=== PATIENT | female | born 1970 | race Caucasian/White ===

== ENCOUNTER 2023-02-21 20:42 | Outpatient (REF) | payer BC, SELFPAY ==
[2023-02-25 13:09] LABS: Age Gdln ACOG Testing Note (.); HPV Aptima Negative (Negative); IGP, Aptima HPV, rfx 16/18,45 Note (.)
== END 2023-02-21 20:43 | disposition home or self-care (01) ==
LOC: LAB 20:42
PROVIDERS: PCP Obstetrics & Gynecology; Visit Provider Obstetrics & Gynecology
DX: Z12.4 Encounter for screening for malignant neoplasm of cervix (principal)
CPT/HCPCS: 87624; G0145

== ENCOUNTER 2024-01-11 13:36 | Outpatient (RCR) | payer OTHER, SELFPAY | END 2024-02-20 10:29 | disposition home or self-care (01) | LOC: OT 13:36 | PROVIDERS: PCP Family Medicine | DX: M77.12 Lateral epicondylitis, left elbow (principal) | CPT/HCPCS: 97014; 97035; 97140; 97165; 97530 ==

== ENCOUNTER 2024-03-07 20:33 | Outpatient (REF) | payer BC, SELFPAY ==
--- OUTSIDE RECORDS SUMMARY | 2024-03-07 20:38 | XMS_ITS | CCD ---
Author Organization [facility] Care Team Providers Care Camp Tender Name Role Phone LILIANE ZAVALA Primary Care Unavailable JESSICA FREITAS Admitting Unavailable JESSICA FREITAS Attending Unavailable NO BELTRAN Referring Unavailable LILIANE ZAVALA Primary Care Unavailable JESSICA FREITAS Admitting Unavailable JESSICA FREITAS Attending Unavailable SELF, REFERRED Referring Unavailable Liliane Zavala Unavailable ALVIN ., DR SCHUMACHER Consulting Unavailable ALVIN ., DR SCHUMACHER Admitting Unavailable ZAVALA, DR LILIANE Poon Primary Care Unavailable ALVIN ., DR SCHUMACHER Attending Unavailable ALVIN ., DR SCHUMACHER Attending Unavailable [place], DR SEDA Donaldson Consulting Unavailable SALLY, DR LILIANE Poon Primary Care Unavailable ALVIN ., DR SCHUMACHER Admitting Unavailable ALVIN ., DR SCHUMACHER Consulting Unavailable JANIYA HAYES Consulting Unavailable ALESHA TREVIÑO Attending Unavailable SALLY, DR LILIANE Poon Primary Care Unavailable ALESHA TREVIÑO Admitting Unavailable SALLY, DR LILIANE Poon Primary Care Unavailable SALLY, DR LILIANE Poon Admitting Unavailable SALLY, DR LILIANE Poon Attending Unavailable SALLY, DR LILIANE Poon Consulting Unavailable MD Liliane Zavala Primary Care Provider MC Rausch Attending Provider Liliane Zavala MD Primary Care Provider MD Liliane Zavala Primary Care Provider MC Rausch Attending Provider MD Liliane Zavala Primary Care Provider MC Rausch Attending Provider MD Liliane Zavala Primary Care Provider MC Rausch Attending Provider WINSOME ESQUIVEL Attending Unavailable MD Liliane Zavala Primary Care Provider MC Rausch Attending Provider DO Pasha Kinney Attending Provider [phone] Rausch, Adriane D Admitting Unavailable Zavala, Liliane E Primary Care Unavailable Rausch, Adriane D Attending Unavailable Zavala, Liliane E Primary Care Unavailable Rausch, Adriane D Admitting Unavailable Rausch, Adriane D Attending Unavailable Zavala, Liliane E Primary Care Unavailable Pasha Kinney Admitting Unavailable Pasha Kinney Attending Unavailable Rausch, Adriane D Admitting Unavailable Zavala, Liliane E Primary Care Unavailable Rausch, Adriane D Attending Unavailable Rausch, Adriane D Admitting Unavailable Zavala, Liliane E Primary Care Unavailable Rausch, Adriane D Attending Unavailable Rausch, Adriane D Admitting Unavailable Zavala, Liliane E Primary Care Unavailable Rausch, Adriane D Attending Unavailable Rausch, Adriane D Admitting Unavailable Zavala, Liliane E Primary Care Unavailable Rausch, Adriane D Attending Unavailable Zavala, Liliane E Primary Care Unavailable Rausch, Adriane D Admitting Unavailable Rausch, Adriane D Attending Unavailable Rausch, Adriane D Admitting Unavailable Zavala, Liliane E Primary Care Unavailable Ruasch, Adriane D Attending Unavailable Rausch, Adriane D Admitting Unavailable Zavala, Liliane E Primary Care Unavailable Rausch, Adriaen D Attending Unavailable Allergies Allergy Classification Reported Allergen(s) Allergy Type Date of Onset Reaction(s) Facility (14 sources) Codeine Drug Allergy 6 Hives [facility] Repository (13 sources) Midazolam Drug Allergy 9 Hives, VERSED [facility] Repository (6 sources) Codeine Drug Allergy 9 hives [facility] Work Phone: (6 sources) Midazolam; Translations: [Versed] Drug Allergy 6 hives [facility] Repository (1 source) Codeine Drug Allergy Unknown [facility] Other (1 source) Allergies Reconciled Propensity to adverse reactions Unknown [employer] Other (1 source) Versed *HYPNOTICS/CARLOTTA TIVES/SLEEP DISORDER AGENTS* Propensity to adverse reactions Unknown [employer] Other (1 source) patient allergy list reviewed by nurse or physicia Propensity to adverse reactions 6 Comment:Done [employer] Other (1 source) Midazolam Drug Allergy 2 [facility] (7 sources) Versed *HYPNOTICS/CARLOTTA TIVES/SL Allergy to substance 3 [facility] (1 source) Codeine Drug Allergy 1 [facility] Repository (1 source) Midazolam Drug Allergy 1 [facility] Repository Medications Current Medications Medication Drug Class(es) Dates Sig (Normalized) Sig (Original) ascorbic acid 500 mg oral capsule (1 source) Vitamin C Ascorbic Acid (Vitamin C) 500 MG capsule Orally 0 Active Calcium (1 source) Phosphate Binder, Calcium calcium 200 MG tablet Calcium 0 Active cetirizine hydrochloride 10 mg oral tablet (4 sources) Histamine-1 Receptor Antagonist take 1 tablet by mouth once daily ZyrTEC 10 MG 1 tablet Orally Once a day Active cholecalciferol 0.025 mg oral capsule (1 source) Vitamin D cholecalciferol (Vitamin D-3) 25 MCG (1000 UT) capsule Vitamin D-3 0 Active 24 hr dilTIAZem hydrochloride 120 mg extended release oral capsule (11 sources) Calcium Channel Jessica Start: 2018 take 1 capsule by mouth once daily, then take 1 capsule by mouth every twenty-four hours Diltiazem Hcl (Cardizem Cd) 120 mg capsule,extended release 24hr Active 120 MG PO Daily 60 August 31, 2018 1:00am 1 ml medroxyPROGESTERone acetate 150 mg/ml injection (8 sources) Progestin Start: 2023 End: 2023 medroxyPROGESTERone (Depo-Provera) injection 150 mg Start: 08-02-2023 End: 08-02-2023 medroxyPROGESTERone (Depo-Pr overa) injection 150 mg Start: 05-09-2023 End: 08-02-2023 medroxyPROGESTERone (Depo-Pr overa) 150 MG/ML injection Indications: control counseling Inject 1 mL (150 mg) into the shoulder, thigh, or buttocks every 3 (three) months 1 mL 0 07/25/2023 Active Depo-Provera 150 MG/ML 1 mL Intramuscular Active Multivitamin preparation (11 sources) Start: 08-31-2018 take 1 tablet by mouth once daily Multivitamin Active 1 TAB PO Daily August 31, 2018 1:00am Start: 08-31-2018 take 1 tablet by paulo th once daily Multivitamin Active 1 TAB PO Daily August 31, 2018 12:00am sertraline 50 mg oral tablet (3 sources) Serotonin Reuptake Inhibitor Start: 12-11-2022 take 1 tablet by mouth once daily Sertraline HCl 50 MG 1 tablet Orally Once a day for 30 days Nov, Active Start: 12-11-2022 tazarotene 0.45 mg/ml topica l lotion (4 sources) Retinoid Arazlo 0.045 % 1 application Externally Once a day Active Arazlo 0.045 % 1 application Externally Once a day Active zolpidem tartrate 6.25 mg extended release oral tablet (13 sources) gamma-Aminobutyric Acid-ergic Agonist Start: 08-10-2023 End: 09-26-2023 take 6.25 mg by mouth once daily at bedtime Zolpidem Active 6.25 MG PO Daily at bedtime September 26, 2023 12:45pm Start: 06-22-2023 End: 08-02-2023 take 1 tablet by mouth once daily at bedtime as needed zolpidem CR (Ambien CR) 6.25 MG ER tablet TAKE 1 TABLET BY MOUTH EVERYDAY AT BEDTIME NEEDED 0 06/22/2023 08/02/2023 Discontinued Problems Active Problems Problem Classification Problem Date Documented Da te Episodic/Chronic Adjustment disorders (6 sources) Adjustment disorder with mixed emotional features; Translations: [Adjustment disorder with mixed anxiety and depressed mood] Onset: 7 Chronic Anxiety disorders (1 source) Anxiety disorder; Translations: [Other specified anxiety disorders] Onset: 8 Chronic Asthma (4 sources) Asthma; Translations: [Unspecified asthma, uncomplicated] Chronic Cardiac dysrhythmias (1 source) Supraventricular tachycardia; Translations: [Supraventricular tachycardia] Chronic Contraceptive and procreative management (3 sources) Surveillance of depot contraception done; Translations: [Encounter for surveillance of injectable contraceptive] Onset: 2 Resolved: 1 07-28-2023 Episodic Immunizations and screening for infectious disease (2 sources) Encounter for screening for human papillomavirus (HPV); Translations: [Human papilloma virus screening] Onset: 2 Episodic Malaise and fatigue (2 sources) Other fatigue; Translations: [OTHER FATIGUE] Onset: 3 Episodic Mycoses (1 source) Candidiasis; Translations: [Candidiasis, unspecified] Episodic Other aftercare (1 source) Long-term current use of drug therapy; Translations: [Other senior care (current) drug therapy] Episodic Other connective tissue disease (5 sources) Pain in right lower leg; Translations: [PAIN IN RIGHT LOWER LEG] Onset: 3 Episodic Other connective tissue disease (1 source) Trochanteric bursitis, right hip Episodic Other connective tissue disease (2 sources) Lateral epicondylitis of left humerus; Translations: [Lateral epicondylitis, left elbow] 02-29-2024 Episodic Other connective tissue disease (3 sources) Lateral epicondylitis, left elbow; Translations: [Lateral epicondylitis] Onset: 4 03-01-2024 Episodic Other screening for suspected conditions (not mental disorders or infectious disease) (10 sources) Encounter for screening mammogram for malignant neoplasm of breast; Translations: [Encounter for screening for malignant neoplasm of cervix] Onset: 2 Episodic Other upper respiratory infections (1 source) Chronic sinusitis; Translations: [Chronic sinusitis, unspecified] Chronic Phlebitis; thrombophlebitis and thromboembolism (5 sources) Deep venous thrombosis of peroneal vein; Translations: [Acute embolism and thrombosis of unspecified deep veins of left distal lower extremity] Onset: 9 Episodic Residual codes; unclassified (4 sources) Postmenopausal state; Translations: [Asymptomatic menopausal state] Onset: 2 Episodic Residual codes; unclassified (1 source) Postprocedural state finding; Translations: [Other specified postprocedural states] Episodic Residual codes; unclassified (1 source) Tobacco user; Translations: [Tobacco use] Episodic Residual codes; unclassified (7 sources) Insomnia; Translations: [Insomnia, unspecified] 08-10-2023 Episodic Unclassified (1 source) Acute candidiasis of vulva and vagina; Translations: [Acute candidiasis of vulva and vagina] Unclassified (1 source) Lateral epicondylitis, left elbow; Translations: [Lateral epicondylitis, left elbow] Onset: 3 Viral infection (11 sources) Disease caused by nCoV; Translations: [COVID-19] 05-24-2021 Episodic Viral infection (1 source) Disease caused by nCoV; Translations: [COVID-19] Past or Other Problems Problem Classification Problem Date Documented Date Episodic/Chronic Blindness and vision defects (1 source) Visual disturbance; Translations: [Unspecified visual disturbance] Onset: 03-07-2018 Episodic Headache; including migraine (1 source) Headache; Translations: [Headache] Onset: 03-07-2018 Episodic Other connective tissue disease (1 source) Pain in limb; Translations: [Pain in soft tissues of limb] Onset: 11-02-2018 Episodic Other female genital disorders (1 source) Dysplasia of cervix; Translations: [Dysplasia of cervix uteri, unspecified] Onset: 02-04-2016 Episodic Other upper respiratory infections (1 source) Acute maxillary sinusitis; Translations: [Acute recurrent maxillary sinusitis] Onset: 08-13-2016 Episodic Residual codes; unclassified (1 source) Asymptomatic menopausal state; Translations: [ASYMPTOMATIC MENOPAUSAL STATE] Onset: 05-10-2022 Episodic Residual codes; unclassified (1 source) Other specified health status; Translations: [Health status] Resolved: 02-18-2021 Episodic Spondylosis; intervertebral disc disorders; other back problems (1 source) Disorder of sacrococcygeal spine; Translations: [Sacrococcygeal disorders, not elsewhere classified] Onset: 07-01-2016 Episodic Unclassified (1 source) Contraception care management; Translations: [Unspecified contraceptive management] Results Test Name Value Interpretation Reference Range Facility XR elbow LT min 3V*on 2023 XR elbow LT min 3V* [facility] [address] [place] [address] XRay Report Signed Patient: Julia Quispe MR#: [id number] 74 : 1970 Acct:[id number] Age/Sex: 53 / F ADM Date: 03/01/24 Loc: SOXD Room: Type: [facility] Attending Dr: Pasha Kinney DO Copies to: Pasha Kinney DO Ordering Provider: Pasha Kinney DO Date of Service: 03/01/24 XR/XR elbow LT min 3V*: M77.12 - Lateral epicondylitis, left elbow LEFT ELBOW - 4 VIEWS CLINICAL HISTORY: Left lateral epicondylitis COMPARISON: None AP, lateral and both oblique views were obtained. There is no evidence of fracture or dislocation. There are no significant soft tissue abnormalities. There is no elbow effusion. XR/XR elbow LT min 3V* IMPRESSION: NO ACUTE BONY FINDINGS. Impression dictated by: Nikole Macdonald M.D.03/01/2024 3:31 PM Dictation Location: [place] [address] Transcribed By: [facility] 03/01/24 1531 Dictated By: Nikole Macdonald MD 03/01/24 1530 Signed By: 03/01/24 1531 Normal [facility] HCG ( test) Ql (U)o n 08-02-2023 Interpretation and review of laboratory results Normal [facility] Healt[facility] re Preg Test, Ur Negative [facility] CBC AUTO DIFFon 10-27-2022 BASO # 0.0 103/ul Normal 0.0-0.1 [facility] Comment on above: Performed By: #### C BC #### [facility] [address] [place] [address] Dr. Neeta Nunez Basophils/100 WBC (Bld) 0.3 % Normal 0.2-2.0 [facility] Comment on above: Performed By: #### C BC #### [facility] [address] [place] [address] Dr. Neeta Nunez EO # 0.0 103/ul Normal 0.0-0.7 [facility] Comment on above: Performed By: #### C BC #### [facility] [address] [place] [address] Dr. Neeta Nunez Eosinophils/100 WBC (Bld) 0.3 % Critically low 0.9-7.0 [facility] Comment on above: Performed By: #### C BC #### [facility] [address] [place] [address] Dr. Neeta Nunez Erythrocyte distribution width (RBC) [Ratio] 12.9 % Normal 11.0-15.0 [facility] Comment on above: Performed By: #### C BC #### [facility] [address] [place] [address] Dr. Neeta Nunez Hematocrit (Bld) [Volume fraction] 44.3 % Normal 36.0-48.0 [facility] Comment on above: Performed By: #### C BC #### [facility] [address] [place] [address] Dr. Neeta Nunez Hemoglobin (Bld) [Mass/Vol] 14.6 g/dL Normal 12.0-16.0 [facility] Comment on above: Performed By: #### C BC #### [facility] [address] [place] [address] Dr. Neeta Nunez IG # 0.01 10e3/ul Normal 0.00-0.03 [facility] Comment on above: Performed By: #### C BC #### [facility] [address] [place] [address] Dr. Neeta Nunez IG % 0.1 % Normal 0.0-0.5 [facility] Comment on above: Performed By: #### C BC #### [facility] [address] [place] [address] Dr. Neeta Nunez LYMPH # 2.4 103/ul Normal 1.2-3.8 [facility] Comment on above: Performed By: #### C BC #### [facility] [address] [place] [address] Dr. Neeta Nunez Lymphocytes/100 WBC (Bld) 32.5 % Normal 20.5-60.0 [facility] Comment on above: Performed By: #### C BC #### [facility] [address] [place] [address] Dr. Neeta Nunez MANUAL DIFF REQ NO Normal [facility] Comment on above: Performed By: #### C BC #### [facility] [address] [place] [address] Dr. Neeta Nunez MCH (RBC) [Entitic mass] 31.7 pg Normal 26.7-34.0 [facility] Comment on above: Performed By: #### C BC #### [facility] [address] [place] [address] Dr. Neeta Nunez MCHC (RBC) [Mass/Vol] 33.0 g/dL Normal 29.9-35.2 [facility] Comment on above: Performed By: #### C BC #### [facility] [address] [place] [address] Dr. Neeta Nunez MCV (RBC) [Entitic vol] 96.1 fL Normal 81.0-99.0 [facility] Comment on above: Performed By: #### C BC #### [facility] [address] [place] [address] Dr. Neeta Nunez MONO # 0.4 103/ul Normal 0.3-0.8 [facility] Comment on above: Performed By: #### C BC #### [facility] [address] [place] [address] Dr. Neeta Nunez Monocytes/100 WBC (Bld) 5.3 % Normal 1.7-12.0 [facility] Comment on above: Performed By: #### C BC #### [facility] [address] [place] [address] Dr. Neeta Nunez NEUT # 4.6 103/ul Normal 1.4-6.5 [facility] Comment on above: Performed By: #### C BC #### [facility] [address] [place] [address] Dr. Neeta Nunez Neutrophils/100 WBC (Bld) 61.5 % Normal 43.0-75.0 [facility] Comment on above: Performed By: #### C BC #### [facility] [address] [place] [address] Dr. Neeta Nunez Platelet mean volume (Bld) [Entitic vol] 8.6 fL Critically low 9.5-13.5 [facility] Comment on above: Performed By: #### C BC #### [facility] [address] [place] [address] Dr. Neeta Nunez PLT 278 103/ul Normal 150-450 [facility] Comment on above: Performed By: #### C BC #### [facility] [address] [place] [address] Dr. Neeta Nunez RBC 4.61 106/ul Normal 4.20-5.40 [facility] Comment on above: Performed By: #### C BC #### [facility] [address] [place] [address] Dr. Neeta Nunez WBC 7.4 103/ul Normal 4.0-11.0 [facility] Comment on above: Performed By: #### C BC #### [facility] [address] [place] [address] Dr. Neeta Nunez D-DIMERon 10-27-2022 D-DIMER 0.22 mg/L FEU Normal <=0.59 [facility] Comment on above: Performed By: #### D DIM #### [facility] [address] [place] [address] Dr. Neeta Nunez D-DIMER COMMENTS SEE BELOW Normal [facility] Comment on above: Result Comment: Incr eases in D-Dimer concentration observed with thromboembolic events can be variable due to localization, size, and age of the thrombus. Therefore, a thromboembolic event cannot be diagnosed with certainty on the basis of the reference range. D-Dimers may also be elevated for a variety of disorders including: advanced age, , coronary disease, cancer, liver disease, infection, inflammation, hematoma, DIC, trauma, post-surgery, diabetes, thrombolytic or anticoagulant therapy, stress, and generalized hospitalization. Performed By: #### D DIM #### [facility] [address] [place] [address] Dr. Neeta Nunez FREE T4on 10-27-2022 Free T4 [Mass/Vol] 0.94 ng/dL Normal 0.76-1.46 [facility] Comment on above: Performed By: #### F T4 #### [facility] [address] [place] [address] Dr. Neeta Nunez PROF CHEM 8 (BAS METB)on Anion gap [Moles/Vol] 13.2 mmol/L Normal [facility] Comment on above: Performed By: #### T SH, BMP #### [facility] [address] [place] [address] Dr. Neeta Nunez Calcium [Mass/Vol] 9.8 mg/dL Normal 8.5-10.1 [facility] Comment on above: Performed By: #### T SH, BMP #### [facility] [address] [place] [address] Dr. Neeta Nunez Chloride [Moles/Vol] 102 mmol/L Normal 98-107 [facility] Comment on above: Performed By: #### T SH, BMP #### [facility] [address] [place] [address] Dr. Neeta Nunez CO2 [Moles/Vol] 28.2 mmol/L Normal 21.0-32.0 [facility] Comment on above: Performed By: #### T SH, BMP #### [facility] [address] [place] [address] Dr. Neeta Nunez Creatinine [Mass/Vol] 0.88 mg/dL Normal 0.55-1.02 [facility] Comment on above: Performed By: #### T SH, BMP #### [facility] [address] [place] [address] Dr. Neeta Nunez EGFR-AF [place]OU[place] >60 Normal >=60 [facility] Comment on above: Performed By: #### T SH, BMP #### [facility] [address] [place] [address] Dr. Neeta Nunez EGFR-NON AF [place] >60 Normal >=60 [facility] Comment on above: Performed By: #### T SH, BMP #### [facility] [address] [place] [address] Dr. Neeta Nunez Glucose [Mass/Vol] 103 mg/dL Normal 74-106 [facility] Comment on above: Performed By: #### T SH, BMP #### [facility] [address] [place] [address] [address] Neeta Nunez Potassium [Moles/Vol] 3.4 mmol/L Critically low 3.5-5.1 [facility] Comment on above: Performed By: #### T SH, BMP #### [facility] [address] [place] [address] [address] Neeta Nunez Sodium [Moles/Vol] 140 mmol/L Normal 136-145 [facility] Comment on above: Performed By: #### T SH, BMP #### [facility] [address] [place] [address] [address] Neeta Nunez Urea nitrogen [Mass/Vol] 21.0 mg/dL Critically high 7.0-18.0 [facility] Comment on above: Performed By: #### T SH, BMP #### [facility] [address] [place] [address] Dr. Neeta Nunez Urea nitrogen/Creatinine [Mass ratio] 23.9 mg/mg Normal [facility] Comment on above: Performed By: #### T SH, BMP #### [facility] [address] [place] [address] [address] Neeta Nunez TSHon 10-27-2022 TSH 0.980 uIU/mL Normal 0.358-3.740 [facility] Comment on above: Performed By: #### T SH, BMP #### [facility] [address] [place] [address] Dr. Neeta Nunez MG MAMM SCREEN 3D KATARINA CADon 05-07-2022 MG MAMM SCREEN 3D KATARINA CAD Patient: JULIA QUISPE Exam Date: 05/07/2022 : 1970 Gender:F Ordering : DR WINSOME ESQUIVEL . Admission #: [id number] Family : Order #: [id number] CLICK HERE TO VIEW EXAM RADIOLOGY REPORT PROCEDURE: MAMMOGRAM SCREENING 3D BILATERAL CAD COMPARISON: MG MAMM SCREEN 3D KATARINA CAD, 01/08/2021. MG MAMM SCREEN KATARINA W CAD, 12/20/2019. INDICATIONS: Screening mammography Calculator Name NCI Breast Cancer Risk Assessment Tool 5 Year Breast Cancer Risk 1.80% Lifetime Breast Cancer Risk 16.20% Personal Breast Cancer No Personal Ovarian Cancer No Treatments None Family Cancers None LOCATION: [facility] BREAST COMPOSITION: Heterogeneously dense,which may obscure small masses. FINDINGS: DIAGNOSTIC CATEGORY 1--NEGATIVE. NO CHANGE FROM COMPARISON ASSESSMENT. Scattered benign-appearing calcifications are present. Scattered benign-appearing lymph nodes are present. RIGHT BREAST: No significant suspicious finding. Stable micro clip marker lower inner quadrant LEFT BREAST: No significant suspicious finding. RECOMMENDATIONS: ROUTINE MAMMOGRAM AND CLINICAL EVALUATION IN 12 MONTHS. PLEASE NOTE: A NORMAL MAMMOGRAM DOES NOT EXCLUDE THE POSSIBILITY OF BREAST CANCER. A CLINICALLY SUSPICIOUS PALPABLE LUMP SHOULD BE BIOPSIED. Dictated by: Seda Urias MD on 05/07/2022 at 09:14 Approved by: Seda Urias MD on 05/07/2022 at 09:15 Normal [facility] XR DEXA BONE DENSITYon 05-07 XR DEXA BONE DENSITY EXAMINATION: XR DEXA BONE DENSITY, 05/07/2022 6:50 AM EST HISTORY: Menopause present COMPARISON: DEXA bone densitometry 01/28/2016 TECHNIQUE: Dual-energy X-ray absorptiometry (DEXA) bone density study performed for the axial skeleton. FINDINGS: SPINE ANALYSIS: Average bone mineral density is 1.165 g/cm2. T-score (standard deviation relative to young adult mean): -0.1 . -10.6% change since prior study. HIP ANALYSIS: Lowest bone mineral density is within the right femoral neck, 0.917 g/cm2. T-score (standard deviation relative to young adult mean): -0.9 . -11.7% change since prior study. IMPRESSION: [employer] Classification: Normal - Low Fracture Risk Electronically authenticated by: JANIYA HAYES Date: 2022-05-07 07:27 Normal [facility] Abstracton 02-25-2022 Abstract [id number] Alia Qusipe 1970 F Date Provider Department Center 02/25/2022 [id number] ALVARES [facility] Comprehensiv Family History Problem Relation Age of Onset Atrial fibrillation Mother Atrial fibrillation Father Family Status - Relation Status Age at Mother Father Normal [facility] PAP ACOG PANEL 2: 30 to 65on 02-05-2022 . . Normal [facility] Comment on above: Result Comment: Perf ormed at: WB Performed By: #### 4 [id number] #### [facility] [address] [place] [address] Dr. Neeta Nunez Age Gdln ACOG Testing 30-65 Normal [facility] Comment on above: Performed By: #### 4 [id number] #### [facility] [address] [place] [address] Dr. Neeta Nunez DIAGNOSIS: Comment Normal [facility] Comment on above: Result Comment: NEGA TIVE FOR INTRAEPITHELIAL LESION OR MALIGNANCY. CELLULAR CHANGES ASSOCIATED WITH ATROPHY ARE PRESENT. Performed at: WB Performed By: #### 4 [id number] #### [facility] [address] [place] [address] Dr. Neeta Nunez HPV Aptima Negative Normal Negative [facility] Comment on above: Result Comment: This nucleic acid amplification test detects fourteen high-risk HPV types (16,18,31,33,35,39,45,51,52,56,58,59,66,68) without differentiation. Performed at: =G Performed By: #### 4 [id number] #### [facility] [address] [place] [address] Dr. Neeta Nunez Methodology: Comment Normal [facility] Comment on above: Result Comment: This liquid based ThinPrep(R) pap test was screened with the use of an image guided system. Performed at: WB Performed By: #### 4 [id number] #### [facility] [address] [place] [address] Dr. Neeta Nunez Note: Comment Normal [facility] Comment on above: Result Comment: The Pap smear is a screening test designed to aid in the detection of premalignant and malignant conditions of the uterine cervix. It is not a diagnostic procedure and should not be used as the sole means of detecting cervical cancer. Both false-positive and false-negative reports do occur. . Performed at: WB Performed By: #### 4 [id number] #### [facility] [address] [place] [address] Dr. Neeta Nunez Performed by: Comment Normal [facility] Comment on above: Result Comment: Herb White, [employer]n [employer] (ASCP) Performed at: WB Performed By: #### 4 [id number] #### [facility] [address] [address] [address] Neeta Nunez Specimen adequacy: Comment Normal [facility] Comment on above: Result Comment: Sati sfactory for evaluation. Endocervical component may not be distinguished in cases of atrophy. Performed at: WB Performed By: #### 4 [id number] #### [facility] [address] [address] [address] Neeta Nunez BASIC METABOLIC PANELon 05- Calcium [Mass/Vol] 9.1 mg/dL Normal 8.6-10.3 [facility] Comment on above: Order Comment: No: D o not add to previous draw Performed By: #### 1 0070, 95804, 66420 #### [facility] [address] [place] [address], [place] Chloride [Moles/Vol] 105 mmol/L Normal 98-107 [facility] Comment on above: Order Comment: No: D o not add to previous draw Performed By: #### 1 0070, 86263, 39156 #### [facility] [address] [place] [address], [place] CO2 [Moles/Vol] 26 mmol/L Normal 21-31 [facility] Comment on above: Order Comment: No: D o not add to previous draw Performed By: #### 1 0070, 55106, 94325 #### [facility] [address] [place] [address], [place] Creatinine [Mass/Vol] 0.68 mg/dL Normal 0.60-1.20 [facility] Comment on above: Order Comment: No: D o not add to previous draw Performed By: #### 1 0070, 85765, 14468 #### [facility] [address] [place] [address], [place] GFR/1.73 sq M.predicted among blacks MDRD (S/P/Bld) [Vol rate/Area] mL/min/{1.73_m2} Normal >60 [facility] Comment on above: Order Comment: No: D o not add to previous draw Performed By: #### 1 0, 73271, 52926 #### [facility] [address] [place] [address], [place] GFR/1.73 sq M.predicted among non-blacks MDRD (S/P/Bld) [Vol rate/Area] mL/min/{1.73_m2} Normal >60 [facility] Comment on above: Order Comment: No: D o not add to previous draw Performed By: #### 1 0070, 56337, 44810 #### [facility] [address] [place] [address], [place] Glucose [Mass/Vol] 90 mg/dL Normal 70-100 [facility] Comment on above: Order Comment: No: D o not add to previous draw Performed By: #### 1 0, 40637, 38341 #### [facility] [address] [place] [address], [place] Potassium [Moles/Vol] 4.0 mmol/L Normal 3.5-5.1 [facility] Comment on above: Order Comment: No: D o not add to previous draw Performed By: #### 1 0, 57362, 54095 #### [facility] [address] [place] [address], [place] Sodium [Moles/Vol] 137 mmol/L Normal 136-145 [facility] Comment on above: Order Comment: No: D o not add to previous draw Performed By: #### 1 0070, 51980, 37545 #### [facility] [address] [place] [address], [place] Urea nitrogen [Mass/Vol] 7 mg/dL Normal 7-25 [facility] Comment on above: Order Comment: No: D o not add to previous draw Performed By: #### 1 0, 58367, 93210 #### [facility] [address] [place] [address], [facility] CBC COMPLETE BLOOD COUNTon 11-07-2021 Erythrocyte distribution width (RBC) [Ratio] 13.6 % Normal 11.5-15.0 [facility] Comment on above: Order Comment: RLQ P ERIHEPATIC FLUID DRAINAGE Performed By: #### 3 0310 #### [facility] [address] [place] [address], [facility] Hematocrit (Bld) [Volume fraction] 29.5 % Low 36.0-45.0 [facility] Comment on above: Order Comment: RLQ P ERIHEPATIC FLUID DRAINAGE Performed By: #### 3 0310 #### [facility] [address] [place] [address], [facility] Hemoglobin (Bld) [Mass/Vol] 8.7 g/dL Low 12.0-15.0 [facility] Comment on above: Order Comment: RLQ P ERIHEPATIC FLUID DRAINAGE Performed By: #### 3 0310 #### [facility] [address] [place] [address], [facility] MCH (RBC) [Entitic mass] 28.5 pg Normal 27.0-33.0 [facility] Comment on above: Order Comment: RLQ P ERIHEPATIC FLUID DRAINAGE Performed By: #### 3 0310 #### [facility] [address] [place] [address], [facility] MCHC (RBC) [Mass/Vol] 29.5 g/dL Low 32.0-35.0 [facility] Comment on above: Order Comment: RLQ P ERIHEPATIC FLUID DRAINAGE Performed By: #### 3 0310 #### [facility] [address] [place] [address], [facility] MCV (RBC) [Entitic vol] 96.7 fL Normal 82.0-98.0 [facility] Comment on above: Order Comment: RLQ P ERIHEPATIC FLUID DRAINAGE Performed By: #### 3 0310 #### [facility] [address] [place] [address], [facility] Nucleated RBC/100 WBC (Bld) [Ratio] 0 % Normal 0-0 [facility] Comment on above: Order Comment: RLQ P ERIHEPATIC FLUID DRAINAGE Performed By: #### 3 0310 #### [facility] [address] [place] [address], [facility] PLAT CNT 422 10*3/uL High 150-400 [facility] Comment on above: Order Comment: RLQ P ERIHEPATIC FLUID DRAINAGE Performed By: #### 3 0310 #### [facility] [address] [facility] [place] [address], [facility] RBC (Bld) [#/Vol] 3.05 10*6/uL Low 3.80-5.00 The [facility] Comment on above: Order Comment: RLQ P ERIHEPATIC FLUID DRAINAGE Performed By: #### 3 0310 #### [facility] [address] [facility] [place] [address], [facility] WBC (Bld) [#/Vol] 4.76 10*3/uL Normal 4.00-10.60 [facility] Comment on above: Order Comment: RLQ P ERIHEPATIC FLUID DRAINAGE Performed By: #### 3 0310 #### [facility] [address] [facility]. [address] APTTon 11-06-2021 aPTT Coag (Bld) [Time] 32.4 s Normal 25.0-35.0 [facility] Comment on above: Order Comment: No: D o not add to previous draw Result Comment: ALL RESULTS MUST BE INTERPRETED WITH RESPECT TO BLOOD DRAWING ARTIFACT OR DILUTION ERROR OF ANTICOAGULANT AT THE TIME OF SAMPLING. THE APTT SHOULD NOT BE USED TO MONITOR UNFRACTIONATED HEPARIN THERAPY, THIS LABORATORY NO LONGER HAS AN ESTABLISHED THERAPEUTIC RANGE BASED ON THE APTT. IT IS RECOMMENDED THAT THE UFH - HEPARIN ASSAY (ANTI-XA ACTIVITY) BE USED FOR THIS PURPOSE. Performed By: #### 1 0070, 09219, 83481 #### [facility] [address] [place] [address], [place] BASIC METABOLIC PANELon 05- Calcium [Mass/Vol] 8.9 mg/dL Normal 8.6-10.3 [facility] Comment on above: Order Comment: No: D o not add to previous draw Performed By: #### 1 0070, 10949, 97612 #### [facility] [address] [place] [address], [place] Chloride [Moles/Vol] 105 mmol/L Normal 98-107 [facility] Comment on above: Order Comment: No: D o not add to previous draw Performed By: #### 1 0070, 73741, 57880 #### [facility] [address] [place] [address], [place] CO2 [Moles/Vol] 25 mmol/L Normal 21-31 [facility] Comment on above: Order Comment: No: D o not add to previous draw Performed By: #### 1 0070, 82136, 28405 #### [facility] [address] [place] [address], [place] Creatinine [Mass/Vol] 0.72 mg/dL Normal 0.60-1.20 [facility] Comment on above: Order Comment: No: D o not add to previous draw Performed By: #### 1 0070, 47134, 07761 #### [facility] [address] [place] [address], [place] GFR/1.73 sq M.predicted among blacks MDRD (S/P/Bld) [Vol rate/Area] mL/min/{1.73_m2} Normal >60 [facility] Comment on above: Order Comment: No: D o not add to previous draw Performed By: #### 1 0070, 14385, 61576 #### [facility] [address] [place] [address], [place] GFR/1.73 sq M.predicted among non-blacks MDRD (S/P/Bld) [Vol rate/Area] mL/min/{1.73_m2} Normal >60 [facility] Comment on above: Order Comment: No: D o not add to previous draw Performed By: #### 1 0070, 36894, 96377 #### [facility] [address] [place] [address], [facility] Glucose [Mass/Vol] 95 mg/dL Normal 70-100 The [facility] Comment on above: Order Comment: No: D o not add to previous draw Performed By: #### 1 0070, 37274, 80308 #### [facility] [address] [place] [address], [facility] Potassium [Moles/Vol] 3.9 mmol/L Normal 3.5-5.1 [facility] Comment on above: Order Comment: No: D o not add to previous draw Performed By: #### 1 0070, 78609, 80672 #### [facility] [address] [place] [address], [facility] Sodium [Moles/Vol] 137 mmol/L Normal 136-145 [facility] Comment on above: Order Comment: No: D o not add to previous draw Performed By: #### 1 0070, 95282, 96377 #### [facility] [address] [place] [address], [place] Urea nitrogen [Mass/Vol] 8 mg/dL Normal 7-25 [facility] Comment on above: Order Comment: No: D o not add to previous draw Performed By: #### 1 0070, 34588, 97238 #### [facility] [address] [place] [address], [facility] CBC COMPLETE BLOOD COUNTon 0 - Erythrocyte distribution width (RBC) [Ratio] 13.6 % Normal 11.5-15.0 [facility] Comment on above: Order Comment: RLQ P ERIHEPATIC FLUID DRAINAGE Performed By: #### 3 0310 #### [facility] [address] [place] [address], [facility] Hematocrit (Bld) [Volume fraction] 29.6 % Low 36.0-45.0 [facility] Comment on above: Order Comment: RLQ P ERIHEPATIC FLUID DRAINAGE Performed By: #### 3 0310 #### [facility] [address] [place] [address], [facility] Hemoglobin (Bld) [Mass/Vol] 9.2 g/dL Low 12.0-15.0 [facility] Comment on above: Order Comment: RLQ P ERIHEPATIC FLUID DRAINAGE Performed By: #### 3 0310 #### [facility] [address] [place] [address], [facility] MCH (RBC) [Entitic mass] 29.6 pg Normal 27.0-33.0 [facility] Comment on above: Order Comment: RLQ P ERIHEPATIC FLUID DRAINAGE Performed By: #### 3 0310 #### [facility] [address] [place] [address], [facility] MCHC (RBC) [Mass/Vol] 31.1 g/dL Low 32.0-35.0 [facility] Comment on above: Order Comment: RLQ P ERIHEPATIC FLUID DRAINAGE Performed By: #### 3 0310 #### [facility] [address] [place] [id number], [facility] MCV (RBC) [Entitic vol] 95.2 fL Normal 82.0-98.0 [facility] Comment on above: Order Comment: RLQ P ERIHEPATIC FLUID DRAINAGE Performed By: #### 3 0310 #### [facility] [address] [place] [id number], [facility] Nucleated RBC/100 WBC (Bld) [Ratio] 0 % Normal 0-0 [facility] Comment on above: Order Comment: RLQ P ERIHEPATIC FLUID DRAINAGE Performed By: #### 3 0310 #### [facility] [address] [place] [address], [facility] PLAT CNT 476 10*3/uL High 150-400 [facility] Comment on above: Order Comment: RLQ P ERIHEPATIC FLUID DRAINAGE Performed By: #### 3 0310 #### [facility] [address] [place] [address], [facility] RBC (Bld) [#/Vol] 3.11 10*6/uL Low 3.80-5.00 The [facility] Comment on above: Order Comment: RLQ P ERIHEPATIC FLUID DRAINAGE Performed By: #### 3 0310 #### [facility] [address] [place] [address], [facility] WBC (Bld) [#/Vol] 6.78 10*3/uL Normal 4.00-10.60 [facility] Comment on above: Order Comment: RLQ P ERIHEPATIC FLUID DRAINAGE Performed By: #### 3 0310 #### [facility] [address] [place] [id number], [facility] LIVER BATTERYon 11-06-2021 Albumin [Mass/Vol] 3.3 g/dL Low 3.5-5.7 [facility] Comment on above: Order Comment: No: D o not add to previous draw Performed By: #### 1 0070, 22681, 17997 #### [facility] [address] [place] [address], [facility] ALKALINE PHOSPH 108 IU/L High 34-104 [facility] Comment on above: Order Comment: No: D o not add to previous draw Performed By: #### 1 0070, 76261, 88863 #### [facility] [address] [place] [address], [facility] ALT [Catalytic activity/Vol] 50 U/L Normal 7-52 [facility] Comment on above: Order Comment: No: D o not add to previous draw Performed By: #### 1 0070, 38533, 98684 #### [facility] [address] [place] [address], [place] AST [Catalytic activity/Vol] 11 U/L Low 13-39 [facility] Comment on above: Order Comment: No: D o not add to previous draw Performed By: #### 1 0070, 23840, 95522 #### [facility] [address] [place] [address], [place] Bilirubin [Mass/Vol] 0.8 mg/dL Normal 0.3-1.0 [facility] Comment on above: Order Comment: No: D o not add to previous draw Performed By: #### 1 0, 58263, 13945 #### [facility] [address] [place] [address], [place] Bilirubin.direct [Mass/Vol] 0.2 mg/dL Normal 0.0-0.2 [facility] Comment on above: Order Comment: No: D o not add to previous draw Performed By: #### 1 0, 85876, 11555 #### [facility] [address] [place] [address], [place] Protein [Mass/Vol] 6.3 g/dL Normal 6.0-8.3 [facility] Comment on above: Order Comment: No: D o not add to previous draw Performed By: #### 1 0, 66864, 48768 #### [facility] [address] [place] [address], [place] MAGNESIUM BLOODon 11-06-2021 Magnesium [Mass/Vol] 2.0 mg/dL Normal 1.9-2.7 [facility] Comment on above: Order Comment: No: D o not add to previous draw Performed By: #### 1 0070, 34989, 13614 #### [facility] [address] [place] [address], [place] PHOSPHORUS BLOODon Phosphate [Mass/Vol] 4.2 mg/dL Normal 2.5-5.0 [facility] Comment on above: Order Comment: No: D o not add to previous draw Performed By: #### 1 69, 14014, 66650 #### [facility] [address] [place] [address], [facility] PROTHROMBIN TIMEon 2 INR Coag (PPP) [Relative time] 1.12 {INR} Normal 0.91-1.16 [facility] Comment on above: Order Comment: No: D o not add to previous draw Result Comment: ACCC P RECOMMENDED INR FOR WARFARIN THERAPY ------ ------- CONDITION INR PROPHYLAXIS OF VENOUS THROMBOSIS 2-3 (HIGH-RISK SURGERY) TREATMENT OF VENOUS THROMBOSIS 2-3 TREATMENT OF PULMONARY EMBOLISM 2-3 PREVENTION OF SYSTEMIC EMBOLISM: 2-3 ACUTE MYOCARDIAL INFARCTION TISSUE HEART VALVES VALVULAR HEART DISEASE ATRIAL FIBRILLATION RECURRENT SYSTEMIC EMBOLISM MECHANICAL HEART VALVE 2.5-3.5 FROM: ORAL ANTICOAGULANTS. MECHANISM OF ACTION, CLINICAL EFFECTIVENESS, AND OPTIMAL THERAPEUTIC RANGE. CHEST 1995;108:231S-246S. Performed By: #### 1 69, 40443, 29539 #### [facility] [address] [place] [address], [facility] PT Coag (PPP) [Time] 14.4 s Normal 12.3-14.8 [facility] Comment on above: Order Comment: No: D o not add to previous draw Result Comment: ALL RESULTS MUST BE INTERPRETED WITH RESPECT TO BLOOD DRAWING ARTIFACT OR DILUTION ERROR OF ANTICOAGULANT AT THE TIME OF SAMPLING. Performed By: #### 1 69, 23335, 91333 #### [facility] [address] *ABSCESS CULTUREon *ABSCESS CULTURE Clinical Report: (D) Specimen: ABSCESS Collected: 11/05/2021 13:06 Status: Final Last Updated: 11/08/2021 07:07 (1) RLQ PERIHEPATIC FLUID DRAINAGE GRAM (Final) Many Polys No Bacteria Seen ISO (Final) Escherichia coli Heavy Growth ISOLATE: Escherichia coli --- MILLICENT (mcg/ml) AMP./SULBAC (AMS) 8/4 Susceptible AMPICILLIN (AM) <=4 Susceptible AZTREONAM (AZM) <=2 Susceptible CEFAZOLIN (CZ) 4 Susceptible CEFTRIAXONE (YARN HANDLER) <=1 Susceptible CIPROFLOXACIN (CIP) <=0.25 Susceptible ESBL (-/+) (ESBL) Negative GENTAMICIN (GM) <=2 Susceptible PIP/TAZO (TZP) <=2/4 Susceptible TOBRAMYCIN (TOB) <=2 Susceptible TRIMETH/SULFA (SXT) <=0.5/9.5 Susceptible Normal [facility] Comment on above: Order Comment: RLQ P ERIHEPATIC FLUID DRAINAGE Performed By: #### 3 0310 #### [address] *ANAEROBIC CULTUREon 022 *ANAEROBIC CULTURE Clinical Report: (D) Specimen: DRAINAGE Collected: 11/05/2021 13:06 Status: Final Last Updated: 11/10/2021 09:47 (1) RLQ PERIHEPATIC FLUID DRAINAGE ISO (Final) Bacteroides fragilis Beta-Lactamase Positive ISO (Final) Eubacterium species Result changed by [email or web address] on 11/10/2021 09:47. The previous result was: ISO (Prelim) Normal [facility] Comment on above: Order Comment: RLQ P ERIHEPATIC FLUID DRAINAGE Performed By: #### 3 0310 #### [facility] [address] APTTon 11-05-2021 aPTT Coag (Bld) [Time] 28.6 s Normal 25.0-35.0 [facility] Comment on above: Order Comment: No: D o not add to previous draw Result Comment: ALL RESULTS MUST BE INTERPRETED WITH RESPECT TO BLOOD DRAWING ARTIFACT OR DILUTION ERROR OF ANTICOAGULANT AT THE TIME OF SAMPLING. THE APTT SHOULD NOT BE USED TO MONITOR UNFRACTIONATED HEPARIN THERAPY, THIS LABORATORY NO LONGER HAS AN ESTABLISHED THERAPEUTIC RANGE BASED ON THE APTT. IT IS RECOMMENDED THAT THE UFH - HEPARIN ASSAY (ANTI-XA ACTIVITY) BE USED FOR THIS PURPOSE. Performed By: #### 1 0070, 27042, 94191 #### [facility] [address] [place] [address], [facility] BASIC METABOLIC PANELon 05- Calcium [Mass/Vol] 8.3 mg/dL Low 8.6-10.3 [facility] Comment on above: Order Comment: No: D o not add to previous draw Performed By: #### 1 0, 03328, 52142 #### [facility] [address] [place] [id number], [facility] Chloride [Moles/Vol] 108 mmol/L High 98-107 [facility] Comment on above: Order Comment: No: D o not add to previous draw Performed By: #### 1 0, 54548, 63013 #### [facility] [address] [place] [address], [place] CO2 [Moles/Vol] 23 mmol/L Normal 21-31 [facility] Comment on above: Order Comment: No: D o not add to previous draw Performed By: #### 1 0, 74624, 38773 #### [facility] [address] [place] [address], [place] Creatinine [Mass/Vol] 0.48 mg/dL Low 0.60-1.20 [facility] Comment on above: Order Comment: No: D o not add to previous draw Performed By: #### 1 0, 77457, 72575 #### [facility] [address] [place] [address], [place] GFR/1.73 sq M.predicted among blacks MDRD (S/P/Bld) [Vol rate/Area] mL/min/{1.73_m2} Normal >60 [facility] Comment on above: Order Comment: No: D o not add to previous draw Performed By: #### 1 0070, 12147, 45698 #### [facility] [address] [place] [address], [place] GFR/1.73 sq M.predicted among non-blacks MDRD (S/P/Bld) [Vol rate/Area] mL/min/{1.73_m2} Normal >60 [facility] Comment on above: Order Comment: No: D o not add to previous draw Performed By: #### 1 0070, 16545, 71970 #### [facility] [address] [place] [address], [place] Glucose [Mass/Vol] 94 mg/dL Normal 70-100 [facility] Comment on above: Order Comment: No: D o not add to previous draw Performed By: #### 1 0, 16430, 85761 #### [facility] [address] [place] [address], [place] Potassium [Moles/Vol] 3.9 mmol/L Normal 3.5-5.1 [facility] Comment on above: Order Comment: No: D o not add to previous draw Performed By: #### 1 0, 64796, 46587 #### [facility] [address] [place] [address], [place] Sodium [Moles/Vol] 138 mmol/L Normal 136-145 [facility] Comment on above: Order Comment: No: D o not add to previous draw Performed By: #### 1 0070, 56428, 69264 #### [facility] [address] [place] [address], [place] Urea nitrogen [Mass/Vol] 9 mg/dL Normal 7-25 The [facility] Comment on above: Order Comment: No: D o not add to previous draw Performed By: #### 1 0070, 59649, 13539 #### [facility] [address] [facility] [place] [address], [facility] CBC W/DIFFon 11-05-2021 ABS IMM GRANS 0.0 10*3/uL Normal 0.0-0.2 The [facility] Comment on above: Order Comment: RLQ P ERIHEPATIC FLUID DRAINAGE Performed By: #### 3 0310 #### [facility] [address] [place] [address], [facility] ABS NEUTROPHILS 4.5 10*3/uL Normal 1.6-7.6 The [facility] Comment on above: Order Comment: RLQ P ERIHEPATIC FLUID DRAINAGE Performed By: #### 3 0310 #### [facility] [address] [facility] [place] [address], [facility] Basophils (Bld) [#/Vol] 0.0 10*3/uL Normal 0.0-0.2 The [facility] Comment on above: Order Comment: RLQ P ERIHEPATIC FLUID DRAINAGE Performed By: #### 3 0310 #### [facility] [address] [place] [address], [facility] Basophils/100 WBC (Bld) 0.3 % Normal 0.0-1.0 The [facility] Comment on above: Order Comment: RLQ P ERIHEPATIC FLUID DRAINAGE Performed By: #### 3 0310 #### [facility] [address] [facility] [place] [address], [facility] Eosinophils (Bld) [#/Vol] 0.1 10*3/uL Normal 0.0-0.5 The [facility] Comment on above: Order Comment: RLQ P ERIHEPATIC FLUID DRAINAGE Performed By: #### 3 0310 #### [facility] [address] [place] [address], [facility] Eosinophils/100 WBC (Bld) 1.4 % Normal 0.0-6.0 The [facility] Comment on above: Order Comment: RLQ P ERIHEPATIC FLUID DRAINAGE Performed By: #### 3 0310 #### [facility] [address] [place] [address], [facility] Erythrocyte distribution width (RBC) [Ratio] 14.0 % Normal 11.5-15.0 The [facility] Comment on above: Order Comment: RLQ P ERIHEPATIC FLUID DRAINAGE Performed By: #### 3 0310 #### [facility] [address] [place] [address], [facility] Hematocrit (Bld) [Volume fraction] 27.2 % Low 36.0-45.0 The [facility] Comment on above: Order Comment: RLQ P ERIHEPATIC FLUID DRAINAGE Performed By: #### 3 0310 #### [facility] [address] [place] [address], [facility] Hemoglobin (Bld) [Mass/Vol] 8.5 g/dL Low 12.0-15.0 The [facility] Comment on above: Order Comment: RLQ P ERIHEPATIC FLUID DRAINAGE Performed By: #### 3 0310 #### [facility] [address] [facility] [place] [address], [facility] IMMATURE GRANS 0.5 % Normal 0.0-1.0 The [facility] Comment on above: Order Comment: RLQ P ERIHEPATIC FLUID DRAINAGE Performed By: #### 3 0310 #### [facility] [address] [place] [address], [facility] Lymphocytes (Bld) [#/Vol] 1.3 10*3/uL Normal 1.2-4.0 The [facility] Comment on above: Order Comment: RLQ P ERIHEPATIC FLUID DRAINAGE Performed By: #### 3 0310 #### [facility] [address] [place] [address], [facility] Lymphocytes/100 WBC (Bld) 20.5 % Normal 20.0-45.0 The [facility] Comment on above: Order Comment: RLQ P ERIHEPATIC FLUID DRAINAGE Performed By: #### 3 0310 #### [facility] [address] [place] [address], [facility] MCH (RBC) [Entitic mass] 29.7 pg Normal 27.0-33.0 The [facility] Comment on above: Order Comment: RLQ P ERIHEPATIC FLUID DRAINAGE Performed By: #### 3 0310 #### [facility] [address] [place] [id number], [facility] MCHC (RBC) [Mass/Vol] 31.3 g/dL Low 32.0-35.0 The [facility] Comment on above: Order Comment: RLQ P ERIHEPATIC FLUID DRAINAGE Performed By: #### 3 0310 #### [facility] [address] [place] [address], [facility] MCV (RBC) [Entitic vol] 95.1 fL Normal 82.0-98.0 The [facility] Comment on above: Order Comment: RLQ P ERIHEPATIC FLUID DRAINAGE Performed By: #### 3 0310 #### [facility] [address] [place] [address], [facility] Monocytes (Bld) [#/Vol] 0.5 10*3/uL Normal 0.1-1.0 The [facility] Comment on above: Order Comment: RLQ P ERIHEPATIC FLUID DRAINAGE Performed By: #### 3 0310 #### [facility] [address] [place] [address], [facility] MONOS 7.3 % Normal 5.0-12.0 The [facility] Comment on above: Order Comment: RLQ P ERIHEPATIC FLUID DRAINAGE Performed By: #### 3 0310 #### [facility] [address] [place] [id number], [facility] Neutrophils/100 WBC (Bld) 70.0 % Normal 40.0-72.0 The [facility] Comment on above: Order Comment: RLQ P ERIHEPATIC FLUID DRAINAGE Performed By: #### 3 0310 #### [facility] [address] [facility] [place] [address], [facility] Nucleated RBC/100 WBC (Bld) [Ratio] 0 % Normal 0-0 The [facility] Comment on above: Order Comment: RLQ P ERIHEPATIC FLUID DRAINAGE Performed By: #### 3 0310 #### [facility] [address] [facility] [place] [address], [facility] PLAT CNT 497 10*3/uL High 150-400 The [facility] Comment on above: Order Comment: RLQ P ERIHEPATIC FLUID DRAINAGE Performed By: #### 3 0310 #### [facility] [address] [facility] [place] [address], [facility] RBC (Bld) [#/Vol] 2.86 10*6/uL Low 3.80-5.00 The [facility] Comment on above: Order Comment: RLQ P ERIHEPATIC FLUID DRAINAGE Performed By: #### 3 0310 #### [facility] [address] [facility] [place] [place] [address], [facility] WBC (Bld) [#/Vol] 6.44 10*3/uL Normal 4.00-10.60 The [facility] Comment on above: Order Comment: RLQ P ERIHEPATIC FLUID DRAINAGE Performed By: #### 3 0310 #### [address] DRAINAGE PERITONEALon CT DRAINAGE PERITONEAL [facility] Department of Radiology [address] [place] [id number] Patient Name: JULIA QUISPE: 1970 Sex: F Age: Race: White Pt. Location: [address] [place] [address] Patient Status: I Ordered Date: 11/05/2021 6:55:00 AM Completed Date: 11/05/2021 12:41 PM Requesting Provider: NAKUL TEE Attending Provider: JESSICA FREITAS Report Copy To: Signs & Symptoms: Abdominal Pain(specify) History: See Comments Comments: Other, liver abscess posterior segment right lobe Exam: CT DRAINAGE PERITONEAL CT DRAINAGE PERITONEAL 11/05/2021 12:41 PM CLINICAL INDICATIONS: Abdominal Pain(specify) TECHNOLOGIST COMMENTS: Kate-hepatic fluid collection. 10 F drain placement. QUESTION FOR RADIOLOGISTS: Other, liver abscess posterior segment right lobe PROTOCOL: All CT scans at this facility use dose modulation, iterative reconstruction, and/or weight based dosing when appropriate to reduce radiation dose to as low as reasonably achievable. INFORMED CONSENT: Reason for procedure was discussed with the patient. The procedure expectations risks benefits options and alternatives were discussed. All the questions were answered. The patient understood that results cannot be guaranteed. The procedure is indicated and risks are acceptable. Consent was obtained. Timeout: [place] protocol timeout verification performed. MEDICATIONS: 2 mg of Valium and 200 micrograms of Fentanyl were administered for conscious sedation. Vital signs were continuously monitored by nursing staff throughout the procedure. Performing physician:Dr. Escamilla and Dr. Puentes, attending physician was present for all critical portions of the procedure. Start time: 1200 End time: 1220 Total physician intra-service time of sedation: 20 minutes Samples obtained:4 mL of dark red/brown fluid aspirated. PROCEDURE: Estimated blood loss: 5 mL. IMPRESSION: CT guidance was utilized for procedure. The patient was brought to the CT preprocedure area and verbal and written consent was obtained. The patient was brought into the CT suite and positioned supine on the CT table. A CT scan is obtained site localization. The area was then marked, cleaned, and sterilely draped. 1% lidocaine was used as local anesthetic. Under CT guidance, a needle catheter was placed within the inferior liver lesion. Aspiration was attempted at this time and was unsuccessful. A 10 Luxembourger pigtail catheter was then placed and placement was confirmed by CT. 4 mL of dark red/brown fluid was aspirated at this time. The catheter was then sutured to the skin and a MICHEAL drain was placed for continuous drainage. A sterile dressing was then placed over the procedure site and around the previously placed drain in the lower abdomen. The patient tolerated the procedure well. The patient will remain in radiology post procedure area 30 minutes for observation and then will be released back to the prior service. Successful CT-guided abdominal drain placement for presumed inferior right hepatic lobe abscess. Approved by:Jose Andersen11/05/2021 1:21 PM. I, Caroline Escamilla,have reviewed the image(s) and agree with the findings in this report. Electronically signed: Caroline Escamilla. Transcribed by: [email or web address], User Resident: JOSE PUENTES Electronically Signed by: CAROLINE ESCAMILLA @ 11/05/2021 01:45 PM I personally read this/these film(s) with this resident Normal The [facility] Comment on above: Order Comment: Other , liver abscess posterior segment right lobe MAGNESIUM BLOODon 11-05-2021 Magnesium [Mass/Vol] 2.0 mg/dL Normal 1.9-2.7 The [facility] Comment on above: Order Comment: No: D o not add to previous draw Performed By: #### 1 0070, 95152, 64766 #### [facility] [address] [facility] [place] [address], [facility] PHOSPHORUS BLOODon Phosphate [Mass/Vol] 3.7 mg/dL Normal 2.5-5.0 The [facility] Comment on above: Order Comment: No: D o not add to previous draw Performed By: #### 1 0070, 31915, 83263 #### [facility] [address] [facility] [place] [address], [facility] POC SARS COV2 ANTIGEN NEGATI VEon 11-05-2021 POC SARS COV2 ANTIGEN NEG Negative Normal NEGATIVE The [facility] Comment on above: Result Comment: Nega tive results should be treated as presumptive and confirmation with a molecular assay, if necessary, for patient management, may be performed. Negative results do not rule out SARS-CoV-2 infection and not should be used as the sole basis for treatment or patient management decisions, including infection control decisions. Negative results should be considered in the context of a patient's recent exposures, history, and the presence of clinical signs and symptoms consistent with COVID-19. The Clarity COVID-19 Antigen Rapid Test Cassette is a rapid chromatographic immunoassay intended for the qualitative detection of the nucleocapsid protein antigen from SARS-CoV-2 in direct nasopharyngeal swab (FILE CONVERSION OPERATOR) specimens from individuals who are suspected of COVID-19 by their healthcare provider within the first six days of symptom onset. Testing is limited to laboratories certified under the Clinical Laboratory Improvement Amendments of 1988 (CLIA), 42 U.S.C. ???263a, that meet the requirements to perform moderate complexity, high complexity, or waived tests. This test is authorized for use at the Point of Care (POC), i.e., in patient care settings operating under a CLIA Certificate of Waiver, Certificate of Compliance, or Certificate of Accreditation. Performed By: #### 3 2044 #### [facility] [address] [facility]. [address] PROTHROMBIN TIMEon INR Coag (PPP) [Relative time] 1.14 {INR} Normal 0.91-1.16 The [facility] Comment on above: Order Comment: No: D o not add to previous draw Result Comment: ACCC P RECOMMENDED INR FOR WARFARIN THERAPY ------ ------- CONDITION INR PROPHYLAXIS OF VENOUS THROMBOSIS 2-3 (HIGH-RISK SURGERY) TREATMENT OF VENOUS THROMBOSIS 2-3 TREATMENT OF PULMONARY EMBOLISM 2-3 PREVENTION OF SYSTEMIC EMBOLISM: 2-3 ACUTE MYOCARDIAL INFARCTION TISSUE HEART VALVES VALVULAR HEART DISEASE ATRIAL FIBRILLATION RECURRENT SYSTEMIC EMBOLISM MECHANICAL HEART VALVE 2.5-3.5 FROM: ORAL ANTICOAGULANTS. MECHANISM OF ACTION, CLINICAL EFFECTIVENESS, AND OPTIMAL THERAPEUTIC RANGE. CHEST 1995;108:231S-246S. Performed By: #### 1 0070, 20134, 31509 #### [address] PT Coag (PPP) [Time] 14.6 s Normal 12.3-14.8 The [facility] Comment on above: Order Comment: No: D o not add to previous draw Result Comment: ALL RESULTS MUST BE INTERPRETED WITH RESPECT TO BLOOD DRAWING ARTIFACT OR DILUTION ERROR OF ANTICOAGULANT AT THE TIME OF SAMPLING. Performed By: #### 1 0070, 43635, 10754 #### [address] US GALLBLADDERon 11-05-2021 US GALLBLADDER [facility] Department of Radiology [address] [place] [id number] Patient Name: JULIA QUISPE : 1970 Sex: F Age: Race: White Pt. Location: [id number] Patient Status: I Ordered Date: 11/05/2021 11:20:00 AM Completed Date: 11/05/2021 01:47 PM Requesting Provider: BRIAN HENDERSON Attending Provider: JESSICA FREITAS Report Copy To: Signs & Symptoms: Nausea/Vomiting History: See Comments Comments: Enlargement Exam: US GALLBLADDER US GALLBLADDER 11/05/2021 1:47 PM SIGNS AND SYMPTOMS: Nausea/Vomiting TECHNOLOGIST COMMENTS: QUESTION FOR THE RADIOLOGIST: Enlargement TECHNIQUE: Limited abdominal ultrasound. COMPARISON: CT abdomen November 04, 2021. FINDINGS: The gallbladder appears normal in its size and shape and has a normal appearing wall. Echogenic material is noted dependently within the gallbladder. The bile duct measured 7 mm. Hercules's sign was said to be negative. The pancreatic duct is subtly prominent but unchanged from the prior day's CT. IMPRESSION: Gallbladder sludge. Electronically signed: Vincent Raphael. Transcribed by: [email or web address], User Resident: Electronically Signed by: VINCENT RAPHAEL @ 11/05/2021 02:10 PM Normal The [facility] Comment on above: Order Comment: Enlar gement CBC W/DIFFon 11-04-2021 ABS IMM GRANS 0.0 10*3/uL Normal 0.0-0.2 [facility] Comment on above: Performed By: #### 8 5499 #### [facility] [address] [facility] [place] [address], [facility] ABS NEUTROPHILS 6.0 10*3/uL Normal 1.6-7.6 The [facility] Comment on above: Performed By: #### 8 5499 #### [facility] [address] [place] [address], [facility] Basophils (Bld) [#/Vol] 0.0 10*3/uL Normal 0.0-0.2 The [facility] Comment on above: Performed By: #### 8 5499 #### [facility] [address] [place] [address], [facility] Basophils/100 WBC (Bld) 0.4 % Normal 0.0-1.0 The [facility] Comment on above: Performed By: #### 8 5499 #### [facility] [address] [place] [address], [facility] Eosinophils (Bld) [#/Vol] 0.1 10*3/uL Normal 0.0-0.5 The [facility] Comment on above: Performed By: #### 8 5499 #### [facility] [address] [place] [address], [facility] Eosinophils/100 WBC (Bld) 1.2 % Normal 0.0-6.0 [facility] Comment on above: Performed By: #### 8 5499 #### [facility] [address] [facility] Erythrocyte distribution width (RBC) [Ratio] 13.9 % Normal 11.5-15.0 [facility] Comment on above: Performed By: #### 8 5499 #### [facility] [address] [facility] Hematocrit (Bld) [Volume fraction] 30.8 % Low 36.0-45.0 [facility] Comment on above: Performed By: #### 8 5499 #### [facility] [address] [facility] [place] [address], [facility] Hemoglobin (Bld) [Mass/Vol] 9.8 g/dL Low 12.0-15.0 [facility] Comment on above: Performed By: #### 8 5499 #### [facility] [address] [facility] [place] [address], [facility] IMMATURE GRANS 0.4 % Normal 0.0-1.0 [facility] Comment on above: Performed By: #### 8 5499 #### [facility] [address] [place] [address], [facility] Lymphocytes (Bld) [#/Vol] 1.7 10*3/uL Normal 1.2-4.0 [facility] Comment on above: Performed By: #### 8 5499 #### [facility] [address] [place] [address], [facility] Lymphocytes/100 WBC (Bld) 20.3 % Normal 20.0-45.0 [facility] Comment on above: Performed By: #### 8 5499 #### [facility] [address] [place] [address], [facility] MCH (RBC) [Entitic mass] 30.1 pg Normal 27.0-33.0 [facility] Comment on above: Performed By: #### 8 5499 #### [facility] [address] [place] [address], [facility] MCHC (RBC) [Mass/Vol] 31.8 g/dL Low 32.0-35.0 [facility] Comment on above: Performed By: #### 8 5499 #### [facility] [address] [place] [address], [facility] MCV (RBC) [Entitic vol] 94.5 fL Normal 82.0-98.0 [facility] Comment on above: Performed By: #### 8 5499 #### [facility] [address] [facility] [place] [address], [facility] Monocytes (Bld) [#/Vol] 0.6 10*3/uL Normal 0.1-1.0 [facility] Comment on above: Performed By: #### 8 5499 #### [facility] [address] [facility] [place] [address], [facility] MONOS 6.6 % Normal 5.0-12.0 [facility] Comment on above: Performed By: #### 8 5499 #### [facility] [address] [place] [address], [facility] Neutrophils/100 WBC (Bld) 71.1 % Normal 40.0-72.0 [facility] Comment on above: Performed By: #### 8 5499 #### [facility] [address] [facility] [place] [address], [facility] Nucleated RBC/100 WBC (Bld) [Ratio] 0 % Normal 0-0 [facility] Comment on above: Performed By: #### 8 5499 #### [facility] [address] [place] [address], [facility] PLAT CNT 611 10*3/uL High 150-400 [facility] Comment on above: Performed By: #### 8 5499 #### [facility] [address] [place] [address], [facility] RBC (Bld) [#/Vol] 3.26 10*6/uL Low 3.80-5.00 [facility] Comment on above: Performed By: #### 8 5499 #### [facility] [address] WBC (Bld) [#/Vol] 8.43 10*3/uL Normal 4.00-10.60 The [facility] Comment on above: Performed By: #### 8 5499 #### [facility] [address] COMP METABOLIC PANELon 11-04 Albumin [Mass/Vol] 3.7 g/dL Normal 3.5-5.7 [facility] Comment on above: Performed By: #### 1 0070, 91891, 78297 #### [facility] [address] [facility] [place] [address], [facility] ALKALINE PHOSPH 131 IU/L High 34-104 [facility] Comment on above: Performed By: #### 1 0, 24003, 18763 #### [facility] [address] [facility] [address] ALT [Catalytic activity/Vol] 99 U/L High 7-52 [facility] Comment on above: Performed By: #### 1 0, 79854, 51444 #### [facility] [address] [place] [address], [place] AST [Catalytic activity/Vol] 38 U/L Normal 13-39 [facility] Comment on above: Performed By: #### 1 0, 46066, 55837 #### [facility] [address] [place] [address], [place] Bilirubin [Mass/Vol] 0.7 mg/dL Normal 0.3-1.0 [facility] Comment on above: Performed By: #### 1 0, 18288, 35549 #### [facility] [address] [place] [address], [place] Calcium [Mass/Vol] 9.2 mg/dL Normal 8.6-10.3 [facility] Comment on above: Performed By: #### 1 69, 94510, 80239 #### [facility] [address] [place] [address], [place] Chloride [Moles/Vol] 103 mmol/L Normal 98-107 [facility] Comment on above: Performed By: #### 1 69, 13970, 73194 #### [facility] [address] [place] [address], [place] CO2 [Moles/Vol] 27 mmol/L Normal 21-31 [facility] Comment on above: Performed By: #### 1 69, 10050, 37099 #### [facility] [address] [place] [address], [place] Creatinine [Mass/Vol] 0.60 mg/dL Normal 0.60-1.20 [facility] Comment on above: Performed By: #### 1 69, 34063, 07963 #### [facility] [address] [place] [address], [place] GFR/1.73 sq M.predicted among blacks MDRD (S/P/Bld) [Vol rate/Area] mL/min/{1.73_m2} Normal >60 [facility] Comment on above: Performed By: #### 1 0, 65431, 28341 #### [facility] [address] [place] [address], [place] GFR/1.73 sq M.predicted among non-blacks MDRD (S/P/Bld) [Vol rate/Area] mL/min/{1.73_m2} Normal >60 [facility] Comment on above: Performed By: #### 1 0, , 55181 #### [facility] [address] [place] [address], [place] Glucose [Mass/Vol] 93 mg/dL Normal 70-100 The [facility] Comment on above: Performed By: #### 1 69, , 99707 #### [facility] [address] [place] [address], [place] Potassium [Moles/Vol] 4.2 mmol/L Normal 3.5-5.1 [facility] Comment on above: Performed By: #### 1 69, 66853, 60901 #### [facility] [address] [place] [address], [place] Protein [Mass/Vol] 6.6 g/dL Normal 6.0-8.3 [facility] Comment on above: Performed By: #### 1 69, 68111, 23110 #### [facility] [address] [place] [address], [place] Sodium [Moles/Vol] 139 mmol/L Normal 136-145 [facility] Comment on above: Performed By: #### 1 69, 17530, 23433 #### [facility] [address] [place] [address], [place] Urea nitrogen [Mass/Vol] 12 mg/dL Normal 7-25 [facility] Comment on above: Performed By: #### 1 0070, 46617, 11217 #### [address] ABDOM[facility] ABDOMEN AND PELVIS W IV CONTRAST [facility] Department of Radiology [address] [place] [id number] Patient Name: JULIA QUISPE : 1970 Sex: F Age: Race: White Pt. Location: [facility] Patient Status: E Ordered Date: 11/04/2021 3:50:00 PM Completed Date: 11/04/2021 04:47 PM Requesting Provider: MOIZ DURHAM Attending Provider: BINDU CANTU Report Copy To: Signs & Symptoms: Abdominal Pain(specify) History: See Comments Comments: Retroperitoneal Mass/Abscess, post-appendectomy with MICHEAL drain Exam: CT ABDOMEN AND PELVIS W IV CONTRAST STUDY: ABDOMEN AND PELVIS CT WITH CONTRAST CLINICAL HISTORY: Abdominal Pain(specify) CT ABDOMEN AND PELVIS W IV CONTRAST COMPARISON: October 24 CT abdomen and pelvis TECHNIQUE: CT abdomen and pelvis was performed utilizing 5 mm axial reconstructions following the uneventful administration non ionic intravenous contrast. Coronal and sagittal reformatted images as well as delayed excretory phase images were obtained and reviewed. Automated exposure control was utilized. FINDINGS: Her cardial effusion similar prior study Lung bases show no acute findings No free air at this time There is been placement of a pigtail drainage catheter within the right lower quadrant and the fluid collection within that region on the prior study has resolved Bladder unremarkable No evidence for small bowel obstruction There continues to be some fluid surrounding the gallbladder Within the right lobe the liver there is a fluid collection with gas likely an abscess which appears smaller than the prior study measuring approximately 43 mm Spleen pancreas adrenal glands and kidneys show no acute findings There are a few small cystic foci within the liver within the left lobe which may represent cysts and are unchanged No evidence for small bowel obstruction IMPRESSION: Right lower quadrant abscess has resolved following placement of drainage catheter. There is a liver abscess posterior segment right lobe which is smaller than prior study. There is some pericholecystic fluid which is nonspecific. If you have clinical concern for acute cholecystitis a gallbladder ultrasound could be performed to your discretion. All CT scans at this facility use dose modulation, iterative reconstruction, and/or weight based dosing when appropriate to reduce radiation dose to as low as reasonably achievable. Electronically signed: Johann Saenz. Transcribed by: [email or web address], User Resident: Electronically Signed by: JOHANN SAENZ @ 11/04/2021 06:21 PM Normal [facility] Comment on above: Order Comment: Retro peritoneal Mass/Abscess, post-appendectomy with MICHEAL drain LACTATE WITH REFLEXon 2021 Lactate [Moles/Vol] 1.3 mmol/L Normal .5-2.2 [facility] Comment on above: Performed By: #### 1 0070, 52228, 69932 #### [facility] [address] [place] [address], [facility] LIPASE BLOODon 11-04-2021 LIPASE 265 Units/L High 11-82 [facility] Comment on above: Performed By: #### 1 0070, 76597, 40989 #### [facility] [address] [place] [address], [facility] BASIC METABOLIC PANELon 05-0 Calcium [Mass/Vol] 8.6 mg/dL Normal 8.6-10.3 The [facility] Comment on above: Order Comment: No: D o not add to previous draw Performed By: #### 1 0070, 53150, 38654 #### [facility] [address] [place] [address], [place] Chloride [Moles/Vol] 103 mmol/L Normal 98-107 [facility] Comment on above: Order Comment: No: D o not add to previous draw Performed By: #### 1 0070, 65539, 70292 #### [facility] [address] [place] [address], [place] CO2 [Moles/Vol] 28 mmol/L Normal 21-31 The [facility] Comment on above: Order Comment: No: D o not add to previous draw Performed By: #### 1 0070, 66285, 52287 #### [facility] [address] [place] [address], [place] Creatinine [Mass/Vol] 0.61 mg/dL Normal 0.60-1.20 [facility] Comment on above: Order Comment: No: D o not add to previous draw Performed By: #### 1 0, 98524, 62828 #### [facility] [address] [place] [address], [place] GFR/1.73 sq M.predicted among blacks MDRD (S/P/Bld) [Vol rate/Area] mL/min/{1.73_m2} Normal >60 [facility] Comment on above: Order Comment: No: D o not add to previous draw Performed By: #### 1 0, 12655, 77294 #### [facility] [address] [place] [address], [place] GFR/1.73 sq M.predicted among non-blacks MDRD (S/P/Bld) [Vol rate/Area] mL/min/{1.73_m2} Normal >60 [facility] Comment on above: Order Comment: No: D o not add to previous draw Performed By: #### 1 0070, 93895, 86814 #### [facility] [address] [place] [address], [place] Glucose [Mass/Vol] 101 mg/dL High 70-100 [facility] Comment on above: Order Comment: No: D o not add to previous draw Performed By: #### 1 0, 39768, 20997 #### [facility] [address] [place] [address], [facility] Potassium [Moles/Vol] 4.0 mmol/L Normal 3.5-5.1 [facility] Comment on above: Order Comment: No: D o not add to previous draw Performed By: #### 1 0, 02647, 18321 #### [facility] [address] [place] [address], [place] Sodium [Moles/Vol] 136 mmol/L Normal 136-145 [facility] Comment on above: Order Comment: No: D o not add to previous draw Performed By: #### 1 0, 50663, 97335 #### [facility] [address] [place] [id number], [facility] Urea nitrogen [Mass/Vol] 11 mg/dL Normal 7-25 [facility] Comment on above: Order Comment: No: D o not add to previous draw Performed By: #### 1 0, 02960, 77544 #### [facility] [address] [place] [id number], [facility] CBC COMPLETE BLOOD COUNTon 0 - Erythrocyte distribution width (RBC) [Ratio] 14.7 % Normal 11.5-15.0 [facility] Comment on above: Order Comment: RLQ P ERIHEPATIC FLUID DRAINAGE Performed By: #### 3 0310 #### [facility] [address] [place] [id number], [facility] Hematocrit (Bld) [Volume fraction] 25.3 % Low 36.0-45.0 [facility] Comment on above: Order Comment: RLQ P ERIHEPATIC FLUID DRAINAGE Performed By: #### 3 0310 #### [facility] [address] [place] [address], [facility] Hemoglobin (Bld) [Mass/Vol] 8.0 g/dL Low 12.0-15.0 [facility] Comment on above: Order Comment: RLQ P ERIHEPATIC FLUID DRAINAGE Performed By: #### 3 0310 #### [facility] [address] [place] [id number], [facility] MCH (RBC) [Entitic mass] 30.2 pg Normal 27.0-33.0 [facility] Comment on above: Order Comment: RLQ P ERIHEPATIC FLUID DRAINAGE Performed By: #### 3 0310 #### [facility] [address] [place] [address], [facility] MCHC (RBC) [Mass/Vol] 31.6 g/dL Low 32.0-35.0 [facility] Comment on above: Order Comment: RLQ P ERIHEPATIC FLUID DRAINAGE Performed By: #### 3 0310 #### [facility] [address] [place] [address], [facility] MCV (RBC) [Entitic vol] 95.5 fL Normal 82.0-98.0 [facility] Comment on above: Order Comment: RLQ P ERIHEPATIC FLUID DRAINAGE Performed By: #### 3 0310 #### [facility] [address] [place] [address], [facility] Nucleated RBC/100 WBC (Bld) [Ratio] 0 % Normal 0-0 [facility] Comment on above: Order Comment: RLQ P ERIHEPATIC FLUID DRAINAGE Performed By: #### 3 0310 #### [facility] [address] [place] [address], [facility] PLAT CNT 603 10*3/uL High 150-400 [facility] Comment on above: Order Comment: RLQ P ERIHEPATIC FLUID DRAINAGE Performed By: #### 3 0310 #### [facility] [address] [place] [address], [facility] RBC (Bld) [#/Vol] 2.65 10*6/uL Low 3.80-5.00 [facility] Comment on above: Order Comment: RLQ P ERIHEPATIC FLUID DRAINAGE Performed By: #### 3 0310 #### [facility] [address] [place] [address], [facility] WBC (Bld) [#/Vol] 8.36 10*3/uL Normal 4.00-10.60 [facility] Comment on above: Order Comment: RLQ P ERIHEPATIC FLUID DRAINAGE Performed By: #### 3 0310 #### [facility] [address] [place] [address], [facility] MAGNESIUM BLOODon 10-28-2021 Magnesium [Mass/Vol] 2.0 mg/dL Normal 1.9-2.7 [facility] Comment on above: Order Comment: No: D o not add to previous draw Performed By: #### 1 0070, 45599, 22806 #### [facility] [address] [place] [address], [facility] PHOSPHORUS BLOODon Phosphate [Mass/Vol] 3.5 mg/dL Normal 2.5-5.0 [facility] Comment on above: Order Comment: No: D o not add to previous draw Performed By: #### 1 0070, 20257, 27432 #### [facility] [address] [place] [address], [facility] BASIC METABOLIC PANELon 05-0 Calcium [Mass/Vol] 8.6 mg/dL Normal 8.6-10.3 [facility] Comment on above: Order Comment: No: D o not add to previous draw Performed By: #### 1 0070, 70319, 91187 ####[facility] [place] [address], [facility] Chloride [Moles/Vol] 102 mmol/L Normal 98-107 [facility] Comment on above: Order Comment: No: D o not add to previous draw Performed By: #### 1 0, 17863, 37867 ####[facility] [place] [address], [facility] CO2 [Moles/Vol] 28 mmol/L Normal 21-31 [facility] Comment on above: Order Comment: No: D o not add to previous draw Performed By: #### 1 0, 45877, 12278 ####[facility] [place] [address], [facility] Creatinine [Mass/Vol] 0.52 mg/dL Low 0.60-1.20 [facility] Comment on above: Order Comment: No: D o not add to previous draw Performed By: #### 1 0, 82452, 64257 ####[facility] [place] [address], [facility] GFR/1.73 sq M.predicted among blacks MDRD (S/P/Bld) [Vol rate/Area] mL/min/{1.73_m2} Normal >60 [facility] Comment on above: Order Comment: No: D o not add to previous draw Performed By: #### 1 0, 93088, 11855 ####[facility] [place] [address], [facility] GFR/1.73 sq M.predicted among non-blacks MDRD (S/P/Bld) [Vol rate/Area] mL/min/{1.73_m2} Normal >60 [facility] Comment on above: Order Comment: No: D o not add to previous draw Performed By: #### 1 0, 66728, 67625 ####[facility] [place] [address], [facility] Glucose [Mass/Vol] 95 mg/dL Normal 70-100 [facility] Comment on above: Order Comment: No: D o not add to previous draw Performed By: #### 1 0, 65833, 81284 ####[facility] [place] [address], [facility] Potassium [Moles/Vol] 4.1 mmol/L Normal 3.5-5.1 [facility] Comment on above: Order Comment: No: D o not add to previous draw Performed By: #### 1 0070, 56479, 25272 ####[facility] [address], [facility] Sodium [Moles/Vol] 135 mmol/L Low 136-145 [facility] Comment on above: Order Comment: No: D o not add to previous draw Performed By: #### 1 0070, 72771, 06143 ####[facility] [place] [address], [facility] Urea nitrogen [Mass/Vol] 11 mg/dL Normal 7-25 [facility] Comment on above: Order Comment: No: D o not add to previous draw Performed By: #### 1 0070, 63028, 15896 ####[facility] [place] [address], [facility] CBC COMPLETE BLOOD COUNTon 0 - Erythrocyte distribution width (RBC) [Ratio] 14.6 % Normal 11.5-15.0 [facility] Comment on above: Order Comment: RLQ P ERIHEPATIC FLUID DRAINAGE Performed By: #### 3 0310 #### [facility] [address] [place] [address], [facility] Hematocrit (Bld) [Volume fraction] 25.2 % Low 36.0-45.0 [facility] Comment on above: Order Comment: RLQ P ERIHEPATIC FLUID DRAINAGE Performed By: #### 3 0310 #### [facility] [address] [place] [id number], [facility] Hemoglobin (Bld) [Mass/Vol] 7.9 g/dL Low 12.0-15.0 [facility] Comment on above: Order Comment: RLQ P ERIHEPATIC FLUID DRAINAGE Performed By: #### 3 0310 #### [facility] [address] [place] [address], [facility] MCH (RBC) [Entitic mass] 30.2 pg Normal 27.0-33.0 [facility] Comment on above: Order Comment: RLQ P ERIHEPATIC FLUID DRAINAGE Performed By: #### 3 0310 #### [facility] [address] [place] [id number], [facility] MCHC (RBC) [Mass/Vol] 31.3 g/dL Low 32.0-35.0 [facility] Comment on above: Order Comment: RLQ P ERIHEPATIC FLUID DRAINAGE Performed By: #### 3 0310 #### [facility] [address] [place] [id number], [facility] MCV (RBC) [Entitic vol] 96.2 fL Normal 82.0-98.0 [facility] Comment on above: Order Comment: RLQ P ERIHEPATIC FLUID DRAINAGE Performed By: #### 3 0310 #### [facility] [address] [place] [address], [facility] Nucleated RBC/100 WBC (Bld) [Ratio] 0 % Normal 0-0 [facility] Comment on above: Order Comment: RLQ P ERIHEPATIC FLUID DRAINAGE Performed By: #### 3 0310 #### [facility] [address] [place] [id number], [facility] PLAT CNT 660 10*3/uL High 150-400 [facility] Comment on above: Order Comment: RLQ P ERIHEPATIC FLUID DRAINAGE Performed By: #### 3 0310 #### [facility] [address] [place] [address], [facility] RBC (Bld) [#/Vol] 2.62 10*6/uL Low 3.80-5.00 [facility] Comment on above: Order Comment: RLQ P ERIHEPATIC FLUID DRAINAGE Performed By: #### 3 0310 #### [facility] [address] [place] [address], [facility] WBC (Bld) [#/Vol] 8.42 10*3/uL Normal 4.00-10.60 [facility] Comment on above: Order Comment: RLQ P ERIHEPATIC FLUID DRAINAGE Performed By: #### 3 0310 #### [facility] [address] [place] [address], [facility] MAGNESIUM BLOODon 10-27-2021 Magnesium [Mass/Vol] 2.2 mg/dL Normal 1.9-2.7 [facility] Comment on above: Order Comment: No: D o not add to previous draw Performed By: #### 1 0070, 85348, 65134 ####[facility] [place] [address], [facility] PHOSPHORUS BLOODon Phosphate [Mass/Vol] 3.4 mg/dL Normal 2.5-5.0 [facility] Comment on above: Order Comment: No: D o not add to previous draw Performed By: #### 1 0070, 64869, 15894 #### [facility] [address] [place] [address], [facility] BASIC METABOLIC PANELon 05-0 Calcium [Mass/Vol] 8.4 mg/dL Low 8.6-10.3 [facility] Comment on above: Order Comment: No: D o not add to previous draw Performed By: #### 8 2039 #### [facility] [address] [place] [address], [place] Chloride [Moles/Vol] 103 mmol/L Normal 98-107 [facility] Comment on above: Order Comment: No: D o not add to previous draw Performed By: #### 8 5499 #### [facility] [address] [place] [address], [place] CO2 [Moles/Vol] 26 mmol/L Normal 21-31 [facility] Comment on above: Order Comment: No: D o not add to previous draw Performed By: #### 8 5499 #### [facility] [address] [place] [address], [place] Creatinine [Mass/Vol] 0.58 mg/dL Low 0.60-1.20 [facility] Comment on above: Order Comment: No: D o not add to previous draw Performed By: #### 8 5499 #### [facility] [address] [place] [address], [place] GFR/1.73 sq M.predicted among blacks MDRD (S/P/Bld) [Vol rate/Area] mL/min/{1.73_m2} Normal >60 [facility] Comment on above: Order Comment: No: D o not add to previous draw Performed By: #### 8 5499 #### [facility] [address] [place] [address], [place] GFR/1.73 sq M.predicted among non-blacks MDRD (S/P/Bld) [Vol rate/Area] mL/min/{1.73_m2} Normal >60 [facility] Comment on above: Order Comment: No: D o not add to previous draw Performed By: #### 8 5499 #### [facility] [address] [place] [address], [place] Glucose [Mass/Vol] 101 mg/dL High 70-100 [facility] Comment on above: Order Comment: No: D o not add to previous draw Performed By: #### 8 5499 #### [facility] [address] [place] [address], [place] Potassium [Moles/Vol] 4.2 mmol/L Normal 3.5-5.1 [facility] Comment on above: Order Comment: No: D o not add to previous draw Performed By: #### 8 5499 #### [facility] [address] [place] [address], [place] Sodium [Moles/Vol] 133 mmol/L Low 136-145 [facility] Comment on above: Order Comment: No: D o not add to previous draw Performed By: #### 8 5499 #### [facility] [address] [place] [address], [facility] Urea nitrogen [Mass/Vol] 9 mg/dL Normal 7-25 [facility] Comment on above: Order Comment: No: D o not add to previous draw Performed By: #### 8 5499 #### [facility] [address] [place] [address], [facility] CBC COMPLETE BLOOD COUNTon - Erythrocyte distribution width (RBC) [Ratio] 14.7 % Normal 11.5-15.0 [facility] Comment on above: Order Comment: No: D o not add to previous draw Performed By: #### 1 0, 84697, 49000 #### [facility] [address] [place] [address], [facility] Hematocrit (Bld) [Volume fraction] 24.1 % Low 36.0-45.0 [facility] Comment on above: Order Comment: No: D o not add to previous draw Performed By: #### 1 69, 39980, 13963 #### [facility] [address] [place] [address], [facility] Hemoglobin (Bld) [Mass/Vol] 7.7 g/dL Low 12.0-15.0 [facility] Comment on above: Order Comment: No: D o not add to previous draw Performed By: #### 1 0, 16824, 92395 #### [facility] [address] [place] [address], [facility] MCH (RBC) [Entitic mass] 29.8 pg Normal 27.0-33.0 [facility] Comment on above: Order Comment: No: D o not add to previous draw Performed By: #### 1 69, 73452, 85253 #### [facility] [address] [place] [id number], [facility] MCHC (RBC) [Mass/Vol] 32.0 g/dL Normal 32.0-35.0 [facility] Comment on above: Order Comment: No: D o not add to previous draw Performed By: #### 1 0, 46038, 84419 #### [facility] [address] [place] [id number], [facility] MCV (RBC) [Entitic vol] 93.4 fL Normal 82.0-98.0 [facility] Comment on above: Order Comment: No: D o not add to previous draw Performed By: #### 1 0, 11879, 40564 #### [facility] [address] [place] [address], [facility] Nucleated RBC/100 WBC (Bld) [Ratio] 0 % Normal 0-0 [facility] Comment on above: Order Comment: No: D o not add to previous draw Performed By: #### 1 0, 20434, 61588 #### [facility] [address] [place] [address], [facility] PLAT CNT 604 10*3/uL High 150-400 [facility] Comment on above: Order Comment: No: D o not add to previous draw Performed By: #### 1 0, 26513, 97226 #### [facility] [address] [place] [id number], [facility] RBC (Bld) [#/Vol] 2.58 10*6/uL Low 3.80-5.00 [facility] Comment on above: Order Comment: No: D o not add to previous draw Performed By: #### 1 0070, 61308, 98524 #### [facility] [address] [place] [address], [place] WBC (Bld) [#/Vol] 9.58 10*3/uL Normal 4.00-10.60 [facility] Comment on above: Order Comment: No: D o not add to previous draw Performed By: #### 1 0070, 34327, 13776 #### [facility] [address] [place] [address], [facility] MAGNESIUM BLOODon 10-26-2021 Magnesium [Mass/Vol] 2.3 mg/dL Normal 1.9-2.7 [facility] Comment on above: Order Comment: No: D o not add to previous draw Performed By: #### 8 5499 #### [facility] [address] [place] [address], [facility] PHOSPHORUS BLOODon Phosphate [Mass/Vol] 3.5 mg/dL Normal 2.5-5.0 [facility] Comment on above: Order Comment: No: D o not add to previous draw Performed By: #### 8 5499 #### [facility] [address] [place] [address], [facility] BASIC METABOLIC PANELon 05-0 Calcium [Mass/Vol] 8.1 mg/dL Low 8.6-10.3 [facility] Comment on above: Order Comment: No: D o not add to previous draw Performed By: #### 1 0070, 39151, 94536 #### [facility] [address] [place] [address], [place] Chloride [Moles/Vol] 103 mmol/L Normal 98-107 [facility] Comment on above: Order Comment: No: D o not add to previous draw Performed By: #### 1 0070, 09527, 49738 #### [facility] [address] [place] [address], [place] CO2 [Moles/Vol] 25 mmol/L Normal 21-31 [facility] Comment on above: Order Comment: No: D o not add to previous draw Performed By: #### 1 0070, 25537, 21038 #### [facility] [address] [place] [address], [place] Creatinine [Mass/Vol] 0.60 mg/dL Normal 0.60-1.20 [facility] Comment on above: Order Comment: No: D o not add to previous draw Performed By: #### 1 0, 92516, 17451 #### [facility] [address] [place] [address], [place] GFR/1.73 sq M.predicted among blacks MDRD (S/P/Bld) [Vol rate/Area] mL/min/{1.73_m2} Normal >60 [facility] Comment on above: Order Comment: No: D o not add to previous draw Performed By: #### 1 0, 95326, 07799 #### [facility] [address] [place] [address], [place] GFR/1.73 sq M.predicted among non-blacks MDRD (S/P/Bld) [Vol rate/Area] mL/min/{1.73_m2} Normal >60 The [facility] Comment on above: Order Comment: No: D o not add to previous draw Performed By: #### 1 0, 07570, 74967 #### [facility] [address] [place] [address], [place] Glucose [Mass/Vol] 124 mg/dL High 70-100 The [facility] Comment on above: Order Comment: No: D o not add to previous draw Performed By: #### 1 0, 75469, 46955 #### [facility] [address] [place] [address], [place] Potassium [Moles/Vol] 4.0 mmol/L Normal 3.5-5.1 The [facility] Comment on above: Order Comment: No: D o not add to previous draw Performed By: #### 1 0, 44353, 25172 #### [facility] [address] [place] [address], [place] Sodium [Moles/Vol] 134 mmol/L Low 136-145 The [facility] Comment on above: Order Comment: No: D o not add to previous draw Performed By: #### 1 0070, 03238, 96348 #### [facility] [address] Urea nitrogen [Mass/Vol] 8 mg/dL Normal 7-25 The [facility] Comment on above: Order Comment: No: D o not add to previous draw Performed By: #### 1 0070, 86869, 52638 #### [facility] [address] [place] [address], [facility] CBC W/DIFFon 10-25-2021 ABS IMM GRANS 0.2 10*3/uL Normal 0.0-0.2 The [facility] Comment on above: Performed By: #### 3 0310 #### [facility] [address] ABS NEUTROPHILS 7.0 10*3/uL Normal 1.6-7.6 The [facility] Comment on above: Performed By: #### 3 0310 #### [facility] [address] [place] [address], [facility] Basophils (Bld) [#/Vol] 0.0 10*3/uL Normal 0.0-0.2 The [facility] Comment on above: Performed By: #### 3 0310 #### [facility] [address] [place] [address], [facility] Basophils/100 WBC (Bld) 0.2 % Normal 0.0-1.0 The [facility] Comment on above: Performed By: #### 3 0310 #### [facility] [address] [place] [address], [facility] Eosinophils (Bld) [#/Vol] 0.1 10*3/uL Normal 0.0-0.5 The [facility] Comment on above: Performed By: #### 3 0310 #### [facility] [address] [place] [address], [facility] Eosinophils/100 WBC (Bld) 0.9 % Normal 0.0-6.0 The [facility] Comment on above: Performed By: #### 3 0310 #### [facility] [address] [place] [address], [facility] Erythrocyte distribution width (RBC) [Ratio] 14.5 % Normal 11.5-15.0 The [facility] Comment on above: Performed By: #### 3 0310 #### [facility] [address] [place] [address], [facility] Hematocrit (Bld) [Volume fraction] 23.5 % Low 36.0-45.0 The [facility] Comment on above: Performed By: #### 3 0310 #### [facility] [address] [place] [address], [facility] Hemoglobin (Bld) [Mass/Vol] 7.9 g/dL Low 12.0-15.0 The [facility] Comment on above: Performed By: #### 3 0310 #### [facility] [address] [place] [address], [facility] IMMATURE GRANS 2.6 % High 0.0-1.0 The [facility] Comment on above: Performed By: #### 3 0310 #### [facility] [address] [place] [address], [facility] Lymphocytes (Bld) [#/Vol] 1.2 10*3/uL Normal 1.2-4.0 The [facility] Comment on above: Performed By: #### 3 0310 #### [facility] [address] [place] [address], [facility] Lymphocytes/100 WBC (Bld) 13.2 % Low 20.0-45.0 The [facility] Comment on above: Performed By: #### 3 0310 #### [facility] [address] [facility] [address] MCH (RBC) [Entitic mass] 31.0 pg Normal 27.0-33.0 The [facility] Comment on above: Performed By: #### 3 0310 #### [facility] [address] [facility] MCHC (RBC) [Mass/Vol] 33.6 g/dL Normal 32.0-35.0 The [facility] Comment on above: Performed By: #### 3 0310 #### [facility] [address] [place] [address], [facility] MCV (RBC) [Entitic vol] 92.2 fL Normal 82.0-98.0 The [facility] Comment on above: Performed By: #### 3 0310 #### [facility] [address] [place] [address], [facility] Monocytes (Bld) [#/Vol] 0.6 10*3/uL Normal 0.1-1.0 The [facility] Comment on above: Performed By: #### 3 0310 #### [facility] [address] MONOS 6.5 % Normal 5.0-12.0 The [facility] Comment on above: Performed By: #### 3 0310 #### [facility] [address] [facility]. [address] Neutrophils/100 WBC (Bld) 76.6 % High 40.0-72.0 The [facility] Comment on above: Performed By: #### 3 0310 #### [facility] [address] [place] [address], [facility] Nucleated RBC/100 WBC (Bld) [Ratio] 0 % Normal 0-0 The [facility] Comment on above: Performed By: #### 3 0310 #### [facility] [address] [facility] [address] PLAT CNT 586 10*3/uL High 150-400 The [facility] Comment on above: Performed By: #### 3 0310 #### [facility] [address] [place] [address], [facility] RBC (Bld) [#/Vol] 2.55 10*6/uL Low 3.80-5.00 The [facility] Comment on above: Performed By: #### 3 0310 #### [facility] [address] [place] [address], [facility] WBC (Bld) [#/Vol] 9.12 10*3/uL Normal 4.00-10.60 The [facility] Comment on above: Performed By: #### 3 0310 #### [facility] [address] [facility] MAGNESIUM BLOODon 10-25-2021 Magnesium [Mass/Vol] 2.3 mg/dL Normal 1.9-2.7 The [facility] Comment on above: Order Comment: No: D o not add to previous draw Performed By: #### 1 0070, 31137, 64891 #### [facility] [address] PHOSPHORUS BLOODon Phosphate [Mass/Vol] 3.8 mg/dL Normal 2.5-5.0 The [facility] Comment on above: Order Comment: No: D o not add to previous draw Performed By: #### 1 0070, 98710, 43379 #### [facility] [address] *ANAEROBIC CULTUREon 022 *ANAEROBIC CULTURE Clinical Report: (C) Specimen: FLUID Collected: 10/24/2021 12:45 Status: Final Last Updated: 10/29/2021 07:44 (1) Post Surgical Abscess ISO (Final) ^No Anaerobes Isolated 5 Days Result changed by AVILA on 10/29/2021 07:44. The previous result was: ISO (Prelim) ^No strict anaerobes isolated to Date Normal The [facility] Comment on above: Order Comment: Post Surgical Abscess Performed By: #### 8 5499 #### [facility] [address] *BODY FLUID CULTUREon 2021 *BODY FLUID CULTURE Clinical Report: (D) Specimen: FLUID Collected: 10/24/2021 12:45 Status: Final Last Updated: 10/26/2021 09:49 (1) Post Surgical Abscess GRAM (Final) Many Polys No Bacteria Seen ISO (Final) Escherichia coli Light Growth ISOLATE: Escherichia coli --- MILLICENT (mcg/ml) AMP./SULBAC (AMS) 4/2 Susceptible AMPICILLIN (AM) <=4 Susceptible AZTREONAM (AZM) <=2 Susceptible CEFAZOLIN (CZ) 4 Susceptible CEFTRIAXONE (YARN HANDLER) <=1 Susceptible CIPROFLOXACIN (CIP) <=0.25 Susceptible ESBL (-/+) (ESBL) Negative GENTAMICIN (GM) <=2 Susceptible PIP/TAZO (TZP) <=2/4 Susceptible TOBRAMYCIN (TOB) <=2 Susceptible TRIMETH/SULFA (SXT) <=0.5/9.5 Susceptible Normal The [facility] Comment on above: Order Comment: Post Surgical Abscess Performed By: #### 8 5499 #### [facility] [address] BASIC METABOLIC PANELon 09-27 Calcium [Mass/Vol] 8.2 mg/dL Low 8.6-10.3 The [facility] Comment on above: Order Comment: No: D o not add to previous draw Performed By: #### 1 0070, 28337, 33224 #### [facility] [address] Chloride [Moles/Vol] 103 mmol/L Normal 98-107 The [facility] Comment on above: Order Comment: No: D o not add to previous draw Performed By: #### 1 0070, 61553, 32910 #### [facility] [address] [place] [address], [place] CO2 [Moles/Vol] 25 mmol/L Normal 21-31 [facility] Comment on above: Order Comment: No: D o not add to previous draw Performed By: #### 1 0070, 26473, 84995 #### [facility] [address] [place] [address], [place] Creatinine [Mass/Vol] 0.49 mg/dL Low 0.60-1.20 [facility] Comment on above: Order Comment: No: D o not add to previous draw Performed By: #### 1 0, 54061, 42304 #### [facility] [address] [place] [address], [facility] GFR/1.73 sq M.predicted among blacks MDRD (S/P/Bld) [Vol rate/Area] mL/min/{1.73_m2} Normal >60 [facility] Comment on above: Order Comment: No: D o not add to previous draw Performed By: #### 1 0, 21252, 17093 #### [facility] [address] [place] [address], [place] GFR/1.73 sq M.predicted among non-blacks MDRD (S/P/Bld) [Vol rate/Area] mL/min/{1.73_m2} Normal >60 [facility] Comment on above: Order Comment: No: D o not add to previous draw Performed By: #### 1 0, 33024, 68194 #### [facility] [address] [place] [address], [place] Glucose [Mass/Vol] 94 mg/dL Normal 70-100 [facility] Comment on above: Order Comment: No: D o not add to previous draw Performed By: #### 1 0, 15443, 77654 #### [facility] [address] [place] [address], [facility] Potassium [Moles/Vol] 4.3 mmol/L Normal 3.5-5.1 The [facility] Comment on above: Order Comment: No: D o not add to previous draw Performed By: #### 1 0070, 28735, 24853 #### [facility] [address] [place] [address], [facility] Sodium [Moles/Vol] 134 mmol/L Low 136-145 The [facility] Comment on above: Order Comment: No: D o not add to previous draw Performed By: #### 1 0070, 02316, 95757 #### [facility] [address] [place] [address], [facility] Urea nitrogen [Mass/Vol] 8 mg/dL Normal 7-25 The [facility] Comment on above: Order Comment: No: D o not add to previous draw Performed By: #### 1 0, 39976, 39151 #### [facility] [address] [place] [address], [facility] C REACTIVE PROTEINon 022 CRP [Mass/Vol] 136.0 mg/L High 0.0-7.0 [facility] Comment on above: Order Comment: No: D o not add to previous draw Performed By: #### 8 5499 #### [facility] [address] [place] [id number], [facility] CALCIUM IONIZED CBGLon 10-24 IONIZED CALCIUM 1.22 mmol/L Normal 1.12-1.30 The [facility] Comment on above: Performed By: #### 8 5499 #### [facility] [address] [place] [id number], [facility] CBC COMPLETE BLOOD COUNTon 0 10-24-2021 Erythrocyte distribution width (RBC) [Ratio] 14.5 % Normal 11.5-15.0 The [facility] Comment on above: Order Comment: RLQ P ERIHEPATIC FLUID DRAINAGE Performed By: #### 3 1216 #### [facility] [address] [place] [address], [facility] Hematocrit (Bld) [Volume fraction] 22.8 % Low 36.0-45.0 The [facility] Comment on above: Order Comment: RLQ P ERIHEPATIC FLUID DRAINAGE Performed By: #### 3 0310 #### [facility] [address] [place] [address], [facility] Hemoglobin (Bld) [Mass/Vol] 7.5 g/dL Low 12.0-15.0 The [facility] Comment on above: Order Comment: RLQ P ERIHEPATIC FLUID DRAINAGE Performed By: #### 3 0310 #### [facility] [address] [place] [id number], [facility] MCH (RBC) [Entitic mass] 30.5 pg Normal 27.0-33.0 The [facility] Comment on above: Order Comment: RLQ P ERIHEPATIC FLUID DRAINAGE Performed By: #### 3 0310 #### [facility] [address] [place] [address], [facility] MCHC (RBC) [Mass/Vol] 32.9 g/dL Normal 32.0-35.0 The [facility] Comment on above: Order Comment: RLQ P ERIHEPATIC FLUID DRAINAGE Performed By: #### 3 0310 #### [facility] [address] [place] [address], [facility] MCV (RBC) [Entitic vol] 92.7 fL Normal 82.0-98.0 The [facility] Comment on above: Order Comment: RLQ P ERIHEPATIC FLUID DRAINAGE Performed By: #### 3 0310 #### [facility] [address] [facility] [place] [address], [facility] Nucleated RBC/100 WBC (Bld) [Ratio] 0 % Normal 0-0 The [facility] Comment on above: Order Comment: RLQ P ERIHEPATIC FLUID DRAINAGE Performed By: #### 3 0310 #### [facility] [address] [place] [address], [facility] PLAT CNT 522 10*3/uL High 150-400 The [facility] Comment on above: Order Comment: RLQ P ERIHEPATIC FLUID DRAINAGE Performed By: #### 3 0310 #### [facility] [address] [place] [address], [facility] RBC (Bld) [#/Vol] 2.46 10*6/uL Low 3.80-5.00 [facility] Comment on above: Order Comment: RLQ P ERIHEPATIC FLUID DRAINAGE Performed By: #### 3 0310 #### [facility] [address] [place] [address], [facility] WBC (Bld) [#/Vol] 12.81 10*3/uL High 4.00-10.60 [facility] Comment on above: Order Comment: RLQ P ERIHEPATIC FLUID DRAINAGE Performed By: #### 3 0310 #### [facility] [address] [place] [id number], [facility] LIVER BATTERYon 10-24-2021 Albumin [Mass/Vol] 2.8 g/dL Low 3.5-5.7 [facility] Comment on above: Order Comment: No: D o not add to previous draw Performed By: #### 1 0070, 31056, 20238 #### [facility] [address] [place] [address], [facility] ALKALINE PHOSPH 149 IU/L High 34-104 [facility] Comment on above: Order Comment: No: D o not add to previous draw Performed By: #### 1 0070, 55351, 06134 #### [facility] [address] [place] [address], [facility] ALT [Catalytic activity/Vol] 55 U/L High 7-52 [facility] Comment on above: Order Comment: No: D o not add to previous draw Performed By: #### 1 0070, 17120, 43759 #### [facility] [address] [place] [address], [place] AST [Catalytic activity/Vol] 38 U/L Normal 13-39 [facility] Comment on above: Order Comment: No: D o not add to previous draw Performed By: #### 1 0, 51922, 16245 #### [facility] [address] [place] [address], [place] Bilirubin [Mass/Vol] 2.9 mg/dL High 0.3-1.0 [facility] Comment on above: Order Comment: No: D o not add to previous draw Performed By: #### 1 0, 40011, 38287 #### [facility] [address] [place] [address], [place] Bilirubin.direct [Mass/Vol] 1.7 mg/dL High 0.0-0.2 [facility] Comment on above: Order Comment: No: D o not add to previous draw Performed By: #### 1 0, 19292, 21186 #### [facility] [address] [place] [address], [place] Protein [Mass/Vol] 5.6 g/dL Low 6.0-8.3 The [facility] Comment on above: Order Comment: No: D o not add to previous draw Performed By: #### 1 0, 73951, 44486 #### [facility] [address] [place] [address], [place] MAGNESIUM BLOODon 10-24-2021 Magnesium [Mass/Vol] 2.1 mg/dL Normal 1.9-2.7 [facility] Comment on above: Order Comment: No: D o not add to previous draw Performed By: #### 1 0, 17788, 02570 #### [facility] [address] [place] [address], [place] PHOSPHORUS BLOODon Phosphate [Mass/Vol] 3.6 mg/dL Normal 2.5-5.0 [facility] Comment on above: Order Comment: No: D o not add to previous draw Performed By: #### 1 0070, 66292, 07149 #### [facility] [address] [place] [address], [place] POC GLUCOSE LABon 10-24-2021 Glucose [Mass/Vol] 101 mg/dL High 70-100 The [facility] Comment on above: Performed By: #### 8 5499 #### [facility] [address] [place] [address], [place] Glucose [Mass/Vol] 107 mg/dL High 70-100 [facility] Comment on above: Performed By: #### 8 5499 #### [facility] [address] [place] [address], [place] Glucose [Mass/Vol] 114 mg/dL High 70-100 The [facility] Comment on above: Performed By: #### 8 5499 #### [facility] [address] [place] [address], [place] PREALBUMINon 10-24-2021 Prealbumin [Mass/Vol] 12.6 mg/dL Low 17.0-34.0 The [facility] Comment on above: Order Comment: No: D o not add to previous draw Performed By: #### 1 0, 03877, 03995 #### [facility] [address] [place] [address], [place] TRIGLYCERIDES BLOODon 2021 Triglyceride [Mass/Vol] 122 mg/dL Normal 40-149 [facility] Comment on above: Order Comment: No: D o not add to previous draw Result Comment: TRIG LYCERIDE REFERENCE RANGE: 20 YEARS AND OLDER CARDIOVASCULAR RISK LESS THAN 150 mg/dl LOW RISK 150 TO 199 mg/dl BORDERLINE RISK 200 mg/dl AND GREATER HIGH RISK Performed By: #### 1 0, 27711, 22991 #### [facility] [address] APTTon 10-23-2021 aPTT Coag (Bld) [Time] 26.1 s Normal 25.0-35.0 [facility] Comment on above: Result Comment: ALL RESULTS MUST BE INTERPRETED WITH RESPECT TO BLOOD DRAWING ARTIFACT OR DILUTION ERROR OF ANTICOAGULANT AT THE TIME OF SAMPLING. THE APTT SHOULD NOT BE USED TO MONITOR UNFRACTIONATED HEPARIN THERAPY, THIS LABORATORY NO LONGER HAS AN ESTABLISHED THERAPEUTIC RANGE BASED ON THE APTT. IT IS RECOMMENDED THAT THE [facility] - HEPARIN ASSAY (ANTI-XA ACTIVITY) BE USED FOR THIS PURPOSE. Performed By: #### 8 5499 #### [facility] [address] BASIC METABOLIC PANELon 09-26 Calcium [Mass/Vol] 8.3 mg/dL Low 8.6-10.3 [facility] Comment on above: Order Comment: No: D o not add to previous draw Performed By: #### 1 0070, 09311, 81770 #### [facility] [address] [place] [address], [facility] Chloride [Moles/Vol] 102 mmol/L Normal 98-107 [facility] Comment on above: Order Comment: No: D o not add to previous draw Performed By: #### 1 0, 27407, 71324 #### [facility] [address] [facility] [address], [facility] CO2 [Moles/Vol] 26 mmol/L Normal 21-31 The [facility] Comment on above: Order Comment: No: D o not add to previous draw Performed By: #### 1 0070, 29575, 20401 #### [facility] [address] [facility] [place] [id number], [facility] Creatinine [Mass/Vol] 0.43 mg/dL Low 0.60-1.20 [facility] Comment on above: Order Comment: No: D o not add to previous draw Performed By: #### 1 0070, 12634, 13581 #### [facility] [address] [place] [address], [place] GFR/1.73 sq M.predicted among blacks MDRD (S/P/Bld) [Vol rate/Area] mL/min/{1.73_m2} Normal >60 [facility] Comment on above: Order Comment: No: D o not add to previous draw Performed By: #### 1 0, 90680, 03937 #### [facility] [address] [place] [address], [place] GFR/1.73 sq M.predicted among non-blacks MDRD (S/P/Bld) [Vol rate/Area] mL/min/{1.73_m2} Normal >60 [facility] Comment on above: Order Comment: No: D o not add to previous draw Performed By: #### 1 69, 72859, 17116 #### [facility] [address] [place] [address], [place] Glucose [Mass/Vol] 100 mg/dL Normal 70-100 [facility] Comment on above: Order Comment: No: D o not add to previous draw Performed By: #### 1 69, 72865, 75621 #### [facility] [address] [place] [address], [place] Potassium [Moles/Vol] 3.3 mmol/L Low 3.5-5.1 [facility] Comment on above: Order Comment: No: D o not add to previous draw Performed By: #### 1 69, 80392, 69726 #### [facility] [address] [place] [address], [place] Sodium [Moles/Vol] 135 mmol/L Low 136-145 [facility] Comment on above: Order Comment: No: D o not add to previous draw Performed By: #### 1 69, 53754, 12654 #### [facility] [address] [place] [address], [place] Urea nitrogen [Mass/Vol] 8 mg/dL Normal 7-25 [facility] Comment on above: Order Comment: No: D o not add to previous draw Performed By: #### 1 0070, 15126, 91831 #### [facility] [address] [place] [address], [facility] CBC W/DIFFon 10-23-2021 ABS IMM GRANS 0.4 10*3/uL High 0.0-0.2 [facility] Comment on above: Order Comment: RLQ P ERIHEPATIC FLUID DRAINAGE Performed By: #### 3 0310 #### [facility] [address] [place] [address], [facility] ABS NEUTROPHILS 12.4 10*3/uL High 1.6-7.6 The [facility] Comment on above: Order Comment: RLQ P ERIHEPATIC FLUID DRAINAGE Performed By: #### 3 0310 #### [facility] [address] [place] [address], [facility] Basophils (Bld) [#/Vol] 0.0 10*3/uL Normal 0.0-0.2 [facility] Comment on above: Order Comment: RLQ P ERIHEPATIC FLUID DRAINAGE Performed By: #### 3 0310 #### [facility] [address] [facility] [place] [address], [facility] Basophils/100 WBC (Bld) 0.2 % Normal 0.0-1.0 [facility] Comment on above: Order Comment: RLQ P ERIHEPATIC FLUID DRAINAGE Performed By: #### 3 0310 #### [facility] [address] [place] [address], [facility] Eosinophils (Bld) [#/Vol] 0.1 10*3/uL Normal 0.0-0.5 [facility] Comment on above: Order Comment: RLQ P ERIHEPATIC FLUID DRAINAGE Performed By: #### 3 0310 #### [facility] [address] [place] [address], [facility] Eosinophils/100 WBC (Bld) 0.5 % Normal 0.0-6.0 [facility] Comment on above: Order Comment: RLQ P ERIHEPATIC FLUID DRAINAGE Performed By: #### 3 0310 #### [facility] [address] [place] [address], [facility] Erythrocyte distribution width (RBC) [Ratio] 14.0 % Normal 11.5-15.0 [facility] Comment on above: Order Comment: RLQ P ERIHEPATIC FLUID DRAINAGE Performed By: #### 3 0310 #### [facility] [address] [place] [address], [facility] Hematocrit (Bld) [Volume fraction] 23.5 % Low 36.0-45.0 The [facility] Comment on above: Order Comment: RLQ P ERIHEPATIC FLUID DRAINAGE Performed By: #### 3 0310 #### [facility] [address] [place] [address], [facility] Hemoglobin (Bld) [Mass/Vol] 7.5 g/dL Low 12.0-15.0 The [facility] Comment on above: Order Comment: RLQ P ERIHEPATIC FLUID DRAINAGE Performed By: #### 3 0310 #### [facility] [address] [place] [address], [facility] IMMATURE GRANS 2.6 % High 0.0-1.0 The [facility] Comment on above: Order Comment: RLQ P ERIHEPATIC FLUID DRAINAGE Performed By: #### 3 0310 #### [facility] [address] [place] [address], [place] Lymphocytes (Bld) [#/Vol] 1.7 10*3/uL Normal 1.2-4.0 The [facility] Comment on above: Order Comment: RLQ P ERIHEPATIC FLUID DRAINAGE Performed By: #### 3 0310 #### [facility] [address] [place] [address], [place] Lymphocytes/100 WBC (Bld) 10.9 % Low 20.0-45.0 The [facility] Comment on above: Order Comment: RLQ P ERIHEPATIC FLUID DRAINAGE Performed By: #### 3 0310 #### [facility] [address] [place] [address], [facility] MCH (RBC) [Entitic mass] 30.2 pg Normal 27.0-33.0 The [facility] Comment on above: Order Comment: RLQ P ERIHEPATIC FLUID DRAINAGE Performed By: #### 3 0310 #### [facility] [address] [place] [id number], [facility] MCHC (RBC) [Mass/Vol] 31.9 g/dL Low 32.0-35.0 The [facility] Comment on above: Order Comment: RLQ P ERIHEPATIC FLUID DRAINAGE Performed By: #### 3 0310 #### [facility] [address] [facility] [place] [address], [facility] MCV (RBC) [Entitic vol] 94.8 fL Normal 82.0-98.0 The [facility] Comment on above: Order Comment: RLQ P ERIHEPATIC FLUID DRAINAGE Performed By: #### 3 0310 #### [facility] [address] [place] [address], [facility] Monocytes (Bld) [#/Vol] 0.9 10*3/uL Normal 0.1-1.0 The [facility] Comment on above: Order Comment: RLQ P ERIHEPATIC FLUID DRAINAGE Performed By: #### 3 0310 #### [facility] [address] [facility] [place] [id number], [facility] MONOS 5.7 % Normal 5.0-12.0 The [facility] Comment on above: Order Comment: RLQ P ERIHEPATIC FLUID DRAINAGE Performed By: #### 3 0310 #### [facility] [address] [place] [id number], [facility] Neutrophils/100 WBC (Bld) 80.1 % High 40.0-72.0 The [facility] Comment on above: Order Comment: RLQ P ERIHEPATIC FLUID DRAINAGE Performed By: #### 3 0310 #### [facility] [address] [facility] [place] [place] [address], [facility] Nucleated RBC/100 WBC (Bld) [Ratio] 0 % Normal 0-0 The [facility] Comment on above: Order Comment: RLQ P ERIHEPATIC FLUID DRAINAGE Performed By: #### 3 0310 #### [facility] [address] [facility] [place] [address], [facility] PLAT CNT 521 10*3/uL High 150-400 The [facility] Comment on above: Order Comment: RLQ P ERIHEPATIC FLUID DRAINAGE Performed By: #### 3 0310 #### [facility] [address] [facility] [place] [address], [facility] RBC (Bld) [#/Vol] 2.48 10*6/uL Low 3.80-5.00 The [facility] Comment on above: Order Comment: RLQ P ERIHEPATIC FLUID DRAINAGE Performed By: #### 3 0310 #### [facility] [address] [facility] [place] [place] [address], [facility] WBC (Bld) [#/Vol] 15.45 10*3/uL High 4.00-10.60 The [facility] Comment on above: Order Comment: RLQ P ERIHEPATIC FLUID DRAINAGE Performed By: #### 3 0310 #### [facility] [address] ABDOMEN AND PELVIS W ORAL CONTRASTon 10-23-2021 CT ABDOMEN AND PELVIS W ORAL CONTRAST [facility] Department of Radiology [address] [place] [id number] Patient Name: JULIA QUISPE : 1970 Sex: F Age: Race: White Pt. Location: [id number] Patient Status: I Ordered Date: 10/23/2021 4:05:00 PM Completed Date: 10/23/2021 09:55 PM Requesting Provider: CARRIE JOHNSON Attending Provider: JESSICA FREITAS Report Copy To: Signs & Symptoms: Abscess History: See Comments Comments: Fluid Collection, distinguish colon from abscess for IR drain Exam: CT ABDOMEN AND PELVIS W ORAL CONTRAST CT ABDOMEN AND PELVIS W ORAL CONTRAST 10/23/2021 9:55 PM CLINICAL INDICATIONS: Abscess TECHNOLOGIST COMMENTS: Abscess per order QUESTION FOR THE RADIOLOGIST: Fluid Collection, distinguish colon from abscess for IR drain PROTOCOL: Axial CT images of the abdomen and pelvis were obtained without IV contrast. TECHNIQUE: Multidetector CT axial slices of the abdomen and pelvis without IV contrast. Multiplanar reformats were performed and viewed on a separate workstation and reviewed to further define anatomy and possible pathology. All CT scans at this facility use dose modulation, iterative reconstruction, and/or weight based dosing when appropriate to reduce radiation dose to as low as reasonably achievable COMPARISON: Previous contrast study from earlier the same day FINDINGS: The solid organ detail is suboptimal without contrast GI contrast prepped was given in attempt to exclude any leak of contrast and better delineate the bowel in relation to the large collection in the right abdomen Upper abdominal findings No splenomegaly or significant perisplenic fluid No peripancreatic fluid Small low-density liver lesions are again seen statistically likely cysts There is dense material within the gallbladder There is some gallbladder wall thickening and/or fluid around the gallbladder which could be reactive There is no adrenal mass or hemorrhage seen There is GI contrast in the stomach and small bowel and large bowel without a visible leak of GI contrast Pelvis No hydronephrosis Nondilated gallbladder No fecal impaction Left hemicolon looks decompressed GI contrast is not yet reach the left hemicolon The mid and distal transverse colon also looks decompressed There is contrast in mildly distended cecum and ascending colon Contrast seen in the terminal ileum extending to the fatty ileocecal valve in the right lower quadrant There is gas within the large complex fluid collection which looks heterogeneous, extending from the gallbladder fossa and subhepatic region along the right paracolic gutter to the right pelvis. Given the density, there may be some blood products within this. Given the presence of gas, infected hematoma or abscess must be a primary concern It does not appear to communicate with the bowel or fill with the GI contrast currently The collection measures up to around 8 cm diameter in the right midabdomen The collection in the pelvis measures around 7 cm near the cul-de-sac region There is no abdominal aortic aneurysm No periaortic or iliopsoas retroperitoneal hematoma seen Density in the left abdominal wall is likely related to the recent surgery On the lung windows, there is gas seen throughout the bowel and there is gas visible in the fluid collection along the subhepatic region There is also small amount of gas in the left lower quadrant near the inferior be gastric vessels presumably postoperative in nature On the lung windows through the abdomen the gas-filled distended small bowel segment in the left abdomen looks somewhat unusual. It is difficult to determine if this relates to numerous gas bubbles and the lumen accentuated by the ileus and recent contrast administration similar to the appearance in the stomach. This is favored over mild pneumatosis There is no visible portal venous gas . This looks different than on the earlier exam as the bowel is better distended and better opacified Lung bases There is a small right pleural effusion There is trace left pleural effusion There is some patchy opacity in both bases likely atelectasis, favored over mild pneumonia There is yfkh-on-ymwkvaxb pericardial effusion Close follow-up is suggested to document clearing and normalization Bone reconstructions No compression fracture No aggressive disc disease seen IMPRESSION: Large complex fluid collection or hematoma in the right lateral abdomen extending from the gallbladder fossa and subhepatic space to the right pelvis and cul-de-sac measuring up to around 8 cm diameter There is gas within this structu (more content not included)... Normal The [facility] Comment on above: Order Comment: Fluid Collection, distinguish colon from abscess for IR drain MAGNESIUM BLOODon 10-23-2021 Magnesium [Mass/Vol] 2.1 mg/dL Normal 1.9-2.7 [facility] Comment on above: Order Comment: No: D o not add to previous draw Performed By: #### 1 0070, [id number], [id number] #### [facility] [address] [place] [address], [facility] PHOSPHORUS BLOODon 2 Phosphate [Mass/Vol] 2.6 mg/dL Normal 2.5-5.0 The [facility] Comment on above: Order Comment: No: D o not add to previous draw Performed By: #### 1 0070, [id number], [id number] #### [facility] [address] [place] [address], [facility] PROTHROMBIN TIMEon 2 INR Coag (PPP) [Relative time] 1.07 {INR} Normal 0.91-1.16 [facility] Comment on above: Order Comment: No: D o not add to previous draw Result Comment: ACCC P RECOMMENDED INR FOR WARFARIN THERAPY ------ ------- CONDITION INR PROPHYLAXIS OF VENOUS THROMBOSIS 2-3 (HIGH-RISK SURGERY) TREATMENT OF VENOUS THROMBOSIS 2-3 TREATMENT OF PULMONARY EMBOLISM 2-3 PREVENTION OF SYSTEMIC EMBOLISM: 2-3 ACUTE MYOCARDIAL INFARCTION TISSUE HEART VALVES VALVULAR HEART DISEASE ATRIAL FIBRILLATION RECURRENT SYSTEMIC EMBOLISM MECHANICAL HEART VALVE 2.5-3.5 FROM: ORAL ANTICOAGULANTS. MECHANISM OF ACTION, CLINICAL EFFECTIVENESS, AND OPTIMAL THERAPEUTIC RANGE. CHEST 1995;108:231S-246S. Performed By: #### 8 5499 #### [facility] [address] [place] [address], [facility] PT Coag (PPP) [Time] 13.9 s Normal 12.3-14.8 [facility] Comment on above: Order Comment: No: D o not add to previous draw Result Comment: ALL RESULTS MUST BE INTERPRETED WITH RESPECT TO BLOOD DRAWING ARTIFACT OR DILUTION ERROR OF ANTICOAGULANT AT THE TIME OF SAMPLING. Performed By: #### 8 5499 #### [facility] [address] [facility]. [address] Cardiovascular Lab Reporton 07-23-2021 Cardiovascular Lab Report [facility] Patient Name: Julia Quispe MR #: [id number] [facility] Physician: Josias Ruiz MD Service Date: 07/21/2021 Department of Birthdate: 1970 Medicine Room #: CC Division of Cardiology Adult Cardiovascular Services [facility] [address] [facility]. [place], [place] [address] Cardiovascular Laboratory Report EP STUDY AND AVNRT ABLATION PROCEDURE NOTE DATE OF PROCEDURE: 07/21/2021 PERFORMING PHYSICIAN: Dr. Josias Ruiz INDICATIONS FOR PROCEDURE: 1. SVT CONSENT: Patient LOCATION: EP Lab PROCEDURAL SEDATION: Versed and Fentanyl. Moderate sedation was administered by the sedation nurse under my supervision and noted in the anesthesia log. Intraprocedural face to face sedation time: 110min. Monitoring: Cardiac telemetry, Blood pressure, continuous pulse oxymetry. FLUROSCOPY: None PREPARATION: Preoperative antibiotics IV Ancef was administered. PROCEDURES PERFORMED: 1. Ultrasound guided vascular access for venous sheaths as documented below in procedure note. 2. Comprehensive EP study and catheter ablation for AVNRT. This includes right atrial recording and pacing, His bundle recording and right and left ventricular recording and pacing. 3. EP 3D mapping. 4. Coronary sinus recording and pacing to induce arrhythmia. 5. Induction of arrythmia and verification of ablation results. PROCEDURE NOTE: 50-year-old lady with a history of palpitations, was previously seen by Dr. 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 However, she had deferred ablation at that point of time and was seen by me subsequently due to persistence of these symptoms. She was brought to the EP Lab for about definitive treatment for underlying arrhythmias. The risks, benefits and alternatives of the procedure were discussed with the patient and family who agreed to proceed. Please refer to my consult note for details of the discussion and of indications. Patient was brought to the EP lab in the post absorptive state. A procedural pause was performed verifying the patient, the procedure. The right groin was prepped and draped in the usual sterile fashion. Preoperative antibiotics IV Ancef was administered. Ultrasound was used to image the right and left femoral veins and it was noted to be patent and this was used for vessel entry as noted below. After infiltration with 1% lidocaine, 4 venous sheaths were placed in the right. 5000U Heparin bolus was given and bolus given subsequently to target ACT above 250. Details of catheters placed as follows. RFV: 8Fx2 Quad to HRA, EZ steer to CS Upsized to 8F Vizigio sheath for Thermocool irrigated catheter. 6Fx 2 RV EP Cath: Quad to RV, CRD2 His Once catheters were in position in RV, RA, CS, we decided to proceed with EP study. AH was 82, HV was 54. While catheter is well being placed, the patient was noted to go into atrial tachyarrhythmias, which degenerated into atrial fibrillation. Given this, the patient had to be cardioverted to 300 joules and she did not convert on her own. Subsequent to that, repeatedly we measured the AH was 77 and HV was 41. At ventricular ERP was then performed from the RV, which revealed an evidence of retrograde bundle-branch block with no evidence of retrograde accessory pathway. VERP was noted at 600/260. Atrial pacing was done from proximal CS. AV Wenckebach cycle length was noted at 410ms. AEST was performed. She was noted to have echo beats at 600/280 milliseconds with a jump at 600/360ms. AERP was noted at 600/190. At this point, then given that she had no sustained tachycardia, I decided to initiate Isuprel, which was started at 2 mcg/minute and on this, the patient was noted to go into a narrow complex tachycardia at the rate of 180 to 190 beats per minute. The VA timing on this one was noted to be approximately 10 milliseconds and ventricular overdrive pacing did reveal VAHV response suggestive of AVNRT. Subsequently, pacing at 260 milliseconds from the proximal CS did terminate the tachycardia. This could be easily reproducible on multiple occasions and at this point of time given the diagnosis of AVNRT, I decided to proceed with slow pathway ablation. Thermocool irrigated catheter was advanced to target the inferior extension of the slow pathway over Vizigo sheath. Power was titrated to 30W with irrigation and ablation performed. A linear ablation was performed from the tricuspid valve all the way up to IVC. Junctions were noted during ablation. I performed insurance lesions also. Subsequent to this, a repeat EP study was performed, I could not demonstrate any AH jump or echo beats at this time. Repeat study did show atrial ERP at 600/250ms. Isuprel was starting at 2 mcg per minute and on this repeat study on multiple occasions not induce any tachycardia either. At this time, I felt t (more content not included)... Normal [facility] BASIC METABOLIC PANELon 06-28 Calcium [Mass/Vol] 9.3 mg/dL Normal 8.6-10.3 [facility] Comment on above: Performed By: #### 1 0070, [id number], [id number] #### [facility] [address] [facility] [address], [facility] Chloride [Moles/Vol] 109 mmol/L High 98-107 [facility] Comment on above: Performed By: #### 1 0070, 96513, 03295 #### [facility] [address] [facility] [address], [place] CO2 [Moles/Vol] 23 mmol/L Normal 21-31 The [facility] Comment on above: Performed By: #### 1 0070, 77911, 96947 #### [facility] [address] [address], [place] Creatinine [Mass/Vol] 0.87 mg/dL Normal 0.60-1.20 [facility] Comment on above: Performed By: #### 1 0070, 41220, 72463 #### [facility] [address] [address], [place] GFR/1.73 sq M.predicted among blacks MDRD (S/P/Bld) [Vol rate/Area] mL/min/{1.73_m2} Normal >60 [facility] Comment on above: Performed By: #### 1 0, 89108, 15394 #### [facility] [address] [place] [address], [facility] GFR/1.73 sq M.predicted among non-blacks MDRD (S/P/Bld) [Vol rate/Area] mL/min/{1.73_m2} Normal >60 [facility] Comment on above: Performed By: #### 1 0, 33307, 31596 #### [facility] [address] [facility] [address], [facility] Glucose [Mass/Vol] 97 mg/dL Normal 70-100 The [facility] Comment on above: Performed By: #### 1 0, 50238, 53002 #### [facility] [address] [facility] [address], [facility] Potassium [Moles/Vol] 5.0 mmol/L Normal 3.5-5.1 [facility] Comment on above: Performed By: #### 1 0, 87925, 78215 #### [facility] [address] [facility] [address], [facility] Sodium [Moles/Vol] 140 mmol/L Normal 136-145 The [facility] Comment on above: Performed By: #### 1 0, 59058, 04087 #### [facility] [address] [facility] [address], [facility] Urea nitrogen [Mass/Vol] 20 mg/dL Normal 7-25 [facility] Comment on above: Performed By: #### 1 0, 09430, 77305 #### [facility] [address] [address], [facility] CBC W/DIFFon 07-21-2021 ABS IMM GRANS 0.0 10*3/uL Normal 0.0-0.2 [facility] Comment on above: Performed By: #### 3 0310 #### [facility] [address] [place] [address], [facility] ABS NEUTROPHILS 7.4 10*3/uL Normal 1.6-7.6 [facility] Comment on above: Performed By: #### 3 0310 #### [facility] [address] [place] [address], [facility] Basophils (Bld) [#/Vol] 0.1 10*3/uL Normal 0.0-0.2 [facility] Comment on above: Performed By: #### 3 0310 #### [facility] [address] [place] [address], [facility] Basophils/100 WBC (Bld) 0.5 % Normal 0.0-1.0 [facility] Comment on above: Performed By: #### 3 0310 #### [facility] [address] [place] [address], [facility] Eosinophils (Bld) [#/Vol] 0.2 10*3/uL Normal 0.0-0.5 [facility] Comment on above: Performed By: #### 3 0310 #### [facility] [address] [place] [address], [place] Eosinophils/100 WBC (Bld) 1.6 % Normal 0.0-6.0 [facility] Comment on above: Performed By: #### 3 0310 #### [facility] [address] [place] [id number], [facility] Erythrocyte distribution width (RBC) [Ratio] 13.7 % Normal 11.5-15.0 [facility] Comment on above: Performed By: #### 3 0310 #### [facility] [address] [place] [id number], [facility] Hematocrit (Bld) [Volume fraction] 44.8 % Normal 36.0-45.0 [facility] Comment on above: Performed By: #### 3 0310 #### [facility] [address] [facility] [place] [address], [facility] Hemoglobin (Bld) [Mass/Vol] 14.7 g/dL Normal 12.0-15.0 [facility] Comment on above: Performed By: #### 3 0310 #### [facility] [address] [facility] [place] [address], [facility] IMMATURE GRANS 0.2 % Normal 0.0-1.0 [facility] Comment on above: Performed By: #### 3 0310 #### [facility] [address] [facility] [place] [address], [facility] Lymphocytes (Bld) [#/Vol] 1.7 10*3/uL Normal 1.2-4.0 [facility] Comment on above: Performed By: #### 3 0310 #### [facility] [address] [facility] [place] [place] [address], [facility] Lymphocytes/100 WBC (Bld) 17.2 % Low 20.0-45.0 [facility] Comment on above: Performed By: #### 3 0310 #### [facility] [address] [facility] [place] [address], [facility] MCH (RBC) [Entitic mass] 32.3 pg Normal 27.0-33.0 [facility] Comment on above: Performed By: #### 3 0310 #### [facility] [address] [facility] [place] [address], [facility] MCHC (RBC) [Mass/Vol] 32.8 g/dL Normal 32.0-35.0 [facility] Comment on above: Performed By: #### 3 0310 #### [facility] [address] [place] [address], [facility] MCV (RBC) [Entitic vol] 98.5 fL High 82.0-98.0 [facility] Comment on above: Performed By: #### 3 0310 #### [facility] [address] [place] [address], [facility] Monocytes (Bld) [#/Vol] 0.6 10*3/uL Normal 0.1-1.0 [facility] Comment on above: Performed By: #### 3 0310 #### [facility] [address] [facility] [place] [address], [facility] MONOS 6.1 % Normal 5.0-12.0 [facility] Comment on above: Performed By: #### 3 0310 #### [facility] [address] [facility] [place] [address], [facility] Neutrophils/100 WBC (Bld) 74.4 % High 40.0-72.0 [facility] Comment on above: Performed By: #### 3 0310 #### [facility] [address] [place] [address], [facility] Nucleated RBC/100 WBC (Bld) [Ratio] 0 % Normal 0-0 [facility] Comment on above: Performed By: #### 3 0310 #### [facility] [address] [facility] [place] [address], [facility] PLAT CNT 291 10*3/uL Normal 150-400 [facility] Comment on above: Performed By: #### 3 0310 #### [facility] [address] [facility] [place] [address], [facility] RBC (Bld) [#/Vol] 4.55 10*6/uL Normal 3.80-5.00 The [facility] Comment on above: Performed By: #### 3 0310 #### [facility] [facility] [address] [facility] [place] [address], [facility] WBC (Bld) [#/Vol] 9.92 10*3/uL Normal 4.00-10.60 The [facility] Comment on above: Performed By: #### 3 0310 #### [facility] [address] [place] [address], [facility] Vital Signs Date Time Vital Sign Value Performing Clinician Facility 08-02-2023 15:42-0500 Body mass index (BMI) [Ratio] 26.57 kg/m2 Winsome Alvin DO Work Phone: [facility] 08-02-2023 15:42-0500 Body weight 68.04 kg Winsome Alvin DO Work Phone: [facility] 08-02-2023 15:42-0500 Diastolic blood pressure 80 mm[Hg] Winsome Alvin DO Work Phone: [facility] 08-02-2023 15:42-0500 Systolic blood pressure 138 mm[Hg] Winsome Alvin DO Work Phone: [facility] 12-06-2022 15:30-0400 Body height 162.56 cm Liliane Zavala Other [employer] Other 12-06-2022 15:30-0400 Body mass index (BMI) [Ratio] 21.28 kg/m2 Liliane Zavala Other [employer] Other 12-06-2022 15:30-0400 Body weight 56.25 kg Liliane Zavala Other [employer] Other 12-06-2022 15:30-0400 Diastolic blood pressure 83 mm[Hg] Liliane Zavala Other [employer] Other 12-06-2022 15:30-0400 Systolic blood pressure 141 mm[Hg] Liliane Zavala Other [employer] Other 10-27-2022 11:30-0400 Body height 162.56 cm Liliane Zavala Other [employer] Other 10-27-2022 11:30-0400 Body mass index (BMI) [Ratio] 21.28 kg/m2 Liliane Zavala Other [employer] Other 10-27-2022 11:30-0400 Body weight 56.25 kg Liliane Zavala Other [employer] Other 10-27-2022 11:30-0400 Diastolic blood pressure 84 mm[Hg] Liliane Zavala Other [employer] Other 10-27-2022 11:30-0400 SaO2% (BldA) [Mass fraction] 97 % Liliane Zavala Other [employer] Other 10-27-2022 11:30-0400 Systolic blood pressure 120 mm[Hg] Liliane Zavala Other [employer] Other Encounters Encounter Date Encounter Type Care Provider Facility Start: 03-01-2024 End: 03-01-2024 ambulatory MD Liliane Zavala Work Phone: [facility] Work Phone: Start: 03-01-2024 End: 03-01-2024 Patient encounter procedure MD Liliane Zavala Work Phone: [facility] Work Phone: Start: 02-14-2024 End: 02-14-2024 ambulatory MD Liliane Zavala Work Phone: [facility] Work Phone: Start: 02-14-2024 End: 02-14-2024 Patient encounter procedure MD Liliane Zavala Work Phone: [facility] [address] Work Phone: Start: 01-10-2024 End: 01-10-2024 ambulatory WINSOME ESQUIVEL Not Available Start: 12-06-2023 End: 12-06-2023 ambulatory MD Liliane Zavala Work Phone: [facility] Work Phone: Start: 12-06-2023 End: 12-06-2023 Patient encounter procedure MD Liliane Zavala Work Phone: [facility] [address] Work Phone: Start: 10-25-2023 End: 10-25-2023 ambulatory WINSOME ALVIN Not Available Start: 09-29-2023 End: 09-29-2023 ambulatory MD Liliane Zavala Work Phone: [facility] Work Phone: Start: 09-29-2023 End: 09-29-2023 Patient encounter procedure MD Liliane Zavala Work Phone: [facility] [address] Work Phone: Start: 09-16-2023 End: 09-16-2023 ambulatory MD Liliane Zavala Work Phone: [facility] Work Phone: Start: 09-16-2023 End: 09-16-2023 Patient encounter procedure MD Liliane Zavala Work Phone: [facility] [address] Work Phone: Start: 08-02-2023 End: 08-02-2023 Office outpatient visit 5 minutes Winsome Alvin DO Work Phone: [facility] Comment on above: Encounter for manage ment and injection of depo-Provera Start: 08-02-2023 End: 08-02-2023 ambulatory WINSOME ALVIN Not Available Start: 07-29-2023 End: 07-29-2023 ambulatory MD Liliane Zavala Work Phone: [facility] Work Phone: Start: 07-29-2023 End: 07-29-2023 Patient encounter procedure MD Liliane Zavala Work Phone: [facility] [address] Work Phone: Start: 07-25-2023 End: 07-25-2023 ambulatory WINSOME ESQUIVEL Not Available Start: 06-24-2023 End: 06-24-2023 ambulatory MD Liliane Zavala Work Phone: [facility] Work Phone: Start: 06-24-2023 End: 06-24-2023 Patient encounter procedure MD Liliane Zavala Work Phone: [facility] [address] Work Phone: Start: 06-22-2023 End: 06-22-2023 ambulatory Liliane Zavala Other [facility] [employer] Other Start: 06-22-2023 Telephone encounter Liliane Zavala [facility] Start: 06-07-2023 End: 06-07-2023 ambulatory MD Liliane Zavala Work Phone: [facility] Work Phone: Start: 06-07-2023 End: 06-07-2023 Patient encounter procedure MD Liliane Zavala Work Phone: [facility] [address] Work Phone: Start: 05-24-2023 End: 05-24-2023 ambulatory MD Liliane Zavala Work Phone: [facility] Work Phone: Start: 05-24-2023 End: 05-24-2023 Patient encounter procedure MD Liliane Zavala Work Phone: [facility] [address] Work Phone: Start: 05-13-2023 End: 05-13-2023 ambulatory MD Liliane Zavala Work Phone: [facility] Work Phone: Start: 05-13-2023 End: 05-13-2023 Patient encounter procedure MD Liliane Zavala Work Phone: [facility] [address] Work Phone: Start: 05-10-2023 End: 05-10-2023 ambulatory WINSOME ESQUIVEL Not Available Start: 12-08-2022 End: 12-08-2022 ambulatory Liliane Zavala Other [employer] Other Start: 12-08-2022 Telephone encounter Liliane Zavala [facility] Start: 12-06-2022 End: 12-06-2022 ambulatory Liliane Zavala Other [employer] Other Start: 12-06-2022 Office outpatient vi sit 15 minutes Liliane Zavala [facility] Start: 10-27-2022 Office outpatient vi sit 15 minutes Liliane Zavala [facility] Start: 10-27-2022 End: 10-28-[address] LILIANE ZAVALA [facility] [employer] Other Start: 09-28-2022 ambulatory ALESHA TREVIÑO Facilit y:H1 Start: 05-07-2022 End: 05-08-[address] WINSOME ESQUIVEL . Facility: Start: 04-07-2022 Gynecological examin ation normal Liliane Zavala Other [employer] Other Start: 02-01-2022 End: 02-01-[address] WINSOME ESQUIVEL . Facility: Start: 11-05-2021 End: 11-07-2021 Evaluation and management of inpatient LILIANE ZAVALA Facility:[facility] Start: 10-23-2021 End: 10-28-2021 Evaluation and management of inpatient LILIANE ZAVALA Facility:[facility] Procedures Date Procedure Procedure Detail Performing Clinician Start: 03-01-2024 Plain X-ray of left elbow MD Liliane Zavala Work Phone: Start: 08-02-2023 Urine test visual color cmprsn meths Winsome Esquivel DO Work Phone: Start: 01-29-2022 Screening for malign ant neoplasm of breast Liliane Zavala Other End: 04-11-2018 Contraception care education Liliane Zavala Other End: 05-07-2021 Depression screening Liliane Zavala Other Plan of Treatment Date Care Activity Detail Author Start: 03-07-2024 End: 03-07-2024 Patient encounter procedure 03/07/2024 4:00 PM EDT Office Visit [facility] [address] [place] [address] Winsome Esquivel, DO [address], [place] [address] [facility] Start: 03-01-2024 Plain X-ray of left elbow XR elbow LT min 3V* [facility] Start: 03-01-2024 XR Elbow - left GE 3 Views [facility] Start: 10-25-2023 End: 10-25-2023 Clinical Support 10/25/2023 3:00 PM EDT Clinical Support [facility] [address] [place] [address] [facility] Payers Date Payer Category Payer Self-pay [id number] 2023 Worker's Compensation [id number] 2017 Unknown [id number] 1971 Unknown [id number] 2.16.8 40.1.406635.3.579.2.647 1971 Unknown [id number] 2.16.8 40.1.785314.3.579.2.647 1971 Unknown [id number] 2.16.84 0.1.397127.3.579.2.593 1971 Unknown [id number] 2.16.84 0.1.165915.3.579.2.593 1971 Unknown [id number] 2.16.84 0.1.463895.3.579.2.593 1971 Unknown [id number] 2.16.84 0.1.511336.3.579.2.593 1971 Unknown [id number] 2.16.84 0.1.227606.3.579.2.1259 1971 Unknown [id number] 2.16.84 0.1.809935.3.579.2.1259 1971 Unknown [id number] 2.16.84 0.1.409110.3.579.2.1259 1971 Unknown [id number] 2.16.84 0.1.324623.3.579.2.1259 1971 Unknown [id number] 2.16.840. 1.324827.3.579.2.1259 1959 Blue Cross Blue Shield [id number] [id number] 1959 Unknown [id number] 1959 Unknown [id number] Unknown [id number] 2.16.8 40.1.350135.3.579.2.531 Unknown [id number] 2.16.8 40.1.363552.3.579.2.531 Unknown [id number] 2.16.8 40.1.938847.3.579.2.531 Unknown [id number] 2.16.8 40.1.192939.3.579.2.531 Social History Date Type Detail Facility Unknown if ever smoked [facility] [employer] Other Start: 07-25-[address] [facility] [employer] Other Start: 05-24-2021 Tobacco smoking status AKIS Current some day smoker [facility] Start: 1970 Sex Assigned At Female F [facility] Start: 12-06-2022 End: 01-06-2023 Tobacco smoking status AKIS Ex-smoker [facility] End: 10-11-2009 History of tobacco use Current smoker [facility] End: 10-11-2009 History of tobacco use Cigarette Smoker [facility] Start: 01-06-2023 Tobacco use and exposure Smokeless tobacco non-user [facility] Start: 08-02-2023 Alcohol intake Current drinke r of alcohol (finding) [facility] Start: 07-25-2023 History of Social function [facility] Start: 12-06-2022 Tobacco Comment 5-10 years sin ce last smoked [facility] Start: 12-06-2022 Alcohol Comment 3-4 drinks les s than monthly in the past year, Caffeine intake: 1-2 cups per day coffee [facility] Start: 11-30-2022 Gender identity Identifies as female gender (finding) [facility] Clinical Notes 09-25-2021 to 08-02-2023 Karolyn Santos LPN - 08/02/2023 3:50 PM EST Note Date & Type Note Facility 08-02-2023 History of Presen t illness Narrative Reason for Appointment: Patient ID: Julia Quispe is a 52 y.o. female who presents for Contraception (Depo injection) Patient presents today for a nurse visit to obtain Depo injection. Current Medications: has a current medication list which includes the following prescription(s): vitamin c, calcium, cholecalciferol, and medroxyprogesterone, and the following Facility-Administered Medications: medroxyprogesterone. Allergies Allergen Reactions Codeine Hives Midazolam Hives Vitals: Estimated body mass index is 26.57 kg/m as calculated from the following: Height as of 05/10/23: 5' 3 . Weight as of this encounter: 150 lb. BP: 138/80 No LMP recorded (lmp unknown). Patient has had an injection. Assessment/Plan Encounter Diagnosis Name Primary? Encounter for management and injection of depo-Provera Patient presents today for injection of Depo-Provera. Patients urine test today was negative. Depo injection was given intramuscularly via left buttocks Prior to administering the injection, the site was properly cleansed and time was allotted for the area to dry. Follow up: Patient is to return in 12 weeks for another Depo injection Documented by Dr. Winsome Esquivel & Yary Bliss PA-C Nursing Staff: Karolyn Santos LPN documented in this encounter [facility] 10-27-2022 Evaluation note Encounter Date Diagnosis Assessment Notes October, Right calf pain (ICD-10 - M79.661) eval w d-dimer as she presently doesn't have symptoms October, Other fatigue (ICD-10 - R53.83) discussed differential - will get labs right now. Discussed sleep quality and regular routine. October, Trochanteric bursitis, right hip (ICD-10 - M70.61) Gave HO of specific stretches. [employer] Other 05-15-2022 NoteMR#: [id number] I [facility] Pt. Name: Julia Quispe Admitted: 11/04/2021 Discharged: 11/07/2021 Date of : 1970 Physician: Josesito Bingham MD DISCHARGE SUMMARY PRINCIPAL DIAGNOSIS: Intraabdominal abscess. HOSPITAL COURSE: The patient is a 51-year-old female who presented to the hospital for increased abdominal pain. She recently underwent an appendectomy on 10/14/2021 at an outside hospital. She was just recently discharged on 10/28 for an intraabdominal abscess, status post appendectomy from outside hospital. CT abdomen and pelvis this admission showed another fluid collection in which IR was consulted for IR drainage in which another drain was placed. Prior to discharge, she was tolerating a diet. Her pain was controlled. Her discharge instructions included to follow up with Dr. Freitas in 1 week. She was discharged with Augmentin for another 7 days. She also was discharged with Flexeril 10 mg every 6 hours as needed for muscle spasms. She was also prescribed oxycodone 5 mg every 6 hours as needed for pain. She is to continue Tylenol 650 mg every 6 hours as needed for pain. She is to continue on all her home medications. She is to have a regular diet as tolerated. She is instructed to empty her MICHEAL drains and keep a log of output and bring to the followup appointment. She also was instructed to call on Tuesday to make a followup appoint with Dr. Freitas. The patient understood all discharge instructions and was discharged in stable condition. Electronically Signed by: Josesito Bingham MD 12/10/2021 01:42 P Josesito Bingham MD I personally saw this patient on the day of the encounter, performed the matamoros portion(s) of the service and participated in the management and confirm the resident's documentation. Please note there may be an additional personal documentation from me. Date Dict: 11/07/2021/06:02 P/Katie Tolentino CNP Date Trans: 11/07/2021 11:18 P/adrianna [id number] [facility]05-05-2022 NoteMR#: [id number] I [facility] Pt. Name: Julia Quispe Admitted: 10/23/2021 Discharged: 10/28/2021 Date of : 1970 Physician: Alejandrina Garza MD DISCHARGE SUMMARY PRINCIPAL DIAGNOSES: Abdominal abscess status post appendectomy on 10/14, and on 10/18, evacuation of hematoma done at outside hospital at [facility]. PROCEDURE PERFORMED: During this hospital stay was IR drain placed on 10/24 into the abdominal abscess. HOSPITAL COURSE: The patient is a 51-year-old female presented to the hospital for complaints of right lower quadrant pain. She recently underwent appendectomy on 10/14/2021 at [facility] and she was readmitted on 10/18 for right lower quadrant pain and she had a diagnostic laparoscopy for evacuation of hematoma on 10/19/2021 at [place]. She came back in for continued pain. She had a CT scan of abdomen and pelvis done, which showed concerns for abscess. Interventional Radiology was consulted to place a drain with an abscess. The patient was discharged with instructions to continue and monitor drain output. Dry dressing as needed. She is okay to shower. No heavy lifting greater than 15 pounds for 4-6 weeks until cleared by Surgery. Regular diet as tolerated. The patient was able to shower. The patient was discharged with OxyContin 5 mg every 6 hours as needed for pain. She also was given gabapentin as well. She was to follow up with her primary care physician in 1 week. She also is told to refer back to her surgeon for continued followup. She stressed that she did not want to follow up with her primary surgeon, and she will request to follow up with Dr. Freitas. She had a followup scheduled here on November 04 at 2:30 p.m. The patient understood all discharge instructions and was discharged in stable condition. Electronically Signed by: Alejandrina Garza MD 10/29/2021 02:58 P Alejandrina Garza MD I have reviewed this discharge summary and confirmed the resident's documentation. Please note that there may be additional documentation from me. Date Dict: 10/28/2021/03:51 P/Katie Tolentino [facility] NURSE Date Trans: 10/29/2021 05:27 A/adrianna [id number] cc: No Beltran M.D. [address] [place] [id number] general Narrative - Reported* Type Description Date Medical History SVT Medical History Factor 5 Surgical History Appendectomy 09/2021 [facility] [employer] [facility] [employer] Other Evaluation noteNo InformationN[facility]Select [facility] [employer] Other Evaluation noteNo assessment information available [facility] Work Phone: Evaluation note* Diagnosis Encounter for management and injection of depo-Provera documented in this encounter [facility]* Diagnosis Onset Date Resolution Status Lateral epicondylitis, left elbow acute [facility] Work Phone: History general [facility]ative - [facility] [employer] Other History general Narrative - Reported* Type Description Date Medical History SVT Medical History Factor 5 Medical History Asthma Medical History Postmenopausal Medical History 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 Medical History Acute deep vein thro mbosis (DVT) of distal end of left lower extremity Surgical History Appendectomy 09/2021 Surgical History 2001,2003 Surgical History WRIST Hospitalization History SEE SURGICAL HX [employer] Other Summary Purpose Family History No Family History Records Found Relationship Condition Age at Onset Recorded Date/T dianne Not Specified Heart disease Unknown Relationship Condition Age at Onset Recorded Date/T dianne mother Heart disease Unknown Advance Directives No Advanced Directives Records Found Advance Directive Response Recorded Date/ Time Advance Directives No April 28, 2017 2:54pm Advance Directive Response Recorded Date/ Time Advance Directives No April 28, 2017 3:54pm Chief Complaint and Reason for Visit Chief Complaint M77.12 Chief Complaint M77.12 M77.12 Chief Complaint M77.12 M77.12 M77.12 Chief Complaint M77.12 M77.12 M77.12 M77.12 Chief Complaint M77.12 M77.12 M77.12 M77.12 M77.12 Chief Complaint M77.12 M77.12 M77.12 Chief Complaint M77.12 M77.12 M77.12 Chief Complaint M77.12 M77.12 M77.12 Chief Complaint M77.12 M77.12 [facility] DOI 05/12/23 LT ELBOW M77.12 - Lateral epicondylitis, left elbow Reason for Visit Lateral epicondyliti s, left elbow Additional Source Comments INFORMATION SOURCE (unrecogn ized section and content) DATE CREATED AUTHOR 01/15/[address] [facility] DATE CREATED AUTHOR AUTHOR'S ORGANIZ ATION 03/06/2022 [facility] DATE CREATED AUTHOR AUTHOR'S ORGANIZ ATION 11/04/2022 [facility] pital DATE CREATED AUTHOR AUTHOR'S ORGANIZ ATION 01/14/2024 [facility] EPIC DATE CREATED AUTHOR AUTHOR'S ORGANIZ ATION 03/03/2024 [facility] y[facility] REASON FOR VISIT (unrecogniz ed section and content) Reason Comments Contraception Depo injection Care Teams (unrecognized sec tion and content) Team Status: Active Member Role Status Dates Liliane Zavala MD Primary Care Provider Active Team Status: Inactive Member Role Status Dates Liliane Zavala MD Primary Care Provider Active Adriane Rausch APRN Attending Provider Active [employer] Relationship Specialty Start Date End Date Liliane Zavala MD [address] [facility] [place] [id number] PCP - General Family Medicine 01/06/23 Team Status: Inactive Member Role Status Dates Liliane Zavala MD Primary Care Provider Active Start: May 13, 2023 End: May 13, 2023 Adriane Rausch APRN Attending Provider Active Start: May 13, 2023 End: May 13, 2023 Team Status: Inactive Member Role Status Dates Liliane Zavala MD Primary Care Provider Active Start: May 24, 2023 End: May 24, 2023 Adriane Rausch APRN Attending Provider Active Start: May 24, 2023 End: May 24, 2023 Team Status: Inactive Member Role Status Dates Liliane Zavala MD Primary Care Provider Active Start: June 07, 2023 End: June 07, 2023 Adriane Rausch APRN Attending Provider Active Start: June 07, 2023 End: June 07, 2023 Team Status: Inactive Member Role Status Dates Liliane Zavala MD Primary Care Provider Active Start: June 24, 2023 End: June 24, 2023 Adriane Rausch APRN Attending Provider Active Start: June 24, 2023 End: June 24, 2023 Team Status: Inactive Member Role Status Dates Liliane Zavala MD Primary Care Provider Active Start: July 29, 2023 End: July 29, 2023 Adriane Rausch APRN Attending Provider Active Start: July 29, 2023 End: July 29, 2023 Team Status: Inactive Member Role Status Dates Liliane Zavala MD Primary Care Provider Active Start: September 16, 2023 End: September 16, 2023 Adriane Rausch APRN Attending Provider Active Start: September 16, 2023 End: September 16, 2023 Team Status: Inactive Member Role Status Dates Liliane Zavala MD Primary Care Provider Active Start: September 29, 2023 End: September 29, 2023 Adriane Rausch APRN Attending Provider Active Start: September 29, 2023 End: September 29, 2023 Team Status: Inactive Member Role Status Dates Liliane Zavala MD Primary Care Provider Active Start: December 06, 2023 End: December 06, 2023 Adriane Rausch APRN Attending Provider Active Start: December 06, 2023 End: December 06, 2023 Team Status: Inactive Member Role Status Dates Liliane Zavala MD Primary Care Provider Active Start: February 14, 2024 End: February 14, 2024 Adriane Rausch APRN Attending Provider Active Start: February 14, 2024 End: February 14, 2024 Team Status: Inactive Member Role Status Dates Liliane Zavala MD Primary Care Provider Active Start: March 01, 2024 End: March 01, 2024 Pasha Kinney DO Attending Provider Active St art: March 01, 2024 End: March 01, 2024 Team Status: Active Member Role Status Dates Liliane Zavala MD Primary Care Provider Active Start: March 01, 2024 Pasha Kinney DO Attending Provider Active St art: March 01, 2024 Goals (unrecognized section and content) Goals may be documented in a n alternate section FOR RECORDS PERTAINING TO PATIENTS WHO ARE OR HAVE BEEN ENROLLED IN A CHEMICAL DEPENDENCY/SUBSTANCEABUSE PROGRAM, SOME INFORMATION MAY BE OMITTED. This clinical summary was aggregated from multiple sources. Caution should be exercised in using it in the provision of clinical care. This summary normalizes information from multiple sources, and as a consequence, information in this document may materially change the coding, format and clinical context of patient data. In addition, data may be omitted in some cases. CLINICAL DECISIONS SHOULD BE BASED ON THE PRIMARY CLINICAL RECORDS. [facility] [employer] provides no warranty or guarantee of the accuracy or completeness of information in this document.
== END 2024-03-07 20:34 | disposition home or self-care (01) ==
LOC: LAB 20:33
PROVIDERS: PCP Family Medicine; Visit Provider Obstetrics & Gynecology
DX: Z01.419 Encounter for gynecological examination (general) (routine) without abnormal findings (principal); Z30.42 Encounter for surveillance of injectable contraceptive
CPT/HCPCS: 87624; 88175

== ENCOUNTER 2024-03-14 15:31 | Outpatient (RCR) | payer OTHER, SELFPAY | END 2024-04-27 10:06 | disposition home or self-care (01) | LOC: PT 15:31 | PROVIDERS: PCP Family Medicine; Visit Provider Physician Assistant | DX: M77.12 Lateral epicondylitis, left elbow (principal) | CPT/HCPCS: 97026; 97035; 97110; 97140; 97161 ==

== ENCOUNTER 2024-04-12 14:57 | Outpatient (OUT) | payer BC, SELFPAY ==
--- OUTSIDE RECORDS SUMMARY | 2024-04-12 15:06 | XMS_ITS | CCD ---
Author Organization [facility] Care Team Providers Care Nnp Name Role Phone LILIANE ZAVALA Primary Care Unavailable JESSICA FREITAS Admitting Unavailable JESSICA FREITAS Attending Unavailable NO BELTRAN Referring Unavailable LILIANE ZAVALA Primary Care Unavailable FAMILIA, JESSICA Admitting Unavailable JESSICA FREITAS Attending Unavailable SELF, REFERRED Referring Unavailable Liliane Zavala Unavailable ALVIN ., DR SCHUMACHER Consulting Unavailable ALVIN ., DR SCHUMACHER Admitting Unavailable ZAVALA, DR LILIANE Poon Primary Care Unavailable ALVIN ., DR SCHUMACHER Attending Unavailable ALVIN ., DR SCHUMACHER Attending Unavailable [place], DR SEDA Donaldson Consulting Unavailable SALLY, DR [...] Primary Care Provider MC Rausch Attending Provider [phone] Liliane Zavala MD Primary Care Provider MD Liliane Zavala Primary Care Provider MC Rausch Attending Provider MD Liliane Zavala Primary Care Provider MC Rausch Attending Provider MD Liliane Zavala Primary Care Provider MC Rausch Attending Provider MD Liliane Zavala Primary Care Provider MC Rausch Attending Provider [phone] DO Pasah Kinney Attending Provider [phone] Rausch, Adriane D Admitting Unavailable Zavala, Liliane E Primary Care Unavailable Rausch, Adriane D Attending Unavailable Zavala, Liliane E Primary Care Unavailable Rausch, Adriane D Admitting Unavailable Rausch, Adriane D Attending Unavailable Zavala, Liliane E Primary Care Unavailable Pasha Kinney Admitting Unavailable Pasha Kinney Attending Unavailable Rausch, Adriane D Admitting Unavailable Zavala, Liliane E Primary Care Unavailable Rausch, Adirane D Attending Unavailable Rausch, Adrinae D Admitting Unavailable Zavala, Liliane E Primary [...] Care Unavailable Rausch, Adriane D Attending Unavailable WINSOME ESQUIVEL Attending Unavailable WINSOME ESQUIVEL Attending Unavailable Allergies Allergy Classification Reported Allergen(s) Allergy Type Date of Onset Reaction(s) Facility (14 sources) Codeine Drug Allergy 6 Hives [facility] Repository (13 sources) Midazolam Drug Allergy 9 Hives, VERSED [facility] Repository (6 sources) Codeine Drug Allergy 9 hives [facility] Work Phone: (6 sources) Midazolam; Translations: [Versed] Drug Allergy 6 hives [facility] Repository (1 source) Codeine Drug Allergy Unknown mobicanvas Other (1 source) Allergies Reconciled Propensity to adverse reactions Unknown mobicanvas Other (1 source) Versed *HYPNOTICS/CARLOTTA TIVES/SLEEP DISORDER AGENTS* Propensity to adverse reactions Unknown mobicanvas Other (1 source) patient allergy list reviewed by nurse or physicia Propensity to adverse reactions 6 Comment:Done mobicanvas Other (1 source) Midazolam Drug Allergy 2 [facility] (7 sources) Versed *HYPNOTICS/CARLOTTA TIVES/SL Allergy to substance 3 [facility] (1 source) Codeine Drug Allergy 1 [facility] Repository (1 source) Midazolam Drug Allergy 1 [facility] Repository Medications Current Medications Medication Drug [...] current use of drug therapy; Translations: [Other chcf (current) drug therapy] Episodic Other connective tissue [...] elbow; Translations: [Lateral epicondylitis, left elbow] Onset: Viral infection (11 sources) Disease caused by [...] 3V*on 2023 XR elbow LT min 3V* [facility] [address] [place] [address] XRay Report Signed Patient: Julia Quispe MR#: [id number] 73 : 1970 Acct:[id number] Age/Sex: 53 / F ADM Date: 03/01/24 Loc: [facility] Room: Type: [facility] Attending Dr: Pasha Kinney DO [...] Nikole Macdonald M.D.03/01/2024 3:31 PM Dictation Location: [place] [address] Transcribed By: [facility] 03/01/24 1531 Dictated By: Nikole Macdonald MD 03/01/24 1530 Signed By: 03/01/24 1531 Normal [facility] HCG ( test) Ql (U)o n 08-02-2023 Interpretation and review of laboratory results Normal [facility] re Preg Test, Ur Negative [facility] Health care [facility] Health[facility] e CBC AUTO DIFFon 10-27-2022 BASO # 0.0 103/ul Normal 0.0-0.1 [facility] Comment on above: Performed By: #### C BC #### [facility] [address] [place] [address] Dr. Neeta Nunez Basophils/100 WBC (Bld) 0.3 % Normal 0.2-2.0 [facility] Comment on above: Performed By: #### C BC #### [facility] [address] [place] [address] Dr. Neeta Nunez EO # 0.0 103/ul Normal 0.0-0.7 [facility] Comment on above: Performed By: #### C BC #### [facility] [address] [place] [address] Dr. Neeta Nunez Eosinophils/100 WBC (Bld) 0.3 % Critically low 0.9-7.0 [facility] Comment on above: Performed By: #### C BC #### [facility] [address] [place] [address] Dr. Neeta Nunez Erythrocyte distribution width (RBC) [Ratio] 12.9 % Normal 11.0-15.0 [facility] Comment on above: Performed By: #### C BC #### [facility] [address] [place] [address] Dr. Neeta Nunez Hematocrit (Bld) [Volume fraction] 44.3 % Normal 36.0-48.0 [facility] Comment on above: Performed By: #### C BC #### [facility] [address] [place] [address] Dr. Neeta Nunez Hemoglobin (Bld) [Mass/Vol] 14.6 g/dL Normal 12.0-16.0 [facility] Comment on above: Performed By: #### C BC #### [facility] [address] [place] [address] Dr. Neeta Nunez IG # 0.01 10e3/ul Normal 0.00-0.03 [facility] Comment on above: Performed By: #### C BC #### [facility] [address] [place] [address] Dr. Neeta Nunez IG % 0.1 % Normal 0.0-0.5 [facility] Comment on above: Performed By: #### C BC #### [facility] [address] [place] [address] Dr. Neeta Nunez LYMPH # 2.4 103/ul Normal 1.2-3.8 [facility] Comment on above: Performed By: #### C BC #### [facility] [address] [place] [address] Dr. Neeta Nunez Lymphocytes/100 WBC (Bld) 32.5 % Normal 20.5-60.0 [facility] Comment on above: Performed By: #### C BC #### [facility] [address] [place] [address] Dr. Neeta Nunez MANUAL DIFF REQ NO Normal [facility] Comment on above: Performed By: #### C BC #### [facility] [address] [place] [address] Dr. Neeta Nunez MCH (RBC) [Entitic mass] 31.7 pg Normal 26.7-34.0 [facility] Comment on above: Performed By: #### C BC #### [facility] [address] [place] [address] Dr. Neeta Nunez MCHC (RBC) [Mass/Vol] 33.0 g/dL Normal 29.9-35.2 [facility] Comment on above: Performed By: #### C BC #### [facility] [address] [place] [address] Dr. Neeta Nunez MCV (RBC) [Entitic vol] 96.1 fL Normal 81.0-99.0 [facility] Comment on above: Performed By: #### C BC #### [facility] [address] [place] [address] Dr. Neeta Nunez MONO # 0.4 103/ul Normal 0.3-0.8 [facility] Comment on above: Performed By: #### C BC #### [facility] [address] [place] [address] Dr. Neeta Nunez Monocytes/100 WBC (Bld) 5.3 % Normal 1.7-12.0 [facility] Comment on above: Performed By: #### C BC #### [facility] [address] [place] [address] Dr. Neeta Nunez NEUT # 4.6 103/ul Normal 1.4-6.5 [facility] Comment on above: Performed By: #### C BC #### [facility] [address] [place] [address] Dr. Neeta Nunez Neutrophils/100 WBC (Bld) 61.5 % Normal 43.0-75.0 [facility] Comment on above: Performed By: #### C BC #### [facility] [address] [place] [address] Dr. Neeta Nunez Platelet mean volume (Bld) [Entitic vol] 8.6 fL Critically low 9.5-13.5 [facility] Comment on above: Performed By: #### C BC #### [facility] [address] [place] [address] Dr. Neeta Nunez PLT 278 103/ul Normal 150-450 [facility] Comment on above: Performed By: #### C BC #### [facility] [address] [place] [address] Dr. Neeta Nunez RBC 4.61 106/ul Normal 4.20-5.40 [facility] Comment on above: Performed By: #### C BC #### [facility] [address] [place] [address] Dr. Neeta Nunez WBC 7.4 103/ul Normal 4.0-11.0 [facility] Comment on above: Performed By: #### C BC #### [facility] [address] [place] [address] Dr. Neeta Nunez D-DIMERon 10-27-2022 D-DIMER 0.22 mg/L FEU Normal <=0.59 [facility] Comment on above: Performed By: #### D DIM #### [facility] [address] [place] [address] Dr. Neeta Nunez D-DIMER COMMENTS SEE BELOW Normal [facility] Comment on above: Result Comment: Incr eases [...] hospitalization. Performed By: #### D DIM #### [facility] [address] [place] [address] Dr. Neeta Nunez FREE T4on 10-27-2022 Free T4 [Mass/Vol] 0.94 ng/dL Normal 0.76-1.46 [facility] Comment on above: Performed By: #### F T4 #### [facility] [address] [place] [address] Dr. Neeta Nunez PROF CHEM 8 (BAS METB)on Anion gap [Moles/Vol] 13.2 mmol/L Normal [facility] Comment on above: Performed By: #### T SH, BMP #### [facility] [address] [place] [address] Dr. Neeta Nunez Calcium [Mass/Vol] 9.8 mg/dL Normal 8.5-10.1 [facility] Comment on above: Performed By: #### T SH, BMP #### [facility] [address] [place] [address] Dr. Neeta Nunez Chloride [Moles/Vol] 102 mmol/L Normal 98-107 [facility] Comment on above: Performed By: #### T SH, BMP #### [facility] [address] [place] [address] Dr. Neeta Nunez CO2 [Moles/Vol] 28.2 mmol/L Normal 21.0-32.0 [facility] Comment on above: Performed By: #### T SH, BMP #### [facility] [address] [place] [address] Dr. Neeta Nunez Creatinine [Mass/Vol] 0.88 mg/dL Normal 0.55-1.02 [facility] Comment on above: Performed By: #### T SH, BMP #### [facility] [address] [place] [address] Dr. Neeta Nunez EGFR-AF SLOVAK >60 Normal >=60 [facility] Comment on above: Performed By: #### T SH, BMP #### [facility] [address] [place] [address] Dr. Neeta Nunez EGFR-NON AF SLOVAK >60 Normal >=60 [facility] Comment on above: Performed By: #### T SH, BMP #### [facility] [address] [place] [address] Dr. Neeta Nunez Glucose [Mass/Vol] 103 mg/dL Normal 74-106 [facility] Comment on above: Performed By: #### T SH, BMP #### [facility] [address] [place] [address] [address] Neeta Nunez Potassium [Moles/Vol] 3.4 mmol/L Critically low 3.5-5.1 [facility] Comment on above: Performed By: #### T SH, BMP #### [facility] [address] [place] [address] [address] Neeta Nunez Sodium [Moles/Vol] 140 mmol/L Normal 136-145 [facility] Comment on above: Performed By: #### T SH, BMP #### [facility] [address] [place] [address] [address] Neeta Nunez Urea nitrogen [Mass/Vol] 21.0 mg/dL Critically high 7.0-18.0 [facility] Comment on above: Performed By: #### T SH, BMP #### [facility] [address] [place] [address] [address] Neeta Nunez Urea nitrogen/Creatinine [Mass ratio] 23.9 mg/mg Normal [facility] Comment on above: Performed By: #### T SH, BMP #### [facility] [address] [place] [address] [address] Neeta Nunez TSHon 10-27-2022 TSH 0.980 uIU/mL Normal 0.358-3.740 [facility] Comment on above: Performed By: #### T SH, BMP #### [facility] [address] [place] [address] [address] Neeta Nunez MG MAMM SCREEN 3D KATARINA CADon 05-07-2022 MG MAMM SCREEN 3D KATARINA CAD Patient: JULAI QUISPE Exam Date: 05/07/2022 : 1970 Gender:F Ordering : DR WINSOME ESQUIVEL . Admission #: [id number] Family : Order #: [id number] CLICK HERE TO VIEW EXAM RADIOLOGY REPORT [...] No Treatments None Family Cancers None LOCATION: [facility] BREAST COMPOSITION: Heterogeneously dense,which may [...] Seda Urias MD on 05/07/2022 at 09:15 [facility] XR DEXA BONE DENSITYon 05-07 XR DEXA [...] by: JANIYA HAYES Date: 2022-05-07 07:27 Normal [facility] Abstracton 02-25-2022 Abstract [id number] Alia Quispe 1970 F Date Provider Department Center 02/25/2022 [id number] Comprehensiv Family History Problem Relation Age of Onset Atrial fibrillation Mother Atrial fibrillation Father Family Status - Relation Status Age at Mother Father Normal [facility] PAP ACOG PANEL 2: 30 to 65on 02-05-2022 . . Normal [facility] Comment on above: Result Comment: Perf ormed at: WB Performed By: #### 4 [id number] #### [facility] [address] [place] [address] Dr. Neeta Nunez Age Gdln ACOG Testing 30-65 Normal [facility] Comment on above: Performed By: #### 4 [id number] #### [facility] [address] [place] [address] Dr. Neeta Nunez DIAGNOSIS: Comment Normal [facility] Comment on above: Result Comment: NEGA TIVE FOR INTRAEPITHELIAL LESION OR MALIGNANCY. CELLULAR CHANGES ASSOCIATED WITH ATROPHY ARE PRESENT. Performed at: WB Performed By: #### [id number] #### [facility] [address] [place] [address] Dr. Neeta Nunez HPV Aptima Negative Normal [facility] Comment on above: Result Comment: This nucleic acid amplification test detects fourteen high-risk HPV types (16,18,31,33,35,39,45,51,52,56,58,59,66,68) without differentiation. Performed at: =G Performed By: #### 4 [id number] #### [facility] [address] [place] [address] Dr. Neeta Nunez Methodology: Comment Normal [facility] Comment on above: Result Comment: This liquid based ThinPrep(R) pap test was screened with the use of an image guided system. Performed at: WB Performed By: #### 4 [id number] #### [facility] [address] [place] [address] Dr. Neeta Nunez Note: Comment Normal [facility] Comment on above: Result Comment: The Pap smear is a screening test designed to aid in the detection of premalignant and malignant conditions of the uterine cervix. It is not a diagnostic procedure and should not be used as the sole means of detecting cervical cancer. Both false-positive and false-negative reports do occur. . Performed at: WB Performed By: #### 4 [id number] #### [facility] [address] [place] [address] Dr. Neeta Nunez Performed by: Comment Normal [facility] Comment on above: Result Comment: Herb White, Inserter Operator (ASCP) Performed at: WB Performed By: #### 4 [id number] #### [facility] [address] [place] [address] [address] Neeta Nunez Specimen adequacy: Comment Normal [facility] Comment on above: Result Comment: Sati sfactory for evaluation. Endocervical component may not be distinguished in cases of atrophy. Performed at: WB Performed By: #### 4 [id number] #### [facility] [address] [place] [address] [address] Neeta Nunez BASIC METABOLIC PANELon 05- Calcium [Mass/Vol] 9.1 mg/dL Normal 8.6-10.3 [facility] Comment on above: Order Comment: No: D o not add to previous draw Performed By: #### 1 0070, 53553, 16335 #### [facility] [address] [place] [address], [place] Chloride [Moles/Vol] 105 mmol/L Normal 98-107 [facility] Comment on above: Order Comment: No: D o not add to previous draw Performed By: #### 1 0070, 01790, 64058 #### [facility] [address] [place] [address], [place] CO2 [Moles/Vol] 26 mmol/L Normal 21-31 [facility] Comment on above: Order Comment: No: D o not add to previous draw Performed By: #### 1 0070, 15753, 32861 #### [facility] [address] [place] [address], [place] Creatinine [Mass/Vol] 0.68 mg/dL Normal 0.60-1.20 [facility] Comment on above: Order Comment: No: D o not add to previous draw Performed By: #### 1 0070, 31031, 20080 #### [facility] [address] [place] [address], [place] GFR/1.73 sq M.predicted among blacks MDRD (S/P/Bld) [Vol rate/Area] mL/min/{1.73_m2} Normal >60 [facility] Comment on above: Order Comment: No: D o not add to previous draw Performed By: #### 1 0, 59707, 33804 #### [facility] [address] [place] [address], [place] GFR/1.73 sq M.predicted among non-blacks MDRD (S/P/Bld) [Vol rate/Area] mL/min/{1.73_m2} Normal >60 [facility] Comment on above: Order Comment: No: D o not add to previous draw Performed By: #### 1 0, 88158, 44984 #### [facility] [address] [place] [address], [place] Glucose [Mass/Vol] 90 mg/dL Normal 70-100 [facility] Comment on above: Order Comment: No: D o not add to previous draw Performed By: #### 1 0, 60572, 77407 #### [facility] [address] [place] [address], [place] Potassium [Moles/Vol] 4.0 mmol/L Normal 3.5-5.1 [facility] Comment on above: Order Comment: No: D o not add to previous draw Performed By: #### 1 0, 32611, 43573 #### [facility] [address] [place] [address], [place] Sodium [Moles/Vol] 137 mmol/L Normal 136-145 [facility] Comment on above: Order Comment: No: D o not add to previous draw Performed By: #### 1 0, 61883, 85926 #### [facility] [address] [place] [address], [place] Urea nitrogen [Mass/Vol] 7 mg/dL Normal 7-25 [facility] Comment on above: Order Comment: No: D o not add to previous draw Performed By: #### 1 69, 03054, 52372 #### [facility] [address] CBC COMPLETE BLOOD COUNTon 11-07-2021 Erythrocyte distribution width (RBC) [Ratio] 13.6 % Normal 11.5-15.0 [facility] Comment on above: Order Comment: RLQ P ERIHEPATIC FLUID DRAINAGE Performed By: #### 3 0310 #### [facility] [address] [place] [address], [facility] Hematocrit (Bld) [Volume fraction] 29.5 % Low 36.0-45.0 [facility] Comment on above: Order Comment: RLQ P ERIHEPATIC FLUID DRAINAGE Performed By: #### 3 0310 #### [facility] [address] Hemoglobin (Bld) [Mass/Vol] 8.7 g/dL Low 12.0-15.0 [facility] Comment on above: Order Comment: RLQ P ERIHEPATIC FLUID DRAINAGE Performed By: #### 3 0310 #### [facility] [address] [place] [address], [facility] MCH (RBC) [Entitic mass] 28.5 pg Normal 27.0-33.0 [facility] Comment on above: Order Comment: RLQ P ERIHEPATIC FLUID DRAINAGE Performed By: #### 3 0310 #### [facility] [address] [place] [address], [facility] MCHC (RBC) [Mass/Vol] 29.5 g/dL Low 32.0-35.0 [facility] Comment on above: Order Comment: RLQ P ERIHEPATIC FLUID DRAINAGE Performed By: #### 3 0310 #### [facility] [address] [place] [address], [facility] MCV (RBC) [Entitic vol] 96.7 fL Normal 82.0-98.0 [facility] Comment on above: Order Comment: RLQ P ERIHEPATIC FLUID DRAINAGE Performed By: #### 3 0310 #### [facility] [address] [facility] [address] Nucleated RBC/100 WBC (Bld) [Ratio] 0 % Normal 0-0 [facility] Comment on above: Order Comment: RLQ P ERIHEPATIC FLUID DRAINAGE Performed By: #### 3 0310 #### [facility] [address] [facility] [place] [address], [facility] PLAT CNT 422 10*3/uL High 150-400 [facility] Comment on above: Order Comment: RLQ P ERIHEPATIC FLUID DRAINAGE Performed By: #### 3 0310 #### [facility] [address] [place] [address], [facility] RBC (Bld) [#/Vol] 3.05 10*6/uL Low 3.80-5.00 [facility] Comment on above: Order Comment: RLQ P ERIHEPATIC FLUID DRAINAGE Performed By: #### 3 0310 #### [facility] [address] [place] [address], [facility] WBC (Bld) [#/Vol] 4.76 10*3/uL Normal 4.00-10.60 [facility] Comment on above: Order Comment: RLQ P ERIHEPATIC FLUID DRAINAGE Performed By: #### 3 0310 #### [facility] [address] APTTon 11-06-2021 aPTT Coag (Bld) [Time] 32.4 s Normal 25.0-35.0 [facility] Comment on above: Order Comment: No: [...] THIS PURPOSE. Performed By: #### 1 0070, 66733, 58774 #### [facility] [address] [place] [address], [facility] BASIC METABOLIC PANELon 05- Calcium [Mass/Vol] 8.9 mg/dL Normal 8.6-10.3 [facility] Comment on above: Order Comment: No: D o not add to previous draw Performed By: #### 1 0, 73233, 29453 #### [facility] [address] [place] [address], [facility] Chloride [Moles/Vol] 105 mmol/L Normal 98-107 [facility] Comment on above: Order Comment: No: D o not add to previous draw Performed By: #### 1 0, 14475, 67062 #### [facility] [address] [place] [address], [place] CO2 [Moles/Vol] 25 mmol/L Normal 21-31 [facility] Comment on above: Order Comment: No: D o not add to previous draw Performed By: #### 1 0, 83590, 61432 #### [facility] [address] [place] [address], [facility] Creatinine [Mass/Vol] 0.72 mg/dL Normal 0.60-1.20 [facility] Comment on above: Order Comment: No: D o not add to previous draw Performed By: #### 1 0, 23119, 83863 #### [facility] [address] [place] [address], [place] GFR/1.73 sq M.predicted among blacks MDRD (S/P/Bld) [Vol rate/Area] mL/min/{1.73_m2} Normal >60 [facility] Comment on above: Order Comment: No: D o not add to previous draw Performed By: #### 1 0, 16353, 97192 #### [facility] [address] [place] [address], [facility] GFR/1.73 sq M.predicted among non-blacks MDRD (S/P/Bld) [Vol rate/Area] mL/min/{1.73_m2} Normal >60 [facility] Comment on above: Order Comment: No: D o not add to previous draw Performed By: #### 1 0070, 15155, 80605 #### [facility] [address] [place] [address], [facility] Glucose [Mass/Vol] 95 mg/dL Normal 70-100 [facility] Comment on above: Order Comment: No: D o not add to previous draw Performed By: #### 1 0070, 68210, 37817 #### [facility] [address] [place] [address], [facility] Potassium [Moles/Vol] 3.9 mmol/L Normal 3.5-5.1 [facility] Comment on above: Order Comment: No: D o not add to previous draw Performed By: #### 1 0070, 80714, 91890 #### [facility] [address] [place] [address], [facility] Sodium [Moles/Vol] 137 mmol/L Normal 136-145 [facility] Comment on above: Order Comment: No: D o not add to previous draw Performed By: #### 1 0070, 75838, 58797 #### [facility] [address] [place] [address], [facility] Urea nitrogen [Mass/Vol] 8 mg/dL Normal 7-25 [facility] Comment on above: Order Comment: No: D o not add to previous draw Performed By: #### 1 0070, 38898, 03932 #### [facility] [address] [place] [address], [facility] CBC COMPLETE BLOOD COUNTon 0 - Erythrocyte distribution width (RBC) [Ratio] 13.6 % Normal 11.5-15.0 [facility] Comment on above: Order Comment: RLQ P ERIHEPATIC FLUID DRAINAGE Performed By: #### 3 0310 #### [facility] [address] [place] [address], [facility] Hematocrit (Bld) [Volume fraction] 29.6 % Low 36.0-45.0 [facility] Comment on above: Order Comment: RLQ P ERIHEPATIC FLUID DRAINAGE Performed By: #### 3 0310 #### [facility] [address] [place] [address], [facility] Hemoglobin (Bld) [Mass/Vol] 9.2 g/dL Low 12.0-15.0 [facility] Comment on above: Order Comment: RLQ P ERIHEPATIC FLUID DRAINAGE Performed By: #### 3 0310 #### [facility] [address] [place] [address], [facility] MCH (RBC) [Entitic mass] 29.6 pg Normal 27.0-33.0 [facility] Comment on above: Order Comment: RLQ P ERIHEPATIC FLUID DRAINAGE Performed By: #### 3 0310 #### [facility] [address] [facility] [place] [address], [facility] MCHC (RBC) [Mass/Vol] 31.1 g/dL Low 32.0-35.0 [facility] Comment on above: Order Comment: RLQ P ERIHEPATIC FLUID DRAINAGE Performed By: #### 3 0310 #### [facility] [address] [facility] [place] [address], [facility] MCV (RBC) [Entitic vol] 95.2 fL Normal 82.0-98.0 [facility] Comment on above: Order Comment: RLQ P ERIHEPATIC FLUID DRAINAGE Performed By: #### 3 0310 #### [facility] [address] [place] [address], [facility] Nucleated RBC/100 WBC (Bld) [Ratio] 0 % Normal 0-0 [facility] Comment on above: Order Comment: RLQ P ERIHEPATIC FLUID DRAINAGE Performed By: #### 3 0310 #### [facility] [address] [place] [address], [facility] PLAT CNT 476 10*3/uL High 150-400 [facility] Comment on above: Order Comment: RLQ P ERIHEPATIC FLUID DRAINAGE Performed By: #### 3 0310 #### [facility] [address] [place] [id number], [facility] RBC (Bld) [#/Vol] 3.11 10*6/uL Low 3.80-5.00 [facility] Comment on above: Order Comment: RLQ P ERIHEPATIC FLUID DRAINAGE Performed By: #### 3 0310 #### [facility] [address] [place] [id number], [facility] WBC (Bld) [#/Vol] 6.78 10*3/uL Normal 4.00-10.60 [facility] Comment on above: Order Comment: RLQ P ERIHEPATIC FLUID DRAINAGE Performed By: #### 3 0310 #### [facility] [address] [place] [address], [facility] LIVER BATTERYon 11-06-2021 Albumin [Mass/Vol] 3.3 g/dL Low 3.5-5.7 [facility] Comment on above: Order Comment: No: D o not add to previous draw Performed By: #### 1 0070, 08663, 61213 #### [facility] [address] [place] [address], [facility] ALKALINE PHOSPH 108 IU/L High 34-104 [facility] Comment on above: Order Comment: No: D o not add to previous draw Performed By: #### 1 0070, 52664, 14203 #### [facility] [address] [place] [address], [facility] ALT [Catalytic activity/Vol] 50 U/L Normal 7-52 [facility] Comment on above: Order Comment: No: D o not add to previous draw Performed By: #### 1 0070, 34095, 64042 #### [facility] [address] [place] [address], [place] AST [Catalytic activity/Vol] 11 U/L Low 13-39 [facility] Comment on above: Order Comment: No: D o not add to previous draw Performed By: #### 1 0070, 86050, 39916 #### [facility] [address] [place] [address], [place] Bilirubin [Mass/Vol] 0.8 mg/dL Normal 0.3-1.0 [facility] Comment on above: Order Comment: No: D o not add to previous draw Performed By: #### 1 0070, 44362, 99965 #### [facility] [address] [place] [address], [place] Bilirubin.direct [Mass/Vol] 0.2 mg/dL Normal 0.0-0.2 [facility] Comment on above: Order Comment: No: D o not add to previous draw Performed By: #### 1 0070, 07091, 96859 #### [facility] [address] [place] [address], [place] Protein [Mass/Vol] 6.3 g/dL Normal 6.0-8.3 [facility] Comment on above: Order Comment: No: D o not add to previous draw Performed By: #### 1 0070, 47275, 69790 #### [facility] [address] [place] [address], [place] MAGNESIUM BLOODon 11-06-2021 Magnesium [Mass/Vol] 2.0 mg/dL Normal 1.9-2.7 [facility] Comment on above: Order Comment: No: D o not add to previous draw Performed By: #### 1 0070, 04294, 95913 #### [facility] [address] [place] [address], [place] PHOSPHORUS BLOODon 2 Phosphate [Mass/Vol] 4.2 mg/dL Normal 2.5-5.0 [facility] Comment on above: Order Comment: No: D o not add to previous draw Performed By: #### 1 0, 62533, 01349 #### [facility] [address] [place] [address], [facility] PROTHROMBIN TIMEon 2 INR Coag (PPP) [Relative time] 1.12 {INR} Normal 0.91-1.16 [facility] Comment on above: Order Comment: No: [...] RANGE. CHEST 1995;108:[id number]. Performed By: #### 1 0, 95071, 76810 #### [facility] [address] [facility] [place] [address], [facility] PT Coag (PPP) [Time] 14.4 s Normal 12.3-14.8 [facility] Comment on above: Order Comment: No: D o not add to previous draw Result Comment: ALL RESULTS MUST BE INTERPRETED WITH RESPECT TO BLOOD DRAWING ARTIFACT OR DILUTION ERROR OF ANTICOAGULANT AT THE TIME OF SAMPLING. Performed By: #### 1 0, 81694, 86946 #### [facility] [address] *ABSCESS CULTUREon *ABSCESS CULTURE Clinical Report: (D) Specimen: ABSCESS Collected: 11/05/2021 13:06 Status: Final Last Updated: 11/08/2021 07:07 (1) RLQ PERIHEPATIC FLUID DRAINAGE GRAM (Final) Many Polys No Bacteria Seen ISO (Final) Escherichia coli Heavy Growth ISOLATE: Escherichia coli --- MILLICENT (mcg/ml) AMP./SULBAC (AMS) 8/4 Susceptible AMPICILLIN (AM) <=4 Susceptible AZTREONAM (AZM) <=2 Susceptible CEFAZOLIN (CZ) 4 Susceptible CEFTRIAXONE (COMPUTER EDUCATION TEACHER) <=1 Susceptible CIPROFLOXACIN (CIP) <=0.25 Susceptible ESBL (-/+) (ESBL) Negative GENTAMICIN (GM) <=2 Susceptible PIP/TAZO (TZP) <=2/4 Susceptible TOBRAMYCIN (TOB) <=2 Susceptible TRIMETH/SULFA (SXT) <=0.5/9.5 Susceptible Normal [facility] Comment on above: Order Comment: RLQ P ERIHEPATIC FLUID DRAINAGE Performed By: #### 3 0310 #### [address] *ANAEROBIC CULTUREon 022 *ANAEROBIC CULTURE Clinical Report: (D) Specimen: DRAINAGE Collected: 11/05/2021 13:06 Status: Final Last Updated: 11/10/2021 09:47 (1) RLQ PERIHEPATIC FLUID DRAINAGE ISO (Final) Bacteroides fragilis Beta-Lactamase Positive ISO (Final) Eubacterium species Result changed by [email or web address] on 11/10/2021 09:47. The previous result was: ISO (Prelim) Normal [facility] Comment on above: Order Comment: RLQ P ERIHEPATIC FLUID DRAINAGE Performed By: #### 3 0310 #### [facility] [address] APTTon 11-05-2021 aPTT Coag (Bld) [Time] 28.6 s Normal 25.0-35.0 [facility] Comment on above: Order Comment: No: [...] FOR THIS PURPOSE. Performed By: #### 1 0, 20156, 27286 #### [facility] [address] [place] [address], [facility] BASIC METABOLIC PANELon 05- Calcium [Mass/Vol] 8.3 mg/dL Low 8.6-10.3 [facility] Comment on above: Order Comment: No: D o not add to previous draw Performed By: #### 1 0, 50035, 86533 #### [facility] [address] [place] [address], [facility] Chloride [Moles/Vol] 108 mmol/L High 98-107 [facility] Comment on above: Order Comment: No: D o not add to previous draw Performed By: #### 1 0, 45938, 09798 #### [facility] [address] [place] [address], [place] CO2 [Moles/Vol] 23 mmol/L Normal 21-31 [facility] Comment on above: Order Comment: No: D o not add to previous draw Performed By: #### 1 0, 67388, 49657 #### [facility] [address] [place] [address], [place] Creatinine [Mass/Vol] 0.48 mg/dL Low 0.60-1.20 [facility] Comment on above: Order Comment: No: D o not add to previous draw Performed By: #### 1 0, 22825, 55446 #### [facility] [address] [place] [address], [place] GFR/1.73 sq M.predicted among blacks MDRD (S/P/Bld) [Vol rate/Area] mL/min/{1.73_m2} Normal >60 [facility] Comment on above: Order Comment: No: D o not add to previous draw Performed By: #### 1 0070, 34116, 90378 #### [facility] [address] [place] [address], [place] GFR/1.73 sq M.predicted among non-blacks MDRD (S/P/Bld) [Vol rate/Area] mL/min/{1.73_m2} Normal >60 [facility] Comment on above: Order Comment: No: D o not add to previous draw Performed By: #### 1 0, 04962, 00472 #### [facility] [address] [place] [address], [place] Glucose [Mass/Vol] 94 mg/dL Normal 70-100 [facility] Comment on above: Order Comment: No: D o not add to previous draw Performed By: #### 1 0, 76457, 42807 #### [facility] [address] [place] [address], [place] Potassium [Moles/Vol] 3.9 mmol/L Normal 3.5-5.1 [facility] Comment on above: Order Comment: No: D o not add to previous draw Performed By: #### 1 0, 15720, 47355 #### [facility] [address] [place] [address], [place] Sodium [Moles/Vol] 138 mmol/L Normal 136-145 [facility] Comment on above: Order Comment: No: D o not add to previous draw Performed By: #### 1 0, 59027, 09801 #### [facility] [address] [place] [address], [place] Urea nitrogen [Mass/Vol] 9 mg/dL Normal 7-25 [facility] Comment on above: Order Comment: No: D o not add to previous draw Performed By: #### 1 0070, 38679, 26442 #### [facility] [address] [place] [address], [facility] CBC W/DIFFon 11-05-2021 ABS IMM GRANS 0.0 10*3/uL Normal 0.0-0.2 The [facility] Comment on above: Order Comment: RLQ P ERIHEPATIC FLUID DRAINAGE Performed By: #### 3 0310 #### [facility] [address] [facility] [place] [address], [facility] ABS NEUTROPHILS 4.5 10*3/uL Normal 1.6-7.6 The [facility] Comment on above: Order Comment: RLQ P ERIHEPATIC FLUID DRAINAGE Performed By: #### 3 0310 #### [facility] [address] [place] [address], [facility] Basophils (Bld) [#/Vol] 0.0 10*3/uL Normal 0.0-0.2 [facility] Comment on above: Order Comment: RLQ P ERIHEPATIC FLUID DRAINAGE Performed By: #### 3 0310 #### [facility] [address] [place] [address], [facility] Basophils/100 WBC (Bld) 0.3 % Normal 0.0-1.0 [facility] Comment on above: Order Comment: RLQ P ERIHEPATIC FLUID DRAINAGE Performed By: #### 3 0310 #### [facility] [address] [place] [address], [facility] Eosinophils (Bld) [#/Vol] 0.1 10*3/uL Normal 0.0-0.5 [facility] Comment on above: Order Comment: RLQ P ERIHEPATIC FLUID DRAINAGE Performed By: #### 3 0310 #### [facility] [address] [place] [address], [facility] Eosinophils/100 WBC (Bld) 1.4 % Normal 0.0-6.0 [facility] Comment on above: Order Comment: RLQ P ERIHEPATIC FLUID DRAINAGE Performed By: #### 3 0310 #### [facility] [address] [place] [address], [facility] Erythrocyte distribution width (RBC) [Ratio] 14.0 % Normal 11.5-15.0 [facility] Comment on above: Order Comment: RLQ P ERIHEPATIC FLUID DRAINAGE Performed By: #### 3 0310 #### [facility] [address] [place] [address], [facility] Hematocrit (Bld) [Volume fraction] 27.2 % Low 36.0-45.0 [facility] Comment on above: Order Comment: RLQ P ERIHEPATIC FLUID DRAINAGE Performed By: #### 3 0310 #### [facility] [address] [place] [address], [facility] Hemoglobin (Bld) [Mass/Vol] 8.5 g/dL Low 12.0-15.0 [facility] Comment on above: Order Comment: RLQ P ERIHEPATIC FLUID DRAINAGE Performed By: #### 3 0310 #### [facility] [address] [place] [address], [facility] IMMATURE GRANS 0.5 % Normal 0.0-1.0 The [facility] Comment on above: Order Comment: RLQ P ERIHEPATIC FLUID DRAINAGE Performed By: #### 3 0310 #### [facility] [address] [place] [address], [place] Lymphocytes (Bld) [#/Vol] 1.3 10*3/uL Normal 1.2-4.0 [facility] Comment on above: Order Comment: RLQ P ERIHEPATIC FLUID DRAINAGE Performed By: #### 3 0310 #### [facility] [address] [place] [address], [facility] Lymphocytes/100 WBC (Bld) 20.5 % Normal 20.0-45.0 [facility] Comment on above: Order Comment: RLQ P ERIHEPATIC FLUID DRAINAGE Performed By: #### 3 0310 #### [facility] [address] [place] [address], [facility] MCH (RBC) [Entitic mass] 29.7 pg Normal 27.0-33.0 [facility] Comment on above: Order Comment: RLQ P ERIHEPATIC FLUID DRAINAGE Performed By: #### 3 0310 #### [facility] [address] [place] [address], [facility] MCHC (RBC) [Mass/Vol] 31.3 g/dL Low 32.0-35.0 [facility] Comment on above: Order Comment: RLQ P ERIHEPATIC FLUID DRAINAGE Performed By: #### 3 0310 #### [facility] [address] [place] [address], [facility] MCV (RBC) [Entitic vol] 95.1 fL Normal 82.0-98.0 [facility] Comment on above: Order Comment: RLQ P ERIHEPATIC FLUID DRAINAGE Performed By: #### 3 0310 #### [facility] [address] [facility] [place] [address], [facility] Monocytes (Bld) [#/Vol] 0.5 10*3/uL Normal 0.1-1.0 [facility] Comment on above: Order Comment: RLQ P ERIHEPATIC FLUID DRAINAGE Performed By: #### 3 0310 #### [facility] [address] [facility] [place] [id number], [facility] MONOS 7.3 % Normal 5.0-12.0 [facility] Comment on above: Order Comment: RLQ P ERIHEPATIC FLUID DRAINAGE Performed By: #### 3 0310 #### [facility] [address] [place] [address], [facility] Neutrophils/100 WBC (Bld) 70.0 % Normal 40.0-72.0 [facility] Comment on above: Order Comment: RLQ P ERIHEPATIC FLUID DRAINAGE Performed By: #### 3 0310 #### [facility] [address] [facility] [place] [address], [facility] Nucleated RBC/100 WBC (Bld) [Ratio] 0 % Normal 0-0 [facility] Comment on above: Order Comment: RLQ P ERIHEPATIC FLUID DRAINAGE Performed By: #### 3 0310 #### [facility] [address] [facility] [place] [address], [facility] PLAT CNT 497 10*3/uL High 150-400 The [facility] Comment on above: Order Comment: RLQ P ERIHEPATIC FLUID DRAINAGE Performed By: #### 3 0310 #### [facility] [address] [facility] [place] [address], [facility] RBC (Bld) [#/Vol] 2.86 10*6/uL Low 3.80-5.00 The [facility] Comment on above: Order Comment: RLQ P ERIHEPATIC FLUID DRAINAGE Performed By: #### 3 0310 #### [facility] [address] [facility] [place] [address], [facility] WBC (Bld) [#/Vol] 6.44 10*3/uL Normal 4.00-10.60 [facility] Comment on above: Order Comment: RLQ P ERIHEPATIC FLUID DRAINAGE Performed By: #### 3 0310 #### [facility] [address] [place], [place] [id number] [place] [address] DRAINAGE PERITONEAL [facility] Department of Radiology [address] [place] [address] Patient Name: JULIA QUISPE : 1970 Sex: F Age: Race: White Pt. Location: [address] [place] [address] Patient Status: I Ordered Date: 11/05/2021 6:55:00 [...] risks are acceptable. Consent was obtained. Timeout: [place] protocol timeout verification performed. MEDICATIONS: 2 mg [...] this time and was unsuccessful. A 10 [place] pigtail catheter was then placed and placement [...] inferior right hepatic lobe abscess. Approved by:Jose Anedrsen11/05/2021 1:21 PM. I, Caroline Escamilla,have reviewed the image(s) and agree with the findings in this report. Electronically signed: Caroline Escamilla. Transcribed by: [email or web address], User Resident: JOSE PUENTES Electronically Signed by: CAROLINE ESCAMILLA @ 11/05/2021 01:45 PM I personally read this/these film(s) with this resident Normal The [facility] Comment on above: Order Comment: Other , liver abscess posterior segment right lobe MAGNESIUM BLOODon 11-05-2021 Magnesium [Mass/Vol] 2.0 mg/dL Normal 1.9-2.7 [facility] Comment on above: Order Comment: No: D o not add to previous draw Performed By: #### 1 0070, 14780, 95101 #### [facility] [address] [place] [address], [facility] PHOSPHORUS BLOODon Phosphate [Mass/Vol] 3.7 mg/dL Normal 2.5-5.0 [facility] Comment on above: Order Comment: No: D o not add to previous draw Performed By: #### 1 0070, 67476, 40144 #### [facility] [address] [place] [address], [facility] POC SARS COV2 ANTIGEN NEGATI VEon 11-05-2021 POC SARS COV2 ANTIGEN NEG Negative Normal NEGATIVE [facility] Comment on above: Result Comment: Nega tive [...] antigen from SARS-CoV-2 in direct nasopharyngeal swab (IN CLASS SPECIAL EDUCATION TEACHER) specimens from individuals who are suspected of [...] Accreditation. Performed By: #### 3 2044 #### [address] [facility] [place], [place] [address] PROTHROMBIN TIMEon INR Coag (PPP) [Relative time] 1.14 {INR} Normal 0.91-1.16 [facility] Comment on above: Order Comment: No: [...] CHEST 1995;108:[id number]. Performed By: #### 1 0070, 38433, [address]4559 #### [address] PT Coag (PPP) [Time] 14.6 s Normal 12.3-14.8 [facility] Comment on above: Order Comment: No: D o not add to previous draw Result Comment: ALL RESULTS MUST BE INTERPRETED WITH RESPECT TO BLOOD DRAWING ARTIFACT OR DILUTION ERROR OF ANTICOAGULANT AT THE TIME OF SAMPLING. Performed By: #### 1 [id number], [id number], [id number] #### [address] US GALLBLADDERon 11-05-2021 US GALLBLADDER [facility] Department of Radiology [address] [place] [id number] Patient Name: JULIA QUISPE : 1970 Sex: F Age: Race: White Pt. Location: [id number] Patient Status: I Ordered Date: 11/05/2021 11:20:00 [...] sludge. Electronically signed: Vincent Raphael. Transcribed by: [email or web address], User Resident: Electronically Signed by: VINCENT RAPHAEL @ 11/05/2021 02:10 PM Normal [facility] Comment on above: Order Comment: Enlar gement CBC W/DIFFon 11-04-2021 ABS IMM GRANS 0.0 10*3/uL Normal 0.0-0.2 The [facility] Comment on above: Performed By: #### 8 5499 #### [facility] [address] [place] [address], [facility] ABS NEUTROPHILS 6.0 10*3/uL Normal 1.6-7.6 The [facility] Comment on above: Performed By: #### 8 5499 #### [facility] [address] [place] [address], [place] Basophils (Bld) [#/Vol] 0.0 10*3/uL Normal 0.0-0.2 The [facility] Comment on above: Performed By: #### 8 5499 #### [facility] [address] [place] [address], [place] Basophils/100 WBC (Bld) 0.4 % Normal 0.0-1.0 The [facility] Comment on above: Performed By: #### 8 5499 #### [facility] [address] [facility] [place] [address], [facility] Eosinophils (Bld) [#/Vol] 0.1 10*3/uL Normal 0.0-0.5 The [facility] Comment on above: Performed By: #### 8 5499 #### [facility] [address] [facility] [place] [address], [facility] Eosinophils/100 WBC (Bld) 1.2 % Normal 0.0-6.0 The [facility] Comment on above: Performed By: #### 8 5499 #### [facility] [address] [facility]. [address] Erythrocyte distribution width (RBC) [Ratio] 13.9 % Normal 11.5-15.0 The [facility] Comment on above: Performed By: #### 8 5499 #### [facility] [address] [facility] Hematocrit (Bld) [Volume fraction] 30.8 % Low 36.0-45.0 The [facility] Comment on above: Performed By: #### 8 5499 #### [facility] [address] [facility] Hemoglobin (Bld) [Mass/Vol] 9.8 g/dL Low 12.0-15.0 The [facility] Comment on above: Performed By: #### 8 5499 #### [facility] [address] [facility] [place] [address], [facility] IMMATURE GRANS 0.4 % Normal 0.0-1.0 The [facility] Comment on above: Performed By: #### 8 5499 #### [facility] [address] [place] [address], [facility] Lymphocytes (Bld) [#/Vol] 1.7 10*3/uL Normal 1.2-4.0 The [facility] Comment on above: Performed By: #### 8 5499 #### [facility] [address] [facility] [place] [address], [facility] Lymphocytes/100 WBC (Bld) 20.3 % Normal 20.0-45.0 The [facility] Comment on above: Performed By: #### 8 5499 #### [facility] [address] [facility] [place] [address], [facility] MCH (RBC) [Entitic mass] 30.1 pg Normal 27.0-33.0 The [facility] Comment on above: Performed By: #### 8 5499 #### [facility] [address] [facility]. [address] MCHC (RBC) [Mass/Vol] 31.8 g/dL Low 32.0-35.0 The [facility] Comment on above: Performed By: #### 8 5499 #### [facility] [address] [facility] [place] [address], [facility] MCV (RBC) [Entitic vol] 94.5 fL Normal 82.0-98.0 The [facility] Comment on above: Performed By: #### 8 5499 #### [facility] [address] [facility] [place] [address], [facility] Monocytes (Bld) [#/Vol] 0.6 10*3/uL Normal 0.1-1.0 The [facility] Comment on above: Performed By: #### 8 5499 #### [facility] [address] [place] [address], [facility] MONOS 6.6 % Normal 5.0-12.0 The [facility] Comment on above: Performed By: #### 8 5499 #### [facility] [address] [place] [address], [facility] Neutrophils/100 WBC (Bld) 71.1 % Normal 40.0-72.0 The [facility] Comment on above: Performed By: #### 8 5499 #### [facility] [address] [place] [address], [facility] Nucleated RBC/100 WBC (Bld) [Ratio] 0 % Normal 0-0 The [facility] Comment on above: Performed By: #### 8 5499 #### [facility] [address] [place] [address], [facility] PLAT CNT 611 10*3/uL High 150-400 The [facility] Comment on above: Performed By: #### 8 5499 #### [facility] [address] [facility] [place] [address], [facility] RBC (Bld) [#/Vol] 3.26 10*6/uL Low 3.80-5.00 [facility] Comment on above: Performed By: #### 8 5499 #### [facility] [address] [facility] [place] [address], [facility] WBC (Bld) [#/Vol] 8.43 10*3/uL Normal 4.00-10.60 The [facility] Comment on above: Performed By: #### 8 5499 #### [facility] [address] [facility] [place] [address], [facility] COMP METABOLIC PANELon 11-04 Albumin [Mass/Vol] 3.7 g/dL Normal 3.5-5.7 [facility] Comment on above: Performed By: #### 1 0070, 27550, 51028 #### [facility] [address] [facility] [place] [address], [facility] ALKALINE PHOSPH 131 IU/L High 34-104 The [facility] Comment on above: Performed By: #### 1 0070, 73009, 41718 #### [facility] [address] [place] [address], [facility] ALT [Catalytic activity/Vol] 99 U/L High 7-52 The [facility] Comment on above: Performed By: #### 1 0, 63627, 67163 #### [facility] [address] [place] [address], [place] AST [Catalytic activity/Vol] 38 U/L Normal 13-39 The [facility] Comment on above: Performed By: #### 1 0, 84082, 39153 #### [facility] [address] [place] [address], [place] Bilirubin [Mass/Vol] 0.7 mg/dL Normal 0.3-1.0 The [facility] Comment on above: Performed By: #### 1 0, 29466, 42189 #### [facility] [address] [place] [address], [place] Calcium [Mass/Vol] 9.2 mg/dL Normal 8.6-10.3 [facility] Comment on above: Performed By: #### 1 0, 07344, 83918 #### [facility] [address] [place] [address], [place] Chloride [Moles/Vol] 103 mmol/L Normal 98-107 The [facility] Comment on above: Performed By: #### 1 0, 34903, 12596 #### [facility] [address] [place] [address], [place] CO2 [Moles/Vol] 27 mmol/L Normal 21-31 [facility] Comment on above: Performed By: #### 1 0, 67736, 37804 #### [facility] [address] [place] [address], [place] Creatinine [Mass/Vol] 0.60 mg/dL Normal 0.60-1.20 The [facility] Comment on above: Performed By: #### 1 0, 50987, 58854 #### [facility] [address] [place] [address], [place] GFR/1.73 sq M.predicted among blacks MDRD (S/P/Bld) [Vol rate/Area] mL/min/{1.73_m2} Normal >60 The [facility] Comment on above: Performed By: #### 1 0, 96864, 80930 #### [facility] [address] [place] [address], [place] GFR/1.73 sq M.predicted among non-blacks MDRD (S/P/Bld) [Vol rate/Area] mL/min/{1.73_m2} Normal >60 The [facility] Comment on above: Performed By: #### 1 0, 89130, 80417 #### [facility] [address] [place] [address], [place] Glucose [Mass/Vol] 93 mg/dL Normal 70-100 The [facility] Comment on above: Performed By: #### 1 69, , 74930 #### [facility] [address] [place] [address], [place] Potassium [Moles/Vol] 4.2 mmol/L Normal 3.5-5.1 The [facility] Comment on above: Performed By: #### 1 69, 66535, 04370 #### [facility] [address] [place] [address], [place] Protein [Mass/Vol] 6.6 g/dL Normal 6.0-8.3 The [facility] Comment on above: Performed By: #### 1 69, 24614, 84581 #### [facility] [address] [place] [address], [place] Sodium [Moles/Vol] 139 mmol/L Normal 136-145 The [facility] Comment on above: Performed By: #### 1 69, 83250, 26398 #### [facility] [address] [place] [address], [place] Urea nitrogen [Mass/Vol] 12 mg/dL Normal 7-25 The [facility] Comment on above: Performed By: #### 1 0070, 48722, 61527 #### [address] [facility]BDOMEN AND PELVIS W IV CONTRAST [facility] Department of Radiology [address] [place] [id number] Patient Name: JULIA QUISPE : 1970 Sex: F Age: Race: White Pt. Location: [facility] Patient Status: E Ordered Date: [...] achievable. Electronically signed: Johann Saenz. Transcribed by: [email or web address], User Resident: Electronically Signed by: JOHANN SAENZ @ 11/04/2021 06:21 PM Normal The [facility] Comment on above: Order Comment: Retro peritoneal Mass/Abscess, post-appendectomy with MICHEAL drain LACTATE WITH REFLEXon 2021 Lactate [Moles/Vol] 1.3 mmol/L Normal .5-2.2 The [facility] Comment on above: Performed By: #### 1 0070, 73544, 54762 #### [facility] [address] [facility]. [address] LIPASE BLOODon 11-04-2021 LIPASE 265 Units/L High 11-82 The [facility] Comment on above: Performed By: #### 1 0070, 82767, 92371 #### [facility] [address] [facility] [place] [address], [facility] BASIC METABOLIC PANELon 05-0 Calcium [Mass/Vol] 8.6 mg/dL Normal 8.6-10.3 The [facility] Comment on above: Order Comment: No: D o not add to previous draw Performed By: #### 1 0070, 33847, 70244 #### [facility] [address] [place] [address], [place] Chloride [Moles/Vol] 103 mmol/L Normal 98-107 The [facility] Comment on above: Order Comment: No: D o not add to previous draw Performed By: #### 1 0070, 16301, 17142 #### [facility] [address] [place] [address], [place] CO2 [Moles/Vol] 28 mmol/L Normal 21-31 The [facility] Comment on above: Order Comment: No: D o not add to previous draw Performed By: #### 1 0, 19719, 58013 #### [facility] [address] [place] [address], [place] Creatinine [Mass/Vol] 0.61 mg/dL Normal 0.60-1.20 The [facility] Comment on above: Order Comment: No: D o not add to previous draw Performed By: #### 1 0, 26392, 57579 #### [facility] [address] [place] [address], [place] GFR/1.73 sq M.predicted among blacks MDRD (S/P/Bld) [Vol rate/Area] mL/min/{1.73_m2} Normal >60 The [facility] Comment on above: Order Comment: No: D o not add to previous draw Performed By: #### 1 0, 62792, 02584 #### [facility] [address] [place] [address], [place] GFR/1.73 sq M.predicted among non-blacks MDRD (S/P/Bld) [Vol rate/Area] mL/min/{1.73_m2} Normal >60 The [facility] Comment on above: Order Comment: No: D o not add to previous draw Performed By: #### 1 0070, 33183, 30826 #### [facility] [address] [place] [address], [place] Glucose [Mass/Vol] 101 mg/dL High 70-100 The [facility] Comment on above: Order Comment: No: D o not add to previous draw Performed By: #### 1 0, 74762, 81710 #### [facility] [address] [place] [address], [facility] Potassium [Moles/Vol] 4.0 mmol/L Normal 3.5-5.1 The [facility] Comment on above: Order Comment: No: D o not add to previous draw Performed By: #### 1 0, 94142, 53156 #### [facility] [address] [place] [address], [facility] Sodium [Moles/Vol] 136 mmol/L Normal 136-145 The [facility] Comment on above: Order Comment: No: D o not add to previous draw Performed By: #### 1 0, 10534, 90047 #### [facility] [address] [place] [address], [facility] Urea nitrogen [Mass/Vol] 11 mg/dL Normal 7-25 The [facility] Comment on above: Order Comment: No: D o not add to previous draw Performed By: #### 1 0, 27875, 33514 #### [facility] [address] [place] [address], [facility] CBC COMPLETE BLOOD COUNTon 0 - Erythrocyte distribution width (RBC) [Ratio] 14.7 % Normal 11.5-15.0 The [facility] Comment on above: Order Comment: RLQ P ERIHEPATIC FLUID DRAINAGE Performed By: #### 3 0310 #### [facility] [address] [place] [address], [facility] Hematocrit (Bld) [Volume fraction] 25.3 % Low 36.0-45.0 The [facility] Comment on above: Order Comment: RLQ P ERIHEPATIC FLUID DRAINAGE Performed By: #### 3 0310 #### [facility] [address] [place] [id number], [facility] Hemoglobin (Bld) [Mass/Vol] 8.0 g/dL Low 12.0-15.0 The [facility] Comment on above: Order Comment: RLQ P ERIHEPATIC FLUID DRAINAGE Performed By: #### 3 0310 #### [facility] [address] [place] [address], [facility] MCH (RBC) [Entitic mass] 30.2 pg Normal 27.0-33.0 The [facility] Comment on above: Order Comment: RLQ P ERIHEPATIC FLUID DRAINAGE Performed By: #### 3 0310 #### [facility] [address] [facility] [place] [address], [facility] MCHC (RBC) [Mass/Vol] 31.6 g/dL Low 32.0-35.0 The [facility] Comment on above: Order Comment: RLQ P ERIHEPATIC FLUID DRAINAGE Performed By: #### 3 0310 #### [facility] [address] [place] [address], [facility] MCV (RBC) [Entitic vol] 95.5 fL Normal 82.0-98.0 The [facility] Comment on above: Order Comment: RLQ P ERIHEPATIC FLUID DRAINAGE Performed By: #### 3 0310 #### [facility] [address] [place] [address], [facility] Nucleated RBC/100 WBC (Bld) [Ratio] 0 % Normal 0-0 The [facility] Comment on above: Order Comment: RLQ P ERIHEPATIC FLUID DRAINAGE Performed By: #### 3 0310 #### [facility] [address] [facility] [place] [id number], [facility] PLAT CNT 603 10*3/uL High 150-400 The [facility] Comment on above: Order Comment: RLQ P ERIHEPATIC FLUID DRAINAGE Performed By: #### 3 0310 #### [facility] [address] [place] [address], [place] RBC (Bld) [#/Vol] 2.65 10*6/uL Low 3.80-5.00 The [facility] Comment on above: Order Comment: RLQ P ERIHEPATIC FLUID DRAINAGE Performed By: #### 3 0310 #### [facility] [address] [place] [address], [facility] WBC (Bld) [#/Vol] 8.36 10*3/uL Normal 4.00-10.60 [facility] Comment on above: Order Comment: RLQ P ERIHEPATIC FLUID DRAINAGE Performed By: #### 3 0310 #### [facility] [address] [place] [address], [facility] MAGNESIUM BLOODon 10-28-2021 Magnesium [Mass/Vol] 2.0 mg/dL Normal 1.9-2.7 The [facility] Comment on above: Order Comment: No: D o not add to previous draw Performed By: #### 1 0070, 49583, 27992 #### [facility] [address] [place] [address], [facility] PHOSPHORUS BLOODon Phosphate [Mass/Vol] 3.5 mg/dL Normal 2.5-5.0 The [facility] Comment on above: Order Comment: No: D o not add to previous draw Performed By: #### 1 0070, 94212, 38740 #### [facility] [address] [place] [address], [facility] BASIC METABOLIC PANELon 05-0 Calcium [Mass/Vol] 8.6 mg/dL Normal 8.6-10.3 The [facility] Comment on above: Order Comment: No: D o not add to previous draw Performed By: #### 1 0070, 04278, 92204 ####[facility] [place] [address], [facility] Chloride [Moles/Vol] 102 mmol/L Normal 98-107 The [facility] Comment on above: Order Comment: No: D o not add to previous draw Performed By: #### 1 0, 83152, 29588 ####[facility] [place] [address], [facility] CO2 [Moles/Vol] 28 mmol/L Normal 21-31 [facility] Comment on above: Order Comment: No: D o not add to previous draw Performed By: #### 1 0, 74375, 32773 ####[facility] [place] [address], [facility] Creatinine [Mass/Vol] 0.52 mg/dL Low 0.60-1.20 [facility] Comment on above: Order Comment: No: D o not add to previous draw Performed By: #### 1 0, 07901, 95452 ####[facility] [place] [address], [facility] GFR/1.73 sq M.predicted among blacks MDRD (S/P/Bld) [Vol rate/Area] mL/min/{1.73_m2} Normal >60 [facility] Comment on above: Order Comment: No: D o not add to previous draw Performed By: #### 1 0, 88361, 43669 ####[facility] [place] [address], [facility] GFR/1.73 sq M.predicted among non-blacks MDRD (S/P/Bld) [Vol rate/Area] mL/min/{1.73_m2} Normal >60 The [facility] Comment on above: Order Comment: No: D o not add to previous draw Performed By: #### 1 0, 96252, 86659 ####[facility] [place] [address], [facility] Glucose [Mass/Vol] 95 mg/dL Normal 70-100 [facility] Comment on above: Order Comment: No: D o not add to previous draw Performed By: #### 1 0070, 84712, 22801 ####[facility] [place] [address], [facility] Potassium [Moles/Vol] 4.1 mmol/L Normal 3.5-5.1 The [facility] Comment on above: Order Comment: No: D o not add to previous draw Performed By: #### 1 0070, 35750, 48209 ####[facility] [place] [address], [facility] Sodium [Moles/Vol] 135 mmol/L Low 136-145 [facility] Comment on above: Order Comment: No: D o not add to previous draw Performed By: #### 1 0070, 06456, 35415 ####[facility] [place] [address], [facility] Urea nitrogen [Mass/Vol] 11 mg/dL Normal 7-25 [facility] Comment on above: Order Comment: No: D o not add to previous draw Performed By: #### 1 0, 13479, 67839 ####[facility] [place] [address], [facility] CBC COMPLETE BLOOD COUNTon 0 - Erythrocyte distribution width (RBC) [Ratio] 14.6 % Normal 11.5-15.0 The [facility] Comment on above: Order Comment: RLQ P ERIHEPATIC FLUID DRAINAGE Performed By: #### 3 0310 #### [facility] [address] [place] [id number], [facility] Hematocrit (Bld) [Volume fraction] 25.2 % Low 36.0-45.0 [facility] Comment on above: Order Comment: RLQ P ERIHEPATIC FLUID DRAINAGE Performed By: #### 3 0310 #### [facility] [address] [place] [address], [facility] Hemoglobin (Bld) [Mass/Vol] 7.9 g/dL Low 12.0-15.0 [facility] Comment on above: Order Comment: RLQ P ERIHEPATIC FLUID DRAINAGE Performed By: #### 3 0310 #### [facility] [address] [place] [address], [facility] MCH (RBC) [Entitic mass] 30.2 pg Normal 27.0-33.0 [facility] Comment on above: Order Comment: RLQ P ERIHEPATIC FLUID DRAINAGE Performed By: #### 3 0310 #### [facility] [address] MCHC (RBC) [Mass/Vol] 31.3 g/dL Low 32.0-35.0 [facility] Comment on above: Order Comment: RLQ P ERIHEPATIC FLUID DRAINAGE Performed By: #### 3 0310 #### [facility] [address] [place] [address], [facility] MCV (RBC) [Entitic vol] 96.2 fL Normal 82.0-98.0 [facility] Comment on above: Order Comment: RLQ P ERIHEPATIC FLUID DRAINAGE Performed By: #### 3 0310 #### [facility] [address] [facility] [address] Nucleated RBC/100 WBC (Bld) [Ratio] 0 % Normal 0-0 [facility] Comment on above: Order Comment: RLQ P ERIHEPATIC FLUID DRAINAGE Performed By: #### 3 0310 #### [facility] [address] [facility] [place] [address], [facility] PLAT CNT 660 10*3/uL High 150-400 The [facility] Comment on above: Order Comment: RLQ P ERIHEPATIC FLUID DRAINAGE Performed By: #### 3 0310 #### [facility] [address] [facility] [place] [address], [facility] RBC (Bld) [#/Vol] 2.62 10*6/uL Low 3.80-5.00 [facility] Comment on above: Order Comment: RLQ P ERIHEPATIC FLUID DRAINAGE Performed By: #### 3 0310 #### [facility] [address] [place] [address], [facility] WBC (Bld) [#/Vol] 8.42 10*3/uL Normal 4.00-10.60 [facility] Comment on above: Order Comment: RLQ P ERIHEPATIC FLUID DRAINAGE Performed By: #### 3 0310 #### [facility] [address] [place] [address], [facility] MAGNESIUM BLOODon 10-27-2021 Magnesium [Mass/Vol] 2.2 mg/dL Normal 1.9-2.7 The [facility] Comment on above: Order Comment: No: D o not add to previous draw Performed By: #### 1 0070, 96828, 50445 ####[facility] [place] [address], [facility] PHOSPHORUS BLOODon Phosphate [Mass/Vol] 3.4 mg/dL Normal 2.5-5.0 The [facility] Comment on above: Order Comment: No: D o not add to previous draw Performed By: #### 1 0070, 03879, 83055 #### [facility] [address] [place] [address], [facility] BASIC METABOLIC PANELon 05-0 Calcium [Mass/Vol] 8.4 mg/dL Low 8.6-10.3 The [facility] Comment on above: Order Comment: No: D o not add to previous draw Performed By: #### 8 3679 #### [facility] [address] [place] [address], [place] Chloride [Moles/Vol] 103 mmol/L Normal 98-107 [facility] Comment on above: Order Comment: No: D o not add to previous draw Performed By: #### 8 5499 #### [facility] [address] [place] [address], [place] CO2 [Moles/Vol] 26 mmol/L Normal 21-31 The [facility] Comment on above: Order Comment: No: D o not add to previous draw Performed By: #### 8 5499 #### [facility] [address] [place] [address], [facility] Creatinine [Mass/Vol] 0.58 mg/dL Low 0.60-1.20 [facility] Comment on above: Order Comment: No: D o not add to previous draw Performed By: #### 8 5499 #### [facility] [address] [place] [address], [place] GFR/1.73 sq M.predicted among blacks MDRD (S/P/Bld) [Vol rate/Area] mL/min/{1.73_m2} Normal >60 [facility] Comment on above: Order Comment: No: D o not add to previous draw Performed By: #### 8 5499 #### [facility] [address] [place] [address], [facility] GFR/1.73 sq M.predicted among non-blacks MDRD (S/P/Bld) [Vol rate/Area] mL/min/{1.73_m2} Normal >60 [facility] Comment on above: Order Comment: No: D o not add to previous draw Performed By: #### 8 5499 #### [facility] [address] [place] [address], [place] Glucose [Mass/Vol] 101 mg/dL High 70-100 [facility] Comment on above: Order Comment: No: D o not add to previous draw Performed By: #### 8 5499 #### [facility] [address] [place] [address], [place] Potassium [Moles/Vol] 4.2 mmol/L Normal 3.5-5.1 [facility] Comment on above: Order Comment: No: D o not add to previous draw Performed By: #### 8 5499 #### [facility] [address] [place] [address], [facility] Sodium [Moles/Vol] 133 mmol/L Low 136-145 The [facility] Comment on above: Order Comment: No: D o not add to previous draw Performed By: #### 8 5499 #### [facility] [address] [place] [id number], [facility] Urea nitrogen [Mass/Vol] 9 mg/dL Normal 7-25 [facility] Comment on above: Order Comment: No: D o not add to previous draw Performed By: #### 8 5499 #### [facility] [address] [facility] [address] CBC COMPLETE BLOOD COUNTon - Erythrocyte distribution width (RBC) [Ratio] 14.7 % Normal 11.5-15.0 [facility] Comment on above: Order Comment: No: D o not add to previous draw Performed By: #### 1 69, 40023, 87270 #### [facility] [address] [facility] [place] [address], [facility] Hematocrit (Bld) [Volume fraction] 24.1 % Low 36.0-45.0 [facility] Comment on above: Order Comment: No: D o not add to previous draw Performed By: #### 1 69, 41948, 64726 #### [facility] [address] [facility] [place] [address], [facility] Hemoglobin (Bld) [Mass/Vol] 7.7 g/dL Low 12.0-15.0 [facility] Comment on above: Order Comment: No: D o not add to previous draw Performed By: #### 1 69, 51963, 07261 #### [facility] [address] [place] [address], [facility] MCH (RBC) [Entitic mass] 29.8 pg Normal 27.0-33.0 [facility] Comment on above: Order Comment: No: D o not add to previous draw Performed By: #### 1 0070, 84190, 18723 #### [facility] [address] [place] [address], [facility] MCHC (RBC) [Mass/Vol] 32.0 g/dL Normal 32.0-35.0 [facility] Comment on above: Order Comment: No: D o not add to previous draw Performed By: #### 1 0, 33590, 05875 #### [facility] [address] [place] [address], [facility] MCV (RBC) [Entitic vol] 93.4 fL Normal 82.0-98.0 [facility] Comment on above: Order Comment: No: D o not add to previous draw Performed By: #### 1 0, 75283, 17974 #### [facility] [address] [facility] [place] [address], [facility] Nucleated RBC/100 WBC (Bld) [Ratio] 0 % Normal 0-0 [facility] Comment on above: Order Comment: No: D o not add to previous draw Performed By: #### 1 0, 01895, 69655 #### [facility] [address] [facility] [place] [address], [facility] PLAT CNT 604 10*3/uL High 150-400 The [facility] Comment on above: Order Comment: No: D o not add to previous draw Performed By: #### 1 0, 44075, 08966 #### [facility] [address] [facility] [place] [address], [facility] RBC (Bld) [#/Vol] 2.58 10*6/uL Low 3.80-5.00 The [facility] Comment on above: Order Comment: No: D o not add to previous draw Performed By: #### 1 0, 91044, 76106 #### [facility] [address] [place] [address], [place] WBC (Bld) [#/Vol] 9.58 10*3/uL Normal 4.00-10.60 [facility] Comment on above: Order Comment: No: D o not add to previous draw Performed By: #### 1 0, 83042, 15023 #### [facility] [address] [place] [address], [facility] MAGNESIUM BLOODon 10-26-2021 Magnesium [Mass/Vol] 2.3 mg/dL Normal 1.9-2.7 [facility] Comment on above: Order Comment: No: D o not add to previous draw Performed By: #### 8 5499 #### [facility] [address] [place] [address], [facility] PHOSPHORUS BLOODon Phosphate [Mass/Vol] 3.5 mg/dL Normal 2.5-5.0 [facility] Comment on above: Order Comment: No: D o not add to previous draw Performed By: #### 8 5499 #### [facility] [address] [place] [address], [facility] BASIC METABOLIC PANELon 05-0 Calcium [Mass/Vol] 8.1 mg/dL Low 8.6-10.3 [facility] Comment on above: Order Comment: No: D o not add to previous draw Performed By: #### 1 0, 75483, 96485 #### [facility] [address] [place] [address], [place] Chloride [Moles/Vol] 103 mmol/L Normal 98-107 [facility] Comment on above: Order Comment: No: D o not add to previous draw Performed By: #### 1 0, 81020, 94183 #### [facility] [address] [place] [address], [place] CO2 [Moles/Vol] 25 mmol/L Normal 21-31 The [facility] Comment on above: Order Comment: No: D o not add to previous draw Performed By: #### 1 0, 56820, 89965 #### [facility] [address] [place] [address], [place] Creatinine [Mass/Vol] 0.60 mg/dL Normal 0.60-1.20 [facility] Comment on above: Order Comment: No: D o not add to previous draw Performed By: #### 1 0, 74526, 16308 #### [facility] [address] [place] [address], [place] GFR/1.73 sq M.predicted among blacks MDRD (S/P/Bld) [Vol rate/Area] mL/min/{1.73_m2} Normal >60 [facility] Comment on above: Order Comment: No: D o not add to previous draw Performed By: #### 1 0, 31930, 71178 #### [facility] [address] [place] [address], [place] GFR/1.73 sq M.predicted among non-blacks MDRD (S/P/Bld) [Vol rate/Area] mL/min/{1.73_m2} Normal >60 [facility] Comment on above: Order Comment: No: D o not add to previous draw Performed By: #### 1 69, 06598, 71347 #### [facility] [address] [place] [address], [place] Glucose [Mass/Vol] 124 mg/dL High 70-100 [facility] Comment on above: Order Comment: No: D o not add to previous draw Performed By: #### 1 69, 20481, 17300 #### [facility] [address] [place] [address], [place] Potassium [Moles/Vol] 4.0 mmol/L Normal 3.5-5.1 [facility] Comment on above: Order Comment: No: D o not add to previous draw Performed By: #### 1 0, 46878, 97942 #### [facility] [address] [place] [address], [place] Sodium [Moles/Vol] 134 mmol/L Low 136-145 [facility] Comment on above: Order Comment: No: D o not add to previous draw Performed By: #### 1 0070, 63000, 12487 #### [facility] [address] Urea nitrogen [Mass/Vol] 8 mg/dL Normal 7-25 [facility] Comment on above: Order Comment: No: D o not add to previous draw Performed By: #### 1 0070, 53738, 65423 #### [facility] [address] CBC W/DIFFon 10-25-2021 ABS IMM GRANS 0.2 10*3/uL Normal 0.0-0.2 The [facility] Comment on above: Performed By: #### 3 0310 #### [facility] [address] ABS NEUTROPHILS 7.0 10*3/uL Normal 1.6-7.6 The [facility] Comment on above: Performed By: #### 3 0310 #### [facility] [address] [place] [address], [facility] Basophils (Bld) [#/Vol] 0.0 10*3/uL Normal 0.0-0.2 [facility] Comment on above: Performed By: #### 3 0310 #### [facility] [address] [place] [address], [facility] Basophils/100 WBC (Bld) 0.2 % Normal 0.0-1.0 [facility] Comment on above: Performed By: #### 3 0310 #### [facility] [address] [place] [address], [facility] Eosinophils (Bld) [#/Vol] 0.1 10*3/uL Normal 0.0-0.5 [facility] Comment on above: Performed By: #### 3 0310 #### [facility] [address] [place] [address], [facility] Eosinophils/100 WBC (Bld) 0.9 % Normal 0.0-6.0 [facility] Comment on above: Performed By: #### 3 0310 #### [facility] [address] [place] [address], [facility] Erythrocyte distribution width (RBC) [Ratio] 14.5 % Normal 11.5-15.0 [facility] Comment on above: Performed By: #### 3 0310 #### [facility] [address] [facility] [place] [address], [facility] Hematocrit (Bld) [Volume fraction] 23.5 % Low 36.0-45.0 [facility] Comment on above: Performed By: #### 3 0310 #### [facility] [address] [facility] [place] [address], [facility] Hemoglobin (Bld) [Mass/Vol] 7.9 g/dL Low 12.0-15.0 [facility] Comment on above: Performed By: #### 3 0310 #### [facility] [address] [facility] [place] [address], [facility] IMMATURE GRANS 2.6 % High 0.0-1.0 The [facility] Comment on above: Performed By: #### 3 0310 #### [facility] [address] [facility] [place] [address], [facility] Lymphocytes (Bld) [#/Vol] 1.2 10*3/uL Normal 1.2-4.0 [facility] Comment on above: Performed By: #### 3 0310 #### [facility] [address] [place] [address], [facility] Lymphocytes/100 WBC (Bld) 13.2 % Low 20.0-45.0 [facility] Comment on above: Performed By: #### 3 0310 #### [facility] [address] [facility] [place] [address], [facility] MCH (RBC) [Entitic mass] 31.0 pg Normal 27.0-33.0 [facility] Comment on above: Performed By: #### 3 0310 #### [facility] [address] [facility] [place] [address], [facility] MCHC (RBC) [Mass/Vol] 33.6 g/dL Normal 32.0-35.0 [facility] Comment on above: Performed By: #### 3 0310 #### [facility] [address] MCV (RBC) [Entitic vol] 92.2 fL Normal 82.0-98.0 [facility] Comment on above: Performed By: #### 3 0310 #### [facility] [address] [facility] [place] [address], [facility] Monocytes (Bld) [#/Vol] 0.6 10*3/uL Normal 0.1-1.0 [facility] Comment on above: Performed By: #### 3 0310 #### [facility] [address] MONOS 6.5 % Normal 5.0-12.0 [facility] Comment on above: Performed By: #### 3 0310 #### [facility] [address] [facility]. [address] Neutrophils/100 WBC (Bld) 76.6 % High 40.0-72.0 [facility] Comment on above: Performed By: #### 3 0310 #### [facility] [address] Nucleated RBC/100 WBC (Bld) [Ratio] 0 % Normal 0-0 [facility] Comment on above: Performed By: #### 3 0310 #### [facility] [address] PLAT CNT 586 10*3/uL High 150-400 The [facility] Comment on above: Performed By: #### 3 0310 #### [facility] [address] [facility] [place] [address], [facility] RBC (Bld) [#/Vol] 2.55 10*6/uL Low 3.80-5.00 The [facility] Comment on above: Performed By: #### 3 0310 #### [facility] [address] [facility] [place] [address], [facility] WBC (Bld) [#/Vol] 9.12 10*3/uL Normal 4.00-10.60 [facility] Comment on above: Performed By: #### 3 0310 #### [facility] [address] MAGNESIUM BLOODon 10-25-2021 Magnesium [Mass/Vol] 2.3 mg/dL Normal 1.9-2.7 [facility] Comment on above: Order Comment: No: D o not add to previous draw Performed By: #### 1 0070, 59398, 98260 #### [facility] [address] PHOSPHORUS BLOODon Phosphate [Mass/Vol] 3.8 mg/dL Normal 2.5-5.0 [facility] Comment on above: Order Comment: No: D o not add to previous draw Performed By: #### 1 0070, 95240, 93296 #### [facility] [address] *ANAEROBIC CULTUREon 022 *ANAEROBIC CULTURE Clinical Report: (C) Specimen: FLUID Collected: 10/24/2021 12:45 Status: Final Last Updated: 10/29/2021 07:44 (1) Post Surgical Abscess ISO (Final) ^No Anaerobes Isolated 5 Days Result changed by AVILA on 10/29/2021 07:44. The previous result was: ISO (Prelim) ^No strict anaerobes isolated to Date Normal [facility] Comment on above: Order Comment: Post Surgical Abscess Performed By: #### 8 5499 #### [facility] [address] *BODY FLUID CULTUREon 2021 *BODY FLUID CULTURE Clinical Report: (D) Specimen: FLUID Collected: 10/24/2021 12:45 Status: Final Last Updated: 10/26/2021 09:49 (1) Post Surgical Abscess GRAM (Final) Many Polys No Bacteria Seen ISO (Final) Escherichia coli Light Growth ISOLATE: Escherichia coli --- MILLICENT (mcg/ml) AMP./SULBAC (AMS) 4/2 Susceptible AMPICILLIN (AM) <=4 Susceptible AZTREONAM (AZM) <=2 Susceptible CEFAZOLIN (CZ) 4 Susceptible CEFTRIAXONE (COMPUTER EDUCATION TEACHER) <=1 Susceptible CIPROFLOXACIN (CIP) <=0.25 Susceptible ESBL (-/+) (ESBL) Negative GENTAMICIN (GM) <=2 Susceptible PIP/TAZO (TZP) <=2/4 Susceptible TOBRAMYCIN (TOB) <=2 Susceptible TRIMETH/SULFA (SXT) <=0.5/9.5 Susceptible Normal [facility] Comment on above: Order Comment: Post Surgical Abscess Performed By: #### 8 5499 #### [facility] [address] BASIC METABOLIC PANELon -3 Calcium [Mass/Vol] 8.2 mg/dL Low 8.6-10.3 [facility] Comment on above: Order Comment: No: D o not add to previous draw Performed By: #### 1 0070, 91830, 86625 #### [facility] [address] Chloride [Moles/Vol] 103 mmol/L Normal 98-107 [facility] Comment on above: Order Comment: No: D o not add to previous draw Performed By: #### 1 0, 50826, 61954 #### [facility] [address] [place] [address], [place] CO2 [Moles/Vol] 25 mmol/L Normal 21-31 [facility] Comment on above: Order Comment: No: D o not add to previous draw Performed By: #### 1 0, 33504, 65979 #### [facility] [address] [place] [address], [place] Creatinine [Mass/Vol] 0.49 mg/dL Low 0.60-1.20 [facility] Comment on above: Order Comment: No: D o not add to previous draw Performed By: #### 1 0, 91192, 75923 #### [facility] [address] [place] [address], [place] GFR/1.73 sq M.predicted among blacks MDRD (S/P/Bld) [Vol rate/Area] mL/min/{1.73_m2} Normal >60 [facility] Comment on above: Order Comment: No: D o not add to previous draw Performed By: #### 1 0, 69174, 43979 #### [facility] [address] [place] [address], [place] GFR/1.73 sq M.predicted among non-blacks MDRD (S/P/Bld) [Vol rate/Area] mL/min/{1.73_m2} Normal >60 [facility] Comment on above: Order Comment: No: D o not add to previous draw Performed By: #### 1 0, 05481, 46880 #### [facility] [address] [place] [address], [place] Glucose [Mass/Vol] 94 mg/dL Normal 70-100 [facility] Comment on above: Order Comment: No: D o not add to previous draw Performed By: #### 1 0, 11416, 49163 #### [facility] [address] [place] [address], [facility] Potassium [Moles/Vol] 4.3 mmol/L Normal 3.5-5.1 [facility] Comment on above: Order Comment: No: D o not add to previous draw Performed By: #### 1 0070, 41316, 18800 #### [facility] [address] [place] [address], [facility] Sodium [Moles/Vol] 134 mmol/L Low 136-145 [facility] Comment on above: Order Comment: No: D o not add to previous draw Performed By: #### 1 0070, 62748, 84532 #### [facility] [address] [place] [id number], [facility] Urea nitrogen [Mass/Vol] 8 mg/dL Normal 7-25 [facility] Comment on above: Order Comment: No: D o not add to previous draw Performed By: #### 1 0070, 97261, 22299 #### [facility] [address] [place] [address], [facility] C REACTIVE PROTEINon 022 CRP [Mass/Vol] 136.0 mg/L High 0.0-7.0 The [facility] Comment on above: Order Comment: No: D o not add to previous draw Performed By: #### 8 5499 #### [facility] [address] [place] [address], [facility] CALCIUM IONIZED CBGLon 10-24 IONIZED CALCIUM 1.22 mmol/L Normal 1.12-1.30 The [facility] Comment on above: Performed By: #### 8 5499 #### [facility] [address] [place] [address], [facility] CBC COMPLETE BLOOD COUNTon 0 10-24-2021 Erythrocyte distribution width (RBC) [Ratio] 14.5 % Normal 11.5-15.0 [facility] Comment on above: Order Comment: RLQ P ERIHEPATIC FLUID DRAINAGE Performed By: #### 3 0310 #### [facility] [address] [place] [address], [facility] Hematocrit (Bld) [Volume fraction] 22.8 % Low 36.0-45.0 [facility] Comment on above: Order Comment: RLQ P ERIHEPATIC FLUID DRAINAGE Performed By: #### 3 0310 #### [facility] [address] [place] [address], [facility] Hemoglobin (Bld) [Mass/Vol] 7.5 g/dL Low 12.0-15.0 [facility] Comment on above: Order Comment: RLQ P ERIHEPATIC FLUID DRAINAGE Performed By: #### 3 0310 #### [facility] [address] [place] [address], [facility] MCH (RBC) [Entitic mass] 30.5 pg Normal 27.0-33.0 [facility] Comment on above: Order Comment: RLQ P ERIHEPATIC FLUID DRAINAGE Performed By: #### 3 0310 #### [facility] [address] [place] [address], [facility] MCHC (RBC) [Mass/Vol] 32.9 g/dL Normal 32.0-35.0 [facility] Comment on above: Order Comment: RLQ P ERIHEPATIC FLUID DRAINAGE Performed By: #### 3 0310 #### [facility] [address] [place] [id number], [facility] MCV (RBC) [Entitic vol] 92.7 fL Normal 82.0-98.0 [facility] Comment on above: Order Comment: RLQ P ERIHEPATIC FLUID DRAINAGE Performed By: #### 3 0310 #### [facility] [address] [place] [id number], [facility] Nucleated RBC/100 WBC (Bld) [Ratio] 0 % Normal 0-0 [facility] Comment on above: Order Comment: RLQ P ERIHEPATIC FLUID DRAINAGE Performed By: #### 3 0310 #### [facility] [address] [place] [address], [place] PLAT CNT 522 10*3/uL High 150-400 [facility] Comment on above: Order Comment: RLQ P ERIHEPATIC FLUID DRAINAGE Performed By: #### 3 0310 #### [facility] [address] [place] [address], [place] RBC (Bld) [#/Vol] 2.46 10*6/uL Low 3.80-5.00 [facility] Comment on above: Order Comment: RLQ P ERIHEPATIC FLUID DRAINAGE Performed By: #### 3 0310 #### [facility] [address] [place] [address], [place] WBC (Bld) [#/Vol] 12.81 10*3/uL High 4.00-10.60 [facility] Comment on above: Order Comment: RLQ P ERIHEPATIC FLUID DRAINAGE Performed By: #### 3 0310 #### [facility] [address] [place] [address], [facility] LIVER BATTERYon 10-24-2021 Albumin [Mass/Vol] 2.8 g/dL Low 3.5-5.7 [facility] Comment on above: Order Comment: No: D o not add to previous draw Performed By: #### 1 0070, 31616, 10438 #### [facility] [address] [place] [id number], [facility] ALKALINE PHOSPH 149 IU/L High 34-104 [facility] Comment on above: Order Comment: No: D o not add to previous draw Performed By: #### 1 0070, 32894, 29215 #### [facility] [address] [place] [address], [facility] ALT [Catalytic activity/Vol] 55 U/L High 7-52 [facility] Comment on above: Order Comment: No: D o not add to previous draw Performed By: #### 1 0, 64289, 14658 #### [facility] [address] [place] [address], [place] AST [Catalytic activity/Vol] 38 U/L Normal 13-39 [facility] Comment on above: Order Comment: No: D o not add to previous draw Performed By: #### 1 0, 05920, 34672 #### [facility] [address] [place] [address], [place] Bilirubin [Mass/Vol] 2.9 mg/dL High 0.3-1.0 [facility] Comment on above: Order Comment: No: D o not add to previous draw Performed By: #### 1 0, 17787, 89160 #### [facility] [address] [place] [address], [place] Bilirubin.direct [Mass/Vol] 1.7 mg/dL High 0.0-0.2 [facility] Comment on above: Order Comment: No: D o not add to previous draw Performed By: #### 1 0, 63275, 02634 #### [facility] [address] [place] [address], [place] Protein [Mass/Vol] 5.6 g/dL Low 6.0-8.3 [facility] Comment on above: Order Comment: No: D o not add to previous draw Performed By: #### 1 0, 23671, 58572 #### [facility] [address] [place] [address], [place] MAGNESIUM BLOODon 10-24-2021 Magnesium [Mass/Vol] 2.1 mg/dL Normal 1.9-2.7 [facility] Comment on above: Order Comment: No: D o not add to previous draw Performed By: #### 1 0, 42639, 62297 #### [facility] [address] [place] [address], [place] PHOSPHORUS BLOODon Phosphate [Mass/Vol] 3.6 mg/dL Normal 2.5-5.0 [facility] Comment on above: Order Comment: No: D o not add to previous draw Performed By: #### 1 0, 76595, 13663 #### [facility] [address] [place] [address], [facility] POC GLUCOSE LABon 10-24-2021 Glucose [Mass/Vol] 101 mg/dL High 70-100 [facility] Comment on above: Performed By: #### 8 5499 #### [facility] [address] [place] [address], [place] Glucose [Mass/Vol] 107 mg/dL High 70-100 [facility] Comment on above: Performed By: #### 8 5499 #### [facility] [address] [place] [address], [place] Glucose [Mass/Vol] 114 mg/dL High 70-100 [facility] Comment on above: Performed By: #### 8 5499 #### [facility] [address] [place] [address], [facility] PREALBUMINon 10-24-2021 Prealbumin [Mass/Vol] 12.6 mg/dL Low 17.0-34.0 [facility] Comment on above: Order Comment: No: D o not add to previous draw Performed By: #### 1 69, 77442, 89942 #### [facility] [address] [place] [address], [place] TRIGLYCERIDES BLOODon 2021 Triglyceride [Mass/Vol] 122 mg/dL Normal 40-149 [facility] Comment on above: Order Comment: No: D o not add to previous draw Result Comment: TRIG LYCERIDE REFERENCE RANGE: 20 YEARS AND OLDER CARDIOVASCULAR RISK LESS THAN 150 mg/dl LOW RISK 150 TO 199 mg/dl BORDERLINE RISK 200 mg/dl AND GREATER HIGH RISK Performed By: #### 1 0, 54311, 49084 #### [facility] [address] APTTon 10-23-2021 aPTT Coag (Bld) [Time] 26.1 s Normal 25.0-35.0 [facility] Comment on above: Result Comment: ALL [...] PURPOSE. Performed By: #### 8 5499 #### [facility] [address] [facility] [address] BASIC METABOLIC PANELon 09-26 Calcium [Mass/Vol] 8.3 mg/dL Low 8.6-10.3 [facility] Comment on above: Order Comment: No: D o not add to previous draw Performed By: #### 1 0070, 93953, 55114 #### [facility] [address] [facility] [place] [address], [facility] Chloride [Moles/Vol] 102 mmol/L Normal 98-107 [facility] Comment on above: Order Comment: No: D o not add to previous draw Performed By: #### 1 0, 35406, 95721 #### [facility] [address] [facility] [place] [address], [facility] CO2 [Moles/Vol] 26 mmol/L Normal 21-31 [facility] Comment on above: Order Comment: No: D o not add to previous draw Performed By: #### 1 0070, 57427, 00258 #### [facility] [address] [facility] [place] [address], [facility] Creatinine [Mass/Vol] 0.43 mg/dL Low 0.60-1.20 [facility] Comment on above: Order Comment: No: D o not add to previous draw Performed By: #### 1 0070, 98850, 93322 #### [facility] [address] [place] [address], [place] GFR/1.73 sq M.predicted among blacks MDRD (S/P/Bld) [Vol rate/Area] mL/min/{1.73_m2} Normal >60 [facility] Comment on above: Order Comment: No: D o not add to previous draw Performed By: #### 1 0, 18689, 55837 #### [facility] [address] [place] [address], [place] GFR/1.73 sq M.predicted among non-blacks MDRD (S/P/Bld) [Vol rate/Area] mL/min/{1.73_m2} Normal >60 [facility] Comment on above: Order Comment: No: D o not add to previous draw Performed By: #### 1 69, 44992, 23414 #### [facility] [address] [place] [address], [place] Glucose [Mass/Vol] 100 mg/dL Normal 70-100 [facility] Comment on above: Order Comment: No: D o not add to previous draw Performed By: #### 1 69, 15068, 61389 #### [facility] [address] [place] [address], [place] Potassium [Moles/Vol] 3.3 mmol/L Low 3.5-5.1 [facility] Comment on above: Order Comment: No: D o not add to previous draw Performed By: #### 1 0, 89952, 80856 #### [facility] [address] [place] [address], [place] Sodium [Moles/Vol] 135 mmol/L Low 136-145 [facility] Comment on above: Order Comment: No: D o not add to previous draw Performed By: #### 1 0, 58038, 97964 #### [facility] [address] Urea nitrogen [Mass/Vol] 8 mg/dL Normal 7-25 [facility] Comment on above: Order Comment: No: D o not add to previous draw Performed By: #### 1 0070, 53608, 13475 #### [facility] [address] [place] [address], [facility] CBC W/DIFFon 10-23-2021 ABS IMM GRANS 0.4 10*3/uL High 0.0-0.2 [facility] Comment on above: Order Comment: RLQ P ERIHEPATIC FLUID DRAINAGE Performed By: #### 3 0310 #### [facility] [address] [facility] [place] [address], [facility] ABS NEUTROPHILS 12.4 10*3/uL High 1.6-7.6 [facility] Comment on above: Order Comment: RLQ P ERIHEPATIC FLUID DRAINAGE Performed By: #### 3 0310 #### [facility] [address] [place] [address], [facility] Basophils (Bld) [#/Vol] 0.0 10*3/uL Normal 0.0-0.2 [facility] Comment on above: Order Comment: RLQ P ERIHEPATIC FLUID DRAINAGE Performed By: #### 3 0310 #### [facility] [address] [facility] [place] [address], [facility] Basophils/100 WBC (Bld) 0.2 % Normal 0.0-1.0 [facility] Comment on above: Order Comment: RLQ P ERIHEPATIC FLUID DRAINAGE Performed By: #### 3 0310 #### [facility] [address] [facility] [place] [address], [facility] Eosinophils (Bld) [#/Vol] 0.1 10*3/uL Normal 0.0-0.5 [facility] Comment on above: Order Comment: RLQ P ERIHEPATIC FLUID DRAINAGE Performed By: #### 3 0310 #### [facility] [address] [place] [address], [facility] Eosinophils/100 WBC (Bld) 0.5 % Normal 0.0-6.0 [facility] Comment on above: Order Comment: RLQ P ERIHEPATIC FLUID DRAINAGE Performed By: #### 3 0310 #### [facility] [address] [place] [address], [facility] Erythrocyte distribution width (RBC) [Ratio] 14.0 % Normal 11.5-15.0 [facility] Comment on above: Order Comment: RLQ P ERIHEPATIC FLUID DRAINAGE Performed By: #### 3 0310 #### [facility] [address] [facility] [place] [address], [facility] Hematocrit (Bld) [Volume fraction] 23.5 % Low 36.0-45.0 [facility] Comment on above: Order Comment: RLQ P ERIHEPATIC FLUID DRAINAGE Performed By: #### 3 0310 #### [facility] [address] [place] [address], [facility] Hemoglobin (Bld) [Mass/Vol] 7.5 g/dL Low 12.0-15.0 [facility] Comment on above: Order Comment: RLQ P ERIHEPATIC FLUID DRAINAGE Performed By: #### 3 0310 #### [facility] [address] [place] [address], [facility] IMMATURE GRANS 2.6 % High 0.0-1.0 [facility] Comment on above: Order Comment: RLQ P ERIHEPATIC FLUID DRAINAGE Performed By: #### 3 0310 #### [facility] [address] [place] [address], [facility] Lymphocytes (Bld) [#/Vol] 1.7 10*3/uL Normal 1.2-4.0 [facility] Comment on above: Order Comment: RLQ P ERIHEPATIC FLUID DRAINAGE Performed By: #### 3 0310 #### [facility] [address] [place] [address], [facility] Lymphocytes/100 WBC (Bld) 10.9 % Low 20.0-45.0 [facility] Comment on above: Order Comment: RLQ P ERIHEPATIC FLUID DRAINAGE Performed By: #### 3 0310 #### [facility] [address] [place] [id number], [facility] MCH (RBC) [Entitic mass] 30.2 pg Normal 27.0-33.0 [facility] Comment on above: Order Comment: RLQ P ERIHEPATIC FLUID DRAINAGE Performed By: #### 3 0310 #### [facility] [address] [place] [address], [facility] MCHC (RBC) [Mass/Vol] 31.9 g/dL Low 32.0-35.0 [facility] Comment on above: Order Comment: RLQ P ERIHEPATIC FLUID DRAINAGE Performed By: #### 3 0310 #### [facility] [address] [place] [address], [facility] MCV (RBC) [Entitic vol] 94.8 fL Normal 82.0-98.0 [facility] Comment on above: Order Comment: RLQ P ERIHEPATIC FLUID DRAINAGE Performed By: #### 3 0310 #### [facility] [address] [place] [address], [facility] Monocytes (Bld) [#/Vol] 0.9 10*3/uL Normal 0.1-1.0 [facility] Comment on above: Order Comment: RLQ P ERIHEPATIC FLUID DRAINAGE Performed By: #### 3 0310 #### [facility] [address] [place] [id number], [facility] MONOS 5.7 % Normal 5.0-12.0 [facility] Comment on above: Order Comment: RLQ P ERIHEPATIC FLUID DRAINAGE Performed By: #### 3 0310 #### [facility] [address] [place] [address], [facility] Neutrophils/100 WBC (Bld) 80.1 % High 40.0-72.0 [facility] Comment on above: Order Comment: RLQ P ERIHEPATIC FLUID DRAINAGE Performed By: #### 3 0310 #### [facility] [address] [facility] [place] [address], [facility] Nucleated RBC/100 WBC (Bld) [Ratio] 0 % Normal 0-0 [facility] Comment on above: Order Comment: RLQ P ERIHEPATIC FLUID DRAINAGE Performed By: #### 3 0310 #### [facility] [address] [facility] [place] [address], [facility] PLAT CNT 521 10*3/uL High 150-400 The [facility] Comment on above: Order Comment: RLQ P ERIHEPATIC FLUID DRAINAGE Performed By: #### 3 0310 #### [facility] [address] [facility] [place] [address], [facility] RBC (Bld) [#/Vol] 2.48 10*6/uL Low 3.80-5.00 The [facility] Comment on above: Order Comment: RLQ P ERIHEPATIC FLUID DRAINAGE Performed By: #### 3 0310 #### [facility] [address] [facility] [place] [address], [facility] WBC (Bld) [#/Vol] 15.45 10*3/uL High 4.00-10.60 [facility] Comment on above: Order Comment: RLQ P ERIHEPATIC FLUID DRAINAGE Performed By: #### 3 0310 #### [facility] [address] [place], [place] [id number] [place] [address] CT ABDOMEN AND PELVIS W ORAL CONTRASTon 10-23-2021 CT ABDOMEN AND PELVIS W ORAL CONTRAST [facility] Department of Radiology [address] [place] [id number] Patient Name: JULIA QUISPE : 1970 Sex: F Age: Race: White Pt. Location: [id number] Patient Status: I Ordered Date: 10/23/2021 4:05:00 [...] atelectasis, favored over mild pneumonia There is [id number] pericardial effusion Close follow-up is suggested to [...] structu (more content not included)... Normal [facility] Comment on above: Order Comment: Fluid Collection, distinguish colon from abscess for IR drain MAGNESIUM BLOODon 10-23-2021 Magnesium [Mass/Vol] 2.1 mg/dL Normal 1.9-2.7 [facility] Comment on above: Order Comment: No: D o not add to previous draw Performed By: #### 1 0070, 64615, 20382 #### [facility] [address] [facility] [address] PHOSPHORUS BLOODon 2 Phosphate [Mass/Vol] 2.6 mg/dL Normal 2.5-5.0 [facility] Comment on above: Order Comment: No: D o not add to previous draw Performed By: #### 1 0070, 73646, 62363 #### [facility] [address] [facility] [address] PROTHROMBIN TIMEon 2 INR Coag (PPP) [Relative time] 1.07 {INR} Normal 0.91-1.16 [facility] Comment on above: Order Comment: No: [...] 1995;[id number]. Performed By: #### 8 5499 #### [facility] [address] [facility] PT Coag (PPP) [Time] 13.9 s Normal 12.3-14.8 [facility] Comment on above: Order Comment: No: D o not add to previous draw Result Comment: ALL RESULTS MUST BE INTERPRETED WITH RESPECT TO BLOOD DRAWING ARTIFACT OR DILUTION ERROR OF ANTICOAGULANT AT THE TIME OF SAMPLING. Performed By: #### 8 5499 #### [facility] [address] Cardiovascular Lab Reporton 07-23-2021 Cardiovascular Lab Report [facility] Patient Name: Julia Quispe MR #: [id number] Physician: Josias Ruiz MD Service Date: 07/21/2021 Department of Birthdate: 1970 Medicine Room #: CC Division of Cardiology Adult Cardiovascular Services [facility] [place] [place] [address] [place] [address] Cardiovascular Laboratory Report EP STUDY AND AVNRT [...] t (more content not included)... Normal [facility] BASIC METABOLIC PANELon 06-28 Calcium [Mass/Vol] 9.3 mg/dL Normal 8.6-10.3 [facility] Comment on above: Performed By: #### 1 0070, 31878, 11804 #### [facility] [address] [place] [address], [facility] Chloride [Moles/Vol] 109 mmol/L High 98-107 [facility] Comment on above: Performed By: #### 1 0070, 23248, 16343 #### [facility] [address] [place] [address], [place] CO2 [Moles/Vol] 23 mmol/L Normal 21-31 The [facility] Comment on above: Performed By: #### 1 0070, 29089, 51518 #### [facility] [address] [place] [address], [place] Creatinine [Mass/Vol] 0.87 mg/dL Normal 0.60-1.20 [facility] Comment on above: Performed By: #### 1 0070, 08665, 16953 #### [facility] [address] [place] [address], [place] GFR/1.73 sq M.predicted among blacks MDRD (S/P/Bld) [Vol rate/Area] mL/min/{1.73_m2} Normal >60 [facility] Comment on above: Performed By: #### 1 0, 85041, 94449 #### [facility] [address] [place] [address], [facility] GFR/1.73 sq M.predicted among non-blacks MDRD (S/P/Bld) [Vol rate/Area] mL/min/{1.73_m2} Normal >60 [facility] Comment on above: Performed By: #### 1 0, 93637, 14250 #### [facility] [address] [place] [address], [facility] Glucose [Mass/Vol] 97 mg/dL Normal 70-100 [facility] Comment on above: Performed By: #### 1 0, 11902, 97219 #### [facility] [address] [facility] [place] [place] [address], [facility] Potassium [Moles/Vol] 5.0 mmol/L Normal 3.5-5.1 [facility] Comment on above: Performed By: #### 1 69, 67805, 82632 #### [facility] [address] [place] [address], [place] Sodium [Moles/Vol] 140 mmol/L Normal 136-145 [facility] Comment on above: Performed By: #### 1 0, 43274, 71563 #### [facility] [address] [place] [address], [place] Urea nitrogen [Mass/Vol] 20 mg/dL Normal 7-25 [facility] Comment on above: Performed By: #### 1 0, 38121, 84169 #### [facility] [address] [place] [address], [place] CBC W/DIFFon 07-21-2021 ABS IMM GRANS 0.0 10*3/uL Normal 0.0-0.2 The [facility] Comment on above: Performed By: #### 3 0310 #### [facility] [address] [place] [address], [facility] ABS NEUTROPHILS 7.4 10*3/uL Normal 1.6-7.6 The [facility] Comment on above: Performed By: #### 3 0310 #### [facility] [address] [place] [address], [facility] Basophils (Bld) [#/Vol] 0.1 10*3/uL Normal 0.0-0.2 The [facility] Comment on above: Performed By: #### 3 0310 #### [facility] [address] [place] [address], [facility] Basophils/100 WBC (Bld) 0.5 % Normal 0.0-1.0 The [facility] Comment on above: Performed By: #### 3 0310 #### [facility] [address] [place] [address], [facility] Eosinophils (Bld) [#/Vol] 0.2 10*3/uL Normal 0.0-0.5 [facility] Comment on above: Performed By: #### 3 0310 #### [facility] [address] [place] [address], [place] Eosinophils/100 WBC (Bld) 1.6 % Normal 0.0-6.0 [facility] Comment on above: Performed By: #### 3 0310 #### [facility] [address] [place] [address], [facility] Erythrocyte distribution width (RBC) [Ratio] 13.7 % Normal 11.5-15.0 [facility] Comment on above: Performed By: #### 3 0310 #### [facility] [address] [place] [address], [facility] Hematocrit (Bld) [Volume fraction] 44.8 % Normal 36.0-45.0 [facility] Comment on above: Performed By: #### 3 0310 #### [facility] [address] [facility] [place] [address], [facility] Hemoglobin (Bld) [Mass/Vol] 14.7 g/dL Normal 12.0-15.0 [facility] Comment on above: Performed By: #### 3 0310 #### [facility] [address] [facility] [place] [address], [facility] IMMATURE GRANS 0.2 % Normal 0.0-1.0 The [facility] Comment on above: Performed By: #### 3 0310 #### [facility] [address] [facility] [place] [address], [facility] Lymphocytes (Bld) [#/Vol] 1.7 10*3/uL Normal 1.2-4.0 The [facility] Comment on above: Performed By: #### 3 0310 #### [facility] [address] [facility] [place] [address], [facility] Lymphocytes/100 WBC (Bld) 17.2 % Low 20.0-45.0 The [facility] Comment on above: Performed By: #### 3 0310 #### [facility] [address] [facility] [place] [address], [facility] MCH (RBC) [Entitic mass] 32.3 pg Normal 27.0-33.0 The [facility] Comment on above: Performed By: #### 3 0310 #### [facility] [address] [facility] [place] [address], [facility] MCHC (RBC) [Mass/Vol] 32.8 g/dL Normal 32.0-35.0 The [facility] Comment on above: Performed By: #### 3 0310 #### [facility] [address] [facility] [place] [address], [facility] MCV (RBC) [Entitic vol] 98.5 fL High 82.0-98.0 [facility] Comment on above: Performed By: #### 3 0310 #### [facility] [address] [facility] [place] [address], [facility] Monocytes (Bld) [#/Vol] 0.6 10*3/uL Normal 0.1-1.0 [facility] Comment on above: Performed By: #### 3 0310 #### [facility] [address] [place] [address], [facility] MONOS 6.1 % Normal 5.0-12.0 [facility] [facility] Comment on above: Performed By: #### 3 0310 #### [facility] [address] [place] [address], [facility] Neutrophils/100 WBC (Bld) 74.4 % High 40.0-72.0 [facility] Comment on above: Performed By: #### 3 0310 #### [facility] [address] [place] [address], [facility] Nucleated RBC/100 WBC (Bld) [Ratio] 0 % Normal 0-0 [facility] Comment on above: Performed By: #### 3 0310 #### [facility] [address] [place] [address], [facility] PLAT [address] 291 10*3/uL Normal 150-400 The [facility] Comment on above: Performed By: #### 3 0310 #### [facility] [address] [place] [address], [facility] RBC (Bld) [#/Vol] 4.55 10*6/uL Normal 3.80-5.00 The [facility] Comment on above: Performed By: #### 3 0310 #### [facility] [address] [place] [address], [facility] WBC (Bld) [#/Vol] 9.92 10*3/uL Normal 4.00-10.60 [facility] Comment on above: Performed By: #### 3 0310 #### [facility] [address] EW[address]INA. [address] Vital Signs Date Time Vital Sign Value Performing Clinician Facility 08-02-2023 15:42-0500 Body mass index (BMI) [Ratio] 26.57 kg/m2 Winsome Alvin DO Work Phone: [facility] 08-02-2023 15:42-0500 Body weight 68.04 kg Winsome Alvin DO Work Phone: [facility] 08-02-2023 15:42-0500 Diastolic blood pressure 80 mm[Hg] Winsome Alvin DO Work Phone: [facility] 08-02-2023 15:42-0500 Systolic blood pressure 138 mm[Hg] Winsome Alvin DO Work Phone: [facility] 12-06-2022 15:30-0400 Body height 162.56 cm Liliane Zavala Other [facility] Other 12-06-2022 15:30-0400 Body mass index (BMI) [Ratio] 21.28 kg/m2 Liliane Zavala Other [facility] Other 12-06-2022 15:30-0400 Body weight 56.25 kg Liliane Zaavla Other [facility] Other 12-06-2022 15:30-0400 Diastolic blood pressure 83 mm[Hg] Liliane Zavala Other [facility] Other 12-06-2022 15:30-0400 Systolic blood pressure 141 mm[Hg] Liliane Zavala Other [facility] Other 10-27-2022 11:30-0400 Body height 162.56 cm Liliane Zavala Other [facility] Other 10-27-2022 11:30-0400 Body mass index (BMI) [Ratio] 21.28 kg/m2 Liliane Zavala Other [facility] Other 10-27-2022 11:30-0400 Body weight 56.25 kg Liliane Zavala Other [facility] Other 10-27-2022 11:30-0400 Diastolic blood pressure 84 mm[Hg] Liliane Zavala Other [facility] Other 10-27-2022 11:30-0400 SaO2% (BldA) [Mass fraction] 97 % Liliane Zavala Other [facility] Other 10-27-2022 11:30-0400 Systolic blood pressure 120 mm[Hg] Liliane Zavala Other [facility] Other Encounters Encounter Date Encounter Type Care Provider Facility Start: 03-27-2024 End: 03-27-2024 ambulatory WINSOME ALVIN Not Available Start: 03-07-2024 End: 03-07-2024 ambulatory WINSOME ALVIN Not Available Start: 03-01-2024 End: 03-01-2024 ambulatory MD Liliane Zavala Work Phone: [facility] Work Phone: Start: 03-01-2024 End: 03-01-2024 Patient encounter procedure MD Liliane Zavala Work Phone: [facility] Work Phone: Start: 02-14-2024 End: 02-14-2024 ambulatory MD Liliane Zavala Work Phone: [facility] Work Phone: Start: 02-14-2024 End: 02-14-2024 Patient encounter procedure MD Liliane Zavala Work Phone: [facility] [address] Work Phone: Start: 01-10-2024 End: 01-10-2024 ambulatory WINSOME ALVIN Not Available Start: 12-06-2023 End: 12-06-2023 ambulatory MD Liliane Zavala Work Phone: [facility] Work Phone: Start: 12-06-2023 End: 12-06-2023 Patient encounter procedure MD Liliane Zavala Work Phone: [facility] [address] Work Phone: Start: 10-25-2023 End: 10-25-2023 ambulatory WINSOME ALVIN Not Available Start: 09-29-2023 End: 09-29-2023 ambulatory MD Liliane Zavala Work Phone: [facility] Work Phone: Start: 09-29-2023 End: 09-29-2023 Patient encounter procedure MD Liliane Zavala Work Phone: [facility] [address] Work Phone: Start: 09-16-2023 End: 09-16-2023 ambulatory MD Liliane Zavala Work Phone: [facility] Work Phone: Start: 09-16-2023 End: 09-16-2023 Patient encounter procedure MD Liliane Zavala Work Phone: [facility] [address] Work Phone: Start: 08-02-2023 End: 08-02-2023 Office outpatient visit 5 minutes Winsome Alvin DO Work Phone: [facility] Comment on above: Encounter for manage ment and injection of depo-Provera Start: 08-02-2023 End: 08-02-2023 ambulatory WINSOME ALVIN Not Available Start: 07-29-2023 End: 07-29-2023 ambulatory MD Liliane Zavala Work Phone: [facility] Work Phone: Start: 07-29-2023 End: 07-29-2023 Patient encounter procedure MD Liliane Zavala Work Phone: [facility] [address] Work Phone: Start: 07-25-2023 End: 07-25-2023 ambulatory WINSOME ESQUIVEL Not Available Start: 06-24-2023 End: 06-24-2023 ambulatory MD Liliane Zavala Work Phone: [facility] Work Phone: Start: 06-24-2023 End: 06-24-2023 Patient encounter procedure MD Liliane Zavala Work Phone: [facility] [address] Work Phone: Start: 06-22-2023 End: 06-22-2023 ambulatory Liliane Zavala Other [facility] Other Start: 06-22-2023 Telephone encounter Liliane Zaavla [facility] Start: 06-07-2023 End: 06-07-2023 ambulatory MD Liliane Zavala Work Phone: [facility] Work Phone: Start: 06-07-2023 End: 06-07-2023 Patient encounter procedure MD Liliane Zavala Work Phone: [facility] [address] Work Phone: Start: 05-24-2023 End: 05-24-2023 ambulatory MD iLliane Zavala Work Phone: [facility] Work Phone: Start: 05-24-2023 End: 05-24-2023 Patient encounter procedure MD Liliane Zavala Work Phone: [facility] [address] Work Phone: Start: 05-13-2023 End: 05-13-2023 ambulatory MD Liliane Zavala Work Phone: [facility] Work Phone: Start: 05-13-2023 End: 05-13-2023 Patient encounter procedure MD Liliane Zavala Work Phone: [facility] [address] Work Phone: Start: 05-10-2023 End: 05-10-2023 ambulatory WINSOME ESQUIVEL Not Available Start: 12-08-2022 End: 12-08-2022 ambulatory Liliane Zavala Other [facility] Other Start: 12-08-2022 Telephone encounter Liliane Zavala [facility] Start: 12-06-2022 End: 12-06-2022 ambulatory Liliane Zavala Other [facility] Other Start: 12-06-2022 Office outpatient vi sit 15 minutes Liliane Zavala [facility] Start: 10-27-2022 Office outpatient vi sit 15 minutes Liliane Zavala [facility] Start: 10-27-2022 End: 10-28-[address] LILIANE ZAVALA [facility] Other Start: 09-28-2022 ambulatory ALESHA TREVIÑO Facilit y:H1 Start: 05-07-2022 End: 05-08-[address] WINSOME ESQUIVEL . Facility: Start: 04-07-2022 Gynecological examin ation normal Liliane Zavala Other [facility] Other Start: 02-01-2022 End: 02-01-[address] WINSOME ESQUIVEL . Facility: Start: 11-05-2021 End: 11-07-2021 Evaluation and management of inpatient LILIANE ZAVALA Facility:[facility] Start: 10-23-2021 End: 10-28-2021 Evaluation and management of inpatient LILIANE ZAVALA Facility:[facility] Procedures Date Procedure Procedure Detail Performing Clinician Start: 03-01-2024 Plain X-ray of left elbow MD Liliane Zavala Work Phone: Start: 08-02-2023 Urine test visual color cmprsn meths Winsome Brushzio DO Work Phone: Start: 01-29-2022 Screening for malign ant neoplasm of breast Liliane Zavala Other End: 04-11-2018 Contraception care education Liliane Zavala Other End: 05-07-2021 Depression screening Liliane Zavala Other Plan of Treatment Date Care Activity Detail Author Start: 03-07-2024 End: 03-07-2024 Patient encounter procedure 03/07/2024 4:00 PM EDT Office Visit [facility] [address] [place] [address] Winsome Esquivel, DO [address] [place], [place] [id number] [facility] Start: 03-01-2024 Plain X-ray of left elbow XR elbow LT min 3V* [facility] Start: 03-01-2024 XR Elbow - left GE 3 Views [facility] Start: 10-25-2023 End: 10-25-2023 Clinical Support 10/25/2023 3:00 PM EDT Clinical Support [facility] [address] [place] [address] [facility] Payers Date Payer Category Payer Self-pay [id number] 2023 Worker's Compensation [id number] 2017 Unknown [id number] 1971 Unknown [id number] 2.16.8 40.1.238626.3.579.2.647 1971 Unknown [id number] 2.16.8 40.1.928582.3.579.2.647 1971 Unknown [id number] 2.16.84 0.1.478635.3.579.2.593 1971 Unknown [id number] 2.16.84 0.1.530522.3.579.2.593 1971 Unknown [id number] 2.16.84 0.1.032532.3.579.2.593 1971 Unknown [id number] 2.16.84 0.1.232055.3.579.2.593 1971 Unknown [id number] 2.16.84 0.1.423384.3.579.2.1259 1971 Unknown [id number] 2.16.84 0.1.427797.3.579.2.1259 1971 Unknown [id number] 2.16.84 0.1.984766.3.579.2.1259 1971 Unknown [id number] 2.16.84 0.1.863190.3.579.2.1259 1971 Unknown [id number] .16.84 0.1.317655.3.579.2.1259 1971 Unknown [id number] .16.84 0.1.180987.3.579.2.1259 1971 Unknown [id number] ..[id number]. 1.317181.3.579.2.1259 1959 Blue Cross Blue Shield [id number] 1959 Unknown [id number] 1959 Unknown [id number] Unknown [id number] 2.16.8 40.1.699438.3.579.2.531 Unknown [id number] .16.8 40.1.769775.3.579.2.531 Unknown [id number] .16.8 40.1.575427.3.579.2.531 Unknown [id number] 16.8 40.1.662978.3.579.2.531 Social History Date Type Detail Facility Unknown if ever smoked [facility] Other Start: 07-25-2023 Sex Assigned At N [facility] Other Start: 05-24-2021 Tobacco smoking status [facility] Current some day smoker [facility] Start: 1970 Sex Assigned At Female F [facility] Start: 12-06-2022 End: 01-06-2023 Tobacco smoking status NEIS Ex-smoker [facility] End: 10-11-2009 History of tobacco use Current smoker [facility] End: 10-11-2009 History of tobacco use Cigarette Smoker [facility] Start: 01-06-2023 Tobacco use and exposure Smokeless tobacco non-user [facility] Start: 08-02-2023 Alcohol intake Current drinke r of alcohol (finding) [facility] Start: 07-25-2023 History of Social function [facility] Start: 12-06-2022 Tobacco Comment 5-10 years sin ce last smoked [facility] Start: 12-06-2022 Alcohol Comment 3-4 drinks les s than monthly in the past year, Caffeine intake: 1-2 cups per day coffee [facility] Start: 11-30-2022 Gender identity Identifies as female gender (finding) [facility] Clinical Notes 09-25-2021 to 08-02-2023 Karolyn Santos [...] Karolyn Santos LPN documented in this encounter [facility] 10-27-2022 Evaluation note Encounter Date Diagnosis Assessment Notes October, Right calf pain (ICD-10 - M79.661) eval w d-dimer as she presently doesn't have symptoms October, Other fatigue (ICD-10 - R53.83) discussed differential - will get labs right now. Discussed sleep quality and regular routine. October, Trochanteric bursitis, right hip (ICD-10 - M70.61) Gave HO of specific stretches. [facility] Other 05-15-2022 NoteMR#: [id number] I [facility] Pt. Name: Julia Quispe Admitted: 11/04/2021 Discharged: [...] Tolentino CNP Date Trans: 11/07/2021 11:18 P/adrianna [id number] [facility]05-05-2022 NoteMR#: [id number] I [facility] Pt. Name: Julia Quispe Admitted: 10/23/2021 Discharged: 10/28/2021 Date of : 1970 Physician: Alejandrina Garza MD DISCHARGE SUMMARY PRINCIPAL DIAGNOSES: Abdominal abscess status post appendectomy on 10/14, and on 10/18, evacuation of hematoma done at outside hospital at [facility]. PROCEDURE PERFORMED: During this hospital stay was IR drain placed on 10/24 into the abdominal abscess. HOSPITAL COURSE: The patient is a 51-year-old female presented to the hospital for complaints of right lower quadrant pain. She recently underwent appendectomy on 10/14/2021 at [facility] and she was readmitted on Tuesday, 10/18 for right lower quadrant pain and she had a diagnostic laparoscopy for evacuation of hematoma on 10/19/2021 at [place]. She came back in for continued pain. [...] from me. Date Dict: 10/28/2021/03:51 P/Katie Tolentino CNP Date Trans: 10/29/2021 05:27 A/adrianna [id number] cc: No Beltran M.D. [address] [place] [address] A [facility] [id number] History general Narrative - Reported* Type Description Date Medical History SVT Medical History Factor 5 Surgical History Appendectomy 09/2021 [facility] Other Evaluation noteNort [facility] Other Evaluation noteNo InformationNort [facility] Other Evaluation noteNo assessment information available [facility] Work Phone: Evaluation note* Diagnosis Encounter for management and injection of depo-Provera [facility] Diagnosis Onset Date Resolution Status Lateral epicondylitis, left elbow acute [facility] Work Phone: History general [facility] Other History general Narrative - Reported* Type Description Date Medical History SVT Medical History Factor 5 Medical History Asthma Medical History Postmenopausal Medical History 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 Medical History Acute deep vein thro mbosis (DVT) of distal end of left lower extremity Surgical History Appendectomy 09/2021 Surgical History 2001,2003 Surgical History WRIST Hospitalization History SEE SURGICAL HX [facility] Other Summary Purpose Family History No Family History Records Found Relationship Condition Age at Onset Recorded Date/T dianne Not Specified Heart disease Unknown Relationship Condition Age at Onset Recorded Date/T dianen mother Heart disease Unknown Advance Directives No [...] M77.12 M77.12 M77.12 Chief Complaint M77.12 M77.12 [facility] DOI 05/12/23 LT ELBOW M77.12 - Lateral epicondylitis, left elbow Reason for Visit Lateral epicondyliti s, left elbow Additional Source Comments INFORMATION SOURCE (unrecogn ized section and content) DATE CREATED AUTHOR 01/15/2022 [facility] DATE CREATED AUTHOR AUTHOR'S ORGANIZ ATION 03/06/2022 [facility] DATE CREATED AUTHOR AUTHOR'S ORGANIZ ATION 11/04/2022 [facility] DATE CREATED AUTHOR AUTHOR'S ORGANIZ ATION 03/03/2024 [facility] DATE CREATED AUTHOR AUTHOR'S ORGANIZ ATION 03/29/2024 [facility] EPIC REASON FOR VISIT (unrecogniz ed section and content) Reason Comments Contraception Depo injection Care Teams (unrecognized sec tion and content) Team Status: Active Member Role Status Dates Liliane Zavala MD Primary Care Provider Active Team Status: Inactive Member Role Status Dates Liliane Zavala MD Primary Care Provider Active Adriane Rausch APRN Attending Provider Active Nnp Relationship Specialty Start Date End Date Liliane Zavala MD [facility] [place] [address] PCP - General Family Medicine 01/06/23 Team [...] 2023 Team Status: Inactive Member Role Status Ida Zavala MD Primary Care Provider Active Start: September 29, 2023 End: September 29, 2023 Adriane Rausch APRN Attending Provider Active Start: September 29, 2023 End: September 29, 2023 Team Status: Inactive Member Role Status Ida Zavala MD Primary Care Provider Active Start: December 06, 2023 End: December 06, 2023 Adriane Rausch APRN Attending Provider Active Start: December 06, 2023 End: December 06, 2023 Team Status: Inactive Member Role Status Ida Zavala MD Primary Care Provider Active Start: February 14, 2024 End: February 14, 2024 Adriane Rausch APRN Attending Provider Active Start: February 14, 2024 End: February 14, 2024 Team Status: Inactive Member Role Status Ida Zavala MD Primary Care Provider Active Start: March 01, 2024 End: March 01, 2024 Pasha Kinney DO Attending Provider Active St art: March 01, 2024 End: March 01, 2024 Team Status: Active Member Role Status Ida Zavala MD Primary Care Provider Active Start: [...] BE BASED ON THE PRIMARY CLINICAL RECORDS. [facility] [employer] [facility]. provides no warranty or guarantee of the accuracy or completeness of information in this document.
--- NOTE | 2024-04-12 15:25 | MM_ITS ---
Patient Name: LISA QUISPE MR#: [id number] : 1970 Exam Date: 04/12/2024 Ordering Doctor: DR Luis Angel Esquivel . RADIOLOGY REPORT PROCEDURE: MM TOMOSYNTHESIS SCREENING BI COMPARISON: MG MAMM SCREEN 3D KATARINA CAD, 05/07/2022. INDICATIONS: Screening Calculator Name NCI Breast Cancer Risk Assessment Tool 5 Year Breast Cancer Risk 2.00% Lifetime Breast Cancer Risk 15.70% Personal Breast Cancer No Personal Ovarian Cancer No Treatments None Family Cancers None LOCATION: [facility] BREAST COMPOSITION: The breasts are heterogeneously dense,which may obscure small masses. FINDINGS: DIAGNOSTIC CATEGORY 2--BENIGN FINDING. NO CHANGE FROM COMPARISON. Scattered benign-appearing calcifications are present. Scattered benign-appearing lymph nodes are present. RIGHT BREAST: No significant suspicious finding. Stable micro clip marker lower inner quadrant, anterior breast LEFT BREAST: No significant suspicious finding. RECOMMENDATIONS: ROUTINE MAMMOGRAM AND CLINICAL EVALUATION IN 12 MONTHS. PLEASE NOTE: A NORMAL MAMMOGRAM DOES NOT EXCLUDE THE POSSIBILITY OF BREAST CANCER. A CLINICALLY SUSPICIOUS PALPABLE LUMP SHOULD BE BIOPSIED. Dictated by: Lacho Urias MD on 04/12/2024 at 16:27 Approved by: Lacho Urias MD on 04/12/2024 at 16:28
--- NOTE | 2024-04-12 15:25 | XR_ITS ---
The [address] [address] Patient Name: LISA QUISPE MRN: [id number] date: 1970 Sex: F Assigned Patient Location: [facility] Current Patient Location: Accession/Order Number: [id number] Exam Date: 04/12/2024 15:05 Report Date: 04/16/2024 07:31 At the request of: WINSOME PACE Procedure: XR DEXA axial skeleton EXAMINATION: XR DEXA axial skeleton, 04/12/2024 3:05 PM EDT HISTORY: Post Menopausal COMPARISON: TECHNIQUE: Dual-energy X-ray absorptiometry (DEXA) bone density study performed for the axial skeleton. FINDINGS: Bone mineral density lumbar spine L1-L4 measures 1.20 g/sq cm for T score 0.2. Normal. Lowest bone mineral density right femoral neck measures 0.853 g/cm per. T score -1.3. Osteopenia XR/XR DEXA axial skeleton IMPRESSION: Osteopenia. Moderate fracture risk Pharmacologic treatment recommendations * No uniform recommendation applies to all patients. Management plans must be individualized. * Consider initiating pharmacologic treatment in postmenopausal women and men >= 50 years of age who have the following: Primary fracture prevention: * T-score <= - 2.5 at the femoral neck, total hip, lumbar spine, 33% radius (some uncertainty with existing data) by DXA. * Low bone mass (osteopenia: T-score between - 1.0 and - 2.5) at the femoral neck or total hip by DXA with a 10-year hip fracture risk >= 3% or a 10-year major osteoporosis-related fracture risk >= 20% (i.e., clinical vertebral, hip, forearm, or proximal humerus) based on the US-adapted FRAXregistered model. Secondary fracture prevention: * Fracture of the hip or vertebra regardless of BMD [4, 5]. * Fracture of proximal humerus, pelvis, or distal forearm in persons with low bone mass (osteopenia: T-score between - 1.0 and - 2.5). The decision to treat should be individualized in persons with a fracture of the proximal humerus, pelvis, or distal forearm who do not have osteopenia or low BMD [12, 13]. Sophy MS, Josie SL, Hermes KL, Isaias EM, Ji KG, AJ, Madina ES. The clinician's guide to prevention and treatment of osteoporosis. Osteoporos Int. 2021;33(10):7285-9579. doi: 10.1007/y76275-596-53643-t. Epub 2021Oct 22. Erratum in: Osteoporos Int. 2021Jan 21;: PMID: [id number]; PMCID: [id number]. Electronically authenticated by: SEDA OSHEA Date: 04/16/2024 07:31
== END 2024-04-12 14:58 | disposition home or self-care (01) ==
LOC: RAD 14:57
PROVIDERS: PCP Family Medicine; Visit Provider Obstetrics & Gynecology
DX: Z12.31 Encounter for screening mammogram for malignant neoplasm of breast (principal); Z78.0 Asymptomatic menopausal state; M85.80 Other specified disorders of bone density and structure, unspecified site
CPT/HCPCS: 77063; 77067; 77080

== ENCOUNTER 2025-03-13 20:14 | Outpatient (REF) | payer BC, SELFPAY ==
--- OUTSIDE RECORDS SUMMARY | 2025-02-28 15:15 | XMS_ITS | Encounter Summary ---
Author Organization [facility] Address [address] [place] [address] Care Team Providers Care Sweat Box Attendant Name Role Phone Liliane Penn MD Primary Care Provider [phone] Encounter Details Date Type Department Care Team ([facility] st Contact Info) Description 02/28/2025 3:15 PM EDT Office Visit [facility] [address] [place] [phone] Aria Farooq DPM [address] [facility] [address] [place] [address] Ingrown toenail (Primary Dx); Pain of toe of right foot Social History Tobacco Use Types Packs/Day Years Used Date Smoking Tobacco: Former Cigarettes 1 15 Q uit: 10/11/2009 Smokeless Tobacco: Never Comments:5-10 years since [facility] smoked Alcohol Use Standard Drinks/Week Comments Yes 3 (1 standard drink = 0.6 oz pure alcohol) 3-4 drinks less than monthly in the past year, Caffeine intake: 1-2 cups per day coffee Comments No Sex and Gender Information Value Date Recorded Sex Assigned at Female 11/30/2022 4:35 PM EDT Legal Sex Female 6:48 PM EDT Gender Identity Female 11/30/2022 4:35 PM EDT Sexual Orientation Not on file documented as of this encounter Progress Notes * Aria Farooq DPM - 02/28/2025 3:15 PM EDT Images from the original note were not included. HPI: Ingrown Toenail under Podiatric consultations: Patient presents to the clinic c/o painful ingrown toenail on the right great toe. This has been present for the past 3 weeks. There is redness and/or drainage to the area. Patient has pain along theaffected nail border with shoe gear and pressure. Previous treatment consists of soaking, antibiotic cream. Patient has not had a prior nail procedure performed. She lost the nail due to fungus and trauma last year and it grew in and started to put pressure along the nail fold. No other complaints. Exam: General Examination: GENERAL APPEARANCE: awake, aware of surroundings, in no acute distress Vascular: DORSALIS PEDIS PULSE: 2/4, bilaterally POSTERIOR TIBIAL PULSE: 2/4, bilaterally TEMPERATURE GRADIENT: warm to cool EDEMA: to the medial right hallux CAPILLARY FILLING TIME(sec): capillary fill intact bilateral digits less than 3 secs Neurologic: NEUROLOGIC: light touch is intact to the plantar foot Dermatologic: SKIN FINDINGS: granuloma medial right hallux HYPERKERATOSIS: none NAIL PATHOLOGY: Nails 1-5 bilateral are intact. Incurvation noted to the medial border of the righthallux nail. There is pain noted with pressure at the medialnail fold. Erythema and edema is noted to the affected nail fold. Hypertrophy of the nail fold is present. No malodor noted SKIN PATHOLOGY: texture, turgor, hair growth, within normal limits Orthopedic: FOOT MORPHOLOGY: normal JOINT RANGE OF MOTION: normal ankle and subtalar joint and 1st MPJ ROM bilateral DEFORMITIES: none PAIN ELICITED WITH PALPATION OF: Overlying the site of ingrown toenail right hallux MUSCLE STRENGTH: 5/5 for all pedal groups tested Assessments: ICD L60.0 - Ingrowing Nail: ICD M79.671 - Pain in right foot: Treatment Note: Ingrown Toenail: Discussed with the patient the treatment options including temporary vs. Permenant nail procedure or local slantback. Slantback performed of the medial border, right hallux nail. Large nail spicule was removed and patient noted relief of pain. Antibiotic cream dressing was applied. Patient was instructed on home care with antibiotic cream and band-aid for the next few days. Instructed on the course of the nail regrowing possibility of permenant nail procedure if they continue to have pain/problems with it in the future. RTC: prn. documented in this encounter Plan of Treatment Upcoming Encounters Date Type Department Care Team (Late st Contact Info) Description 04/16/2025 3:30 PM EDT Office Visit [facility] [address] [place] [address] Aria Farooq DPM [address] [place] [address] 05/16/2025 3:00 PM EST Clinical Support REGINO COOL [address] [place] [phone] 03/17/2026 8:30 AM EDT Procedure Visit [facility] [address] [facility] [address] Luis Angel Esquivel, [address] [facility] [address] [place], [place] [phone] documented as of this encounter Visit Diagnoses Diagnosis Ingrown toenail- Primary Ingrowing nail Pain of toe of right foot documented in this encounter Care Teams Sweat Box Attendant Relationship Specialty Start Date End Date Liliane Penn MD [address] [place] [phone] PCP - General Family Medicine 01/06/23 documented as of this encounter
--- OUTSIDE RECORDS SUMMARY | 2025-03-13 15:00 | XMS_ITS | Encounter Summary ---
Author Organization [facility] Address [address] [place] [address] Care Team Providers Care Utility Arborist Name Role Phone Liliane Penn MD Primary Care Provider [phone] Reason for Visit * Reason Comments Gynecologic Exam Encounter Details Date Type Department Care Team (Late st Contact Info) Description 03/13/2025 3:00 PM EDT Office Visit [facility] [place] [facility] [address] [place] [address] Luis Angel Esquivel DO [address] [place], [facility] Well woman exam with routine gynecological exam; Encounter for screening mammogram for malignant neoplasm of breast; Postmenopausal state Social History Tobacco Use Types Packs/Day Years Used Date Smoking Tobacco: Former Cigarettes 1 15 Q uit: 10/11/2009 Smokeless Tobacco: Never Tobacco Cessation:Counseling Given: Not Answered Comments:5-10 years since last smoked Alcohol Use Standard Drinks/Week Comments Yes 3 (1 standard drink = 0.6 oz pure alcohol) 3-4 drinks less than monthly in the past year, Caffeine intake: 1-2 cups per day coffee Comments Unknown Sex and Gender Information Value Date Recorded Sex Assigned at Female 11/30/2022 4:35 PM EDT Legal Sex Female 6:48 PM EDT Gender Identity Female 11/30/2022 4:35 PM EDT Sexual Orientation Not on file documented as of this encounter Last Filed Vital Signs Vital Sign Reading Time Taken Comments Blood Pressure 142/92 03/13/2025 3:42 PM EDT Pulse - - Temperature - - Respiratory Rate - - Oxygen Saturation - - Inhaled Oxygen Concentration - - Weight 77.1 kg (170 lb) 03/13/2025 3:42 PM EDT Height - - Body Mass Index 30.11 01/10/2024 3:16 PM EDT documented in this encounter Progress Notes * Nikole Belcher, KAITLIN - 03/13/2025 3:00 PM EDT Reason for Appointment: Patient ID: Julia Stallworth is a 54 y.o. female who presents for Gynecologic Exam Patient presents today for Annual Exam. MEDICATIONS Current Outpatient Medications Medication Instructions calcium 200 MG tablet Calcium cetirizine (ZYRTEC) 10 mg, Oral, Daily cholecalciferol (Vitamin D-3) 25 MCG (1000 UT) capsule Vitamin D-3 medroxyPROGESTERone (DEPO-PROVERA) 150 mg, Intramuscular, Every 3 months ALLERGIES Allergies Allergen Reactions Codeine Hives Midazolam Hives Other Reaction(s): Not available midazolam PROBLEMS Active Ambulatory Problems Diagnosis Date Noted Well woman exam with routine gynecological exam 03/13/2025 Resolved Ambulatory Problems Diagnosis Date Noted No Resolved Ambulatory Problems Past Medical History: Diagnosis Date Abnormal Pap smear of cervix 1994? Asthma (HCC) BMI 23.0-23.9, adult Breast cancer screening by mammogram [facility] contraception Encounter for gynecological examination (general) (routine) without abnormal findings Factor 5 Leiden mutation, heterozygous (HHS-HCC) H/O blood clots Lower leg DVT (deep venous thromboembolism), acute, left (HCC) Menopause ovarian failure October 2022 Paroxysmal supraventricular tachycardia (HCC) Post menopausal syndrome Situational mixed anxiety and depressive disorder SVT (supraventricular tachycardia) (HCC) HISTORY PAST MEDICAL HISTORY SOCIAL HISTORY Past Medical History: Diagnosis Date Abnormal Pap smear of cervix 1994? Asthma (HCC) BMI 23.0-23.9, adult Breast cancer screening by mammogram [facility] contraception Encounter for gynecological examination (general) (routine) without abnormal findings Factor 5 Leiden mutation, heterozygous (HHS-HCC) H/O blood clots Lower leg DVT (deep venous thromboembolism), acute, left (HCC) Menopause ovarian failure October 2022 Paroxysmal supraventricular tachycardia (HCC) Post menopausal syndrome Situational mixed anxiety and depressive disorder SVT (supraventricular tachycardia) ([facility]) Social History Tobacco Use Smoking status: Former Current packs/day: 0.00 Average packs/day: 1 pack/day for 15.0 years (15.0 ttl pk-yrs) Types: Cigarettes Quit date: 10/11/2009 Years since quittin.4 Smokeless tobacco: Never Tobacco comments: 5-10 years since last smoked Substance Use Topics Alcohol use: Yes Alcohol/week: 3.0 standard drinks of alcohol Types: 3 Cans of beer per week Comment: 3-4 drinks less than monthly in the past year, Caffeine intake: 1-2 cups per day coffee Drug use: Never FAMILY HISTORY Family History Problem Relation Name Age of Onset COPD Mother Mardelle Atrial fibrillation Mother Mardelle Hypertension Mother Mardelle Heart disease Mother Mardelle Diabetes Maternal Grandmother Speideh aguilera SURGICAL HISTORY Past Surgical History: Procedure Laterality Date ABDOMINAL SURGERY 01/29/04 APPENDECTOMY 09/2021 SECTION, LOW TRANSVERSE x2 [address] GUIDED IMAGING FOR ABSCESS DRAIN 11/05/2021 CT GUIDED IMAGING FOR ABSCESS DRAIN LASIK 2010 OTHER SURGICAL HISTORY 1994 tendon laceration repair REVIEW OF SYSTEMS Review of Systems: Review of Systems Constitutional: Negative. HENT: Negative. Eyes: Negative. Respiratory: Negative. Cardiovascular: Negative. Gastrointestinal: Negative. Genitourinary: Negative. Musculoskeletal: Negative. Skin: Negative. Neurological: Negative. All other systems reviewed and are negative. Hematological: Negative. Endocrine: Negative. Allergic/Immunologic: Negative. OBJECTIVE Objective: Physical Exam Constitutional: Appearance: Normal appearance. She is well-developed. Genitourinary: Vulva normal. Breasts: Breasts are soft. Right: Normal. Left: Normal. Cardiovascular: Rate and Rhythm: Normal rate and regular rhythm. Pulmonary: Effort: Pulmonary effort is normal. Breath sounds: Normal breath sounds. Abdominal: General: Bowel sounds are normal. There is no distension. Palpations: Abdomen is soft. Tenderness: There is no abdominal tenderness. There is no guarding or rebound. Musculoskeletal: General: No swelling. Normal range of motion. Right lower leg: No edema. Left lower leg: No edema. Neurological: Mental Status: She is alert and oriented to person, place, and time. Skin: General: Skin is warm and dry. Psychiatric: Mood and Affect: Mood normal. Behavior: Behavior normal. Vitals and nursing note reviewed. Exam conducted with a bottom sander present. Vitals: Estimated body mass index is 30.11 kg/m?? as calculated from the following: Height as of 01/10/24: 5' 3 . Weight as of this encounter: 170 lb. BP: (!) 142/92 No LMP recorded. ASSESSMENT & PLAN ICD-10-CM 1. Well woman exam with routine gynecological exam Z01.419 Bilateral screening mammogram DEXA bone density THIN PREP TIS PAP AND HR HPV DNA Bilateral screening mammogram DEXA bone density 2. Encounter for screening mammogram for malignant neoplasm of breast Z12.31 Bilateral screening mammogram Bilateral screening mammogram 3. Postmenopausal state Z78.0 DEXA bone density DEXA bone density Orders Placed This Encounter Procedures Bilateral screening mammogram DEXA bone density Annual Wellness Exam: Patient presents today for routine annual exam. Patient states she has no current complaints. Patients vitals were reviewed and within normal limits. Growth and development is noted to be appropriate for age. No mental health concerns was expressed. Pap Smear: Speculum was inserted into the vagina and pap was obtained without difficulty. HPV testing was performed per age guideline. Patient was advised that pap results could take anywhere from 7 to 10 days to receive and our office will reach out to the patient with those once we have them. Patient can also view results via hopscout. I reinforced importance of condom use for STI prevention. Patient declined cultures to be performed with today's visit. Breast Exam: Upon examination, clinical breast exam was noted to be normal and screening mammogram was ordered and given to patient to have obtained. Patient was counseled on breast self-awareness, including the importance of knowing what is normal for her own breasts and promptly reporting any changes such as new lumps, skin dimpling, nipple discharge, or pain. Screening mammogram was recommended annually. Discussed signs and symptoms of breast cancer and when to seek medical attention. Answered all patient questions. DEXA Counseling: DEXA scan ordered and given to the patient to have performed for osteoporosis screening per guidelines. Patient counseled on bone health, including the importance of calcium and vitamin D intake, weight-bearing exercise, fall prevention, and avoiding tobacco and excessive alcohol. Discussed purposeof DEXA in assessing fracture risk and monitoring bone density. Patient advised results will be reviewed upon completion and next steps discussed as needed. Follow Up: Patient is to return to our office in one year for annual exam unless needed otherwise. Documented by Nikole Belcher LPN on behalf of: Luis Angel Esquivel DO documented in this encounter Plan of Treatment Upcoming Encounters Date Type Department Care Team (Late st Contact Info) Description 04/16/2025 3:30 PM EDT Office Visit [facility] [address] [place] [address] Aria Farooq DPAcosta [address] [place] [address] 05/16/2025 3:00 PM EST Clinical Support [facility] [address] [facility] [place] [phone] 03/17/2026 8:30 AM EDT Procedure Visit REGINO COOL [address] [place] [phone] Luis Angel Esquivel DO [address] [place], [place] [id number] Scheduled Orders Name Type Priority Associated Diagnoses Orde r Schedule Bilateral screening mammogram Imaging Routine Well woman exam with routine gynecological exam Encounter for screening mammogram for malignant neoplasm of breast Expected: 03/13/2025, Expires: 05/13/2026 DEXA bone density Imaging Routine Well woman exam with routine gynecological exam Postmenopausal state Expected: 03/13/2025 (Approximate), Expires: 03/13/2026 THIN PREP TIS PAP AND HR HPV DNA Pathology and Cytology Routine Well woman exam with routine gynecological exam Ordered: 03/13/2025 documented as of this encounter Visit Diagnoses Diagnosis Well woman exam with routine gynecological exam Routine gynecological examination Encounter for screening mammogram for malignant neoplasm of breast Postmenopausal state Asymptomatic postmenopausal status (age-related) (natural) documented in this encounter Care Teams Utility Arborist Relationship Specialty Start Date End Date Liliane Penn MD [address] [place] [phone] PCP - General Family Medicine 01/06/23 documented as of this encounter
--- OUTSIDE RECORDS SUMMARY | 2025-03-13 20:17 | XMS_ITS | Encounter Summary ---
Author Organization [facility] Address [address] [place] [address] Care Team Providers Care Mold Yard Crane Operator Name Role Phone Liliane Penn MD Primary Care Provider [phone] Encounter Details Date Type Department Care Team (Late Contact Info) Description 04/16/2024 Clinisync Result Encounter [facility] External Department Unsolicited Winsome Esquivel, DO [address] [facility] [place] [address] [place] [address] Social History Tobacco Use Types Packs/Day Years Used Date Smoking Tobacco: Former Cigarettes 1 15 Q uit: 10/11/2009 Smokeless Tobacco: Never Comments:5-10 years since [facility] smoked Alcohol Use Standard Drinks/Week Comments Yes [...] on file documented as of this encounter Plan of Treatment Upcoming Encounters Date Type Department Care Team (Late Contact Info) Description 04/16/2025 3:30 PM EDT Office Visit [facility] [place] [facility] [address] [place] [phone] Aria Farooq, DPAcosta [address] [place] [address] 05/16/2025 3:00 PM EST Clinical Support REGINO Yantic OBEdilberto [address] [place] [address] [place] [phone] 03/17/2026 8:30 AM EDT Procedure Visit REGINO COOL [address] [place] [address] [place] [address] Winsome Esquivel DO [address] [place] [address] Dr [address] [place], [facility] documented as of this encounter Procedures Procedure Name Priority Date/Time Associated Diagnosis Comments XR DEXA AXIAL SKELETON 04/16/2024 7:31 AM EDT documented in this encounter Results * XR DEXA AXIAL SKELETON (04/16/2024 7:31 AM EDT) Anatomical Region Laterality Modality Other 04/16/2024 7:31 AM EDT Narrative 04/16/2024 7:34 AM EDT The [address] [address] XRay Report Signed Patient: JULIA QUISPE MR#: [id number] : 1970 Acct:[id number] Age/Sex: 53 / F ADM Date: 04/12/24 Loc: RAD Attending Dr: Winsome Esquivel D.O. Ordering Physician: Winsome Esquivel D.O. Date of Service: 04/12/24 Procedure(s): XR DEXA axial skeleton Accession Number(s): [id number] cc: Liliane Penn M.D.; Winsome Esquivel D.O. The [address] [address] Patient Name: JULIA QUISPE MRN: [id number] date: 1970 Sex: F Assigned Patient Location: RAD Current Patient Location: Accession/Order Number: [id number] Exam Date: 04/12/2024 15:05 Report Date: 04/16/2024 07:31 At the request of: WINSOME ESQUIVEL Procedure: XR DEXA axial skeleton EXAMINATION: XR DEXA axial skeleton, 04/12/2024 3:05 PM EDT HISTORY: Post Menopausal COMPARISON: 2021, 16 TECHNIQUE: Dual-energy X-ray absorptiometry (DEXA) bone density study performed for the axial skeleton. FINDINGS: Bone mineral density lumbar spine L1-L4 measures 1.20 g/sq cm for T score 0.2. Normal. Lowest bone mineral density right femoral neck measures 0.853 g/cm per. T score -1.3. Osteopenia XR/XR DEXA axial skeleton IMPRESSION: Osteopenia. Moderate fracture risk Pharmacologic treatment recommendations * No uniform recommendation applies to all patients. Management plans must be individualized. * Consider initiating pharmacologic treatment in postmenopausal women and men >= 50 years of age who have the following: Primary fracture prevention: * T-score <= - 2.5 at the femoral neck, total hip, lumbar spine, 33% radius (some uncertainty with existing data) by DXA. * Low bone mass (osteopenia: T-score between - 1.0 and - 2.5) at the femoral neck or total hip by DXA with a 10-year hip fracture risk >= 3% or a 10-year major osteoporosis-related fracture risk >= 20% (i.e., clinical vertebral, hip, forearm, or proximal humerus) based on the [place]-adapted FRAXregistered model. Secondary fracture prevention: * Fracture of the hip or vertebra regardless of BMD [4, 5]. * Fracture of proximal humerus, pelvis, or distal forearm in persons with low bone mass (osteopenia: T-score between - 1.0 and - 2.5). The decision to treat should be individualized in persons with a fracture of the proximal humerus, pelvis, or distal forearm who do not have osteopenia or low BMD [12, 13]. Sophy MS, Josie SL, Hermes KL, Isaias EM, Ji KG, AJ, Madina ES. The clinician's guide to prevention and treatment of osteoporosis. Osteoporos Int. 2021;33(10):3191-3970. doi: 10.1007/h24733-727-46777-z. Epub 2021Oct 22. Erratum in: Osteoporos Int. 2021Jan 21;: PMID: 89254311; PMCID: [id number]. Electronically authenticated by: SEDA OSHEA Date: 04/16/2024 07:31 Dictated By: Seda Oshea M.D. Signed By: 04/16/2434 DD/ 0 TD/TT: Supervisor Testing: Procedure Note Radiology, Radiologist, MD - 04/16/2024 [place] [address] XRay Report Signed Patient: JULIA QUISPE RMR#: [id number] : 1970Acct:[id number] Age/Sex: 53 / FADM Date: 04/12/24 Loc: RAD Attending Dr: Winsome Esquivel D.O. Ordering Physician: Winsome Esquivel D.O. Date of Service: 04/12/24 Procedure(s): XR DEXA axial skeleton Accession Number(s): [id number] cc: Liliane Penn M.D.; Winsome Esquivel D.O. The [place] [id number] Patient Name: JULIA QUISPE MRN: [id number] date: 1970 Sex: F Assigned Patient Location: [facility] Current Patient Location: Accession/Order Number: [id number] Exam Date: 04/12/2024 15:05 Report Date: 04/16/2024 07:31 At the request of: WINSOME ESQUIVEL Procedure: XR DEXA axial skeleton EXAMINATION: XR DEXA axial skeleton, 04/12/2024 3:05 PM EDT HISTORY: Post Menopausal COMPARISON: 2021, 16 TECHNIQUE: Dual-energy X-ray absorptiometry (DEXA) bone density study performed for the axial skeleton. FINDINGS: Bone mineral density lumbar spine L1-L4 measures 1.20 g/sq cm for T score0.2. Normal. Lowest bone mineral density right femoral neck measures 0.853 g/cm per. T score -1.3. Osteopenia XR/XR DEXA axial skeleton IMPRESSION: Osteopenia. Moderate fracture risk Pharmacologic treatment recommendations * No uniform recommendation applies to all patients. Management plans mustbe individualized. * Consider initiating pharmacologic treatment in postmenopausal women andmen >= 50 years of age who have the following: Primary fracture prevention: * T-score <= - 2.5 at the femoral neck, total hip, lumbar spine, 33%radius (some uncertainty with existing data) by DXA. * Low bone mass (osteopenia: T-score between - 1.0 and - 2.5) at thefemoral neck or total hip by DXA with a 10-year hip fracture risk >= 3% or [id number] major osteoporosis-related fracture risk >= 20% (i.e., clinical vertebral, hip, forearm, or proximal humerus) based on the US-adapted FRAXregisteredmodel. Secondary fracture prevention: * Fracture of the hip or vertebra regardless of BMD [4, 5]. * Fracture of proximal humerus, pelvis, or distal forearm in persons withlow bone mass (osteopenia: T-score between - 1.0 and - 2.5). The decision totreat should be individualized in persons with a fracture of the proximalhumerus, pelvis, or distal forearm who do not have osteopenia or low BMD [12, 13]. Sophy MS, Josie SL, Hermes KL, Isaias EM, Ji KG, AJ,Madina ES. The clinician's guide to prevention and treatment of osteoporosis.Osteoporos Int. 2021;33(10):7931-8036. doi: 10.1007/[id number]-n. Ep. Erratum in: Osteoporos Int. 2021Jan 21;: PMID: 75146430; PMCID: [id number]. Electronically authenticated by: SEDA OSHEA Date: 04/16/2024 07:31 Dictated By: Seda Oshea M.D. Signed By:04/16/2434 DD/ 0 TD/TT: Supervisor Testing: [facility] DO [facility] Final Result documented in this encounter Visit Diagnoses Not on filedocumented in this encounter Care Teams Mold Yard Crane Operator Relationship Specialty Start Date End Date Liliane Penn MD [address] [place] [address] PCP - General Family Medicine 01/06/23 documented as of this encounter
--- OUTSIDE RECORDS SUMMARY | 2025-03-13 20:17 | XMS_ITS | Encounter Summary ---
Author Organization [facility] Address [address] [place] [address] Care Team Providers Care Burlap Man Name Role Phone Liliane Penn MD Primary Care Provider [phone] Encounter Details Date Type Department Care Team ([facility] st Contact Info) Description 02/14/2023 Abstract [facility] [address] [place] [address] Aramis Armendariz, CHELSEY [address] [place] [address] Social History Tobacco Use Types Packs/Day Years Used Date Smoking Tobacco: Former Cigarettes Q uit: 10/11/2009 Smokeless Tobacco: Never Comments:5-10 years since [facility] smoked Alcohol Use Standard Drinks/Week Comments Yes 0 (1 standard drink = 0.6 oz pure alcohol) 3-4 drinks less than monthly in the past year, Caffeine intake: 1-2 cups per day coffee Comments Unknown Sex and Gender Information Value Date Recorded Sex Assigned at Female 11/30/2022 4:35 PM EDT Legal Sex Female 6:48 PM EDT Gender Identity Female 11/30/2022 4:35 PM EDT Sexual Orientation Not on file COVID-19 Exposure Response Date Recorded In the last 10 days, have yo u been in contact with someone who was confirmed or suspected to have Coronavirus/COVID-19? No / Unsure 02/14/2023 5:47 AM EDT documented as of this encounter Plan of Treatment Upcoming Encounters Date Type Department Care Team (Late st Contact Info) Description 04/16/2025 3:30 PM EDT Office Visit [facility] [address] [place] [address] Aria Farooq DPM [address] [place] [address] 05/16/2025 3:00 PM EST Clinical Support [facility] [address] [facility] [place] [address] 03/17/2026 8:30 AM EDT Procedure Visit [facility] [address] [place] [address] Luis Angel Esquivel DO [address] [place], [place] [id number] documented as of this encounter Visit Diagnoses Not on filedocumented in this encounter Care Teams Burlap Man Relationship Specialty Start Date End Date Liliane Penn MD [address] [place] [address] PCP - General Family Medicine 01/06/23 documented as of this encounter
--- OUTSIDE RECORDS SUMMARY | 2025-03-13 20:17 | XMS_ITS | Encounter Summary ---
Author Organization [facility] Address [address] [place] [address] Care Team Providers Care Operations Specialist Name Role Phone Liliane Penn MD Primary Care Provider [phone] Encounter Details Date Type Department Care Team (Latest Contact Info) Description 02/28/2025 Travel Social History Tobacco Use Types Packs/Day Years Used Date Smoking Tobacco: Former Cigarettes 1 15 Q uit: 10/11/2009 Smokeless Tobacco: Never Comments:5-10 years since [facility] smoked Alcohol Use Standard Drinks/Week Comments Yes [...] Podiatry [address] [place] [address] Aria Farooq DPM [address] [place] [address] 05/16/2025 3:00 PM EST Clinical Support [facility] [address] [facility] [place] [address] 03/17/2026 8:30 AM EDT Procedure Visit [facility] [address] [facility] [place] [address] Luis Angel Esquivel DO [address] [facility] [address] [place], [place] [id number] documented as of this encounter Visit Diagnoses Not on filedocumented in this encounter Care Teams Operations Specialist Relationship Specialty Start Date End Date Liliane Penn MD [address] [facility] [place] [address] PCP - General Family Medicine 01/06/23 documented as of this encounter
--- OUTSIDE RECORDS SUMMARY | 2025-03-13 20:17 | XMS_ITS | Clinical Summary ---
Author Organization [facility] Address [address] [place] [address] Care Team Providers Care Showroom Consultant Name Role Phone Liliane Penn MD Primary Care Provider [phone] Kiran Freitas MD Unavailable Unavailabl e Josias Ruiz MD Unavailable Allergies Active Allergy Reactions Criticality Noted Date Comments Codeine 02/25/2022 Midazolam 02/25/2022 Medications medroxyPROGESTE Job (Depo-Provera) 150 mg/mL injection Inject into the shoulder, thigh, or buttocks every 3 (three) months. Active Active Problems Problem Noted Date Diagnosed Date Deep venous thrombosis of lower extremity 2019 Supraventricular tachycardia 09/12/2018 Family History Medical History Relation Name Comments Atrial fibrillation Father Atrial fibrillation Mother Relation Name Status Comments Father Mother Social History Tobacco Use Types Packs/Day Years Used Date Smoking Tobacco: Former Cigarettes 0 10/11/1994 - 10/11/2009 Smokeless Tobacco: Never Tobacco Cessation:Counseling Given: Not Answered Alcohol Use Standard Drinks/Week Comments Yes 0 (1 standard drink = 0.6 oz pur e alcohol) occasional [place] Safety & Environment Answer Date Rec orded Fear of Current or Ex-Partner Not on file Emotionally Abused Not on file 2023 Physically Abused Not on file 2023 Sexually Abused Not on file 2023 Physically or Sexually Abused Not on file Comments Unknown Sex and Gender Information Value Date Recorded Sex Assigned at Not on file Legal Sex Female 12:13 AM EDT Gender Identity Not on file Sexual Orientation Not on file Last Filed Vital Signs Vital Sign Reading Time Taken Comments Blood Pressure 117/76 02/25/2022 2:57 PM EDT Pulse 86 02/25/2022 2:57 PM EDT Temperature 37.2 C (98.9 F) 02/25/2022 2:56 PM EDT Respiratory Rate - - Oxygen Saturation 97% 07/07/2021 3:44 PM EST Inhaled Oxygen Concentration - - Weight 59.4 kg (131 lb) 02/25/2022 2:54 PM EDT Height 160 cm (5' 3 ) 02/25/2022 2:53 PM EDT Body Mass Index 23.21 02/25/2022 2:53 PM EDT Plan of Treatment Health Maintenance Due Date Last Done Comments CT Colonography 1971 Colonoscopy 1971 Colorectal Cancer Screening 1971 FIT-DNA 1971 FIT 1971 FOBT 1971 Sigmoidoscopy 1971 Depression Screening 1983 Hepatitis B Vaccines (1 of 3 - 19+ 3-dose series) 1990 Pap Smear 1992 Adult Tetanus 1993 Cervical Cancer Screening 2001 HPV/Cotest 2001 Mammogram 2011 Zoster Vaccines (1 of 2) 2021 Influenza Vaccine (#1) 2025 HIB Vaccines Aged Out No longer eligi ble based on patient's age to complete this topic HPV Vaccines Aged Out No longer eligi ble based on patient's age to complete this topic IPV Vaccines Aged Out No longer eligi ble based on patient's age to complete this topic Meningococcal B Vaccine Aged Out No l onger eligible based on patient's age to complete this topic Meningococcal Vaccine Aged Out No lilibeth cristiano eligible based on patient's age to complete this topic Pneumococcal Vaccine: Pediat rics (0 to 5 Years) and At-Risk Patients (6 to 64 Years) Aged Out No longer eligible b ased on patient's age to complete this topic Rotavirus Vaccines Aged Out No longer eligible based on patient's age to complete this topic Insurance [facility] Care Teams Showroom Consultant Relationship Specialty Start Date End Date Liliane Penn MD [address] [facility] [address] PCP - General 02/25/22 Kiran Freitas MD [address] [facility] [address] Surgeon General Surgery 02/25/22 Josias Ruiz MD [address] [facility] [address] [place] [address] Consulting Physician Cardiology 02/25/22
--- OUTSIDE RECORDS SUMMARY | 2025-03-13 20:17 | XMS_ITS | Clinical Summary ---
Author Organization [employer] [facility] tem Address [id number] [address] [place] [address] Care Team Providers Care Electronic Prepress Technician Name Role Phone Liliane Penn MD Primary Care Provider [phone] Social History Tobacco Use Types Packs/Day Years Used Date Smoking Tobacco: Never Assessed Comments Unknown Sex and Gender Information Value Date Recorded Sex Assigned at Not on file Legal Sex Female 1:32 PM EDT Gender Identity Not on file Sexual Orientation Not on file Plan of Treatment Health Maintenance Due Date Last Done Comments Depression Screening 1983 Tobacco Screening 1983 Adult BMI Screening 1989 DTaP,Tdap and Td Vaccines (1 - Tdap) 1990 Pap Smear 1992 Zoster (Shingles) Vaccine (1 of 2) 2021 Influenza Vaccine 02/25/2025 Medical Devices Not on file Care Teams Electronic Prepress Technician Relationship Specialty Start Date End Date Liliane Penn MD [address] [place] [address] PCP - General Family Medicine 10/15/21
--- OUTSIDE RECORDS SUMMARY | 2025-03-13 20:17 | XMS_ITS | Clinical Summary ---
Author Organization [facility] Address [address] [place] [address] Care Team Providers Care Tank Car Cleaner Name Role Phone Liliane Penn MD Primary Care Provider [phone] Allergies Active Allergy Reactions Criticality Noted Date Comments Codeine Hives 02/25/2022 Midazolam Hives 02/25/2022 Other Reaction(s): Not available midazolam Medications cholecalciferol (Vitamin D-3) 25 MCG (1000 UT) capsule Vitamin D-3 Active calcium 200 MG tablet Calcium Active cetirizine (ZyrTEC) 5 MG tablet Take 10 mg by mouth Daily Active medroxyPROGESTE Job (Depo-Provera) 150 MG/ML suspension prefilled syringe injection syringeIndicati ons: control counseling Inject 1 mL (150 mg) into the shoulder, thigh, or buttocks every 3 (three) months 1 mL 3 06/12/2024 06/12/20 Active Hospital, Clinic, or Other Facility Administered Medication Ordered Dose Route Frequency Start Date End Date Status medroxyPROGESTERone (Depo-Provera) injection 150 mgIndications:Encounter for surveillance of injectable contraceptive 150 mg IM Once 02/21/2025 Active medroxyPROGESTERone (Depo-Provera) injection 150 mgIndications:Encounter for surveillance of injectable contraceptive 150 mg IM Once 11/22/2024 02/14/2025 Ended Active Problems Problem Noted Date Diagnosed Date Well woman exam with routine gynecological exam 03/13/2025 Encounters Date Type Department Care Team Description 03/13/2025 3:00 PM [place] [address] Luis Angel Esquivel DO Well woman exam with routine gynecological exam; Encounter for screening mammogram for malignant neoplasm of breast; Postmenopausal state 03/13/2025 Bamboo flowsheet [facility] [address] [place] [address] Luis Angel Esquivel DO 03/06/2025 Travel 02/28/2025 3:15 PM EDT Office Visit [facility] [address] [place] [address] Aria Farooq, DPM Ingrown toenail (Primary Dx); Pain of toe of right foot 02/28/2025 Bamboo flowsheet [facility] [address] [place] [address] Aria Farooq, DPAcosta 02/28/2025 Travel 02/21/2025 3:00 PM EDT [place] [address] Encounter for surveillance of injectable contraceptive 02/21/2025 Travel 02/14/2025 Travel from Last 3 Months Family History Medical History Relation Name Comments Diabetes Maternal Grandmother Sepideh aguilera Atrial fibrillation Mother Mardelle COPD Mother Mardelle Heart disease Mother Mardelle Hypertension Mother Mardelle Relation Name Status Comments Brother Alive Father Alive Maternal Grandmother Sepideh aguilera Mother Mardelle Alive Sister Alive Son Alive Social History Tobacco Use Types Packs/Day Years [...] PM EDT Sexual Orientation Not on file Last Filed Vital Signs Vital Sign Reading Time Taken Comments Blood Pressure 142/92 03/13/2025 3:42 PM EDT Pulse - - Temperature - - Respiratory Rate - - Oxygen Saturation - - Inhaled Oxygen Concentration - - Weight 77.1 kg (170 lb) 03/13/2025 3:42 PM EDT Height 160 cm (5' 3 ) 01/10/2024 3:16 PM EDT Body Mass Index 30.11 01/10/2024 3:16 PM EDT Plan of Treatment Upcoming Encounters Date Type Department Care Team (Late st Contact Info) Description 04/16/2025 3:30 PM EDT Office Visit [facility] [address] [place] [address] Aria Farooq DPM [address] [facility] [address] [place] [address] 05/16/2025 3:00 PM EST Clinical Support [facility] [address] [place] [address] [place] [address] 03/17/2026 8:30 AM EDT Procedure Visit [facility] [address] [place] [address] [place] [address] Luis Angel Esquivel DO [address] [place] [address] [place] [address] Procedures Procedure Name Priority Date/Time Associated Diagnosis Comments POCT , URINE Routine 02/21/2025 3:15 PM EDT Encounter for surveillance of injectable contraceptive from Last 3 Months Results * POCT , urine manually resulted (02/21/2025 3:15 PM EDT) Preg Test, Ur Negative Negative Urine 02/21/2025 3:15 PM EDT Luis Angel Esquivel DO POINT OF CARE TEST ENTER/EDIT OR DERABLES Final Result from Last 3 Months Insurance [facility] Member Subscriber Plan / Payer ( fective 2017-Present) Name:Julia Stallworth Relation to Subscriber:Self Name:Julia Stallworth Payer ID:Not on file Type:Not on file Address: [place] [id number] Care Teams Tank Car Cleaner Relationship Specialty Start Date End Date Liliane Penn MD [address] [facility] [place] [address] PCP - General Family Medicine 01/06/23
--- OUTSIDE RECORDS SUMMARY | 2025-03-13 20:17 | XMS_ITS | Encounter Summary ---
Author Organization [facility] Address [address] [place] [address] Care Team Providers Care Client Application Support Specialist Name Role Phone Liliane Penn MD Primary Care Provider [phone] Reason for Visit * Reason Comments Med Refill Encounter Details Date Type Department Care Team ([facility] Contact Info) Description 10/18/2023 Refill [facility] [place] [facility] [address] [facility] [place] [address] Luis Angel Esquivel DO [address] [facility] [address] [place], [facility]11 control counseling Social History Tobacco Use Types Packs/Day Years Used Date Smoking Tobacco: Former Cigarettes Q uit: 10/11/2009 Smokeless Tobacco: Never Comments:5-10 years since [facility] smoked Alcohol Use Standard Drinks/Week Comments Yes [...] on file documented as of this encounter Miscellaneous Notes * Telephone Encounter - Karolyn Santos LPN - 10/18/2023 8:19 AM EDT Approving, but needs appt for additional refills. documented in this encounter Plan of Treatment Upcoming Encounters Date Type Department Care Team (Late st Contact Info) Description 04/16/2025 3:30 PM EDT Office Visit [facility] [place] [facility] [address] [place] [address] Aria Farooq DPM [address] [place] [address] 05/16/2025 3:00 PM EST Clinical Support [facility] [address] [facility] [place] [address] 03/17/2026 8:30 AM EDT Procedure Visit [facility] [address] [facility] [place] [address] Luis Angel Esquivel DO [address] [place], [place] [address] documented as of this encounter Visit Diagnoses Diagnosis control counseling documented in this encounter Care Teams Client Application Support Specialist Relationship Specialty Start Date End Date Liliane Penn MD [address] [place] [address] PCP - General Family Medicine 01/06/23 documented as of this encounter
--- OUTSIDE RECORDS SUMMARY | 2025-03-13 20:17 | XMS_ITS | Encounter Summary ---
Author Organization [facility] Address [address] [place] [address] Care Team Providers Care Electric Arc Furnace Operator Name Role Phone Liliane Penn MD Primary Care Provider [phone] Encounter Details Date Type Department Care Team ([facility] Contact Info) Description 03/15/2024 Orders Only [facility] [place] [facility] [address] [facility] [place] [place] [address] Kelly Elmore [place] [address] [facility] [place] [address] Social History Tobacco Use Types Packs/Day Years Used Date Smoking Tobacco: Former Cigarettes 1 15 Q uit: 10/11/2009 Smokeless Tobacco: Never Comments:5-10 years since [facility] smoked Alcohol Use Standard Drinks/Week Comments [...] Upcoming Encounters Date Type Department Care Team ([facility] Contact Info) Description 04/16/2025 3:30 PM EDT Office Visit [facility] [address] [place] [address] Aria Farooq, DPM [address] [place] [address] 05/16/2025 3:00 PM EST Clinical Support [facility] [address] [facility] [place] [place] [address] 03/17/2026 8:30 AM EDT Procedure Visit [facility] [address] [place] [address] Luis Angel Esquivel DO [address] [facility] [address] [address] documented as of this encounter Procedures Procedure Name Priority Date/Time Associated Diagnosis Comments PAP SMEAR Routine 03/07/2024 12:00 AM EDT documented in this encounter Results * Pap Smear (03/07/2024 12:00 AM EDT) Swab Cervical swab / Unknown us Luis Angel Esquivel DO LAB CYTOLOGY ORDERABLES Final Re sult EXTERNAL LAB documented in this encounter Visit Diagnoses Not on filedocumented in this encounter Care Teams Electric Arc Furnace Operator Relationship Specialty Start Date End Date Liliane Penn MD [address] [place] [address] PCP - General Family Medicine 01/06/23 documented as of this encounter
--- OUTSIDE RECORDS SUMMARY | 2025-03-13 20:17 | XMS_ITS | Encounter Summary ---
Author Organization [facility] Address [address] [place] [address] Care Team Providers Care Specialist Icu Name Role Phone Liliane Penn MD Primary Care Provider [phone] Encounter Details Date Type Department Care Team ([facility] Contact Info) Description 04/11/2023 Abstract [facility] [address] [place] [address] Aria Farooq DPAcosta [address] [place] [address] Social History Tobacco Use Types Packs/Day Years Used Date Smoking Tobacco: Former Cigarettes Q uit: 10/11/2009 Smokeless Tobacco: Never Comments:5-10 years since [facility] smoked Alcohol Use Standard Drinks/Week Comments Yes [...] suspected to have Coronavirus/COVID-19? No / Unsure 04/04/2023 8:35 AM EDT documented as of this encounter Plan of Treatment Upcoming Encounters Date Type Department Care Team (Late st Contact Info) Description 04/16/2025 3:30 PM EDT Office Visit [facility] [place] [facility] [address] [place] [address] Aria Farooq DPM [address] [place] [address] 05/16/2025 3:00 PM EST Clinical Support [facility] [address] [place] [address] 03/17/2026 8:30 AM EDT Procedure Visit [facility] [address] [place] [address] Luis Angel Esquivel DO [address] [place], [place] [address] documented as of this encounter Visit Diagnoses Not on filedocumented in this encounter Care Teams Specialist Icu Relationship Specialty Start Date End Date Liliane Penn MD [address] [place] [address] PCP - General Family Medicine 01/06/23 documented as of this encounter
--- OUTSIDE RECORDS SUMMARY | 2025-03-13 20:17 | XMS_ITS | Encounter Summary ---
Author Organization [facility] Address [address] [place] [address] Care Team Providers Care Mortgage Funder Name Role Phone Liliane Penn MD Primary Care Provider [phone] Encounter Details Date Type Department Care Team (Late Contact Info) Description 02/28/2025 Bamboo flowsheet [facility] [address] [place] [address] Aria Farooq DPM [address] [place] [address] Social History Tobacco Use Types Packs/Day Years Used Date Smoking Tobacco: Former Cigarettes 1 15 Q uit: 10/11/2009 Smokeless Tobacco: Never Comments:5-10 years since [facility] smoked Alcohol Use Standard Drinks/Week Comments Yes [...] [address] [place] [address] Aria Farooq, DPM [address] [facility] [address] [place] [address] 05/16/2025 3:00 PM EST Clinical Support [facility] [place] [facility] [address] [place] [address] 03/17/2026 8:30 AM EDT Procedure Visit [facility] [place] [facility] [address] [place] [address] Luis Angel Esquivel DO [address] [facility] [address] [place], [place] [address] documented as of this encounter Visit Diagnoses Not on filedocumented in this encounter Care Teams Mortgage Funder Relationship Specialty Start Date End Date Liliane Penn MD [address] [place] [facility] [place] [address] PCP - General Family Medicine 01/06/23 documented as of this encounter
--- OUTSIDE RECORDS SUMMARY | 2025-03-13 20:17 | XMS_ITS | Encounter Summary ---
Author Organization [facility] Address [address] [place] [address] Care Team Providers Care Guest Services Lead Name Role Phone Liliane Penn MD Primary Care Provider Encounter Details Date Type Department Care Team (Latest Contact Info) Description 03/06/2025 Travel Social History Tobacco Use Types Packs/Day Years Used Date Smoking Tobacco: Former Cigarettes 1 15 Q uit: 10/11/2009 Smokeless Tobacco: Never Comments:5-10 years since [facility] smoked Alcohol Use Standard Drinks/Week Comments [...] Podiatry [address] [place] [address] Aria Farooq DPM [address] [place] [address] 05/16/2025 3:00 PM EST Clinical Support [facility] [address] [facility] [place] [place] [address] 03/17/2026 8:30 AM EDT Procedure Visit [facility] [address] [facility] [place] [place] [address] Luis Angel Esquivel DO [address] [facility] [address] [place], [place] [address] documented as of this encounter Visit Diagnoses Not on filedocumented in this encounter Care Teams Guest Services Lead Relationship Specialty Start Date End Date Liliane Penn MD [address] [facility] [place] [address] PCP - General Family Medicine 01/06/23 documented as of this encounter
--- OUTSIDE RECORDS SUMMARY | 2025-03-13 20:17 | XMS_ITS | Encounter Summary ---
Author Organization [facility] Address [address] [place] [address] Care Team Providers Care Air Chief Marshal Name Role Phone Liliane Penn MD Primary Care Provider [phone] Encounter Details Date Type Department Care Team (Late Contact Info) Description 04/12/2024 Clinisync Result Encounter [facility] External Department Unsolicited Luis Angel Esquivel, DO [address] [facility] [address] [address] Social History Tobacco Use Types Packs/Day Years Used Date Smoking Tobacco: Former Cigarettes 1 15 Q uit: 10/11/2009 Smokeless Tobacco: Never Comments:5-10 years since [facility] smoked Alcohol Use Standard Drinks/Week Comments [...] Podiatry [address] [place] [phone] Aria Farooq, DPM [address] [place] [address] 05/16/2025 3:00 PM EST Clinical Support [facility] [place] [address] [place] [phone] 03/17/2026 8:30 AM EDT Procedure Visit [facility] [address] [place] [address] [place] [phone] Luis Angel Esquivel DO [address] [place] [address] documented as of this encounter Procedures Procedure Name Priority Date/Time Associated Diagnosis Comments MM TOMOSYNTHESIS SCREENING BI 04/12/2024 4:28 PM EDT documented in this encounter Results * MM TOMOSYNTHESIS SCREENING BI (04/12/2024 4:28 PM EDT) Anatomical Region Laterality Modality Other 04/12/2024 4:28 PM EDT Narrative 04/12/2024 4:29 PM EDT [address] [address] Mammography Report Signed Patient: JULIA QUISPE MR#: [id number] : 1970 Acct:[id number] Age/Sex: 53 / F ADM Date: 04/12/24 Loc: RAD Attending Dr: Luis Angel sEquivel D.O. Ordering Physician: Luis Angel Esquivel D.O. Results: Date of Service: 04/12/24 Follow Up: Procedure(s): MM tomosynthesis screening BI Accession Number(s): [id number] cc: Liliane Penn M.D.; Luis Angel Esquivel D.O. Patient Name: JULIA QUISPE MR#: [id number] : 1970 Exam Date: 04/12/2024 Ordering Doctor: DR Luis Angel Esquivel . RADIOLOGY REPORT PROCEDURE: MM TOMOSYNTHESIS SCREENING BI COMPARISON: MG MAMM SCREEN 3D KATARINA CAD, 05/07/2022. INDICATIONS: Screening Calculator Name NCI Breast Cancer Risk Assessment Tool 5 Year Breast Cancer Risk 2.00% Lifetime Breast Cancer Risk 15.70% Personal Breast Cancer No Personal Ovarian Cancer No Treatments None Family Cancers None LOCATION: [facility] BREAST COMPOSITION: The breasts are heterogeneously dense,which may obscure small masses. FINDINGS: DIAGNOSTIC CATEGORY 2--BENIGN FINDING. NO CHANGE FROM COMPARISON. Scattered benign-appearing calcifications are present. Scattered benign-appearing lymph nodes are present. RIGHT BREAST: No significant suspicious finding. Stable micro clip marker lower inner quadrant, anterior breast LEFT BREAST: No significant suspicious finding. RECOMMENDATIONS: ROUTINE MAMMOGRAM AND CLINICAL EVALUATION IN 12 MONTHS. PLEASE NOTE: A NORMAL MAMMOGRAM DOES NOT EXCLUDE THE POSSIBILITY OF BREAST CANCER. A CLINICALLY SUSPICIOUS PALPABLE LUMP SHOULD BE BIOPSIED. Dictated by: Lacho Urias MD on 04/12/2024 at 16:27 Approved by: Lacho Urias MD on 04/12/2024 at 16:28 Dictated By: Lacho Urias M.D. Signed By: 04/12/24 1629 DD/ 27 TD/TT: Chucker: Procedure Note Radiology, Radiologist, - 04/12/2024 [place] [address] Mammography Report Signed Patient: JULIA QUISPE RMR#: [id number] : 1970Acct:[id number] Age/Sex: 53 / FADM Date: 04/12/24 Loc: RAD Attending Dr: Luis Angel Esquivel D.O. Ordering Physician: Luis Angel Esquivel D.O.Results: Date of Service: 04/12/24Follow Up: Procedure(s): MM tomosynthesis screening BI Accession Number(s): [id number] cc: Liliane Penn M.D.; Luis Angel Esquivel D.O. Patient Name: JULIA QUISPE MR#: [id number] : 1970 Exam Date: 04/12/2024 Ordering Doctor: DR Luis Angel Esquivel . RADIOLOGY REPORT PROCEDURE: MM TOMOSYNTHESIS SCREENING BI COMPARISON: MG MAMM SCREEN 3D KATARINA CAD, 05/07/2022. INDICATIONS: Screening Calculator Name NCI Breast Cancer Risk Assessment Tool 5 Year Breast Cancer Risk 2.00% Lifetime Breast Cancer Risk 15.70% Personal Breast Cancer No Personal Ovarian Cancer No Treatments None Family Cancers None LOCATION: [facility] BREAST COMPOSITION: The breasts are heterogeneously dense,which may obscure small masses. FINDINGS: DIAGNOSTIC CATEGORY 2--BENIGN FINDING. NO CHANGE FROM COMPARISON. Scattered benign-appearing calcifications are present. Scattered benign-appearing lymph nodes are present. RIGHT BREAST: No significant suspicious finding. Stable micro clipmarker lower inner quadrant, anterior breast LEFT BREAST: No significant suspicious finding. RECOMMENDATIONS: ROUTINE MAMMOGRAM AND CLINICAL EVALUATION IN 12 MONTHS. PLEASE NOTE: A NORMAL MAMMOGRAM DOES NOT EXCLUDE THE POSSIBILITY OFBREAST CANCER. A CLINICALLY SUSPICIOUS PALPABLE LUMP SHOULD BE BIOPSIED. Dictated by: Lacho Urias MD on 04/12/2024 at 16:27 Approved by: Lacho Urias MD on 04/12/2024 at 16:28 Dictated By: Lacho Urias M.D. Signed By:04/12/24 1629 DD/ 1628 TD/TT: Chucker: us Luis Angel Alvin DO [facility] Final Result documented in this encounter Visit Diagnoses Not on filedocumented in this encounter Care Teams Air Chief Marshal Relationship Specialty Start Date End Date Liliane Penn MD [address] [place] [phone] PCP - General Family Medicine 01/06/23 documented as of this encounter
--- OUTSIDE RECORDS SUMMARY | 2025-03-13 20:17 | XMS_ITS | Encounter Summary ---
Author Organization [facility] Address [address] [place] [address] Care Team Providers Care Merchandise Execution Leader Name Role Phone Liliane Penn MD Primary Care Provider [phone] Encounter Details Date Type Department Care Team (Late st Contact Info) Description 12/06/2022 Abstract [facility] [address] [facility] [place] [address] Yary Bliss PA [address] [place], [facility] [address] Social History Tobacco Use Types Packs/Day Years Used Date Smoking Tobacco: Former Cigarettes Q uit: 10/11/2009 Tobacco Cessation:Counseling Given: Not Answered Comments:5-10 years since last smoked Alcohol Use Standard Drinks/Week Comments Not Asked 0 (1 standard drink = 0.6 oz [...] suspected to have Coronavirus/COVID-19? No / Unsure 11/30/2022 4:50 PM EDT documented as of this encounter Plan of Treatment Upcoming Encounters Date Type Department Care Team (Late st Contact Info) Description 04/16/2025 3:30 PM EDT Office Visit [facility] [place] [facility] [address] [place] [address] Aria Farooq DPM [address] [place] [address] 05/16/2025 3:00 PM EST Clinical Support [facility] [address] [place] [phone] 03/17/2026 8:30 AM EDT Procedure Visit REGINO [facility] [address] [place] [phone] Luis Angel Esquivel DO [address] [place], [place] [id number] documented as of this encounter Visit Diagnoses Not on filedocumented in this encounter Care Teams Merchandise Execution Leader Relationship Specialty Start Date End Date Liliane Penn MD [address] [place] [address] PCP - General Family Medicine 01/06/23 documented as of this encounter
--- OUTSIDE RECORDS SUMMARY | 2025-03-13 20:20 | XMS_ITS | CCD ---
Author Organization [facility]iniSyga Care Team Providers Care Boat Rental Clerk Name Role Phone JACQUES ZAVALA Primary Care Unavailable JESSICA FREITAS Admitting Unavailable JESSICA FREITAS Attending Unavailable JONATAN BELTRAN Referring Unavailable JACQUES ZAVALA Primary Care Unavailable JESSICA FREITAS Admitting Unavailable JESSICA FREITAS Attending Unavailable SELF, REFERRED Referring Unavailable Jacques Zavala Unavailable ALVIN ., DR SCHUMACHER Consulting Unavailable ALVIN ., DR SCHUMACHER Admitting Unavailable ZAVALA, DR JACQUES Poon Primary Care Unavailable ALVIN ., DR SCHUMACHER Attending Unavailable ALVIN ., DR SCHUMACHER Attending Unavailable KATHRYN, DR SEDA Donaldson Consulting Unavailable SALLY, DR JACQUES Poon Primary Care Unavailable ALVIN ., DR SCHUMACHER Admitting Unavailable ALVIN ., DR SCHUMACHER Consulting Unavailable JANIYA MATIAS Consulting Unavailable ALESHA RTEVIÑO Attending Unavailable SALLY, DR JACQUES Poon Primary Care Unavailable ALESHA TREVIÑO Admitting Unavailable SALLY, DR JACQUES Poon Primary Care Unavailable SALLY, DR JACQUES Poon Admitting Unavailable SALLY, DR JACQUES Poon Attending Unavailable SALLY, DR JACQUES Poon Consulting Unavailable MD Jacques Zavala Primary Care Provider MC Rausch Attending Provider Jacques Zavala MD Primary Care Provider [phone] MD Jacques Zavala Primary Care Provider MC Rausch Attending Provider MD Jacques Zavala Primary Care Provider MC Rausch Attending Provider MD Jacques Zavala Primary Care Provider MC Rausch Attending Provider MD Jacques Zavala Primary Care Provider MC Rausch Adriane D Attending Provider DO Pasha Kinney Attending Provider [phone] Rausch, Adriane D Admitting Unavailable Chele Zavalaia E Primary Care Unavailable Rausch, Adriane D Attending Unavailable Jacques Zavala E Primary Care Unavailable Rausch, Adriane D Admitting Unavailable Rausch, Adriane D Attending Unavailable Jacques Zavala Primary Care Unavailable Pasha Kinney Admitting Unavailable Pasha Kinney Attending Unavailable Rausch, Adriane D Admitting Unavailable Chele Zavalaia E Primary Care Unavailable Rausch, Adriane D Attending Unavailable Rausch, Adriane D Admitting Unavailable Jacques Zavala E Primary Care Unavailable Rausch, Adriane D Attending Unavailable Rausch, Adriane D Admitting Unavailable Jacques Zavala E Primary Care Unavailable Rausch, Adriane D Attending Unavailable Rausch, Adriane D Admitting Unavailable Chele Zavalaia E Primary Care Unavailable Rausch, Adriane D Attending Unavailable Chele Zavalaia E Primary Care Unavailable Rausch, Adriane D Admitting Unavailable Rausch, Adriane D Attending Unavailable Rausch, Adriane D Admitting Unavailable Jacques Zavala E Primary Care Unavailable Rausch, Adriane D Attending Unavailable Rausch, Adriane D Admitting Unavailable Jacques Zavala E Primary Care Unavailable Rausch, Adriane D Attending Unavailable MD Jacques Zavala Primary Care Provider MC Rausch Attending Provider Jacques Zavala MD Primary Care Provider ALISSA FAROOQ Attending Unavailable LUIS ANGEL ESQUIVEL Attending Unavailable Janiya Matias Attending Unavailable Janiya Matias Admitting Unavailable Janiya Matias Primary Care Unavailable Seda Urias V. Admitting Unavailable Seda Urias V. Attending Unavailable Janiya Matias Primary Care Unavailable Janiya Matias Admitting Unavailable Janiya Matias Attending Unavailable Zieber, Janiya R. Primary Care Unavailable Seda Urias V. Admitting Unavailable Seda Urias V. Attending Unavailable Zieber, Janiya R. Primary Care Unavailable Zieber, Janiya R. Attending Unavailable Zieber, Janiya R. Admitting Unavailable Zieber, Janiya R. Primary Care Unavailable Zieber, Janiya R. Admitting Unavailable Zieber, Janiya R. Attending Unavailable Zieber, Janiya R. Primary Care Unavailable Zieber, Janiya R. Admitting Unavailable Zieber, Janiya R. Attending Unavailable Zieber, Janiya R. Primary Care Unavailable Zieber, Janiya R. Primary Care Unavailable Zieber, Janiya R. Attending Unavailable Zieber, Janiya R. Admitting Unavailable Zieber, Janiya R. Primary Care Unavailable Zieber, Janiya R. Attending Unavailable Zieber, Janiya R. Admitting Unavailable Zieber, Janiya R. Primary Care Unavailable Zieber, Janiya R. Attending Unavailable Zieber, Janiya R. Admitting Unavailable Zieber, Janiya R. Primary Care Unavailable Seda Urias V. Admitting Unavailable Adonay, Seda V. Attending Unavailable Zieber, Janiya R. Attending Unavailable Zieber, Janiya R. Admitting Unavailable Zieber, Janiya R. Primary Care Unavailable Allergies Allergy Classification Reported Allergen(s) Allergy Type Date of Onset Reaction(s) Facility (16 sources) Codeine; Translations: [codeine] Drug Allergy 6 [facility] Repository (14 sources) Midazolam Drug Allergy 9 Hives, VERSED [facility] Repository (17 sources) Codeine Drug Allergy [facility] Work Phone: (7 sources) Midazolam; Translations: [Versed] Drug Allergy [facility] Repository (1 source) Codeine Drug Allergy Unknown Outline Other (1 source) Allergies Reconciled Propensity to adverse reactions Unknown Outline Other (1 source) Versed *HYPNOTICS/CARLOTTA TIVES/SLEEP DISORDER AGENTS* Propensity to adverse reactions Unknown Outline Other (1 source) patient allergy list reviewed by nurse or physicia Propensity to adverse reactions 6 Comment:Done Outline Other (12 sources) Midazolam Drug Allergy 2 [facility] (8 sources) Versed *HYPNOTICS/CARLOTTA TIVES/SL Allergy to substance 3 [facility] (1 source) Codeine Drug Allergy 1 [facility] Repository (1 source) Midazolam Drug Allergy 1 [facility] Repository Medications Current Medications Medication Drug Class(es) Dates Sig (Normalized) Sig (Original) ascorbic acid 500 mg oral capsule (1 source) Vitamin C Ascorbic Acid (Vitamin C) 500 MG capsule Orally 0 Active Calcium (12 sources) Phosphate Binder, Calcium calcium 200 MG table t Calcium Active calcium 200 MG t ablet Calcium 0 Active cetirizine hydrochloride 5 mg oral tablet (15 sources) Histamine-1 Receptor Antagonist take 2 tablets by mouth once daily cetirizine (ZyrTEC) 5 MG tablet Take 10 mg by mouth Daily Active take 1 tablet by mouth once bill y ZyrTEC 10 MG 1 tablet Orally Once a day Active cholecalciferol 0.025 mg ora l capsule (12 sources) Vitamin D cholecalciferol (Vitamin D-3) 25 MCG (1000 UT) capsule Vitamin D-3 Active cholecalciferol (Vitamin D-3) 25 MCG (1000 UT) capsule Vitamin D-3 0 Active 24 hr dilTIAZem hydrochloride 120 mg extended release oral capsule (12 sources) Calcium Channel Jessica Start: 08-31-2018 take 1 capsule by mouth once daily, then take 1 capsule by mouth every twenty-four hours Diltiazem Hcl (Cardizem Cd) 120 mg capsule,extended release 24hr Active 120 MG PO Daily 60 August 31, 2018 1:00am 1 ml medroxyPROGESTERone acetate 150 mg/ml injection (20 sources) Progestin Start: 02-21-2025 medroxyPROGESTERone (Depo-Provera) injection 150 mg Start: 11-22-2024 medroxyPROGEST ERone (Depo-Provera) injection 150 mg Start: 11-22-2024 inject 1 dose by int ramuscular injection once 150 mg, Intramuscular, at 150 mL/hr, Administer over 84 Days, Once, On Juliette 11/22/24 at 1530, For 1 dose Start: 06-12-2024 End: 06-12-2025 medroxyPROGESTERone (Depo-Pr overa) 150 MG/ML suspension prefilled syringe injection syringe Indications: control counseling Inject 1 mL (150 mg) into the shoulder, thigh, or buttocks every 3 (three) months 1 mL 3 06/12/2024 06/12/2025 Active Start: 01-10-2024 medroxyPROGEST ERone (Depo-Provera) injection 150 mg Start: 01-09-2024 medroxyPROGEST ERone (Depo-Provera) 150 MG/ML injection Indications: control counseling INJECT 1 ML INTO THE SHOULDER, THIGH, OR BUTTOCKS EVERY 3 MONTHS 1 mL 3 01/09/2024 Active Start: 08-02-2023 End: 08-02-2023 medroxyPROGESTERone (Depo-Pr overa) injection 150 mg Start: 08-02-2023 End: 08-02-2023 medroxyPROGESTERone (Depo-Pr overa) injection 150 mg Start: 05-09-2023 End: 08-02-2023 medroxyPROGESTERone (Depo-Pr overa) 150 MG/ML injection Indications: control counseling Inject 1 mL (150 mg) into the shoulder, thigh, or buttocks every 3 (three) months 1 mL 0 07/25/2023 Active Depo-Provera 150 MG/ML 1 mL Intramuscular Active Multivitamin preparation (12 sources) Start: 08-31-2018 take 1 tablet by [...] tartrate 6.25 mg extended release oral tablet (15 sources) gamma-Aminobutyric Acid-ergic Agonist Start: 08-10-2023 End: 09-26-2023 take 6.25 mg by mouth once daily at bedtime Zolpidem Active 6.25 MG PO Daily at bedtime 30 September 26, 2023 12:45pm Start: 06-22-2023 End: [...] [Supraventricular tachycardia] Chronic Contraceptive and procreative management (6 sources) Surveillance of depot contraception done; Translations: [...] current use of drug therapy; Translations: [Other usp (current) drug therapy] Episodic Other connective tissue disease (5 sources) Pain in right lower leg; Translations: [PAIN IN RIGHT LOWER LEG] Onset: 3 Episodic Other connective tissue disease (1 source) Trochanteric bursitis, right hip Episodic Other connective tissue disease (3 sources) Lateral epicondylitis of left humerus; Translations: [Lateral epicondylitis, left elbow] 02-29-2024 Episodic Other connective tissue disease (5 sources) Lateral epicondylitis, left elbow; Translations: [Lateral epicondylitis] Onset: 4 03-01-2024 Episodic Other connective tissue disease (2 sources) Pain of toe of right foot; Translations: [Pain in right toe(s)] 02-28-2025 Episodic Other screening for suspected conditions (not mental disorders or infectious disease) (14 sources) Encounter for screening mammogram for malignant neoplasm of breast; Translations: [Encounter for screening for malignant neoplasm of cervix] Onset: 2 Episodic Other skin disorders (2 sources) Ingrowing toenail; Translations: [Ingrowing nail] 02-28-2025 Episodic Other upper respiratory infections (1 source) Chronic sinusitis; Translations: [Chronic sinusitis, unspecified] Chronic Phlebitis; thrombophlebitis and thromboembolism (7 sources) Deep venous thrombosis of peroneal vein; Translations: [Acute embolism and thrombosis of unspecified deep veins of left distal lower extremity] Onset: 9 Episodic Residual codes; unclassified (8 sources) Postmenopausal state; Translations: [Asymptomatic menopausal state] Onset: 2 03-07-2024 Episodic Residual codes; unclassified (1 source) Postprocedural state finding; Translations: [Other specified postprocedural states] Episodic Residual codes; unclassified (1 source) Tobacco user; Translations: [Tobacco use] Episodic Residual codes; unclassified (8 sources) Insomnia; Translations: [Insomnia, unspecified] 08-10-2023 Episodic Unclassified (1 source) Acute candidiasis of vulva and vagina; Translations: [Acute candidiasis of vulva and vagina] Unclassified (1 source) Lateral epicondylitis, left elbow; Translations: [Lateral epicondylitis, left elbow] Onset: 3 Varicose veins of lower extremity (3 sources) Varicose veins of bilateral lower extremities with pain; Translations: [Varicose veins of bilateral lower extremities with pain] Onset: 5 Episodic Viral infection (12 sources) Disease caused by 2019-nCoV; Translations: [COVID-19] 05-24-2021 Episodic Viral infection (1 source) Disease caused by 2019-nCoV; Translations: [COVID-19] Past or Other Problems Problem [...] Test Name Value Interpretation Reference Range Facility Coding Summaryon 03-01-2025 Coding Summary HTMLBase 64 CyrvzpoqKTp0wEp+PGhlY WQ+BM9JUKReQ24vaPTleB 8mC0MMTXzZLhlrETNWCQm SOqEmlgJpWL6qgJMlBGSn IC8+ER0kVCTtEggcnFCil 1A6aMC2L83dzf9tXWvhzY F6OKMyBqUibzjkx8uoeJv 6IDcuNmluOyBt PVYmqR14AJL0rQ87Bw34n BAafNYls6htnNy1YtDbSD TtYVY0uVitDJndp2GoBHY zO81wbSLqn9P6 FVYgaCovyOVyZiUimSP1d W2nYHcwxqtmw9wekrxeLu n4in07iGUrf7G3oQB1G8M rdeY7QWAolHCv ReywbCOFcK8ccdgaf8act tkjReYaVTUlUKc2TUq4KJ SnuEbaYkYtKE61KBX2XCA ybuNfS7RsAUDk tVedObH0p7C6Du6WG2HWY yhjI3TKLYLTLGvcdUA+PC 08nh77A7WmSkjrBrl7SVL rWNV4tWB5mG9t XUVgWKenc8E6jYD8P3Jep fQcrm7aj0cuVIKcBUipS1 1fzTGuv7E4XRPrvOP3VYS ttLlyXmPusB94 Oyc+KZTvfQbdx2HnKrqnh 3olx8jjwEl9LbgmJVKtgm VktHszSKJ9x1AbGk7xCIQ rrBZ3wAS4mH8b AoOaDxM4RQlkS647UkQlr OZvZmbiP07bN9FqyNL+PH EwHbk7MZRwrEweNS8gC4T hZGRpbmctbGVm nFuvCP9uUHBslzxkHFAiq B1vZSXbE5h1NiDqTsF8VF hvA5QrXHXhgfwaGh91yJ5 iGnNtOkV8JCbr D4VqdlT8APWquLBeHKbdD YQ7B83fx5T4LNOoYGJvSB S2wUR7nL1pnIbwgpexbKR mdDsgdmVydGlj AMdoTDioO788TMTqqQknC kNvZGluZyBEYXRlOiAgMD kvMDUvMjAyNTwvdGQ+PHR kRNF0rFyaNXTr eBOjDHenTz2yuHjieSpyI U4rUVCkkcpoRLMuqN8pLQ OloFAwbJacYR5aGQNvzki sd044MwKyCHL6 MRKneXVnV2VayO1eKyXuQ PSuVXDqX4SliPWiCJhbD0 63CCizEfL9RFRhmrHxR5O sLWFsaWduOiB0 y3R0Zp6Hm1HnzidvU9Rxy EWcQsNqQtpiHQt6Z7PoAx wvdHI+KV79WYPdHY68XOo 7HRB1xXmoBAwt PDKfQ3KxtZ5fNoCtVELiB GRkOyc+PHRhYmxlIHdpZH RoPScxMDAlJyBzdHlsZT0 cHi2bUJIdBYRa wUefpFPkPaAai2agNTAuE FrnZB2dpHmzX6JokHB6QP Kpk2b5Rg68R69jL0LowAY +OCJetBT6aXK8 uU8jSjBtVzX4LJbpB176X dMqrJVnRijyc7tfh7jgiK r0PlE0VUGgkrQbvUkrSQT 9b5GuWf35Y32t IHdpZHRoPSIxNSUiIHZhb Qjhfs2jrM6oBw8+PGNvbC W0uCP2nH4bIsCvOaZ2LKc uN468QvKpgBWw Irtni8jzy1ebkFp2IjTlV KQfanPfsJyiVSI6o6NpAi 22Y0TcsKwsf6YyRys4vo8 1lHUts9D6lZY6 H1YcVBAgdyfpmJDluMecX C1kEFLittdeAUUshA9zXF JxL3h2LqSrBiC7UAkoS5E tcrF9MWTcdVWa SDFvzXKViT2plqkwl7izh axhMhFnCFAvLVw1CWt6QA XnsWotSkDlRKV9UxB6MSX 3uZSpiZ7pfJde tecceY3eDlj+NSS4rLMib AUOIT9wEbqccNN+PHRkIH Y9vPjiDDgiUVWqsE0oKCD tO7p6NgLkPxN2 ZDfaH3DhohF2RQRcaEKwZ AZnhEWSfB4dfaqpl5rmsj qhYfMlAQAzEWc0ANk6IEZ saWduOiBsZWZ0 EeQ3OCL6wHVacR1fpVgda bmjlD2sJrs+QmlydGggRG G8RAn2C4GnKmh1NQUwyOu sFB4joRBcLPjr Pf4bfWaddIshNB0cIPLgx xtuq714XdMsd5qrCFDesI DyAQvuSWI7J16bw7T1VPD cPRVdQQL9oQN5 nV6wcHxfogoesDOwrPxdj gGqtWgfOHbjABczF711OP YhuPdrIeKcCPq6Y7CiCqe 9IZRjqSbdRN1l xBJoZHlxSd6xzYtwvGcjU Y0hNOGwnxpfd738ZlFka2 ufGYGtvRXyCGbnGAP8R73 ab1A4UWXqPKJy WDO6uSH4uC6baAzwpqheh GVmdDsgdmVydGljYWwtYW flB612XTPqaAlsJyJxlRd 2Y8HiPja1HRVr yLqeQT7swWErVObwIo3jh XoqzPhfUY0nRWVocxoaa4 45OxKws6yoOMYtcETuGKx pQMN2U57mx4U2 JYBjWRTmHFN3uLL4aJ7hm GlnbjogbGVmdDsgdmVydG ijUKsbVAavD335YJZkdZh nPlBhdGllbnQg SDvpBLa7M8MdOvprnIU+P G99MSAyWC58zTYyyLIic9 ycjSd7KaUwZGFaSZR8kWj pCHaoa1IpKZVv M87ucYQmu3O3SGLvtHmlv SGbAyIceQD3aG9zFDmyjm hck2zedtqtKnumr6umms8 4sC58S98qVXip ZHRoPSIzMCUiIHZhbGlnb v2ayA8hCp4+LCQohFM9cN B5bN7pWVThGoV4SXoxR53 9InRvcCIvPjxj z6cry0dvyAx3BwZ7OBUma cEywXxfDYO5l1HcNg10O9 9sIHdpZHRoPSIyMCUiIHZ zqUxrzx1scA6f Ii8+WZWoiGN0yHP1cY8rG iKyXsC3CNanC376QkSbuV ZdDgtoY26hL9YnnBO+PHR jOrb7TMIdkIzi DQ2dbVGmWOkxRv1kUYF8R sMtXdHmJJglY6QsPTXfmm cqalrinMK1WPTdWUGvvL0 6Nl6kdBupJUWq kBIQaC3fnonpz6qmeodrM rAhRLTdQOm4JGy5MHZxyX wqTaQuTIT9OoZ8AHD2iID kvS7szPjffyck tA6vB6MqZVVjahfdYe87f W2vMbMdEbY5UQbvWhz+Sk OKNIzyHKPFYO2QPBLWEL2 BRTwvdGQ+PHRk FVV1uImrHEnuPMWhgJ5lJ NMwP9e3PuPxWtL6XNslC1 MrUZQkujnfLg25hR5kGbJ iWsV3LRlbX2Ku smX2MJAsbJHjRRtwWCC1P 28pd9R9GQRcRHUaROM8nG V0cC7awQywedvgvTWssGy gdmVydGljYWwt DQnnL344CQEchAxdXbMoV qEjRrC3VbO6A3WzBlh2JO XlcNpxCK9qzXXuDLucCl0 mnUvoxVbtHE9m OIUqlppcVNYxnD8eCFSeq EJbrUgiDM7yAMVgzubfx8 79OzCcYWI5USMmiQZkA6J ubL8oMmNaYIXy QTYuP4HpxDNvFIyeM492F NdpNfK8GVVfsaEaX0GsQO TviQkiXiS3p5U7Nv39RjT ZZWFyczwvdGQ+ CHImVVC8uApjXPlcGARvo E6uHNUdE0q3KcRyZhF3TZ chU3TbLVQjgeqcAm57kK0 fVyWvFaM1ADpe Y9QwlqF6VLYxnEZvZRaoP RL5C19ip7X0KIQyQZHuLH M9qIB4dD2wvUdkzwontGT mdDsgdmVydGlj BVbrVUwlZ304BZCpeUvfD kZFTUFMRTwvdGQ+PHRkIH T0zHuiDTuvUQDxkM3wHQY dA9m1CgCoOxN9 XWxrW8UaVGSuwpduFw84i Q5dAkLbPfI8SBcgP4Fsrv T3ZWTjwDDhIUsePGA8H77 ac0M6XPPpRESn TIA5nTM8sG4qhPkvutbqu GVmdDsgdmVydGljYWwtYW iwZ880RUIdeMxnCb3HKD9 9BA17G3WiIkui dGFibGU+PHRhYmxlIHdpZ HRoPScxMDAlJyBzdHlsZT 4yXi9qWOQmIAOnhZfrbTJ pClMth3abFYJx HWauAQ6pdEzlZ3QhrTB6S FNgu3a5Ok81Z63tE1BdlY A+TAVeaVY7yXV1iT6hUjL rUdK5WUqzP388 RvMpaBCqKuewx2hww2cyh Jf0JnPwSAGniuIefBscQK H9g3OzSd21C96vDPeoXWQ oPSIyMCUiIHZh zXuzyf1hcK0eRd3+PGNvb YG9uSS6xK9fEvEyVxY7GX wbX625OiYklNAuVuzdF26 wM4YkuMO+PHRy Uck9WDKnnJujPS6gcCIeP WslWu7kUFO2ZsYdLyCtXV hhC1NiEEWvxogqdaxtvBL 6TYSxDIPqsP03 Ym8zoEsgYd9xTPXxWMR7N AYgaFOqL2AdvQ6aNpVhFN QdFBRkQ4VraTDaTSxqS92 6SAlvKdX5WPCm iwFgH5SdLGIecJxgLhQ0k 8J4Gn0JmHwyzAWcOI5vYd LuSHp3L5NbXzr9NKBncHg sKS1epWPfMBli Xa5peGiiaMjcIO6uPUUhl nlfq170CjHmk1abFZGcqX MpKSfaOUQ7F95yl8A7OXW aXUOkCPI3lZU7 jV9joFmvdoufvCHqcAucu jXafVreMLzzRZzcG743RB BzbZhlUlLROuz2M4NbUwg 5QVVcmUifYX9b dXUrOCkpXt2kaUsukGrcX W0sCFKhmecjv045TqOvq4 dlHWLdiRQnLKjmAUB2T07 un0T3LFNbDMPf VOZ4sMX4yF9wrHbjkvjfp GVmdDsgdmVydGljYWwtYW buF260EOQjsHirUs5SIce 4C0YoUyr1AUWb kYlwJR6avEMhSFphRx4kb TvryJjjMW3yLKOwcfyxk5 96AzMty7bqYRGijZJgBNu tWNP7J98rh2F1 WSWfEKIzDDB5lSD0cQ7ao GlnbjogbGVmdDsgdmVydG xcNTuwDKbeE002UXTzxGx nPlBheWVyOjwv dGQ+CY68mc76H6BpXviuV mt0UOGeEKH9hSD6kJ0kHM IjNOxta5R5xWX2U0NfdiN ewy2vh0umRGAh ZTo (more content not included)... Normal [facility] US LE Venous Duplex Lefton 0 02-26-2025 US LE Venous Duplex Left EXAMINATION: US LE Venous Duplex Left HISTORY: Phlebitis and thrombophlebitis of superficial vessels of left lower extremity COMPARISON: Prior procedure. FINDINGS: REGION: Left lower extremity THROMBI: Heat induced and/or microfoam chemical ablation induced thrombus within superficial veins as expected. . 6 and meter segment of thrombus within the proximal posterior tibial vein. COMPRESSIBILITY: Non-compressibility of treated veins as expected. FLOW: Absent flow within the treated veins as expected. Normal waveform and antegrade flow within deep system. OTHER: None. IMPRESSION: 1. Successful post ablation occlusion of left leg treated branch saphenous varicosities. 2. Deep vein thrombus within the proximal posterior tibial vein. Final Dictated by: Janiya Matias MD Dictated DT/TM: 02/26/25 4:36 Signed (Electronic Signature): Janiya Matias MD 02/26/25 4:38 pm Technologist: KYLA[facility] Coding Summaryon 02-22-2025 Coding Summary HTMLBase 64 IyjtmxnaJSk9kUv+PGhlY WQ+JT1VUJSzR36wiXPceL 1nQ3PHZPqPFrkxJZAOORn DBlGdbkMcQH7zwALrPMTo IC8+DA3sPDEoJhsiiNFfi 4D3dFD2G38ipo8wKAjztY P7QFCeZdNizowbo1whfMo 6IDcuNmluOyBt QTBxwR14FZU2iM56Hm48g NMdjUGny8hsiOu8WrNxEL PmOEX6aHvuNUosm6IbRUR qM56njCBql1T9 PDFryYmgdYIuMlPdxHZ1f Z5dJNvkvtybg1drputuAd x2bq04zOGiv2E9oCL9E8A vazX2JUUlwBKe SjqisKAIfS6kioutn0oxr stlXzGsAXMrBSb6HKg3PZ DpvGiuIrRrCZ05MFM9TYD wjjOxS4KwERLc lDvgWsG3a8B5Zp0ES5JTP fqwN6TLHOLPMDxnsZY+PC 72qw92L5SvScrgAkd1RZE eHGP5yVV0dR1r SIOzLCenf9Q5iDE0Q9Qih cPoej9lp7ufSIQcLQzyM4 8awTBah4E5EJHqhBA3TZQ hcXtqKiSsjN60 Oyc+DLMzyXeyc4WiCxrcf 3hus4lxdRl0EdhlFDMlpj OspJfpRAK8c5TjMg3jTAU mtQW0dSE9xH6t CiPvKjW9JSihU843ErPwz DMrAiwnB99sH1CwiXU+PH KqEei2IQIjcVtlAP5jG8J hZGRpbmctbGVm mPjkOX9zVRHopbedUDBvu G1fYGHhU4m8TxMzJeN1GA qlQ5FfZCFpatieXf01uE5 jOdMvEoD7BAkx Z1RpqiK7JPUvlIKtNUeqZ NN1H38cu7U0DDEkFZYqRI G1gPD1lS6hsZygrcsqfLB mdDsgdmVydGlj VVqfLPyoL272PJYvtKpuH kNvZGluZyBEYXRlOiAgMD gvMjkvMjAyNTwvdGQ+PHR jWEC5kWezLECd oEXwSUamYn9ywMamvKefM T7jYEEuuklqVNAiyQ7iDB AnlBNcaNlgUP3oHCKcysp gq081GlPyUXO9 VNZjkNBmP7TfbH0dQaJpI BXySRIlR0YjrPIaUHmeD9 69MUjfYvR6GADnwtDhI4D sLWFsaWduOiB0 r7J3Hq8Nw5NbewsmV7Haa AHrGhPeLgoyFCr3Q4KwVa wvdHI+KM11PNTfEP85MPg 4JZS9aXpcRNny WRBgE9KaxK7lLoInSBBbT GRkOyc+PHRhYmxlIHdpZH RoPScxMDAlJyBzdHlsZT0 rSc7dPKKwRICn iIwdpOMuZuFgk9fxFBZuK LqpPD7wiSjlE0MgcHK5CC Rbh8a5Qx00U98nP9VdmWT +MBMxdES6sFJ2 xS0bDzQqVzE7GNjzR188O rDspUWbTfcxr7tst1bsmA a9VwG5KSMfpiFchTkaLJA 7t6FdKu00D76f IHdpZHRoPSIxNSUiIHZhb Wfovz4dbG0zPu9+PGNvbC N2cUY1pB0fFcLkQwT5JIy gF243AbPqaJCy Zcelz6gyh9otzKy4MxSaA KOyatWpdCyqUHM8p1TjIf 97I4SfkHrtq9KdSan0vo4 2dDOrk5F5nKB4 U4SdVCPdnfbejTJhuLlcY I2kXJIapoyzOCToiL5pIJ VzI6z0BsRePrJ4MJgtH1Q zinG2YAEorTAa MJSlcRJOlL1enlyey5wsh votKgEaVINpDFj5HFu3WG SldDmfUlUlHSV6TjB7AGL 7uXQzvQ0viNhy fwqpjF9aCeb+SOB4nDAee RTGGS7uFftqwBD+PHRkIH M2wGniNRihAHWdrW2sFHQ aN1u7CbLwWnK6 PKjbU0ApazW6TJHsvYPvM SVlpTBDvL0phrxjk1aoij rrPaJuPQYjWXu3RYt9PYS saWduOiBsZWZ0 NzS8BWX5dVXctS3pwKbdy nibvE1vUar+QmlydGggRG Z3VIz8J2BuZbq7RPYedJr wYA1imQJnXQjr In8xrBxaoAwaXF6gYHLol djkj389PiXqe5jfCQCwbW XrNKqhLVF6U12mi3R2YHY kBXKsMPG8lIW0 hZ6xvBsjglsuoICtzHeuz wRxxRpeAQctSHixR447JK FqkSwnGuKjSEq9E3AaOva 9PCQpvDytCB5m vKXvTTgoEd2rzTtckUfxF N6nBTCrqqnqe232MsNkx5 nwOZGuxHNiBPdbGOE7S61 og5Z5GSWdYYQw MNY8cVI6aQ6czRtizeylx GVmdDsgdmVydGljYWwtYW txN872DFIkrQqcRsSnfJh 1U3RoQbi7BQNw sAdbWL6chQDmNHhlMy6oq KqcvNciNU9oMTOhtdxxa9 71KoAoz1zgZRRbuAJiAJe uOIR3I58xo6K1 FRKgCIViHYL5zVG4mB4nm GlnbjogbGVmdDsgdmVydG rfXEnyFPooX504KEXyaYk nPlBhdGllbnQg TKnyNEw6N5PkKmdezYA+P K74NCMeBA99uVYnsNDkw5 ovsNg3DwLjZEQjPUI4sCo lOOnkh6TmFNSa G49bkKKai4H4SJYxqGtvh YAoZgTqqFX5xM4rRMzxdm hda9rqzbgjEdstg5uard0 5bA08S39wALsi ZHRoPSIzMCUiIHZhbGlnb s2xdT2pTx8+NJQtjAK6lR E6aD8jHKTtHmC7PRnvB72 9InRvcCIvPjxj v7hpg7hjnZx7OgL6BQAuo sQzuIilXPY5e3SlZm12E5 9sIHdpZHRoPSIyMCUiIHZ ofAlbvv2jiD8o Ii8+QWIciLB3oKL6hE4sQ nBlCvV2FTjhI909HhThpG GfAyniQ54kC5QoxBT+PHR cNrs0FLUoyKdu PE5vnLDvIVekHy6wZEH1T tYiQiKgKMpvP8OcFWQpvt rqtnhqhRE8OYAwKCHdkF9 5St9eoMkeLAUs oDXFiZ3ozllwo3kjoglnX jWiHZMfXBa4SOk0PVPrtY swKgRiXLK2NtM3WLY3pTW lmF2jdCvwhoxc bL3fW6DdSPQblbpnFk98x Z1nUlOqTnS1TOjhDql+Sk JZBUevQPBGZE4KNOQRWJ4 BRTwvdGQ+PHRk MSG4bIseSAjpQHBnpC6xU VKbX8w3XuXmCnY5RDcxN3 DrIDXwsukxUu34iF0qKfD hZhN4BAnbZ7Ki kgD8RENxdBSuOJllJLU8A 87nh5Q1LOPoBGCuTXT1eW Y1zW1gmXkddcjxrJPlmGz gdmVydGljYWwt XAbgB560PRNulSmgEtJkI qOsWbV3HnA7M3CvDol6FX IayApdXA9dqPPoJSenNw5 oeEdpiQobOV6o ODAvyrldXKEocM8cRMTbr GQqvRwmPG9qZAKplwtum7 18SpVsUEF0DSEelTBrB1Y biQ8uNgMzTWSx COQqG4XllNKhVGjpF705L OaoEtZ2MECvnqCkG2FcCQ HbqMwvSsJ8z9A3Fd14PvL ZZWFyczwvdGQ+ QPZwAAE2mQgdGYkjPLUgr Y4uTCRsH9w2JeEtAvE2NP myF0XyFCYdefjtSc44cV1 yVtYbVwV3YCwg N8NsxuS8HWSrwYUcLKdlA PW6I57ym9Y4MVKgECCmOL R2wHE2rJ6vaYwxahhcnWE mdDsgdmVydGlj FTprLOygS704LRMtuJhmC kZFTUFMRTwvdGQ+PHRkIH D1dSdsADomSJRfyK4lWBV bX5f9GwEzMuN0 WMpsL6BbPNAstglrPe76g F6bUyIaWmV1AHxlD5Sfxn D2COPwrOVeNBdwPWI5S51 lu1M8YNTzXWVr CFJ4zKP5sP4lwZhrwwvad GVmdDsgdmVydGljYWwtYW xvN306NKGphFnuLr7WFM9 1LI05M3ZpXosy dGFibGU+PHRhYmxlIHdpZ HRoPScxMDAlJyBzdHlsZT 4iDg3fFPIdKBAzyWszyBT iXaXsp0apJPNq ALivQE7cfLeyT4JuaNS3N PEnu2s0Op46I43iX7RxrO A+TTHpoGF4bZH2fQ2aLcB uHbD8DCzuX986 MmMjdOGrVpppw0vsq6vgl Bh2HuBvNHXbmxAubEjsXQ E1r4RtQf05R79sVLqcJFZ oPSIyMCUiIHZh sAhaja6zxC1yMi4+PGNvb YB9aKT8aA1rJnSaPaY8DG trA335MqAtrJQzUdymG28 qE4HfuVR+PHRy Ekl2WHRxkPbqPF3anCDjC HhbPn7mQNB8NiRbEtEiDG umW5NcWMAsqdqadozjfOZ 0PUIlDQNgsK88 Ay5xtEcpNh3jDCEbLTX5B EXmqLObM2EeiS6aKuBoMD PuIJPmW6DnaMWiWGwzH44 2KJhuKoE8CDSe rySwO3TsNHYqiAcxReI1z 7K8Al6OcYuogRHbUH9lDd WqRXg8P5SoDlb9UZAixLh zLO2phQMnPSxi Jq6sbFmzdYkxEM4eUPUwk xpys838RnNrm0zjILKwtE UtARmpSHQ8S35go0S0MLR cELCfJZS6gTX9 hH5ptGeautfdxZFmgOxwd hZksZbkERyoQBdfM737JN LcrAqrLwBGTyj0Z4RfDkq 2JKGqvLypHY4r xMQgLXigAo8phAanvXnmP J5hODWmejysd007FgYdm3 kvHMJyyTYbVOeoGFR8G61 vl9S6CEWpLQRi AES3dBJ9jB3qiPomdiilz GVmdDsgdmVydGljYWwtYW mdS368KBQmoFwiBg4DTzk 4S7KvMwk9TLEr zGwpWJ4jrYHkYZflFm6ai GrynAcfSW0jTHAetvuiw8 28LhHks6ycSSGgeTJfPOg vACQ5Q48hl6H0 IMAyCQWeERE5cWV1xL3wh GlnbjogbGVmdDsgdmVydG seZSjqUOjdU839AAGmuHa nPlBheWVyOjwv dGQ+[id number] ro4JJUrKAI1aNZ5eG4nJG TyNYssi2B1eFV4O1WemfV hob4jo0aeNTMv ZTo (more content not included)... Normal [facility] Patient [facility] 02-18-2025 Patient Handout Radiology Sclerotherapy, Care After After sclerotherapy, it is common to have swelling, bruising, and soreness. You may also have: ? Some changes to skin color. ? Slight bleeding from where you got your shot (injection site). Follow these instructions at home: The instructions below may help you care for yourself at home. Your health care provider may give you more instructions. If you have questions, ask your health care provider. Injection site care ? Follow instructions from your health care provider about how to take care of your injection site. Make sure you: ? Wash your hands with soap and water for at least 20 seconds before and after you change your bandage. If you cannot use soap and water, use hand pondman. ? Change your bandage. ? Check the area around any injection sites (injection areas) every day for signs of infection. Check for: ? More redness, swelling, or pain. ? More fluid or blood. ? Warmth. ? Pus or a bad smell. Activity ? Do light exercise every day, as told by your health care provider. Walking or riding a stationary bike may be good options for you. ? Return to your normal activities when your health care provider says that it is safe. Ask what activities are safe for you. General instructions ? Take otkf-glj-vnuahzi and prescription medicines only as told by your health care provider. ? Do not use lotions or creams on your legs unless your health care provider approves. ? Do not smoke or use any products that contain nicotine or tobacco before the procedure. If you need help quitting, ask your health care provider. ? Wear compression stockings as told by your health care provider. These help to prevent blood clots and reduce swelling in your legs. ? Wear loose-fitting clothes on the treatment area. ? Avoid being in direct sunlight. This includes avoiding: ? Sun tanning. ? Using tanning beds. ? Do not use hot, wet cloths or any form of heat near the injection site. Contact a health care provider if: ? You have more redness, swelling, or pain at any injection area. ? You have more fluid or blood coming from any injection site. ? Any injection area feels warm to the touch. ? You have pus or a bad smell coming from any injection site. ? You have a fever. Get help right away if: ? You have leg pain that gets worse when you walk. ? You have redness or swelling in your leg that is getting worse. ? You have trouble breathing. ? You have chest pain. Summary ? Swelling, bruising, and soreness are common after this procedure. ? Check all injection areas every day for signs of infection. ? Wear compression stockings as told by your health care provider. These stockings help to prevent blood clots and reduce swelling in your legs. This information is not intended to replace advice given to you by your health care provider. Make sure you discuss any questions you have with your health care provider. Document Revised: 09/16/2022 Document Reviewed: 09/16/2022 [employer] Patient Education ? 2024 [employer]. [facility] Coding Summaryon 02-08-2025 Coding Summary HTMLBase 64 XqfzbwnjZAg6sYp+PGhlY WQ+TZ9AJKVkP05qpVXqhL 7sA1NPAVoHCpuqELVAODo MVaRicbYmCJ2eeKShPUYs IC8+TB0sBCWoKtpkjCEoz 0C7mNM5B44rpp1mBTadzF V4WOVpUuWimoteu3qvfQe 6IDcuNmluOyBt HYFrmG54LHM4sJ24Pa24u JWfsHNwf0vwkUi4ZiZkTS EzUNJ0wVhrVVyby2ElIJK wB96wbLFge4N0 ADPdpNfngBGcHyYniDE7s X2tFRrzmudns2lsqnscVp y7dy54xQQvr6F3aCY1B8Y owfX0GCXmfXPz GdgqqYFCcR6qssvyj7xfj mzhZlHiFNJwVOy8HWs3DK VglMciAwMrIX55VQR4YKH eisHpS1UzYZHz tVfqHoM0f3T8Ll0ZS3CNX emtR6JQDAUHKJyqeEF+PC 24en42H6UlAlbdHjm0QGC aCBO1rSH1bE1w FZIpNNcbw7B3qCD0J1Yhb nAwvd8ry1goQLBmPDjlS6 8yhUTgs9L8YTMedPO7WMA mtMywPxCqwD87 Oyc+OLEuiFrme3AuQxcaf 6ett4lyvPl1WsmiNRFvmj NofKotONP0d6WjFt5sLZW mwXF5bUI6rJ2l HpJoZtR5XCywQ858IwLbj XEtQzrrX47yM2LorLR+PH DxAcm4XLKwlXazLW4lU6C hZGRpbmctbGVm lBfpUK9oXHTjcnxaVPAsn P5qVKVlU7u8VfAmFcY8PJ ynO1HgLJFmfsybZi74tN1 yHmFnSvB3SYkn M1GgwpT0PDYovTJfQGkfH MN3W68nd9A2MSSlXLHgBZ B8pAE7yT6wzJojruyxsVJ mdDsgdmVydGlj ZKprLHshL507EXGjxAgvL kNvZGluZyBEYXRlOiAgMD gvMTUvMjAyNTwvdGQ+PHR cPRQ0oVlgLLNh xBFaLOudDs8nvJgnyLpxS P1oYCRgpgxpKJKpuD1nNS AqqAOcmNqgPH8jLQUuwda id303NzLtIMW1 FZOqaBJoF2SdxT3pRsRkM QTjSEEsE6FvgTZqREteP9 48NWhdVxN3YBQvesFaJ2V sLWFsaWduOiB0 r0I0Tj8Sy7HaeknoO5Oip XSpJqIkOjwpVNj2A5CzDu wvdHI+DP28SWLrYW06IJk 7KLW9kHexIEop ILYxB5FkiU4uJsYaIKByN GRkOyc+PHRhYmxlIHdpZH RoPScxMDAlJyBzdHlsZT0 iHz0mZKKgMUHe nSdxoEEaRqBot1lmGXUkZ GzcAH0qzHwnN7RehDG4EN Fea2o7Nf64G54qV3JbeXX +CPJieUY3hMQ1 jX8wGgOhPoI9NFzyU474S qPqcSFuGmcwg1kyd1vlcR c3ZbX4YNLrdxQktNpnWNT 2n8QjCq95N39o IHdpZHRoPSIxNSUiIHZhb Baduz5mjL7fIp7+PGNvbC Z3vRS0zE8sStQrEjN8IYm bQ541HbUraHYr Oyjmv2fwb7cnkFk2TjVsM FOxkiAryNyhRVM1x9UrBz 69O1BajUvru5GdJiw9nr1 2dZDng0V6zQZ9 Y5TxHGZhhcnlgHBkhVviP Z8rAJTpeqneRSSboX2pRK EuG2z3EpPfBgH7DButY6L mdaZ1RJYtvQRk WGGzyDSUpC9zzfxiz6zqs fjnCgOlICHkJMr4LDw9QB YvfFmeKiUiRIA4SpQ7KDP 7jKWflW2wkBuc ffhxdB1wOyr+ESI9zZCoc XXMJE3fKysbxQB+PHRkIH X0sEcqNMwnYQOczB5gHSQ fS1y0RqEcReB3 WNtiP5UeyfU2PLYazTObM WUblPGUyQ4raktpn5htky vtRpKhSZArYGg2OSr3JVC saWduOiBsZWZ0 KdA1XMH2oWLlzV4dgVjke aazfF6wTcv+QmlydGggRG Y2UYb9Y6JiApl8VHPcxLz lLS6pjGWzTWvq Si3jyVjriQnuJO8nQDFov jprw408JoDnq2eoIASihL UpHLzvGRH5T55xe0U6JGA tGSMwBAD8aXE3 wK4yzZpuairpfJLnyAtrt sDelYzgOLivSWpuS768EM JadEscJfEhBNm2W1YvNtt 2AZIovBdoLL9r gYSnQMwiSt4dtKdrwPiuP Q2fMJZxrgxin868DpCdi2 jeKSAeqEEyVRfjQPQ2Q88 np5Q8ESFiCBWg QBU6lYC4zE1ieElubhpfx GVmdDsgdmVydGljYWwtYW ltM903YSLfpQrfAyKtpOn 0K3FfQjh5MAMv gWlmVA0lqLKgYPzdHh7oe KsseRywFB4iLNFdmbvug9 19AjYwj5sgMCXgvIIsQKf gJED6Y36dp6J9 NPAvNHCmWYV9bNS3sJ7tv GlnbjogbGVmdDsgdmVydG ncDXxsMTxcY784BNHaxGw nPlBhdGllbnQg UGqgPVp1A6DoQcaskOI+P B37ZYKsEF64zAOacRFrk9 ylgKd0XkRmOGAeETY8sAs wCHbsp2XpACHx G85ziHFxm6V2UEFkhEiuo LAlYePviFI5dA6fCBgsxv fft6ihtnwmEaupx9vkbn3 5sN90L85gZDjj ZHRoPSIzMCUiIHZhbGlnb d8epA0bUa0+TZDudHR4rA O3cG6lQTJsRoG1WNnyK80 9InRvcCIvPjxj v0xni0zacZx3YqP2SSXmn jBjuLaxBVU1f6EhLt49E6 9sIHdpZHRoPSIyMCUiIHZ bjKivad7vtT6y Ii8+SMTqkPU5hTE1aQ6iM uVtTvP1IOnmV878WyZceJ HeOkgjH99tV7BdxWK+PHR rOoq7AGXiwRme JM7xdQTpXGcpOd8rKFK9X yMlHnXtBBznD4CqRGPphz tmxhrfdID4FVZlOZFymM2 9Li7yfHdsIPUq bZKMfG9ebvinu0qjgtroB tXvYHRdVRq6NFo1IFQpwK lgXdJiWIN2IiP9XFB7yEA hlR4tmPkhhige iJ0iQ4FuXRRkmfcbIl77a K9qWdEfNsZ4NAryXtq+Sk DLDNwtNLHELD9MKGUELH5 BRTwvdGQ+PHRk SEL7eZwjRVxhEOIyfA6oG GRnQ1v3FhDuMtQ2VAcqV3 WhFKWnostdSo74oB8pGgE wRsB1GFncJ5Bp eeF2PHBzbMKqUUvnMKF1D 33qw6A9GKCvINFhFNF8qG Z3hB0ctYosmvtktTDxoNn gdmVydGljYWwt TMpmY876HBPuxBadTpStO tWeOlJ0MiL1E9ExJyl1MM TpjVciSR7bfEXkCGgdGg8 wpTbyiDdbXS9t OMTkeihkWQFveG7dLFNor NFgyOvqWY2kPILcmysjj0 84MaCaLDZ3HCEiyHAeX8D eyW9dEhPsDNJx KGKpF9KwbBNuZDmnW740X VryUcW4BANusmMiP1UgYR AxfBmuUkZ9t7H7Yb55MfT ZZWFyczwvdGQ+ GMPgCQG2wZsmVVhaALVgd X8cJGCiV9m4MoCwHsQ7FS iqW4HiZAZwkpzeCo35bH1 wWuOfAuB3RZip R0OlldG1UBLdbGPvIDmrL IB0I86ke5F0WNZxGDYkTA V4sQJ0zW9wgPrutdfeqEZ mdDsgdmVydGlj UPhbMDphB398CDArcEjhF kZFTUFMRTwvdGQ+PHRkIH I2pBamQRyqCGBwaA2yZIJ yM4x1CxGfMmO0 AUplB1SrDUFjjocgRa18p K4ePvKoYqP9SKmkZ8Yrza X0EYIqbHOuMBqaUOG0Y91 hb5Y1UIUqSMNt KEP2oWI7wZ0gaFloegctv GVmdDsgdmVydGljYWwtYW cuR413VRSzpAkkVk4BXO7 0AO57L7AyZblb dGFibGU+PHRhYmxlIHdpZ HRoPScxMDAlJyBzdHlsZT 8fXg8sPEBsUHZlrPajhTV hQyMqk2fiVEId ZNziXN3fvSdnX4UkpVU2O QLix0b9Dy77H65yY1SkmS A+XSBxjBX0vZZ0qP5dPjU pBeB9VUbdU569 PnSxfZAxVbhho4viq7sau Qj9VdSdMDYiyaVskWddOF U2d0PfWu86V47hLSfpYUB oPSIyMCUiIHZh jAsvwf7joR3iXm5+PGNvb ZF1aUB3cA9mXlVlVnB9XE vgC391ZrPotANsDrmpS72 iS7YnyKT+PHRy Qkg6SXSnkKolDJ1xjDYqA DnnNd1wJMW7IpKvHbNrDF wfG3WoYJSdporvqqegySJ 3UAImCXWiuW95 Ds5eqLjgQe9sMNZbMAK9P UPwqHYkX4AyaV7oMmWpDY AeCJOfC5JbxWByCMxoG28 5GSkzZbN4NOQn sqZlH1LeXCOghGwgUfY2q 4U6Xb9GyLygsFEsHL4bXp OsXGb5P7GoWrp3LUYfpDk iJO3ejPAqGRwb Qn4acBosaPusRJ6mYEPsx vskr939TzCvf3duFMNtjZ VzDEokHQF2C50su6Z6BEG gOTKxBKJ6zTQ2 rM1oxIemqicdzRFvmTbin mTbbWjjPXxhTJzkP571MI BexVejDvXBVnq4W2AeYwh 6XUQdbUelAH8x kWWtQWtrMh4tcMbmkMxeF S1cVCFpttqxm849FjAgq7 kvPOWbpDHwLXqoZCS6I13 rd5H7RDIkPXDo TOD5qWL2qJ6ctErlamcgq GVmdDsgdmVydGljYWwtYW rtD183HTWzmKdjWq5UAvy 3F9XnEjn1YRTh uTtaRX4ikRLtTVfhAp0zt SlfdDbjBP6wZWDijwcyr6 02FfHbi3seGEWxkPYwNAm zGEX1E57yj9E6 JYUvHERvXSO5fAI9nR2ao GlnbjogbGVmdDsgdmVydG shRXfgFNysG520MKBarPy nPlBheWVyOjwv dGQ+FX20fb49M8XvYxmoB kv4CUVlITX9aJR0hA7dEN YxTMvuk9X2tTO7O3PoceF hdr9wp2onVRCn ZTo (more content not included)... [facility] US LE Venous Duplex Righton 02-07-2025 US LE Venous Duplex Right EXAMINATION: US LE Venous Duplex Right HISTORY: Phlebitis and thrombophlebitis of superficial vessels of right lower extremity COMPARISON: Prior procedure. FINDINGS: REGION: Right lower extremity THROMBI: Heat induced and/or microfoam chemical ablation induced thrombus within superficial veins as expected. . No thrombus within the deep system. COMPRESSIBILITY: Non-compressibility of treated veins as expected. FLOW: Absent flow within the treated veins as expected. Normal waveform and antegrade flow within deep system. OTHER: None. IMPRESSION: 1. 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 Final Dictated by: Janiya Matias MD Dictated DT/TM: 02/07/25 4:02 Signed (Electronic Signature): Janiya Matias MD 02/07/25 4:03 pm Technologist: KYLAH [facility] Coding Summaryon 02-01-2025 Coding Summary HTMLBase 64 CwbwfamcCUf3dUw+PGhlY WQ+KG2QKKJvR90gcHPpuO 4zJ1KDAIoMZpuhTLTFFQm MYxRgdzVjHS1loJRkQMHs IC8+PW8xZZEiLihzcEPdw 9P5sRF8Q80pyq1wFGhloX Q5DJYbElIqvfmpo2pzlVq 6IDcuNmluOyBt HXZvlD55SLB3yP92Wt53a KInrIDxs6wuwWw1SpAnDZ SvHGD3cRhdKDekm4SbZTX nM16jyHCva5F3 DZBdwLfofBGhCkFhuQA1h M9hOXzpvblll5agsevoWj z4zk90cHNue1M7fDI8H9H vxpM8EXGcrSSc YkfzaWFYpD9vmsrjx3jch exkVwViWOOgYSs5HRz4OP QziLugNqGfEQ10WRP2DLX diiIkA5XcTHDt uPrpDyI5v6L5Ou2DI6ZLF uytD0BHAGAHAKabsYH+PC 19of96X1PkPzmaDlw5QKP sREB9mGM8uE5m JSLnYWnix3H4rRP3Z5Fpb yOdcm9my9hwNMYpONuuM4 7ewZTyy1R3OYVghRG8PAR dySjiXuTwdT15 Oyc+CCEijHxik8PoIfffj 3krn1htrTi8VkbkUYGdmc CoySvySLB1d2NoRy3qLOV bvJZ8mCU9oF3v WwQnCkW6YGugO940HjOfv FQkWqlvP55aF3IqkKJ+PH ZlEug3QSYskHomPR2mW3R hZGRpbmctbGVm vNryMM9oZUHqcalyINVyn Q4uTWHgS7z7QuGtUbD6XR onN8ScWJWvakxnMs46aV2 rXeGcYkB3RUuq V2VulfP8EXYnyERtSUpbP KT0C49bg7R6AOJiMVDoCS S2yGY2oB3agFsopcqiuVW mdDsgdmVydGlj XCtkYTtrN133GYHxkFvuK kNvZGluZyBEYXRlOiAgMD gvMDgvMjAyNTwvdGQ+PHR bSDL1eIxmGRWe lYBhIScaJi2kgZapkUieS G7zEVMvuxuaBYRppH8jYR PanRXrkFswQD5qOCTmtbr ew175AbQrCLY3 JZZavYPaW6ClpB0wPpDdM DFyWYDrC4YuzKBfENctM8 41BXhxAbZ7IPEmfbKtB6K sLWFsaWduOiB0 y5L4Qg5Mg5JeqdvzG9Mbc XPdLbFjHlibUTn3B9CjZj wvdHI+NT15BLTcNJ52JKv 1GLB1hYnyHKlk OUKpT9NxdR1cYtNhYGPaB GRkOyc+PHRhYmxlIHdpZH RoPScxMDAlJyBzdHlsZT0 zPt9oYZJzGRJr oJlkiSZlPaPjq2waZABrI KfoQZ7cuGmxG2CsqYH3CY Zcv2o0Bn34E03kJ2VffVB +UDQaiAP9dKW4 hB6sKhGdRrT7IPqdP077X fVkhLQvGbmbj4euv7dobT e1QpG7IMDzbzYrsCxxWFV 4x9FhGz16K27c IHdpZHRoPSIxNSUiIHZhb Occqe1xcI3zVx4+PGNvbC K6tPK8bL7gKuOuZrS7KZv kJ963PjXawHKr Vnfmh3pnp3mnhNv7OoQhP QAcruEzrNpwIDI0s6PoUu 61C6DlwPuqp1VbEno9ik0 3yLWzh8U7tLG1 J8LqOPIdeafjeRVmjDfgA Z7dVMVblcxzOVLuiS2qPY DiT3v6CyZyIrS1NTdcU3R qppI4DTYciZMy HPUikFOTlE6ozncim3yfu cciRiJqUTPqPZv5FCl0CL ApnXmpQpAzJEU4PfB4BJS 0eVYmnX0sqWpl wrrbcQ4kAlu+OHC7rUFye LTSYZ7xDwxffSI+PHRkIH Z1lUhsVXccIDBcfL1nHHP xY6b0HlIiMrZ0 GRweI3ZaxpE1SEWscYKdF XFweZSKcS2hbzzzk6zuyc mhAmKwBLBdPNn1VGy1OSA saWduOiBsZWZ0 HdJ9ICO0yDJdxW5sgDhej qdjkZ1vVzm+QmlydGggRG U3IOp1C1RnNid0ADWbrXp fUF1jcSZkSQuo Sq4inGscyHhjOZ0nBUViv tqrt812MbHkj0waJPCtaQ JwEMvdQTB0P80xz7R6SZH yQHSvDKH4oVO9 hE1npFxyyearbNDztVbba dMrpZzqHSytGNfyN535YM TiiOkoGmSwTYw3J0LsLtk 5HJQdrLydRC6c vDQxLJgtHj7drLfonMyjX U3lEINqyjdnq497EoHij8 itMOLmyDIvJXorTVE8Q44 kf2K2FOTnOWKa YJB2iOM7kX3paTzniawdr GVmdDsgdmVydGljYWwtYW vhJ396MXYpmLccOoHzwCs 4P5AtUrw9FWGy sDqiAB0rdGVcMGarRj3dh CaygKudBR6yOTGyroilh0 27ScQkg3mmWWNodXCqRRk sFDR7T06tn7I5 VWIvTCWlADV3iNB0qM7av GlnbjogbGVmdDsgdmVydG uhKBrmDUoaU065TAVloWu nPlBhdGllbnQg CVglBKh6P4IkDfmhlCO+P D21MWOtNX60gNBbhGGlq1 zqhVc7UcEmTKYoMCE3uRl bVCxxy8FnJYQx I37faRKuf4W0CUTzgZees IUaPoKqmGX8oA5lTLlvpa mhc2ptbcfdIifqh7agsa8 8pF95A57eIRxc ZHRoPSIzMCUiIHZhbGlnb u1mgK7tUy4+LIKneEA3eC A0mX0oOIXhJmZ4IFjjY50 9InRvcCIvPjxj e6mip1osiCn4FsO7NXHhp iNhnIaaLWT7m1EfSi05H7 9sIHdpZHRoPSIyMCUiIHZ hyZkqvt7chN3d Ii8+AFCpsJG3dXZ0fL4iY bJvQiT4OTteU460CjNgzU ZoYhajE35vT3XbvIY+PHR sPlr1XMLspBjg FS4ftNZoQGvyRv2tKEE1I jWnBeUhARrqJ1GeZHExbm dduxhzeGA0LYOrHBVxfS2 2Ux0ptMwhOQVe tBBNyR4zdqact6zlldqbN oWtARSqLFd1FTg6TGJxkF paFjMkZJV3AvY5QRS0wNS qjW7xzWfayrca zW0lC7EpTLDvaqdlPr77w I6xZgMuFoP6PWomKpz+Sk ZSNHwvJNZTZZ7OUAZXUA1 BRTwvdGQ+PHRk TJO5lWwoGRzmPVPlfX4qC UQfM3c0LsLdTwR5TFnbV8 DxUNXqcilkVe09uW7iIvP yCnN3KGnyK3Mp znY6XGGeqTWiJAtgSSB8A 18yt0W3PRCwUXZkGKJ6fR D3pG1vrCykuywxyOMjvYa gdmVydGljYWwt UQvzE545JPDelJnuKjScT jSxTgH9JuM9K8NzTtw3AK MceYjeTD9gtEEiPTrxIt2 dvPggwSzbET9o UNGbplzzDMRtrV9oKDVwi ZRqpIanJQ9rSPKbacnwn6 18SkEcFGD9LMHlgYKgS9X bvO0eCvKzEKSt HGQfT0GluMMeJNqxN332E XrwBlD3EQCrrgIzW7MfAK OwhWytYtD5t0Y1Sb82SdH ZZWFyczwvdGQ+ XKAqWQO1xJqeDYifHWUxb Q8pWVGgN8n8EjVlJgO6VN jnH4ZtKGMgxoucSi32tO8 lOvGaDyN9LSbr J6QxjjM5XYCjfUPfQFuiN FQ6K08cu2I1VHOoDWKbYI V8iFE0bD7obOdaltxodUP mdDsgdmVydGlj OGpjYApgF023APTvlVnbT kZFTUFMRTwvdGQ+PHRkIH G9vLxlOPkyENIxlW3qXYW mA9c9QsRhUfF0 NQfoK7WlOJYytysnBo11o M8gBdVuOiJ9APcvC1Nlqm H9IQQtsKPpYYbaHML5B00 sn8E8KVZvMKQp GLJ1wPK8oF1eaSpgkgkkn GVmdDsgdmVydGljYWwtYW aqI581RBRhoVklGw9UAC0 3EA03P1GyHdxb dGFibGU+PHRhYmxlIHdpZ HRoPScxMDAlJyBzdHlsZT 5gTf8wPOKmAPCfyCmttHI dHrXfr8wxKZYj TOomDB6hjQxmV1QztFR1D VPrb4b7Sy94J69jW4OaaD A+NABgfKO0aLZ7hM4vIzP lSaJ9YFfbA046 AtAakHCiRpfec6pkl0qfd Wn1BiRrGHWjkdXqrFwwOZ R2v4WvZu58M74pKJoiPPO oPSIyMCUiIHZh pHdabi5zkZ9gJs0+PGNvb PC2tKR5gM4bSqHoZyA1NV rwK310HcKvjPHrApofN74 lM6HoaXU+PHRy Qtb7MEApsFpoMI3fiOVfH RgtJv5vIYD4IdPeTeBlZJ lyQ8RqLUFsqixfhhuwoQC 6OVEdJJGwfZ01 Ju1hpUzyJq0fBXDhTWV3E LKkrIUbI3AamE0cTiSbTM PmYKYnJ9GjcSDmOQnaO07 2OCyaZlI3LOGe hfOcH6HjLJDtkBoqQsQ6b 2U5Mt1UtDmprIBcGW3kKb CvYYu3Q8DcYeh3SFAmcHd lJN2zyTJoZDte Sk6oqZryeBfsQQ5jFYGbt npvv318AdRsy3mlARPajH OvKTroBEL7Z73ze5C9PDB lODSqCSB4sEW0 pA9xqPuifepjfYPgaZpph sEmfTcfQNakTNbjE091ZT KwpCkpXrXVWtr5Z9UyUru 7YYScgChjXA8p xWDzVRzfHb9npVjgbYjkK V2xTPHwdydxr214EnCye2 tiXWSkcTWjIGplONQ3I83 sl5M1DWYzDKIw LXG4gDF6oB5fwFkhhrktf GVmdDsgdmVydGljYWwtYW elC898FWQogQntBh0BWfv 6K8IvIro4QYOx aAlhBK0pmMTtEPgrDl6tn BxwoCvgAI3fLRWmwozuf8 41GgPpu7juXTXctUBuPJo gZFF4W61io4R5 GNFtAYRbYNI2vXO4zP2tz GlnbjogbGVmdDsgdmVydG dvCRcuIDvgZ698VRHvmAm nPlBheWVyOjwv dGQ+GG14pw66S4BsMlsnM ha6ZNErDKC3wDA9bE4yLO IhTYyyz5N3tFK0Y5AedcX dxy4ab7duCFYv ZTo (more content not included)... [facility] Patient Handouton 01-28-2025 Patient Handout Radiology Sclerotherapy, Care After After sclerotherapy, it is common to have swelling, bruising, and soreness. You may also have: ? Some changes to skin color. ? Slight bleeding from where you got your shot (injection site). Follow these instructions at home: The instructions below may help you care for yourself at home. Your health care provider may give you more instructions. If you have questions, ask your health care provider. Injection site care ? Follow instructions from your health care provider about how to take care of your injection site. Make sure you: ? Wash your hands with soap and water for at least 20 seconds before and after you change your bandage. If you cannot use soap and water, use hand pondman. ? Change your bandage. ? Check the area around any injection sites (injection areas) every day for signs of infection. Check for: ? More redness, swelling, or pain. ? More fluid or blood. ? Warmth. ? Pus or a bad smell. Activity ? Do light exercise every day, as told by your health care provider. Walking or riding a stationary bike may be good options for you. ? Return to your normal activities when your health care provider says that it is safe. Ask what activities are safe for you. General instructions ? Take zioi-oxk-rcuvplf and prescription medicines only as told by your health care provider. ? Do not use lotions or creams on your legs unless your health care provider approves. ? Do not smoke or use any products that contain nicotine or tobacco before the procedure. If you need help quitting, ask your health care provider. ? Wear compression stockings as told by your health care provider. These help to prevent blood clots and reduce swelling in your legs. ? Wear loose-fitting clothes on the treatment area. ? Avoid being in direct sunlight. This includes avoiding: ? Sun tanning. ? Using tanning beds. ? Do not use hot, wet cloths or any form of heat near the injection site. Contact a health care provider if: ? You have more redness, swelling, or pain at any injection area. ? You have more fluid or blood coming from any injection site. ? Any injection area feels warm to the touch. ? You have pus or a bad smell coming from any injection site. ? You have a fever. Get help right away if: ? You have leg pain that gets worse when you walk. ? You have redness or swelling in your leg that is getting worse. ? You have trouble breathing. ? You have chest pain. Summary ? Swelling, bruising, and soreness are common after this procedure. ? Check all injection areas every day for signs of infection. ? Wear compression stockings as told by your health care provider. These stockings help to prevent blood clots and reduce swelling in your legs. This information is not intended to replace advice given to you by your health care provider. Make sure you discuss any questions you have with your health care provider. Document Revised: 09/16/2022 Document Reviewed: 09/16/2022 [employer] Patient Education ? 2024 [employer]. [facility] Coding Summaryon 08-01-2025 Coding Summary HTMLBase 64 YnkdknvkEBp4aKy+PGhlY WQ+TK8UABGaV69lcQKfxB 2qA9KUXQpTDltoOUUQQWu JZrAcjrGlIW1ouEQrSGZv IC8+WQ2mJFQwCmtksJSgz 6O1mZC8M00wuh1yWEgwvV S9PHEdAeWoldtth7qjmXj 6IDcuNmluOyBt PDKupB31HYH8hL31Ct93x RNjyRVef8mpqCf5DmDgYJ NsBXJ8oOroPZptt9DxMAZ oP99wlRQea2C1 MSUzzPratROkKnOexNT5p I6uXWliaujfq9pduepqSq i4fx20bZEna7P2sUD9U2G ytaW0QEIunTSl PqbczKFJhN9jeroob0ihs blnWjJeZWKfNGc4RIj2NV YojYtnGlYjSK64HVM2QGV hzjHuW1LaYGTe sIawJuF0i2I7Hg9CK4WMO joqJ4OAYLVOZBdleMB+PC 09fk07P3GfQdhvLrq1HHS dOGD8xFS9bG7u DMEdERypy5K4jHY5Y1Lyl hExyw5ve6tgDLHbEDwfN1 3whRHcn2R9CHXfpVQ4ZPP cfNjuWsBxhR12 Oyc+LIKycBbkn7GgDlbxq 2bkq4zxzJz6BamzPXGctb OrrQozUJO3f9BaGj8dHGS xjMJ1rKA0lC8r KbFsZnG3JKlpO153NyBtp UUvFghbO67gS6JjyDC+PH ZaAsk3VZMntSqsJB3pH8T hZGRpbmctbGVm yAftIK0mKRGtwmtdWCYrk M3yFOZtC9i8FeAzVoD7TP qmD2ArZMXepyvwUx39eB5 dXeHbAjO3CKlw S1IsktP9REBgmSFqWIztM LH5T08xf4T9WWRuMOTiYH Z9iVM5bJ7crYxzrmfobEJ mdDsgdmVydGlj UTmrTNlyF031PWEjfRxyD kNvZGluZyBEYXRlOiAgMD gvMDEvMjAyNTwvdGQ+PHR uPGA8fYryBMSj kGYnBGnfYy4qwKoecAhiM T7kCGPfbszxWMPmhJ2zSX MzsVNxpXtdEG7vUKYxmsl yn198TqDuOHQ5 TGBlqVJfH4MdrH4bDcJxM GYgBJKrF7PviDJqBLvqD9 82TOheWqQ8YAFsyqZvC9Q sLWFsaWduOiB0 p3E8Vb2Zl1LeelrdT7Spu VEmAnEeEfbsWNn7O7TnZf wvdHI+FI54BUMbII41YCk 8ZCJ7fIwyNLnq PBQzS4EfiN9kQoVxZSCwX GRkOyc+PHRhYmxlIHdpZH RoPScxMDAlJyBzdHlsZT0 kYt8oIENqLCQl nCjywLVpQjNsa3oiLZIjL HedMO5zxFwzU9AgvBK2TZ Kxe9k2Te30H18pM9PnoJG +AIFpeNH6iSS2 rN1zFjQfWnL1LEtyU326R iZlhADbIgtcc4zit8rvfL e1SkB2JFOckqQbfVvaVPC 3x2BgHv69W60e IHdpZHRoPSIxNSUiIHZhb Gpama9vsN3tVe9+PGNvbC L2zON3qE6eXzEtDuO3JXa lW662FaFpmCNe Qtvwp8wvs0ltfXa6LtWiS LTuhqAwfDeyIPS3q0ThWp 50U6VrjLiwh3FyGji5hm5 0qBRhn5Z7nWK3 N5RpGEWlumdjdKBjkIsiB E4dIPWjtovaYDLpzE8tGL RiK7t6ApLdTfS4GWulB3Q lyyM7OJGprKDk WRDjeIHQeV6qoupmo3ejr tbcXgOnWFWeBSe7BTt5TR DhzQnyKxRmXKW0DcF5YWX 4oMWkbQ1enWig lqwkhY5zCqs+ZGL9nEGxv SAQCG6cNghozQG+PHRkIH C8cEfsCPnqPXRsmP2gSMW pU8z2GdFdOmU0 BBsuL1KaovX6HJGmhEOvI XVllPXJzZ7fueuae5niby uvLtDyOOSsKUk9LTu2BFF saWduOiBsZWZ0 LjT9KLU7yWIdmA0xcAirw ijxzU3rCnb+QmlydGggRG K4NWz3T2QoAdp8MBStcXo eVF9jbJMxQRun Gy7gnHxstTblGS9pCVFhg bpws234JeBpp7gsKXBghL KqFPvzYUY5D49df2M9BDV jLCZaRWF8aUS9 uA4xmQjualxuiPBrfUfks bCjrRbsRLoiKRlkY628XP NbcSjdLoDlFKc0S5RzWhc 7VOGtoYsbPP3m pPPwBBisQs2mnRvwuSbaX J9sXWHyycdwl915HgFsj6 laHZEadCUvQIqySUD2I75 rx6T2DCZgGZWh MZA8xLH0eQ3hhMnfuigqd GVmdDsgdmVydGljYWwtYW fiA568ELQnkIxiDlYhwVl 2Y3IvWxc7EEBo gEifKE9dkWEaIQlgSu3lf ZwshKabKU7aLOSgpzumo0 28ScYbh1oxDCVtaWOcTKh hGJR3Z43ga1I6 DCRzOGJwXML0gKG5hB2pe GlnbjogbGVmdDsgdmVydG elOVyeROajU588PQSssAp nPlBhdGllbnQg FLqeSXs8R5JbNmaliZZ+P X82ADKpLG82uRErdSUoa9 pyiIc8YcDzFJWfULD4lUr sBOybg6VwHXLn T81ynFVfu1F4NMGkpMbhz HWqNhGmaPW0vL3uPFdovm mqp0txphwbVcazw4twif6 8fV21V09uCGts ZHRoPSIzMCUiIHZhbGlnb g2hmX7uKr6+AHPaxKO1cS G7iT3iHXQxOiM0EZokR15 9InRvcCIvPjxj s7ixv2camWl8ArB3OMTiz aFojEbeGSL9h3IzNd61D1 9sIHdpZHRoPSIyMCUiIHZ ltKnmcj0tpK5v Ii8+NXJftAP8nTK4yR5aJ iSkEzA1MQwbD230MiRkxU IbXttsY58wC5XqiIQ+PHR zNot0TVHxqHuo QS3blGDhFGgpHz1uTSD7L iLkBpVlEEctL5UsPLUegc blpyscyTF4FDToNSWxhQ4 3Fu5siHycNPAl vCPScU9kmghig7qifoeiN eLuLPEuEAb8HTj6HHCzkL pzAyQqNQY2CnK6SFX6iPH lbZ0plQccdrdw yG0eF3MrEBSnbtevPm61q N1xScFuEqA0EWcqVta+Sk VDPGsjXMWQYU8MFQYDBN8 BRTwvdGQ+PHRk UZF7wSjpUUqaWIKygY5hE JDjM9d4AxSrTqX9XTdcO6 FuGQHmczyoBs07vI3oElE gQtR7MLceY8Ch iuD9VXSubLHbMDrcPVN8U 46nt0Z5TCXiSLNaLOI8wG R1vE0xbZmcxkjmrOCoaSd gdmVydGljYWwt WXmxD624TYJvfZlmFiZqS bOfQdO9ObK5E0XtTze7TJ VlyNvtOC7kiVCmMNqkMq5 zlAqzaAdaKG8t WZQtllpsXHNyoR2rBDQjs YIgkPlbPA6zQODfmkdhj6 01PcNiMSE2JYRrfZHbX4Z wbU3nDlEkZJMa QNKwF4GugIElYDelI545U JbqLdM2KNPjkoLeJ4KhBX WmfPilFsS2d8C0No05UpH ZZWFyczwvdGQ+ DXIyJIK8sYxbNPneICAum N9kGTOjR1l5DuYzIhI4RJ leS1LpLRJbzlyyNl04xM4 mBlNxEzV0YGbz C4FtfkR2ZDHheBUiBUtjT EX7G03iv5K9OCCjPMHrJU Q8lUB0bM6nnQxwzyjgeHH mdDsgdmVydGlj DWogLLbhF517NOQfkGhnP kZFTUFMRTwvdGQ+PHRkIH P0fMwgCYtvIEPsxC0tEPN tI0q6YkQnQjF9 IRojE3YnINVquzsqFf51b C1bIvLfXfZ9IJdjI8Kdmi Y2UVJogKIbMPqpFJI2S61 gk5O7XDXlIASh IDE8sYA3pI8goCyzgalwv GVmdDsgdmVydGljYWwtYW ikO429XTDhlEewZh1IEL5 6XJ12W2XqAarz dGFibGU+PHRhYmxlIHdpZ HRoPScxMDAlJyBzdHlsZT 7rIe7tHQNmOSEduTngcSI oNgVpn6xeIDWg UEzjHN4zeWvzA9ElyZD9I SWpw8m0Dt92K43fZ2OwxZ A+KYRcuST1dQB5fM7fUeW tLlE7QGpcW401 EiYulUZtIobmf3tgm1tcy Lt1LsTuVQPnzrKukRktZC A8s7AjOu76X91hGMzgYPU oPSIyMCUiIHZh uFencz3hnB4iTd4+PGNvb ET1hLL9oI3gVdNuIpU3KQ zlM448LjQkfKFlMjgjH57 vP4EsrOA+PHRy Sux5BNDuaHobLZ7ihFIlQ MpnQc3gVSW2EgYkOlHkJQ kfP6YuSHHhrthqpggikDK 5LLSmCGTelL48 Oh3hmQddWw5hIDVgLXL6U UMqnPEnV9CggC5wNbJmMV AvRZMeE1WknZYpIDhvD18 4BRnpWgQ9TTYv bsMnD8DfQJViePuaVvO0a 2T7Vx5GcDgpxGZqDV1pDd FvLUc4Z0GaXto7SJSxfLf dAV4daRLeHZhg Uo2daQbagCawRR5yRYLxq icvz981CvPno0xmERDtlD ItAHcjWCS2K82au3Y8WKM nIJNqKOY4lFQ6 uN7mbYpdqxjyfYIhtLsmu eTjvNkiWWnmCYklU094JQ KejEmoXtCTLlz9Z5OsPya 5TCNfuBkgMN2t yXQzYCcuUn1meYepxEmsN B3wQREigfbpj824WiLpv0 taVHBroVZiIPsiRYL3K68 tv7M1JVCfUWFk DBB2oOC9mB9ldQlhoplnt GVmdDsgdmVydGljYWwtYW upT967PUCpyJvuZy2VYlc 6Y7DfSke9QJFw kVwyKP8foIEaJBtjPp9tc TsbbApmNI0oALOamrnnq6 51NiGio1uhSOWxeLVqAHy bQCR7H28lw9O4 CYZjVUUyNKV9sSC9lZ8xh GlnbjogbGVmdDsgdmVydG jiNAxzDGlnS850SOZmqQx nPlBheWVyOjwv dGQ+RC52rp85U7RbOaizY ls0OYLpIEY1lNS1jO1yAD GwPClqk8V1sYE7L3EfnrO rir8ax2llGKRo ZTo (more content not included)... [facility] Coding Summary HTMLBase 64 XdxkaskaHDr0sMn+PGhlY WQ+ZL0SFFAiZ32ylECueP 4xL1NEJVrGQvneJXTAZGy DJsKdkpKhOP1gdBRsBWQa IC8+OZ0mNESfXngrtLUgo 3R5oEE5C02rpy8lSQxkeH Y2QILnXtAkywoyc6gumXx 6IDcuNmluOyBt GNEhtE60OGD7yR82Rg78e CQprAAoc4swpTh9XcRbPA CbQCU4bCkeQSqth0FyENI bE83mvIXyd1R7 FACsjNtoaFHdKpXchKE2w G0hXGhojuzcp7ifegacAi w1zr15jBSsu8G6mWZ4O6S qwjH7XVLgkOOn MdnqfBEBrT1swtbbv2bsu fvjLtPtZVPrIVq4IEg5DJ MzlCrmFeYxSE79LWE8DHF qdmQaL0RbPRHp nUddQwU4h2H8Iz5RC8AWF lhoL9KRXQISXTyduOL+PC 77dj16V1OyKlwsVao9AIE iQED3wSA5kF0n ADEfAHnkm3Q3pPE0Q2Jdz fAwym6wy7uuVMTmGBvwA1 9vaXTnc6P6JFWjgTS5LTK wqVdmBsMriO51 Oyc+IGSygXiyl3GkUcvbl 1piz4keaMw5JcvxDSRokf VqjTbrBKB3k3PoRc5aXAI naPL0oNI5fT1c IyJjXqT1MQlwB162IzPgs AOjOpkpL21mQ8EngAY+PH KgExx9WFZudPrnNM4wV2J hZGRpbmctbGVm eTboBL3mDEYdufxiAHMjz S7wOEYqB5p1MbHjHdT6XG bzS1SdVOAdzgfjTj98lO5 uTdOqRlX8JPnn P0BeatX7IROxeROtEZckU NC8L47nv5J4YVAwPSOjFF Z6iWJ6bH1lwZhauhiuxBI mdDsgdmVydGlj ODldKAzuB295FHWvdAwpF kNvZGluZyBEYXRlOiAgMD gvMDEvMjAyNTwvdGQ+PHR sVDK9gAvqSCIv tDHmYFrlCh8wnCtpwGklU T8iYYMylstuCEKufO2bVF VykARjrCusWH9dVDHrzot hw253YmFnWOC4 COHyyRAnV4ZxjB6cVbTwP OJeZZDlV2TpbONpYCaoT7 17MFlgIcS2TLHmurSjZ2H sLWFsaWduOiB0 a1Q1Gw6Zs7KsbevqL5Tdl LQvHgIgNwvhMOk0G5WqUb wvdHI+SA26MKRuSP71AVk 6PQN4tQckBFto ICTnQ1VpvA6oQfApFFJqQ GRkOyc+PHRhYmxlIHdpZH RoPScxMDAlJyBzdHlsZT0 iGs6cOAWjBYXv hZftfPViRqIma2ikOMFiF RuoZI5nwNxfW8CunTG6DQ Qxz7l8Rr20X51bR0DhqTN +OIAefEH5xTO2 qG5lIpMkDsL4FHfcZ471M gWytYYbHnnsn9xyn9qglP q1UxV5PACpagZeeOruPDN 4u9FjEy75B00j IHdpZHRoPSIxNSUiIHZhb Uqpmg6yzX8sLj8+PGNvbC Z3cTI7uW7gPzDpIrE4VVe uW433DvVqiHBr Bmecw1pko7sowIp1YlExE PDfidPbkJqqQOG9s3FmFy 37L8MofEqdv3CbIqs0op2 1sNHxh9R4fRO7 B9WfSLLfofsghBVkoDjxS X6zOVXouqcoGGJewM2vDJ RkH5q2BeBkCfP2UFfoX2I dxtD1WMVicDHy ZSNabCEUiP8sbayni0juc rbrPdJfOGIuIBh1PLu6XH WrbUvjFeFvLBY2WyC0QER 0cLZyuU5yqGsc eeqyyZ4vVyy+CCD3rGXzq BZUYT6qBbtfpGW+PHRkIH J9iTixIRbhTFOmzA7rHYJ vL0v6StVoGfZ0 NAftI2QhpuY0QRRwrMOvM KScnJCThR7wrlkcc9bcqx beKeXxCUZaLTu0MYm0WXX saWduOiBsZWZ0 JlA7GYY5dJTxjE1oyVzor ilsmU3cMks+QmlydGggRG X7GEa2S4OlLbc8PCWqfCb zGL1jwVOvTJpc No4zkBrasOahFM2dYLXax ovrd088HrJyh2jwVSVjwS BqTGinQXH8L06rk3O9SVP xYIDzWTW3vBB9 sN7ilKkrvixcsPLvuRwub fPblVdyYUfxEYutE983JW WvrKifVvKjJDm7A3WjCqz 5LOHbxTzvGP3j gSAlNEuyUa2nwZffzNglJ X3pEJWqgtcpv345EmNzv1 oiSVLazOJkLAnwSPW6N13 ur3N9OMRhACAu KEC0oVD0fP3zmWlgkovpn GVmdDsgdmVydGljYWwtYW vjW953YAClxYkgAsKgfKd 6T0VfLoj4NBHh xUhrKF2nsZXyEWgoTe4zl VsskAbfMX5fNWIimzskj9 44OtLqy3ppTXTwnZMmTPy xJXS4I48on9M9 MKNxHDWxZWT5pQP0hT8dw GlnbjogbGVmdDsgdmVydG qfBOznXUroU262VQMqfDt nPlBhdGllbnQg WXzsVEp0X5XnHqpexUS+P J56BZFpOL14qKJmdBJdw1 qfeQc0VoUiMRYpTIP9cLh rXDste2IyYBBg O87lgRKhn5P2CVFczZcbo DYzSqCkxTT7uP8cLAetms ezd1liharqWyoij4daku6 0nS46W04iNRcf ZHRoPSIzMCUiIHZhbGlnb h5ylE2vFi5+EKVbkDM0xU J8eB2fMUUuAfR2OKiwD80 9InRvcCIvPjxj x9kxf8cqwOm1WvA1HUTiu tCcmMvmZZN7h9WqBd22J0 9sIHdpZHRoPSIyMCUiIHZ ahVyskh4oaA0a Ii8+EXBsxCY4mYV9dO0wM rThPsU4ORooJ890EuYnoY XuIxswT98fH3ZwfPC+PHR oSuv1QBGwdObo NQ9efWQdXFcmBi0tJFH0E tLeAgAbTVliB0JwQMCcee xjlcetjZE9SYUzVGXceZ0 1Qw4wyWkzQFXf zJTSrI9nvrolo8bnshsuY aRdVPFlPBj0RQo9HXLvbW tqFwGjVMQ1HpN5TBF3vAJ ujQ4rdFujrtqc fO2aK8CrFNZijvezGn76u M5fTsXnQeW5NDtmDyl+Sk YXEGczDZVQKB0DQACVLM8 BRTwvdGQ+PHRk LYO1rXziBDseLMAxpY9dV CIwW2z6KiRhItY3QLhvN2 IoZVVrniuyTz92fI9lQzL pBvP2CHnfJ9Nh kpL0SFNlkQZmKRcoHIO3I 44ef4H6WSYsUNZgZZP0vC A3xI0foIhvpuywrRRsgYe gdmVydGljYWwt IYvfP486BRJufImtFtIdV lIpUjA4TvP0B2IrNei4KA FarNurYR1lyMUbOQprPw8 gnNohgTnnNR5f AVFbqyhtRRDfxM5fJYNcw JNwbMuuYP5nCALaigljq1 48VdWkPAW1FJUfhCBcA2P hnG5kEpKbDAIs TTGkF0KgiRImPRjxS603T XepNsP9WAKwzxHaO8UxPE BcoGvtGyE4w1K6Uz72DzI ZZWFyczwvdGQ+ VZTsRSR2gMdzLPhrYEOfb C4cRITaN5c3CaLsUtU3QL hhU0QjAHXrtagpWx26yG6 xLlJzJeA0GUnu P8YnpiV8WVJuiBPpMMqjP DG0J80tg2X9ORYgRADeVN Y3hED0kX3anWcozotueHD mdDsgdmVydGlj JPvfGPrfC289ILGdqVzuN kZFTUFMRTwvdGQ+PHRkIH C9eTsdWPsgDNUjjB3zOHM fQ9w0AaFyHcY5 EJyiZ8AbTIFvvrckSg17o V8hCkIhJnW3LKxoY9Mvri F4RIUkwOUkUCmlMZB8F91 jm4B5SQFxNAGp VZJ3pGU4nN8woMigmhzvu GVmdDsgdmVydGljYWwtYW trN511XQVsyCevMu1MFE0 3KV10C9ZjMxqa dGFibGU+PHRhYmxlIHdpZ HRoPScxMDAlJyBzdHlsZT 9eFd4zSYVtFIAvhNbkyXS jLnYwh4ihKSTi ODtyWL1gfXmsO9PmkMZ9F AQbw6n7Rn20Z38tU7LvnY A+FLCzuPP2dSM0iE4eNcC pBbC0DAzuQ694 JoBiyYVaQwjdt2xvk5wfo Rf1HvDkXMFvesQyoHeyLO T3m4RmAm66G79yQRyjWGV oPSIyMCUiIHZh nRvimb1twQ8eZa6+PGNvb JP2sJI8cP3bQhOeGcE5UY cdK447BkUnwJPvGqzuS27 aS9HfpBX+PHRy Qoq8MWZmvShoZF7thVRxD AsxTw0sLKS0WbUwHeLxFI qfX1MsPCVfktvmfsfpqXD 5MQRnVCIstS40 Jm9aiAuiOc1iYGRrKLK4F UOksPBkF9JkaE5pIbQhBW XeSLDyK5RrrLMvRYikI10 6SMdqZeR7FCSc rpLeR7EsUOVueWnsKnG0w 4C2Zs4YmLlhzUOoES5oVm NnWQp4A4HkRkf4KRGkyJg uBI6lqLFhEDpl Lg4fzEwwfYryPW1bSVVmg hxjv056UyEqy3poIHQikO MbAWygHOF9S13on4W6NWR kYIFmLJZ4mHC5 mW2msVwqnxdqxYJzmJxfx lKacWosFPraOProA217JC FgzHhbUgOHUpu7K3RwMmp 5SVPoxEccVA3q rFPoQUzdZb2hjJvemUcuM H5cDMBfpwguo422CcLry8 cvGPRsxGFuXZxuLRR0I19 rn2W4PGReUNCc THC2dQV5zA8hxJtrshflh GVmdDsgdmVydGljYWwtYW zyO020HBPybScjTo0JQrj 1V5BdDqr3URAw uMxhLX7bmAHzFOwuCd2ru BqskTbzWL1sGQMaxcsyg2 44MiIuf3trRTOxeAEcEPy wGTY2U40ql8A6 OCPsQORgJQF5tPP4wC8yz GlnbjogbGVmdDsgdmVydG nkBWmgREnkP744EXTqcWt nPlBheWVyOjwv dGQ+AH23su80Z2ZnZnazK mi3OMJcUTH0xUU5qQ8oZT UsNZqec1I0jPZ1Q0UlvwE [id number] ZTo (more content not included)... [facility] US LE Venous Duplex Lefton 0 01-22-2025 US LE Venous Duplex Left EXAMINATION: US LE Venous Duplex Left HISTORY: Phlebitis and thrombophlebitis of superficial vessels of left lower extremity COMPARISON: Prior procedure. FINDINGS: REGION: Left leg THROMBI: Heat induced and/or microfoam chemical ablation induced thrombus within superficial veins as expected. Thrombus distance from the saphenofemoral junction is 1.1 cm. No thrombus within the deep system. COMPRESSIBILITY: Non-compressibility of treated veins as expected. FLOW: Absent flow within the treated veins as expected. Normal waveform and antegrade flow within deep system. OTHER: None. IMPRESSION: 1. Successful post ablation occlusion of left anterior accessory saphenous vein. Final Dictated by: Janiya Matias MD Dictated DT/TM: 01/22/25 3:37 Signed (Electronic Signature): Janiya Matias MD 01/22/25 3:38 pm Technologist: KYLAH [facility] Coding Summaryon 01-18-2025 Coding Summary HTMLBase 64 JqktpkheVNl2bSg+PGhlY WQ+AM1YYBQiS17vqAGlsP 4jY9AMTDmSPfeiNYQJNQa VSiRbqtGzSF3krBHtDAXc IC8+TA7sDHYyUtmdjZWsh 4P8gIO4O87fbr3iREfxuJ W8OHIxLoNqpilwb5plfWk 6IDcuNmluOyBt EDQsuL28RJS9gB09Ko18h LEufPQwl5djqYj3UxOxLP AfSHE0xAwdQVmjf0RwMWW dK90zcWUyn7D0 CJUlvXtobLXiTyDmaQO2f L5tNHmgrsvum2eapsooKq i9mp21yIKwa4B7kEK3D8G uxlL6VXFwdRWt IzyhcTSKdO4zntebc7wol xzgXnPjCXLwFMy2YCv3EN VkyHrmKfZcEK97BYL4XXL ssgVyV9AsYNOl uFepLuY6p1F0Es1RN0PYC afrV2KFCGMBBOknxJT+PC 01ay09J0RyKsjzJsl7QEO yJEI6oJN4fO5a WQGaEJhhg3Y5mZI3U9Geq pGeae5le4pvYTOuECgrK2 5onBPyi7S1BQIabEH9QKZ vwOffSzLgsH19 Oyc+YWLyuAjxc8DgWldke 5zfv5dtkGt8YvacGWNong RbfSavEVX5m0DaZq2yRKP wfCZ4pCM0eA4j NtMuDxH3YCcxI246RhKbv HSwHnkvI81gD0YppIN+PH NiDrg7ZNBumSejTO8eH1Q hZGRpbmctbGVm uIsyZY7kTIMfgsbvPMRtx P1kJNApC0p9VgLtYxF4HX jlU9TlNTLqlxuxUo95bV7 bNsKwRbZ0JRou R7YvmhC8IMRqlMIfMNljX LV0A43bg7T0JCKiNTPcAU C7lIN9eK7seKhnalapyGI mdDsgdmVydGlj RBepAUeaM140HNFigWtsW kNvZGluZyBEYXRlOiAgMD cvMjUvMjAyNTwvdGQ+PHR lYFG6wZxbEFWu gVEnLQnaKz0naPxjxFmyQ C9dNJOumhwlFJHgwL6jLW LjlJPisRpvDO5lFVLlpez ip393DsFsVXS5 XTFugWAuO9LpyF0fVlFgW CQwANPgD5IpbOCkEMyuT3 16TJgdRjP4VFCtvlWtI7M sLWFsaWduOiB0 i8Q8Mw6Fu3NcwoktS5Jxt QDgXrSqPoyeTMp9Q7XcAr wvdHI+EK76EBCzOF55VFi 3BFX6kZbrQZku HLEeA9UkwT8jVyAkGINoP GRkOyc+PHRhYmxlIHdpZH RoPScxMDAlJyBzdHlsZT0 hMe5xURCtBKNv rZqvkFYrIcFbd4vuGVWdU GtmPX9phYauB2IeyYS3YQ Ygp8v5Rn85Q02mL8PgpFU +NIUmgLT7qEW2 dX6eJeMdZuY8JMxdH040L zYquTAoMdqsk2avq1djaE x8BiY4WEKmdwWdsUwwPFG 5l4ChJy60Q46j IHdpZHRoPSIxNSUiIHZhb Xdrkb8hgE4eDl3+PGNvbC U2kSM4kP8eEfTcZiE5ZJy zI256AkVsyOXf Ksjvr6iyb1ahlYd1ClKvF HLmgfSxiYbnOWB3q3UxSh 40C1MxvEfjh6YmOwx2gr2 1kDPwb5H2mEC8 I7ZgOMEmozdmvZZtvWejE C7oUOBzwbckZRXpxU1gMO SaV6o2BwInZkS4MDlzV5W yecI4RDXwhGEj CCHyzHNDjY9kmfvml3tpl yizFtEwEOOjBJj8WCe3UP OatPchLvZqGBN3QzY5MFG 2sOCbhX1hyQcb hzdqbE3kTod+PYQ7mILjx JHRBG4jIlrrmOY+PHRkIH S2iOonBAxtHSLmsC6nARH nS3u0BcGrRrH9 CVhyJ7NhfgY5NAItsDOtL GUyjBXJtE0odccdu9vqsc mlZnXoPGSeXUs3UBk8BBD saWduOiBsZWZ0 LlZ2KEU8hWSyiQ1xqXgeq wppcG7xHbr+QmlydGggRG X1EXh7F9NdTmn0XMEjmNk eFR3fyIZjFYyg Kf8xnWoywCpdKL2uMJHhz dlop688NcZhf3tuFRRzgE HyEFxvYFS0D12is4N8TRT iDYWrDVQ8eNU2 jN6dmAbrxuhbhJJmsEitv iWzsKiuIIlgPNnyN395EX FwsJqiEnQaWFz9J4JwJej 3AHKpwXcaES6u xPEfKVddHr5mfFroeBudM Y9zSJShiptuh064GlVhl2 rhNEWrgYJqTBdbIVO1C24 yj0F8CVJeJVSz YZE8fCA5bA5jvZiguwuis GVmdDsgdmVydGljYWwtYW leD461LEBlvMgiYtZmaKc 4Q6FvSuo0IJLf zBblVC8tvQXyRYaeYl4bu IqumAasDD1hJDQmeomhs0 20UgMpi9hzYFSeuQGzWAp sXNX3G24mm2U7 YECtFPSdAHE3fEV5eC9hd GlnbjogbGVmdDsgdmVydG tlGNbhSEuxZ505PCAvyXt nPlBhdGllbnQg LZcdAUe0G2NkMismbGJ+P I00ZDRcJD99bJKsgPBmz3 azxOa9RmSxQRZpWDE1uKs sSGjqj1OtZMSz N24lgHKpy8G9TREztResd SZlZvSpaWG2uM3nHVekvu ngv3mlxndiScfkm8pmwu4 8oN53V94qCEkp ZHRoPSIzMCUiIHZhbGlnb z8leI5bNn9+UDDqnER8cM L3eH1lTWYmXmV7MVjyX10 9InRvcCIvPjxj w2arq4mlxSp7BhB7UBMhm rXbjKziHON0s2QbVl74N0 9sIHdpZHRoPSIyMCUiIHZ ooRxuax4pkZ6r Ii8+LCXdgXT0wEE4zE2mS jHtYjJ3CWuwL510QqRybG AcDxcuZ44dS0UxcJD+PHR xKsu2CIJrhEqf WQ7aiNLsGVdtTm6wDIX4C dDyMsMdXWrtD3ZvHYNeue ssdpmspBQ7BTYnSLHhlI6 8Dm3urBviXDUy rONOfI3xzobed6bvthquY nIyPYUfHYp2AUd5JDXryH ovUsWeAMQ3GbK1YOQ3gWH bqO5srGlygzre zR1rP0EhYURdeibwPa96j V3lBoYtHpT9YRrxZfm+Sk SHWMxnWJILBG8YBHHLOJ1 BRTwvdGQ+PHRk CLA5tOzuHUikIFKshB3wB CQfX7o6JzThUxI5EDavI0 GzFYLygkazPf68lW6wNoK eWjJ0HQohL1Ml ziF7LFRhpGAfDUekWBU4J 03ju8B7PWLoGLWkMMX2hJ Q9lP1rqMkmygnptNAkkXx gdmVydGljYWwt MUtaO463ZSQlqVouWwFrK oAnDtT1TuN2M5JnXpb2WZ GsfMtuGR0hvVOmUDqkMh3 oiUjanNreNJ1s IZWavicjSWWlmX8hNTSwn IDzfQgyAR2jZDPcmmggl7 52AqWaIML7QZGhfDDdD4B iiW3aIsFvNEQw YKLuI3XddOSxAXfqQ962Z AzvWjZ2ITTanhYeJ1ZbHD CygSfdBdB7w3S7Pr50PaN ZZWFyczwvdGQ+ DSCnISR0rOawHGusZHSmm C3wPPUeZ4g1OdFaOaB4TH jbU3PmKNQkamtxNc82oX0 cYcIdSeK4WQvf M2TdefJ2DPEvcMTtKQylZ QZ2W64bm4Y8DLBeOLHlKY R7wLF7iE3scXbxrprrzZL mdDsgdmVydGlj MJihFGvrJ939RMSosCwyI kZFTUFMRTwvdGQ+PHRkIH V5mXvmNXlpYKLwfB1oJRG bB3k1ReWfAmI3 GDyyH2BvHZUweedqSh60e I8rAuAqHyZ3DObkA8Cpub O9ZULmdIPzMTztZJW0I09 bx4S2USMnJVZr OWD8mUO8jT0puTmjjcmmr GVmdDsgdmVydGljYWwtYW rxK958YHJwrMfcHl7YPE5 1YZ09B2ZiBiwd dGFibGU+PHRhYmxlIHdpZ HRoPScxMDAlJyBzdHlsZT 7iKj8pCMHlQIEgdLdjoHM iWfNee7hyOHDj DTgfHF4xuCmhH7MrgHM3G UTfc4l0Hb35W55qI7FidI A+SIOsnLF5yUL1jU6pCqE hQxP4EOzpD910 MvBfyTXxFsmzx9uml8kjr Cj3ToAdYXOkroHvjJrzIE A6y5MjFf63Z41kFTjnWCV oPSIyMCUiIHZh qTckal5qvK2oGd5+PGNvb EA5xJA8aO9sRjTfXeR6BM lmG504IbBduYUjDnoeR74 lY7MsbVI+PHRy Tzt5IYSgnKgmIB3esDZpJ XyrCe2hNZI9LbTmAgEjPP lpR1SmMOIsfaqwxhrofAY 5ZWOdENDdbY82 Ki1oqVyoYd0zDLJrJRB8S ZBaeCGwU4LtuH8zPqTlNV NcNSFjO4WmuRFqAGpjH60 5KGeiBaB1KSMu pvMuY1RgWQMcgLgsTvE0d 8X4Km7XgRemvGLwUQ9zAa AjGUm1U5GhEla6EBKmfXf rCD3daYHhPYqg It8vfOpgkIrnKB3rZFEqz wsya693LyMym2aeZYAvvS AzFBjgELQ1O31cb6B0SZU vRCFyOPL7nDN6 oA5rbOgxonrspUTfaUvij hTguAcnEUgpDVuiH870OH XkvVftFyFYGvg2R0UaLjz 3AYRvtUduML4n oMPcBMnyWd4dqYpcpTmwU H7eKOMqfrinf763BwRam3 erYNBbuEOyAHwuKFJ8F08 ug3M1ANKkVSLp MWX3uQG3aX5tpPzacqpre GVmdDsgdmVydGljYWwtYW pxJ560QFXfpFxxBm0HCur 3J8NgMmr8LFLe hVbpRP3koCNkVOmfVi0jq HspmNvdGK8kWMQycvnin8 80CtOre7meYFWucIWuLNd xNMZ1D94xk2G1 GMSuVYAxMBG5yBH3yR5xc GlnbjogbGVmdDsgdmVydG huESbdSZvyD409ZTYxyEt nPlBheWVyOjwv dGQ+ZQ00dw80W5YeMekuS ll9UPNaSQK0hKD3aQ6jLB YkIDzmi0P3hOD9H8ZsliG tth5sz2keMCRv ZTo (more content not included)... [facility] US Endovenous Ablation 1st V hussein 01-17-2025 US Endovenous Ablation 1st Vein EXAMINATION: US Endovenous Ablation 1st Vein HISTORY: Varicose veins of bilateral lower extremities with pain The risks and benefits of the procedure had been previously discussed, and were rediscussed at length. Informed written consent was obtained. Winston Liz RN and Joy Majano RDMS, RVT assisted. Time out procedure was performed. The left lower extremity was prepared and draped in the usual sterile fashion to allow knee flexion in the sterile field. Duplex ultrasound probe was draped in a sterile cover; sterile transmission gel was used. Venous mapping was performed with the areas of dilation and large tributaries marked. The total length was 41 cm from the entry proximal lower leg to 3 cm below the Saphenofemoral junction. The diameter of the left anterior accessory saphenous vein ranged from 5.5 mm. A 30 gauge needle and 1% buffered lidocaine was used to anesthetize the entry site. A 4 mm incision was made with a scalpel and the saphenous vein was entered percutaneously under direct ultrasound guidance with a micropuncture set, a single stick was successful in gaining access. A micro-guide wire was inserted and the needle removed. A micro-set including a dilator was inserted over the microwire and the needle and dilator were removed. A guide wire was inserted through the micro-set and guided through the saphenous vein to the saphenofemoral or saphenopopliteal junction. The dilator was removed and an introducer sheath was inserted over the wire until the end of the sheath entered the saphenofemoral or saphenopopliteal junction. The dilator and wire was removed and the 600 micron fiber was introduced and placed and positioned so that it extended beyond the sheath and was 3 cm distal to the saphenofemoral or saphenopopliteal junction. Final position of the fiber was determined by ultrasound guidance and duplex imaging. Tumescent anesthetic was delivered by ultrasound guidance. 225 cc of fluid was delivered along the entire course of the saphenous vein. The solution consisted of 1000 cc of normal saline with 40 mL of 1% lidocaine and 20 mL of sodium bicarbonate. A final positioning check was made. The energy source was turned on by means of the foot pedal and the fiber and sheath were withdrawn appropriately. The total number of Joules delivered was 2211. The laser was active for 276 seconds under continuous pulse; average laser use of 8 J. Laser start time: 3:46 PM Laser stop time: 3:54 PM Date: 01/17/2025. A duplex ultrasound revealed compressibility and flow at the saphenofemoral or saphenopopliteal junction immediately after the procedure. Hemostasis at the access site was achieved. The skin incision of the saphenous vein was closed with a 4 x 4. A compression stocking was applied. Postop instructions were given. A follow up appointment was recommended and scheduled. The patient tolerated the procedure well. Final Dictated by: Janiya Matias MD Dictated DT/TM: 01/18/25 6:21 Signed (Electronic Signature): Janiya Matias MD 01/18/25 6:22 am Technologist: KYLAH [facility] Coding Summaryon 01-11-2025 Coding Summary HTMLBase 64 CazdmcdnBOq8mYv+PGhlY WQ+XL9BSEJoJ61isMJylA 1eO3ANSThWOcxhDRBIMCz NSdPepiMfEO5dnZHdBJSd IC8+II9cILEyVhwrxPAeb 1W0mPW0V97urf8cCIwjfB T2DUImKaUjeegpj6ynrAy 6IDcuNmluOyBt IYBwtA63JEG3jE58Fx82e ADkrYWdu8bbqHx3TlHfTE WwDGH6wWroWSmhn3JcJPZ wV73zoZFfo3N6 ZJBpsDpulWEvXwDhnTC4z C9mQLyijwasa0iqsxqnNj e0lm00gWXcr3E6mFT2Q5N tqwD9LIKypARd VfkvhXIFhG2umccpk1nru ohvNyYlNZIfJTe8RLw6RK OyfJfsNnTuGE45JRH3SCI taaKcD8GnUXWz qDdiRbU1l6R7Sp1QN2HWE hxtW7AKWLMIBYropLU+PC 13mn95B0MqRysmQmc1JTE mHQK6kMI8bY4b TUSxBOicx8H1fGI9O6Ize vGlcz7uc1caFNRtNRlrU9 4boMBjq1S2MHMrdRO7MAG vwMqdOwWkgN05 Oyc+YWHefUnry5EhHexcx 2irp1vxjQe1AjrjVOUzqr ZhaHlpAKJ7b4DtLf7hOPE wdGY9zMQ7rT1n YcXoInK1EVgzB724AxVjs VUwEctjN60hC7UsmYO+PH EiNgs9SZLdjUutPK3aM3O hZGRpbmctbGVm oHmmJO8yRRFwtxplFAOpa L3kZQIfM4r7VwCcYiA1FX saH8HtVFDmoriuRh76cD5 iNaEqZlH4IUjz N1NyhjY7TGHbyBZsZXulW LB3S10io0D9FWXeSCIbVB H5zFJ2iY3acAtodsbtlHI mdDsgdmVydGlj UPvfQDooG434TEHhoIcdH kNvZGluZyBEYXRlOiAgMD cvMTgvMjAyNTwvdGQ+PHR jDQQ6kExfJIPf hTChDMseLk1zcIludHvkR B4xKYGpjnufDWJmzM2lRZ WdcKAzlKwoUS4qCMBygzz qu019LnIwPHB6 TWIhvILvT4NxfW4gHsWxI EAoEKUhA2HbcMAkKCrnS9 44IQjcQsB5DJSljrHlP4H sLWFsaWduOiB0 u8Y4Wy6Rm2ZbtrryY2Ooz OSbLkLqYqeePZw4X3PiQs wvdHI+RR00XWMqFR44MDa 7OZV3qOcuENkn GIZeW0VsiN5lKoVdMXZuB GRkOyc+PHRhYmxlIHdpZH RoPScxMDAlJyBzdHlsZT0 bSi9tKPCkZBYo wBbjnZFaIlZaq5gcHBOjZ TnaBD8mfXoiB0OvcGO1QG Cqd9e6Cf23U42iO8FyaRN +NMPtxMD8lXU9 tK6yTsJhYcH5VCunM031T uLzuHVdVguse2iwk0jwvB h8UpW1YQEhaaXpmMzxXSU 5s1QpFg93S72v IHdpZHRoPSIxNSUiIHZhb Tiovw7euF8vJs8+PGNvbC P5lEQ5rN5cXnNvXjH9BEz gJ478KrZtmZEf Uydnn9hbc1kijAd9MtNdB LTnmjJnnHyrEUP0m3KkDw 87U2YqdWoyr8FgIkl5ur8 7hUAed8H5aKC0 F8ZvDCMygvumtFQsvBpvE D7gWHLohibrQIPiwC9eTY XoA0q3OwZrIwV7EAcdQ5Y dqbE9VEZepUZd HXBpsTPMlK6wiovvc4reo jsfJsSqFNAdKCo8SCm1CQ WniVthMxWuZEG8JwR2EFS 0iYKcvB3lwXvz yzoizR5zNdr+LVV6yYKqa DGTCP4nFzaoyEV+PHRkIH P6yGtvMNhkNHOqzW4lRPP pV4b9XjPyWfW0 PKmbH4TolvR6TVArgXHnS AWwzWCAkL8fngeij4hhpf leUtYxSYKrZOn4GSm4TFQ saWduOiBsZWZ0 YiY4IYS0yGVonM4qpStlt tokmY0nKvr+QmlydGggRG C1QEb9Q2UdHiq0OYUltAi rAD0oiGMnVItj Ti6mmFsxbOdrPY3nMVCrj spja000QgBez9mpBENyeQ HiSTucHBZ2T63xy3K7CMA tKMTbRJE0hGT5 vD7urFiwdmlaoXYkdHtvq eSgyPkaZDwcMOqmU789DT BdjIjmUwEaVIp1V8LcKth 6YZPyeOqzKG1j iIFsNQjvPr2aoXxmhMyjV U8gTLYnpbjam416GfXzy1 haBXCfqCUzAPwpAAA1O05 gx1K5UJZiUSNy TPN9ySH5cX0abAkujlovf GVmdDsgdmVydGljYWwtYW jgD652OXKckNdvSxEliLp 8S2ZrSnv3FPFh iZvvTK8jqPGcEVnqMh6mt QuznElbOL1tKYZxyurze6 98RpThk6hwCGVneHGgUYi uWBQ3K26lc9D1 EKGgRSQtIZC0yQB9iW7xz GlnbjogbGVmdDsgdmVydG soVTxsXQprN823UIDqxDu nPlBhdGllbnQg EVhkPZb4P5VoMizxjJC+P I16YLMyUT23mVOttZSnb8 qwlTo0CzKgVTVoOQF1nZj gWVbrv8IhQDLm F62wzAHly5Y2MKOcyLjrl ZOyYdDzqKC4lI7vRPnyhf aqi6fpngwjQphqe5pkuo2 5hF39L75mEHwi ZHRoPSIzMCUiIHZhbGlnb w9kvD0iSm3+OMEryAJ0yX E9rP2qYOFtKkN3XQetO30 9InRvcCIvPjxj q9oyi0ygjHw6TuY2HKXfs kGtwUppMGQ0k9RtGb16H8 9sIHdpZHRoPSIyMCUiIHZ qmOufin9uiF9i Ii8+CNFnzAV7kYC7aV6iY nDxAsS2FUzpH712QnTysR OgVsoaO17yN8ZmfPL+PHR zHnx3NUZlqEnm IJ2ymZJlOFuhAn0eKBP3E zZjZnHqMVjjT4JmYZZouz pnqmmaqKM9YFIsTRQiaV8 8Ix4fhMohKHOa vGLMkV9odnxqv7invkvyN gUrPKZkRGi2OAc0DXNquT vlEmAzWLG7BaA1RHC5aAQ huL7lyHbdflho hT6oK6JmKNIuuxhyQg65l W7bXrEvNuY2YTejByj+Sk NDYAjuDRPXHD2RVIFUOS5 BRTwvdGQ+PHRk ZWS0fAxmHUisIXRweP0jJ QAuE6u8YmRhVnN4JEeqT6 WfYFCxheudKd90gN7lErL kFiI0BKjgM8Dx hqP1ZREjlASvSTzySHI5A 83so3L5RZZlHUYoLCB3uY K0bF2mvPvrnltvvJWotJz gdmVydGljYWwt LQcnT624NMDhhJpwHrKxN pCwSkF6ZxQ9S4BpSrj2HK GzbSibTO2xgTMuPDhhRl1 jeHxasCffCI4n TLEcucooQOOdgM9dERCfx YQpyBedFT9lFTTylsnac6 93ImNlYHG3TXOqsQBaG7L zbU4dYdBdZJVh OJKbL4NcnQEhYOieT525P SbjQbE3SOJvnwVzE5PgOD MfhWgjHjQ0p3A4Tb40IrV ZZWFyczwvdGQ+ HLBuNIE6eMoqLIvdZQUkb T3lKCVyS0e5QjYyEjU8VC voL9ZcEXVqvereQy79hB7 oKoStQpH4LEat Q6XojsH0SZAhbLDnYQwkO CP0I07yb6S9VHIsTJQgOC N7lLL1xQ5roHqqqhwliYY mdDsgdmVydGlj UDhoBPxtZ100VJAixWkgX kZFTUFMRTwvdGQ+PHRkIH D4qWvaNWmeFBImvT1yGWC qJ8a0QdNwCgK9 JSarA6XmNEOwclfaPm66g W4pNeGhDfL4BPblU4Tzuo V4YZDvaMMeRSepQBQ2T07 xy4I4WLMxCSLk DZT9wCI9wM4hoVtlwdcsv GVmdDsgdmVydGljYWwtYW jxV143QAMytPklDn0OTG0 7QN84H4KmJckl dGFibGU+PHRhYmxlIHdpZ HRoPScxMDAlJyBzdHlsZT 4iWx5lIKDxZXFnkOokgDJ aXzDxn6kcLQQo ZCuuRS4uwQssB1DrhNB6X APfa9z5Jn69R46lT7HycH A+DFZgnQF4fCA3vK6pPyG pBsD6SSddX262 GvLioWFaWktcc9hww0mlz Mb6AsLcIQXynwGzpCzuXY A9u6WjNu08H73jHJovRTP oPSIyMCUiIHZh sBjoap0ouF8nSl8+PGNvb BJ9eYX1mT9kIkXqSvJ1DL vkT273GmQfcIBmJjahO32 wE1SoqVQ+PHRy Kxw9FMUppUuyIQ6etXYnT VjbQb0iSFC2LpIbLoHcFE ukR6XuLRLplzbefarnyQS 4SQQwADOyrL18 Mx3nnTiiAd1sBYVdABT5N JXzdZCpC7NgfF3iTvAuJO HlPAXvC7QttRVsQIqrB47 6JLmfZzY6DIMt zeJjV3VqJOQdpSwuXhU6i 4Y8Si8GwXlgfYMsNM9eXg LfMFq2Z6JqMhq3PSSwbMd rLH3ixFMcUTfo Tw0hpYmxlHltDL2uFDNua qbkn070WlWex1sgSVRioK LrDNmpSZV2Q87qy8A3TRL zZJZpCTV0gAK5 vU0odGcbvvdinMRlrMxgw vAqpMxpVOtiHAtnH955KJ JtxFezIcKSSkc3R9YgGde 6NGIacQykTX5q fZVnDMypVc9fzIkywCbdN J8qGWXsmgadg653SsVsj4 bmATGcfMZbUVybRYZ2A35 jg3S5BPZgFUWm UQR3bCY4hV2liVadwisux GVmdDsgdmVydGljYWwtYW yzB370LEGtgZlyDi8YYoa 9A0ZhDta2PEYf rZclWX8kiALqZXjpTy1sk HikgRszRF5eWNHeikhar3 43BoFhh2fmXJOxdLWdOYr tICR3L52ui0X2 PIDcYQKxAZP1nXW7wK9nw GlnbjogbGVmdDsgdmVydG nkWUtwHWckI018GAIvwUs nPlBheWVyOjwv dGQ+GU13hg43A9MyZyglR xo3IZRaVEV7hYG3cL4yZG PqKOfaf8T6sOG7E8IupiS dhj6bk2crJOBw ZTo (more content not included)... [facility] US LE Venous Duplex Righton 01-10-2025 US LE Venous Duplex Right EXAMINATION: US LE Venous Duplex Right HISTORY: Phlebitis and thrombophlebitis of superficial vessels of right lower extremity COMPARISON: No relevant comparison available. TECHNIQUE: Grayscale, color and Doppler FINDINGS: Post ablation occlusion of the right great saphenous vein. Heat-induced thrombosis 2.1 cm from the saphenofemoral femoral junction. The epigastric vein is patent. No deep vein thrombus IMPRESSION: Post ablation occlusion of the right great saphenous vein. Final Dictated by: Sdea Urias MD Dictated DT/TM: 01/10/25 4:01 Signed (Electronic Signature): Seda Urias MD 01/10/25 4:16 pm Technologist: KYLAH [facility] Coding Summaryon 01-08-2025 Coding Summary HTMLBase 64 WkjkgkvrGSx0iNp+PGhlY WQ+WK7IIWYrU92xnGMduE 8nZ8DJMHnIObqfGIJOYVs HYeUuisRvQJ1zhZXaSKAa IC8+RA0bFGArTjtffRSjt 2R0xLE3D40vyt5pTEiwvY M1QPAvCtGdrwxhs8lpfYb 6IDcuNmluOyBt LJEunV90JLZ2bY93Re78m AUatFPra6hhwNj9UmYkYP UrXOZ2yDywDMzzm1UvUDF vA71hpOAcd8X9 EHCycCnerXGlFkSaoBQ6h Z4hSLsptsbov7nqtgvoAc b8hy71xSNvg7A9sWT1O5G qmeA9FBTfqEEa UaeskVWZqO2zrtqhi4sae lclUrYoCSGwRYh2TWc1DA ItmJbxUdOtKJ12JEW5ZBH jlgHzS0VcTSZa qSqoXnW8i0K0Cf6RC0IUC dflX0YRXUEOCWoktIQ+PC 51wo10C7CfPustFed8MIP aDOI1gPA4yC1r XVNsLClva6J9hQM1N6Zgt wXhlr3qc4ksHXTqTTyvN2 7ggIChj5F9XBSztGH2GPH zjLcaPnJhoM34 Oyc+UZRglHuew0UnKekwx 2zli8ptkJj0NtwrCOYdtj TgtHltUAF6a7WgKr8gURB lcNJ3yRR0xQ7z NeYnLpL6AKniQ949SeQst JLjYxowY72lI2LueCM+PH ExFby2BMGvwPytBF7vH6O hZGRpbmctbGVm mNdaFZ5mFAAxktzhLJDsw A0mSUWtC4u3CmUcYjY0QH rnF4ZwXDJxgvqkUq84aL6 eWeOcPfD6UBmi O6YfwkR9CRYxqEHkUFqjC PH3F58uk5J1ULMjZYHnJT M3dCL4aH2siVsqgnsicSR mdDsgdmVydGlj NCrbXZulW982CPIrzXhdF kNvZGluZyBEYXRlOiAgMD cvMTUvMjAyNTwvdGQ+PHR zEZS9eCuwPVId kAFrLFgoXv6dgBjpzTdbK N1vUASntavgTBYadA8rKR XhkKZfmQwhDU5gHEWarkg xb074TjUwBUG9 SGVocJLfP2SdqS5jCgHiD UAmSDZjQ5FllKDjOFroB2 34GUdwNgZ4XDRiarZxG4Z sLWFsaWduOiB0 b9A4Ou1Wo6RphwkzF4Zxr ZGgKpIxMvxjBFc9H5TkVf wvdHI+BU39FLHxPU93DFk 8NNG6gVfrRXxw ASUpS2DpeM5bGzHiFCAwA GRkOyc+PHRhYmxlIHdpZH RoPScxMDAlJyBzdHlsZT0 rUt6hGAOjESDs wSzviQMaCaMhl1hxFAPkD JtwUU5kmOkaM7UlsPS6QM Scx3e0Uf22F66jA4HyfMG +WWVdrBD3sLR8 bW4oPzFcHfV2DMcbL299Q nWvjRGpWwdfa5cxz5onqU b1ChZ8UZPccjCbzTnoBKD 8v8DgPr42P99j IHdpZHRoPSIxNSUiIHZhb Wfvwc9kmA1bAt9+PGNvbC W9cRJ2nH4pMxCrEuQ0EJb dZ796UtPjxRKe Xzyaj8dve7znhUp3AmToC JGtlkBspMawYMN8r0OuWe 33Q6QvkDask3XhOmf0ev6 5oJVwp5E6iNH5 W4FaSOViroibkTHkgObnM M0tZREmhljrBIHdpT1cRL JmF3x9XjTuBmT2RXafW3T liaE1TNTuiYLq SOGfxTQBfX1xigtcb0kkx pgwSuJeLBAfVOo9NBy0WG LzsZmdTlNwQBG0ViU8XLJ 5sFNxnT5upUlc jzpadG5jVoe+IBH7bWPmh XDMHW5lGfyfhFO+PHRkIH H5gWcoMVamJMZxvU9bLSE dS2k5QoBjKoW8 PNrbJ1FgcvH3TMRfkIOrA JJpdOKXbH0vpdvxm0xihy qqWjPxZBHyNEy0UPt9PCW saWduOiBsZWZ0 DeM2HJV0wLFybM6pfLhbj fezhV2jCzn+QmlydGggRG C0LNw2S3GhKse8UAGcnMe eHJ6pxSHpGQtw My1goYsnhKqkSD2aZIVqd qgjh789JlSod3nzCKHdjU UrLKrnZGV3A55wy9P8SGS sZMAmCLL6uIP8 dT5tlIrhbqvmtMRevKhpa jEolTfcTWdzIOkiJ418FA NbhBhrWlItDTt4Q8KzMma 9WVEbtZkwTZ5m sQWtWCwjSt3yoYwguUdwH P7kGYTbrmhqy128LoAuz2 iuAJMacERzXOdxJMH6O66 pi1R8UYUyMYNw YMI9rSI6iM2ovArfbcxyy GVmdDsgdmVydGljYWwtYW qrK966RAWjoUmpUaHhjXn 5N5GnRht1KVKr xRigPY1vmQHzTXqbNc2wc JxovHbqON9nLEQvmrnos9 33BpYgr1gqZSUlcTOwBIi aGEJ9L02qb4D3 ZLHgMCYdETA3qYY4nD3ax GlnbjogbGVmdDsgdmVydG xfEXzgSZkkO604XVDwfJv nPlBhdGllbnQg JJwiSXf5P5QiDfmkySC+P U56VMWnFM86lQUjuACtp7 qnbXw9EkLvWDObGME0lWg lHEqup1YaBZOg R15ekXTec2V3LHIfxPutp JGrBsRgvAH7kP9uYQrfmn waa1aqjbhmZrwyv3tsmk1 1iF82Y13gYQbr ZHRoPSIzMCUiIHZhbGlnb l3imT1kZa8+GDBabAK2dT F3yS7xECXuAuR9SUyyK45 9InRvcCIvPjxj g7jhj0velXt4GoL9HMHqy vPbgAzyWXX1r6NdIy71O5 9sIHdpZHRoPSIyMCUiIHZ tkHadon1keW7j Ii8+RDDpsZU4eVY3fW5eP uRdDiQ5BZgvK421KzQkzZ GtWpoiT79aC2PwtPW+PHR tCrh6DLUwyMhd ZT5hiFRuTHokRi3gFFV6B bYgOsNcNFijW5WtGDSrxe exkpymrCX8CEDsSCQgaB6 9Hk5ueYqvRCFu aAHFmM3cpiefn5isdctdG iZxGFImGLe6KGm1OJVxoS qjDyHsAXS4FgU0JKH3rHQ riK1evKkzlsks kA4vM6IgBOJdpjuqXq16y A0rQwJmHyV7ACunUaj+Sk PDSCtqLDKRPR9MFYFILW7 BRTwvdGQ+PHRk MHU5lThoYVpqFARkyX9uQ RDgH2e1BmPaSiV5VSetK0 JfPKRafmzbGh91uQ5qJmM eXjX7WOvcL4Mv iqS4DFQtgFVfMVanNKJ8O 66zb2V4AHVeSMCuMOW2vL M4nS5xgEsdyfygzOJeaVm gdmVydGljYWwt NYqrW471GYVmdYjmFgOuA jGwNoV3VeU3K1TtBey7KH SqaJkhEE7jnTWwIOrbTe2 mqQitoNvwDW2f KNMlqmjlAWXqzZ9rJAKzp OQajCfzNC4eFVVzncvdd9 56XjYwQDR3MKIwjBCgR7B hiK1rHoSpLIUs ZDRxU6BprPSlPHhpZ704I VcuUqC0DLNiwdLsZ9ZfWP PlmYjtYoS0r9Z9Lv92UiZ ZZWFyczwvdGQ+ GDOzIMP4cJrlZZpwCFEmb Q2iCQNzM0h9NsXyReV6BY wvL3RsAJGdeoeyZj03mS3 iZbVjWtM9XNas X3BybrW8RGFygCCtELbqV YE5H95ho2D7FCQhLVAjXT H1gDX2nM2gzDfelzepuBI mdDsgdmVydGlj XVweDNdgR333EAEhsVieI kZFTUFMRTwvdGQ+PHRkIH B8nSsvAZcvXMQzdA7lTBC mB4s1CxYeQmK2 BHiwQ1TwZTPzweqgMu99v Q3vKnZpHfB0WOxcS1Litl F5KNNskRAeCYtfJCI7M90 ex8T6GOFaGEHc PHT0dEK5xM6lvTgguadnn GVmdDsgdmVydGljYWwtYW axP213DGGrmElwYg1KBA6 1MO91C5BzPooz dGFibGU+PHRhYmxlIHdpZ HRoPScxMDAlJyBzdHlsZT 9vQo9dUETbXGKnsAlrnMH qAzCri9nxMEJn GXswFS2liGdbQ7VdfWS0Y ONnc0h9Jm07Q75iC2OnaG A+RFBmdZU4sPR7bF7sWfQ lJiO2RTjdF991 OoTgoFIcVwrbj8zdk8oyx St1CpNdMNJgwqRkqTgtAP B8c4LqRv87K04uGVxoLSZ oPSIyMCUiIHZh eNoqyy0hhY4vCl6+PGNvb OA1lIK7vZ4cOfEnMdB9MG nmI658HtZiaAAbGcnoY00 pW8DkhAD+PHRy Wpa1XKAvoUcvAR2hnCRsJ XfvJr0rUDJ0PdPrKlGpBD doV3AgSRVpboalfondiXX 9AFTuAJCwkI49 Zd0akSbmTg4pTVLdFFD7N UXulQNcH7QrtY3qEvZuQW MyTREuC7ZluBMqSTdnA04 7ALwnFvK6CTDk nbEeI5CbUXSbpThjIxD1m 1K3Lm9SyKgskUWlBC5cNf NfNWj9G7LaGvf5EULghWv rNZ3zwOJsWIsi Nn4dnSpjnKzxFF8wPAAxn tcpn740SbOun6kaZGItvQ NxVImiWED2L87la6W6DQS iFVSsDGH9cGE8 nZ4rpBqqxxbxaYFluIogn aClmAnmTJunXYiyK168SK HikPpcVkQEMvm4S0KiGie 5FEFwuHcdGY6i uCPnGEocYt0kkRaatLacR E3mITAbivmjq209OlGdh5 gzUTMwnQMwJHgdKBD3P24 hb5Q0KNGfOYGl HJN8hBC8mI0yfGhjbvura GVmdDsgdmVydGljYWwtYW rnL080CDCqvRceFk5DLhh 7X8IbJkh9EODl ySedKT4gyUKhTJzgVc1jd WxpnVsaPV8pPBBmiwith9 49DeLhu4qiUELcpYGkCQv qMSC3E91rg6W0 MNMuMLMrBVN9gCQ1lA9fy GlnbjogbGVmdDsgdmVydG ytFCffWEozP654QCCbeFg nPlBheWVyOjwv dGQ+XF75kp81X5VqGgfqN va8ZOKjNGK2uJQ6nY9qDN JwMHjli3Y7cHE3Q3RpadD qru5fg6nfCBKy ZTo (more content not included)... [facility] Coding Summaryon 01-03-2025 Coding Summary HTMLBase 64 XutldkqpDDn9gYk+PGhlY WQ+QF9NVUAkM29yhMLpdC 3oM2XSRBzUIqulUXQNYTi ZGyHnjaMvMY7yyYSmLAOr IC8+NE5gXBDcWhwgfOWff 8P6bSO7C77mvp2pMSvizR Q2QVKcTkMpxreru7jenAf 6IDcuNmluOyBt HRVmeM03BHV3fB60Zu26f NOxzHPxi0bqbXt6WmLqUM OgYUE7iNltHNafh8XqZQU sB60wjZPtc4E0 IZUssOmotJWiZdZqiIS1v V0aGGechzdqx3qmcbqsDj o2lr44bGQkc5X6oNS1T4Z obxJ8JFWsbGHn ZgsmrZSCrR8fcfalk4mjt svkHkOoZXCrXBp9NLt8XL JwlRgmJaPaES71GHW5VYE mcpJyU4NxTQQz gYkjJvT2a1R3Zx1FV8FGF sypX0MYPXBTMTubwJW+PC 27xu17O6RxQtuuAji4UHL jAEO1eGM6oQ5x WHKtMKfmp7E8dWQ7H6Xah qWzfx9jh2ksOCEnAHkiN3 8vxKWyf7C7QSNapXD9QYW idUnsQxQdrA45 Oyc+PWTtyEwhr5IaTlinh 8wyf3jgvFg3EmxlOOJyof SzvEwlBQG4b5KfVr4eNRO ekKN9kDE8hD7f KpMfHnG8GQdbS494JcIdv NDyJryvE10fZ5JaoJH+PH IzOnj6XRMqpOyePK0hA3O hZGRpbmctbGVm iPvaRE3iYXRigxxnDBPsr R4rHBNnB9c1ZwPnOaF4KL dvW1StCSMjtxtyFu90yY0 fFbVnJaA3IBtr H0GybzW3ZZNjzKEvDBdsJ HJ6D67tv5F4MNSzJXEcWO U1kME2fV7vmRmfcdozoMK mdDsgdmVydGlj ZQziHAreI761XJCakJxgB kNvZGluZyBEYXRlOiAgMD cvMTAvMjAyNTwvdGQ+PHR eCQX5aDnsVTOs nGTxDBxiNj1fiVsmrGvrY M0eEBNhdtqqCQNdzJ3jLX ZlaVWtuRehQS3hVOHqrjq ms504HrCuSQO7 IPJkjXEbO7AerB6eArDeE QRnBEFlQ4YrjGAzNWjxZ1 58CThhYkV2PUApmmUyY3D sLWFsaWduOiB0 n7J0Jt6Xb6RlfnqjS0Mem SVyLeHjWifcRMw0J4ZoVo wvdHI+UF27RVPvQP91BOk 3TJT3oEldSEpg XHZeN7WgnR7mFwYlHFKqO GRkOyc+PHRhYmxlIHdpZH RoPScxMDAlJyBzdHlsZT0 oXi0oSJJhQJNb sOiusVAzVgOly4yoPYNzW GdvXQ1pkJhnP3TduSI8MT Mbi5l2Sw36K77jM3RewLO +IYXysFE1xLZ6 oE0dBcVhUaM6JKyrI729X tThuVJgOxlqm8dmj3vfoF c0PbP3EVRaacGktXllZED 7z5ZdTm32R79h IHdpZHRoPSIxNSUiIHZhb Tcxak6ywK7zMs1+PGNvbC G6sJQ4hP7wXqQyZvP5DZq wS788FoJqwUPs Lovcu6btl8vhrDp5EpEqO EPxrzDmvRlbLHY9v8GcFn 40I3YrgTkpc4AoOwo8dk9 2fTIgz8X2zMQ5 N1GqHRBqjyihkMWidZxcP Y7tMCSzmmrgORTcnU8rBN BqS7o3XiGxSnU6QMtdQ1P lvtD5MUTfnSMq TOIpgYNKkQ0xitgdx4lbq jxeOnTbDSOlCIw2LTf6OW ArlKojJjSqWYZ6ZmP0KLO 2uYLhgN3ysKxy cscwzK6nLqh+SVH3hRRfy BIFVY4uVqqqeKW+PHRkIH Y4mZgsARrrRRGxcR5mRBG wM2r4HsSdVdJ1 WIonO4JxahM1EUHjuHXgR ERdrYDAdQ3rcwrey0binr esNzLbRMNbWHh8NBq3QKL saWduOiBsZWZ0 PaL6FTB7yZIyzP7gnErvz hvsmL4nOar+QmlydGggRG Q2SRb0R4BpGtn1GBCywEe wQD4ojKUhWUcy Ln8adXqujLjlHP5uTTAfu skxt055ZeMrv5yaZYXflA QeAZzyNEB7J47tq3B4DNQ rCNWgZPU7aXH9 zR5ebYlzqwcruTRrmBxya qVyjZseUSleQBboL307QU JviZjrRqRzWXf8P0JwAio 7DRJoeNqeTJ2l yWHfROdfCg1knJvjaAqxO A8hOIHliomjz711JhLac0 fxMFVghRVeGBnwCVB2Q37 dj6W9AFPqGXHv XAQ7vSQ5lV8hzAuvhdzsr GVmdDsgdmVydGljYWwtYW bqK918QYRjqHaiIxVcrXn 5V0CgKlj8TYLz lIuuQG5pmACtLTbdFq6bw UqpaPqxRO3gMTTsmofwc1 28AvQdi0jsBFClnREmSRo sKSV9I77zd5O6 GEPkEIYcXYO7cMS7qD6xx GlnbjogbGVmdDsgdmVydG voERigKBpgJ298FWDllMa nPlBhdGllbnQg KVdtLXh9Z1TcUvyjwPC+P H98CLRcKU23fWLbhSPph6 jqvGh2FbSpBYAeFLZ7nSp hROzel2QzTXMp Q28wdRYcq2U0TCUehIgrr FVqLgGrpEJ8cX8dXRzxfc tmq9okabtuBmazf9mgzq3 8lE59C75wWSiu ZHRoPSIzMCUiIHZhbGlnb p5vrB8aGh2+AEKygVZ0lN P6sX7cBUAdWoB6SDwjG59 9InRvcCIvPjxj f1icv5wzvQe1XwD6GYMjw nUmyBhxGAZ0g9PfXs56V9 9sIHdpZHRoPSIyMCUiIHZ hfJhxkz2ziZ6r Ii8+QQJotJI2lHC0kU9mX bXxGvW3HAhcE710BuXpoF VjCavqS30hE6SbtHL+PHR fSkl2TFLdgRfc TW9cqPDlELflPe0mNYX0O cPfXaEyIRmkV0YhFFHgka kjhkboaXM2TKZqEAUvjY7 7Tj3fiZlzSSBt fQSJgR6yitvfe0musonmK jRyKNGxKBd2WNd6NUPjcY pgOfWtDZZ3DnQ5TPG2nCV fxX2ubQinzlpz tO5hX0OhAAUealgsRc07z P6eDwFgVnC8KOlqNnj+Sk RPLEgdITYZAE4UMUSXAU4 BRTwvdGQ+PHRk JLM1tLdbXAjyVMTlkQ0iR UCuT7g3SbMcZrF4TMcdJ5 MeORLnhbapPp43mL7gDzU uZvK3MPczF0Bg lhU7EEHuvQLfMTwdVBW1U 27ov7I6DMSaULKoQCO9zR P4xJ6jbCqvhptukFGmbMo gdmVydGljYWwt BMhgL587IBUtlGipDuXuT tCvQvI5EvY6V7WaNfq9PS BdsVljWF4rvEBfMHkwMn6 qrUqdmQclBA8d JKLatxrfRHPyhI4yPSLnk CFznDobKS1dUPWvkjosi3 89JqZpOIL2CULxnOXaV9Q waM7pOrKhXBEc GRSpM1JvnTBwDQujB365D JzvAtT4TKKxvqUkT5KvWE PesFlzHoJ1o8F6Vs54DoS ZZWFyczwvdGQ+ IVIkHTB6lIuxXXogYEDqx A3sCRHkA5w3FzAfJsT2TJ qhI3NhLSIifuhwHp31kT2 cZgSbQyB0LKgp M2OxhoM5XXAccFVjJAxxH QA4N13fn4R6STFwJRYkLF M4jMW3nL1auZyibczqaMV mdDsgdmVydGlj SNucGYhsA002RGZsnQynK kZFTUFMRTwvdGQ+PHRkIH K5bXpmGVrgETPtjT1aYLN sE5e2WqIxPiW3 ZJpeC2AxTOXuixhgLj43o T2mFvIiZzT0MHppZ3Qxit M0PFHadYFyXSpvDVQ2T00 zz7R6WWGuDYWq ZDL0sPQ8lE5dlMiazrnzp GVmdDsgdmVydGljYWwtYW vxN414MQCacPndGc1TXV3 7DD94V5DkTzlk dGFibGU+PHRhYmxlIHdpZ HRoPScxMDAlJyBzdHlsZT 0lIs4xDSVsTCCtbGwotLU gAyFtn8edDJUr WAiaHH7xyIzbN4IxaNE4W URoj2a7Nc11F60rY1YfjM A+RKQesSB0vHA8iQ6gPkE iCnB5OZibE129 XiLgwRClGrsyk8dos7zrg Ep3FnZpIXFaxoQupKhqLY Z0y2DuWd43I77qXQctUZP oPSIyMCUiIHZh bKzpfo6imN8qRn4+PGNvb EV1xPR4rM7nIkPjSxX2YL lfB631LmOscILhUifmQ62 gH3VpuBR+PHRy Gaj5RWNxsGjoLY2qkVRdH ScoSe4aFDS7SpCwScOqZC yiJ7MoBXQslucjqqxyuVJ 9TUPhRWUodJ44 Uy4mrAxdGh2iYJYeTAN3A TNlzUAlO0IboB3qYrYpQX HiRALlT5VbgAOiPFmmX82 7DVllJbA2BPUa ktPcR6IgQMDkbUgoNzE7y 5C1Ho7GkVbucPSqCO8wTv NnGHe7O8SeXyf4UDNfjHd pLW7ukZVnTToh Ds8qqMtdbIltRC9wYCGgr fewu060VxXen8xoDHUhwR HsWAuhOJI4C49xk0B9NLZ oWSWuLZW9fDG3 zZ4kgTkbrycfwVKnoHieh uNbjCovICprDUyvH870FE LmrRygEeQQLla7G2KnOvl 9NUWgfVucGW0p pHByNJraFr4icJyxwKkbE B4nDPTyrisrm172UrRdk2 rnKEKnaIEqBQmbZVB7F51 ll0A5TVMgMIOp UEP5mHW3gK6sdSyvhlzpl GVmdDsgdmVydGljYWwtYW yaD288EXPcxAcuFe7TTku 0W2UbKuz4YEVi rDhfEI3xvBHsASikVk3zc ZqhvUnwZN5cOWVonykvf8 36BoHww4tmWDBkoYLxHNx uNIF1G94en1S0 SXDuTIEcBHA8oCM5gL2gq GlnbjogbGVmdDsgdmVydG biZSayTDgwH555LQMalZw nPlBheWVyOjwv dGQ+RY08bl40J6SuDkrcF eo1MFYoMUS6eNS5vW3gEO TfXLnqo2E8hCG3Y7VdbjA hml1sd5kxPIJd ZTo (more content not included)... [facility] US Endovenous Ablation 1st V hussein 01-03-2025 US Endovenous Ablation 1st Vein EXAMINATION: US Endovenous Ablation 1st Vein HISTORY: Varicose veins of bilateral lower extremities with pain The risks and benefits of the procedure had been previously discussed, and were rediscussed at length. Informed written consent was obtained. Mera Connolly and Joy Majano RDMS, RVT assisted. Time out procedure was performed. The right lower extremity was prepared and draped in the usual sterile fashion to allow knee flexion in the sterile field. Duplex ultrasound probe was draped in a sterile cover; sterile transmission gel was used. Venous mapping was performed with the areas of dilation and large tributaries marked. The total length was 38 cm from the entry proximal calf to 3 cm below the Saphenofemoral junction. The diameter of the right great saphenous vein ranged from 6.4 mm. A 30 gauge needle and 1% buffered lidocaine was used to anesthetize the entry site. A 4 mm incision was made with a scalpel and the saphenous vein was entered percutaneously under direct ultrasound guidance with a micropuncture set, a single stick was successful in gaining access. A micro-guide wire was inserted and the needle removed. A micro-set including a dilator was inserted over the microwire and the needle and dilator were removed. A guide wire was inserted through the micro-set and guided through the saphenous vein to the saphenofemoral or saphenopopliteal junction. The dilator was removed and an introducer sheath was inserted over the wire until the end of the sheath entered the saphenofemoral or saphenopopliteal junction. The dilator and wire was removed and the 600 micron fiber was introduced and placed and positioned so that it extended beyond the sheath and was 3 cm distal to the saphenofemoral or saphenopopliteal junction. Final position of the fiber was determined by ultrasound guidance and duplex imaging. Tumescent anesthetic was delivered by ultrasound guidance. 100 cc of fluid was delivered along the entire course of the saphenous vein. The solution consisted of 1000 cc of normal saline with 40 mL of 1% lidocaine and 20 mL of sodium bicarbonate. A final positioning check was made. The energy source was turned on by means of the foot pedal and the fiber and sheath were withdrawn appropriately. The total number of Joules delivered was 2056. The laser was active for 257 seconds under continuous pulse; average laser use of 8 J. Laser start time: 9:40 AM Laser stop time: 9:49 AM Date: 01/03/2025. A duplex ultrasound revealed compressibility and flow at the saphenofemoral or saphenopopliteal junction immediately after the procedure. Hemostasis at the access site was achieved. The skin incision of the saphenous vein was closed with a 4 x 4. A compression stocking was applied. Postop instructions were given. A follow up appointment was recommended and scheduled. The patient tolerated the procedure well. Final Dictated by: Janiya Matias MD Dictated DT/TM: 01/03/25 10:57 Signed (Electronic Signature): Janiya Matias MD 01/03/25 11:07 a Technologist: [facility] LE Venous Duplex Lefton 0 01-01-2025 US LE Venous Duplex Left EXAMINATION: US LE Venous Duplex Left HISTORY: Phlebitis and thrombophlebitis of superficial vessels of left lower extremity COMPARISON: None. TECHNIQUE: Venous duplex examination performed using B-mode, color flow and spectral analysis. FINDINGS: Post ablation occlusion of the left great saphenous vein is observed. Heat-induced thrombosis 2.0 cm from the saphenofemoral junction extends to the distal thigh. No deep vein thrombus IMPRESSION: No deep vein thrombus Post ablation changes of the left great saphenous vein. Final Dictated by: Seda Urias MD Dictated DT/TM: 01/01/25 8:24 Signed (Electronic Signature): Seda Urisa MD 01/01/25 8:26 am Technologist: [facility] US Endovenous Ablation 1st V hussein 12-25-2024 US Endovenous Ablation 1st Vein EXAMINATION: US Endovenous Ablation 1st Vein HISTORY: Varicose veins of bilateral lower extremities with pain The risks and benefits of the procedure had been previously discussed, and were rediscussed at length. Informed written consent was obtained. Mera Connolly and Joy Majano RDMS, APRILT assisted. Time out procedure was performed. The left lower extremity was prepared and draped in the usual sterile fashion to allow knee flexion in the sterile field. Duplex ultrasound probe was draped in a sterile cover; sterile transmission gel was used. Venous mapping was performed with the areas of dilation and large tributaries marked. The total length was 31 cm from the entry proximal calf to 3 cm below the Saphenofemoral junction. The diameter of the left great saphenous vein ranged from 6.9 mm. A 30 gauge needle and 1% buffered lidocaine was used to anesthetize the entry site. A 4 mm incision was made with a scalpel and the saphenous vein was entered percutaneously under direct ultrasound guidance with a micropuncture set, a single stick was successful in gaining access. A micro-guide wire was inserted and the needle removed. A micro-set including a dilator was inserted over the microwire and the needle and dilator were removed. A guide wire was inserted through the micro-set and guided through the saphenous vein to the saphenofemoral or saphenopopliteal junction. The dilator was removed and an introducer sheath was inserted over the wire until the end of the sheath entered the saphenofemoral or saphenopopliteal junction. The dilator and wire was removed and the 600 micron fiber was introduced and placed and positioned so that it extended beyond the sheath and was 3 cm distal to the saphenofemoral or saphenopopliteal junction. Final position of the fiber was determined by ultrasound guidance and duplex imaging. Tumescent anesthetic was delivered by ultrasound guidance. 100 cc of fluid was delivered along the entire course of the saphenous vein. The solution consisted of 1000 cc of normal saline with 40 mL of 1% lidocaine and 20 mL of sodium bicarbonate. A final positioning check was made. The energy source was turned on by means of the foot pedal and the fiber and sheath were withdrawn appropriately. The total number of Joules delivered was 1443. The laser was active for 192 seconds under continuous pulse; average laser use of 8 J. Laser start time: 3:39 PM Laser stop time: 3:42 PM Date: 12/25/2024. A duplex ultrasound revealed compressibility and flow at the saphenofemoral or saphenopopliteal junction immediately after the procedure. Hemostasis at the access site was achieved. The skin incision of the saphenous vein was closed with a 4 x 4. A compression stocking was applied. Postop instructions were given. A follow up appointment was recommended and scheduled. The patient tolerated the procedure well. Final Dictated by: Janiya Matias MD Dictated DT/TM: 12/26/24 5:55 Signed (Electronic Signature): Janiya Matias MD 12/26/24 6:53 am Technologist: [facility] Outside Recordson 12-04-2024 Outside Records [id number] [facility] Coding Summaryon 11-29-2024 Coding Summary HTMLBase 64 LokyeysyYIi3yNl+PGhlY WQ+BA8QYVZdC68hgAXdoM 1kH6PZZWmKMeemPSXZMCo ICiNrsdArJM6ygJFwYUNr IC8+SU1mKSOeCwtwdBBti 0U5bSJ3Y87uwt0vXHiijA H8NDNdKcHlqqiqr5gciDe 6IDcuNmluOyBt CZFuiY39FYX5eC93Ak62x PNvvCIng4erqRd5RjUaCX KcORK0vLxdFTzwn8LvBNR cI09yzDPlu1I6 TWXthDlcqYSuKsGwiCB9k E4mJQeidupct9gqlvbeDd u2cg84oQFya6J0fQF1E2H xuzF6TNXjbSVv MwbimRKSyP0ofemvp9zua jhfKyLhSMRnMRq4BEm7JF ZbrIyxOlIcSF84CER7REF lhlFxN1BhMRPj gRjhTbJ6t9Y1Tj2UJ6BOY drtX6AHMDBUAAqnfVL+PC 93zp18O7XkZmpaRxv5DLU yBGA6tMQ2yY8a DQZcDXjmi8X7xTB4D6Lnd aMcbp2hf4lkYNNrIKqqN6 2qoMHaa2C7TDCaiQN6BWP vcQzoSqGfhH18 Oyc+UMRegTyfq0GxVpkjv 0xsy2acyJb0BoyrSFPavw ByuWpmSYX9a9MvWg9iDUH ydUC7vPZ1jT8m WiYoEfH0OChtM227WeNix TKcOdowC86zR2ZocFS+PH MxByo6TJYhsOhmTA1dE8A hZGRpbmctbGVm yGquGC8fFWQgleliWQYac R9uEJUwK5w4KkXsTnI4VS doN5SiZOJlnzrvJf49kE0 nQdAjQiZ7EJvs R6DozcG8QQTvjRVjGDiuV PJ2S74ce3E3USMaCLSdJN C9oPG0iV8vcNtcqyvxgUM mdDsgdmVydGlj WGryKDazN913ZVCufFmgS kNvZGluZyBEYXRlOiAgMD YvMDUvMjAyNTwvdGQ+PHR lLLY9rObwKPLk jQKxVCefIt9kxKltcYrwS B9sWXVijoreZCZjmV1eAM ZrmJCstMlsCL0zXDFxwqv pg008EfVeWAP9 URYxmGQiX7QfaQ5uVzYuE TNbEBHjU7PewIIkRUlzN9 27ZVxkToW9TZWhpgPxH8K sLWFsaWduOiB0 i8T2Fn5Yf9PhqoepV2Ngu IGbSrNbXbtqTKw2U1EfQb wvdHI+ID46ENXsBS70PEm 9KHB9cMiwKDhk GHGeJ9VapU2uSjKpBNGaY GRkOyc+PHRhYmxlIHdpZH RoPScxMDAlJyBzdHlsZT0 hMm6sONQbSWDv mEcxbTPwZuTyi5daPUGmO AdjMK0fzTtxK6OftVN4IH Rrl3c1So43I73uJ2ZfoMJ +BLBwuIO4tDB6 oL4pRjRtClA6ZEubC040U uWjmZRhZdghi7qdj0jjjB k4YqU0HDQjjoHpbUccTRK 9t5UeYg21N90i IHdpZHRoPSIxNSUiIHZhb Ightf0ecO9yGm6+PGNvbC T8kCM0bX8sCbUwGhS4ABc eE789DpKxrZId Fblag5ojw9nhlZi5IsUhF KYutyOqoDnpZDC5x8SaWp 14K0MqkXxki3RyHps3xs0 8sHKds2O3sTY2 I2GyKOAopbvcoWYrkWfrM M7mSNKdsqhgGBFroM3lCS ReV7q9NdExAfX7VWitJ6R nalJ8PKGayODt YMSutGVBxF5fnermf7nvd jaiZsUqZROyIWq2ZKo8HN WdxJrqFxDoYQZ8ZuL1LZV 0fNAnaG5tcXxh zyfwwL6uEfi+ZXW3zAOde EFPTH2iLdgbnMS+PHRkIH Y7lVvrZQysVKHseZ0yIGV vP1k3MaPhQmM0 CNupI8QoxrC2SNWolQKbP YUmyHWDqF3kphvto3vpnj jzDgWsVTPbMJd3RDf0RIU saWduOiBsZWZ0 GoU2BAN0mTYqvV9nyAdcj wnuzF6cIyd+QmlydGggRG D0YHh5O5QyLtt3MGHdjSc fKR9mbXGqBPca Zt5gqGudeAlqIJ0kPOAke jopp497PsTjr4tuZRLlsD BbGKngHFS2R31ay6J9OTX yUJJgBRN0uVT8 cE6rsJqhxeszeDXawMfkj uDtkCncBBwvYJoiR558PJ NdjOgnNpGlYOc9H0BdWmr 2FNYzmEseTM5x aCAiKUtyFq6yvEexvVbbV C3wOYHrzbmrr279GqTfv9 vwLMDadVIfWRgzVOQ3V29 zd3Y4ZOKmKBEr CAX0hCF9dC6qoVfgttmxv GVmdDsgdmVydGljYWwtYW dnR925RXHxmLmtXwSsoPy 0A9EcJnt9XGOo eWapGF8rnICuWQkqLb0aa EqxkBguCI3iGQQujbbxs6 78DeUrn1qnKUTtdIZfMMw dTHR9T83ho9I7 WBLcZOXhSOF6bHD3hE5ij GlnbjogbGVmdDsgdmVydG evVPiaUBkhF633JYNgsOp nPlBhdGllbnQg BBreDJy9L1CzKeyvlYT+P M23WMBhSM18iJEnhAUpk0 hpqUz3JoCaLWQzUNE7uMj aNZbbg1MxCXVv G05ayYOdr5R0GHFxoHghg OAjRvUezRC3vO3rEVypgd fzr4rtvcajKtmhc1dbcd9 7cZ51E82vAJab ZHRoPSIzMCUiIHZhbGlnb y8wwW4iJs6+NYRtcEY9jI H6jF5xCBZkRmT1DWwbT59 9InRvcCIvPjxj u5uni9aznBm8XcW3CTLxj nTafNvsNLF6s6EnDh62H2 9sIHdpZHRoPSIyMCUiIHZ klOqocg1lbR6y Ii8+HXGebOW2cBV3zO6iU wSaKnV8OHtmU908HmPkuN JdQqmeS77rD4RxbBE+PHR cRkn6GZKsgEio MF6trTMjRKicUs7yLSQ4F rXjMpNxTCrkH8DmUHAiog wfhsijvCU7QXKkAYQaqL9 9Lx5vpTazDQLq dNNGbD4nbzvuk6uprmmfP tWaTNKaCXe1KFf7UKFybA mlCqZpCFX3ThW1FKE6oVE elE9weKolktse vI7gN5QiONJngqadFs31l Q9iPlBlZwK2OCmmHyz+Sk QXYWnhPSKTRJ8FTKgdzBU +WMQaHBU3hOny IKbgKSOjeG2wDAVdK0u0O yVbXgP7UNliZ4DwVCGweq jwAa54fU1iThGdZsV0GMa qR8YkhtX1YLGa qGKqTSacRQR3W06vs8O5P LZoTOUnZOB7oVL7nI5kcW lnbjogbGVmdDsgdmVydGl iYNibXHvhW228 UVOqbUfkByCiLqBeYxN2W iI3G4KnWkd4IWQqtBhiNW 4aqUNkMXpxSj9uqRfkcEt wZK1yOOLtoyhg AXKalY9eUVFcrGQvuUrvP N0jPKHltcsyk566HjNrKN T3YCAbyNEwU5EfzA6mPrO qKQInFLNhY0Vt pMZqWQssB412MMhhAwY1L FBbjoYhJ1WrQAHcsKorNl L3c7F7Xw73MpMEMPVqwrm vdGQ+PHRkIHN0 kJssHHmoNRWezI7zCZPbG 9t6ReIcZtJ8QOseE5IgCL YomoaxBc39fY5iKkIsPxN 8MQbrG2FhabI4 ROEpqQNjQFzqNCM4P26if 2R9ZIWbXPTgXML2rPA7uD 1hbGlnbjogbGVmdDsgdmV ydGljYWwtYWxp X162IZHwxStwKpZNOGNDU TwvdGQ+KERuQCA6aCtyKE tcBXAaeK3pJMFsJ6s8TgI aHmC7TFecE3Ey XKMoqregXi00zZ2kUcNfE uR8WLwjY1RoewZ0YRXbgJ ZrBNhcTFE7B89ak6X6ILL dZQJrVFG5bVB3 xC9gdEdxgtkzaEAgcHjmb sZdcGvuWBqcMPaaP900MQ XztZebPa3YGE00UA30D1S yPjwvdGFibGU+ PHRhYmxlIHdpZHRoPScxM RSvDrGfpQwiZF7lNw3fUH OpPRMqjPnpfWLeTcXvu6o jZIHfZNfxSJ0k pCkbS6MpkNA5XGXvm4z6J j06L37wF4ZbiGC+PGNvbC K6uGZ1oY4mKyYbIkI9IAb bH329WdAbtYMm Coauk9nda7gotXp2EqQcS BRlazWstXweKSU6p9IyBb 57O93xPRuaRGMiAQKdSDG xJNHtoKgmph6n kB3oAp7+OBOfeOX8fHQ5h C0fNlRzCeO9LFatZ168Yl WaoVVlHjtmS00uZ6XjfBS +XLZeKsq2ZOGx gQpvIP4wrYFeLSehZt2zR TS4PvKxZpDsAQxvJ9ZcTZ HyjtdthiknfJR0GOLwIXS jdV18Fr3svVvj Km5sCUDyRRV7IBWudJNsR 3PgqO3wKpMkMHNoTPJrF1 NogMAjLTzdU246RInhYmA 6ALJggoUfZ2Xs MAEczIlpTjA5i6X8Rv4Cx XgesDZmVY2hOyEzZLg8U0 ZfNdt7TUGqaOoiWL0kzLZ bBIllCy8rgHvv fWgqUS9vMOZohcmru002P nDvy9aqPIUmcJYfTBwkXN F8S82yk9D2XBCbQGEjWYJ 0lGR8gK7jwFuw bjogbGVmdDsgdmVydGljY QkhUEkdJ950FJOabHzzFj KWVyr7T1JhOnz5SSWmiYr qFC8obJHkODsd Xh2eoPcwcBylBC4jAYEme fhiz447YnBqt6obMIKseN YmAWzqDIL4J64mx4C5EOA jZRThDUF2nPS7 iJ0eiQbjnbwoiVRxfRydc dQraUwkHSsaRAfvN296VO LfgZnnNw4BDxz6K4TcFsr 6JNRuyQzlHQ5d xUQoCOnxNs8xaCvnaDujI I2eAOYkmhzbs619DtXji6 ujFEBtqLKcBYbsKGJ1Q61 dg2B6XNFrEUIc DTJ3gBC9mW5liAodlrqzw GVmdDsgdmVydGljYWwtYW gtL281YPWopOooUqYhnGP yOjwvdGQ+PC90 tl74X7ErXvadJqi0BUJsK CO9hGQ2rK7mFGTpGYcln4 U4oUP7L9KqevRcic4gy5y aHQKqCUxmR05o bGF (more content not included)... [facility] Consent Forms - Physicianon 11-28-2024 Consent Forms - Physician [id number]# [email or web address] [facility] US Venous Insufficiency Bila ton 11-28-2024 US Venous Insufficiency Bilat EXAMINATION: US Venous Insufficiency Bilat HISTORY: Varicose veins of bilateral lower extremities with pain COMPARISON: No relevant comparison available. TECHNIQUE: Duplex imaging of the lower extremity/extremities to assess the deep and superficial venous system for the presence of deep or superficial venous incompetence and to document the location and severity of disease. The study includes evaluation of the great saphenous vein (GSV), anterior accessory saphenous vein (AASV), and small saphenous vein (SSV). Patient scanned in reverse Trendelenburg And standing positions. FINDINGS: RIGHT LOWER EXTREMITY: GSV: Diam (mm) Reflux Time (sec) Saph fem jctn: 6.40 mm 3 s Proximal thigh: 6 mm 3 s Mid thigh: 4.30 mm 1 s Distal thigh: 5.70 mm 2.60 s Prox calf: 3 mm 4 s Mid calf: 3 mm 0.90 s SSV: Saph pop jctn: 1.70 mm 0.0 Prox calf: 1.60 mm 0.0 Mid calf: 2.80 mm 0.40 s AASV: Prox thigh: 3.80 mm 1.80 s Mid thigh: 3.40 mm 0.90 s Distal thigh: 5.70 mm 2.60 s Thrombi: No acute or chronic thrombus visualized. Compressibility:Delfina l. Flow: Mild deep venous reflux. Perforators: Distal medial lower leg 2.9 mm with 1.6 seconds reflux. Mid lateral lower leg 3.2 mm with 3.8 seconds reflux. Tech note: Varicose veins: Proximal medial thigh 4.3 mm with 0.9 seconds reflux; proximal lateral lower leg 4.0 mm with 3.9 seconds reflux. LEFT LOWER EXTREMITY: GSV: Diam (mm) Reflux Time (sec) Saph fem jctn: 11.10 mm 2.70 s Proximal thigh: 6.90 mm 1.60 s Mid thigh: 4.60 mm 2 s Distal thigh: 4.90 mm 1.80 s Prox calf: 4.40 mm 4 s Mid calf: 4 mm 0.60 s SSV: Saph pop jctn: 1.80 mm 0.0 Prox calf: 2.70 mm 0.0 Mid calf: 2.10 mm 0.0 AASV: Prox thigh: 5.50 mm 2.10 s Mid thigh: 4.20 mm 2.20 s Distal thigh: Thrombi: No acute or chronic thrombus visualized. Compressibility:Delfina l. Flow: Normal. Perforators: None Tech note: Varicose veins: Mid medial thigh 5.0 mm with 1.7 seconds reflux. CONCLUSION: 1. 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 2. 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 Final Dictated by: Janiya Matias MD Dictated DT/TM: 11/28/24 4:21 Signed (Electronic Signature): Janiya Matias MD 11/28/24 4:23 pm Technologist: KYLAH [facility] HCG ( test) Ql (U)o n 11-22-2024 Interpretation and review of laboratory results Normal [facility] Preg Test, Ur Negative Negative [facility] Health care [facility] Patient Handouton 11-12-2024 Patient Handout Cardiovascular Varicose Veins Varicose veins are veins that have become enlarged, bulged, and twisted. They most often appear in the legs. What are the causes? This condition is caused by damage to the valves in the vein. These valves help blood return to your heart. When they are damaged and they stop working properly, blood may flow backward and back up in the veins near the skin, causing the veins to get larger and appear twisted. The condition can result from any issue that causes blood to back up, like , prolonged standing, or obesity. What increases the risk? The following factors may make you more likely to develop this condition: ? Being on your feet a lot. ? Being . ? Being overweight. ? Smoking. ? Having had a previous deep vein thrombosis or having a thrombotic disorder. ? Aging. The risk increases with age. ? Having a condition called Klippel?Trenaunay syndrome. What are the signs or symptoms? Symptoms of this condition include: ? Bulging, twisted, and bluish veins. ? A feeling of heaviness in your legs. This may be worse at the end of the day. ? Leg pain. This may be worse at the end of the day. ? Swelling in the leg. ? Changes in skin color over the veins. Swelling or pain in the legs can limit your activities. Your symptoms may get worse when you sit or stand for long periods of time. How is this diagnosed? This condition may be diagnosed based on: ? Your symptoms, family history, activity levels, and lifestyle. ? A physical exam. You may also have tests, including an ultrasound or X-ray. How is this treated? Treatment for this condition may involve: ? Avoiding sitting or standing in one position for long periods of time. ? Wearing compression stockings. These stockings help to prevent blood clots and reduce swelling in the legs. ? Raising (elevating) the legs when resting. ? Losing weight. ? Exercising regularly. If you have persistent symptoms or want to improve the way your varicose veins look, you may choose to have a procedure to close the varicose veins off or to remove them. Nonsurgical treatments to close off the veins include: ? Sclerotherapy. In this treatment, a solution is injected into a vein to close it off. ? Laser treatment. The vein is heated with a laser to close it off. ? Radiofrequency vein ablation. An electrical current produced by radio waves is used to close off the vein. Surgical treatments to remove the veins include: ? Phlebectomy. In this procedure, the veins are removed through small incisions made over the veins. ? Vein ligation and stripping. In this procedure, incisions are made over the veins. The veins are then removed after being tied (ligated) with stitches (sutures). Follow these instructions at home: Medicines ? Take [id number] and prescription medicines only as told by your health care provider. ? If you were prescribed an antibiotic medicine, use it as told by your health care provider. Do not stop using the antibiotic even if you start to feel better. Activity ? Walk as much as possible. Walking increases blood flow. This helps blood return to the heart and takes pressure off your veins. ? Do not stand or sit in one position for a long period of time. ? Do not sit with your legs crossed. ? Avoid sitting for a long time without moving. Get up to take short walks every 1?2 hours. This is important to improve blood flow and breathing. Ask for help if you feel weak or unsteady. ? Return to your normal activities as told by your health care provider. Ask your health care provider what activities are safe for you. ? Do exercises as told by your health care provider. General instructions ? Follow any diet instructions given to you by your health care provider. ? Elevate your legs at night to above the level of your heart. ? If you get a cut in the skin over the varicose vein and the vein bleeds: ? Lie down with your leg raised. ? Apply firm pressure to the cut with a clean cloth until the bleeding stops. ? Place a bandage (dressing) on the cut. ? Drink enough fluid to keep your urine pale yellow. ? Do not use any products that contain nicotine or tobacco. These products include cigarettes, chewing tobacco, and vaping devices, such as e-cigarettes. If you need help quitting, ask your health care provider. ? Wear compression stockings as told by your health care provider. Do not wear other kinds of tight clothing around your legs, pelvis, or waist. ? Keep all follow-up visits. This is important. Contact a health care provider if: ? The skin around your varicose veins starts to break down. ? You have more pain, redness, tenderness, or hard swelling over a vein. ? You are uncomfortable because of pain. ? You get a cut in the skin over a varicose vein and it will not stop bleeding. Get help right away if: ? You have chest pain. ? You have trouble breathing. ? Y (more content not included)... Normal [facility] IGP,APTIMA HPV,AGE GDLNon AGE GDLN ACOG TESTING Note . [facility] Comment on above: TESTS RESULT FLAG UN ITS REF RANGE LAB Clinician Provided Cytology Information Source.............Cervix;Endocervix No. of containers..01 ThinPrep Vial Age Algo ACOG Berta... 3065 01 FLAG LEGEND: L-Low Normal,H-High Normal,LL-Alert Low,HH-Alert High <-Panic Low,>-Panic High,A-Abnormal,AA-Critical Abnormal Performed at: 01 =G [address], [place] [address] Verna Velez MD, HPV APTIMA Negative Negative [facility] Comment on above: This nucleic acid am plification test detects fourteen high- risk HPV types (16,18,31,33,35,39,45,51,52,56,58,59,66,68) without differentiation. Performed at: = - [address] [id number] Shale Processing Technician: Verna Velez MD, Phone: [phone] Performed at: - [address], [place] [id number] Shale Processing Technician: Verna Velez MD, Phone: [phone] IGP, APTIMA HPV, RFX 16/18,45 Note . [facility] Comment on above: TESTS RESULT FLAG UN ITS REF RANGE LAB DIAGNOSIS: 02 NEGATIVE FOR INTRAEPITHELIAL LESION OR MALIGNANCY. CELLULAR CHANGES ASSOCIATED WITH ATROPHY ARE PRESENT. Specimen adequacy: 02 Satisfactory for evaluation. Endocervical and/or squamous metaplastic cells (endocervical component) are present. Performed by: Jeff Farooq, Trench Digging Machine Operator . 02 Note: Note 02 The Pap smear is a screening test designed to aid in the detection of premalignant and malignant conditions of the uterine cervix. It is not a diagnostic procedure and should not be used as the sole means of detecting cervical cancer. Both false-positive and false-negative reports do occur. Test Methodology: Note 02 This liquid based ThinPrep(R) pap test was screened with the use of an image guided system. HPV Genotype Reflex Note 02 Criteria not met, HPV Genotype not performed. FLAG LEGEND: L-Low Normal,H-High Normal,LL-Alert Low,HH-Alert High <-Panic Low,>-Panic High,A-Abnormal,AA-Critical Abnormal Performed at: [address] [address] Verna Velez MD, BRUSH-SPATULA CERVIX ENDOCERVIX [facility] Human papilloma virus 16+18+ 31+33+35+39+45+51+52+56+58+59+66+68 DNA [Presence] in [place] 03-07-2024 HPV 16+18+31+33+35+39+4 5+51+52+56+58+59+66 +68 DNA Probe+sig amp Ql (Cvx) Negative Negative [facility] Comment on above: This nucleic acid am plification test detects fourteen high- risk HPV types (16,18,31,33,35,39,45,51,52,56,58,59,66,68)without differentiation.Performed at: = - [address] [id number] Director: Verna Velez MD, Phone: [phone] at: [facility] [address] [id number] Director: Verna Velez MD, Phone: [phone] No Panel Informationon 03-07 HPV High Risk Other Comment Note . [facility] Comment on above: TESTS RESULT FLAG UN ITS REF RANGE LAB HERI GNOSIS: 02 NEGATIVE FOR INTRAEPITHELIAL LESION OR MALIGNANCY. CELLULAR CHANGES ASSOCIATED WITH ATROPHY ARE PRESENT.Specimen adequacy: 02 Satisfactory for evaluation. Endocervical and/or squamous metaplastic cells (endocervical component) are present.Performed by: 02 Beatrice Farooq, Trench Digging Machine Operator. 02Note: Note 02 The Pap smear is a screening test designed to aid in the detection of premalignant and malignant conditions of the uterine cervix. It is not a diagnostic procedure and should not be used as the sole means of detecting cervical cancer. Both false-positive and false-negative reports do occur.Test Methodology: Note 02 This liquid based ThinPrep(R) pap test was screened with the use of an image guided system.HPV Genotype Reflex Note 02 Criteria not met, HPV Genotype not performed. ---- FLAG LEGEND: L-Low Normal,H-High Normal,LL-Alert Low,HH-Alert High <-Panic Low,>-Panic High,A-Abnormal,AA-Critical Abnormal --Performed at:[address] [address] Verna Velez MD, Reference Lab Test Patient Age Note . [facility] Comment on above: TESTS RESULT FLAG UN ITS REF RANGE LAB Clinician Provided Cytology Information Source.............Cervix;Endocervix No. of containers..01 ThinPrep VialAge Peggy OREILLY Berta... 31 FLAG LEGEND: L-Low Normal,H-High Normal,LL-Alert Low,HH-Alert High <-Panic Low,>-Panic High,A-Abnormal,AA-Critical Abnormal --Performed at:01 =G [address] [place] [address] Verna Velez MD, XR elbow LT min 3V*on 2023 XR elbow LT min 3V* [facility] [address] [place] [address] XRay Report Signed Patient: Julia Quispe MR#: [id number] 74 : 1970 Acct:[id number] Age/Sex: 53 / F ADM Date: 03/01/24 Loc: [facility] Room: Type: [facility] Attending Dr: Pasha Kinney DO Copies [...] M.D.03/01/2024 3:31 PM Dictation Location: [place] [address] Transcribed By: [facility] 03/01/24 1531 Dictated By: Nikole Macdonald MD 03/01/24 153 Signed By: 03/01/24 153 Normal [facility] HCG ( test) Ql (U)o n 02-06-2024 Interpretation and review of laboratory results Normal [facility] re Preg Test, Ur Negative [facility] CBC AUTO DIFFon 10-27-2022 BASO # 0.0 103/ul Normal 0.0-0.1 [facility] Comment on above: Performed By: #### C BC #### [facility] [address] [address] [address] Neeta Nunez Basophils/100 WBC (Bld) 0.3 % Normal 0.2-2.0 [facility] Comment on above: Performed By: #### C BC #### [facility] [address] [address] [address] Neeta Nunez EO # 0.0 103/ul Normal 0.0-0.7 [facility] Comment on above: Performed By: #### C BC #### [facility] [address] [address] [address] Neeta Nunez Eosinophils/100 WBC (Bld) 0.3 % Critically low 0.9-7.0 [facility] Comment on above: Performed By: #### C BC #### [facility] [address] [address] [address] Neeta Nunez Erythrocyte distribution width (RBC) [Ratio] 12.9 % Normal 11.0-15.0 [facility] Comment on above: Performed By: #### C BC #### [facility] [address] [address] [address] Neeta Nunez Hematocrit (Bld) [Volume fraction] 44.3 % Normal 36.0-48.0 [facility] Comment on above: Performed By: #### C BC #### [facility] [address] [address] [address] Neeta Nunez Hemoglobin (Bld) [Mass/Vol] 14.6 g/dL Normal 12.0-16.0 [facility] Comment on above: Performed By: #### C BC #### [facility] [address] [address] [address] Neeta Nunez IG # 0.01 10e3/ul Normal 0.00-0.03 [facility] Comment on above: Performed By: #### C BC #### [facility] [address] [place] [address] Dr. Neeta Nunez IG % 0.1 % Normal 0.0-0.5 [facility] Comment on above: Performed By: #### C BC #### [facility] [address] [place] [address] Dr. Neeta Nunez LYMPH # 2.4 103/ul Normal 1.2-3.8 [facility] Comment on above: Performed By: #### C BC #### [facility] [address] [place] [address] Dr. Neeta Nunez Lymphocytes/100 WBC (Bld) 32.5 % Normal 20.5-60.0 [facility] Comment on above: Performed By: #### C BC #### [facility] [address] [place] [address] Dr. Neeta Nunez MANUAL DIFF REQ NO Normal [facility] Comment on above: Performed By: #### C BC #### [facility] [address] [place] [address] Dr. Neeta Nunez MCH (RBC) [Entitic mass] 31.7 pg Normal 26.7-34.0 [facility] Comment on above: Performed By: #### C BC #### [facility] [address] [place] [address] Dr. Neeta Nunez MCHC (RBC) [Mass/Vol] 33.0 g/dL Normal 29.9-35.2 [facility] Comment on above: Performed By: #### C BC #### [facility] [address] [place] [address] Dr. Neeta Nunez MCV (RBC) [Entitic vol] 96.1 fL Normal 81.0-99.0 [facility] Comment on above: Performed By: #### C BC #### [facility] [address] [place] [address] Dr. Neeta Nunez MONO # 0.4 103/ul Normal 0.3-0.8 [facility] Comment on above: Performed By: #### C BC #### [facility] [address] [place] [address] Dr. Neeta Nunez Monocytes/100 WBC (Bld) 5.3 % Normal 1.7-12.0 [facility] Comment on above: Performed By: #### C BC #### [facility] [address] [place] [address] Dr. Neeta Nunez NEUT # 4.6 103/ul Normal 1.4-6.5 [facility] Comment on above: Performed By: #### C BC #### [facility] [address] [place] [address] Dr. Neeta Nunez Neutrophils/100 WBC (Bld) 61.5 % Normal 43.0-75.0 [facility] Comment on above: Performed By: #### C BC #### [facility] [address] [place] [address] Dr. Neeta Nunez Platelet mean volume (Bld) [Entitic vol] 8.6 fL Critically low 9.5-13.5 [facility] Comment on above: Performed By: #### C BC #### [facility] [address] [place] [address] Dr. Neeta Nunez PLT 278 103/ul Normal 150-450 [facility] Comment on above: Performed By: #### C BC #### [facility] [address] [place] [address] Dr. Neeta Nunez RBC 4.61 106/ul Normal 4.20-5.40 [facility] Comment on above: Performed By: #### C BC #### [facility] [address] [place] [address] Dr. Neeta Nunez WBC 7.4 103/ul Normal 4.0-11.0 [facility] Comment on above: Performed By: #### C BC #### [facility] [address] [place] [address] Dr. Neeta Nunez D-DIMERon 10-27-2022 D-DIMER 0.22 mg/L FEU Normal <=0.59 [facility] Comment on above: Performed By: #### D DIM #### [facility] [address] [place] [address] Dr. Neeta Nunez D-DIMER COMMENTS SEE BELOW Normal [facility] Comment on above: Result Comment: Incr [...] hospitalization. Performed By: #### D DIM #### [facility] [address] [place] [address] Dr. Neeta Nunez FREE T4on 10-27-2022 Free T4 [Mass/Vol] 0.94 ng/dL Normal 0.76-1.46 [facility] Comment on above: Performed By: #### F T4 #### [facility] [address] [place] [address] Dr. Neeta Nunez PROF CHEM 8 (BAS METB)on Anion gap [Moles/Vol] 13.2 mmol/L Normal [facility] Comment on above: Performed By: #### T SH, BMP #### [facility] [address] [place] [address] Dr. Neeta Nunez Calcium [Mass/Vol] 9.8 mg/dL Normal 8.5-10.1 [facility] Comment on above: Performed By: #### T SH, BMP #### [facility] [address] [place] [address] Dr. Neeta Nunez Chloride [Moles/Vol] 102 mmol/L Normal 98-107 [facility] Comment on above: Performed By: #### T SH, BMP #### [facility] [address] [place] [address] Dr. Neeta Nunez CO2 [Moles/Vol] 28.2 mmol/L Normal 21.0-32.0 [facility] Comment on above: Performed By: #### T SH, BMP #### [facility] [address] [address] [address] Neeta Nunez Creatinine [Mass/Vol] 0.88 mg/dL Normal 0.55-1.02 [facility] Comment on above: Performed By: #### T SH, BMP #### [facility] [address] [address] [address] Neeta Nunez EGFR-AF KOSOVAN >60 Normal >=60 [facility] Comment on above: Performed By: #### T SH, BMP #### [facility] [address] [address] [address] Neeta Nunez EGFR-NON AF KOSOVAN >60 Normal >=60 [facility] Comment on above: Performed By: #### T SH, BMP #### [facility] [address] [address] [address] Neeta Nunez Glucose [Mass/Vol] 103 mg/dL Normal 74-106 [facility] Comment on above: Performed By: #### T MELLY, BMP #### [facility] [address] [address] [address] Neeta Nunez Potassium [Moles/Vol] 3.4 mmol/L Critically low 3.5-5.1 [facility] Comment on above: Performed By: #### T MELLY, BMP #### [facility] [address] [place] [address] Dr. Neeta Nunez Sodium [Moles/Vol] 140 mmol/L Normal 136-145 [facility] Comment on above: Performed By: #### T SH, BMP #### [facility] [address] [place] [address] Dr. Neeta Nunez Urea nitrogen [Mass/Vol] 21.0 mg/dL Critically high 7.0-18.0 [facility] Comment on above: Performed By: #### T SH, BMP #### [facility] [address] [place] [address] Dr. Neeta Nunez Urea nitrogen/Creatinine [Mass ratio] 23.9 mg/mg Normal [facility] Comment on above: Performed By: #### T SH, BMP #### [facility] [address] [place] [address] Dr. Neeta Nunez TSHon 10-27-2022 TSH 0.980 uIU/mL Normal 0.358-3.740 [facility] Comment on above: Performed By: #### T JOHN PICKARD #### [facility] [address] [address] [address] Neeta Nunez MG MAMM SCREEN 3D KATARINA CADon 05-07-2022 MG MAMM SCREEN 3D KATARINA CAD Patient: JULIA QUISPE Exam Date: 05/07/2022 : 1970 Gender:F Ordering : DR LUIS ANGEL ESQUIVEL . Admission #: [id number] Family : Order #: [id number] CLICK HERE TO VIEW EXAM RADIOLOGY REPORT [...] Treatments None Family Cancers None LOCATION: [facility] BREAST COMPOSITION: Heterogeneously dense,which may obscure small [...] Urias MD on 05/07/2022 at 09:15 Normal [facility] XR DEXA BONE DENSITYon 05-07 XR DEXA [...] Low Fracture Risk Electronically authenticated by: JANIYA MATIAS Date: 2022-05-07 07:27 Normal [facility] Abstracton 02-25-2022 Abstract [id number] Alia Quispe 1970 F Date Provider Department Center 02/25/2022 [id number] LEE [facility] Comprehensiv Family History Problem Relation Age of Onset Atrial fibrillation Mother Atrial fibrillation Father Family Status - Relation Status Age at Mother Father Normal [facility] PAP ACOG PANEL 2: 30 to 65on 02-05-2022 . . Normal [facility] Comment on above: Result Comment: Perf ormed at: WB Performed By: #### 4 [id number] #### [facility] [address] [address] [address] Neeta Nunez Age Gdln ACOG Testing 30-65 Normal [facility] Comment on above: Performed By: #### 4 [id number] #### [facility] [address] [address] [address] Neeta Nunez DIAGNOSIS: Comment Normal [facility] Comment on above: Result Comment: NEGA TIVE FOR INTRAEPITHELIAL LESION OR MALIGNANCY. CELLULAR CHANGES ASSOCIATED WITH ATROPHY ARE PRESENT. Performed at: WB Performed By: #### 4 [id number] #### [facility] [address] [address] [address] Neeta Nunez HPV Aptima Negative Normal Negative [facility] Comment on above: Result Comment: This nucleic acid amplification test detects fourteen high-risk HPV types (16,18,31,33,35,39,45,51,52,56,58,59,66,68) without differentiation. Performed at: =G Performed By: #### 4 [id number] #### [facility] [address] [address] [address] Neeta Nunez Methodology: Comment Normal [facility] Comment on above: Result Comment: This liquid based ThinPrep(R) pap test was screened with the use of an image guided system. Performed at: WB Performed By: #### 4 [id number] #### [facility] [address] [place] [address] Dr. Neeta Nunez Note: Comment Normal [facility] Comment on above: Result Comment: The Pap smear is a screening test designed to aid in the detection of premalignant and malignant conditions of the uterine cervix. It is not a diagnostic procedure and should not be used as the sole means of detecting cervical cancer. Both false-positive and false-negative reports do occur. . Performed at: WB Performed By: #### 4 [id number] #### [facility] [address] [place] [address] Dr. Neeta Nunez Performed by: Comment Normal [facility] Comment on above: Result Comment: Herb White, Trench Digging Machine Operator (ASCP) Performed at: WB Performed By: #### 4 [id number] #### [facility] [address] [place] [address] Dr. Neeta Nunez Specimen adequacy: Comment Normal [facility] Comment on above: Result Comment: Sati sfactory for evaluation. Endocervical component may not be distinguished in cases of atrophy. Performed at: WB Performed By: #### 4 [id number] #### [facility] [address] [place] [address] Dr. Neeta Nunez BASIC METABOLIC PANELon 05- Calcium [Mass/Vol] 9.1 mg/dL Normal 8.6-10.3 [facility] Comment on above: Order Comment: No: D o not add to previous draw Performed By: #### 1 0070, 87179, 97352 #### [facility] [address] [place] [address], [facility] Chloride [Moles/Vol] 105 mmol/L Normal 98-107 [facility] Comment on above: Order Comment: No: D o not add to previous draw Performed By: #### 1 0070, 02841, 82026 #### [facility] [address] [place] [address], [place] CO2 [Moles/Vol] 26 mmol/L Normal 21-31 [facility] Comment on above: Order Comment: No: D o not add to previous draw Performed By: #### 1 0070, 79473, 92433 #### [facility] [address] [place] [address], [place] Creatinine [Mass/Vol] 0.68 mg/dL Normal 0.60-1.20 [facility] Comment on above: Order Comment: No: D o not add to previous draw Performed By: #### 1 0070, 54429, 09850 #### [facility] [address] [place] [address], [place] GFR/1.73 sq M.predicted among blacks MDRD (S/P/Bld) [Vol rate/Area] mL/min/{1.73_m2} Normal >60 [facility] Comment on above: Order Comment: No: D o not add to previous draw Performed By: #### 1 0070, 61847, 51941 #### [facility] [address] [place] [address], [place] GFR/1.73 sq M.predicted among non-blacks MDRD (S/P/Bld) [Vol rate/Area] mL/min/{1.73_m2} Normal >60 [facility] Comment on above: Order Comment: No: D o not add to previous draw Performed By: #### 1 0070, 77769, 74795 #### [facility] [address] [place] [address], [place] Glucose [Mass/Vol] 90 mg/dL Normal 70-100 [facility] Comment on above: Order Comment: No: D o not add to previous draw Performed By: #### 1 0070, 34200, 64059 #### [facility] [address] [place] [address], [place] Potassium [Moles/Vol] 4.0 mmol/L Normal 3.5-5.1 [facility] Comment on above: Order Comment: No: D o not add to previous draw Performed By: #### 1 0070, 11599, 55745 #### [facility] [address] [place] [address], [facility] Sodium [Moles/Vol] 137 mmol/L Normal 136-145 [facility] Comment on above: Order Comment: No: D o not add to previous draw Performed By: #### 1 0070, 70234, 42507 #### [facility] [address] [place] [address], [facility] Urea nitrogen [Mass/Vol] 7 mg/dL Normal 7-25 [facility] Comment on above: Order Comment: No: D o not add to previous draw Performed By: #### 1 0070, 74766, 94434 #### [facility] [address] [place] [address], [facility] CBC COMPLETE BLOOD COUNTon 0 - Erythrocyte distribution width (RBC) [Ratio] 13.6 % Normal 11.5-15.0 [facility] Comment on above: Order Comment: RLQ P ERIHEPATIC FLUID DRAINAGE Performed By: #### 3 0310 #### [facility] [address] [place] [address], [facility] Hematocrit (Bld) [Volume fraction] 29.5 % Low 36.0-45.0 [facility] Comment on above: Order Comment: RLQ P ERIHEPATIC FLUID DRAINAGE Performed By: #### 3 0310 #### [facility] [address] [place] [address], [facility] Hemoglobin (Bld) [Mass/Vol] 8.7 g/dL Low 12.0-15.0 [facility] Comment on above: Order Comment: RLQ P ERIHEPATIC FLUID DRAINAGE Performed By: #### 3 0310 #### [facility] [address] [place] [address], [facility] MCH (RBC) [Entitic mass] 28.5 pg Normal 27.0-33.0 [facility] Comment on above: Order Comment: RLQ P ERIHEPATIC FLUID DRAINAGE Performed By: #### 3 0310 #### [facility] [address] [place] [address], [facility] MCHC (RBC) [Mass/Vol] 29.5 g/dL Low 32.0-35.0 [facility] Comment on above: Order Comment: RLQ P ERIHEPATIC FLUID DRAINAGE Performed By: #### 3 0310 #### [facility] [address] [place] [address], [facility] MCV (RBC) [Entitic vol] 96.7 fL Normal 82.0-98.0 [facility] Comment on above: Order Comment: RLQ P ERIHEPATIC FLUID DRAINAGE Performed By: #### 3 0310 #### [facility] [address] [place] [address], [facility] Nucleated RBC/100 WBC (Bld) [Ratio] 0 % Normal 0-0 [facility] Comment on above: Order Comment: RLQ P ERIHEPATIC FLUID DRAINAGE Performed By: #### 3 0310 #### [facility] [address] [place] [address], [facility] PLAT CNT 422 10*3/uL High 150-400 [facility] Comment on above: Order Comment: RLQ P ERIHEPATIC FLUID DRAINAGE Performed By: #### 3 0310 #### [facility] [address] [place] [address], [facility] RBC (Bld) [#/Vol] 3.05 10*6/uL Low 3.80-5.00 [facility] Comment on above: Order Comment: RLQ P ERIHEPATIC FLUID DRAINAGE Performed By: #### 3 0310 #### [facility] [address] [place] [address], [facility] WBC (Bld) [#/Vol] 4.76 10*3/uL Normal 4.00-10.60 [facility] Comment on above: Order Comment: RLQ P ERIHEPATIC FLUID DRAINAGE Performed By: #### 3 0310 #### [facility] [address] [facility] APTTon 11-06-2021 aPTT Coag (Bld) [Time] 32.4 s Normal 25.0-35.0 [facility] Comment on above: Order Comment: [...] THIS PURPOSE. Performed By: #### 1 0070, 60037, 95728 #### [facility] [address] BASIC METABOLIC PANELon 10-25 Calcium [Mass/Vol] 8.9 mg/dL Normal 8.6-10.3 [facility] Comment on above: Order Comment: No: D o not add to previous draw Performed By: #### 1 0070, 54533, 77028 #### [facility] [address] [facility] [place] [address], [facility] Chloride [Moles/Vol] 105 mmol/L Normal 98-107 [facility] Comment on above: Order Comment: No: D o not add to previous draw Performed By: #### 1 0070, 44307, 14110 #### [facility] [address] [facility] [place] [address], [facility] CO2 [Moles/Vol] 25 mmol/L Normal 21-31 [facility] Comment on above: Order Comment: No: D o not add to previous draw Performed By: #### 1 0070, 66143, 51672 #### [facility] [address] [place] [address], [place] Creatinine [Mass/Vol] 0.72 mg/dL Normal 0.60-1.20 [facility] Comment on above: Order Comment: No: D o not add to previous draw Performed By: #### 1 0070, 57153, 34117 #### [facility] [address] [place] [address], [place] GFR/1.73 sq M.predicted among blacks MDRD (S/P/Bld) [Vol rate/Area] mL/min/{1.73_m2} Normal >60 [facility] Comment on above: Order Comment: No: D o not add to previous draw Performed By: #### 1 0, 25360, 13916 #### [facility] [address] [place] [address], [place] GFR/1.73 sq M.predicted among non-blacks MDRD (S/P/Bld) [Vol rate/Area] mL/min/{1.73_m2} Normal >60 [facility] Comment on above: Order Comment: No: D o not add to previous draw Performed By: #### 1 0, 87586, 23326 #### [facility] [address] [place] [address], [place] Glucose [Mass/Vol] 95 mg/dL Normal 70-100 [facility] Comment on above: Order Comment: No: D o not add to previous draw Performed By: #### 1 0070, 78107, 17523 #### [facility] [address] [place] [address], [place] Potassium [Moles/Vol] 3.9 mmol/L Normal 3.5-5.1 [facility] Comment on above: Order Comment: No: D o not add to previous draw Performed By: #### 1 0, 41649, 80566 #### [facility] [address] [place] [address], [facility] Sodium [Moles/Vol] 137 mmol/L Normal 136-145 [facility] Comment on above: Order Comment: No: D o not add to previous draw Performed By: #### 1 0070, 91814, 32541 #### [facility] [address] [place] [address], [facility] Urea nitrogen [Mass/Vol] 8 mg/dL Normal 7-25 [facility] Comment on above: Order Comment: No: D o not add to previous draw Performed By: #### 1 0070, 23296, 18043 #### [facility] [address] [place] [address], [facility] CBC COMPLETE BLOOD COUNTon 0 - Erythrocyte distribution width (RBC) [Ratio] 13.6 % Normal 11.5-15.0 [facility] Comment on above: Order Comment: RLQ P ERIHEPATIC FLUID DRAINAGE Performed By: #### 3 0310 #### [facility] [address] [place] [address], [facility] Hematocrit (Bld) [Volume fraction] 29.6 % Low 36.0-45.0 [facility] Comment on above: Order Comment: RLQ P ERIHEPATIC FLUID DRAINAGE Performed By: #### 3 0310 #### [facility] [address] [place] [address], [facility] Hemoglobin (Bld) [Mass/Vol] 9.2 g/dL Low 12.0-15.0 [facility] Comment on above: Order Comment: RLQ P ERIHEPATIC FLUID DRAINAGE Performed By: #### 3 0310 #### [facility] [address] [place] [address], [place] MCH (RBC) [Entitic mass] 29.6 pg Normal 27.0-33.0 [facility] Comment on above: Order Comment: RLQ P ERIHEPATIC FLUID DRAINAGE Performed By: #### 3 0310 #### [facility] [address] [place] [address], [facility] MCHC (RBC) [Mass/Vol] 31.1 g/dL Low 32.0-35.0 [facility] Comment on above: Order Comment: RLQ P ERIHEPATIC FLUID DRAINAGE Performed By: #### 3 0310 #### [facility] [address] [place] [address], [facility] MCV (RBC) [Entitic vol] 95.2 fL Normal 82.0-98.0 [facility] Comment on above: Order Comment: RLQ P ERIHEPATIC FLUID DRAINAGE Performed By: #### 3 0310 #### [facility] [address] [place] [address], [facility] Nucleated RBC/100 WBC (Bld) [Ratio] 0 % Normal 0-0 [facility] Comment on above: Order Comment: RLQ P ERIHEPATIC FLUID DRAINAGE Performed By: #### 3 0310 #### [facility] [address] [place] [id number], [place] PLAT CNT 476 10*3/uL High 150-400 [facility] Comment on above: Order Comment: RLQ P ERIHEPATIC FLUID DRAINAGE Performed By: #### 3 0310 #### [facility] [address] [place] [address], [facility] RBC (Bld) [#/Vol] 3.11 10*6/uL Low 3.80-5.00 [facility] Comment on above: Order Comment: RLQ P ERIHEPATIC FLUID DRAINAGE Performed By: #### 3 0310 #### [facility] [address] [place] [address], [place] WBC (Bld) [#/Vol] 6.78 10*3/uL Normal 4.00-10.60 [facility] Comment on above: Order Comment: RLQ P ERIHEPATIC FLUID DRAINAGE Performed By: #### 3 0310 #### [facility] [address] [place] [id number], [facility] LIVER BATTERYon 11-06-2021 Albumin [Mass/Vol] 3.3 g/dL Low 3.5-5.7 [facility] Comment on above: Order Comment: No: D o not add to previous draw Performed By: #### 1 0070, 79896, 51545 #### [facility] [address] [place] [address], [facility] ALKALINE PHOSPH 108 IU/L High 34-104 [facility] Comment on above: Order Comment: No: D o not add to previous draw Performed By: #### 1 0070, 55725, 43477 #### [facility] [address] [place] [address], [facility] ALT [Catalytic activity/Vol] 50 U/L Normal 7-52 [facility] Comment on above: Order Comment: No: D o not add to previous draw Performed By: #### 1 0070, 52159, 67521 #### [facility] [address] [place] [address], [facility] AST [Catalytic activity/Vol] 11 U/L Low 13-39 [facility] Comment on above: Order Comment: No: D o not add to previous draw Performed By: #### 1 0070, 30891, 67588 #### [facility] [address] [place] [address], [place] Bilirubin [Mass/Vol] 0.8 mg/dL Normal 0.3-1.0 [facility] Comment on above: Order Comment: No: D o not add to previous draw Performed By: #### 1 0070, 72622, 45973 #### [facility] [address] [place] [address], [facility] Bilirubin.direct [Mass/Vol] 0.2 mg/dL Normal 0.0-0.2 [facility] Comment on above: Order Comment: No: D o not add to previous draw Performed By: #### 1 0070, 47714, 14987 #### [facility] [address] [place] [address], [facility] Protein [Mass/Vol] 6.3 g/dL Normal 6.0-8.3 [facility] Comment on above: Order Comment: No: D o not add to previous draw Performed By: #### 1 0070, 22251, 81555 #### [facility] [address] [place] [address], [facility] MAGNESIUM BLOODon 11-06-2021 Magnesium [Mass/Vol] 2.0 mg/dL Normal 1.9-2.7 [facility] Comment on above: Order Comment: No: D o not add to previous draw Performed By: #### 1 0070, 48482, 60205 #### [facility] [address] [facility] [place] [address], [facility] PHOSPHORUS BLOODon 2 Phosphate [Mass/Vol] 4.2 mg/dL Normal 2.5-5.0 [facility] Comment on above: Order Comment: No: D o not add to previous draw Performed By: #### 1 0070, 39451, 96097 #### [facility] [address] [place] [address], [facility] PROTHROMBIN TIMEon 2 INR Coag (PPP) [Relative time] 1.12 {INR} Normal 0.91-1.16 [facility] Comment on above: Order Comment: No: D [...] CHEST 1995;108:231S-246S. Performed By: #### 1 0070, 14223, 51183 #### [facility] [address] PT Coag (PPP) [Time] 14.4 s Normal 12.3-14.8 [facility] Comment on above: Order Comment: No: D o not add to previous draw Result Comment: ALL RESULTS MUST BE INTERPRETED WITH RESPECT TO BLOOD DRAWING ARTIFACT OR DILUTION ERROR OF ANTICOAGULANT AT THE TIME OF SAMPLING. Performed By: #### 1 0070, 05865, 70163 #### [facility] [address] [facility]. [address] *ABSCESS CULTUREon 2 *ABSCESS CULTURE Clinical Report: (D) Specimen: ABSCESS Collected: 11/05/2021 13:06 Status: Final Last Updated: 11/08/2021 07:07 (1) RLQ PERIHEPATIC FLUID DRAINAGE GRAM (Final) Many Polys No Bacteria Seen ISO (Final) Escherichia coli Heavy Growth ISOLATE: Escherichia coli --- MILLICENT (mcg/ml) AMP./SULBAC (AMS) 8/4 Susceptible AMPICILLIN (AM) <=4 Susceptible AZTREONAM (AZM) <=2 Susceptible CEFAZOLIN (CZ) 4 Susceptible CEFTRIAXONE (GOAT DRIVER) <=1 Susceptible CIPROFLOXACIN (CIP) <=0.25 Susceptible ESBL (-/+) (ESBL) Negative GENTAMICIN (GM) <=2 Susceptible PIP/TAZO (TZP) <=2/4 Susceptible TOBRAMYCIN (TOB) <=2 Susceptible TRIMETH/SULFA (SXT) <=0.5/9.5 Susceptible Normal [facility] Comment on above: Order Comment: RLQ P ERIHEPATIC FLUID DRAINAGE Performed By: #### 3 0310 #### [facility] [address] [facility]. [address] *ANAEROBIC CULTUREon 022 *ANAEROBIC CULTURE Clinical Report: (D) Specimen: DRAINAGE Collected: 11/05/2021 13:06 Status: Final Last Updated: 11/10/2021 09:47 (1) RLQ PERIHEPATIC FLUID DRAINAGE ISO (Final) Bacteroides fragilis Beta-Lactamase Positive ISO (Final) Eubacterium species Result changed by [email or web address] on 11/10/2021 09:47. The previous result was: ISO (Prelim) Normal [facility] Comment on above: Order Comment: RLQ P ERIHEPATIC FLUID DRAINAGE Performed By: #### 3 0310 #### [facility] [address] APTTon 11-05-2021 aPTT Coag (Bld) [Time] 28.6 s Normal 25.0-35.0 [facility] Comment on above: Order Comment: No: D [...] THIS PURPOSE. Performed By: #### 1 0070, 23974, 77799 #### [facility] [address] [facility]. [address] BASIC METABOLIC PANELon 10-25 Calcium [Mass/Vol] 8.3 mg/dL Low 8.6-10.3 [facility] Comment on above: Order Comment: No: D o not add to previous draw Performed By: #### 1 0070, 46705, 84294 #### [facility] [address] Chloride [Moles/Vol] 108 mmol/L High 98-107 [facility] Comment on above: Order Comment: No: D o not add to previous draw Performed By: #### 1 0070, 25045, 28096 #### [facility] [address] [place] [address], [place] CO2 [Moles/Vol] 23 mmol/L Normal 21-31 [facility] Comment on above: Order Comment: No: D o not add to previous draw Performed By: #### 1 0070, 18359, 54769 #### [facility] [address] [place] [address], [place] Creatinine [Mass/Vol] 0.48 mg/dL Low 0.60-1.20 [facility] Comment on above: Order Comment: No: D o not add to previous draw Performed By: #### 1 0, 02168, 00396 #### [facility] [address] [place] [address], [place] GFR/1.73 sq M.predicted among blacks MDRD (S/P/Bld) [Vol rate/Area] mL/min/{1.73_m2} Normal >60 [facility] Comment on above: Order Comment: No: D o not add to previous draw Performed By: #### 1 0, 04121, 92158 #### [facility] [address] [place] [address], [place] GFR/1.73 sq M.predicted among non-blacks MDRD (S/P/Bld) [Vol rate/Area] mL/min/{1.73_m2} Normal >60 [facility] Comment on above: Order Comment: No: D o not add to previous draw Performed By: #### 1 0070, 49582, 98167 #### [facility] [address] [place] [address], [place] Glucose [Mass/Vol] 94 mg/dL Normal 70-100 [facility] Comment on above: Order Comment: No: D o not add to previous draw Performed By: #### 1 0070, 50576, 92093 #### [facility] [address] [place] [address], [facility] Potassium [Moles/Vol] 3.9 mmol/L Normal 3.5-5.1 [facility] Comment on above: Order Comment: No: D o not add to previous draw Performed By: #### 1 0070, 71147, 57437 #### [facility] [address] [place] [address], [facility] Sodium [Moles/Vol] 138 mmol/L Normal 136-145 [facility] Comment on above: Order Comment: No: D o not add to previous draw Performed By: #### 1 0070, 73441, 83345 #### [facility] [address] [place] [address], [facility] Urea nitrogen [Mass/Vol] 9 mg/dL Normal 7-25 [facility] Comment on above: Order Comment: No: D o not add to previous draw Performed By: #### 1 0070, 25052, 38207 #### [facility] [address] [place] [address], [facility] CBC W/DIFFon 11-05-2021 ABS IMM GRANS 0.0 10*3/uL Normal 0.0-0.2 [facility] Comment on above: Order Comment: RLQ P ERIHEPATIC FLUID DRAINAGE Performed By: #### 3 0310 #### [facility] [address] [place] [address], [facility] ABS NEUTROPHILS 4.5 10*3/uL Normal 1.6-7.6 [facility] Comment on above: Order Comment: RLQ P ERIHEPATIC FLUID DRAINAGE Performed By: #### 3 0310 #### [facility] [address] [place] [address], [facility] Basophils (Bld) [#/Vol] 0.0 10*3/uL Normal 0.0-0.2 [facility] Comment on above: Order Comment: RLQ P ERIHEPATIC FLUID DRAINAGE Performed By: #### 3 0310 #### [facility] [address] [place] [address], [facility] Basophils/100 WBC (Bld) 0.3 % Normal 0.0-1.0 [facility] Comment on above: Order Comment: RLQ P ERIHEPATIC FLUID DRAINAGE Performed By: #### 3 0310 #### [facility] [address] [place] [address], [facility] Eosinophils (Bld) [#/Vol] 0.1 10*3/uL Normal 0.0-0.5 [facility] Comment on above: Order Comment: RLQ P ERIHEPATIC FLUID DRAINAGE Performed By: #### 3 0310 #### [facility] [address] [place] [address], [facility] Eosinophils/100 WBC (Bld) 1.4 % Normal 0.0-6.0 [facility] Comment on above: Order Comment: RLQ P ERIHEPATIC FLUID DRAINAGE Performed By: #### 3 0310 #### [facility] [address] [facility] [address], [facility] Erythrocyte distribution width (RBC) [Ratio] 14.0 % Normal 11.5-15.0 [facility] Comment on above: Order Comment: RLQ P ERIHEPATIC FLUID DRAINAGE Performed By: #### 3 0310 #### [facility] [address] [facility] [place] [address], [facility] Hematocrit (Bld) [Volume fraction] 27.2 % Low 36.0-45.0 [facility] Comment on above: Order Comment: RLQ P ERIHEPATIC FLUID DRAINAGE Performed By: #### 3 0310 #### [facility] [address] [place] [address], [facility] Hemoglobin (Bld) [Mass/Vol] 8.5 g/dL Low 12.0-15.0 [facility] Comment on above: Order Comment: RLQ P ERIHEPATIC FLUID DRAINAGE Performed By: #### 3 0310 #### [facility] [address] [place] [address], [facility] IMMATURE GRANS 0.5 % Normal 0.0-1.0 The [facility] Comment on above: Order Comment: RLQ P ERIHEPATIC FLUID DRAINAGE Performed By: #### 3 0310 #### [facility] [address] [place] [address], [facility] Lymphocytes (Bld) [#/Vol] 1.3 10*3/uL Normal 1.2-4.0 [facility] Comment on above: Order Comment: RLQ P ERIHEPATIC FLUID DRAINAGE Performed By: #### 3 0310 #### [facility] [address] [place] [address], [facility] Lymphocytes/100 WBC (Bld) 20.5 % Normal 20.0-45.0 [facility] Comment on above: Order Comment: RLQ P ERIHEPATIC FLUID DRAINAGE Performed By: #### 3 0310 #### [facility] [address] [facility] [address], [facility] MCH (RBC) [Entitic mass] 29.7 pg Normal 27.0-33.0 [facility] Comment on above: Order Comment: RLQ P ERIHEPATIC FLUID DRAINAGE Performed By: #### 3 0310 #### [facility] [address] [facility] [place] [address], [facility] MCHC (RBC) [Mass/Vol] 31.3 g/dL Low 32.0-35.0 [facility] Comment on above: Order Comment: RLQ P ERIHEPATIC FLUID DRAINAGE Performed By: #### 3 0310 #### [facility] [address] [place] [id number], [facility] MCV (RBC) [Entitic vol] 95.1 fL Normal 82.0-98.0 [facility] Comment on above: Order Comment: RLQ P ERIHEPATIC FLUID DRAINAGE Performed By: #### 3 0310 #### [facility] [address] [place] [address], [facility] Monocytes (Bld) [#/Vol] 0.5 10*3/uL Normal 0.1-1.0 [facility] Comment on above: Order Comment: RLQ P ERIHEPATIC FLUID DRAINAGE Performed By: #### 3 0310 #### [facility] [address] [place] [address], [place] MONOS 7.3 % Normal 5.0-12.0 [facility] Comment on above: Order Comment: RLQ P ERIHEPATIC FLUID DRAINAGE Performed By: #### 3 0310 #### [facility] [address] [place] [id number], [facility] Neutrophils/100 WBC (Bld) 70.0 % Normal 40.0-72.0 [facility] Comment on above: Order Comment: RLQ P ERIHEPATIC FLUID DRAINAGE Performed By: #### 3 0310 #### [facility] [address] [place] [address], [facility] Nucleated RBC/100 WBC (Bld) [Ratio] 0 % Normal 0-0 [facility] Comment on above: Order Comment: RLQ P ERIHEPATIC FLUID DRAINAGE Performed By: #### 3 0310 #### [facility] [address] [place] [address], [place] PLAT CNT 497 10*3/uL High 150-400 The [facility] Comment on above: Order Comment: RLQ P ERIHEPATIC FLUID DRAINAGE Performed By: #### 3 0310 #### [facility] [address] [place] [address], [place] RBC (Bld) [#/Vol] 2.86 10*6/uL Low 3.80-5.00 [facility] Comment on above: Order Comment: RLQ P ERIHEPATIC FLUID DRAINAGE Performed By: #### 3 0310 #### [facility] [address] WBC (Bld) [#/Vol] 6.44 10*3/uL Normal 4.00-10.60 [facility] Comment on above: Order Comment: RLQ P ERIHEPATIC FLUID DRAINAGE Performed By: #### 3 0310 #### [address] DRAINAGE PERITONEALon CT DRAINAGE PERITONEAL [facility] Department of Radiology [address] [place], [place] [id number] Patient Name: JULIA QUISPE : 1970 Sex: F Age: Race: White Pt. Location: [id number] Patient Status: I Ordered Date: 11/05/2021 6:55:00 [...] risks are acceptable. Consent was obtained. Timeout: [place] protocol timeout verification performed. MEDICATIONS: 2 mg [...] this time and was unsuccessful. A 10 Mongolian pigtail catheter was then placed and placement [...] presumed inferior right hepatic lobe abscess. Approved by:Flip Andersen11/05/2021 1:21 PM. I, Caroline Escamilla,have reviewed the image(s) and agree with the findings in this report. Electronically signed: Caroline Escamilla. Transcribed by: [email or web address], User Resident: FLIP PUENTES Electronically Signed by: CAROLINE ESCAMILLA @ 11/05/2021 01:45 PM I personally read this/these film(s) with this resident Normal [facility] Comment on above: Order Comment: Other , liver abscess posterior segment right lobe MAGNESIUM BLOODon 11-05-2021 Magnesium [Mass/Vol] 2.0 mg/dL Normal 1.9-2.7 [facility] Comment on above: Order Comment: No: D o not add to previous draw Performed By: #### 1 0070, 63895, 42692 #### [facility] [address] [facility]. [address] PHOSPHORUS BLOODon 2 Phosphate [Mass/Vol] 3.7 mg/dL Normal 2.5-5.0 [facility] Comment on above: Order Comment: No: D o not add to previous draw Performed By: #### 1 0070, 62037, 63125 #### [facility] [address] [facility]. [place], [place] [id number] [place] [address] POC SARS COV2 ANTIGEN NEGATI VEon 11-05-2021 POC SARS COV2 ANTIGEN NEG Negative Normal NEGATIVE [facility] Comment on above: Result Comment: Nega tive [...] antigen from SARS-CoV-2 in direct nasopharyngeal swab (PROPERTY FIELD ADJUSTER) specimens from individuals who are suspected of [...] Certificate of Accreditation. Performed By: #### 3 4 #### [facility] [address] [place] [address], [facility] PROTHROMBIN TIMEon INR Coag (PPP) [Relative time] 1.14 {INR} Normal 0.91-1.16 [facility] Comment on above: Order Comment: No: D [...] CHEST 1995;108:231S-246S. Performed By: #### 1 0070, 10909, 08361 #### [facility] [address] [place] [address], [facility] PT Coag (PPP) [Time] 14.6 s Normal 12.3-14.8 [facility] Comment on above: Order Comment: No: D o not add to previous draw Result Comment: ALL RESULTS MUST BE INTERPRETED WITH RESPECT TO BLOOD DRAWING ARTIFACT OR DILUTION ERROR OF ANTICOAGULANT AT THE TIME OF SAMPLING. Performed By: #### 1 0070, 94968, 42013 #### [facility] [address] [place] [address], [facility] US GALLBLADDERon 11-05-2021 US GALLBLADDER [facility] Department of Radiology [address] [place] [id number] Patient Name: JULIA QUISPE : 1970 Sex: F Age: Race: White Pt. Location: [address] [place] [address] Patient Status: I Ordered Date: 11/05/2021 11:20:00 [...] sludge. Electronically signed: Vincent Raphael. Transcribed by: [email or web address], User Resident: Electronically Signed by: VINCENT RAPHAEL @ 11/05/2021 02:10 PM Normal [facility] Comment on above: Order Comment: Enlar gement CBC W/DIFFon 11-04-2021 ABS IMM GRANS 0.0 10*3/uL Normal 0.0-0.2 [facility] Comment on above: Performed By: #### 8 5499 #### [facility] [address] [place] [address], [facility] ABS NEUTROPHILS 6.0 10*3/uL Normal 1.6-7.6 [facility] Comment on above: Performed By: #### 8 5499 #### [facility] [address] [place] [address], [facility] Basophils (Bld) [#/Vol] 0.0 10*3/uL Normal 0.0-0.2 [facility] Comment on above: Performed By: #### 8 5499 #### [facility] [address] [place] [id number], [facility] Basophils/100 WBC (Bld) 0.4 % Normal 0.0-1.0 [facility] Comment on above: Performed By: #### 8 5499 #### [facility] [address] [place] [address], [facility] Eosinophils (Bld) [#/Vol] 0.1 10*3/uL Normal 0.0-0.5 [facility] Comment on above: Performed By: #### 8 5499 #### [facility] [address] [place] [address], [facility] Eosinophils/100 WBC (Bld) 1.2 % Normal 0.0-6.0 [facility] Comment on above: Performed By: #### 8 5499 #### [facility] [address] [place] [address], [facility] Erythrocyte distribution width (RBC) [Ratio] 13.9 % Normal 11.5-15.0 [facility] Comment on above: Performed By: #### 8 5499 #### [facility] [address] [place] [address], [facility] Hematocrit (Bld) [Volume fraction] 30.8 % Low 36.0-45.0 [facility] Comment on above: Performed By: #### 8 5499 #### [facility] [address] [facility] [place] [address], [facility] Hemoglobin (Bld) [Mass/Vol] 9.8 g/dL Low 12.0-15.0 [facility] Comment on above: Performed By: #### 8 5499 #### [facility] [address] [facility] [address], [facility] IMMATURE GRANS 0.4 % Normal 0.0-1.0 The [facility] Comment on above: Performed By: #### 8 5499 #### [facility] [address] [facility]. [address] Lymphocytes (Bld) [#/Vol] 1.7 10*3/uL Normal 1.2-4.0 [facility] Comment on above: Performed By: #### 8 5499 #### [facility] [address] [facility] [place] [address], [facility] Lymphocytes/100 WBC (Bld) 20.3 % Normal 20.0-45.0 [facility] Comment on above: Performed By: #### 8 5499 #### [facility] [address] [facility] MCH (RBC) [Entitic mass] 30.1 pg Normal 27.0-33.0 [facility] Comment on above: Performed By: #### 8 5499 #### [facility] [address] [facility] [place] [address], [facility] MCHC (RBC) [Mass/Vol] 31.8 g/dL Low 32.0-35.0 [facility] Comment on above: Performed By: #### 8 5499 #### [facility] [address] [place] [address], [facility] MCV (RBC) [Entitic vol] 94.5 fL Normal 82.0-98.0 [facility] Comment on above: Performed By: #### 8 5499 #### [facility] [address] [place] [address], [facility] Monocytes (Bld) [#/Vol] 0.6 10*3/uL Normal 0.1-1.0 [facility] Comment on above: Performed By: #### 8 5499 #### [facility] [address] [facility] [place] [address], [facility] MONOS 6.6 % Normal 5.0-12.0 [facility] Comment on above: Performed By: #### 8 5499 #### [facility] [address] [place] [address], [facility] Neutrophils/100 WBC (Bld) 71.1 % Normal 40.0-72.0 [facility] Comment on above: Performed By: #### 8 5499 #### [facility] [address] [facility] [place] [address], [facility] Nucleated RBC/100 WBC (Bld) [Ratio] 0 % Normal 0-0 [facility] Comment on above: Performed By: #### 8 5499 #### [facility] [address] [facility] [place] [address], [facility] PLAT CNT 611 10*3/uL High 150-400 [facility] Comment on above: Performed By: #### 8 5499 #### [facility] [address] [facility] [place] [address], [facility] RBC (Bld) [#/Vol] 3.26 10*6/uL Low 3.80-5.00 [facility] Comment on above: Performed By: #### 8 5499 #### [facility] [address] [facility] [place] [address], [facility] WBC (Bld) [#/Vol] 8.43 10*3/uL Normal 4.00-10.60 [facility] Comment on above: Performed By: #### 8 5499 #### [facility] [address] [place] [address], [facility] COMP METABOLIC PANELon 11-04 Albumin [Mass/Vol] 3.7 g/dL Normal 3.5-5.7 [facility] Comment on above: Performed By: #### 1 0, 16036, 49181 #### [facility] [address] [place] [address], [place] ALKALINE PHOSPH 131 IU/L High 34-104 [facility] Comment on above: Performed By: #### 1 0, 81615, 61381 #### [facility] [address] [place] [address], [place] ALT [Catalytic activity/Vol] 99 U/L High 7-52 [facility] Comment on above: Performed By: #### 1 69, 86738, 87435 #### [facility] [address] [place] [address], [place] AST [Catalytic activity/Vol] 38 U/L Normal 13-39 [facility] Comment on above: Performed By: #### 1 69, 93605, 81395 #### [facility] [address] [place] [address], [place] Bilirubin [Mass/Vol] 0.7 mg/dL Normal 0.3-1.0 [facility] Comment on above: Performed By: #### 1 69, 76136, 65721 #### [facility] [address] [place] [address], [place] Calcium [Mass/Vol] 9.2 mg/dL Normal 8.6-10.3 [facility] Comment on above: Performed By: #### 1 69, 51286, 15967 #### [facility] [address] [place] [address], [place] Chloride [Moles/Vol] 103 mmol/L Normal 98-107 [facility] Comment on above: Performed By: #### 1 0, 23906, 47125 #### [facility] [address] [place] [address], [place] CO2 [Moles/Vol] 27 mmol/L Normal 21-31 [facility] Comment on above: Performed By: #### 1 0, 87668, 80105 #### [facility] [address] [place] [address], [place] Creatinine [Mass/Vol] 0.60 mg/dL Normal 0.60-1.20 [facility] Comment on above: Performed By: #### 1 0, 42391, 48999 #### [facility] [address] [place] [address], [place] GFR/1.73 sq M.predicted among blacks MDRD (S/P/Bld) [Vol rate/Area] mL/min/{1.73_m2} Normal >60 [facility] Comment on above: Performed By: #### 1 0, 96294, 84884 #### [facility] [address] [place] [address], [place] GFR/1.73 sq M.predicted among non-blacks MDRD (S/P/Bld) [Vol rate/Area] mL/min/{1.73_m2} Normal >60 [facility] Comment on above: Performed By: #### 1 0, 06905, 27110 #### [facility] [address] [place] [address], [place] Glucose [Mass/Vol] 93 mg/dL Normal 70-100 [facility] Comment on above: Performed By: #### 1 0, 75488, 39929 #### [facility] [address] [place] [address], [place] Potassium [Moles/Vol] 4.2 mmol/L Normal 3.5-5.1 [facility] Comment on above: Performed By: #### 1 0070, 65276, 69623 #### [facility] [address] [place] [address], [facility] Protein [Mass/Vol] 6.6 g/dL Normal 6.0-8.3 [facility] Comment on above: Performed By: #### 1 0070, 58701, 59024 #### [facility] [address] [facility]. [address] Sodium [Moles/Vol] 139 mmol/L Normal 136-145 [facility] Comment on above: Performed By: #### 1 0070, 00691, 66514 #### [facility] [address] [facility] [place] [address], [facility] Urea nitrogen [Mass/Vol] 12 mg/dL Normal 7-25 [facility] Comment on above: Performed By: #### 1 0070, 00385, 16820 #### [facility] [address] ABDOMEN AND PELVIS W IV C ONTRASTon 11-04-2021 CT ABDOMEN AND PELVIS W IV CONTRAST [facility] Department of Radiology [address] [place] [id number] Patient Name: JULIA QUISPE : 1970 Sex: F Age: Race: White Pt. Location: [facility] Patient Status: E Ordered Date: [...] as low as reasonably achievable. Electronically signed: Deacon Saenz. Transcribed by: [email or web address], User Resident: Electronically Signed by: DEACON SAENZ @ 11/04/2021 06:21 PM Normal [facility] Comment on above: Order Comment: Retro peritoneal Mass/Abscess, post-appendectomy with MICHEAL drain LACTATE WITH REFLEXon 2021 Lactate [Moles/Vol] 1.3 mmol/L Normal .5-2.2 [facility] Comment on above: Performed By: #### 1 0070, 10608, 47956 #### [facility] [address] [place] [address], [place] LIPASE BLOODon 11-04-2021 LIPASE 265 Units/L High 11-82 [facility] Comment on above: Performed By: #### 1 0070, 01257, 66051 #### [facility] [address] [place] [address], [place] BASIC METABOLIC PANELon Calcium [Mass/Vol] 8.6 mg/dL Normal 8.6-10.3 [facility] Comment on above: Order Comment: No: D o not add to previous draw Performed By: #### 1 0, 74242, 22766 #### [facility] [address] [place] [address], [place] Chloride [Moles/Vol] 103 mmol/L Normal 98-107 [facility] Comment on above: Order Comment: No: D o not add to previous draw Performed By: #### 1 0, 77537, 70005 #### [facility] [address] [place] [address], [place] CO2 [Moles/Vol] 28 mmol/L Normal 21-31 [facility] Comment on above: Order Comment: No: D o not add to previous draw Performed By: #### 1 0070, 64401, 53233 #### [facility] [address] [place] [address], [place] Creatinine [Mass/Vol] 0.61 mg/dL Normal 0.60-1.20 [facility] Comment on above: Order Comment: No: D o not add to previous draw Performed By: #### 1 0070, 21469, 13965 #### [facility] [address] [place] [address], [place] GFR/1.73 sq M.predicted among blacks MDRD (S/P/Bld) [Vol rate/Area] mL/min/{1.73_m2} Normal >60 [facility] Comment on above: Order Comment: No: D o not add to previous draw Performed By: #### 1 0070, 33431, 56099 #### [facility] [address] [place] [address], [place] GFR/1.73 sq M.predicted among non-blacks MDRD (S/P/Bld) [Vol rate/Area] mL/min/{1.73_m2} Normal >60 [facility] Comment on above: Order Comment: No: D o not add to previous draw Performed By: #### 1 0, 88358, 91421 #### [facility] [address] [place] [address], [place] Glucose [Mass/Vol] 101 mg/dL High 70-100 [facility] Comment on above: Order Comment: No: D o not add to previous draw Performed By: #### 1 0, 63441, 38786 #### [facility] [address] [place] [address], [place] Potassium [Moles/Vol] 4.0 mmol/L Normal 3.5-5.1 [facility] Comment on above: Order Comment: No: D o not add to previous draw Performed By: #### 1 0, 97977, 27860 #### [facility] [address] [place] [address], [place] Sodium [Moles/Vol] 136 mmol/L Normal 136-145 [facility] Comment on above: Order Comment: No: D o not add to previous draw Performed By: #### 1 0070, 68785, 34840 #### [facility] [address] [place] [address], [place] Urea nitrogen [Mass/Vol] 11 mg/dL Normal 7-25 [facility] Comment on above: Order Comment: No: D o not add to previous draw Performed By: #### 1 0070, 77172, 40426 #### [facility] [address] [place] [address], [facility] CBC COMPLETE BLOOD COUNTon 0 10-28-2021 Erythrocyte distribution width (RBC) [Ratio] 14.7 % Normal 11.5-15.0 [facility] Comment on above: Order Comment: RLQ P ERIHEPATIC FLUID DRAINAGE Performed By: #### 3 0310 #### [facility] [address] [place] [address], [facility] Hematocrit (Bld) [Volume fraction] 25.3 % Low 36.0-45.0 [facility] Comment on above: Order Comment: RLQ P ERIHEPATIC FLUID DRAINAGE Performed By: #### 3 0310 #### [facility] [address] [place] [address], [facility] Hemoglobin (Bld) [Mass/Vol] 8.0 g/dL Low 12.0-15.0 [facility] Comment on above: Order Comment: RLQ P ERIHEPATIC FLUID DRAINAGE Performed By: #### 3 0310 #### [facility] [address] [facility] [place] [address], [facility] MCH (RBC) [Entitic mass] 30.2 pg Normal 27.0-33.0 [facility] Comment on above: Order Comment: RLQ P ERIHEPATIC FLUID DRAINAGE Performed By: #### 3 0310 #### [facility] [address] [place] [address], [facility] MCHC (RBC) [Mass/Vol] 31.6 g/dL Low 32.0-35.0 [facility] Comment on above: Order Comment: RLQ P ERIHEPATIC FLUID DRAINAGE Performed By: #### 3 0310 #### [facility] [address] [place] [address], [facility] MCV (RBC) [Entitic vol] 95.5 fL Normal 82.0-98.0 [facility] Comment on above: Order Comment: RLQ P ERIHEPATIC FLUID DRAINAGE Performed By: #### 3 0310 #### [facility] [address] [facility] [place] [address], [facility] Nucleated RBC/100 WBC (Bld) [Ratio] 0 % Normal 0-0 [facility] Comment on above: Order Comment: RLQ P ERIHEPATIC FLUID DRAINAGE Performed By: #### 3 0310 #### [facility] [address] [place] [address], [facility] PLAT CNT 603 10*3/uL High 150-400 [facility] Comment on above: Order Comment: RLQ P ERIHEPATIC FLUID DRAINAGE Performed By: #### 3 0310 #### [facility] [address] [place] [address], [facility] RBC (Bld) [#/Vol] 2.65 10*6/uL Low 3.80-5.00 [facility] Comment on above: Order Comment: RLQ P ERIHEPATIC FLUID DRAINAGE Performed By: #### 3 0310 #### [facility] [address] [place] [address], [facility] WBC (Bld) [#/Vol] 8.36 10*3/uL Normal 4.00-10.60 [facility] Comment on above: Order Comment: RLQ P ERIHEPATIC FLUID DRAINAGE Performed By: #### 3 0310 #### [facility] [address] [place] [address], [facility] MAGNESIUM BLOODon 10-28-2021 Magnesium [Mass/Vol] 2.0 mg/dL Normal 1.9-2.7 [facility] Comment on above: Order Comment: No: D o not add to previous draw Performed By: #### 1 0070, 01387, 20424 #### [facility] [address] [place] [address], [facility] PHOSPHORUS BLOODon 05-04-202 2 Phosphate [Mass/Vol] 3.5 mg/dL Normal 2.5-5.0 [facility] Comment on above: Order Comment: No: D o not add to previous draw Performed By: #### 1 0070, 23546, 48165 #### [facility] [address] [place] [address], [facility] BASIC METABOLIC PANELon 05-0 Calcium [Mass/Vol] 8.6 mg/dL Normal 8.6-10.3 [facility] Comment on above: Order Comment: No: D o not add to previous draw Performed By: #### 1 0070, 03490, 63578 ####[facility] [place] [address], [facility] Chloride [Moles/Vol] 102 mmol/L Normal 98-107 [facility] Comment on above: Order Comment: No: D o not add to previous draw Performed By: #### 1 0070, 61077, 61484 ####[facility] [place] [address], [facility] CO2 [Moles/Vol] 28 mmol/L Normal 21-31 [facility] Comment on above: Order Comment: No: D o not add to previous draw Performed By: #### 1 0070, 17381, 98679 ####[facility] [place] [address], [facility] Creatinine [Mass/Vol] 0.52 mg/dL Low 0.60-1.20 [facility] Comment on above: Order Comment: No: D o not add to previous draw Performed By: #### 1 0070, 10658, 06361 ####[facility] [place] [address], [facility] GFR/1.73 sq M.predicted among blacks MDRD (S/P/Bld) [Vol rate/Area] mL/min/{1.73_m2} Normal >60 [facility] Comment on above: Order Comment: No: D o not add to previous draw Performed By: #### 1 0, 74875, 61258 ####[facility] [address], [facility] GFR/1.73 sq M.predicted among non-blacks MDRD (S/P/Bld) [Vol rate/Area] mL/min/{1.73_m2} Normal >60 [facility] Comment on above: Order Comment: No: D o not add to previous draw Performed By: #### 1 0070, 24321, 11393 ####[facility] [place] [address], [facility] Glucose [Mass/Vol] 95 mg/dL Normal 70-100 [facility] Comment on above: Order Comment: No: D o not add to previous draw Performed By: #### 1 0, 20464, 08654 ####[facility] [place] [address], [place] Potassium [Moles/Vol] 4.1 mmol/L Normal 3.5-5.1 [facility] Comment on above: Order Comment: No: D o not add to previous draw Performed By: #### 1 0, 98572, 20089 ####[facility] [place] [address], [place] Sodium [Moles/Vol] 135 mmol/L Low 136-145 [facility] Comment on above: Order Comment: No: D o not add to previous draw Performed By: #### 1 0, 70043, 91663 ####[facility] [place] [address], [place] Urea nitrogen [Mass/Vol] 11 mg/dL Normal 7-25 [facility] Comment on above: Order Comment: No: D o not add to previous draw Performed By: #### 1 0, 39812, 92620 ####[facility] CBC COMPLETE BLOOD COUNTon 0 - Erythrocyte distribution width (RBC) [Ratio] 14.6 % Normal 11.5-15.0 [facility] Comment on above: Order Comment: RLQ P ERIHEPATIC FLUID DRAINAGE Performed By: #### 3 0310 #### [facility] [address] [place] [address], [facility] Hematocrit (Bld) [Volume fraction] 25.2 % Low 36.0-45.0 [facility] Comment on above: Order Comment: RLQ P ERIHEPATIC FLUID DRAINAGE Performed By: #### 3 0310 #### [facility] [address] [place] [address], [facility] Hemoglobin (Bld) [Mass/Vol] 7.9 g/dL Low 12.0-15.0 [facility] Comment on above: Order Comment: RLQ P ERIHEPATIC FLUID DRAINAGE Performed By: #### 3 0310 #### [facility] [address] [place] [id number], [facility] MCH (RBC) [Entitic mass] 30.2 pg Normal 27.0-33.0 [facility] Comment on above: Order Comment: RLQ P ERIHEPATIC FLUID DRAINAGE Performed By: #### 3 0310 #### [facility] [address] [place] [address], [facility] MCHC (RBC) [Mass/Vol] 31.3 g/dL Low 32.0-35.0 [facility] Comment on above: Order Comment: RLQ P ERIHEPATIC FLUID DRAINAGE Performed By: #### 3 0310 #### [facility] [address] [place] [address], [facility] MCV (RBC) [Entitic vol] 96.2 fL Normal 82.0-98.0 [facility] Comment on above: Order Comment: RLQ P ERIHEPATIC FLUID DRAINAGE Performed By: #### 3 0310 #### [facility] [address] [place] [address], [facility] Nucleated RBC/100 WBC (Bld) [Ratio] 0 % Normal 0-0 [facility] Comment on above: Order Comment: RLQ P ERIHEPATIC FLUID DRAINAGE Performed By: #### 3 0310 #### [facility] [address] [place] [address], [facility] PLAT CNT 660 10*3/uL High 150-400 [facility] Comment on above: Order Comment: RLQ P ERIHEPATIC FLUID DRAINAGE Performed By: #### 3 0310 #### [facility] [address] [place] [address], [facility] RBC (Bld) [#/Vol] 2.62 10*6/uL Low 3.80-5.00 [facility] Comment on above: Order Comment: RLQ P ERIHEPATIC FLUID DRAINAGE Performed By: #### 3 0310 #### [facility] [address] [place] [address], [facility] WBC (Bld) [#/Vol] 8.42 10*3/uL Normal 4.00-10.60 [facility] Comment on above: Order Comment: RLQ P ERIHEPATIC FLUID DRAINAGE Performed By: #### 3 0310 #### [facility] [address] [place] [address], [facility] MAGNESIUM BLOODon 10-27-2021 Magnesium [Mass/Vol] 2.2 mg/dL Normal 1.9-2.7 [facility] Comment on above: Order Comment: No: D o not add to previous draw Performed By: #### 1 0070, 57767, 81611 ####[facility] [facility] [address], [facility] PHOSPHORUS BLOODon Phosphate [Mass/Vol] 3.4 mg/dL Normal 2.5-5.0 [facility] Comment on above: Order Comment: No: D o not add to previous draw Performed By: #### 1 0070, 40685, 65001 #### [facility] [address] [place] [address], [place] BASIC METABOLIC PANELon 05-0 -2021 Calcium [Mass/Vol] 8.4 mg/dL Low 8.6-10.3 [facility] Comment on above: Order Comment: No: D o not add to previous draw Performed By: #### 8 5499 #### [facility] [address] [place] [address], [place] Chloride [Moles/Vol] 103 mmol/L Normal 98-107 [facility] Comment on above: Order Comment: No: D o not add to previous draw Performed By: #### 8 5499 #### [facility] [address] [place] [address], [place] CO2 [Moles/Vol] 26 mmol/L Normal 21-31 [facility] Comment on above: Order Comment: No: D o not add to previous draw Performed By: #### 8 5499 #### [facility] [address] [place] [address], [place] Creatinine [Mass/Vol] 0.58 mg/dL Low 0.60-1.20 [facility] Comment on above: Order Comment: No: D o not add to previous draw Performed By: #### 8 5499 #### [facility] [address] [place] [address], [place] GFR/1.73 sq M.predicted among blacks MDRD (S/P/Bld) [Vol rate/Area] mL/min/{1.73_m2} Normal >60 [facility] Comment on above: Order Comment: No: D o not add to previous draw Performed By: #### 8 5499 #### [facility] [address] [place] [address], [place] GFR/1.73 sq M.predicted among non-blacks MDRD (S/P/Bld) [Vol rate/Area] mL/min/{1.73_m2} Normal >60 [facility] Comment on above: Order Comment: No: D o not add to previous draw Performed By: #### 8 5499 #### [facility] [address] [place] [address], [place] Glucose [Mass/Vol] 101 mg/dL High 70-100 [facility] Comment on above: Order Comment: No: D o not add to previous draw Performed By: #### 8 5499 #### [facility] [address] [place] [address], [place] Potassium [Moles/Vol] 4.2 mmol/L Normal 3.5-5.1 [facility] Comment on above: Order Comment: No: D o not add to previous draw Performed By: #### 8 5499 #### [facility] [address] [place] [address], [place] Sodium [Moles/Vol] 133 mmol/L Low 136-145 [facility] Comment on above: Order Comment: No: D o not add to previous draw Performed By: #### 8 5499 #### [facility] [address] [place] [address], [facility] Urea nitrogen [Mass/Vol] 9 mg/dL Normal 7-25 [facility] Comment on above: Order Comment: No: D o not add to previous draw Performed By: #### 8 5499 #### [facility] [address] [place] [address], [place] CBC COMPLETE BLOOD COUNTon 0 - Erythrocyte distribution width (RBC) [Ratio] 14.7 % Normal 11.5-15.0 [facility] Comment on above: Order Comment: No: D o not add to previous draw Performed By: #### 1 0070, 68619, 02886 #### [facility] [address] [place] [address], [place] Hematocrit (Bld) [Volume fraction] 24.1 % Low 36.0-45.0 [facility] Comment on above: Order Comment: No: D o not add to previous draw Performed By: #### 1 69, 87258, 81379 #### [facility] [address] [place] [address], [facility] Hemoglobin (Bld) [Mass/Vol] 7.7 g/dL Low 12.0-15.0 [facility] Comment on above: Order Comment: No: D o not add to previous draw Performed By: #### 1 69, 95799, 81900 #### [facility] [address] [place] [address], [facility] MCH (RBC) [Entitic mass] 29.8 pg Normal 27.0-33.0 [facility] Comment on above: Order Comment: No: D o not add to previous draw Performed By: #### 1 69, , 69368 #### [facility] [address] [place] [address], [facility] MCHC (RBC) [Mass/Vol] 32.0 g/dL Normal 32.0-35.0 [facility] Comment on above: Order Comment: No: D o not add to previous draw Performed By: #### 1 69, 47368, 27982 #### [facility] [address] [place] [address], [facility] MCV (RBC) [Entitic vol] 93.4 fL Normal 82.0-98.0 [facility] Comment on above: Order Comment: No: D o not add to previous draw Performed By: #### 1 69, 79659, 11521 #### [facility] [facility] [address] [place] [id number], [facility] Nucleated RBC/100 WBC (Bld) [Ratio] 0 % Normal 0-0 The [facility] Comment on above: Order Comment: No: D o not add to previous draw Performed By: #### 1 69, 58192, 18506 #### [facility] [address] [place] [address], [facility] PLAT CNT 604 10*3/uL High 150-400 The [facility] Comment on above: Order Comment: No: D o not add to previous draw Performed By: #### 1 0070, 47627, 97838 #### [facility] [address] [place] [address], [facility] RBC (Bld) [#/Vol] 2.58 10*6/uL Low 3.80-5.00 The [facility] Comment on above: Order Comment: No: D o not add to previous draw Performed By: #### 1 0070, 84957, 81782 #### [facility] [address] [facility] [place] [address], [facility] WBC (Bld) [#/Vol] 9.58 10*3/uL Normal 4.00-10.60 The [facility] Comment on above: Order Comment: No: D o not add to previous draw Performed By: #### 1 0070, 68938, 83411 #### [facility] [address] [facility] MAGNESIUM BLOODon 10-26-2021 Magnesium [Mass/Vol] 2.3 mg/dL Normal 1.9-2.7 The [facility] Comment on above: Order Comment: No: D o not add to previous draw Performed By: #### 8 1709 #### [facility] [address] [facility] [place] [address], [facility] PHOSPHORUS BLOODon 2 Phosphate [Mass/Vol] 3.5 mg/dL Normal 2.5-5.0 The [facility] Comment on above: Order Comment: No: D o not add to previous draw Performed By: #### 8 6906 #### [facility] [address] [place] [address], [facility] BASIC METABOLIC PANELon 05-0 Calcium [Mass/Vol] 8.1 mg/dL Low 8.6-10.3 The [facility] Comment on above: Order Comment: No: D o not add to previous draw Performed By: #### 1 0070, 60708, 83550 #### [facility] [address] [place] [address], [place] Chloride [Moles/Vol] 103 mmol/L Normal 98-107 The [facility] Comment on above: Order Comment: No: D o not add to previous draw Performed By: #### 1 0070, 78950, 08881 #### [facility] [address] [place] [address], [place] CO2 [Moles/Vol] 25 mmol/L Normal 21-31 [facility] Comment on above: Order Comment: No: D o not add to previous draw Performed By: #### 1 0070, 24506, 49852 #### [facility] [address] [place] [address], [place] Creatinine [Mass/Vol] 0.60 mg/dL Normal 0.60-1.20 The [facility] Comment on above: Order Comment: No: D o not add to previous draw Performed By: #### 1 0070, 59767, 26030 #### [facility] [address] [place] [address], [place] GFR/1.73 sq M.predicted among blacks MDRD (S/P/Bld) [Vol rate/Area] mL/min/{1.73_m2} Normal >60 The [facility] Comment on above: Order Comment: No: D o not add to previous draw Performed By: #### 1 0070, 28516, 20255 #### [facility] [address] [place] [address], [place] GFR/1.73 sq M.predicted among non-blacks MDRD (S/P/Bld) [Vol rate/Area] mL/min/{1.73_m2} Normal >60 The [facility] Comment on above: Order Comment: No: D o not add to previous draw Performed By: #### 1 0, 97718, 62966 #### [facility] [address] [place] [address], [facility] Glucose [Mass/Vol] 124 mg/dL High 70-100 The [facility] Comment on above: Order Comment: No: D o not add to previous draw Performed By: #### 1 0, 67393, 76953 #### [facility] [address] [place] [address], [facility] Potassium [Moles/Vol] 4.0 mmol/L Normal 3.5-5.1 [facility] Comment on above: Order Comment: No: D o not add to previous draw Performed By: #### 1 0, 82835, 53666 #### [facility] [address] [place] [address], [facility] Sodium [Moles/Vol] 134 mmol/L Low 136-145 The [facility] Comment on above: Order Comment: No: D o not add to previous draw Performed By: #### 1 0, 41741, 60510 #### [facility] [address] [place] [address], [facility] Urea nitrogen [Mass/Vol] 8 mg/dL Normal 7-25 [facility] Comment on above: Order Comment: No: D o not add to previous draw Performed By: #### 1 0, 19880, 27543 #### [facility] [address] [facility] [address], [facility] CBC W/DIFFon 10-25-2021 ABS IMM GRANS 0.2 10*3/uL Normal 0.0-0.2 The [facility] Comment on above: Performed By: #### 3 3260 #### [facility] [address] [place] [address], [facility] ABS NEUTROPHILS 7.0 10*3/uL Normal 1.6-7.6 The [facility] Comment on above: Performed By: #### 3 2890 #### [facility] [address] [place] [address], [facility] Basophils (Bld) [#/Vol] 0.0 10*3/uL Normal 0.0-0.2 [facility] Comment on above: Performed By: #### 3 0310 #### [facility] [address] [place] [address], [facility] Basophils/100 WBC (Bld) 0.2 % Normal 0.0-1.0 [facility] Comment on above: Performed By: #### 3 0310 #### [facility] [address] [facility] [address], [facility] Eosinophils (Bld) [#/Vol] 0.1 10*3/uL Normal 0.0-0.5 [facility] Comment on above: Performed By: #### 3 0310 #### [facility] [address] [place] [address], [facility] Eosinophils/100 WBC (Bld) 0.9 % Normal 0.0-6.0 [facility] Comment on above: Performed By: #### 3 0310 #### [facility] [address] [facility] [place] [address], [facility] Erythrocyte distribution width (RBC) [Ratio] 14.5 % Normal 11.5-15.0 [facility] Comment on above: Performed By: #### 3 0310 #### [facility] [address] [facility] [place] [address], [facility] Hematocrit (Bld) [Volume fraction] 23.5 % Low 36.0-45.0 [facility] Comment on above: Performed By: #### 3 0310 #### [facility] [address] [place] [id number], [facility] Hemoglobin (Bld) [Mass/Vol] 7.9 g/dL Low 12.0-15.0 [facility] Comment on above: Performed By: #### 3 0310 #### [facility] [address] [facility] [place] [address], [facility] IMMATURE GRANS 2.6 % High 0.0-1.0 The [facility] Comment on above: Performed By: #### 3 0310 #### [facility] [address] [facility] [place] [address], [facility] Lymphocytes (Bld) [#/Vol] 1.2 10*3/uL Normal 1.2-4.0 [facility] Comment on above: Performed By: #### 3 0310 #### [facility] [address] [place] [address], [facility] Lymphocytes/100 WBC (Bld) 13.2 % Low 20.0-45.0 [facility] Comment on above: Performed By: #### 3 0310 #### [facility] [address] [facility] [address], [facility] MCH (RBC) [Entitic mass] 31.0 pg Normal 27.0-33.0 [facility] Comment on above: Performed By: #### 3 0310 #### [facility] [address] [facility] [address], [facility] MCHC (RBC) [Mass/Vol] 33.6 g/dL Normal 32.0-35.0 [facility] Comment on above: Performed By: #### 3 0310 #### [facility] [address] [place] [address], [facility] MCV (RBC) [Entitic vol] 92.2 fL Normal 82.0-98.0 [facility] Comment on above: Performed By: #### 3 0310 #### [facility] [address] [place] [address], [facility] Monocytes (Bld) [#/Vol] 0.6 10*3/uL Normal 0.1-1.0 [facility] Comment on above: Performed By: #### 3 0310 #### [facility] [address] [place] [address], [facility] MONOS 6.5 % Normal 5.0-12.0 [facility] Comment on above: Performed By: #### 3 0310 #### [facility] [address] [place] [address], [facility] Neutrophils/100 WBC (Bld) 76.6 % High 40.0-72.0 [facility] Comment on above: Performed By: #### 3 0310 #### [facility] [address] [place] [id number], [facility] Nucleated RBC/100 WBC (Bld) [Ratio] 0 % Normal 0-0 [facility] Comment on above: Performed By: #### 3 0310 #### [facility] [address] [facility] [place] [address], [facility] PLAT CNT 586 10*3/uL High 150-400 The [facility] Comment on above: Performed By: #### 3 0310 #### [facility] [address] [facility] [place] [place] [address], [facility] RBC (Bld) [#/Vol] 2.55 10*6/uL Low 3.80-5.00 The [facility] Comment on above: Performed By: #### 3 0310 #### [facility] [address] [facility] [address], [facility] WBC (Bld) [#/Vol] 9.12 10*3/uL Normal 4.00-10.60 [facility] Comment on above: Performed By: #### 3 0310 #### [facility] [address] [facility] [address], [facility] MAGNESIUM BLOODon 10-25-2021 Magnesium [Mass/Vol] 2.3 mg/dL Normal 1.9-2.7 [facility] Comment on above: Order Comment: No: D o not add to previous draw Performed By: #### 1 0070, 61470, 44226 #### [facility] [address] PHOSPHORUS BLOODon 2 Phosphate [Mass/Vol] 3.8 mg/dL Normal 2.5-5.0 [facility] Comment on above: Order Comment: No: D o not add to previous draw Performed By: #### 1 0070, 22490, 01201 #### [facility] [address] *ANAEROBIC CULTUREon 022 *ANAEROBIC CULTURE Clinical Report: (C) Specimen: FLUID Collected: 10/24/2021 12:45 Status: Final Last Updated: 10/29/2021 07:44 (1) Post Surgical Abscess ISO (Final) ^No Anaerobes Isolated 5 Days Result changed by AVILA on 10/29/2021 07:44. The previous result was: ISO (Prelim) ^No strict anaerobes isolated to Date Normal [facility] Comment on above: Order Comment: Post Surgical Abscess Performed By: #### 8 5499 #### [facility] [address] *BODY FLUID CULTUREon 2021 *BODY FLUID CULTURE Clinical Report: (D) Specimen: FLUID Collected: 10/24/2021 12:45 Status: Final Last Updated: 10/26/2021 09:49 (1) Post Surgical Abscess GRAM (Final) Many Polys No Bacteria Seen ISO (Final) Escherichia coli Light Growth ISOLATE: Escherichia coli --- MILLICENT (mcg/ml) AMP./SULBAC (AMS) 4/2 Susceptible AMPICILLIN (AM) <=4 Susceptible AZTREONAM (AZM) <=2 Susceptible CEFAZOLIN (CZ) 4 Susceptible CEFTRIAXONE (GOAT DRIVER) <=1 Susceptible CIPROFLOXACIN (CIP) <=0.25 Susceptible ESBL (-/+) (ESBL) Negative GENTAMICIN (GM) <=2 Susceptible PIP/TAZO (TZP) <=2/4 Susceptible TOBRAMYCIN (TOB) <=2 Susceptible TRIMETH/SULFA (SXT) <=0.5/9.5 Susceptible Normal [facility] Comment on above: Order Comment: Post Surgical Abscess Performed By: #### 8 5499 #### [facility] [address] [place] [address], [facility] BASIC METABOLIC PANELon 04-3 -2021 Calcium [Mass/Vol] 8.2 mg/dL Low 8.6-10.3 [facility] Comment on above: Order Comment: No: D o not add to previous draw Performed By: #### 1 0070, 00885, 68538 #### [facility] [address] [place] [id number], [facility] Chloride [Moles/Vol] 103 mmol/L Normal 98-107 [facility] Comment on above: Order Comment: No: D o not add to previous draw Performed By: #### 1 0070, 28397, 21482 #### [facility] [address] [place] [address], [facility] CO2 [Moles/Vol] 25 mmol/L Normal 21-31 The [facility] Comment on above: Order Comment: No: D o not add to previous draw Performed By: #### 1 0070, 12895, 24254 #### [facility] [address] [place] [address], [facility] Creatinine [Mass/Vol] 0.49 mg/dL Low 0.60-1.20 [facility] Comment on above: Order Comment: No: D o not add to previous draw Performed By: #### 1 0070, 12833, 51976 #### [facility] [address] [place] [id number], [facility] GFR/1.73 sq M.predicted among blacks MDRD (S/P/Bld) [Vol rate/Area] mL/min/{1.73_m2} Normal >60 [facility] Comment on above: Order Comment: No: D o not add to previous draw Performed By: #### 1 0, 62674, 65812 #### [facility] [address] [place] [address], [place] GFR/1.73 sq M.predicted among non-blacks MDRD (S/P/Bld) [Vol rate/Area] mL/min/{1.73_m2} Normal >60 [facility] Comment on above: Order Comment: No: D o not add to previous draw Performed By: #### 1 0, 48184, 72793 #### [facility] [address] [place] [address], [place] Glucose [Mass/Vol] 94 mg/dL Normal 70-100 [facility] Comment on above: Order Comment: No: D o not add to previous draw Performed By: #### 1 0, 77393, 68299 #### [facility] [address] [place] [address], [place] Potassium [Moles/Vol] 4.3 mmol/L Normal 3.5-5.1 [facility] Comment on above: Order Comment: No: D o not add to previous draw Performed By: #### 1 69, 29858, 63424 #### [facility] [address] [place] [address], [place] Sodium [Moles/Vol] 134 mmol/L Low 136-145 [facility] Comment on above: Order Comment: No: D o not add to previous draw Performed By: #### 1 0, 22357, 92901 #### [facility] [address] [place] [address], [place] Urea nitrogen [Mass/Vol] 8 mg/dL Normal 7-25 [facility] Comment on above: Order Comment: No: D o not add to previous draw Performed By: #### 1 0, 24728, 72776 #### [facility] [address] [place] [address], [place] C REACTIVE PROTEINon 022 CRP [Mass/Vol] 136.0 mg/L High 0.0-7.0 The [facility] Comment on above: Order Comment: No: D o not add to previous draw Performed By: #### 8 5499 #### [facility] [address] [place] [address], [facility] CALCIUM IONIZED CBGLon 10-24 IONIZED CALCIUM 1.22 mmol/L Normal 1.12-1.30 [facility] Comment on above: Performed By: #### 8 5499 #### [facility] [address] [place] [address], [facility] CBC COMPLETE BLOOD COUNTon 0 10-24-2021 Erythrocyte distribution width (RBC) [Ratio] 14.5 % Normal 11.5-15.0 [facility] Comment on above: Order Comment: RLQ P ERIHEPATIC FLUID DRAINAGE Performed By: #### 3 0310 #### [facility] [address] [place] [address], [facility] Hematocrit (Bld) [Volume fraction] 22.8 % Low 36.0-45.0 [facility] Comment on above: Order Comment: RLQ P ERIHEPATIC FLUID DRAINAGE Performed By: #### 3 0310 #### [facility] [address] [place] [address], [facility] Hemoglobin (Bld) [Mass/Vol] 7.5 g/dL Low 12.0-15.0 [facility] Comment on above: Order Comment: RLQ P ERIHEPATIC FLUID DRAINAGE Performed By: #### 3 0310 #### [facility] [address] [place] [address], [facility] MCH (RBC) [Entitic mass] 30.5 pg Normal 27.0-33.0 [facility] Comment on above: Order Comment: RLQ P ERIHEPATIC FLUID DRAINAGE Performed By: #### 3 0310 #### [facility] [address] [place] [address], [facility] MCHC (RBC) [Mass/Vol] 32.9 g/dL Normal 32.0-35.0 [facility] Comment on above: Order Comment: RLQ P ERIHEPATIC FLUID DRAINAGE Performed By: #### 3 0310 #### [facility] [address] [place] [id number], [facility] MCV (RBC) [Entitic vol] 92.7 fL Normal 82.0-98.0 [facility] Comment on above: Order Comment: RLQ P ERIHEPATIC FLUID DRAINAGE Performed By: #### 3 0310 #### [facility] [address] [place] [address], [facility] Nucleated RBC/100 WBC (Bld) [Ratio] 0 % Normal 0-0 [facility] Comment on above: Order Comment: RLQ P ERIHEPATIC FLUID DRAINAGE Performed By: #### 3 0310 #### [facility] [address] [place] [address], [place] PLAT CNT 522 10*3/uL High 150-400 The [facility] Comment on above: Order Comment: RLQ P ERIHEPATIC FLUID DRAINAGE Performed By: #### 3 0310 #### [facility] [address] [place] [id number], [facility] RBC (Bld) [#/Vol] 2.46 10*6/uL Low 3.80-5.00 [facility] Comment on above: Order Comment: RLQ P ERIHEPATIC FLUID DRAINAGE Performed By: #### 3 0310 #### [facility] [address] [place] [address], [place] WBC (Bld) [#/Vol] 12.81 10*3/uL High 4.00-10.60 [facility] Comment on above: Order Comment: RLQ P ERIHEPATIC FLUID DRAINAGE Performed By: #### 3 0310 #### [facility] [address] [place] [address], [place] LIVER BATTERYon 10-24-2021 Albumin [Mass/Vol] 2.8 g/dL Low 3.5-5.7 [facility] Comment on above: Order Comment: No: D o not add to previous draw Performed By: #### 1 0070, 86851, 68622 #### [facility] [address] [place] [address], [place] ALKALINE PHOSPH 149 IU/L High 34-104 [facility] Comment on above: Order Comment: No: D o not add to previous draw Performed By: #### 1 0070, 06218, 59165 #### [facility] [address] [place] [address], [place] ALT [Catalytic activity/Vol] 55 U/L High 7-52 [facility] Comment on above: Order Comment: No: D o not add to previous draw Performed By: #### 1 0070, 72748, 14639 #### [facility] [address] [place] [address], [place] AST [Catalytic activity/Vol] 38 U/L Normal 13-39 [facility] Comment on above: Order Comment: No: D o not add to previous draw Performed By: #### 1 0070, 59120, 33182 #### [facility] [address] [place] [address], [place] Bilirubin [Mass/Vol] 2.9 mg/dL High 0.3-1.0 [facility] Comment on above: Order Comment: No: D o not add to previous draw Performed By: #### 1 0070, 59186, 85264 #### [facility] [address] [place] [address], [place] Bilirubin.direct [Mass/Vol] 1.7 mg/dL High 0.0-0.2 [facility] Comment on above: Order Comment: No: D o not add to previous draw Performed By: #### 1 0070, 80333, 54714 #### [facility] [address] [place] [address], [place] Protein [Mass/Vol] 5.6 g/dL Low 6.0-8.3 [facility] Comment on above: Order Comment: No: D o not add to previous draw Performed By: #### 1 0070, 27225, 34533 #### [facility] [address] [place] [address], [place] MAGNESIUM BLOODon 10-24-2021 Magnesium [Mass/Vol] 2.1 mg/dL Normal 1.9-2.7 [facility] Comment on above: Order Comment: No: D o not add to previous draw Performed By: #### 1 0070, 20429, 59578 #### [facility] [address] [place] [address], [place] PHOSPHORUS BLOODon Phosphate [Mass/Vol] 3.6 mg/dL Normal 2.5-5.0 [facility] Comment on above: Order Comment: No: D o not add to previous draw Performed By: #### 1 0, 98205, 64706 #### [facility] [address] [place] [address], [place] POC GLUCOSE LABon 10-24-2021 Glucose [Mass/Vol] 101 mg/dL High 70-100 [facility] Comment on above: Performed By: #### 8 7669 #### [facility] [address] [place] [address], [place] Glucose [Mass/Vol] 107 mg/dL High 70-100 [facility] Comment on above: Performed By: #### 8 5989 #### [facility] [address] [place] [address], [place] Glucose [Mass/Vol] 114 mg/dL High 70-100 [facility] Comment on above: Performed By: #### 8 9259 #### [facility] [address] [place] [address], [facility] PREALBUMINon 10-24-2021 Prealbumin [Mass/Vol] 12.6 mg/dL Low 17.0-34.0 [facility] Comment on above: Order Comment: No: D o not add to previous draw Performed By: #### 1 0070, 00366, 14465 #### [facility] [address] [place] [address], [facility] TRIGLYCERIDES BLOODon 2021 Triglyceride [Mass/Vol] 122 mg/dL Normal 40-149 [facility] Comment on above: Order Comment: No: D o not add to previous draw Result Comment: TRIG LYCERIDE REFERENCE RANGE: 20 YEARS AND OLDER CARDIOVASCULAR RISK LESS THAN 150 mg/dl LOW RISK 150 TO 199 mg/dl BORDERLINE RISK 200 mg/dl AND GREATER HIGH RISK Performed By: #### 1 0070, 93109, 80583 #### [facility] [address] APTTon 10-23-2021 aPTT Coag (Bld) [Time] 26.1 s Normal 25.0-35.0 [facility] Comment on above: Result Comment: ALL RESULTS [...] PURPOSE. Performed By: #### 8 5499 #### [facility] [address] [place] [address], [facility] BASIC METABOLIC PANELon 09-26 Calcium [Mass/Vol] 8.3 mg/dL Low 8.6-10.3 [facility] Comment on above: Order Comment: No: D o not add to previous draw Performed By: #### 1 0070, 61651, 62276 #### [facility] [address] [place] [address], [facility] Chloride [Moles/Vol] 102 mmol/L Normal 98-107 [facility] Comment on above: Order Comment: No: D o not add to previous draw Performed By: #### 1 0070, 22583, 52626 #### [facility] [address] [place] [address], [place] CO2 [Moles/Vol] 26 mmol/L Normal 21-31 [facility] Comment on above: Order Comment: No: D o not add to previous draw Performed By: #### 1 0070, 90203, 79441 #### [facility] [address] [place] [address], [place] Creatinine [Mass/Vol] 0.43 mg/dL Low 0.60-1.20 [facility] Comment on above: Order Comment: No: D o not add to previous draw Performed By: #### 1 0, 48949, 85795 #### [facility] [address] [place] [address], [place] GFR/1.73 sq M.predicted among blacks MDRD (S/P/Bld) [Vol rate/Area] mL/min/{1.73_m2} Normal >60 [facility] Comment on above: Order Comment: No: D o not add to previous draw Performed By: #### 1 0070, 00279, 63306 #### [facility] [address] [place] [address], [place] GFR/1.73 sq M.predicted among non-blacks MDRD (S/P/Bld) [Vol rate/Area] mL/min/{1.73_m2} Normal >60 [facility] Comment on above: Order Comment: No: D o not add to previous draw Performed By: #### 1 0070, 19369, [id number] #### [facility] [address] [place] [address], [place] Glucose [Mass/Vol] 100 mg/dL Normal 70-100 [facility] Comment on above: Order Comment: No: D o not add to previous draw Performed By: #### 1 0070, 18771, 36794 #### [facility] [address] [place] [address], [facility] Potassium [Moles/Vol] 3.3 mmol/L Low 3.5-5.1 [facility] Comment on above: Order Comment: No: D o not add to previous draw Performed By: #### 1 0070, 49651, 66698 #### [facility] [address] [place] [address], [facility] Sodium [Moles/Vol] 135 mmol/L Low 136-145 [facility] Comment on above: Order Comment: No: D o not add to previous draw Performed By: #### 1 0070, 98875, 71613 #### [facility] [address] [place] [address], [facility] Urea nitrogen [Mass/Vol] 8 mg/dL Normal 7-25 [facility] Comment on above: Order Comment: No: D o not add to previous draw Performed By: #### 1 0070, 19633, 77632 #### [facility] [address] [facility] [place] [address], [facility] CBC W/DIFFon 10-23-2021 ABS IMM GRANS 0.4 10*3/uL High 0.0-0.2 The [facility] Comment on above: Order Comment: RLQ P ERIHEPATIC FLUID DRAINAGE Performed By: #### 3 0310 #### [facility] [address] [place] [address], [facility] ABS NEUTROPHILS 12.4 10*3/uL High 1.6-7.6 The [facility] Comment on above: Order Comment: RLQ P ERIHEPATIC FLUID DRAINAGE Performed By: #### 3 0310 #### [facility] [address] [place] [id number], [facility] Basophils (Bld) [#/Vol] 0.0 10*3/uL Normal 0.0-0.2 [facility] Comment on above: Order Comment: RLQ P ERIHEPATIC FLUID DRAINAGE Performed By: #### 3 0310 #### [facility] [address] [place] [address], [facility] Basophils/100 WBC (Bld) 0.2 % Normal 0.0-1.0 [facility] Comment on above: Order Comment: RLQ P ERIHEPATIC FLUID DRAINAGE Performed By: #### 3 0310 #### [facility] [address] [place] [address], [facility] Eosinophils (Bld) [#/Vol] 0.1 10*3/uL Normal 0.0-0.5 [facility] Comment on above: Order Comment: RLQ P ERIHEPATIC FLUID DRAINAGE Performed By: #### 3 0310 #### [facility] [address] [place] [address], [facility] Eosinophils/100 WBC (Bld) 0.5 % Normal 0.0-6.0 [facility] Comment on above: Order Comment: RLQ P ERIHEPATIC FLUID DRAINAGE Performed By: #### 3 0310 #### [facility] [address] [place] [address], [facility] Erythrocyte distribution width (RBC) [Ratio] 14.0 % Normal 11.5-15.0 [facility] Comment on above: Order Comment: RLQ P ERIHEPATIC FLUID DRAINAGE Performed By: #### 3 0310 #### [facility] [address] [place] [address], [facility] Hematocrit (Bld) [Volume fraction] 23.5 % Low 36.0-45.0 [facility] Comment on above: Order Comment: RLQ P ERIHEPATIC FLUID DRAINAGE Performed By: #### 3 0310 #### [facility] [address] [place] [address], [facility] Hemoglobin (Bld) [Mass/Vol] 7.5 g/dL Low 12.0-15.0 [facility] Comment on above: Order Comment: RLQ P ERIHEPATIC FLUID DRAINAGE Performed By: #### 3 0310 #### [facility] [address] [place] [address], [facility] IMMATURE GRANS 2.6 % High 0.0-1.0 The [facility] Comment on above: Order Comment: RLQ P ERIHEPATIC FLUID DRAINAGE Performed By: #### 3 0310 #### [facility] [address] [place] [address], [facility] Lymphocytes (Bld) [#/Vol] 1.7 10*3/uL Normal 1.2-4.0 [facility] Comment on above: Order Comment: RLQ P ERIHEPATIC FLUID DRAINAGE Performed By: #### 3 0310 #### [facility] [address] [place] [id number], [facility] Lymphocytes/100 WBC (Bld) 10.9 % Low 20.0-45.0 [facility] Comment on above: Order Comment: RLQ P ERIHEPATIC FLUID DRAINAGE Performed By: #### 3 0310 #### [facility] [address] [facility] [place] [address], [facility] MCH (RBC) [Entitic mass] 30.2 pg Normal 27.0-33.0 [facility] Comment on above: Order Comment: RLQ P ERIHEPATIC FLUID DRAINAGE Performed By: #### 3 0310 #### [facility] [address] [place] [address], [facility] MCHC (RBC) [Mass/Vol] 31.9 g/dL Low 32.0-35.0 [facility] Comment on above: Order Comment: RLQ P ERIHEPATIC FLUID DRAINAGE Performed By: #### 3 0310 #### [facility] [address] [place] [id number], [facility] MCV (RBC) [Entitic vol] 94.8 fL Normal 82.0-98.0 [facility] Comment on above: Order Comment: RLQ P ERIHEPATIC FLUID DRAINAGE Performed By: #### 3 0310 #### [facility] [address] [place] [address], [facility] Monocytes (Bld) [#/Vol] 0.9 10*3/uL Normal 0.1-1.0 [facility] Comment on above: Order Comment: RLQ P ERIHEPATIC FLUID DRAINAGE Performed By: #### 3 0310 #### [facility] [address] [place] [id number], [facility] MONOS 5.7 % Normal 5.0-12.0 [facility] Comment on above: Order Comment: RLQ P ERIHEPATIC FLUID DRAINAGE Performed By: #### 3 0310 #### [facility] [address] [place] [address], [facility] Neutrophils/100 WBC (Bld) 80.1 % High 40.0-72.0 [facility] Comment on above: Order Comment: RLQ P ERIHEPATIC FLUID DRAINAGE Performed By: #### 3 0310 #### [facility] [address] [place] [address], [facility] Nucleated RBC/100 WBC (Bld) [Ratio] 0 % Normal 0-0 [facility] Comment on above: Order Comment: RLQ P ERIHEPATIC FLUID DRAINAGE Performed By: #### 3 0310 #### [facility] [address] [place] [id number], [place] PLAT CNT 521 10*3/uL High 150-400 The [facility] Comment on above: Order Comment: RLQ P ERIHEPATIC FLUID DRAINAGE Performed By: #### 3 0310 #### [facility] [address] [place] [address], [facility] RBC (Bld) [#/Vol] 2.48 10*6/uL Low 3.80-5.00 [facility] Comment on above: Order Comment: RLQ P ERIHEPATIC FLUID DRAINAGE Performed By: #### 3 0310 #### [address] [address], [facility] WBC (Bld) [#/Vol] 15.45 10*3/uL High 4.00-10.60 [facility] Comment on above: Order Comment: RLQ P ERIHEPATIC FLUID DRAINAGE Performed By: #### 3 0310 #### [facility] [address] [place] [address], [facility] CT ABDOMEN AND PELVIS W ORAL CONTRASTon 10-23-2021 CT ABDOMEN AND PELVIS W ORAL CONTRAST [facility] Department of Radiology [address] [place] [address] [id number] Patient Name: JULIA QUISPE : 1970 Sex: F Age: Race: White Pt. Location: [id number] Patient Status: I Ordered Date: 10/23/2021 4:05:00 [...] atelectasis, favored over mild pneumonia There is [id number] pericardial effusion Close follow-up is suggested to [...] structu (more content not included)... Normal [facility] Comment on above: Order Comment: Fluid Collection, distinguish colon from abscess for IR drain MAGNESIUM BLOODon 10-23-2021 Magnesium [Mass/Vol] 2.1 mg/dL Normal 1.9-2.7 [facility] Comment on above: Order Comment: No: D o not add to previous draw Performed By: #### 1 0070, 00715, 00093 #### [facility] [address] [facility] [place] [address], [facility] PHOSPHORUS BLOODon 2 Phosphate [Mass/Vol] 2.6 mg/dL Normal 2.5-5.0 [facility] Comment on above: Order Comment: No: D o not add to previous draw Performed By: #### 1 0070, 82619, 08066 #### [facility] [address] [place] [address], [facility] PROTHROMBIN TIMEon 2 INR Coag (PPP) [Relative time] 1.07 {INR} Normal 0.91-1.16 [facility] Comment on above: Order Comment: No: D [...] 1995;[id number]. Performed By: #### 8 5499 #### [facility] [address] PT Coag (PPP) [Time] 13.9 s Normal 12.3-14.8 [facility] Comment on above: Order Comment: No: D o not add to previous draw Result Comment: ALL RESULTS MUST BE INTERPRETED WITH RESPECT TO BLOOD DRAWING ARTIFACT OR DILUTION ERROR OF ANTICOAGULANT AT THE TIME OF SAMPLING. Performed By: #### 8 5499 #### [address] Cardiovascular Lab Reporton 07-23-2021 Cardiovascular Lab Report [facility] Patient Name: Julia Quispe MR #: [id number] [facility] Physician: Josias Ruiz MD Service Date: 07/21/2021 Department of Birthdate: 1970 Medicine Room #: CC Division of Cardiology Adult Cardiovascular Services [place] [address] Cardiovascular Laboratory Report EP STUDY AND AVNRT [...] t (more content not included)... Normal [facility] BASIC METABOLIC PANELon 06-28 Calcium [Mass/Vol] 9.3 mg/dL Normal 8.6-10.3 [facility] Comment on above: Performed By: #### 1 2500, 89759, 47451 #### [facility] [address] [place] [address], [facility] Chloride [Moles/Vol] 109 mmol/L High 98-107 The [facility] Comment on above: Performed By: #### 1 0, 16988, 39078 #### [facility] [address] [place] [address], [place] CO2 [Moles/Vol] 23 mmol/L Normal 21-31 [facility] Comment on above: Performed By: #### 1 0, 92465, 94940 #### [facility] [address] [place] [address], [place] Creatinine [Mass/Vol] 0.87 mg/dL Normal 0.60-1.20 [facility] Comment on above: Performed By: #### 1 0, 68436, 50647 #### [facility] [address] [place] [address], [place] GFR/1.73 sq M.predicted among blacks MDRD (S/P/Bld) [Vol rate/Area] mL/min/{1.73_m2} Normal >60 [facility] Comment on above: Performed By: #### 1 0, 61128, 72108 #### [facility] [address] [place] [address], [place] GFR/1.73 sq M.predicted among non-blacks MDRD (S/P/Bld) [Vol rate/Area] mL/min/{1.73_m2} Normal >60 [facility] Comment on above: Performed By: #### 1 0, 74291, 29909 #### [facility] [address] [place] [address], [place] Glucose [Mass/Vol] 97 mg/dL Normal 70-100 [facility] Comment on above: Performed By: #### 1 0, 58643, 95206 #### [facility] [address] [place] [address], [place] Potassium [Moles/Vol] 5.0 mmol/L Normal 3.5-5.1 [facility] Comment on above: Performed By: #### 1 0070, 65714, 73885 #### [facility] [address] [facility] [place] [address], [facility] Sodium [Moles/Vol] 140 mmol/L Normal 136-145 [facility] Comment on above: Performed By: #### 1 0070, 81025, 83901 #### [facility] [address] [place] [address], [facility] Urea nitrogen [Mass/Vol] 20 mg/dL Normal 7-25 [facility] Comment on above: Performed By: #### 1 0070, 35178, 15649 #### [facility] [address] [facility] [address], [facility] CBC W/DIFFon 07-21-2021 ABS IMM GRANS 0.0 10*3/uL Normal 0.0-0.2 The [facility] Comment on above: Performed By: #### 3 0310 #### [facility] [address] [facility] [address], [facility] ABS NEUTROPHILS 7.4 10*3/uL Normal 1.6-7.6 The [facility] Comment on above: Performed By: #### 3 0310 #### [facility] [address] [place] [address], [facility] Basophils (Bld) [#/Vol] 0.1 10*3/uL Normal 0.0-0.2 [facility] Comment on above: Performed By: #### 3 0310 #### [facility] [address] [place] [address], [facility] Basophils/100 WBC (Bld) 0.5 % Normal 0.0-1.0 [facility] Comment on above: Performed By: #### 3 0310 #### [facility] [address] [place] [address], [facility] Eosinophils (Bld) [#/Vol] 0.2 10*3/uL Normal 0.0-0.5 [facility] Comment on above: Performed By: #### 3 0310 #### [facility] [address] [place] [address], [facility] Eosinophils/100 WBC (Bld) 1.6 % Normal 0.0-6.0 [facility] Comment on above: Performed By: #### 3 0310 #### [facility] [address] [place] [address], [facility] Erythrocyte distribution width (RBC) [Ratio] 13.7 % Normal 11.5-15.0 [facility] Comment on above: Performed By: #### 3 0310 #### [facility] [address] [facility] [place] [address], [facility] Hematocrit (Bld) [Volume fraction] 44.8 % Normal 36.0-45.0 [facility] Comment on above: Performed By: #### 3 0310 #### [facility] [address] [facility] [place] [address], [facility] Hemoglobin (Bld) [Mass/Vol] 14.7 g/dL Normal 12.0-15.0 [facility] Comment on above: Performed By: #### 3 0310 #### [facility] [address] [facility] [place] [address], [facility] IMMATURE GRANS 0.2 % Normal 0.0-1.0 The [facility] Comment on above: Performed By: #### 3 0310 #### [facility] [address] [place] [id number], [facility] Lymphocytes (Bld) [#/Vol] 1.7 10*3/uL Normal 1.2-4.0 [facility] Comment on above: Performed By: #### 3 0310 #### [facility] [address] [place] [address], [facility] Lymphocytes/100 WBC (Bld) 17.2 % Low 20.0-45.0 [facility] Comment on above: Performed By: #### 3 0310 #### [facility] [address] [facility] [place] [address], [facility] MCH (RBC) [Entitic mass] 32.3 pg Normal 27.0-33.0 [facility] Comment on above: Performed By: #### 3 0310 #### [facility] [address] [place] [address], [facility] MCHC (RBC) [Mass/Vol] 32.8 g/dL Normal 32.0-35.0 [facility] Comment on above: Performed By: #### 3 0310 #### [facility] [address] [facility] [address], [facility] MCV (RBC) [Entitic vol] 98.5 fL High 82.0-98.0 [facility] Comment on above: Performed By: #### 3 0310 #### [facility] [address] [facility] [address], [facility] Monocytes (Bld) [#/Vol] 0.6 10*3/uL Normal 0.1-1.0 [facility] Comment on above: Performed By: #### 3 0310 #### [facility] [address] [place] [address], [facility] MONOS 6.1 % Normal 5.0-12.0 [facility] Comment on above: Performed By: #### 3 0310 #### [facility] [address] [facility] [address], [facility] Neutrophils/100 WBC (Bld) 74.4 % High 40.0-72.0 [facility] Comment on above: Performed By: #### 3 0310 #### [facility] [address] [place] [address], [facility] Nucleated RBC/100 WBC (Bld) [Ratio] 0 % Normal 0-0 [facility] Comment on above: Performed By: #### 3 0310 #### [facility] [address] [place] [address], [facility] PLAT CNT 291 10*3/uL Normal 150-400 [facility] Comment on above: Performed By: #### 3 0310 #### [facility] [address] [place] [address], [facility] RBC (Bld) [#/Vol] 4.55 10*6/uL Normal 3.80-5.00 The [facility] Comment on above: Performed By: #### 3 0310 #### [facility] [address] [facility] [place] [address], [facility] WBC (Bld) [#/Vol] 9.92 10*3/uL Normal 4.00-10.60 The [facility] Comment on above: Performed By: #### 3 0310 #### [facility] [address] Vital Signs Date Time Vital Sign Value Performing Clinician Facility 03-13-2025 15:42-0400 Body mass index (BMI) [Ratio] 30.11 kg/m2 Luis Angel Alvin DO Work Phone: [facility] 03-13-2025 15:42-0400 Body weight 77.11 kg Luis Angel Alvin DO Work Phone: [facility] 03-13-2025 15:42-0400 Diastolic blood pressure 92 mm[Hg] Luis Angel Alvin DO Work Phone: [facility] 03-13-2025 15:42-0400 Systolic blood pressure 142 mm[Hg] Luis Angel Alvin DO Work Phone: [facility] 11-22-2024 15:20-0400 Body mass index (BMI) [Ratio] 30.96 kg/m2 Luis Angel Alvin DO Work Phone: [facility] 11-22-2024 15:20-0400 Body weight 79.27 kg Luis Angel Alvin DO Work Phone: [facility] 03-07-2024 16:28-0400 Body mass index (BMI) [Ratio] 28.84 kg/m2 Luis Angel Alvin DO Work Phone: [facility] 03-07-2024 16:28-0400 Body weight 73.85 kg Luis Angel Alvin DO Work Phone: [facility] 03-07-2024 16:28-0400 Diastolic blood pressure 70 mm[Hg] Luis Angel Alvin DO Work Phone: [facility] 03-07-2024 16:28-0400 Systolic blood pressure 120 mm[Hg] Luis Angel Alvin DO Work Phone: [facility] 08-02-2023 15:42-0500 Body mass index (BMI) [Ratio] 26.57 kg/m2 Luis Angel Alvin DO Work Phone: [facility] 08-02-2023 15:42-0500 Body weight 68.04 kg Luis Angel Alvin DO Work Phone: [facility] 08-02-2023 15:42-0500 Diastolic blood pressure 80 mm[Hg] Luis Angel Alvin DO Work Phone: [facility] 08-02-2023 15:42-0500 Systolic blood pressure 138 mm[Hg] Luis Angel Alvin DO Work Phone: [facility] 12-06-2022 15:30-0400 Body height 162.56 cm Jacques Zavala Other Outline Other 12-06-2022 15:30-0400 Body mass index (BMI) [Ratio] 21.28 kg/m2 Jacques Zavala Other [facility] Other 12-06-2022 15:30-0400 Body weight 56.25 kg Jacques Zavala Other Out[facility] Other 06-12-2023 15:30-0400 Diastolic blood pressure 83 mm[Hg] Jacques Zavala Other Out[facility] Other 12-06-2022 15:30-0400 Systolic blood pressure 141 mm[Hg] Jacques Zavala Other Out[facility] Other 10-27-2022 11:30-0400 Body height 162.56 cm Jacques Zavala Other Out[facility] Other 10-27-2022 11:30-0400 Body mass index (BMI) [Ratio] 21.28 kg/m2 Jacques Zavala Other Out[facility] Other 10-27-2022 11:30-0400 Body weight 56.25 kg Jacques Zavala Other Outline Other 10-27-2022 11:30-0400 Diastolic blood pressure 84 mm[Hg] Jacques Zavala Other Outline Other 10-27-2022 11:30-0400 SaO2% (BldA) [Mass fraction] 97 % Jacques Zavala Other Out[facility] Other 10-27-2022 11:30-0400 Systolic blood pressure 120 mm[Hg] Jacques Zavala Other Outline Other Encounters Encounter Date Encounter Type Care Provider Facility Start: 03-13-2025 End: 03-13-2025 Periodic preventive med est patient 40-64yrs Luis Angel Alvin DO Work Phone: [facility] Comment on above: Well woman exam with routine gynecological exam; Encounter for screening mammogram for malignant neoplasm of breast; Postmenopausal state Start: 03-13-2025 End: 03-13-2025 Bamboo flowsheet Luis Angel Alvin DO Work Phone: [facility] Start: 03-13-2025 End: 03-13-2025 Bamboo flowsheet Luis Angel Alvin DO Work Phone: [facility] Start: 03-13-2025 End: 03-13-2025 Patient encounter procedure Luis Angel Alvin DO Work Phone: [facility] Start: 02-28-2025 End: 02-28-2025 Office outpatient visit 25 minutes Alissa Farooq DPM Work Phone: [facility] Comment on above: Ingrown toenail (Yzamin marvin Dx); Pain of toe of right foot Start: 02-28-2025 End: 02-28-2025 ambulatory ALISSA FAROOQ Not Available Start: 02-28-2025 End: 02-28-2025 Bamboo flowsheet Alissa Farooq DPM Work Phone: [facility] Start: 02-28-2025 End: 02-28-2025 Bamboo flowsheet Alissa Farooq DPM Work Phone: [facility] Start: 02-26-2025 ambulatory Janiya Matias Facili ty:[facility] Start: 02-26-2025 End: 02-26-2025 ambulatory Janiya Matias Facility:[facility] Start: 02-21-2025 End: 02-21-2025 ambulatory ALISSA FAROOQ Not Available Start: 02-19-2025 End: 02-19-2025 ambulatory Janiya Matias Facility:[facility] Start: 02-07-2025 End: 02-07-2025 ambulatory Janiya Matias Facility:[facility] Start: 01-30-2025 End: 01-30-2025 ambulatory Janiya Matias Facility:[facility] Start: 01-22-2025 End: 01-22-2025 ambulatory Janiya Matias Facility:[facility] Start: 01-17-2025 End: 01-17-2025 ambulatory Janiya Matias Facility:[facility] Start: 01-10-2025 End: 01-10-2025 ambulatory Seda Urias Facility:[facility] Start: 01-03-2025 End: 01-03-2025 ambulatory Janiya Juan Facility:[facility] Start: 01-01-2025 End: 01-01-2025 ambulatory Seda Urias Facility:[facility] Start: 12-25-2024 End: 12-25-2024 ambulatory Janiya Juan Facility:[facility] Start: 11-28-2024 End: 11-28-2024 ambulatory Janiya Juan Facility:[facility] Start: 11-22-2024 End: 11-22-2024 ambulatory ALISSA FAROOQ Not Available Start: 11-22-2024 End: 11-22-2024 Patient encounter procedure Luis Angel Alvin DO Work Phone: [facility] Comment on above: Encounter for survei llance of injectable contraceptive Start: 09-05-2024 End: 09-05-2024 ambulatory ALISSA FAROOQ Not Available Start: 06-13-2024 End: 06-13-2024 ambulatory ALISSA FAROOQ Not Available Start: 04-26-2024 End: 04-26-2024 ambulatory MD Jacques Zavala Work Phone: [facility] Work Phone: Start: 04-26-2024 End: 04-26-2024 Patient encounter procedure MD Jacques [facility]avala [facility] Work Phone: Start: 03-27-2024 End: 03-27-2024 ambulatory ALISSA FAROOQ Not Available Start: 03-07-2024 Non-patient / Non-visit MD Sophie Zavala [facility] Phone[facility] Work Phone: Start: 03-07-2024 End: 03-07-2024 Periodic preventive med est patient 40-64yrs Lius Angel Alvin DO Work Phone: [facility] Comment on above: Encounter for manage ment and injection of depo-Provera; Breast cancer screening by mammogram; Postmenopausal state Start: 03-07-2024 End: 03-07-2024 ambulatory LUIS ANGEL PORTILLOO Not Available Start: 03-07-2024 End: 03-07-2024 Bamboo flowsheet Luis Angel Alvin DO Work Phone: [facility] Start: 03-07-2024 End: 03-13-2024 Clinisync Result Encounter Luis Angel Alvin DO Work Phone: [facility] Unsolicited Start: 03-07-2024 End: 03-13-2024 Clinisync Result Encounter Lius Angel Alvin DO Work Phone: [facility] Unsolicited Start: 03-01-2024 End: 03-01-2024 ambulatory MD Jacques Zavala Work Phone: [facility] Work Phone: Start: 03-01-2024 End: 03-01-2024 Patient encounter procedure MD Jacques Zavala Work Phone: [facility] Work Phone: Start: 02-14-2024 End: 02-14-2024 ambulatory MD Jacques Zavala Work Phone: [facility] Work Phone: Start: 02-14-2024 End: 02-14-2024 Patient encounter procedure MD Jacques Zavala Work Phone: [facility] Work Phone: Start: 12-06-2023 End: 12-06-2023 ambulatory MD Jacques Zavala Work Phone: [facility] Work Phone: Start: 12-06-2023 End: 12-06-2023 Patient encounter procedure MD Jacques Zavala Work Phone: [facility] Work Phone: Start: 09-29-2023 End: 09-29-2023 ambulatory MD Jacques Zavala Work Phone: [facility] Work Phone: Start: 09-29-2023 End: 09-29-2023 Patient encounter procedure MD Jacques Zavala Work Phone: [facility] [address] Work Phone: Start: 09-16-2023 End: 09-16-2023 ambulatory MD Jacques Zavala Work Phone: [facility] Work Phone: Start: 09-16-2023 End: 09-16-2023 Patient encounter procedure MD Jacques Zavala Work Phone: [facility] [address] Work Phone: Start: 08-02-2023 End: 08-02-2023 Office outpatient visit 5 minutes Luis Angel Esquivel DO Work Phone: [facility] Comment on above: Encounter for manage ment and injection of depo-Provera Start: 07-29-2023 End: 07-29-2023 ambulatory MD Jacques Zavala Work Phone: [facility] Work Phone: Start: 07-29-2023 End: 07-29-2023 Patient encounter procedure MD Jacques Zavala Work Phone: [facility] [address] Work Phone: Start: 06-24-2023 End: 06-24-2023 ambulatory MD Jacques Zavala Work Phone: [facility] Work Phone: Start: 06-24-2023 End: 06-24-2023 Patient encounter procedure MD Jacques Zavala Work Phone: [facility] [address] Work Phone: Start: 06-22-2023 End: 06-22-2023 ambulatory Jacques Zavala Other Outline Other Start: 06-22-2023 Telephone encounter Jacques Zavala [facility] Start: 06-07-2023 End: 06-07-2023 ambulatory MD Jacques Zavala Work Phone: [facility] Work Phone: Start: 06-07-2023 End: 06-07-2023 Patient encounter procedure MD Jacques Zavala Work Phone: [facility] [address] Work Phone: Start: 05-24-2023 End: 05-24-2023 ambulatory MD Jacques Zavala Work Phone: [facility] Work Phone: Start: 05-24-2023 End: 05-24-2023 Patient encounter procedure MD Jacques Zavala Work Phone: [facility] [address] Work Phone: Start: 05-13-2023 End: 05-13-2023 ambulatory MD Jacques Zavala Work Phone: [facility] Work Phone: Start: 05-13-2023 End: 05-13-2023 Patient encounter procedure MD Jacques Zavala Work Phone: [facility] [address] Work Phone: Start: 12-08-2022 End: 12-08-2022 ambulatory Jacques Zavala Other Outline Other Start: 12-08-2022 Telephone encounter Jacques Zavala [facility] Start: 12-06-2022 End: 12-06-2022 ambulatory Jacques Zavala Other Outline Other Start: 12-06-2022 Office outpatient vi sit 15 minutes Jacques Zavala [facility] Start: 10-27-2022 Office outpatient vi sit 15 minutes Jacques Zavala [facility] Start: 10-27-2022 End: 10-28-[address] JACQUES ZAVALA [facility] Other Start: 09-28-2022 ambulatory ALESHA Turpin y:H1 Start: 05-07-2022 End: 05-08-[address] LUIS ANGEL ESQUIVEL . Facility: Start: 04-07-2022 Gynecological examination normal Jacques Zavala Other [employer] Other Start: 02-01-2022 End: 02-01-[address] LUIS ANGEL ESQUIVEL . Facility: Start: 11-05-2021 End: 11-07-2021 Evaluation and management of inpatient JACQUES ZAVALA Facility:[facility] Start: 10-23-2021 End: 10-28-2021 Evaluation and management of inpatient JACQUES ZAVALA Facility:[facility] Procedures Date Procedure Procedure Detail Performing Clinician Start: 11-22-2024 Urine test visual color cmprsn meths Luis Angel Alvin DO Work Phone: Start: 03-07-2024 IGP,APTIMA HPV,AGE GDLN Luis Angel Alvin DO Work Phone: Start: 03-01-2024 Plain X-ray of left elbow MD Jacques Zavala Work Phone: Start: 08-02-2023 Urine test visual color cmprsn meths Luis Angel Alvin DO Work Phone: Start: 01-29-2022 Screening for malign ant neoplasm of breast Jacques Zavala Other End: 04-11-2018 Contraception care education Jacques Zavala Other End: 05-07-2021 Depression screening Jacques Zavala Other Plan of Treatment Date Care Activity Detail Author Start: 03-17-2026 End: 03-17-2026 Patient encounter procedure 03/17/2026 8:30 AM EDT Procedure Visit [facility] Lyn [facility] [address] [place] [address] [place] [address] Luis Angel Esquivel, [address] [place] [address] [facility] Start: 05-16-2025 End: 05-16-2025 Clinical Support 05/16/2025 3:00 PM EST Clinical Support [facility] [address] [facility] [id number] [facility] Start: 04-16-2025 End: 04-16-2025 Patient encounter procedure 04/16/2025 3:30 PM EDT Office Visit [facility] [address] [place] [id number] Alissa Farooq DPM [address] [place] [address] [facility] Start: 03-13-2025 End: 03-13-2025 Patient encounter procedure [facility] Start: 03-13-2025 End: 03-13-2026 DXA Skeletal system Views for bone density DEXA bone density Imaging Routine Well woman exam with routine gynecological exam Postmenopausal state Expected: 03/13/2025 (Approximate), Expires: 03/13/2026 [facility] Comment on above: Expected: 03/13/2025 (Approximate), Expires: 03/13/2026 Start: 03-13-2025 End: 05-13-2026 MG Breast - bilateral Screening Bilateral screening mammogram Imaging Routine Well woman exam with routine gynecological exam Encounter for screening mammogram for malignant neoplasm of breast Expected: 03/13/2025, Expires: 05/13/2026 [facility] Work Phone: Comment on above: Expected: 03/13/2025 , Expires: 05/13/2026 Start: 02-28-2025 End: 02-28-2025 Patient encounter procedure 02/28/2025 3:15 PM EDT Office Visit [facility] [address] [place] [phone] Alissa Farooq, DPM [address] [facility] [address] [place] [address] [facility] [place] [facility] Comment on above: Arrived Start: 02-21-2025 End: 02-21-2025 Clinical Support 02/21/2025 3:00 PM EDT Clinical Support [facility] [address] [place] [address] [facility] Start: 03-27-2024 End: 03-27-2024 Clinical Support 03/27/2024 3:00 PM EDT Clinical Support [facility] [address] [place] [address] [facility] Start: 03-07-2024 End: 03-07-2024 Patient encounter procedure [facility] Comment on above: Arrived Start: 03-07-2024 End: 03-07-2025 DXA Skeletal system Views for bone density DEXA bone density Imaging Routine Postmenopausal state Expected: 03/07/2024 (Approximate), Expires: 03/07/2025 [facility] Comment on above: Expected: 03/07/2024 (Approximate), Expires: 03/07/2025 Start: 03-07-2024 End: 05-07-2025 MG Breast - bilateral Screening Bilateral screening mammogram Imaging Routine Breast cancer screening by mammogram Expected: 03/07/2024, Expires: 05/07/2025 [facility] Work Phone: Comment on above: Expected: 03/07/2024 , Expires: 05/07/2025 Start: 03-01-2024 Plain X-ray of left elbow XR elbow LT min 3V* [facility] Start: 03-01-2024 XR Elbow - left GE 3 Views [facility] Start: 10-25-2023 End: 10-25-2023 Clinical Support 10/25/2023 3:00 PM EDT Clinical Support [facility] [address] [place] [address] [facility] THIN PREP TIS PAP AN D HR HPV DNA THIN PREP TIS PAP AND HR HPV DNA Pathology and Cytology Routine Encounter for management and injection of depo-Provera Ordered: 03/07/2024 [facility] Comment on above: Ordered: 03/07/2024 THIN PREP TIS PAP AN D HR HPV DNA THIN PREP TIS PAP AND HR HPV DNA Pathology and Cytology Routine Well woman exam with routine gynecological exam Ordered: 03/13/2025 [facility] Comment on above: Ordered: 03/13/2025 Payers Date Payer Category Payer Unknown [id number] 2023 Self-pay [id number] 2023 Worker's Compensation [id number] 2022 Unknown [id number] 2017 Blue Cross Blue Shield 1.2.8 [id number]. [id number] 2017 Unknown [id number]. 1.13.693.2. 7.3.565166.315 2017 Unknown [id number] 1971 Unknown [id number] 2.16.840.1.696741.3.579.2. 647 1971 Unknown [id number] 2.16.840.1.528166.3.579.2. 647 1971 Unknown [id number] 2.16.840.1.107468.3.579.2. 593 1971 Unknown [id number] 2.16.840.1.635308.3.579.2. 593 1971 Unknown [id number] 2.16.840.1.650387.3.579.2. 593 1971 Unknown [id number] 2.16.840.1.270736.3.579.2. 593 1971 Unknown [id number] 2.16.840.1.633454.3.579.2. 1258 1971 Unknown [id number] 2.16840.1.357993.3.579.2. 1258 1971 Unknown [id number] 2.16.840.1.352684.3.579.2. 1258 1971 Unknown [id number] 2.16840.1.121121.3.579.2. 1258 1971 Unknown [id number] 2.16840.1.354735.3.579.2. 1258 1971 Unknown [id number] 2.840.1.312798.3.579.2. 1258 1971 Unknown [id number] 2.16840.1.856542.3.579.2. 1258 1971 Unknown [id number] 2.840.1.772645.3.579.2. 1971 Unknown [id number] 2.840.1.099133.3.579.2. 1971 Unknown [id number] 2.840.1.687693.3.579.2. 1971 Unknown [id number] 2.16840.1.003215.3.579.2. 1971 Unknown [id number] 2.840.1.320460.3.579.2. 1971 Unknown [id number] 2.16840.1.350544.3.579.2. 1971 Unknown [id number] 2.16840.1.404977.3.579.2. 1971 Unknown [id number] 2.16.840.1.097533.3.579.2. 1971 Unknown [id number] 2.16840.1.194536.3.579.2. 1971 Unknown [id number] 2.16.840.1.387361.3.579.2. 718 1971 Unknown [id number] 2.16.840.1.830759.3.579.2. 718 1971 Unknown [id number] 2.16.840.1.768886.3.579.2. 718 1959 Blue Cross Blue Shield [id number] 2.16.840.1.740331.19 1959 Unknown [id number] 1959 Unknown [id number] Unknown [id number] 2.16.840.1.446073.3.579.2. 531 Unknown [id number] 2.16.840.1.586581.3.579.2. 531 Unknown [id number] 2.16.840.1.418247.3.579.2. 531 Unknown [id number] 2.16.840.1.191730.3.579.2. 531 Worker's Compensation [employer] Misc [id number] Social History Date Type Detail Facility Unknown if ever smoked Outline Other Start: 07-25-2023 End: 03-13-2025 Sex Assigned At [employer] Other Start: 05-24-2021 Tobacco smoking status RUST Current some day smoker [facility] Start: 1970 Sex Assigned At Female [facility] Start: 01-06-2023 End: 01-10-2024 Tobacco smoking status RUST Ex-smoker [facility] End: 10-11-2009 History of tobacco use Current smoker [facility] End: 10-11-2009 History of tobacco use Cigarette Smoker [facility] Start: 01-06-2023 End: 01-10-2024 Tobacco use and exposure Smokeless tobacco non-user [facility] Start: 08-02-2023 End: 03-13-2025 Alcohol intake Current drinker of alcohol (finding) [facility] Start: 07-25-2023 End: 03-13-2025 History of Social function [facility] Start: 12-06-2022 Tobacco Comment 5-10 years sin ce last smoked [facility] Start: 12-06-2022 Alcohol Comment 3-4 drinks les s than monthly in the past year, Caffeine intake: 1-2 cups per day coffee [facility] Start: 11-30-2022 Gender identity Identifies as female gender (finding) [facility] Clinical Notes 09-25-2021 to 03-13-2025 Nikole Belcher, BRICK EXTRUDER OPERATOR - 03/13/2025 3:00 PM EDTCcraig Farooq DPM - 02/28/2025 3:15 PM EDUnruly Oliver MA - 11/22/2024 3:00 PM EDTNikole Belcher, KAITLIN - 03/07/2024 4:00 PM EDT Note Date & Type Note Facility 03-13-2025 History of Presen t illness Narrative Reason for Appointment: Patient ID: Julia Quispe is a 54 y.o. female who presents [...] abnormal findings Factor 5 Leiden mutation, heterozygous ([facility]) H/O blood clots Lower leg DVT (deep venous thromboembolism), acute, left (HCC) Menopause ovarian failure October 2022 Paroxysmal supraventricular tachycardia (HCC) Post menopausal syndrome Situational mixed anxiety and depressive disorder SVT (supraventricular tachycardia) ([facility]) Social History Tobacco Use Smoking status: Former [...] Heart disease Mother Mardelle Diabetes Maternal Grandmother Sepideh aguilera SURGICAL HISTORY Past Surgical History: Procedure Laterality Date ABDOMINAL SURGERY 01/29/04 APPENDECTOMY 09/2021 SECTION, LOW TRANSVERSE x2 [address] GUIDED IMAGING FOR ABSCESS DRAIN 11/05/2021 CT GUID[facility] OTHER SURGICAL HISTORY 1994 tendon laceration [...] nursing note reviewed. Exam conducted with a special agent present. Vitals: Estimated body mass index is 30.11 kg/m as calculated from the following: Height [...] them. Patient can also view results via [employer]. I reinforced importance of condom use for [...] and avoiding tobacco and excessive alcohol. Discussed purpose of DEXA in assessing fracture risk and monitoring bone density. Patient advised results will be reviewed upon completion and next steps discussed as needed. Follow Up: Patient is to return to our office in one year for annual exam unless needed otherwise. Documented by Nikole Belcher LPN on behalf of: Luis Angel Esquivel DO documented in this encounter [facility] 02-28-2025 History of Presen t illness Narrative Images from the original note were not included. HPI: Ingrown Toenail under Podiatric consultations: Patient presents to the clinic c/o painful ingrown toenail on the right great toe. This has been present for the past 3 weeks. There is redness and/or drainage to the area. Patient has pain along the affected nail border with shoe gear and pressure. [...] noted to the medial border of the right hallux nail. There is pain noted with pressure [...] future. RTC: prn. documented in this encounter [facility] 02-20-2025 Note Radiology Sclerotherapy Sclerotherapy is a procedure that is done to make varicose veins and spider veins look better and it helps to relieve aching, swelling, cramping, and pain in the legs. Varicose veins are veins that have become enlarged, bulging, and twisted due to a damaged valve that causes blood to collect (pool) in the veins. Spider veins are small varicose veins. Sclerotherapy is usually done on the legs where varicose and spider veins occur most of the time. Sclerotherapy usually works best for smaller spider and varicose veins. This procedure involves putting a chemical directly into the lining of the vein, causing it to swell and stick together. Over time, the vessel turns into scar tissue that fades from view. You may need more than one treatment to close a vein all the way. The number of veins treated in one session depends on the size and location of the veins, and on your overall medical condition. Tell a health care provider about: ? Any allergies you have. ? All medicines you are taking, including vitamins, herbs, eye drops, creams, and esql-htm-apvbmmo medicines. ? Any bleeding problems you have. ? Any surgeries you have had. ? Any medical conditions you have. ? Whether you are or may be . What are the risks? Your health care provider will talk with you about risks. These may include: ? Infection. ? Bleeding or blood clots. ? Allergic reactions to medicines or to the chemicals being used, which are called sclerosing agents. ? Larger treated veins becoming lumpy or hard. This may last for several months before getting better. ? Small sores (ulcers) forming at the injection site. ? Red streaking in the groin area or bruising around the injection site. ? Brown lines or spots at the injection site. These usually disappear within 3 to 6 months, but in rare cases they can be permanent. What happens before the procedure? Medicines Ask your health care provider about: ? Changing or stopping your regular medicines. These include any diabetes medicines or blood thinners you take. ? Taking medicines such as aspirin and ibuprofen. These medicines can thin your blood. Do not take them unless your health care provider tells you to. ? Taking nzfw-svl-poinulf medicines, vitamins, herbs, and supplements. Tests ? You may have an ultrasound of the affected area to check for blood clots and to check blood flow. ? In rare cases, you may have an X-ray procedure to check how blood flows through your veins (angiogram). For an angiogram, a dye is injected to highlight your veins on X-rays. General instructions ? Do not use lotions or creams on your legs before the procedure unless your health care provider approves. ? Follow instructions from your health care provider about what you may eat and drink. ? Do not use any products that contain nicotine or tobacco before the procedure. These products include cigarettes, chewing tobacco, and vaping devices, such as e-cigarettes. If you need help quitting, ask your health care provider. ? Ask your health care provider what steps will be taken to help prevent infection. These steps may include: ? Removing hair at the injection site. ? Washing skin with a soap that kills germs. What happens during the procedure? ? The treatment area will be cleaned. ? A small, thin needle is used to inject a chemical (sclerosant) into your varicose or spider veins. The sclerosant will irritate the lining of the vein and cause the vein to close below where the needle was put in. You may feel some stinging, burning, or irritation. ? The injection may be repeated for more than one varicose or spider vein. ? After the procedure, the area around where the needle was put in will be wrapped with elastic bandages. The procedure may vary among health care providers and hospitals. What can I expect after the procedure? ? Your blood pressure, heart rate, breathing rate, and blood oxygen level will be monitored until you leave the hospital or clinic. ? The area around the injection site will be wrapped with elastic bandages. If there is bleeding, the bandages may be changed. ? After the treatment, you will be able to drive yourself home. ? Wear compression stockings as told by your health care provider. These stockings help to prevent blood clots and reduce swelling in your legs. Contact a health care provider if: ? You have more redness, swelling, or pain around any injection sites. ? You have more fluid or blood coming from any injection sites. ? Any injection sites feel warm to the touch. ? You have pus or a bad smell coming from any injection sites. ? You have a fever. Get help right away if: ? You have leg pain that gets worse when you walk. ? You have redness or swelling in your leg that is getting worse. ? You have trouble breathing. ? You have chest pain. These symptoms may be an emergency. Get help right away. Call 911. (more content not included)... [facility] 02-19-2025 Note PROCEDURE: US Inject ion Varicose Vein Multiple HISTORY: Varicose veins of bilateral lower extremities with pain Pre-operative Diagnosis: CEAP class C3 venous insufficiency with pain, tenderness, edema and incompetent left GSV branch saphenous vein(s), chronic venous insufficiency left leg secondary to venous incompetence Post-operative Diagnosis: CEAP class C3 venous insufficiency with pain, tenderness, edema and incompetent left GSV branch saphenous vein(s), chronic venous insufficiency left leg secondary to venous incompetence Procedure Performed: 1. Ultrasound-guided microfoam chemical ablation with Varithenaregistered. 2. Intraoperative ultrasound guidance Physician: Janiya Matias M.D. Anesthesia: None INDICATION : 54 year old female. Symptoms including lower extremity swelling, dilated bulging veins, heaviness, aching for many years despite conservative medical therapy including medical compression stockings, exercise and analgesics. Prior procedures include endovenous laser ablation, microfoam chemical ablation. Multiple incompetent varicosities of the left leg. Duplex scan showed reflux and enlarged diameters up to 4 mm. The patient underwent informed consent including management options where the complications of infection, bleeding, pain, and skin injury were discussed. Particular attention was spent discussing thrombus extension and deep vein thrombosis as well as the possibility of pulmonary embolus and treatment with oral or injectable blood thinners. PROCEDURE: The patient walked to the procedure room. All applicable staff donned appropriate apparel. A procedure timeout was performed to confirm correct patient, correct extremity, correct procedure, and correct room set-up including presence of all applicable supplies, devices, and drugs. A duplex ultrasound, performed by myself confirmed the location and incompetence of branch saphenous varicosities and their course was marked on the skin together with the dilated tributaries. The extent of treatment of the vein and the associated varicosities was determined through ultrasound mapping. The skin was prepped and then punctured with a butterfly needle and advanced under ultrasound guidance. The Varithenaregistered canister was activated and the canister was primed and purged as required in the instructions for use. Varithenaregistered was drawn into a sterile syringe. Varithenaregistered was slowly administered at 0.5-1.0 cc/second with close observation by ultrasound of its course in the vessels. Total volume utilized was: 10 mL (7 mL into a 4 mm varicosity distal left GSV; 3 mL into a 3 mm varicosity mid medial upper left leg GSV.. Following administration of Varithenaregistered the leg was elevated and the patient was asked to repeatedly dorsiflex the ankle to limit flow of Varithenaregistered into perforating veins. Once appropriate spasm had been confirmed in the treated veins, the vascular catheter was removed from the leg and light pressure was applied over the puncture site for hemostasis. The common femoral and deep superficial veins were then evaluated for flow and compressibility prior to dressing placement. The lower extremity was kept elevated at 45 degrees above the horizontal and cording material was applied over the saphenous segments and tributaries to allow for eccentric compression over the target vessels including the targeted saphenous vein(s). A multilayer dressing was applied consisting of foam pads, coban and thigh-high 20-30 mm Hg compression elastic support hose were placed on the patient. The leg was lowered only after compression had been applied and the patient was immediately ambulatory. The patient ambulated 10 minutes under supervision and was without apparent concerns at time of release. Post-care instructions include advising patient to keep post-treatment bandages in place and dry for 48 hours, avoid extended periods of inactivity, avoid heavy exercise for one week, wear compression stockings on the treated leg continuously for two weeks, to walk daily for 10 minutes over the next month. The patient was instructed to take an anti-inflammatory medicine as needed and to follow up for color duplex scan of the Saphenous veins, the treated branch saphenous varicosities, the adjacent deep veins, and additional treatment within 7 days. PERSONNEL: Winston Liz RN Final Dictated by: Janiya Matias MD Dictated DT/TM: 02/20/25 6:00 Signed (Electronic Signature): Janiya Matias MD 02/20/25 6:01 am Technologist: [facility] 02-06-2025 Note Radiology Sclerotherapy Sclerotherapy is a procedure that is done to make varicose veins and spider veins look better and it helps to relieve aching, swelling, cramping, and pain in the legs. Varicose veins are veins that have become enlarged, bulging, and twisted due to a damaged valve that causes blood to collect (pool) in the veins. Spider veins are small varicose veins. Sclerotherapy is usually done on the legs where varicose and spider veins occur most of the time. Sclerotherapy usually works best for smaller spider and varicose veins. This procedure involves putting a chemical directly into the lining of the vein, causing it to swell and stick together. Over time, the vessel turns into scar tissue that fades from view. You may need more than one treatment to close a vein all the way. The number of veins treated in one session depends on the size and location of the veins, and on your overall medical condition. Tell a health care provider about: ? Any allergies you have. ? All medicines you are taking, including vitamins, herbs, eye drops, creams, and ispw-qic-yychttt medicines. ? Any bleeding problems you have. ? Any surgeries you have had. ? Any medical conditions you have. ? Whether you are or may be . What are the risks? Your health care provider will talk with you about risks. These may include: ? Infection. ? Bleeding or blood clots. ? Allergic reactions to medicines or to the chemicals being used, which are called sclerosing agents. ? Larger treated veins becoming lumpy or hard. This may last for several months before getting better. ? Small sores (ulcers) forming at the injection site. ? Red streaking in the groin area or bruising around the injection site. ? Brown lines or spots at the injection site. These usually disappear within 3 to 6 months, but in rare cases they can be permanent. What happens before the procedure? Medicines Ask your health care provider about: ? Changing or stopping your regular medicines. These include any diabetes medicines or blood thinners you take. ? Taking medicines such as aspirin and ibuprofen. These medicines can thin your blood. Do not take them unless your health care provider tells you to. ? Taking mzar-mbh-kvrplmd medicines, vitamins, herbs, and supplements. Tests ? You may have an ultrasound of the affected area to check for blood clots and to check blood flow. ? In rare cases, you may have an X-ray procedure to check how blood flows through your veins (angiogram). For an angiogram, a dye is injected to highlight your veins on X-rays. General instructions ? Do not use lotions or creams on your legs before the procedure unless your health care provider approves. ? Follow instructions from your health care provider about what you may eat and drink. ? Do not use any products that contain nicotine or tobacco before the procedure. These products include cigarettes, chewing tobacco, and vaping devices, such as e-cigarettes. If you need help quitting, ask your health care provider. ? Ask your health care provider what steps will be taken to help prevent infection. These steps may include: ? Removing hair at the injection site. ? Washing skin with a soap that kills germs. What happens during the procedure? ? The treatment area will be cleaned. ? A small, thin needle is used to inject a chemical (sclerosant) into your varicose or spider veins. The sclerosant will irritate the lining of the vein and cause the vein to close below where the needle was put in. You may feel some stinging, burning, or irritation. ? The injection may be repeated for more than one varicose or spider vein. ? After the procedure, the area around where the needle was put in will be wrapped with elastic bandages. The procedure may vary among health care providers and hospitals. What can I expect after the procedure? ? Your blood pressure, heart rate, breathing rate, and blood oxygen level will be monitored until you leave the hospital or clinic. ? The area around the injection site will be wrapped with elastic bandages. If there is bleeding, the bandages may be changed. ? After the treatment, you will be able to drive yourself home. ? Wear compression stockings as told by your health care provider. These stockings help to prevent blood clots and reduce swelling in your legs. Contact a health care provider if: ? You have more redness, swelling, or pain around any injection sites. ? You have more fluid or blood coming from any injection sites. ? Any injection sites feel warm to the touch. ? You have pus or a bad smell coming from any injection sites. ? You have a fever. Get help right away if: ? You have leg pain that gets worse when you walk. ? You have redness or swelling in your leg that is getting worse. ? You have trouble breathing. ? You have chest pain. These symptoms may be an emergency. Get help right away. Call 911. (more content not included)... [facility] 01-30-2025 Note PROCEDURE: US Inject ion Varicose Vein Multiple COMPARISON: None. HISTORY: Varicose veins of bilateral lower extremities with pain Pre-operative Diagnosis: CEAP class C3 venous insufficiency with pain, tenderness, edema and incompetent right great saphenous vein and saphenous tributaries/varicose veins, chronic venous insufficiency right leg secondary to venous incompetence Post-operative Diagnosis: CEAP class C3 venous insufficiency with pain, tenderness, edema and incompetent right great saphenous vein and saphenous tributaries/varicose veins, chronic venous insufficiency right leg secondary to venous incompetence Procedure Performed: 1. Ultrasound-guided microfoam chemical ablation with Varithenaregistered 2. Intraoperative ultrasound guidance Anesthesia: None Indications for Procedure: 54-year-old female who presents with a long history of lower extremity pain and swelling. The patient failed conservative medical therapy including medical compression stockings, exercise and analgesics. Prior procedures include endovenous laser ablation. Multiple incompetent varicosities of the right leg. Duplex scan showed reflux and enlarged diameters up to 5 mm. The patient underwent informed consent including management options where the complications of infection, bleeding, pain, and skin injury were discussed. Particular attention was spent discussing thrombus extension and deep vein thrombosis as well as the possibility of pulmonary embolus and treatment with oral or injectable blood thinners. Procedure: The patient walked to the procedure room. All applicable staff donned appropriate apparel. A procedure timeout was performed to confirm correct patient, correct extremity, correct procedure, and correct room set-up including presence of all applicable supplies, devices, and drugs. A duplex ultrasound, performed by myself confirmed the location and incompetence of branch saphenous varicosities and their course was marked on the skin together with the dilated tributaries. The extent of treatment of the vein and the associated varicosities was determined through ultrasound mapping. The skin was prepped and then punctured with a butterfly needle and advanced under ultrasound guidance. The Varithenaregistered canister was activated and the canister was primed and purged as required in the instructions for use. Varithenaregistered was drawn into a sterile syringe. Following injections were made: 5 cc injected into a 5 mm varicose vein, tributary of the right great saphenous vein 1 cc injected into a 3 mm varicose vein right lateral distal thigh 3 cc injected into a 4 mm varicose vein lateral mid calf Varithenaregistered was slowly administered at 0.5-1.0 cc/second with close observation by ultrasound of its course in the vessels. Total volume utilized was: 9 cc. Following administration of Varithenaregistered the leg was elevated and the patient was asked to repeatedly dorsiflex the ankle to limit flow of Varithenaregistered into perforating veins. Once appropriate spasm had been confirmed in the treated veins, the vascular catheter was removed from the leg and light pressure was applied over the puncture site for hemostasis. The common femoral and deep superficial veins were then evaluated for flow and compressibility prior to dressing placement. The lower extremity was kept elevated at 45 degrees above the horizontal and cording material was applied over the saphenous segments and tributaries to allow for eccentric compression over the target vessels including the targeted saphenous vein(s). A multilayer dressing was applied consisting of foam pads, coban and thigh-high 20-30 mm Hg compression elastic support hose were placed on the patient. The leg was lowered only after compression had been applied and the patient was immediately ambulatory. The patient ambulated 10 minutes under supervision and was without apparent concerns at time of release. Post-care instructions include advising patient to keep post-treatment bandages in place and dry for 48 hours, avoid extended periods of inactivity, avoid heavy exercise for one week, wear compression stockings on the treated leg continuously for two weeks, to walk daily for 10 minutes over the next month. The patient was instructed to take an anti-inflammatory medicine as needed and to follow up for color duplex scan of the Saphenous veins, the treated branch saphenous varicosities, the adjacent deep veins, and additional treatment within 7 days. PERSONNEL: Winston Liz RN Final Dictated by: Seda Urias MD Dictated DT/TM: 01/30/25 4:11 Signed (Electronic Signature): Seda Urias MD 01/30/25 4:13 pm Technologist: [facility] 01-21-2025 Note Radiology Sclerotherapy Sclerotherapy is a procedure that is done to make varicose veins and spider veins look better and it helps to relieve aching, swelling, cramping, and pain in the legs. Varicose veins are veins that have become enlarged, bulging, and twisted due to a damaged valve that causes blood to collect (pool) in the veins. Spider veins are small varicose veins. Sclerotherapy is usually done on the legs where varicose and spider veins occur most of the time. Sclerotherapy usually works best for smaller spider and varicose veins. This procedure involves putting a chemical directly into the lining of the vein, causing it to swell and stick together. Over time, the vessel turns into scar tissue that fades from view. You may need more than one treatment to close a vein all the way. The number of veins treated in one session depends on the size and location of the veins, and on your overall medical condition. Tell a health care provider about: ? Any allergies you have. ? All medicines you are taking, including vitamins, herbs, eye drops, creams, and jddq-mkn-ezvrawg medicines. ? Any bleeding problems you have. ? Any surgeries you have had. ? Any medical conditions you have. ? Whether you are or may be . What are the risks? Your health care provider will talk with you about risks. These may include: ? Infection. ? Bleeding or blood clots. ? Allergic reactions to medicines or to the chemicals being used, which are called sclerosing agents. ? Larger treated veins becoming lumpy or hard. This may last for several months before getting better. ? Small sores (ulcers) forming at the injection site. ? Red streaking in the groin area or bruising around the injection site. ? Brown lines or spots at the injection site. These usually disappear within 3 to 6 months, but in rare cases they can be permanent. What happens before the procedure? Medicines Ask your health care provider about: ? Changing or stopping your regular medicines. These include any diabetes medicines or blood thinners you take. ? Taking medicines such as aspirin and ibuprofen. These medicines can thin your blood. Do not take them unless your health care provider tells you to. ? Taking mqsp-fwl-lzrejcg medicines, vitamins, herbs, and supplements. Tests ? You may have an ultrasound of the affected area to check for blood clots and to check blood flow. ? In rare cases, you may have an X-ray procedure to check how blood flows through your veins (angiogram). For an angiogram, a dye is injected to highlight your veins on X-rays. General instructions ? Do not use lotions or creams on your legs before the procedure unless your health care provider approves. ? Follow instructions from your health care provider about what you may eat and drink. ? Do not use any products that contain nicotine or tobacco before the procedure. These products include cigarettes, chewing tobacco, and vaping devices, such as e-cigarettes. If you need help quitting, ask your health care provider. ? Ask your health care provider what steps will be taken to help prevent infection. These steps may include: ? Removing hair at the injection site. ? Washing skin with a soap that kills germs. What happens during the procedure? ? The treatment area will be cleaned. ? A small, thin needle is used to inject a chemical (sclerosant) into your varicose or spider veins. The sclerosant will irritate the lining of the vein and cause the vein to close below where the needle was put in. You may feel some stinging, burning, or irritation. ? The injection may be repeated for more than one varicose or spider vein. ? After the procedure, the area around where the needle was put in will be wrapped with elastic bandages. The procedure may vary among health care providers and hospitals. What can I expect after the procedure? ? Your blood pressure, heart rate, breathing rate, and blood oxygen level will be monitored until you leave the hospital or clinic. ? The area around the injection site will be wrapped with elastic bandages. If there is bleeding, the bandages may be changed. ? After the treatment, you will be able to drive yourself home. ? Wear compression stockings as told by your health care provider. These stockings help to prevent blood clots and reduce swelling in your legs. Contact a health care provider if: ? You have more redness, swelling, or pain around any injection sites. ? You have more fluid or blood coming from any injection sites. ? Any injection sites feel warm to the touch. ? You have pus or a bad smell coming from any injection sites. ? You have a fever. Get help right away if: ? You have leg pain that gets worse when you walk. ? You have redness or swelling in your leg that is getting worse. ? You have trouble breathing. ? You have chest pain. These symptoms may be an emergency. Get help right away. Call 911. (more content not included)... [facility] 01-16-2025 Note Procedures Endovenous Ablation, Care After The following information offers guidance on how to care for yourself after your procedure. Your health care provider may also give you more specific instructions. If you have problems or questions, contact your health care provider. What can I expect after the procedure? After the procedure, it is common to have: ? Bruising. ? Tenderness. Follow these instructions at home: Incision care ? Follow instructions from your health care provider about how to take care of your incision. Make sure you: ? Wash your hands with soap and water for at least 20 seconds before and after you change your bandage (dressing). If soap and water are not available, use hand pondman. ? Change your dressing as told by your health care provider. ? Follow instructions from your health care provider about when you should remove your dressing. ? Check your incision area every day for signs of infection. Check for: ? Redness, swelling, or pain. ? Fluid or blood. ? Warmth. ? Pus or a bad smell. ? Keep the dressing dry until your health care provider says it can be removed. Activity ? Avoid sitting for a long time without moving. Get up to take short walks every 1?2 hours. This is important to improve blood flow. Ask for help if you feel weak or unsteady. ? Rest as told by your health care provider. ? Do exercises as told by your health care provider. ? Return to your normal activities as told by your health care provider. Ask your health care provider what activities are safe for you. Driving ? If you were given a sedative during the procedure, it can affect you for several hours. Do not drive or operate machinery until your health care provider says that it is safe. ? Ask your health care provider if the medicine prescribed to you requires you to avoid driving or using machinery. General instructions ? Raise (elevate) your legs above the level of your heart while you are sitting or lying down. ? Take ccif-ilb-xqbsoeq and prescription medicines only as told by your health care provider. ? Do not take long car trips or travel by air until your health care provider has approved. ? Wear compression stockings as told by your health care provider. These stockings help to prevent blood clots and reduce swelling in your legs. ? Do not use any products that contain nicotine or tobacco. These products include cigarettes, chewing tobacco, and vaping devices, such as e-cigarettes. These can delay incision healing after the procedure. If you need help quitting, ask your health care provider. ? Keep all follow-up visits. This is important. Contact a health care provider if you have: ? A fever. ? More redness, swelling, or pain at the site of your incision. ? Fluid or blood coming from your incision. ? Warmth at the incision area. ? Pus or a bad smell coming from your incision. Get help right away if: ? You notice red streaks coming from the incision. ? You develop nausea or vomiting. ? You have trouble breathing. ? You develop chest pain. Summary ? Follow instructions from your health care provider about how to take care of your incision. ? Avoid sitting for a long time without moving. Get up to take short walks every 1?2 hours. ? Wear compression stockings as told by your health care provider. These stockings help to prevent blood clots and reduce swelling in your legs. ? Contact a health care provider if you have more redness, swelling, or pain at the site of your incision. ? Keep all follow-up visits. This is important. This information is not intended to replace advice given to you by your health care provider. Make sure you discuss any questions you have with your health care provider. Document Revised: 11/19/2021 Document Reviewed: 11/19/2021 [employer] Patient Education ? 2024 [employer]. [facility] 01-09-2025 Note Procedures Endovenous Ablation Endovenous ablation is a procedure that seals off an abnormally enlarged leg vein (varicose vein). This procedure uses heat from radiofrequency waves or a laser to close off the affected vein. This procedure leaves the vein in place, so there is minimal pain and bruising. Closing off the vein can help reduce symptoms by preventing the pooling of blood that causes varicose veins. This procedure may be done if the vein is causing pain, swelling, sores on the skin (ulcers), or skin discoloration. Tell a health care provider about: ? Any allergies you have. ? All medicines you are taking, including vitamins, herbs, eye drops, creams, and tkvg-eaz-juzpdpz medicines. ? Any problems you or family members have had with anesthetic medicines. ? Any bleeding problems you have. ? Any surgeries you have had. ? Any medical conditions you have or have had. ? Whether you are or may be . What are the risks? Generally, this is a safe procedure. However, problems may occur, including: ? Infection. ? Bleeding. ? Allergic reactions to medicines. ? Damage to nearby structures. ? Numbness or tingling along the leg. This is uncommon, and it is usually temporary. ? Vein swelling. This is usually temporary. ? Blood clots that form in a deep vein of the leg (deep vein thrombosis, or DVT) and can travel to the lungs (pulmonary embolism, or PE). This is very rare. What happens before the procedure? When to stop eating and drinking Follow instructions from your health care provider about what you may eat and drink before your procedure. These may include: ? 8 hours before your procedure ? Stop eating most foods. Do not eat meat, fried foods, or fatty foods. ? Eat only light foods, such as toast or crackers. ? All liquids are okay except energy drinks and alcohol. ? 6 hours before your procedure ? Stop eating. ? Drink only clear liquids, such as water, clear fruit juice, black coffee, plain tea, and sports drinks. ? Do not drink energy drinks or alcohol. ? 2 hours before the procedure ? Stop drinking all liquids. ? You may be allowed to take medicines with small sips of water. If you do not follow your health care provider's instructions, your procedure may be delayed or canceled. Medicines Ask your health care provider about: ? Changing or stopping your regular medicines. This is especially important if you are taking diabetes medicines or blood thinners. ? Taking medicines such as aspirin and ibuprofen. These medicines can thin your blood. Do not take these medicines unless your health care provider tells you to take them. ? Taking kbaj-rlu-mtwfevw medicines, vitamins, herbs, and supplements. General instructions ? You may have blood tests to make sure that your blood can clot normally. ? Do not use any products that contain nicotine or tobacco for at least 4 weeks before the procedure. These products include cigarettes, chewing tobacco, and vaping devices, such as e-cigarettes. If you need help quitting, ask your health care provider. ? Plan to have a responsible adult take you home from the hospital or clinic. ? If you will be going home right after the procedure, plan to have a responsible adult care for you for the time you are told. This is important. ? Ask your health care provider what steps will be taken to help prevent infection. These may include: ? Removing hair at the procedure site. ? Washing skin with a germ-killing soap. What happens during the procedure? ? You will lie on an exam table. ? An IV will be inserted into one of your veins. ? You will be given one or more of the following: ? A medicine to help you relax (sedative). ? A medicine to numb the area (local anesthetic). ? A medicine to make you fall asleep (general anesthetic). ? Your health care provider will use an imaging tool that uses sound waves (ultrasound) to show images of your leg veins and to mehul the skin over the target treatment vein. ? A small incision will be made near the area that will be treated. A thin tube (catheter) will be slipped through the incision and into the vein. ? Your health care provider will inject a solution of salt water and anesthetic agent along the length of the vein to be treated. ? Electrodes or laser fibers will be passed through the catheter and into the vein. ? Radiofrequency or laser energy will be sent through the electrodes or laser fibers to burn the vein. This seals off the vein. ? The electrodes, laser fibers, and catheter will be removed from the vein. ? A bandage (dressing) will be placed over the incision. The procedure may vary among health care providers and hospitals. What happens after the procedure? ? Your blood pressure, heart rate, breathing rate, and blood oxygen level may be monitored until you leave the hospital or clinic. ? You may have to wear compression stockings. These stockings help (more content not included)... [facility] 01-02-2025 Note Procedures Endovenous Ablation, Care After The following information offers guidance on how to care for yourself after your procedure. Your health care provider may also give you more specific instructions. If you have problems or questions, contact your health care provider. What can I expect after the procedure? After the procedure, it is common to have: ? Bruising. ? Tenderness. Follow these instructions at home: Incision care ? Follow instructions from your health care provider about how to take care of your incision. Make sure you: ? Wash your hands with soap and water for at least 20 seconds before and after you change your bandage (dressing). If soap and water are not available, use hand pondman. ? Change your dressing as told by your health care provider. ? Follow instructions from your health care provider about when you should remove your dressing. ? Check your incision area every day for signs of infection. Check for: ? Redness, swelling, or pain. ? Fluid or blood. ? Warmth. ? Pus or a bad smell. ? Keep the dressing dry until your health care provider says it can be removed. Activity ? Avoid sitting for a long time without moving. Get up to take short walks every 1?2 hours. This is important to improve blood flow. Ask for help if you feel weak or unsteady. ? Rest as told by your health care provider. ? Do exercises as told by your health care provider. ? Return to your normal activities as told by your health care provider. Ask your health care provider what activities are safe for you. Driving ? If you were given a sedative during the procedure, it can affect you for several hours. Do not drive or operate machinery until your health care provider says that it is safe. ? Ask your health care provider if the medicine prescribed to you requires you to avoid driving or using machinery. General instructions ? Raise (elevate) your legs above the level of your heart while you are sitting or lying down. ? Take cukh-pgb-moadysg and prescription medicines only as told by your health care provider. ? Do not take long car trips or travel by air until your health care provider has approved. ? Wear compression stockings as told by your health care provider. These stockings help to prevent blood clots and reduce swelling in your legs. ? Do not use any products that contain nicotine or tobacco. These products include cigarettes, chewing tobacco, and vaping devices, such as e-cigarettes. These can delay incision healing after the procedure. If you need help quitting, ask your health care provider. ? Keep all follow-up visits. This is important. Contact a health care provider if you have: ? A fever. ? More redness, swelling, or pain at the site of your incision. ? Fluid or blood coming from your incision. ? Warmth at the incision area. ? Pus or a bad smell coming from your incision. Get help right away if: ? You notice red streaks coming from the incision. ? You develop nausea or vomiting. ? You have trouble breathing. ? You develop chest pain. Summary ? Follow instructions from your health care provider about how to take care of your incision. ? Avoid sitting for a long time without moving. Get up to take short walks every 1?2 hours. ? Wear compression stockings as told by your health care provider. These stockings help to prevent blood clots and reduce swelling in your legs. ? Contact a health care provider if you have more redness, swelling, or pain at the site of your incision. ? Keep all follow-up visits. This is important. This information is not intended to replace advice given to you by your health care provider. Make sure you discuss any questions you have with your health care provider. Document Revised: 11/19/2021 Document Reviewed: 11/19/2021 [employer] Patient Education ? 2024 [employer]. [facility] 12-31-2024 Note Procedures Endovenous Ablation Endovenous ablation is a procedure that seals off an abnormally enlarged leg vein (varicose vein). This procedure uses heat from radiofrequency waves or a laser to close off the affected vein. This procedure leaves the vein in place, so there is minimal pain and bruising. Closing off the vein can help reduce symptoms by preventing the pooling of blood that causes varicose veins. This procedure may be done if the vein is causing pain, swelling, sores on the skin (ulcers), or skin discoloration. Tell a health care provider about: ? Any allergies you have. ? All medicines you are taking, including vitamins, herbs, eye drops, creams, and uncb-tal-upafluu medicines. ? Any problems you or family members have had with anesthetic medicines. ? Any bleeding problems you have. ? Any surgeries you have had. ? Any medical conditions you have or have had. ? Whether you are or may be . What are the risks? Generally, this is a safe procedure. However, problems may occur, including: ? Infection. ? Bleeding. ? Allergic reactions to medicines. ? Damage to nearby structures. ? Numbness or tingling along the leg. This is uncommon, and it is usually temporary. ? Vein swelling. This is usually temporary. ? Blood clots that form in a deep vein of the leg (deep vein thrombosis, or DVT) and can travel to the lungs (pulmonary embolism, or PE). This is very rare. What happens before the procedure? When to stop eating and drinking Follow instructions from your health care provider about what you may eat and drink before your procedure. These may include: ? 8 hours before your procedure ? Stop eating most foods. Do not eat meat, fried foods, or fatty foods. ? Eat only light foods, such as toast or crackers. ? All liquids are okay except energy drinks and alcohol. ? 6 hours before your procedure ? Stop eating. ? Drink only clear liquids, such as water, clear fruit juice, black coffee, plain tea, and sports drinks. ? Do not drink energy drinks or alcohol. ? 2 hours before the procedure ? Stop drinking all liquids. ? You may be allowed to take medicines with small sips of water. If you do not follow your health care provider's instructions, your procedure may be delayed or canceled. Medicines Ask your health care provider about: ? Changing or stopping your regular medicines. This is especially important if you are taking diabetes medicines or blood thinners. ? Taking medicines such as aspirin and ibuprofen. These medicines can thin your blood. Do not take these medicines unless your health care provider tells you to take them. ? Taking swsp-qkp-pcrydli medicines, vitamins, herbs, and supplements. General instructions ? You may have blood tests to make sure that your blood can clot normally. ? Do not use any products that contain nicotine or tobacco for at least 4 weeks before the procedure. These products include cigarettes, chewing tobacco, and vaping devices, such as e-cigarettes. If you need help quitting, ask your health care provider. ? Plan to have a responsible adult take you home from the hospital or clinic. ? If you will be going home right after the procedure, plan to have a responsible adult care for you for the time you are told. This is important. ? Ask your health care provider what steps will be taken to help prevent infection. These may include: ? Removing hair at the procedure site. ? Washing skin with a germ-killing soap. What happens during the procedure? ? You will lie on an exam table. ? An IV will be inserted into one of your veins. ? You will be given one or more of the following: ? A medicine to help you relax (sedative). ? A medicine to numb the area (local anesthetic). ? A medicine to make you fall asleep (general anesthetic). ? Your health care provider will use an imaging tool that uses sound waves (ultrasound) to show images of your leg veins and to mehul the skin over the target treatment vein. ? A small incision will be made near the area that will be treated. A thin tube (catheter) will be slipped through the incision and into the vein. ? Your health care provider will inject a solution of salt water and anesthetic agent along the length of the vein to be treated. ? Electrodes or laser fibers will be passed through the catheter and into the vein. ? Radiofrequency or laser energy will be sent through the electrodes or laser fibers to burn the vein. This seals off the vein. ? The electrodes, laser fibers, and catheter will be removed from the vein. ? A bandage (dressing) will be placed over the incision. The procedure may vary among health care providers and hospitals. What happens after the procedure? ? Your blood pressure, heart rate, breathing rate, and blood oxygen level may be monitored until you leave the hospital or clinic. ? You may have to wear compression stockings. These stockings help (more content not included)... [facility] 12-24-2024 Note Procedures Endovenous Ablation, Care After The following information offers guidance on how to care for yourself after your procedure. Your health care provider may also give you more specific instructions. If you have problems or questions, contact your health care provider. What can I expect after the procedure? After the procedure, it is common to have: ? Bruising. ? Tenderness. Follow these instructions at home: Incision care ? Follow instructions from your health care provider about how to take care of your incision. Make sure you: ? Wash your hands with soap and water for at least 20 seconds before and after you change your bandage (dressing). If soap and water are not available, use hand pondman. ? Change your dressing as told by your health care provider. ? Follow instructions from your health care provider about when you should remove your dressing. ? Check your incision area every day for signs of infection. Check for: ? Redness, swelling, or pain. ? Fluid or blood. ? Warmth. ? Pus or a bad smell. ? Keep the dressing dry until your health care provider says it can be removed. Activity ? Avoid sitting for a long time without moving. Get up to take short walks every 1?2 hours. This is important to improve blood flow. Ask for help if you feel weak or unsteady. ? Rest as told by your health care provider. ? Do exercises as told by your health care provider. ? Return to your normal activities as told by your health care provider. Ask your health care provider what activities are safe for you. Driving ? If you were given a sedative during the procedure, it can affect you for several hours. Do not drive or operate machinery until your health care provider says that it is safe. ? Ask your health care provider if the medicine prescribed to you requires you to avoid driving or using machinery. General instructions ? Raise (elevate) your legs above the level of your heart while you are sitting or lying down. ? Take rvlb-kzt-yrghqhl and prescription medicines only as told by your health care provider. ? Do not take long car trips or travel by air until your health care provider has approved. ? Wear compression stockings as told by your health care provider. These stockings help to prevent blood clots and reduce swelling in your legs. ? Do not use any products that contain nicotine or tobacco. These products include cigarettes, chewing tobacco, and vaping devices, such as e-cigarettes. These can delay incision healing after the procedure. If you need help quitting, ask your health care provider. ? Keep all follow-up visits. This is important. Contact a health care provider if you have: ? A fever. ? More redness, swelling, or pain at the site of your incision. ? Fluid or blood coming from your incision. ? Warmth at the incision area. ? Pus or a bad smell coming from your incision. Get help right away if: ? You notice red streaks coming from the incision. ? You develop nausea or vomiting. ? You have trouble breathing. ? You develop chest pain. Summary ? Follow instructions from your health care provider about how to take care of your incision. ? Avoid sitting for a long time without moving. Get up to take short walks every 1?2 hours. ? Wear compression stockings as told by your health care provider. These stockings help to prevent blood clots and reduce swelling in your legs. ? Contact a health care provider if you have more redness, swelling, or pain at the site of your incision. ? Keep all follow-up visits. This is important. This information is not intended to replace advice given to you by your health care provider. Make sure you discuss any questions you have with your health care provider. Document Revised: 11/19/2021 Document Reviewed: 11/19/2021 [employer] Patient Education ? 2023 [employer]. [facility] 11-22-2024 History of Presen t illness Narrative Reason for Appointment: Patient ID: Julia Quispe is a 54 y.o. female who presents for Contraception Patient presents today for a nurse visit to obtain Depo injection. Current Medications: has a current medication list which includes the following prescription(s): calcium, cetirizine, cholecalciferol, and medroxyprogesterone, and the following Facility-Administered Medications: medroxyprogesterone. Allergies Allergen Reactions Codeine Hives Midazolam Hives Other Reaction(s): Not available midazolam Vitals: Estimated body mass index is 30.96 kg/m as calculated from the following: Height as of 01/10/24: 5' 3 . Weight as of this encounter: 174 lb 12 oz. BP: No LMP recorded (lmp unknown). Patient has had an injection. Assessment/Plan Encounter Diagnosis Name Primary? Encounter for surveillance of injectable contraceptive Patient presents today for injection of Depo-Provera. Patients urine test today was negative. Depo injection was given intramuscularly via left buttocks Prior to administering the injection, the site was properly cleansed and time was allotted for the area to dry. BP not obtained Follow up: Patient is to return in 12 weeks for another Depo injection Documented by Dr. Luis Angel Esquivel & Yary Bliss PA-C Nursing Staff: Sharon Oliver MA documented in this encounter [facility] 03-07-2024 History of Presen t illness Narrative Reason for Appointment: Patient ID: Julia Quispe is a 53 y.o. female who presents for Well Women Visit Patient presents today for Annual Exam. MEDICATIONS Current Outpatient Medications Medication Instructions calcium 200 MG tablet Calcium cetirizine (ZYRTEC) 10 mg, Oral, Daily cholecalciferol (Vitamin D-3) 25 MCG (1000 UT) capsule Vitamin D-3 medroxyPROGESTERone (Depo-Provera) 150 MG/ML injection INJECT 1 ML INTO THE SHOULDER, THIGH, OR BUTTOCKS EVERY 3 MONTHS ALLERGIES Allergies Allergen Reactions Codeine Hives Midazolam Hives PROBLEMS Active Ambulatory Problems Diagnosis Date Noted No Active Ambulatory Problems Resolved Ambulatory Problems Diagnosis Date Noted No Resolved Ambulatory Problems Past Medical History: Diagnosis Date Abnormal Pap smear of cervix 1994? 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 Exam conducted with a special agent present. Vitals: Estimated body mass index is 28.84 kg/m as calculated from the following: Height as of 24: 5' 3 . Weight as of this encounter: 162 lb 12.8 oz. BP: 120/70 No LMP recorded. Patient has had an injection. ASSESSMENT & PLAN ICD-10-CM 1. Encounter for management and injection of depo-Provera Z30.42 THIN PREP TIS PAP AND HR HPV DNA 2. Breast cancer screening by mammogram Z12.31 Bilateral screening mammogram Bilateral screening mammogram 3. Postmenopausal state Z78.0 DEXA bone density Annual: Patient presents today for an annual exam. Patient states she is doing well and has no complaints. Pap was obtained without difficulty and patient given mammogram and dexa scan order to have scheduled/obtained. Orders Placed This Encounter Procedures Bilateral screening mammogram DEXA bone density Follow Up: Pt being referred to Dr Almanzar for colonoscopy. Patient is to return in one year for annual unless needed otherwise. Documented by Nikole Belcher LPN on behalf of: Luis Angel Esquivel DO documented in this encounter [facility] 08-02-2023 History of Presen t illness Narrative [...] calculated from the following: Height as of 23: 5' 3 . Weight as of this [...] for another Depo injection Documented by Dr. Luis Angel Esquivel & Yary Bliss PA-C Nursing Staff: Karolyn Santos LPN documented in this encounter [facility] 10-27-2022 Evaluation note Encounter Date Diagnosis Assessment Notes October, Right calf pain (ICD-10 - M79.661) eval w d-dimer as she presently doesn't have symptoms October, Other fatigue (ICD-10 - R53.83) discussed differential - will get labs right now. Discussed sleep quality and regular routine. October, Trochanteric bursitis, right hip (ICD-10 - M70.61) Gave HO of specific stretches. Outline Other 05-15-2022 NoteMR#: [id number] I [facility] Pt. Name: Julia Quispe Admitted: 11/04/2021 Discharged: [...] Tolentino CNP Date Trans: 11/07/2021 11:18 P/adrianna [id number] [facility]05-05-2022 NoteMR#: [id number] I [facility] Pt. Name: Julia Quispe Admitted: 10/23/2021 Discharged: 10/28/2021 Date of : 1970 Physician: Alejandrina Garza MD DISCHARGE SUMMARY PRINCIPAL DIAGNOSES: Abdominal abscess status post appendectomy on 10/14, and on 10/18, evacuation of hematoma done at outside hospital at [facility]. PROCEDURE PERFORMED: During this hospital stay was IR drain placed on 10/24 into the abdominal abscess. HOSPITAL COURSE: The patient is a 51-year-old female presented to the hospital for complaints of right lower quadrant pain. She recently underwent appendectomy on 10/14/2021 at [facility] and she was readmitted on Tuesday, 10/18 for right lower quadrant pain and she had a diagnostic laparoscopy for evacuation of hematoma on 10/19/2021 at [place]. She came back in for continued pain. [...] Tolentino CNP Date Trans: 10/29/2021 05:27 A/adrianna [id number] cc: Jonatan Beltran M.D. [address] [place] [phone] History general Narrative - Reported* Type Description Date Medical History SVT Medical History Factor 5 Surgical History Appendectomy 09/2021 [facility] Other Evaluation noteNort [employer] Other Evaluation noteNo InformationNort [employer] Other Evaluation noteNo assessment information available [facility] Work Phone: Evaluation note* Diagnosis Encounter for management and injection of depo-Provera documented [facility]* Diagnosis Onset Date Resolution Status Lateral epicondylitis, left elbow acute [facility] Work Phone: Evaluation note* Diagnosis Onset Date Resolution Status Lateral epicondylitis, left elbow acute Lateral epicondylitis, left elbow acute [facility] Work Phone: Evaluation note* Diagnosis Encounter for management and injection of depo-Provera Breast cancer screening by mammogram Postmenopausal state Asymptomatic postmenopausal status (age-related) (natural) documented in this encounter [facility]* Diagnosis Encounter for surveillance of injectable contraceptive documented [facility] encounter [facility]* Diagnosis Ingrown toenail- Primary Ingrowing nail Pain of toe of right foot documented in this encounter [facility]* Diagnosis Well woman exam with routine gynecological exam Routine gynecological examination Encounter for screening mammogram for malignant neoplasm of breast Postmenopausal state Asymptomatic postmenopausal status (age-related) (natural) documented in this encounter [facility] HealthcareHistory general Narrative - [facility] [employer] Other History general Narrative - Reported* Type Description Date Medical History SVT Medical History Factor 5 Medical History Asthma Medical History Postmenopausal Medical History 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 Medical History Acute deep vein thro mbosis (DVT) of distal end of left lower extremity Surgical History Appendectomy 09/2021 Surgical History Surgical History WRIST Hospitalization History SEE SURGICAL HX [facility] Other Summary Purpose Family History Relationship Condition Age at Onset Recorded Date/T dianne Not Specified Heart disease Unknown Relationship Condition Age at Onset Recorded Date/T dianne mother Heart disease Unknown Advance Directives Advance Directive Response Recorded Date/ Time Advance [...] M77.12 M77.12 M77.12 Chief Complaint M77.12 M77.12 [facility] DOI 05/12/23 LT ELBOW M77.12 - Lateral epicondylitis, left elbow Reason for Visit Lateral epicondyliti s, left elbow Chief Complaint M77.12 [facility] DOI 05/12/23 LT ELBOW M77.12 - Lateral epicondylitis, left elbow 8 WEEKS Reason for Visit Lateral epicondyliti s, left elbow Lateral epicondylitis, left elbow Additional Source Comments INFORMATION SOURCE (unrecogn ized section and content) DATE CREATED AUTHOR 01/15/2022 [facility] DATE CREATED AUTHOR AUTHOR'S ORGANIZ ATION 03/06/2022 [facility] DATE CREATED AUTHOR AUTHOR'S ORGANIZ ATION 11/04/2022 [facility] DATE CREATED AUTHOR AUTHOR'S ORGANIZ ATION 03/03/2024 [facility] DATE CREATED AUTHOR AUTHOR'S ORGANIZ ATION 03/02/2025 [facility] EPIC DATE CREATED AUTHOR AUTHOR'S ORGANIZ ATION 03/03/2025 [facility] REASON FOR VISIT (unrecogniz ed section and content) Reason Comments Contraception Depo injection Reason Comments Well Women Visit Reason Comments Contraception Reason Comments Gynecologic Exam Care Teams (unrecognized sec tion and content) Team Status: Active Member Role Status Dates Jacques Zavala MD Primary Care Provider Active Team Status: Inactive Member Role Status Dates Jacques Zavala MD Primary Care Provider Active Adriane Rausch APRN Attending Provider Active Boat Rental Clerk Relationship Specialty Start Date End Date Jacques Zavala MD [address] [place] [phone] PCP - General Family Medicine 01/06/23 Team Status: Inactive Member Role Status Dates Jacques Zavala MD Primary Care Provider Active Start: May 13, 2023 End: May 13, 2023 Adriane Rausch APRN Attending Provider Active Start: May 13, 2023 End: May 13, 2023 Team Status: Inactive Member Role Status Dates Jacques Zavala MD Primary Care Provider Active Start: May 24, 2023 End: May 24, 2023 Adriane Rausch APRN Attending Provider Active Start: May 24, 2023 End: May 24, 2023 Team Status: Inactive Member Role Status Dates Jacques Zavala MD Primary Care Provider Active Start: June 07, 2023 End: June 07, 2023 Adriane Rausch APRN Attending Provider Active Start: June 07, 2023 End: June 07, 2023 Team Status: Inactive Member Role Status Dates Jacques Zavala MD Primary Care Provider Active Start: June 24, 2023 End: June 24, 2023 Adriane Rausch APRN Attending Provider Active Start: June 24, 2023 End: June 24, 2023 Team Status: Inactive Member Role Status Dates Jacques Zavala MD Primary Care Provider Active Start: July 29, 2023 End: July 29, 2023 Adriane Rausch APRN Attending Provider Active Start: July 29, 2023 End: July 29, 2023 Team Status: Inactive Member Role Status Dates Jacques Zavala MD Primary Care Provider Active Start: September 16, 2023 End: September 16, 2023 Adriane Rausch APRN Attending Provider Active Start: September 16, 2023 End: September 16, 2023 Team Status: Inactive Member Role Status Dates Jacques Zavala MD Primary Care Provider Active Start: September 29, 2023 End: September 29, 2023 Adriane Rausch APRN Attending Provider Active Start: September 29, 2023 End: September 29, 2023 Team Status: Inactive Member Role Status Dates Jacques Zavala MD Primary Care Provider Active Start: December 06, 2023 End: December 06, 2023 Adriane Rausch APRN Attending Provider Active Start: December 06, 2023 End: December 06, 2023 Team Status: Inactive Member Role Status Dates Jacques Zavala MD Primary Care Provider Active Start: February 14, 2024 End: February 14, 2024 Adriane Rausch APRN Attending Provider Active Start: February 14, 2024 End: February 14, 2024 Team Status: Inactive Member Role Status Dates Jacques Zavala MD Primary Care Provider Active Start: March 01, 2024 End: March 01, 2024 Pasha Kinney DO Attending Provider Active St art: March 01, 2024 End: March 01, 2024 Team Status: Active Member Role Status Dates Jacques Zavala MD Primary Care Provider Active Start: March 01, 2024 Pasha Kinney DO Attending Provider Active St art: March 01, 2024 Team Status: Active Member Role Status Dates Jacques Zavala MD Primary Care Provider Active Start: March 07, 2024 Luis Angel Esquivel DO Attending Provider Active Start : March 07, 2024 Team Status: Inactive Member Role Status Dates Jacques Zavala MD Primary Care Provider Active Start: April 26, 2024 End: April 26, 2024 Pasha Kinney DO Attending Provider Active St art: April 26, 2024 End: April 26, 2024 Boat Rental Clerk Relationship Specialty Start Date End Date Jacques Zavala MD [address] [facility] [phone] PCP - General Family Medicine 01/06/23 Boat Rental Clerk Relationship Specialty Start Date End Date Jacques Zavala MD [address] [facility] [phone] PCP - General Family Medicine 01/06/23 Boat Rental Clerk Relationship Specialty Start Date End Date Jacques Zavala MD [address] [facility] [phone] PCP - General Family Medicine 01/06/23 Boat Rental Clerk Relationship Specialty Start Date End Date Jacques Zavala MD [address] [facility] [phone] PCP - General Family Medicine 01/06/23 Boat Rental Clerk Relationship Specialty Start Date End Date Jacques Zavala MD [address] [facility] [phone] PCP - General Family Medicine 01/06/23 Boat Rental Clerk Relationship Specialty Start Date End Date Jacques Zavala MD [address] [place] [phone] PCP - General Family Medicine 01/06/23 Boat Rental Clerk Relationship Specialty Start Date End Date Jacques Zavala MD [address] [place] [phone] PCP - General Family Medicine 01/06/23 Goals (unrecognized section and content) Goals may [...] BE BASED ON THE PRIMARY CLINICAL RECORDS. [employer] [facility]. provides no warranty or guarantee of the accuracy or completeness of information in this document.
[2025-03-19 15:08] LABS: Age Gdln ACOG Testing Note (.); IGP, Aptima HPV, rfx 16/18,45 Note (.)
== END 2025-03-13 20:15 | disposition home or self-care (01) ==
LOC: LAB 20:14
PROVIDERS: PCP Family Medicine; Visit Provider Obstetrics & Gynecology
DX: Z01.419 Encounter for gynecological examination (general) (routine) without abnormal findings (principal)
CPT/HCPCS: 87624; 88175

== ENCOUNTER 2025-04-18 14:42 | Outpatient (OUT) | payer BC, SELFPAY ==
--- NOTE | 2025-04-18 14:45 | MM_ITS ---
Patient Name: LISA QUISPE MR#: [id number] : 1970 Exam Date: 04/18/2025 Ordering Doctor: DR WINSOME PACE . RADIOLOGY REPORT PROCEDURE: MM TOMOSYNTHESIS SCREENING BI COMPARISON: MM TOMOSYNTHESIS SCREENING BI, 04/12/2024. MG MAMM SCREEN 3D KATARINA CAD, 05/07/2022. MG MAMM SCREEN 3D KATARINA CAD, 01/08/2021. MG MAMM KATARINA SCRN W CAD DIG, 12/04/2013. INDICATIONS: screening Calculator Name NCI Breast Cancer Risk Assessment Tool 5 Year Breast Cancer Risk 2.10% Lifetime Breast Cancer Risk 15.50% Personal Breast Cancer No Personal Ovarian Cancer No Treatments None Family Cancers None LOCATION: [facility] BREAST COMPOSITION: The breasts are heterogeneously dense, which may obscure small masses. FINDINGS: RIGHT BREAST: No significant suspicious finding. LEFT BREAST: No significant suspicious finding. DIAGNOSTIC CATEGORY 1--NEGATIVE. RECOMMENDATIONS: ROUTINE MAMMOGRAM AND CLINICAL EVALUATION IN 12 MONTHS. Dictated by: Dennis Fuentes DO on 04/18/2025 at 15:25 Approved by: Dennis Fuentes DO on 04/18/2025 at 15:26
--- OUTSIDE RECORDS SUMMARY | 2025-04-18 14:45 | XMS_ITS | Encounter Summary ---
Author Organization [facility] Address [address] [place] [address] Care Team Providers Care Patternmaker Name Role Phone Liliane Penn MD Primary Care Provider [phone] Encounter Details DateTypeDepartmentCare Team (Latest Contact Info)Rrzltrpjxnl54/14/2025Travel Social History Tobacco UseTypesPacks/DayYears UsedDateSmoking Tobacco: UwrnurTuauuxppql163Gkzu: 10/11/2009Smokeless Tobacco: Never Comments:5-10 years since smoked Alcohol UseStandard Drinks/WeekCommentsYes3 (1 standard drink = 0.6 oz pure alcohol)3-4 drinks less than monthly in the past year, Caffeine intake: 1-2 cups per day coffeeCommentsUnknownSex and Gender InformationValueDate RecordedSex Assigned at VubfqWrofpt38/06/2023 4:35 PM EDTLegal SexFemale 09/08/2022 6:48 PM EDTGender IidrdfopAvqyyz57/06/2023 4:35 PM EDTSexual OrientationNot on filedocumented as of this encounter Plan of Treatment DateTypeDepartmentCare Team (Latest Contact Info)Fazcyehpgdy25/20/2025 3:00 PM ESTClinical Support [facility] [address] [place] [address] 03/19/2026 3:00 PM [place]TPro[place] [phone] Luis Angel Esquivel, [address] [place] [address] [place] [address] [address] documented as of this encounter Visit Diagnoses Not on filedocumented in this encounter Care Teams Team MemberRelationshipSpecialtyStart DateEnd Date Liliane Penn MD [address] [facility] [place] [place] [address] PCP - GeneralFamily Medicine01/06/23documented as of this encounter
--- OUTSIDE RECORDS SUMMARY | 2025-04-18 14:45 | XMS_ITS | Clinical Summary ---
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 Name Role Phone Liliane Penn MD Primary Care Provider [phone] Allergies Active AllergyReactionsCriticalityNoted PjlnRmyhbqfrLevqswhLguip61/01/2022 QhqufpuflAsqgg87/01/2022 Other Reaction(s): Not available midazolam Medications MedicationSigDispense QuantityRefillsLast FilledStart DateEnd DateStatus cholecalciferol (Vitamin D-3) 25 MCG (1000 UT) capsule Vitamin D-3Active calcium 200 MG tablet CalciumActive cetirizine (ZyrTEC) 5 MG tablet Take 10 mg by mouth DailyActive medroxyPROGESTERone (Depo-Provera) 150 MG/ML suspension prefilled syringe injection syringe Indications: control counselingInject 1 mL (150 mg) into the shoulder, thigh, or buttocks every 3 (three) months 1 mL 5ActiveHospital, Clinic, or Other Facility Administered MedicationOrdered DoseRouteFrequencyStart DateEnd DateStatus medroxyPROGESTERone (Depo-Provera) injection 150 mg Indications:Encounter for surveillance of injectable cnnwbvilkxdye529 mgIMOnce 5Active Active Problems ProblemNoted DateDiagnosed DateWell woman exam with routine gynecological exam 03/13/2025 Encounters DateTypeDepartmentCare ShbtYzexjtuboez62/14/0827Lmlgkw14/25/2025Orders Only [facility] [address] [place] [phone] Sharon Oliver MA 03/13/2025 3:00 PM EDTOffice Visit [facility] [place] [phone] Luis Angel Esquivel, DO Well woman exam with routine gynecological exam; Encounter for screening mammogram for malignant neoplasm of breast; Postmenopausal state03/13/2025linisync Result Encounter [facility] Unsolicited Luis Angel Esquivel, DO 03/13/2025amboo flowsheet [facility] [address] [place] [phone] Luis Angel Esquivel, DO 03/06/20254936Lzqdkh39/04/2025 3:15 PM EDTOffice Visit [facility] [address] [place] [address] Aria Farooq, DPM Ingrown toenail (Primary Dx); Pain of toe of right foot02/28/2025amboo flowsheet [facility] [address] [place] [address] Aria Farooq, DPM 02/28/20256906Aagbtt43/28/2025 3:00 PM EDTClinical Support [facility] [address] [place] [phone] Encounter for surveillance of injectable xgqkedmantukb44/28/1995Prretd42/21/2025 Travelfrom Last 3 Months Family History Medical HistoryRelationNameCommentsDiabetesMaternal GrandmotherLeona hasselbach Atrial fibrillationMotherMardelleCOPDMotherMardelleHeart diseaseMotherMardelle HypertensionMotherMardelleRelationNameStatusCommentsBrotherAliveFatherAlive Maternal GrandmotherLeona hasselbachDeceasedMotherMardelleAliveSisterAliveSon Alive Social History Tobacco UseTypesPacks/DayYears UsedDateSmoking Tobacco: IcijwfPtayhzmhti137Uvhx: 10/11/2009Smokeless Tobacco: Never Tobacco Cessation:Counseling Given: Not Answered Comments:5-10 years since last smoked Alcohol UseStandard Drinks/WeekCommentsYes3 (1 standard drink = 0.6 oz pure alcohol)3-4 drinks less than monthly in the past year, Caffeine intake: 1-2 cups per day coffeeCommentsUnknownSex and Gender InformationValueDate RecordedSex Assigned at KmmehOrrmzp38/06/2023 4:35 PM EDTLegal SexFemale 09/08/2022 6:48 PM EDTGender MpomcctlPmjgjq63/06/2023 4:35 PM EDTSexual OrientationNot on file Last Filed Vital Signs Vital SignReadingTime TakenCommentsBlood Kjshybgs526/9203/13/2025 3:42 PM EDT Pulse--Temperature--Respiratory Rate--Oxygen Saturation--Inhaled Oxygen Concentration--Znvybu64.1 kg (170 lb)03/13/2025 3:42 PM PFKPxfsex414 cm (5' 3 ) 01/10/2024 3:16 PM EDTBody Mass Index30.1107 3:16 PM EDT Plan of Treatment DateTypeDepartmentCare Team (Latest Contact Info)Ovbnfyukirs93/20/2025 3:00 PM ESTClinical Support [facility] [address] [place] [address] [place] [address] 03/19/2026 3:00 PM EDTProcedure Visit [facility] [address] [place] [address] [place] [address] Luis Angel Esquivel DO [address] [place] [address] Dr Óscar [place], [place] [address] Procedures Procedure NamePriorityDate/TimeAssociated DiagnosisCommentsIGP,APTIMA HPV,AGE BZOMCnciiiv03/17/2025 3:27 PM EDT PAP KGZJPNmkbenp70/17/2025 12:00 AM EDTPOCT , OGNJGSjuoymd58/28/2025 3:15 PM EDT Encounter for surveillance of injectable contraceptive from Last 3 Months Results * IGP,APTIMA HPV,AGE GDLN (03/13/2025 3:27 PM EDT)ComponentValueRef RangeTest MethodAnalysis TimePerformed AtPathologist SignatureAGE GDLN ACOG TESTINGNote. TBHComment: ?? TESTS ? RESULT ??FLAG ??UNITS ?REF RANGE ??LAB ?? Clinician Provided Cytology Information ?? Source.............Cervix ?? No. of containers..01 ThinPrep Vial Age Algo ACOG Berta... ??30-65 ? 01 ?FLAG LEGEND: ?L-Low Normal,H-High Normal,LL-Alert Low,HH-Alert High <-Panic Low,>-Panic High,A-Abnormal,AA-Critical Abnormal Performed at: 01 =G ?[facility] ?? [address] [place] ??[phone] ?? Verna Velez MD, IGP, APTIMA HPV, RFX 16/18,45Note.TBHComment: ?? TESTS ? RESULT ??FLAG ??UNITS ?REF RANGE ??LAB DIAGNOSIS: ?02 ?? NEGATIVE FOR INTRAEPITHELIAL LESION OR MALIGNANCY. ?? CELLULAR CHANGES ASSOCIATED WITH ATROPHY ARE PRESENT. Specimen adequacy: ?02 ?? Satisfactory for evaluation. ??Endocervical component may not be ?? distinguished in cases of atrophy. Performed by: ? 02 ?? Izabella Braswell Occupational Nurse (ASCP) . ? 02 Note: ? Note ?02 ?? The Pap smear is a screening test designed to aid in the ?? detection of premalignant and malignant conditions of the ?? uterine cervix. ??It is not a diagnostic procedure and ?? should not be used as the sole means of detecting cervical ?? cancer. ??Both false-positive and false-negative reports do ?? occur. Test Methodology: ? Note ?02 ?? This liquid based ThinPrep(R) pap test was screened with ?? the use of an image guided system. HPV Genotype Reflex ?? Note ?02 ?? Criteria not met, HPV Genotype not performed. ?FLAG LEGEND: ?L-Low Normal,H-High Normal,LL-Alert Low,HH-Alert High <-Panic Low,>-Panic High,A-Abnormal,AA-Critical Abnormal Performed at: 02 WB ?[facility] ?? [address] [place], [place] ??[phone] ?? Verna Velez MD, HPV APTIMANegativeNegativeTBHComment: This nucleic acid amplification test detects fourteen high- risk HPV types (16,18,31,33,35,39,45,51,52,56,58,59,66,68) without differentiation. Performed at: ??=G - [facility] ??[id number] [employer] Media Specialist: Verna Velez MD, Phone: ??[phone] Performed at: ??WB - [facility] ??[id number] [employer] Media Specialist: Verna Velez MD, Phone: ??[phone] Specimen (Source)Anatomical Location / LateralityCollection Method / Volume Collection TimeReceived Time03/13/2025 3:27 PM EDT03/14/2025 6:03 AM EDT Narrative [facility]IN[facility] - 03/19/2025 3:08 PM EDT BRUSH-SPATULA CERVIX Authorizing ProviderResult TypeResult StatusCorey Alivn DOLAB BLOOD ORDERABLES Final ResultPerforming OrganizationAddressCity/State/ZIP CodePhone Number CLINISYOK [facility] * Pap Smear (03/13/2025 12:00 AM EDT)Specimen (Source)Anatomical Location / LateralityCollection Method / VolumeCollection TimeReceived TimeSwabCervical swab / Unknown Narrative Authorizing ProviderResult TypeResult StatusCorey Alvin DOLAB CYTOLOGY ORDERABLESFinal ResultPerforming OrganizationAddressCity/State/ZIP CodePhone Number EXTERNAL LAB * POCT , urine manually resulted (02/21/2025 3:15 PM EDT)ComponentValue Ref RangeTest MethodAnalysis TimePerformed AtPathologist SignaturePreg Test, UrNegativeNegativeSpecimen (Source)Anatomical Location / LateralityCollection Method / VolumeCollection TimeReceived TbbcCyqqm45/28/2025 3:15 PM EDT Narrative Authorizing ProviderResult TypeResult StatusCorey Alvin DOPOINT OF CARE TEST ENTER/EDIT ORDERABLESFinal Result from Last 3 Months Insurance Care Teams Team MemberRelationshipSpecialtyStart DateEnd Date Liliane Penn MD [address] [place] [address] [facility]06/23
--- OUTSIDE RECORDS SUMMARY | 2025-04-18 14:45 | XMS_ITS | Clinical Summary ---
Author Organization [employer] [facility] tem Address [id number] [address] [place] [address] Care Team Providers Care Ehs Teacher Name Role Phone Liliane Penn MD Primary Care Provider [phone] Social History Tobacco UseTypesPacks/DayYears UsedDateSmoking Tobacco: Never Assessed CommentsUnknownSex and Gender InformationValueDate RecordedSex Assigned at Not on fileLegal BpjCftsrw83/21/2022 1:32 PM EDTGender IdentityNot on file Sexual OrientationNot on file Plan of Treatment Health MaintenanceDue DateLast DoneCommentsDepression Avzrspeda47/22/1984Tobacco Hjyllcgkf47/22/1984Adult BMI Oszdcxvgf14/22/1990DTaP,Tdap and Td Vaccines (1 - Tdap)1990Pap Smear1992Zoster (Shingles) Vaccine (1 of 2)2021 Influenza Bvwouku0702/25/2025 Medical Devices Not on file Care Teams Team MemberRelationshipSpecialtyStart DateEnd Date Liliane Penn MD [address] [place] [address] PCP - GeneralFamily Medicine10/15/21
--- OUTSIDE RECORDS SUMMARY | 2025-04-18 14:47 | XMS_ITS | CCD ---
Author Organization [facility] CliniSyal Care Team Providers Care Leather Products Supervisor Name Role Phone JACQUES ZAVALA Primary Care Unavailable JESSICA BARBOSA Admitting Unavailable JESSICA BARBOSA Attending Unavailable JONATAN BELTRAN Referring Unavailable JACQUES ZAVALA Primary Care Unavailable JESSICA BARBOSA Admitting Unavailable JESSICA BARBOSA Attending Unavailable SELF, REFERRED Referring Unavailable Jacques Zavala Unavailable ALVIN ., DR SCHUMACHER Consulting Unavailable ALVIN ., DR SCHUMACHER Admitting Unavailable ZAVALA, DR JACQUES Poon Primary Care Unavailable ALVIN ., DR SCHUMACHER Attending Unavailable ALVIN ., DR SCHUMACHER Attending Unavailable CALDWELL, DR SEDA Donaldson Consulting Unavailable ZAVALA, DR JACQUES Poon Primary Care Unavailable ALVIN ., DR SCHUMACHER Admitting Unavailable ALVIN ., DR SCHUMACHER Consulting Unavailable JANIYA HAYES Consulting Unavailable ALESHA TREVIÑO Attending Unavailable SALLY, DR JACQUES Poon Primary Care Unavailable ALESHA TREVIÑO Admitting Unavailable SALLY, DR JACQUES Poon Primary Care Unavailable SALLY, DR JACQUES Poon Admitting Unavailable SALLY, DR JACQUES Poon Attending Unavailable SALLY, DR JACQUES Poon Consulting Unavailable MD Jacques Zavala Primary Care Provider MC Rausch Attending Provider Jacques Zavala MD Primary Care Provider [phone] MD Jacques Zavala Primary Care Provider MC Rausch Attending Provider MD Jacques Zavala Primary Care Provider MC Rausch Attending Provider MD Jacques Zavala Primary Care Provider MC Rausch Attending Provider MD Jacques Zavala Primary Care Provider MC Rausch Adriane Vik Attending Provider DO Pasha Kinney Attending Provider Rausch, Adriane D Admitting Unavailable Jacques Zavala Primary Care Unavailable Rausch, Adriane D Attending Unavailable Jacques Zavala Primary Care Unavailable Rausch, Adriane D Admitting Unavailable Rausch, Adriane D Attending Unavailable Jacques Zavala Primary Care Unavailable Pasha Kinney Admitting Unavailable Pasha Kinney Attending Unavailable Rausch, Adriane D Admitting Unavailable Jacques Zavala E Primary Care Unavailable Rausch, Adriane D Attending Unavailable Rausch, Adriane D Admitting Unavailable Jacques Zavala Primary Care Unavailable Rausch, Adriane D Attending Unavailable Rausch, Adriane D Admitting Unavailable Jacques Zavala Primary Care Unavailable Rausch, Adriane D Attending Unavailable Rausch, Adriane D Admitting Unavailable Jacques Zavala Primary Care Unavailable Rausch, Adriane D Attending Unavailable Jacques Zavala Primary Care Unavailable Rausch, Adriane D Admitting Unavailable Rausch, Adriane D Attending Unavailable Rausch, Adriane D Admitting Unavailable Jacques Zavala Primary Care Unavailable Rausch, Adriane D Attending Unavailable Rausch, Adriane D Admitting Unavailable Jacques Zavala Primary Care Unavailable Rausch, Adriane D Attending Unavailable MD Jacques Zavala Primary Care Provider MC Rausch Attending Provider Jacques Zavala MD Primary Care Provider ALISSA FAROOQ Attending Unavailable LUIS ANGEL ESQUIVEL Attending Unavailable Jacques Zavala MD Primary Care Provider Luis Angel Esquivel DO Attending Provider Jacques Zavala MD Attending Provider [phone] Janiya Hayes Primary Care Unavailable Seda Urias V. Admitting Unavailable Seda Urias V. Attending Unavailable Janiya Hayes Attending Unavailable Zieber, Janiya R. Admitting Unavailable Zieber, Janiya R. Primary Care Unavailable Zieber, Janiya R. Attending Unavailable Zieber, Janiya R. Admitting Unavailable Zieber, Janiya R. Primary Care Unavailable West, Seda Donaldson. Admitting Unavailable West, Seda Donaldson. Attending Unavailable Zieber, Janiya R. Primary Care Unavailable Zieber, Janiya R. Admitting Unavailable Zieber, Janiya R. Attending Unavailable Zieber, Janiya R. Primary Care Unavailable WestSeda V. Admitting Unavailable West, Seda Donaldson. Attending Unavailable Zieber, Janiya R. Primary Care [...] Attending Unavailable Zieber, Janiya R. Admitting Unavailable Allergies Allergy ClassificationReported Allergen(s)Allergy TypeDate of OnsetReaction(s) Facility (17 sources)Codeine; Translations: [codeine]Drug Wishmai36-14-3739AqxweHxaGenesis Hospital Repository (15 sources)MidazolamDrug Jptquoe48-02-9623Xflim, VERSEDGenesis Hospital Repository (18 sources)CodeineDrug Wldrpfe00-79-4483vuvsiJSHY Healthcare Work Phone: (7 sources)Midazolam; Translations: [Versed]Drug Lwjrait93-33-9123obfpoBtm [facility] Repository (1 source)CodeineDrug AllergyUnkSplice MachineChristian Hospital [facility] Other (1 source)Allergies ReconciledPropensity to adverse reactionsUnknowPlaycast Media Other (1 source)Versed *HYPNOTICS/SEDATIVES/SLEEP DISORDER AGENTS*Propensity to adverse reactionsIndiana University Health Methodist HospitalPlaycast Media Other (1 source)patient allergy list reviewed by nurse or physiciaPropensity to adverse ddjdpjrji16-56-6489Pfryvox:[facility] Other (13 sources)MidazolamDrug Jhnktrj41-68-3856EijuvKGVZ Healthcare (9 sources)Versed *HYPNOTICS/SEDATIVES/SLAllergy to yvcnsmaub46-01-9879KwykumaxdDayton Children's HospitalComment on above:Free Text Allergy: Versed *HYPNOTICS/SEDATIVES/SLEEP DISORDER AGENTS* (1 source)CodeineDrug Wncykqv46-56-9894EhifboadbGenesis Hospital Repository (1 source)MidazolamDrug Zqbowiw00-24-6086SmdzjtgguGenesis Hospital Repository Medications Current Medications MedicationDrug Class(es)DatesSig (Normalized)Sig (Original)ascorbic acid 500 mg oral capsule (1 source)Vitamin CAscorbic Acid (Vitamin C) 500 MG capsule Orally 0 Active Calcium (13 sources)Phosphate Binder, Calciumcalcium 200 MG tablet Calcium Activecalcium 200 MG tablet Calcium 0 ActiveCalcium Carb,Lactat-Vitamin D3 200 mg-6.25 mcg (250 unit) tablet (1 source)Start: 10-20-2727Yovfooy Carb,Lactat-Vitamin D3 200 mg-6.25 mcg (250 unit) tablet Active TAB PO March 222:00am Complies with drug therapycetirizine hydrochloride 10 mg oral capsule (17 sources)Histamine-1 Receptor AntagonistStart: 41-01-5088hcen 1 capsule by mouth once daily as neededCetirizine (Zyrtec) 10 mg capsule Active 10 MG PO Daily as needed March 22, 2025 12:00am Complies with drug therapytake 2 tablets by mouth once dailycetirizine (ZyrTEC) 5 MG tablet Take 10 mg by mouth Daily Activetake 1 tablet by mouth once dailyZyrTEC 10 MG 1 tablet Orally Once a day Activecholecalciferol 0.025 mg oral capsule (13 sources)Vitamin Dcholecalciferol (Vitamin D-3) 25 MCG (1000 UT) capsule Vitamin D-3 Activecholecalciferol (Vitamin D-3) 25 MCG (1000 UT) capsule Vitamin D-3 0 Activeivermectin 10 mg/ml topical cream (1 source)Antiparasitic, PediculicideStart: 47-19-9982Yvvbiwnbkg 1 % cream Active APPLIC TOPICAL March 22, 2025 12:00am Complies with drug therapy1 ml medroxyPROGESTERone acetate 150 mg/ml prefilled syringe (20 sources)ProgestinStart: 17-79-8180ldnrysxYKSILGBKZwro (Depo-Provera) injection 150 mgStart: 14-34-8660mozzyjtGATJSWACRtbh (Depo-Provera) injection 150 mgStart: 56-24-2981bekiau 1 dose by intramuscular injection qvgr293 mg, Intramuscular, at 150 mL/hr, Administer over 84 Days, Once, On Juliette 11/22/24 at 1530, For 1 doseStart: 06-12-2024 End: 77-74-6454Bonvkcmkjxjnocqizjk 150 mg/mL syringe Active MG IM March 22, 2025 12:00am Complies with drug therapyStart: 01-10-2024 medroxyPROGESTERone (Depo-Provera) injection 150 mgStart: 01-09-2024 medroxyPROGESTERone (Depo-Provera) 150 MG/ML injection Indications: control counseling INJECT1 ML INTO THE SHOULDER, THIGH, OR BUTTOCKS EVERY 3 MONTHS 1 mL 3 01/09/2024 ActiveStart: 08-02-2023 End: 02-67-4893tecdjvqCBLNEUUKHgtx (Depo-Provera) injection 150 mgStart: 08-02-2023 End: 04-75-0029cmsmmwmYNNNEFDJApyr (Depo-Provera) injection 150 mgStart: 05-09-2023 End: 10-42-7507fpvfddnUOBROGQMQnpq (Depo-Provera) 150 MG/ML injection Indications: control counseling Inject1 mL (150 mg) into the shoulder, thigh, or buttocks every 3 (three) months 1 mL 0 07/25/2023 ActiveDepo-Provera 150 MG/ML 1 mL Intramuscular ActiveMultivitamin preparation (12 sources)Start: 36-31-2680zuwe 1 tablet by mouth once dailyMultivitamin Active 1 TAB PO Daily August 31, 2018 1:00amStart: 23-06-7239xhib 1 tablet by mouth once dailyMultivitamin Active 1 TAB PO Daily August 31, 2018 12:00am Multivitamin Tablet (1 source)Start: 68-82-7218ercw 1 tablet by mouth once dailysertraline 50 mg oral tablet (3 sources)Serotonin Reuptake InhibitorStart: 45-55-4948ffya 1 tablet by mouth once dailySertraline HCl 50 MG 1 tablet Orally Once a day for 30 days Nov, ActiveStart: 05-17-4420nigppdkvbm 0.45 mg/ml topical lotion (4 sources)RetinoidArazlo 0.045 % 1 application Externally Once a day Active Arazlo 0.045 % 1 application Externally Once a day Active Completed/Discontinued Medications MedicationDrug Class(es)DatesSig (Normalized)Sig (Original)24 hr dilTIAZem hydrochloride 120 mg extended release oral capsule (13 sources)Calcium Channel BlockerStart: 08-31-2018 End: 26-01-9887rgdj 1 capsule by mouth once daily, then take 1 capsule by mouth every twenty-four hoursDiltiazem Hcl (Cardizem Cd) 120 mg capsule,extended release 24hr Discontinued 120 MG PO Daily 60 August 31, 2018 1:00am March 22, 2025 11:51amzolpidem tartrate 6.25 mg extended release oral tablet (17 sources)gamma-Aminobutyric Acid-ergic AgonistStart: 08-10-2023 End: 40-80-3767msxt 1 tablet by mouth once daily at bedtimeZolpidem 6.25 mg tablet,ext release multiphase Discontinued 6.25 MG PO Daily at bedtime 2023 12:45pm March 22, 2025 11:51amStart: 06-22-2023 End: 44-52-6077gygz 1 tablet by mouth once daily at bedtime as neededzolpidem CR (Ambien CR) 6.25 MG ER tablet TAKE 1 TABLET BY MOUTH EVERYDAY AT BEDTIME NEEDED 0 06/22/2023 08/02/2023 Discontinued Problems Active Problems Problem ClassificationProblemDateDocumented DateEpisodic/ChronicAdjustment disorders (6 sources)Adjustment disorder with mixed emotional features; Translations: [Adjustment disorder with mixed anxiety and depressed mood]Onset: 08-13-2016 ChronicAnxiety disorders (1 source)Anxiety disorder; Translations: [Other specified anxiety disorders] Onset: 45-34-8322NgsnynmWrtvtx (4 sources)Asthma; Translations: [Unspecified asthma, uncomplicated]Chronic Cardiac dysrhythmias (1 source)Supraventricular tachycardia; Translations: [Supraventricular tachycardia]ChronicContraceptive and procreative management (6 sources)Surveillance of depot contraception done; Translations: [Encounter for surveillance of injectable contraceptive]Onset: 04-06-2022 Resolved: 959883-14-0506FpuwglinHrgtntlfbtdyb and screening for infectious disease (2 sources)Encounter for screening for human papillomavirus (HPV); Translations: [Human papilloma virus screening]Onset: 42-69-6263BylgkebwHuiyzzc and fatigue (2 sources)Other fatigue; Translations: [OTHER FATIGUE]Onset: 68-99-5643Bbayhbps Mycoses (1 source)Candidiasis; Translations: [Candidiasis, unspecified]EpisodicOther aftercare (1 source)Long-term current use of drug therapy; Translations: [Other intermediate designer (current) drug therapy]EpisodicOther connective tissue disease (5 sources)Pain in right lower leg; Translations: [PAIN IN RIGHT LOWER LEG] Onset: 06-04-3238DojhlsuxUdwyj connective tissue disease (1 source)Trochanteric bursitis, right hipEpisodicOther connective tissue disease (4 sources)Lateral epicondylitis of left humerus; Translations: [Lateral epicondylitis, left elbow]73-63-0125TlflqfhkIyibg connective tissue disease (5 sources)Lateral epicondylitis, left elbow; Translations: [Lateral epicondylitis]Onset: 256887-18-4253HcbtsiacRemqk connective tissue disease (2 sources)Pain of toe of right foot; Translations: [Pain in right toe(s)] 01-92-6723FanvouazOuibl screening for suspected conditions (not mental disorders or infectious disease) (14 sources)Encounter for screening mammogram for malignant neoplasm of breast; Translations: [Encounter for screening for malignant neoplasm of cervix]Onset: 01-33-7643YzgmmcrjAlpup skin disorders (2 sources)Ingrowing toenail; Translations: [Ingrowing nail]64-08-4824Rgwevcgj Other upper respiratory infections (1 source)Chronic sinusitis; Translations: [Chronic sinusitis, unspecified] ChronicPhlebitis; thrombophlebitis and thromboembolism (7 sources)Deep venous thrombosis of peroneal vein; Translations: [Acute embolism and thrombosis of unspecified deep veins of left distal lower extremity]Onset: 54-12-7343MeeyhzcaIpmbdinz codes; unclassified (8 sources)Postmenopausal state; Translations: [Asymptomatic menopausal state] Onset: 835335-93-8046IiesihyyTphvwhpi codes; unclassified (1 source)Postprocedural state finding; Translations: [Other specified postprocedural states]EpisodicResidual codes; unclassified (1 source)Tobacco user; Translations: [Tobacco use]EpisodicResidual codes; unclassified (9 sources)Insomnia; Translations: [Insomnia, unspecified]80-29-0923Ovvbceyh Unclassified (1 source)Acute candidiasis of vulva and vagina; Translations: [Acute candidiasis of vulva and vagina]Unclassified (1 source)Lateral epicondylitis, left elbow; Translations: [Lateral epicondylitis, left elbow]Onset: 82-50-3691Bfthnxhb veins of lower extremity (3 sources)Varicose veins of bilateral lower extremities with pain; Translations: [Varicose veins of bilaterallower extremities with pain]Onset: 53-53-9403OkdtnhcfAppqc infection (13 sources)Disease caused by ; Translations: [COVID-19]05-24-2021 EpisodicComment on above:Problem List clean-up per request of Phys. EHR Cmte Viral infection (1 source)Disease caused by nCoV; Translations: [COVID-19] Past or Other Problems Problem ClassificationProblemDateDocumented DateEpisodic/ChronicBlindness and vision defects (1 source)Visual disturbance; Translations: [Unspecified visual disturbance] Onset: 34-98-7551CmgdeqjdYagsctpm; including migraine (1 source)Headache; Translations: [Headache]Onset: 52-30-0581RnihtbosFgwbx connective tissue disease (1 source)Pain in limb; Translations: [Pain in soft tissues of limb]Onset: 85-99-1911TjcanlubRuseg female genital disorders (1 source)Dysplasia of cervix; Translations: [Dysplasia of cervix uteri, unspecified]Onset: 62-88-4122HoahezjwFwife upper respiratory infections (1 source)Acute maxillary sinusitis; Translations: [Acute recurrent maxillary sinusitis]Onset: 33-31-0453WiwrfpdeXilydmom codes; unclassified (1 source)Asymptomatic menopausal state; Translations: [ASYMPTOMATIC MENOPAUSAL STATE]Onset: 47-35-1785NribyckjMxuhzucd codes; unclassified (1 source)Other specified health status; Translations: [Health status] Resolved: 93-46-8692JuuizlbqOkysdxebcjt; intervertebral disc disorders; other back problems (1 source)Disorder of sacrococcygeal spine; Translations: [Sacrococcygeal disorders, not elsewhere classified]Onset: 87-37-6859SrpekpoaXubwhqarcsud (1 source)Contraception care management; Translations: [Unspecified contraceptive management] Results Test NameValueInterpretationReference RangeFacilityOutside Recordson 04-08-2025 Outside [id number]#1.00[facility], MD, Cancer CenterCoding Summaryon 13-87-4311Zzxcii SummaryHTMLBase 64 RgyotyywBYg2mKv+PGhlYWQ+LY7NXZHzS22ktTLwcE0tM8ISTUhDJbadDLRFCKjFVaNoskRdDW3mqWJg ZXJu [file] ZTo (more content not included)...NormalMagruder HospitalIGP,APTIMA HPV,AGE GDLN on 40-80-0346VSH GDLN ACOG TESTINGNote.NOMS HealthcareComment on above:TESTS RESULT FLAG UNITS REF RANGE LAB Clinician Provided Cytology Information Source.............Cervix No. of containers..01 ThinPrep Vial Age Peggy OREILLY Berta... FLAG LEGEND: L-Low Normal,H-High Normal,LL-Alert Low,HH-Alert High <-Panic Low,>-Panic High,A-Abnormal,AA-Critical Abnormal Performed at: 01 =[address] [address] Verna Velez MD, HPV APTIMANegativeNegativeNOMS HealthcareComment on above:This nucleic acid amplification test detects fourteen high- risk HPV types (16,18,31,33,35,39,45,51,52,56,58,59,66,68) without differentiation. Performed at: =[address] [id number] Propeller Tester: Verna Velez MD, Phone: [phone] Performed at: [address] [id number] Propeller Tester: Verna Velez MD, Phone: [phone] IGP, APTIMA HPV, RFX 16/18,45Note.NOMS HealthcareComment on above:TESTS RESULT FLAG UNITS REF RANGE LAB DIAGNOSIS: 02 NEGATIVE FOR INTRAEPITHELIAL LESION OR MALIGNANCY. CELLULAR CHANGES ASSOCIATED WITH ATROPHY ARE PRESENT. Specimen adequacy: 02 Satisfactory for evaluation. Endocervical component may not be distinguished in cases of atrophy. Performed by: 02 Izabella Braswell Civil Geotechnical Engineer ([facility]) . 02 Note: Note 02 The Pap [...] <-Panic Low,>-Panic High,A-Abnormal,AA-Critical Abnormal Performed at: [address] [address] Verna Velez MD, BRUSH-SPATULA CERVIX CLINISYNCNOMS HealthcareUS LE Venous Duplex Lefton 86-93-8054PW LE Venous Duplex LeftEXAMINATION: US LE Venous Duplex Left HISTORY: Phlebitis and thrombophlebitis of superficial vessels of left lower extremity COMPARISON: Prior procedure. FINDINGS: REGION: Left lower extremity THROMBI: Heat induced and/or microfoam chemical ablation induced thrombus within superficial veins as expected. . Significant reduction in size of thrombus within posterior tibial vein, now 2.4 cm. Small amount of superficial thrombus within distal great saphenous vein extending into ankle/dorsum of foot. COMPRESSIBILITY: Non-compressibility of treated veins as expected. FLOW: Absent flow within the treated veins as expected. Normal waveform and antegrade flow within deep system. OTHER: None. IMPRESSION: 1. Small amount of residual deep vein thrombus within proximal posterior tibial vein, 2.4 cm (previously 6 cm). 2. Stable small amount of thrombus within superficial great saphenous vein overlying the ankle and dorsum of foot. Final Dictated by: Janiya Hayes MD Dictated DT/TM: 03/19/25 3:55 Signed (Electronic Signature): Janiya Hayes MD 03/19/25 3:59 pm Technologist: [facility] papilloma virus 16+18+31+33+35+39+45+51+52+56+58+59+66+68 DNA [Presence] in CerOrdered By: Luis Angel Esquivel on 95-18-1887PRL 16+18+31+33+35+39+45+51+52+56+58+59+66+68 DNA Probe+sig amp Ql (Cvx)NegativeNegativeGenesis HospitalComment on above: This nucleic acid amplification test detects fourteen high-risk HPV types (16,18,31,33,35,39,45,51,52,56,58,59,66,68)without differentiation.Performed at: = - [facility] [id number] Director: Verna Velez MD, Phone: [phone] at: [facility] [id number] Director: Verna Velez MD, Phone: [phone] Panel InformationOrdered By: Luis Angel Esquivel on 34-42-0823BXY High Risk Other CommentNote.Genesis HospitalComment on above:TESTS RESULT FLAG UNITS REF RANGE LAB DIAGNOSIS: 02 NEGATIVE FOR INTRAEPITHELIAL LESION OR MALIGNANCY. CELLULAR CHANGES ASSOCIATED WITH ATROPHY ARE PRESENT.Specimen adequacy: 02 Satisfactory for evaluation. Endocervical component may not bedistinguished in cases of atrophy.Performed by: 02 Izabella Braswell, Civil Geotechnical Engineer ([facility]). 02Note: Note 02 The Pap smear is a screening test designed to aid in the detection of premalignant and malignant conditions of the uterine cervix. It is not a diagnostic procedure and should not be used as the sole means of detecting cervical cancer. Both false-positive and false- negative reports do occur.Test Methodology: Note 02 This liquid based ThinPrep(R) pap test was screened with the use of an image guidedsystem.HPV Genotype Reflex Note 02 Criteria not met, HPV Genotype not performed. FLAG LEGEND: L-Low Normal,H-High Normal,LL-Alert Low,HH-Alert High <-Panic Low,>- Panic High,A-Abnormal,AA-Critical Abnormal Performed at:02 [facility] [address], [id number] Verna Velez MD, Naiamqxxv Lab Test Patient AgeNote.Genesis HospitalComment on above: TESTS RESULT FLAG UNITS REF RANGE LAB Clinician Provided Cytology Information Source.............Cervix No. of containers..01 ThinPrep VialAge [place] AFIA Berta... 30-65 FLAG LEGEND: L- Low Normal,H-High Normal,LL-Alert Low,HH-Alert High <-Panic Low,>-Panic High,A-Abnormal,AA-Critical Abnormal Performed at:01 =[address] [facility] [place] [address] Verna Velez MD, [place] Summaryon 27-63-6834Fqizfa SummaryTIMPANOGOS REGIONAL HOSPITALBase 64 LiqneuqyHAm5cRf+PGhlYWQ+CF8QFUOrN70doKStyR6oI4NDNVzXNeciBZQDMEbYQnPbomRmOR4piOFe ZXJu [file] ZTo (more content not included)...[facility] LE Venous Duplex Lefton 10-02-1747ZZ LE Venous Duplex LeftEXAMINATION: US LE Venous Duplex Left HISTORY: Phlebitis [...] posterior tibial vein. Final Dictated by: Janiya Hayes MD Dictated DT/TM: 02/26/25 4:36 Signed (Electronic Signature): Janiya Hayes MD 02/26/25 4:38 pm Technologist: [facility] HospitalCoen[facility] Summaryon 76-84-1144Wuhrjd Summary HTMLBase 64 KdxyimeuWAf4zPs+PGhlYWQ+IU3RSCGpO08oaWZmiX6dU4CJFYoFXgoeCNPTGChKFgRvezCmPJ7kwBPx ZXJu [file] ZTo (more content not included)...[facility] HospitalPatient Handouton 33-84-6035Frxlonn HandoutRadiology Sclerotherapy, Care After After sclerotherapy, it is [...] how to take care of your injection site.Make sure you: ? Wash your hands with soap and water for at least 20 seconds before and after you change your bandage. If you cannot use soap and water, use hand per diem registered nurse. ? Change your bandage. ? Check the area around any injection sites (injection areas) every day for signs of infection. Check for: ? More redness, swelling, or pain. ? More fluid or blood. ? Warmth. ? Pus or a bad smell. Activity ? Do light exercise every day, as told by your health care provider. Walking or riding a stationarybike may be good options for you. ? Return to your normal activities when your health care provider says that it is safe. Ask what activities are safe for you. General instructions ? Take edwp-woa-ssjwduh and prescription medicines only as told by [...] provider. Document Revised: 09/16/2022 Document Reviewed: 09/16/2022 [employer] Patient Education ? 2024 Language Logistics.[facility] HospitalCoding Summaryon 94-32-6293Oaqbny SummaryHTMLBase 64 VvztlqfiFWd8wVv+PGhlYWQ+TV4LNUVcL28vzPBdnK0hP9ZFYIkHSatsTWCURAiIKuXvqyHaMN2rmPBt ZXJu [file] ZTo (more content not included)...NormalMedina HospitalUS LE Venous Duplex Righton 43-57-3760LV LE Venous Duplex RightEXAMINATION: US LE Venous Duplex Right HISTORY: Phlebitis [...] branch saphenous varicosities. Final Dictated by: Janiya Hayes MD Dictated DT/TM: 02/07/25 4:02 Signed (Electronic Signature): Janiya Hayes MD 02/07/25 4:03 pm Technologist: [facility] HospitalCoen[facility] Summaryon 40-97-1387Wpmcww Summary HTMLBase 64 UjbqimfxUUq6rWb+PGhlYWQ+DN2SFLFeU79jnREdlZ2pL7EFMIzWXsuzAKUCVBmNPxSupiAwSP9jhCCj ZXJu [file] ZTo (more content not included)...[facility] HospitalPatient Handouton 98-23-8962Ekoscoj HandoutRadiology Sclerotherapy, Care After After sclerotherapy, it is [...] how to take care of your injection site.Make sure you: ? Wash your hands with soap and water for at least 20 seconds before and after you change your bandage. If you cannot use soap and water, use hand per diem registered nurse. ? Change your bandage. ? Check the area around any injection sites (injection areas) every day for signs of infection. Check for: ? More redness, swelling, or pain. ? More fluid or blood. ? Warmth. ? Pus or a bad smell. Activity ? Do light exercise every day, as told by your health care provider. Walking or riding a stationarybike may be good options for you. ? Return to your normal activities when your health care provider says that it is safe. Ask what activities are safe for you. General instructions ? Take fill-ddx-vgftscb and prescription medicines only as told by [...] provider. Document Revised: 09/16/2022 Document Reviewed: 09/16/2022 [employer] Patient Education ? 2024 [employer].[facility] HospitalCoding Summaryon 64-27-9857Dbxxkk SummaryHTMLBase 64 MvfqdmtyIVu7iLw+PGhlYWQ+FY2FCAPfL00mkMHvqI2nP3FHZFlHQyxwPYNMBZlICcLrdvMnJC1mcERb ZXJu [file] ZTo (more content not included)...NormalUniversity [facility] Centeruder HospitalCoding SummaryHTMLBase 64 PjjqcdypLBw2sAb+PGhlYWQ+GV7WSXLzZ17cbECdjG4oR2BPDEiLNymvPDFMPHfCYaDwhfRtQK9taZJr ZXJu [file] ZTo (more content not included)...[facility] LE Venous Duplex Lefton 40-28-0187PN LE Venous Duplex LeftEXAMINATION: US LE Venous Duplex Left HISTORY: Phlebitis [...] accessory saphenous vein. Final Dictated by: Janiya Hayes MD Dictated DT/TM: 01/22/25 3:37 Signed (Electronic Signature): Janiya Hayes MD 01/22/25 3:38 pm Technologist: [facility] HospitalCoding Summaryon 63-00-0593Vixshy Summary HTMLBase 64 IiwlscuqINo2yZv+PGhlYWQ+MY3VWFBpH49rwCVriH5fD7KCIJxTLntyZTNAZJqROwSojkDxSK3hkROo ZXJu [file] ZTo (more content not included)...[facility] HospitalUS Endovenous Ablation 1st Veinon 28-96-1570BR Endovenous Ablation 1st VeinEXAMINATION: US Endovenous Ablation 1st Vein HISTORY: Varicose [...] the procedure well. Final Dictated by: Janiya Hayes MD Dictated DT/TM: 01/18/25 6:21 Signed (Electronic Signature): Janiya Hayes MD 01/18/25 6:22 am Technologist: [facility] HospitalCoencompass health rehabilitation hospital [facility] Summaryon 73-14-5157Hkmvob Summary HTMLBase 64 NffbybufJWn4bIg+PGhlYWQ+YY1FSDGpB21naNAqtY7xA5CHSOdLEhpyNNDCWTxZXfSyglPuKZ7wwTNb ZXJu [file] ZTo (more content not included)...[facility] HospitalUS LE Venous Duplex Righton 41-09-2417UF LE Venous Duplex RightEXAMINATION: US LE Venous Duplex Right HISTORY: Phlebitis [...] right great saphenous vein. Final Dictated by: Seda Urias MD Dictated DT/TM: 01/10/25 4:01 Signed (Electronic Signature): Seda Urias MD 01/10/25 4:16 pm Technologist: [facility] HospitalCoding Summaryon 39-96-2166Szgmrc Summary HTMLBase 64 AirjqfoaYCc3vVu+PGhlYWQ+NC1NKNRwX13ddIMvlL6uS2UFXLoIUkwbGANRWLzONpMxitAxDJ9anAJp ZXJu [file] ZTo (more content not included)...[facility] HospitalCoding Summaryon 97-24-5727Jkcvag SummaryHTMLBase 64 NjzpmheoDPq3uQb+PGhlYWQ+DZ4DFGSvQ24qhHRxkA4sX7DGDQnFWpfdCTBCSKcTQyBwyjUnSL0rdUUx ZXJu [file] ZTo (more content not included)...NormalMedina HospitalUS Endovenous Ablation 1st Veinon 09-06-2276QS Endovenous Ablation 1st VeinEXAMINATION: US Endovenous Ablation 1st Vein HISTORY: Varicose [...] the procedure well. Final Dictated by: Janiya Hayes MD Dictated DT/TM: 01/03/25 10:57 Signed (Electronic Signature): Janiya Hayes MD 01/03/25 11:07 a Technologist: [facility] LE Venous Duplex Lefton 71-52-2562OJ LE Venous Duplex LeftEXAMINATION: US LE Venous Duplex Left HISTORY: Phlebitis [...] DT/TM: 01/01/25 8:24 Signed (Electronic Signature): Seda Urias MD 01/01/25 8:26 am Technologist: [facility] Endovenous Ablation 1st Veinon 63-09-8086AA Endovenous Ablation 1st VeinEXAMINATION: US Endovenous Ablation 1st Vein HISTORY: Varicose [...] the procedure well. Final Dictated by: Janiya Hayes MD Dictated DT/TM: 12/26/24 5:55 Signed (Electronic Signature): Janiya Hayes MD 12/26/24 6:53 am Technologist: [facility] HospitalOutslaughlin memorial hospital Recordson 84-11-3084Ikgzrze [id number]#1.00OTGTIFFFort Hamilton HospitalCoding Summaryon 60-85-8193Hfpvxh SummaryMLBase 64 EksikmxaFUv2gFg+PGhlYWQ+IY9AKNRpF50ebPHfsY0aF6NUMCsRRbzoYVIQNHoOKsWdyhJfJP6ovELm ZXJu [file] bGF (more content not included)...[facility] HospitalConsent Forms - Physicianon 34-12-0943Spzddbv Forms - Physician [id number]#1.00OTGTIFFNoThe Surgical Hospital at SouthwoodsUS Venous Insufficiency Bilaton 39-65-1072UC Venous Insufficiency BilatEXAMINATION: US Venous Insufficiency Bilat HISTORY: Varicose veins [...] Thrombi: No acute or chronic thrombus visualized. Compressibility:Normal. Flow: Mild deep venous reflux. Perforators: Distal [...] Thrombi: No acute or chronic thrombus visualized. Compressibility:Normal. Flow: Normal. Perforators: None Tech note: Varicose veins: Mid medial thigh 5.0 mm with 1.7 seconds reflux. CONCLUSION: 1. 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 2. 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 Final Dictated by: Janiya Hayes MD Dictated DT/TM: 11/28/24 4:21 Signed (Electronic Signature): Janiya Hayes MD 11/28/24 4:23 pm Technologist: [facility] HospitalHCG ( test) Ql (U)on 11-22-2024 Interpretation and review of laboratory resultsNoLankenau Medical CenterPre Test, UrNegativeNegativeCHAKASaint John's Aurora Community Hospital HealthcarePatient Handouton 11-12-2024 Patient HandoutCardiovascular Varicose Veins Varicose veins are veins that [...] symptoms may get worse when you sit orstand for long periods of time. How is [...] to prevent blood clots and reduce swelling inthe legs. ? Raising (elevating) the legs when resting. ? Losing weight. ? Exercising regularly. If you have persistent symptoms or want to improve the way your varicose veins look, you may chooseto have a procedure to close the varicose [...] these instructions at home: Medicines ? Take kfpo-pzy-esjftjp and prescription medicines only as told by [...] take short walks every 1?2 hours. This isimportant to improve blood flow and breathing. Ask [...] provider. Do not wear other kinds of tightclothing around your legs, pelvis, or waist. ? [...] trouble breathing. ? Y (more content not included)...NormalCincinnati Children[facility] HospitalIGP,APTIMA HPV,AGE GDLN on 71-69-6914ZJJ GDLN ACOG TESTINGNote.NOMS HealthcareComment on above:TESTS RESULT FLAG UNITS REF RANGE LAB Clinician Provided Cytology Information Source.............Cervix;Endocervix No. of containers..01 ThinPrep Vial Age Algo ACOG Berta... FLAG LEGEND: L-Low Normal,H-High Normal,LL-Alert Low,HH-Alert High <-Panic Low,>-Panic High,A-Abnormal,AA-Critical Abnormal Performed at: 01 =[facility] Yemi [address] [place], [place] [address] [address] Verna Velez MD, HPV APTIMANegativeNegativeNOMS HealthcareComment on above:This nucleic acid amplification test detects fourteen high- risk HPV types (16,18,31,33,35,39,45,51,52,56,58,59,66,68) without differentiation. Performed at: = - [address] [id number] Propeller Tester: Verna Velez MD, Phone: [phone] Performed at: - [address] [id number] Propeller Tester: Verna Velez MD, Phone: [phone] IGP, APTIMA HPV, RFX 16/18,45Note.NOMS HealthcareComment on above:TESTS RESULT FLAG UNITS REF RANGE LAB DIAGNOSIS: 02 NEGATIVE FOR INTRAEPITHELIAL LESION OR MALIGNANCY. CELLULAR CHANGES ASSOCIATED WITH ATROPHY ARE PRESENT. Specimen adequacy: 02 Satisfactory for evaluation. Endocervical and/or squamous metaplastic cells (endocervical component) are present. Performed by: Jeff Farooq, Chlorinator Operator . 02 Note: Note 02 The [...] <-Panic Low,>-Panic High,A-Abnormal,AA-Critical Abnormal Performed at: 02 [facility] [address] Verna Velez MD, BRUSH-SPATULA CERVIX ENDOCERVIX CLINISYNCNOSoutheast Missouri Hospital papilloma virus 16+18+31+33+35+39+45+51+52+56+58+59+66+68 DNA [Presence] in Damien 98-41-3429LAS 16+18+31+33+35+39+45+51+52+56+58+59+66+68 DNA Probe+sig amp Ql (Cvx)Negative NegativeGenesis HospitalComment on above:This nucleic acid amplification test detects fourteen high-risk HPV types (16,18,31,33,35,39,45,51,52,56,58,59,66,68)without differentiation.Performed at: = - Labco[address] [id number] Director: Verna Velez MD, Phone: [phone] at: [facility] Labco[address] [id number] Director: Verna Velez MD, Phone: [phone] Panel Informationon 04-05-4767XCB High Risk Other CommentNote. Genesis HospitalComment on above:TESTS RESULT FLAG UNITS REF RANGE LAB DIAGNOSIS: 02 NEGATIVE FOR INTRAEPITHELIAL LESION OR MALIGNANCY. CELLULAR CHANGES ASSOCIATED WITH ATROPHY ARE PRESENT.Specimen adequacy: 02 Satisfactory for evaluation. Endocervical and/or squamous metaplastic cells (endocervical component) are present.Performed by: 02 Beatrice Farooq Chlorinator Operator. 02Note: Note 02 The Pap smear [...] Low,HH-Alert High <-Panic Low,>-Panic High,A-Abnormal,AA-Critical Abnormal Performed at:02 [facility] [address] [address] Verna Velez MD, Rfxgwcuby Lab Test Patient Nolvia.Genesis HospitalComment on above:TESTS RESULT FLAG UNITS REF RANGE LAB Clinician Provided Cytology Information Source.............Cervix;Endocervix No. of containers..01 ThinPrep VialAge Peggy OREILLY Berta... FLAG LEGEND: L-Low Normal,H-High Normal,LL-Alert Low,HH-Alert High <-Panic Low,>-Panic High,A- Abnormal,AA-Critical Abnormal Performed a t:01 =G Lab[facility] [address] Verna Velez MD, RF elbow LT min 3V*on 96-31-0168TG elbow LT min 3V*[facility] [address] [place] [address] XRay Report Signed Patient: Julia Quispe MR#: [id number] 74 : 1970 Acct:[id number] Age/Sex: 53 / F ADM Date: 03/01/24 Loc: [facility] Room: Type: [facility] Attending Dr: Pasha Kinney DO Copies to: [...] Nikole Macdonald M.D.03/01/2024 3:31 PM Dictation Location: [place] [address] Transcribed By: [facility] 03/01/24 153 Dictated By: Nikole Macdonald MD 03/01/24 153 Signed By: 03/01/24 1531[facility] [place] [facility] Physician GroupHCG ( test) Ql (U)on 92-91-1769Lozflgdjffbpzu and review of laboratory resultsNormalRanken [facility] Special[facility] Preg Test, UrNegativeNOFormerly [facility] AUTO DIFFon 10-27-2022 BASO #0.0 103/ulNormal0.0-0.1The [facility] HospitalComment on above:Performed By: #### CBC #### [facility] [address] [address] [address] Neeta NunezBasophils/100 WBC (Bld)0.3 %Normal0.2-2.0The [facility] Comment on above:Performed By: #### CBC #### [facility] [address] [address] [address] Neeta Barker #0.0 103/ulNormal0.0-0.7The [facility] HospitalComment on above: Performed By: #### CBC #### [facility] [address] [address] [address] Neeta Boudreauxosinophils/100 WBC (Bld)0.3 %Critically low0.9-7.0The [facility] Hospitalment on above:Performed By: #### CBC #### [facility] [address] [address] [address] Neeta Boudreauxrythrocyte distribution width (RBC) [Ratio]12.9 %Weqevj99.0-15.0 The [facility] Hospitalment on above:Performed By: #### CBC #### [facility] [address] [address] [address] Neeta NunezHematocrit (Bld) [Volume fraction]44.3 %Yciira26.0-48.0The [facility] Hospitalment on above:Performed By: #### CBC #### [facility] [address] [address] [address] Neeta NunezHemoglobin (Bld) [Mass/Vol]14.6 g/nBTdlprr80.0-16.0The [facility] Hospitalment on above:Performed By: #### CBC #### [facility] [address] [address] [address] Neeta Seymour #0.01 10e3/ulNormal0.00-0.03The [place] HospitalComment on above:Performed By: #### CBC #### [facility] [address] [address] [address] Neeta Seymour %0.1 %Normal0.0-0.5The [facility] on above: Performed By: #### CBC #### [facility] [address] [address] [address] Neeta Dash #2.4 103/ulNormal1.2-3.8The [facility] HospitalComment on above:Performed By: #### CBC #### [facility] [address] [place] [address] Dr. Neeta Romerohocytes/100 WBC (Bld)32.5 %Znmeit69.5-60.0The [facility] HospitalComment on above:Performed By: #### CBC #### [facility] [address] [place] [address] Dr. Neeta ShafferUAL DIFF REQNONormalThe [facility] HospitalComment on above: Performed By: #### CBC #### [facility] [address] [place] [address] Dr. Neeta Lujan (RBC) [Entitic mass]31.7 opYjnozv98.7-34.0The [facility] on above:Performed By: #### CBC #### [facility] [address] [place] [address] Dr. Neeta Lujan (RBC) [Mass/Vol]33.0 g/yNXjiibw34.9-35.2The [facility] HospitalComment on above:Performed By: #### CBC #### [facility] [address] [place] [address] Dr. Neeta Lujan (RBC) [Entitic vol]96.1 aENesxkc04.0-99.0The [facility] on above:Performed By: #### CBC #### [facility] [address] [place] [address] Dr. Neeta Crawford #0.4 103/ulNormal0.3-0.8The [place] HospitalComment on above:Performed By: #### CBC #### [facility] [address] [address] [address] Neeta Martinezocytes/100 WBC (Bld)5.3 %Normal1.7-12.0The [facility] Comment on above:Performed By: #### CBC #### [facility] [address] [place] [address] Dr. Neeta CoffeyUT #4.6 103/ulNormal1.4-6.5The [facility] HospitalComment on above:Performed By: #### CBC #### [facility] [address] [place] [address] Dr. Neeta Coffeyutrophils/100 WBC (Bld)61.5 %Kzzwnk03.0-75.0The [facility] HospitalComment on above:Performed By: #### CBC #### [facility] [address] [place] [address] Dr. Neeta NunezPlatelet mean volume (Bld) [Entitic vol]8.6 fLCritically low 9.5-13.5The [facility] HospitalComment on above:Performed By: #### CBC #### [facility] [address] [place] [address] Dr. Neeta NunezPLT278 103/tmQzrkwn077-221Nxx [facility] Hospitalment on above: Performed By: #### CBC #### [facility] [address] [place] [address] Dr. Neeta NunezRBC4.61 106/ulNormal4.20-5.40The [facility] Hospitalment on above:Performed By: #### CBC #### [facility] [address] [place] [address] Dr. Neeta NunezWBC7.4 103/ulNormal4.0-11.0The [facility] on above: Performed By: #### CBC #### [facility] [address] [place] [address] Dr. Neeta Stroud-DIMERon 14-67-3299Z-DIMER0.22 mg/L FEUNormal<=0.59The Lyn HospitalComment on above:Performed By: #### DDIM #### [facility] [address] [address] [address] Neeta NunezD-DIMER COMMENTSSEE BELOWNormalThMercy Health West HospitalComment on above:Result Comment: Increases in D-Dimer concentration observed with thromboembolic events [...] stress, and generalized hospitalization. Performed By: #### DDIM #### [facility] [address] [place] [address] Dr. Neeta Dooley T4on 66-34-3032Ufze T4 [Mass/Vol]0.94 ng/dLNormal0.76-1.46 The [facility] HospitalComment on above:Performed By: #### FT4 #### [facility] [address] [place] [address] Dr. Neeta NunezPROF CHEM 8 (BAS METB)on 71-67-0935Emzse gap [Moles/Vol]13.2 mmol/LNormalCincinnati Children's Hospital [facility] on above:Performed By: #### TSH, BMP #### [facility] [address] [place] [address] Dr. Neeta NunezCalcium [Mass/Vol]9.8 mg/dLNormal8.5-10.1[facility] Comment on above:Performed By: #### TSH, BMP #### [facility] [address] [place] [address] Dr. Neeta NunezChloride [Moles/Vol]102 mmol/TNbtxao97-026Pfb [facility] Comment on above:Performed By: #### TSH, BMP #### [facility] [address] [place] [address] Dr. Neeta NunezCO2 [Moles/Vol]28.2 mmol/JYomcia55.0-32.0The [facility] Comment on above:Performed By: #### TSH, BMP #### [facility] [address] [address] [address] Neeta NunezCreatinine [Mass/Vol]0.88 mg/dLNormal0.55-1.02[facility] Health SystemComment on above:Performed By: #### TSH, BMP #### [facility] [address] [address] [address] Neeta BoudreauxGFR-AF MAURITANIAN>60Normal>=60The [facility] HospitalComment on above:Performed By: #### TSH, BMP #### [facility] [address] [address] [address] Neeta BoudreauxGFR-NON AF MAURITANIAN>60Normal>=60The [facility] HospitalComment on above:Performed By: #### TSH, BMP #### [facility] [address] [address] [address] Neeta NunezGlucose [Mass/Vol]103 mg/vXDlyyod91-708Ica [facility] Comment on above:Performed By: #### TSH, BMP #### [facility] [address] [address] [address] Neeta NunezPotassium [Moles/Vol]3.4 mmol/LCritically low3.5-5.1The [facility] HospitalComment on above:Performed By: #### TSH, BMP #### [facility] [address] [address] [address] Neeta NunezSodium [Moles/Vol]140 mmol/LZtywbe421-669Drf [facility] Comment on above:Performed By: #### TSH, BMP #### [facility] [address] [address] [address] Neeta NunezUrea nitrogen [Mass/Vol]21.0 mg/dLCritically high7.0-18.0The [facility] HospitalComment on above:Performed By: #### TSH, BMP #### [facility] [address] [address] [address] Neeta English nitrogen/Creatinine [Mass ratio]23.9 mg/mgNormalThe [facility] HospitalComment on above:Performed By: #### TSH, BMP #### [facility] [address] [address] [address] Neeta Urrutia 93-26-0349UVM3.980 uIU/mLNormal0.358-3.740The [facility] HospitalComment on above:Performed By: #### TSH, BMP #### [facility] [id number] Neeta NunezMG MAMM SCREEN 3D KATARINA CADon 92-99-6671RR MAMM SCREEN 3D KATARINA CAD Patient: JULIA QUISPE Exam Date: 05/07/2022 : 1970 Gender:F Ordering : DR LUIS ANGEL ESQUIVEL . Admission #: [id number] Family : Order #: [id number] CLICK HERE TO VIEW EXAM RADIOLOGY REPORT [...] Treatments None Family Cancers None LOCATION: [facility] BREAST COMPOSITION: Heterogeneously dense,which may obscure [...] by: Seda Urias MD on 05/07/2022 at 09:15NormalUniversity Hospitals Health SystemXR DEXA BONE DENSITYon 29-11-4046RQ DEXA BONE DENSITYEXAMINATION: XR DEXA BONE DENSITY, 05/07/2022 6:50 AM [...] Electronically authenticated by: JANIYA HAYES Date: 2022-05-07 07:27[facility] - TrumbullAbstracton [id number] Julia Quispe 1970 F Date Provider Department Center 02/25/2022 [id number]JNRBLAN[facility] Comprehensiv Family History Problem Relation Age of Onset Atrial fibrillation Mother Atrial fibrillation Father Family Status - Relation Status Age at Mother FatherNormalUniversTriHealth Bet[facility] ACOG PANEL 2: 30 to 65on 02-05-2022..NormalThe [facility] HospitalComment on above:Result Comment: Performed at: WBPerformed By: #### [id number] #### [facility] [address] [place] [address] Dr. Neeta Ashby Gdln ACOG Otmxidw02-90VlmvkqIubGalion Community HospitalComment on above:Performed By: #### [id number] #### [facility] [address] [place] [address] Dr. Neeta NunezDIAGNOSIS:CommentSelect Medical Specialty Hospital - TrumbullComment on above: Result Comment: NEGATIVE FOR INTRAEPITHELIAL LESION OR MALIGNANCY. CELLULAR CHANGES ASSOCIATED WITH ATROPHY ARE PRESENT. Performed at: WBPerformed By: #### [id number] #### [facility] [address] [place] [address] Dr. Neeta NunezHPV AptimaNegativeNormalNegativeUniversity Hospitals Health SystemComment on above:Result Comment: This nucleic acid amplification test detects fourteen high-risk HPV types (16,18,31,33,35,39,45,51,52,56,58,59,66,68) without differentiation. Performed at: =GPerformed By: #### [id number] #### [facility] [address] [place] [address] Dr. Neeta NunezMethodology:CommentRegency Hospital Cleveland West on above: Result Comment: This liquid based ThinPrep(R) pap test was screened with the use of an image guided system. Performed at: WBPerformed By: #### [id number] #### [facility] [address] [place] [address] Dr. Neeta NunezNote:CommentNoAshtabula General Hospital on above:Result Comment: The Pap smear is a screening test designed to aid in the detection of premalignant and malignant conditions of the uterine cervix. It is not a diagnostic procedure and should not be used as the sole means of detecting cervical cancer. Both false-positive and false-negative reports do occur. . Performed at: WBPerformed By: #### [id number] #### [facility] [address] [place] [address] Dr. Neeta NunezPerformed by:CommentNoAshtabula General Hospital on above: Result Comment: Priscilla White, Chlorinator Operator (ASCP) Performed at: WBPerformed By: #### [id number] #### [place] [address] Dr[address] Neeta NunezSpecimen adequacy:CommentRegency Hospital Cleveland West on above:Result Comment: Satisfactory for evaluation. Endocervical component may not be distinguished in cases of atrophy. Performed at: WBPerformed By: #### [id number] #### [facility] [address] [place] [address] Dr. Neeta NunezBASHONNA METABOLIC PANELon 65-78-1693Icvccbw [Mass/Vol]9.1 mg/dL Normal8.6-10.3The [facility] Orrville HospitalComment on above:Order Comment: No: Do not add to previous drawPerformed By: #### 89548, 81590, 09184 #### [facility] [address] [place] [address], USAChloride [Moles/Vol]105 mmol/DKajsdl91-209Lqs [facility] HospitalComment on above:Order Comment: No: Do not add to previous drawPerformed By: #### 30395, 68256, 56635 #### [facility] [address] [place] [address], [place]ACO2 [Moles/Vol]26 mmol/WEaoppu51-03Nik [facility] HospitalComment on above:Order Comment: No: Do not add to previous draw Performed By: #### 86190, 91625, 42259 #### [facility] [address] [place] [address], USACreatinine [Mass/Vol]0.68 mg/dLNormal0.60-1.20The [facility] HospitalComment on above:Order Comment: No: Do not add to previous drawPerformed By: #### 13389, 40892, 74365 #### [facility] [address] [place] [address], USAGFR/1.73 sq M.predicted among blacks MDRD (S/P/Bld) [Vol rate/Area]mL/min/{1.73_m2}Normal>60The [facility] Comment on above:Order Comment: No: Do not add to previous drawPerformed By: #### 86441, 78556, 36910 #### [facility] [address] [place] [address], USAGFR/1.73 sq M.predicted among non-blacks MDRD (S/P/Bld) [Vol rate/Area]mL/min/{1.73_m2}Normal>60The [facility] Comment on above:Order Comment: No: Do not add to previous drawPerformed By: #### 76994, 82774, 66312 #### [facility] [address] [place] [address], USAGlucose [Mass/Vol]90 mg/cHWglait99-402Lco [facility] HospitalComment on above:Order Comment: No: Do not add to previous drawPerformed By: #### 43046, 40587, 26927 #### [facility] [address] [place] [address], USAPotassium [Moles/Vol]4.0 mmol/LNormal3.5-5.1The [facility] HospitalComment on above:Order Comment: No: Do not add to previous drawPerformed By: #### 15625, 54169, 99499 #### [facility] [address] [place] [address], USASodium [Moles/Vol]137 mmol/PYubabq861-452Vjx [facility] HospitalComment on above:Order Comment: No: Do not add to previous drawPerformed By: #### 31312, 58272, 90416 #### [facility] [address] [place] [address], USAUrea nitrogen [Mass/Vol]7 mg/dLNormal7-25The [facility] HospitalComment on above:Order Comment: No: Do not add to previous drawPerformed By: #### 67894, 65435, 82033 #### [facility] [address] [place] [address], USACBC COMPLETE BLOOD COUNTon 58-39-1826Pfvhmbmxang distribution width (RBC) [Ratio]13.6 %Uvqcdg23.5-15.0The [facility] HospitalComment on above:Order Comment: RLQ PERIHEPATIC FLUID DRAINAGE Performed By: #### 05511 #### [facility] [address] [place] [address], USAHematocrit (Bld) [Volume fraction]29.5 %Low36.0-45.0The [facility] HospitalComment on above:Order Comment: RLQ PERIHEPATIC FLUID DRAINAGEPerformed By: #### 40617 #### [facility] [address] [place] [address], USAHemoglobin (Bld) [Mass/Vol]8.7 g/dLLow12.0-15.0The [facility] HospitalComment on above:Order Comment: RLQ PERIHEPATIC FLUID DRAINAGEPerformed By: #### 59062 #### [facility] [address] [place] [address], [facility] ([place]BC) [Entitic mass]28.5 dqJmcrrt99.0-33.0The [facility] HospitalComment on above:Order Comment: RLQ PERIHEPATIC FLUID DRAINAGEPerformed By: #### [id number] #### [facility] [address] [place] [address], [facility]ENTERMCHC (RBC) [Mass/Vol]29.5 g/dLLow32.0-35.0The [facility] HospitalComment on above:Order Comment: RLQ PERIHEPATIC FLUID DRAINAGEPerformed By: #### 74137 #### [facility] [address] [place] [address], [facility] CENTERMCV (RBC) [Entitic vol]96.7 nZZfocuw07.0-98.0The [facility] HospitalComment on above:Order Comment: RLQ PERIHEPATIC FLUID DRAINAGEPerformed By: #### 11520 #### [facility] [address] [place] [address], USANucleated RBC/100 WBC (Bld) [Ratio]0 %Normal0-0The [facility] HospitalComment on above:Order Comment: RLQ PERIHEPATIC FLUID DRAINAGEPerformed By: #### 01853 #### [facility] [address] [place] [address], USAPLAT SDH192 10*3/ySOjpt989-424Fat [facility] HospitalComment on above:Order Comment: RLQ PERIHEPATIC FLUID DRAINAGE Performed By: #### 11694 #### [facility] [address] [place] [address], USARBC (Bld) [#/Vol]3.05 10*6/uLLow3.80-5.00The [facility] HospitalComment on above:Order Comment: RLQ PERIHEPATIC FLUID DRAINAGEPerformed By: #### 15666 #### [facility] [address] [place] [address], USAWBC (Bld) [#/Vol]4.76 10*3/uLNormal4.00-10.60The [facility] HospitalComment on above:Order Comment: RLQ PERIHEPATIC FLUID DRAINAGEPerformed By: #### 80702 #### [facility] [address] [place] [address], USAAPTTon 50-78-4344xUTH Coag (Bld) [Time]32.4 sNormal 25.0-35.0The [facility] HospitalComment on above:Order Comment: No: Do not add to previous drawResult Comment: ALL RESULTS MUST BE INTERPRETED WITH RESPECT TO BLOOD DRAWING ARTIFACT OR DILUTION ERROR OF ANTICOAGULANT AT THE TIME OF SAMPLING. THE APTT SHOULD NOT BE USED TO MONITOR UNFRACTIONATED HEPARIN THERAPY, THIS LABORATORY NO LONGER HAS AN ESTABLISHED THERAPEUTIC RANGE BASED ON THE APTT. IT IS RECOMMENDED THAT THE UFH - HEPARIN ASSAY (ANTI-XA ACTIVITY) BE USED FOR THIS PURPOSE.Performed By: #### 88394, 58086, 37267 #### [facility] [address] [facility] [place] [address], USABASIC METABOLIC PANELon 23-10-5432Itaanfy [Mass/Vol]8.9 mg/dLNormal8.6-10.3The [facility] HospitalComment on above:Order Comment: No: Do not add to previous drawPerformed By: #### 21036, 79489, 12796 #### [facility] [address] [facility] [place] [address], USAChloride [Moles/Vol]105 mmol/QZhwjne77-586Bnb [facility] HospitalComment on above:Order Comment: No: Do not add to previous drawPerformed By: #### 71140, 19705, 96046 #### [facility] [address] [place] [address], USACO2 [Moles/Vol]25 mmol/PJvjqvc53-82Vbj [facility] HospitalComment on above:Order Comment: No: Do not add to previous draw Performed By: #### 02716, 89070, 64753 #### [facility] [address] [place] [address], USACreatinine [Mass/Vol]0.72 mg/dLNormal0.60-1.20The [facility] HospitalComment on above:Order Comment: No: Do not add to previous drawPerformed By: #### 95177, 27159, 66947 #### [facility] [address] [place] [address], USAGFR/1.73 sq M.predicted among blacks MDRD (S/P/Bld) [Vol rate/Area]mL/min/{1.73_m2}Normal>60The [facility] Comment on above:Order Comment: No: Do not add to previous drawPerformed By: #### 98680, 41291, 66516 #### [facility] [address] [place] [address], USAGFR/1.73 sq M.predicted among non-blacks MDRD (S/P/Bld) [Vol rate/Area]mL/min/{1.73_m2}Normal>60The [facility] Comment on above:Order Comment: No: Do not add to previous drawPerformed By: #### 50129, 03307, 84043 #### [facility] [address] [place] [address], USAGlucose [Mass/Vol]95 mg/mXFjugsz94-834Eso [facility] HospitalComment on above:Order Comment: No: Do not add to previous drawPerformed By: #### 70733, 96577, 07484 #### [facility] [address] [place] [address], USAPotassium [Moles/Vol]3.9 mmol/LNormal3.5-5.1The [facility] HospitalComment on above:Order Comment: No: Do not add to previous drawPerformed By: #### 52796, 60047, 12504 #### [facility] [address] [place] [address], USASodium [Moles/Vol]137 mmol/MHnzyjh502-902Kbx [facility] HospitalComment on above:Order Comment: No: Do not add to previous drawPerformed By: #### 02687, 83005, 39204 #### [facility] [address] [place] [address], USAUrea nitrogen [Mass/Vol]8 mg/dLNormal7-25The [facility] HospitalComment on above:Order Comment: No: Do not add to previous drawPerformed By: #### 85337, 48557, 91355 #### [facility] [address] [place] [address], USACBC COMPLETE BLOOD COUNTon 10-12-1337Ojliicrqyuo distribution width (RBC) [Ratio]13.6 %Enpvlp51.5-15.0The [facility] HospitalComment on above:Order Comment: RLQ PERIHEPATIC FLUID DRAINAGE Performed By: #### 14545 #### [facility] [address] [place] [address], USAHematocrit (Bld) [Volume fraction]29.6 %Low36.0-45.0The [facility] HospitalComment on above:Order Comment: RLQ PERIHEPATIC FLUID DRAINAGEPerformed By: #### 49224 #### [facility] [address] [place] [address], USAHemoglobin (Bld) [Mass/Vol]9.2 g/dLLow12.0-15.0The [facility] HospitalComment on above:Order Comment: RLQ PERIHEPATIC FLUID DRAINAGEPerformed By: #### 66836 #### [facility] [address] [place] [address], [facility] [place] (RBC) [Entitic mass]29.6 qgHsihjf60.0-33.0The [facility] HospitalComment on above:Order Comment: RLQ PERIHEPATIC FLUID DRAINAGEPerformed By: #### 28145 #### [facility] [address] [place] [address], [facility] (RBC) [Mass/Vol]31.1 g/dLLow32.0-35.0The [facility] HospitalComment on above:Order Comment: RLQ PERIHEPATIC FLUID DRAINAGEPerformed By: #### 28341 #### [facility] [address] [place] [address], [facility] [place] [place] (RBC) [Entitic vol]95.2 dXQprden53.0-98.0The [facility] HospitalComment on above:Order Comment: RLQ PERIHEPATIC FLUID DRAINAGEPerformed By: #### 83826 #### [facility] [address] [place] [address], USANucleated RBC/100 WBC (Bld) [Ratio]0 %Normal0-0The [facility] HospitalComment on above:Order Comment: RLQ PERIHEPATIC FLUID DRAINAGEPerformed By: #### 76240 #### [facility] [address] [place] [address], USAPLAT [id number] 10*3/hEZxnu413-221Dnm [facility] HospitalComment on above:Order Comment: RLQ PERIHEPATIC FLUID DRAINAGE Performed By: #### 25784 #### [facility] [address] [place] [address], USARBC (Bld) [#/Vol]3.11 10*6/uLLow3.80-5.00The [facility] HospitalComment on above:Order Comment: RLQ PERIHEPATIC FLUID DRAINAGEPerformed By: #### 19187 #### [facility] [address] [place] [address], USAWBC (Bld) [#/Vol]6.78 10*3/uLNormal4.00-10.60The [facility] HospitalComment on above:Order Comment: RLQ PERIHEPATIC FLUID DRAINAGEPerformed By: #### 26738 #### [facility] [address] [place] [address], USALIVER BATTERYon 89-63-2329Bvhtdyb [Mass/Vol]3.3 g/dLLow 3.5-5.7The [facility] HospitalComment on above:Order Comment: No: Do not add to previous drawPerformed By: #### 71209, 29814, 98082 #### [facility] [address] [place] [address], USAALKALINE QERRBW967 IU/RJlaf23-682Ghu [facility] HospitalComment on above:Order Comment: No: Do not add to previous draw Performed By: #### 34275, 31787, 85010 #### [facility] [address] [place] [address], USAALT [Catalytic activity/Vol]50 U/LNormal7-52The [facility] HospitalComment on above:Order Comment: No: Do not add to previous drawPerformed By: #### 13060, 02642, 76153 #### [facility] [address] [place] [address], USAAST [Catalytic activity/Vol]11 U/KFut00-16Qsy [facility] HospitalComment on above:Order Comment: No: Do not add to previous drawPerformed By: #### 42082, 66905, 15855 #### [facility] [address] [place] [address], USABilirubin [Mass/Vol]0.8 mg/dLNormal0.3-1.0The [facility] HospitalComment on above:Order Comment: No: Do not add to previous drawPerformed By: #### 72302, 71114, 60753 #### [facility] [address] [place] [address], USABilirubin.direct [Mass/Vol]0.2 mg/dLNormal0.0-0.2The [facility] HospitalComment on above:Order Comment: No: Do not add to previous drawPerformed By: #### 73629, 46280, 98989 #### [facility] [address] [place] [address], USAProtein [Mass/Vol]6.3 g/dLNormal6.0-8.3The [facility] HospitalComment on above:Order Comment: No: Do not add to previous drawPerformed By: #### 63422, 18631, 09294 #### [facility] [address] [place] [address], [facility] CENTERMAGNESIUM BLOODon 71-91-3287Tvmmnkdiw [Mass/Vol]2.0 mg/dL Normal1.9-2.7The [facility] HospitalComment on above:Order Comment: No: Do not add to previous drawPerformed By: #### 28065, 47655, 39540 #### [facility] [address] [place] [address], [facility] CENTERPHOSPHORUS BLOODon 27-88-2369Qxddwizue [Mass/Vol]4.2 mg/dL Normal2.5-5.0The [facility] HospitalComment on above:Order Comment: No: Do not add to previous drawPerformed By: #### 81631, 08712, 86871 #### [facility] [address] [place] [address], USAPROTHROMBIN TIMEon 69-29-8696QFV Coag (PPP) [Relative time] 1.12 {INR}Normal0.91-1.16The [facility] HospitalComment on above:Order Comment: No: Do not add to previous drawResult Comment: ACCCP RECOMMENDED INR FOR WARFARIN THERAPY ------- CONDITION INR PROPHYLAXIS OF VENOUS THROMBOSIS 2-3 (HIGH-RISK SURGERY) TREATMENT OF VENOUS THROMBOSIS 2-3 TREATMENT OF PULMONARY EMBOLISM 2-3 PREVENTION OF SYSTEMIC EMBOLISM: 2-3 ACUTE MYOCARDIAL INFARCTION TISSUE HEART VALVES VALVULAR HEART DISEASE ATRIAL FIBRILLATION RECURRENT SYSTEMIC EMBOLISM MECHANICAL HEART VALVE 2.5-3.5 FROM: ORAL ANTICOAGULANTS. MECHANISM OF ACTION, CLINICAL EFFECTIVENESS, AND OPTIMAL THERAPEUTIC RANGE. CHEST 1995;108:231S-246S.Performed By: #### 22694, 09252, 92614 #### [facility] [address] [facility]. [address] Coag (PPP) [Time]14.4 eCcesap77.3-14.8The [facility] HospitalComment on above:Order Comment: No: Do not add to previous drawResult Comment: ALL RESULTS MUST BE INTERPRETED WITH RESPECT TO BLOOD DRAWING ARTIFACT OR DILUTION ERROR OF ANTICOAGULANT AT THE TIME OF SAMPLING.Performed By: #### 06227, 02824, 16242 #### [facility] [address] [facility]. [address]*ABSCESS CULTUREon 11-05-2021*ABSCESS CULTUREClinical Report: (D) Specimen: ABSCESS Collected: 11/05/2021 13:06 Status: Final Last Updated: 11/08/2021 07:07 (1) RLQ PERIHEPATIC FLUID DRAINAGE GRAM (Final) Many Polys No Bacteria Seen ISO (Final) Escherichia coli Heavy Growth ISOLATE: Escherichia coli MILLICENT (mcg/ml) AMP./SULBAC (AMS) 8/4 Susceptible AMPICILLIN (AM) <=4 Susceptible AZTREONAM (AZM) <=2 Susceptible CEFAZOLIN (CZ) 4 Susceptible CEFTRIAXONE (SHOPPING INSPECTOR) <=1 Susceptible CIPROFLOXACIN (CIP) <=0.25 Susceptible ESBL (-/+) (ESBL) Negative GENTAMICIN (GM) <=2 Susceptible PIP/TAZO (TZP) <=2/4 Susceptible TOBRAMYCIN (TOB) <=2 Susceptible TRIMETH/SULFA (SXT) <=0.5/9.5 SusceptibleNormalThe [facility] HospitalComment on above:Order Comment: RLQ PERIHEPATIC FLUID DRAINAGEPerformed By: #### 10456 #### [facility] [address] [place] [address], [facility]*ANAEROBIC CULTUREon 11-05-2021*ANAEROBIC CULTUREClinical Report: (D) Specimen: DRAINAGE Collected: 11/05/2021 13:06 Status: Final Last Updated: 11/10/2021 09:47 (1) RLQ PERIHEPATIC FLUID DRAINAGE ISO (Final) Bacteroides fragilis Beta-Lactamase Positive ISO (Final) Eubacterium species Result changed by [email or web address] on 11/10/2021 09:47. The previous result was: ISO (Prelim) NormalThe [facility] HospitalComment on above:Order Comment: RLQ PERIHEPATIC FLUID DRAINAGEPerformed By: #### 37050 #### [facility] [address] [place] [address], [facility]ICAL CENTERAPTTon 44-33-5755uLMD Coag (Bld) [Time]28.6 sNormal 25.0-35.0The [facility] HospitalComment on above:Order Comment: No: Do not add to previous drawResult Comment: ALL RESULTS MUST BE INTERPRETED WITH RESPECT TO BLOOD DRAWING ARTIFACT OR DILUTION ERROR OF ANTICOAGULANT AT THE TIME OF SAMPLING. THE APTT SHOULD NOT BE USED TO MONITOR UNFRACTIONATED HEPARIN THERAPY, THIS LABORATORY NO LONGER HAS AN ESTABLISHED THERAPEUTIC RANGE BASED ON THE APTT. IT IS RECOMMENDED THAT THE UFH - HEPARIN ASSAY (ANTI-XA ACTIVITY) BE USED FOR THIS PURPOSE.Performed By: #### 41730, 66321, 75444 #### [facility] [address] [place] [address], [facility] CENTERBASIC METABOLIC PANELon 39-10-6478Pyzheiv [Mass/Vol]8.3 mg/dLLow8.6-10.3The [facility] HospitalComment on above:Order Comment: No: Do not add to previous drawPerformed By: #### 35478, 00095, 25741 #### [facility] [address] [place] [address], USAChloride [Moles/Vol]108 mmol/FBivb03-779Mjq [facility] HospitalComment on above:Order Comment: No: Do not add to previous drawPerformed By: #### 59031, 07792, 38669 #### [facility] [address] [place] [address], USACO2 [Moles/Vol]23 mmol/PNvteth35-44Hnb [facility] HospitalComment on above:Order Comment: No: Do not add to previous draw Performed By: #### 04464, 28761, 57615 #### [facility] [address] [place] [address], USACreatinine [Mass/Vol]0.48 mg/dLLow0.60-1.20The [facility] HospitalComment on above:Order Comment: No: Do not add to previous drawPerformed By: #### 15080, 85726, 32966 #### [facility] [address] [place] [address], USAGFR/1.73 sq M.predicted among blacks MDRD (S/P/Bld) [Vol rate/Area]mL/min/{1.73_m2}Normal>60The [facility] Comment on above:Order Comment: No: Do not add to previous drawPerformed By: #### 89344, 82038, 55877 #### [facility] [address] [place] [address], USAGFR/1.73 sq M.predicted among non-blacks MDRD (S/P/Bld) [Vol rate/Area]mL/min/{1.73_m2}Normal>60The [facility] Comment on above:Order Comment: No: Do not add to previous drawPerformed By: #### 66096, 61122, 13443 #### [facility] [address] [place] [address], USAGlucose [Mass/Vol]94 mg/zWBzdwsl24-134Uwg [facility] HospitalComment on above:Order Comment: No: Do not add to previous drawPerformed By: #### 18969, 31250, 75206 #### [facility] [address] [place] [address], USAPotassium [Moles/Vol]3.9 mmol/LNormal3.5-5.1The [facility] HospitalComment on above:Order Comment: No: Do not add to previous drawPerformed By: #### 38392, 64700, 10736 #### [facility] [address] [place] [address], USASodium [Moles/Vol]138 mmol/AAoyamr345-184Xwq [facility] HospitalComment on above:Order Comment: No: Do not add to previous drawPerformed By: #### 61020, 75513, 51847 #### [facility] [address] [place] [address], USAUrea nitrogen [Mass/Vol]9 mg/dLNormal7-25The [facility] HospitalComment on above:Order Comment: No: Do not add to previous drawPerformed By: #### 92019, 39904, 27314 #### [facility] [address] [facility] [address], [facility]ICAL CENTERCBC W/DIFFon [id number] IMM GRANS0.0 10*3/uLNormal 0.0-0.2The [facility] HospitalComment on above:Order Comment: RLQ PERIHEPATIC FLUID DRAINAGEPerformed By: #### 00016 #### [facility] [address] [place] [address], USAABS NEUTROPHILS4.5 10*3/uLNormal1.6-7.6The [facility] HospitalComment on above:Order Comment: RLQ PERIHEPATIC FLUID DRAINAGEPerformed By: #### 42639 #### [facility] [address] [place] [address], USABasophils (Bld) [#/Vol]0.0 10*3/uLNormal0.0-0.2The [facility] HospitalComment on above:Order Comment: RLQ PERIHEPATIC FLUID DRAINAGEPerformed By: #### 86378 #### [facility] [address] [place] [address], USABasophils/100 WBC (Bld)0.3 %Normal0.0-1.0The [facility] HospitalComment on above:Order Comment: RLQ PERIHEPATIC FLUID DRAINAGEPerformed By: #### 40268 #### [facility] [address] [place] [address], USAEosinophils (Bld) [#/Vol]0.1 10*3/uLNormal0.0-0.5The [facility] HospitalComment on above:Order Comment: RLQ PERIHEPATIC FLUID DRAINAGEPerformed By: #### 20649 #### [facility] [address] [place] [address], USAEosinophils/100 WBC (Bld)1.4 %Normal0.0-6.0The [facility] HospitalComment on above:Order Comment: RLQ PERIHEPATIC FLUID DRAINAGEPerformed By: #### 90883 #### [facility] [address] [place] [address], USAErythrocyte distribution width (RBC) [Ratio]14.0 %Normal 11.5-15.0The [facility] HospitalComment on above:Order Comment: RLQ PERIHEPATIC FLUID DRAINAGEPerformed By: #### 01665 #### [facility] [address] [place] [address], USAHematocrit (Bld) [Volume fraction]27.2 %Low36.0-45.0The [facility] HospitalComment on above:Order Comment: RLQ PERIHEPATIC FLUID DRAINAGEPerformed By: #### 65013 #### [facility] [address] [place] [address], USAHemoglobin (Bld) [Mass/Vol]8.5 g/dLLow12.0-15.0The [facility] HospitalComment on above:Order Comment: RLQ PERIHEPATIC FLUID DRAINAGEPerformed By: #### 52958 #### [facility] [address] [place] [address], USAIMMATURE GRANS0.5 %Normal0.0-1.0The [facility] HospitalComment on above:Order Comment: RLQ PERIHEPATIC FLUID DRAINAGE Performed By: #### 12904 #### [facility] [address] [place] [address], USALymphocytes (Bld) [#/Vol]1.3 10*3/uLNormal1.2-4.0The [facility] HospitalComment on above:Order Comment: RLQ PERIHEPATIC FLUID DRAINAGEPerformed By: #### 38390 #### [facility] [address] [place] [address], USALymphocytes/100 WBC (Bld)20.5 %Xmbqor66.0-45.0The [facility] HospitalComment on above:Order Comment: RLQ PERIHEPATIC FLUID DRAINAGEPerformed By: #### 60681 #### [facility] [address] [place] [address], [facility] [place] (RBC) [Entitic mass]29.7 zkWgaqni12.0-33.0The [facility] HospitalComment on above:Order Comment: RLQ PERIHEPATIC FLUID DRAINAGEPerformed By: #### 53492 #### [facility] [address] [place] [address], [facility] CENTERMCHC (RBC) [Mass/Vol]31.3 g/dLLow32.0-35.0The [facility] HospitalComment on above:Order Comment: RLQ PERIHEPATIC FLUID DRAINAGEPerformed By: #### 83498 #### [facility] [address] [place] [address], USAMCV (RBC) [Entitic vol]95.1 rPIaogug50.0-98.0The [facility] HospitalComment on above:Order Comment: RLQ PERIHEPATIC FLUID DRAINAGEPerformed By: #### 22492 #### [facility] [address] [place] [address], USAMonocytes (Bld) [#/Vol]0.5 10*3/uLNormal0.1-1.0The [facility] HospitalComment on above:Order Comment: RLQ PERIHEPATIC FLUID DRAINAGEPerformed By: #### [id number] #### [facility] [address] [place] [address], USAMONOS7.3 %Normal5.0-12.0The [facility] HospitalComment on above:Order Comment: RLQ PERIHEPATIC FLUID DRAINAGEPerformed By: #### [id number] #### [facility] [address] [place] [address], USANeutrophils/100 WBC (Bld)70.0 %Pcfsnr29.0-72.0The [facility] HospitalComment on above:Order Comment: RLQ PERIHEPATIC FLUID DRAINAGEPerformed By: #### [id number] #### [facility] [address] [place] [place] [address], USANucleated RBC/100 WBC (Bld) [Ratio]0 %Normal0-0The [facility] HospitalComment on above:Order Comment: RLQ PERIHEPATIC FLUID DRAINAGEPerformed By: #### [id number] #### [facility] [address] [place] [address], USAPLAT TQU640 10*3/cVYfji629-404Kty [facility]rville HospitalComment on above:Order Comment: RLQ PERIHEPATIC FLUID DRAINAGE Performed By: #### [id number] #### [facility] [address] [facility] [address], USARBC (Bld) [#/Vol]2.86 10*6/uLLow3.80-5.00The [facility] HospitalComment on above:Order Comment: RLQ PERIHEPATIC FLUID DRAINAGEPerformed By: #### [id number] #### [facility] [address] [place] [address], USAWBC (Bld) [#/Vol]6.44 10*3/uLNormal4.00-10.60The [facility] HospitalComment on above:Order Comment: RLQ PERIHEPATIC FLUID DRAINAGEPerformed By: #### [id number] #### [facility] [address] [place] [address], USACT DRAINAGE PERITONEALon [id number] DRAINAGE PERITONEAL [facility] Department of Radiology [address] [place] [id number] Patient Name: JULIA QUISPE : 1970 Sex: F Age: Race: White Pt. Location: [id number] Patient Status: I Ordered Date: 11/05/2021 6:55:00 AM Completed Date: 11/05/2021 12:41 PM Requesting Provider: NAKUL TEE Attending Provider: JESSICA BARBOSA Report Copy To: Signs & Symptoms: Abdominal [...] risks are acceptable. Consent was obtained. Timeout: New Site protocol timeout verification performed. MEDICATIONS: 2 mg [...] this time and was unsuccessful. A 10 [place] pigtail catheter was then placed and placement [...] report. Electronically signed: Caroline Escamilla. Transcribed by: [email or web address], User Resident: FLIP PUENTES Electronically Signed by: CAROLINE ESCAMILLA @ 11/05/2021 01:45 PM I personally read this/these film(s) with this residentSaint Joseph Hospital Of KirkwoodalThElyria Memorial HospitalComment on above:Order Comment: Other, liver abscess posterior segment right lobeMAGNESIUM BLOODon 80-80-1876Cvfwauddi [Mass/Vol]2.0 mg/dLNormal1.9-2.7The [facility] HospitalComment on above:Order Comment: No: Do not add to previous drawPerformed By: #### 59934, 90105, 41781 #### [facility] [address] [place] [address], USAPHOSPHORUS BLOODon 48-67-9579Ejcpkrkux [Mass/Vol]3.7 mg/dL Normal2.5-5.0The [facility] HospitalComment on above:Order Comment: No: Do not add to previous drawPerformed By: #### 18209, 99383, 78073 #### [facility] [address] [place] [address], USAPOC SARS COV2 ANTIGEN NEGATIVEon [id number] SARS COV2 ANTIGEN NEGNegativeNormalNEGATIVEThe [facility] HospitalComment on above:Result Comment: Negative results should be treated as presumptive and [...] antigen from SARS-CoV-2 in direct nasopharyngeal swab (DISASTER DIRECTOR) specimens from individuals who are suspected of [...] Waiver, Certificate of Compliance, or Certificate of Accreditation.Performed By: #### [id number] #### [facility] [address] [address], USAPROTHROMBIN TIMEon [id number] Coag (PPP) [Relative time] 1.14 {INR}Normal0.91-1.16The [facility] HospitalComment on above:Order Comment: No: Do not add to previous drawResult Comment: ACCCP RECOMMENDED INR FOR WARFARIN THERAPY ------- CONDITION INR PROPHYLAXIS OF VENOUS THROMBOSIS 2-3 (HIGH-RISK SURGERY) TREATMENT OF VENOUS THROMBOSIS 2-3 TREATMENT OF PULMONARY EMBOLISM 2-3 PREVENTION OF SYSTEMIC EMBOLISM: 2-3 ACUTE MYOCARDIAL INFARCTION TISSUE HEART VALVES VALVULAR HEART DISEASE ATRIAL FIBRILLATION RECURRENT SYSTEMIC EMBOLISM MECHANICAL HEART VALVE 2.5-3.5 FROM: ORAL ANTICOAGULANTS. MECHANISM OF ACTION, CLINICAL EFFECTIVENESS, AND OPTIMAL THERAPEUTIC RANGE. CHEST 1995;108:231S-246S.Performed By: #### 80215, 62692, 31124 #### [facility] [address] [facility] [address], USAPT Coag (PPP) [Time]14.6 nUxglur85.3-14.8The [facility]rville HospitalComment on above:Order Comment: No: Do not add to previous drawResult Comment: ALL RESULTS MUST BE INTERPRETED WITH RESPECT TO BLOOD DRAWING ARTIFACT OR DILUTION ERROR OF ANTICOAGULANT AT THE TIME OF SAMPLING.Performed By: #### 79565, 04506, 94363 #### [address] [place] [address], USAUS GALLBLADDERon [id number] GALLBLADDERUnSumma Health [facility]ron Campus Department of Radiology [address] [place] [id number] Patient Name: JULIA QUISPE : 1970 Sex: F Age: Race: White Pt. Location: [id number] Patient Status: I Ordered Date: 11/05/2021 11:20:00 AM Completed Date: 11/05/2021 01:47 PM Requesting Provider: BRIAN HENDERSON Attending Provider: JESSICA BARBOSA Report Copy To: Signs & Symptoms: Nausea/Vomiting [...] CT. IMPRESSION: Gallbladder sludge. Electronically signed: Vincent Velasquez. Transcribed by: [email or web address], User Resident: Electronically Signed by: VINCENT VELASQUEZ @ 11/05/2021 02:10 PMNormalThe [facility] Orrville HospitalComment on above:Order Comment: Enlargement CBC W/DIFFon [id number] IMM GRANS0.0 10*3/uLNormal0.0-0.2The [facility] HospitalComment on above:Performed By: #### 44897 #### [facility] [address] [facility]. [place] [id number], USAABS NEUTROPHILS6.0 10*3/uLNormal1.6-7.6The [facility] HospitalComment on above:Performed By: #### 48980 #### [facility] [address] [facility] [facility] [address], USABasophils (Bld) [#/Vol]0.0 10*3/uLNormal0.0-0.2The [facility] HospitalComment on above:Performed By: #### 89522 #### [facility] [address] [facility] [address], USABasophils/100 WBC (Bld)0.4 %Normal0.0-1.0The [facility] HospitalComment on above:Performed By: #### 57773 #### [facility] [address] [address], USAEosinophils (Bld) [#/Vol]0.1 10*3/uLNormal0.0-0.5The [facility] HospitalComment on above:Performed By: #### 13856 #### [facility] [address] [place] [address], USAEosinophils/100 WBC (Bld)1.2 %Normal0.0-6.0The [facility] HospitalComment on above:Performed By: #### 29076 #### [facility] [address] [place] [address], USAErythrocyte distribution width (RBC) [Ratio]13.9 %Normal 11.5-15.0The [facility] HospitalComment on above:Performed By: #### 68395 #### [facility] [address] [place] [address], USAHematocrit (Bld) [Volume fraction]30.8 %Low36.0-45.0The [facility] HospitalComment on above:Performed By: #### 30466 #### [facility] [address] [place] [address], USAHemoglobin (Bld) [Mass/Vol]9.8 g/dLLow12.0-15.0The [facility] HospitalComment on above:Performed By: #### 80359 #### [facility] [address] [place] [address], USAIMMATURE GRANS0.4 %Normal0.0-1.0The [facility] HospitalComment on above:Performed By: #### 37892 #### [facility] [address] [place] [address], USALymphocytes (Bld) [#/Vol]1.7 10*3/uLNormal1.2-4.0The [facility] HospitalComment on above:Performed By: #### 81812 #### [facility] [address] [place] [address], USALymphocytes/100 WBC (Bld)20.3 %Oscdrs69.0-45.0The [facility] HospitalComment on above:Performed By: #### 48405 #### [facility] [address] [place] [address], USAMCH (RBC) [Entitic mass]30.1 jhYgmmtz52.0-33.0The [facility] HospitalComment on above:Performed By: #### 93311 #### [facility] [address] [place] [id number], [facility] CITYHC (RBC) [Mass/Vol]31.8 g/dLLow32.0-35.0The [facility] HospitalComment on above:Performed By: #### 48820 #### [facility] [address] [place] [address], [facility] MEDICAL CENTERMCV (RBC) [Entitic vol]94.5 bBYxpysv81.0-98.0The [facility] HospitalComment on above:Performed By: #### 65833 #### [facility] [address] [place] [address], [facility] MEDICAL CENTERMonocytes (Bld) [#/Vol]0.6 10*3/uLNormal0.1-1.0The [facility] HospitalComment on above:Performed By: #### 23511 #### [facility] [address] [place] [address], [facility] MEDICAL CENTERMONOS6.6 %Normal5.0-12.0The [facility] HospitalComment on above:Performed By: #### 71676 #### [facility] [address] [place] [address], [facility] MEDICAL CENTERNeutrophils/100 WBC (Bld)71.1 %Zordug97.0-72.0The [facility] HospitalComment on above:Performed By: #### 70289 #### [facility] [address] [place] [address], USANucleated RBC/100 WBC (Bld) [Ratio]0 %Normal0-0The [facility] HospitalComment on above:Performed By: #### 72157 #### [facility] [address] [place] [address], USAPLAT HZY001 10*3/lVLzug949-856Fgb [facility] HospitalComment on above:Performed By: #### 44713 #### [facility] [address] [place] [address], USARBC (Bld) [#/Vol]3.26 10*6/uLLow3.80-5.00The [facility] HospitalComment on above:Performed By: #### 45486 #### [facility] [address] [place] [address], USAWBC (Bld) [#/Vol]8.43 10*3/uLNormal4.00-10.60The [facility] HospitalComment on above:Performed By: #### 85066 #### [facility] [address] [place] [address], USACOMP METABOLIC PANELon 15-05-7142Ywheibs [Mass/Vol]3.7 g/dL Normal3.5-5.7The [facility] HospitalComment on above:Performed By: #### 49702, 01711, 34847 #### [facility] [address] [place] [address], USAALKALINE DUHPYR766 IU/JReug16-614Bps [facility] HospitalComment on above:Performed By: #### 24011, 07052, 62642 #### [facility] [address] [place] [address], USAALT [Catalytic activity/Vol]99 U/LHigh7-52The [facility] HospitalComment on above:Performed By: #### 54551, 78952, 83846 #### [facility] [address] [place] [address], USAAST [Catalytic activity/Vol]38 U/RWnmppp03-45Wgc [facility] HospitalComment on above:Performed By: #### 46123, 25249, 58242 #### [facility] [address] [place] [address], USABilirubin [Mass/Vol]0.7 mg/dLNormal0.3-1.0The [facility] HospitalComment on above:Performed By: #### 90113, 14888, 51115 #### [facility] [address] [place] [address], USACalcium [Mass/Vol]9.2 mg/dLNormal8.6-10.3The [facility] HospitalComment on above:Performed By: #### 81467, 16995, 61255 #### [facility] [address] [place] [address], USAChloride [Moles/Vol]103 mmol/WIaljka80-960Qme [facility] HospitalComment on above:Performed By: #### 88579, 99409, 91335 #### [facility] [address] [place] [address], USACO2 [Moles/Vol]27 mmol/TYglylp45-39Yyr [facility] HospitalComment on above:Performed By: #### 00038, 18208, 91873 #### [facility] [address] [place] [address], USACreatinine [Mass/Vol]0.60 mg/dLNormal0.60-1.20The [facility] HospitalComment on above:Performed By: #### 55583, 45609, 85627 #### [facility] [address] [place] [address], USAGFR/1.73 sq M.predicted among blacks MDRD (S/P/Bld) [Vol rate/Area]mL/min/{1.73_m2}Normal>60The [facility] Comment on above:Performed By: #### 32337, 16999, 04003 #### [facility] [address] [place] [address], USAGFR/1.73 sq M.predicted among non-blacks MDRD (S/P/Bld) [Vol rate/Area]mL/min/{1.73_m2}Normal>60The [facility] Comment on above:Performed By: #### 17380, 34688, 85428 #### [facility] [address] [place] [address], USAGlucose [Mass/Vol]93 mg/nOQmlftp57-894Rzs [facility] HospitalComment on above:Performed By: #### 87829, 52742, 23510 #### [facility] [address] [place] [place] [address], USAPotassium [Moles/Vol]4.2 mmol/LNormal3.5-5.1The [facility] HospitalComment on above:Performed By: #### 52258, 60863, 85585 #### [facility] [address] [place] [place] [address], USAProtein [Mass/Vol]6.6 g/dLNormal6.0-8.3The [facility] HospitalComment on above:Performed By: #### 31674, 66858, 29464 #### [facility] [address] [facility] [address], USASodium [Moles/Vol]139 mmol/REapuki555-600Gxo [facility] HospitalComment on above:Performed By: #### 19459, 81559, 39076 #### [facility] [address] [place] [place] [address], USAUrea nitrogen [Mass/Vol]12 mg/dLNormal7-25The [facility] HospitalComment on above:Performed By: #### 83663, 09081, 27165 #### [facility] [address] [facility] [address], USACT ABDOMEN AND PELVIS W IV CONTRASTon [id number] ABDOMEN AND PELVIS W IV CONTRASTUnSumma Health [facility] Campus Department of Radiology [address] [place] [id number] Patient Name: JULIA QUISPE : 1970 Sex: F Age: Race: White Pt. Location: [facility] Patient Status: E Ordered Date: 11/04/2021 [...] as low as reasonably achievable. Electronically signed: eDacon Saenz. Transcribed by: [email or web address], User Resident: Electronically Signed by: DEACON SAENZ @ 11/04/2021 06:21 PMNormalThe [facility] HospitalComment on above:Order Comment: Retroperitoneal Mass/Abscess, post-appendectomy with MICHEAL drainLACTATE WITH REFLEX on 65-84-9927Ctkiwya [Moles/Vol]1.3 mmol/LNormal.5-2.2The [facility] HospitalComment on above:Performed By: #### 66747, 28851, 35745 #### [facility] [address] [place] [address], USALIPASE BLOODon 09-36-6360HORHBS363 Units/RLjns50-49Psz [facility] HospitalComment on above:Performed By: #### 41818, 97698, 25222 #### [facility] [address] [place] [address], USABASIC METABOLIC PANELon 95-05-6959Nthbyac [Mass/Vol]8.6 mg/dLNormal8.6-10.3The [facility] HospitalComment on above:Order Comment: No: Do not add to previous drawPerformed By: #### 69881, 50542, 05346 #### [facility] [address] [place] [address], USAChloride [Moles/Vol]103 mmol/XWhepgv00-938Yui [facility] HospitalComment on above:Order Comment: No: Do not add to previous drawPerformed By: #### 86235, 07189, 69503 #### [facility] [address] [place] [address], USACO2 [Moles/Vol]28 mmol/DRsisxq95-72Ihz [facility] HospitalComment on above:Order Comment: No: Do not add to previous draw Performed By: #### 45137, 06340, 34316 #### [facility] [address] [place] [address], USACreatinine [Mass/Vol]0.61 mg/dLNormal0.60-1.20The [facility] HospitalComment on above:Order Comment: No: Do not add to previous drawPerformed By: #### 18015, 64595, 49026 #### [facility] [address] [place] [address], USAGFR/1.73 sq M.predicted among blacks MDRD (S/P/Bld) [Vol rate/Area]mL/min/{1.73_m2}Normal>60The [facility] Comment on above:Order Comment: No: Do not add to previous drawPerformed By: #### 96843, 84697, 70355 #### [facility] [address] [place] [address], USAGFR/1.73 sq M.predicted among non-blacks MDRD (S/P/Bld) [Vol rate/Area]mL/min/{1.73_m2}Normal>60The [facility] Comment on above:Order Comment: No: Do not add to previous drawPerformed By: #### 32559, 25200, 02294 #### [facility] [address] [place] [address], USAGlucose [Mass/Vol]101 mg/pTQabs06-215Dos [facility] HospitalComment on above:Order Comment: No: Do not add to previous drawPerformed By: #### 85111, 35401, 23358 #### [facility] [address] [facility] [place] [address], USAPotassium [Moles/Vol]4.0 mmol/LNormal3.5-5.1The [facility] HospitalComment on above:Order Comment: No: Do not add to previous drawPerformed By: #### 00141, 86926, 55799 #### [facility] [address] [place] [address], USASodium [Moles/Vol]136 mmol/TOwjish245-705Sxa [facility] HospitalComment on above:Order Comment: No: Do not add to previous drawPerformed By: #### 23980, 49219, 63006 #### [facility] [address] [place] [address], USAUrea nitrogen [Mass/Vol]11 mg/dLNormal7-25The [facility] HospitalComment on above:Order Comment: No: Do not add to previous drawPerformed By: #### 45546, 36182, 92780 #### [facility] [address] [place] [address], USACBC COMPLETE BLOOD COUNTon 51-38-2992Augsghbdhbn distribution width (RBC) [Ratio]14.7 %Feqmgu18.5-15.0The [facility] HospitalComment on above:Order Comment: RLQ PERIHEPATIC FLUID DRAINAGE Performed By: #### 75328 #### [facility] [address] [place] [address], USAHematocrit (Bld) [Volume fraction]25.3 %Low36.0-45.0The [facility] HospitalComment on above:Order Comment: RLQ PERIHEPATIC FLUID DRAINAGEPerformed By: #### 92459 #### [facility] [address] [place] [address], USAHemoglobin (Bld) [Mass/Vol]8.0 g/dLLow12.0-15.0The [facility] HospitalComment on above:Order Comment: RLQ PERIHEPATIC FLUID DRAINAGEPerformed By: #### 23324 #### [facility] [address] [place] [address], USAMCH (RBC) [Entitic mass]30.2 wiErseih06.0-33.0The [facility] HospitalComment on above:Order Comment: RLQ PERIHEPATIC FLUID DRAINAGEPerformed By: #### 77028 #### [facility] [address] [place] [id number], [facility] CENTERMCHC (RBC) [Mass/Vol]31.6 g/dLLow32.0-35.0The [facility] HospitalComment on above:Order Comment: RLQ PERIHEPATIC FLUID DRAINAGEPerformed By: #### 37626 #### [facility] [address] [place] [id number], [facility] (RBC) [Entitic vol]95.5 bXXccflp42.0-98.0The [facility] HospitalComment on above:Order Comment: RLQ PERIHEPATIC FLUID DRAINAGEPerformed By: #### 68356 #### [facility] [address] [facility] [place] [address], [facility] AL[facility] MEDICAL CENTERNucleated RBC/100 WBC (Bld) [Ratio]0 %Normal0-0The [facility] HospitalComment on above:Order Comment: RLQ PERIHEPATIC FLUID DRAINAGEPerformed By: #### 79361 #### [facility] [address] [facility] [address], USAPLAT RPL449 10*3/rNWjwj825-024Yek [facility] HospitalComment on above:Order Comment: RLQ PERIHEPATIC FLUID DRAINAGE Performed By: #### 40271 #### [facility] [address] [facility] [address], [facility] MEDICAL CENTERRBC (Bld) [#/Vol]2.65 10*6/uLLow3.80-5.00The [facility] HospitalComment on above:Order Comment: RLQ PERIHEPATIC FLUID DRAINAGEPerformed By: #### 65360 #### [facility] [address] [facility] [place] [address], [facility] MEDICAL CENTERWBC (Bld) [#/Vol]8.36 10*3/uLNormal4.00-10.60The [facility] HospitalComment on above:Order Comment: RLQ PERIHEPATIC FLUID DRAINAGEPerformed By: #### 44044 #### [facility] [address] [place] [address], USAMAGNESIUM BLOODon 88-45-4404Hyolwkvgh [Mass/Vol]2.0 mg/dL Normal1.9-2.7The [facility] HospitalComment on above:Order Comment: No: Do not add to previous drawPerformed By: #### 64046, 68506, 98648 #### [facility] [address] [place] [address], USAPHOSPHORUS BLOODon 60-97-4617Cyaquqsmz [Mass/Vol]3.5 mg/dL Normal2.5-5.0The [facility] HospitalComment on above:Order Comment: No: Do not add to previous drawPerformed By: #### 01538, 79283, 22777 #### [facility] [address] [place] [address], USABASIC METABOLIC PANELon 84-01-3169Mhqrsoa [Mass/Vol]8.6 mg/dLNormal8.6-10.3The [facility] HospitalComment on above:Order Comment: No: Do not add to previous drawPerformed By: #### 80697, 65623, 87010 ####[facility] [place] [address], [place] Chloride [Moles/Vol]102 mmol/PZekyah78-358Jtz [facility] HospitalComment on above:Order Comment: No: Do not add to previous drawPerformed By: #### 40398, 96211, 59382 ####[facility] [place] [address], USACO2 [Moles/Vol]28 mmol/QWfrqez95-69Gpy [facility] HospitalComment on above:Order Comment: No: Do not add to previous drawPerformed By: #### 18466, 01855, 38486 ####[facility] [place] [address], USACreatinine [Mass/Vol]0.52 mg/dLLow0.60-1.20The [facility] HospitalComment on above:Order Comment: No: Do not add to previous drawPerformed By: #### 68219, 09539, 90229 ####[facility] [place] [address], USAGFR/1.73 sq M.predicted among blacks MDRD (S/P/Bld) [Vol rate/Area] mL/min/{1.73_m2}Normal>60The [facility] HospitalComment on above:Order Comment: No: Do not add to previous drawPerformed By: #### 59702, 21496, 11515 ####[facility] [place] [address], USAGFR/1.73 sq M.predicted among non-blacks MDRD (S/P/Bld) [Vol rate/Area]mL/min/{1.73_m2}Normal>60The [facility] Comment on above:Order Comment: No: Do not add to previous drawPerformed By: #### 85001, 13366, 94664 ####[facility] [place] [address], USAGlucose [Mass/Vol]95 mg/cDWcnnmv14-463Pej [facility] HospitalComment on above:Order Comment: No: Do not add to previous drawPerformed By: #### 31752, 70417, 55142 ####[facility] [place] [address], USAPotassium [Moles/Vol]4.1 mmol/L Normal3.5-5.1The [facility] HospitalComment on above:Order Comment: No: Do not add to previous drawPerformed By: #### 80766, 49297, 36319 ####[facility] [place] [address], [place] Sodium [Moles/Vol]135 mmol/ATdj272-435Krh [facility] Comment on above:Order Comment: No: Do not add to previous drawPerformed By: #### 69208, 79666, 51350 ####[facility] [place] [address], USAUrea nitrogen [Mass/Vol]11 mg/dLNormal7-25The [facility] HospitalComment on above:Order Comment: No: Do not add to previous drawPerformed By: #### 02540, 06911, 41031 ####[facility] [place] [address], USACBC COMPLETE BLOOD COUNTon 03-89-1540Fuglanzysts distribution width (RBC) [Ratio]14.6 %Normal 11.5-15.0The [facility] HospitalComment on above:Order Comment: RLQ PERIHEPATIC FLUID DRAINAGEPerformed By: #### 67923 #### [facility] [address] [place] [address], USAHematocrit (Bld) [Volume fraction]25.2 %Low36.0-45.0The [facility] HospitalComment on above:Order Comment: RLQ PERIHEPATIC FLUID DRAINAGEPerformed By: #### [id number] #### [facility] [address] [place] [address], USAHemoglobin (Bld) [Mass/Vol]7.9 g/dLLow12.0-15.0The [facility] HospitalComment on above:Order Comment: RLQ PERIHEPATIC FLUID DRAINAGEPerformed By: #### [id number] #### [facility] [address] [place] [address], USAMCH (RBC) [Entitic mass]30.2 efYplmlx37.0-33.0The [facility] HospitalComment on above:Order Comment: RLQ PERIHEPATIC FLUID DRAINAGEPerformed By: #### [id number] #### [facility] [address] [place] [address], [facility] CENTERMCHC (RBC) [Mass/Vol]31.3 g/dLLow32.0-35.0The [facility] HospitalComment on above:Order Comment: RLQ PERIHEPATIC FLUID DRAINAGEPerformed By: #### [id number] #### [facility] [address] [place] [address], [facility] CENTERMCV (RBC) [Entitic vol]96.2 rNJimfks22.0-98.0The [facility] HospitalComment on above:Order Comment: RLQ PERIHEPATIC FLUID DRAINAGEPerformed By: #### [id number] #### [facility] [address] [place] [address], USANucleated RBC/100 WBC (Bld) [Ratio]0 %Normal0-0The [facility] HospitalComment on above:Order Comment: RLQ PERIHEPATIC FLUID DRAINAGEPerformed By: #### [id number] #### [facility] [address] [place] [address], USAPLAT PUN963 10*3/eAOcjl137-157Lgg [facility] HospitalComment on above:Order Comment: RLQ PERIHEPATIC FLUID DRAINAGE Performed By: #### [id number] #### [facility] [address] [place] [address], [facility] CENTERRBC (Bld) [#/Vol]2.62 10*6/uLLow3.80-5.00The [facility] HospitalComment on above:Order Comment: RLQ PERIHEPATIC FLUID DRAINAGEPerformed By: #### [id number] #### [facility] [address] [place] [address], [facility]ICAL CENTERWBC (Bld) [#/Vol]8.42 10*3/uLNormal4.00-10.60The [facility] HospitalComment on above:Order Comment: RLQ PERIHEPATIC FLUID DRAINAGEPerformed By: #### [id number] #### [facility] [address] [place] [address], USAMAGNESIUM BLOODon 76-52-7590Qhnulhkjp [Mass/Vol]2.2 mg/dL Normal1.9-2.7The [facility] HospitalComment on above:Order Comment: No: Do not add to previous drawPerformed By: #### 10766, 04668, 54141 ####[facility] [place] [address], [place] PHOSPHORUS BLOODon 23-70-0065Bwtdvcuiy [Mass/Vol]3.4 mg/dLNormal2.5-5.0The [facility] HospitalComment on above:Order Comment: No: Do not add to previous drawPerformed By: #### 55839, 99090, 31778 #### [facility] [address] [place] [address], USABASIC METABOLIC PANELon 29-03-1260Coxulhs [Mass/Vol]8.4 mg/dLLow8.6-10.3The [facility] HospitalComment on above:Order Comment: No: Do not add to previous drawPerformed By: #### [id number] #### [facility] [address] [place] [address], USAChloride [Moles/Vol]103 mmol/UXeztlf19-398Snp [facility] HospitalComment on above:Order Comment: No: Do not add to previous drawPerformed By: #### 35629 #### [facility] [address] [place] [address], USACO2 [Moles/Vol]26 mmol/BVadtyd18-67Yjq [facility] HospitalComment on above:Order Comment: No: Do not add to previous draw Performed By: #### 32825 #### [facility] [address] [place] [address], USACreatinine [Mass/Vol]0.58 mg/dLLow0.60-1.20The [facility] HospitalComment on above:Order Comment: No: Do not add to previous drawPerformed By: #### 31936 #### [facility] [address] [place] [address], USAGFR/1.73 sq M.predicted among blacks MDRD (S/P/Bld) [Vol rate/Area]mL/min/{1.73_m2}Normal>60The [facility] Comment on above:Order Comment: No: Do not add to previous drawPerformed By: #### [id number] #### [facility] [address] [place] [address], USAGFR/1.73 sq M.predicted among non-blacks MDRD (S/P/Bld) [Vol rate/Area]mL/min/{1.73_m2}Normal>60The [facility] Comment on above:Order Comment: No: Do not add to previous drawPerformed By: #### 58265 #### [facility] [address] [place] [address], USAGlucose [Mass/Vol]101 mg/wUHcee30-535Grx [facility] HospitalComment on above:Order Comment: No: Do not add to previous drawPerformed By: #### 25452 #### [facility] [address] [place] [address], USAPotassium [Moles/Vol]4.2 mmol/LNormal3.5-5.1The [facility] HospitalComment on above:Order Comment: No: Do not add to previous drawPerformed By: #### 74388 #### [facility] [address] [place] [address], USASodium [Moles/Vol]133 mmol/BHvp797-096Zlh [facility] HospitalComment on above:Order Comment: No: Do not add to previous drawPerformed By: #### 96699 #### [facility] [address] [place] [address], USAUrea nitrogen [Mass/Vol]9 mg/dLNormal7-25The [facility] HospitalComment on above:Order Comment: No: Do not add to previous drawPerformed By: #### 41043 #### [facility] [address] [place] [address], USACBC COMPLETE BLOOD COUNTon 95-87-8313Lrhngtpollt distribution width (RBC) [Ratio]14.7 %Odigzj21.5-15.0The [facility] HospitalComment on above:Order Comment: No: Do not add to previous draw Performed By: #### 38228, 18864, 89767 #### [facility] [address] [place] [address], USAHematocrit (Bld) [Volume fraction]24.1 %Low36.0-45.0The [facility] HospitalComment on above:Order Comment: No: Do not add to previous drawPerformed By: #### 26404, 46961, 39213 #### [facility] [address] [place] [address], USAHemoglobin (Bld) [Mass/Vol]7.7 g/dLLow12.0-15.0The [facility] HospitalComment on above:Order Comment: No: Do not add to previous drawPerformed By: #### 62687, 11092, 70244 #### [facility] [address] [place] [address], [facility] (RBC) [Entitic mass]29.8 kaHrmgid19.0-33.0The [facility] HospitalComment on above:Order Comment: No: Do not add to previous drawPerformed By: #### 02095, 27916, 08926 #### [facility] [address] [place] [address], [facility] CENTERMCHC (RBC) [Mass/Vol]32.0 g/pCMuftct34.0-35.0The [facility] HospitalComment on above:Order Comment: No: Do not add to previous drawPerformed By: #### 85757, 12221, 08730 #### [facility] [address] [place] [address], USAMCV (RBC) [Entitic vol]93.4 fMZzwsrf23.0-98.0The [facility] HospitalComment on above:Order Comment: No: Do not add to previous drawPerformed By: #### 50479, 19515, 80357 #### [facility] [address] [place] [address], USANucleated RBC/100 WBC (Bld) [Ratio]0 %Normal0-0The [facility] HospitalComment on above:Order Comment: No: Do not add to previous drawPerformed By: #### 43097, 51408, 55775 #### [facility] [address] [place] [address], USAPLAT [id number] 10*3/cTThxv618-542Iff [facility] HospitalComment on above:Order Comment: No: Do not add to previous draw Performed By: #### 44869, 55349, 41587 #### [facility] [address] [place] [address], USARBC (Bld) [#/Vol]2.58 10*6/uLLow3.80-5.00The [facility] HospitalComment on above:Order Comment: No: Do not add to previous drawPerformed By: #### 42084, 92007, 90793 #### [facility] [address] [place] [address], USAWBC (Bld) [#/Vol]9.58 10*3/uLNormal4.00-10.60The [facility] HospitalComment on above:Order Comment: No: Do not add to previous drawPerformed By: #### 07244, 54520, 40785 #### [facility] [address] [place] [address], USAMAGNESIUM BLOODon 29-34-5133Tgdbckygi [Mass/Vol]2.3 mg/dL Normal1.9-2.7The [facility] HospitalComment on above:Order Comment: No: Do not add to previous drawPerformed By: #### 47632 #### [facility] [address] [place] [address], USAPHOSPHORUS BLOODon 34-56-4345Qoqillwes [Mass/Vol]3.5 mg/dL Normal2.5-5.0The [facility] HospitalComment on above:Order Comment: No: Do not add to previous drawPerformed By: #### 78331 #### [facility] [address] [place] [address], USABASIC METABOLIC PANELon 17-50-8561Gradaby [Mass/Vol]8.1 mg/dLLow8.6-10.3The [facility] HospitalComment on above:Order Comment: No: Do not add to previous drawPerformed By: #### 94837, 11906, 41932 #### [facility] [address] [place] [address], USAChloride [Moles/Vol]103 mmol/CZbrigb68-011Srj [facility] HospitalComment on above:Order Comment: No: Do not add to previous drawPerformed By: #### 23508, 45019, 48628 #### [facility] [address] [place] [address], USACO2 [Moles/Vol]25 mmol/OCaqbas01-30Ycq [facility] HospitalComment on above:Order Comment: No: Do not add to previous draw Performed By: #### 09486, 02595, 27591 #### [facility] [address] [place] [address], USACreatinine [Mass/Vol]0.60 mg/dLNormal0.60-1.20The [facility] HospitalComment on above:Order Comment: No: Do not add to previous drawPerformed By: #### 89521, 17118, 79932 #### [facility] [address] [place] [address], USAGFR/1.73 sq M.predicted among blacks MDRD (S/P/Bld) [Vol rate/Area]mL/min/{1.73_m2}Normal>60The [facility] Comment on above:Order Comment: No: Do not add to previous drawPerformed By: #### 89275, 98760, 20642 #### [facility] [address] [place] [address], USAGFR/1.73 sq M.predicted among non-blacks MDRD (S/P/Bld) [Vol rate/Area]mL/min/{1.73_m2}Normal>60The [facility] Comment on above:Order Comment: No: Do not add to previous drawPerformed By: #### 47477, 63974, 20746 #### [facility] [address] [place] [address], USAGlucose [Mass/Vol]124 mg/iMOozw60-968Jym [facility] HospitalComment on above:Order Comment: No: Do not add to previous drawPerformed By: #### 31686, 30019, 98836 #### [facility] [address] [place] [address], USAPotassium [Moles/Vol]4.0 mmol/LNormal3.5-5.1The [facility] HospitalComment on above:Order Comment: No: Do not add to previous drawPerformed By: #### 27794, 35992, 25189 #### [facility] [address] [place] [address], USASodium [Moles/Vol]134 mmol/TMxg777-396Aoq [facility] HospitalComment on above:Order Comment: No: Do not add to previous drawPerformed By: #### 46244, 08906, 67792 #### [facility] [address] [place] [address], USAUrea nitrogen [Mass/Vol]8 mg/dLNormal7-25The [facility] HospitalComment on above:Order Comment: No: Do not add to previous drawPerformed By: #### 02368, 44974, 43662 #### [facility] [address] [facility] [place] [address], USACBC W/DIFFon 48-18-5767AUE IMM GRANS0.2 10*3/uLNormal 0.0-0.2The [facility] HospitalComment on above:Performed By: #### 92539 #### [facility] [address] [facility] [place] [address], USAABS NEUTROPHILS7.0 10*3/uLNormal1.6-7.6The [facility] HospitalComment on above:Performed By: #### 05197 #### [facility] [address] [facility] [place] [address], USABasophils (Bld) [#/Vol]0.0 10*3/uLNormal0.0-0.2The [facility] HospitalComment on above:Performed By: #### 10378 #### [facility] [address] [facility] [place] [address], USABasophils/100 WBC (Bld)0.2 %Normal0.0-1.0The [facility] HospitalComment on above:Performed By: #### 15139 #### [facility] [address] [facility] [place] [address], USAEosinophils (Bld) [#/Vol]0.1 10*3/uLNormal0.0-0.5The [facility] HospitalComment on above:Performed By: #### 83860 #### [facility] [address] [facility] [address], USAEosinophils/100 WBC (Bld)0.9 %Normal0.0-6.0The [facility] HospitalComment on above:Performed By: #### 88892 #### [facility] [address] [address], USAErythrocyte distribution width (RBC) [Ratio]14.5 %Normal 11.5-15.0The [facility] HospitalComment on above:Performed By: #### 38474 #### [facility] [address] [address], USAHematocrit (Bld) [Volume fraction]23.5 %Low36.0-45.0The [facility] HospitalComment on above:Performed By: #### 61547 #### [facility] [address] [facility] [address], [facility]ICAL CENTERHemoglobin (Bld) [Mass/Vol]7.9 g/dLLow12.0-15.0The [facility] HospitalComment on above:Performed By: #### 15702 #### [facility] [address] [facility] [address], USAIMMATURE GRANS2.6 %High0.0-1.0The [facility] HospitalComment on above:Performed By: #### 78212 #### [facility] [address] [facility] [place] [address], [facility]ICAL CENTERLymphocytes (Bld) [#/Vol]1.2 10*3/uLNormal1.2-4.0The [facility] HospitalComment on above:Performed By: #### 04074 #### [facility] [address] [facility] [address], USALymphocytes/100 WBC (Bld)13.2 %Low20.0-45.0The [facility] HospitalComment on above:Performed By: #### 01860 #### [facility] [address] [facility] [address], USAMCH (RBC) [Entitic mass]31.0 trRobitk56.0-33.0The [facility] HospitalComment on above:Performed By: #### 03888 #### [facility] [address] [place] [address], [facility] CENTERMCHC (RBC) [Mass/Vol]33.6 g/eDCgqqtb36.0-35.0The [facility] HospitalComment on above:Performed By: #### 56972 #### [facility] [address] [place] [address], [facility] CENTERMCV (RBC) [Entitic vol]92.2 zQPlecux45.0-98.0The [facility] HospitalComment on above:Performed By: #### 75409 #### [facility] [address] [place] [address], [facility] CENTERMonocytes (Bld) [#/Vol]0.6 10*3/uLNormal0.1-1.0The [facility] HospitalComment on above:Performed By: #### 50722 #### [facility] [address] [place] [address], [facility] CENTERMONOS6.5 %Normal5.0-12.0The [facility] HospitalComment on above:Performed By: #### 91880 #### [facility] [address] [place] [address], [facility]ICAL CENTERNeutrophils/100 WBC (Bld)76.6 %High40.0-72.0The [facility] HospitalComment on above:Performed By: #### 04882 #### [facility] [address] [place] [address], USANucleated RBC/100 WBC (Bld) [Ratio]0 %Normal0-0The [facility] HospitalComment on above:Performed By: #### 59753 #### [facility] [address] [place] [address], USAPLAT RMQ444 10*3/jLFptg595-662Hnf [facility] HospitalComment on above:Performed By: #### 26270 #### [facility] [address] [place] [id number], [facility] MEDICAL CENTERRBC (Bld) [#/Vol]2.55 10*6/uLLow3.80-5.00The [facility] HospitalComment on above:Performed By: #### 80985 #### [facility] [address] [facility] [place] [address], [facility] CENTERWBC (Bld) [#/Vol]9.12 10*3/uLNormal4.00-10.60The [facility] HospitalComment on above:Performed By: #### 66179 #### [facility] [address] [address], [facility] CENTERMAGNESIUM BLOODon 19-94-7572Ajfdytejd [Mass/Vol]2.3 mg/dL Normal1.9-2.7The [facility] HospitalComment on above:Order Comment: No: Do not add to previous drawPerformed By: #### 94972, 11545, 78421 #### [facility] [address] [facility] [place] [address], [facility]ICAL CENTERPHOSPHORUS BLOODon 59-34-1414Egxlljmia [Mass/Vol]3.8 mg/dL Normal2.5-5.0The [facility] HospitalComment on above:Order Comment: No: Do not add to previous drawPerformed By: #### 71830, 76375, 37130 #### [facility] [address] [place] [address], [facility]*ANAEROBIC CULTUREon 10-24-2021*ANAEROBIC CULTUREClinical Report: (C) Specimen: FLUID Collected: 10/24/2021 12:45 Status: Final Last Updated: 10/29/2021 07:44 (1) Post Surgical Abscess ISO (Final) ^No Anaerobes Isolated 5 Days Result changed by AVILA on 10/29/2021 07:44. The previous result was: ISO (Prelim) ^No strict anaerobes isolated to [facility] HospitalComment on above:Order Comment: Post Surgical AbscessPerformed By: #### 74798 #### [facility] [address] [place] [address], [facility]*BODY FLUID CULTUREon 10-24-2021*BODY FLUID CULTUREClinical Report: (D) Specimen: FLUID Collected: 10/24/2021 12:45 Status: Final Last Updated: 10/26/2021 09:49 (1) Post Surgical Abscess GRAM (Final) Many Polys No Bacteria Seen ISO (Final) Escherichia coli Light Growth ISOLATE: Escherichia coli MILLICENT (mcg/ml) AMP./SULBAC (AMS) 4/2 Susceptible AMPICILLIN (AM) <=4 Susceptible AZTREONAM (AZM) <=2 Susceptible CEFAZOLIN (CZ) 4 Susceptible CEFTRIAXONE (SHOPPING INSPECTOR) <=1 Susceptible CIPROFLOXACIN (CIP) <=0.25 Susceptible ESBL (-/+) (ESBL) Negative GENTAMICIN (GM) <=2 Susceptible PIP/TAZO (TZP) <=2/4 Susceptible TOBRAMYCIN (TOB) <=2 Susceptible TRIMETH/SULFA (SXT) <=0.5/9.5 SusceptibleCleveland Clinic Fairview HospitalComment on above:Order Comment: Post Surgical AbscessPerformed By: #### [id number] #### [facility] [address] [place] [address], USABASIC METABOLIC PANELon 95-18-4759Wjjbpzf [Mass/Vol]8.2 mg/dLLow8.6-10.3The [facility] HospitalComment on above:Order Comment: No: Do not add to previous drawPerformed By: #### 87414, 19242, 56319 #### [facility] [address] [place] [address], USAChloride [Moles/Vol]103 mmol/JCygdjc86-288Kef [facility] HospitalComment on above:Order Comment: No: Do not add to previous drawPerformed By: #### 34414, 77175, 78251 #### [facility] [address] [place] [address], USACO2 [Moles/Vol]25 mmol/ZMotrvk53-71Wng [facility] HospitalComment on above:Order Comment: No: Do not add to previous draw Performed By: #### 62987, 60578, 96902 #### [facility] [address] [place] [address], USACreatinine [Mass/Vol]0.49 mg/dLLow0.60-1.20The [facility] HospitalComment on above:Order Comment: No: Do not add to previous drawPerformed By: #### 04158, 93602, 01404 #### [facility] [address] [place] [address], USAGFR/1.73 sq M.predicted among blacks MDRD (S/P/Bld) [Vol rate/Area]mL/min/{1.73_m2}Normal>60The [facility] Comment on above:Order Comment: No: Do not add to previous drawPerformed By: #### 59992, 32997, 60280 #### [facility] [address] [place] [address], USAGFR/1.73 sq M.predicted among non-blacks MDRD (S/P/Bld) [Vol rate/Area]mL/min/{1.73_m2}Normal>60The [facility] Comment on above:Order Comment: No: Do not add to previous drawPerformed By: #### 51039, 23496, 23090 #### [facility] [address] [place] [address], USAGlucose [Mass/Vol]94 mg/dDWiquhq71-341Wdt [facility] HospitalComment on above:Order Comment: No: Do not add to previous drawPerformed By: #### 56606, 41028, 43469 #### [facility] [address] [place] [address], USAPotassium [Moles/Vol]4.3 mmol/LNormal3.5-5.1The [facility] HospitalComment on above:Order Comment: No: Do not add to previous drawPerformed By: #### 92187, 80724, 83828 #### [facility] [address] [place] [address], USASodium [Moles/Vol]134 mmol/OVbs505-745Hdq [facility] HospitalComment on above:Order Comment: No: Do not add to previous drawPerformed By: #### 79796, 32759, 95008 #### [facility] [address] [place] [address], USAUrea nitrogen [Mass/Vol]8 mg/dLNormal7-25The [facility] HospitalComment on above:Order Comment: No: Do not add to previous drawPerformed By: #### 68733, 70316, 00838 #### [facility] [address] [place] [address], USAC REACTIVE PROTEINon 83-70-2066BLS [Mass/Vol]136.0 mg/LHigh 0.0-7.0The [facility] HospitalComment on above:Order Comment: No: Do not add to previous drawPerformed By: #### 28116 #### [facility] [address] [place] [address], USACALCIUM IONIZED CBGLon 58-91-4073EZLHIEU CALCIUM1.22 mmol/L Normal1.12-1.30The [facility] HospitalComment on above:Performed By: #### 13184 #### [facility] [address] [place] [address], USACBC COMPLETE BLOOD COUNTon 28-49-4874Maisgvbihas distribution width (RBC) [Ratio]14.5 %Kknzrp85.5-15.0The [facility] HospitalComment on above:Order Comment: RLQ PERIHEPATIC FLUID DRAINAGE Performed By: #### 81073 #### [facility] [address] [place] [address], USAHematocrit (Bld) [Volume fraction]22.8 %Low36.0-45.0The [facility] HospitalComment on above:Order Comment: RLQ PERIHEPATIC FLUID DRAINAGEPerformed By: #### 18724 #### [facility] [address] [place] [address], USAHemoglobin (Bld) [Mass/Vol]7.5 g/dLLow12.0-15.0The [facility] HospitalComment on above:Order Comment: RLQ PERIHEPATIC FLUID DRAINAGEPerformed By: #### 06451 #### [facility] [address] [place] [address], [facility] CENTERMCH (RBC) [Entitic mass]30.5 azGdbgbs99.0-33.0The [facility] HospitalComment on above:Order Comment: RLQ PERIHEPATIC FLUID DRAINAGEPerformed By: #### 17081 #### [facility] [address] [place] [address], [facility] CENTERMCHC (RBC) [Mass/Vol]32.9 g/bUHxoaoa22.0-35.0The [facility] HospitalComment on above:Order Comment: RLQ PERIHEPATIC FLUID DRAINAGEPerformed By: #### 75503 #### [facility] [address] [place] [address], [facility] CENTERMCV (RBC) [Entitic vol]92.7 uWMethdi73.0-98.0The [facility] HospitalComment on above:Order Comment: RLQ PERIHEPATIC FLUID DRAINAGEPerformed By: #### 24154 #### [facility] [address] [address], USANucleated RBC/100 WBC (Bld) [Ratio]0 %Normal0-0The [facility] HospitalComment on above:Order Comment: RLQ PERIHEPATIC FLUID DRAINAGEPerformed By: #### 62343 #### [facility] [address] [place] [address], USAPLAT [id number] 10*3/mMGjgp272-679Oer [facility] HospitalComment on above:Order Comment: RLQ PERIHEPATIC FLUID DRAINAGE Performed By: #### 63238 #### [facility] [address] [place] [address], USARBC (Bld) [#/Vol]2.46 10*6/uLLow3.80-5.00The [facility] HospitalComment on above:Order Comment: RLQ PERIHEPATIC FLUID DRAINAGEPerformed By: #### 58997 #### [facility] [address] [place] [address], USAWBC (Bld) [#/Vol]12.81 10*3/uLHigh4.00-10.60The [facility] HospitalComment on above:Order Comment: RLQ PERIHEPATIC FLUID DRAINAGEPerformed By: #### [id number] #### [facility] [address] [place] [address], USALIVER BATTERYon [id number] [Mass/Vol]2.8 g/dLLow 3.5-5.7The [facility] HospitalComment on above:Order Comment: No: Do not add to previous drawPerformed By: #### [id number], [id number], [id number] #### [facility] [address] [place] [address], USAALKALINE [id number] IU/[id number] [facility] HospitalComment on above:Order Comment: No: Do not add to previous draw Performed By: #### [id number], [id number], [id number] #### [facility] [address] [place] [address], USAALT [Catalytic activity/Vol]55 U/LHigh7-52The [facility] HospitalComment on above:Order Comment: No: Do not add to previous drawPerformed By: #### [id number], [id number], [id number] #### [facility] [address] [place] [address], USAAST [Catalytic activity/Vol]38 U/FDcohfn12-59Yow [facility] HospitalComment on above:Order Comment: No: Do not add to previous drawPerformed By: #### [id number], [id number], [id number] #### [facility] [address] [place] [address], USABilirubin [Mass/Vol]2.9 mg/dLHigh0.3-1.0The [facility] HospitalComment on above:Order Comment: No: Do not add to previous drawPerformed By: #### [id number], [id number], [id number] #### [facility] [address] [place] [address], USABilirubin.direct [Mass/Vol]1.7 mg/dLHigh0.0-0.2The [facility] HospitalComment on above:Order Comment: No: Do not add to previous drawPerformed By: #### [id number], [id number], [id number] #### [facility] [address] [place] [address], USAProtein [Mass/Vol]5.6 g/dLLow6.0-8.3The [facility] HospitalComment on above:Order Comment: No: Do not add to previous drawPerformed By: #### [id number], [id number], [id number] #### [facility] [address] [place] [address], USAMAGNESIUM BLOODon [id number] [Mass/Vol]2.1 mg/dL Normal1.9-2.7The [facility] HospitalComment on above:Order Comment: No: Do not add to previous drawPerformed By: #### 05407, 53934, 29987 #### [facility] [address] [place] [address], USAPHOSPHORUS BLOODon [id number] [Mass/Vol]3.6 mg/dL Normal2.5-5.0The [facility] HospitalComment on above:Order Comment: No: Do not add to previous drawPerformed By: #### 11238, 32191, 12363 #### [facility] [address] [place] [address], USAPOC GLUCOSE LABon 99-77-5178Iebgtsf [Mass/Vol]101 mg/dLHigh 70-100The [facility] HospitalComment on above:Performed By: #### 10638 #### [facility] [address] [place] [address], USAGlucose [Mass/Vol]107 mg/eGAywu47-849Btw [facility] HospitalComment on above:Performed By: #### 05706 #### [facility] [address] [place] [address], USAGlucose [Mass/Vol]114 mg/yDBlms59-222Mhv [facility] HospitalComment on above:Performed By: #### 12470 #### [facility] [address] [place] [address], USAPREALBUMINon 94-86-2556Fydidupupa [Mass/Vol]12.6 mg/dLLow 17.0-34.0The [facility] HospitalComment on above:Order Comment: No: Do not add to previous drawPerformed By: #### 24112, 99404, 87032 #### [facility] [address] [place] [address], USATRIGLYCERIDES BLOODon 10-37-3115Jcybdhwytokr [Mass/Vol]122 mg/fGCperiz74-859Klt [facility] HospitalComment on above:Order Comment: No: Do not add to previous drawResult Comment: TRIGLYCERIDE REFERENCE RANGE: 20 YEARS AND OLDER CARDIOVASCULAR RISK LESS THAN 150 mg/dl LOW RISK 150 TO 199 mg/dl BORDERLINE RISK 200 mg/dl AND GREATER HIGH RISKPerformed By: #### 57108, 14957, 22616 #### [facility] [address] [place] [address], USAAPTTon 29-10-3384fAOK Coag (Bld) [Time]26.1 sNormal 25.0-35.0The [facility] HospitalComment on above:Result Comment: ALL RESULTS MUST BE INTERPRETED WITH RESPECT TO BLOOD DRAWING ARTIFACT OR DILUTION ERROR OF ANTICOAGULANT AT THE TIME OF SAMPLING. THE APTT SHOULD NOT BE USED TO MONITOR UNFRACTIONATED HEPARIN THERAPY, THIS LABORATORY NO LONGER HAS AN ESTABLISHED THERAPEUTIC RANGE BASED ON THE APTT. IT IS RECOMMENDED THAT THE UFH - HEPARIN ASSAY (ANTI-XA ACTIVITY) BE USED FOR THIS PURPOSE.Performed By: #### 89980 #### [facility] [address] [place] [address], USABASIC METABOLIC PANELon 14-88-8241Kokcuog [Mass/Vol]8.3 mg/dLLow8.6-10.3The [facility] HospitalComment on above:Order Comment: No: Do not add to previous drawPerformed By: #### 97630, 29934, 98136 #### [facility] [address] [place] [address], USAChloride [Moles/Vol]102 mmol/WPuxmld65-511Krk [facility] HospitalComment on above:Order Comment: No: Do not add to previous drawPerformed By: #### 76705, 28649, 54585 #### [facility] [address] [place] [address], USACO2 [Moles/Vol]26 mmol/DPuveix58-84Sdh [facility] HospitalComment on above:Order Comment: No: Do not add to previous draw Performed By: #### 81525, 87033, 76187 #### [facility] [address] [place] [address], USACreatinine [Mass/Vol]0.43 mg/dLLow0.60-1.20The [facility] HospitalComment on above:Order Comment: No: Do not add to previous drawPerformed By: #### 21419, 15574, 19965 #### [facility] [address] [place] [address], USAGFR/1.73 sq M.predicted among blacks MDRD (S/P/Bld) [Vol rate/Area]mL/min/{1.73_m2}Normal>60The [facility] Comment on above:Order Comment: No: Do not add to previous drawPerformed By: #### 58033, 40390, 43244 #### [facility] [address] [place] [address], USAGFR/1.73 sq M.predicted among non-blacks MDRD (S/P/Bld) [Vol rate/Area]mL/min/{1.73_m2}Normal>60The [facility] Comment on above:Order Comment: No: Do not add to previous drawPerformed By: #### 81177, 26009, 91977 #### [facility] [address] [place] [address], USAGlucose [Mass/Vol]100 mg/eNVabtxu54-903Mwv [facility] HospitalComment on above:Order Comment: No: Do not add to previous drawPerformed By: #### 07665, 29286, 86163 #### [facility] [address] [place] [address], USAPotassium [Moles/Vol]3.3 mmol/LLow3.5-5.1The [facility] HospitalComment on above:Order Comment: No: Do not add to previous drawPerformed By: #### 54556, 03668, 68104 #### [facility] [address] [place] [address], USASodium [Moles/Vol]135 mmol/IQdf057-200Eyp [facility] HospitalComment on above:Order Comment: No: Do not add to previous drawPerformed By: #### 23931, 04387, 07055 #### [facility] [address] [place] [address], USAUrea nitrogen [Mass/Vol]8 mg/dLNormal7-25The [facility] HospitalComment on above:Order Comment: No: Do not add to previous drawPerformed By: #### 69117, 57232, 89457 #### [facility] [address] [place] [address], USACBC W/DIFFon 60-00-7997GVX IMM GRANS0.4 10*3/uLHigh0.0-0.2 The [facility] HospitalComment on above:Order Comment: RLQ PERIHEPATIC FLUID DRAINAGEPerformed By: #### 18185 #### [facility] [address] [place] [address], USAABS WPJXVAKGCUB20.4 10*3/uLHigh1.6-7.6The [facility] HospitalComment on above:Order Comment: RLQ PERIHEPATIC FLUID DRAINAGEPerformed By: #### 96974 #### [facility] [address] [place] [place] [address], USABasophils (Bld) [#/Vol]0.0 10*3/uLNormal0.0-0.2The [facility] HospitalComment on above:Order Comment: RLQ PERIHEPATIC FLUID DRAINAGEPerformed By: #### 33458 #### [facility] [address] [place] [address], USABasophils/100 WBC (Bld)0.2 %Normal0.0-1.0The [facility] HospitalComment on above:Order Comment: RLQ PERIHEPATIC FLUID DRAINAGEPerformed By: #### 31388 #### [facility] [address] [place] [address], USAEosinophils (Bld) [#/Vol]0.1 10*3/uLNormal0.0-0.5The [facility] HospitalComment on above:Order Comment: RLQ PERIHEPATIC FLUID DRAINAGEPerformed By: #### 21901 #### [facility] [address] [place] [address], USAEosinophils/100 WBC (Bld)0.5 %Normal0.0-6.0The [facility] HospitalComment on above:Order Comment: RLQ PERIHEPATIC FLUID DRAINAGEPerformed By: #### 78801 #### [facility] [address] [place] [address], USAErythrocyte distribution width (RBC) [Ratio]14.0 %Normal 11.5-15.0The [facility] HospitalComment on above:Order Comment: RLQ PERIHEPATIC FLUID DRAINAGEPerformed By: #### 71001 #### [facility] [address] [place] [address], USAHematocrit (Bld) [Volume fraction]23.5 %Low36.0-45.0The [facility] HospitalComment on above:Order Comment: RLQ PERIHEPATIC FLUID DRAINAGEPerformed By: #### 36455 #### [facility] [address] [place] [address], USAHemoglobin (Bld) [Mass/Vol]7.5 g/dLLow12.0-15.0The [facility] HospitalComment on above:Order Comment: RLQ PERIHEPATIC FLUID DRAINAGEPerformed By: #### 91056 #### [facility] [address] [place] [address], USAIMMATURE GRANS2.6 %High0.0-1.0The [facility] HospitalComment on above:Order Comment: RLQ PERIHEPATIC FLUID DRAINAGE Performed By: #### 73159 #### [facility] [address] [place] [address], USALymphocytes (Bld) [#/Vol]1.7 10*3/uLNormal1.2-4.0The [facility] HospitalComment on above:Order Comment: RLQ PERIHEPATIC FLUID DRAINAGEPerformed By: #### 43053 #### [facility] [address] [place] [address], USALymphocytes/100 WBC (Bld)10.9 %Low20.0-45.0The [facility] HospitalComment on above:Order Comment: RLQ PERIHEPATIC FLUID DRAINAGEPerformed By: #### 25445 #### [facility] [address] [place] [address], [facility] [place] ([place]) [Entitic mass]30.2 uwZfgsuh87.0-33.0The [facility] HospitalComment on above:Order Comment: RLQ PERIHEPATIC FLUID DRAINAGEPerformed By: #### 53311 #### [facility] [address] [place] [address], [facility] ([place]BC) [Mass/Vol]31.9 g/dLLow32.0-35.0The [facility] HospitalComment on above:Order Comment: RLQ PERIHEPATIC FLUID DRAINAGEPerformed By: #### 51195 #### [facility] [address] [place] [place] [address], [facility] [facility] [place] ([place]BC) [Entitic vol]94.8 lAPgwets90.0-98.0The [facility] HospitalComment on above:Order Comment: RLQ PERIHEPATIC FLUID DRAINAGEPerformed By: #### 60218 #### [facility] [address] [address], USAMonocytes (Bld) [#/Vol]0.9 10*3/uLNormal0.1-1.0The [facility] HospitalComment on above:Order Comment: RLQ PERIHEPATIC FLUID DRAINAGEPerformed By: #### 71221 #### [facility] [address] [place] [address], USAMONOS5.7 %Normal5.0-12.0The [facility] HospitalComment on above:Order Comment: RLQ PERIHEPATIC FLUID DRAINAGEPerformed By: #### 65781 #### [facility] [address] [place] [address], USANeutrophils/100 WBC (Bld)80.1 %High40.0-72.0The [facility] HospitalComment on above:Order Comment: RLQ PERIHEPATIC FLUID DRAINAGEPerformed By: #### 35436 #### [facility] [address] [place] [address], USANucleated RBC/100 WBC (Bld) [Ratio]0 %Normal0-0The [facility] HospitalComment on above:Order Comment: RLQ PERIHEPATIC FLUID DRAINAGEPerformed By: #### 35421 #### [facility] [address] [place] [address], USAPLAT ORR337 10*3/hZDozx395-766Ikn [facility] HospitalComment on above:Order Comment: RLQ PERIHEPATIC FLUID DRAINAGE Performed By: #### 03149 #### [facility] [address] [place] [address], USARBC (Bld) [#/Vol]2.48 10*6/uLLow3.80-5.00The [facility] HospitalComment on above:Order Comment: RLQ PERIHEPATIC FLUID DRAINAGEPerformed By: #### 12200 #### [facility] [address] [place] [address], USAWBC (Bld) [#/Vol]15.45 10*3/uLHigh4.00-10.60The [facility] HospitalComment on above:Order Comment: RLQ PERIHEPATIC FLUID DRAINAGEPerformed By: #### 77396 #### [facility] [address] [facility] [address], USACT ABDOMEN AND PELVIS W ORAL CONTRASTon [id number] ABDOMEN AND PELVIS W ORAL CONTRASTUnSumma Health [facility] Campus Department of Radiology [address] [place] [address] Patient Name: JULIA QUISPE : 1970 Sex: F Age: Race: White Pt. Location: [id number] Patient Status: I Ordered Date: 10/23/2021 4:05:00 PM Completed Date: 10/23/2021 09:55 PM Requesting Provider: CARRIE JOHNSON Attending Provider: JESSICA BARBOSA Report Copy To: Signs & Symptoms: Abscess [...] atelectasis, favored over mild pneumonia There is ryva-nv-rnqwzefi pericardial effusion Close follow-up is suggested to document clearing and normalization Bone reconstructions No compression fracture No aggressive disc disease seen IMPRESSION: Large complex fluid collection or hematoma in the right lateral abdomen extending from the gallbladder fossa and subhepatic space to the right pelvis and cul-de-sac measuring up to around 8 cm diameter There is gas within this structu (more content not included)...NormalThe [facility] HospitalComment on above:Order Comment: Fluid Collection, distinguish colon from abscess for IR drainMAGNESIUM BLOODon [id number] [Mass/Vol]2.1 mg/dLNormal1.9-2.7The [facility] HospitalComment on above:Order Comment: No: Do not add to previous draw Performed By: #### 41718, 96010, 16745 #### [facility] [address] [place] [address], [facility]ICAL CENTERPHOSPHORUS BLOODon [id number] [Mass/Vol]2.6 mg/dL Normal2.5-5.0The [facility] HospitalComment on above:Order Comment: No: Do not add to previous drawPerformed By: #### 07421, 36339, 31552 #### [facility] [address] [place] [address], [facility]ICAL CENTERPROTHROMBIN TIMEon [id number] Coag (PPP) [Relative time] 1.07 {INR}Normal0.91-1.16The [facility] HospitalComment on above:Order Comment: No: Do not add to previous drawResult Comment: ACCCP RECOMMENDED INR FOR WARFARIN THERAPY ------- CONDITION INR PROPHYLAXIS OF VENOUS THROMBOSIS 2-3 (HIGH-RISK SURGERY) TREATMENT OF VENOUS THROMBOSIS 2-3 TREATMENT OF PULMONARY EMBOLISM 2-3 PREVENTION OF SYSTEMIC EMBOLISM: 2-3 ACUTE MYOCARDIAL INFARCTION TISSUE HEART VALVES VALVULAR HEART DISEASE ATRIAL FIBRILLATION RECURRENT SYSTEMIC EMBOLISM MECHANICAL HEART VALVE 2.5-3.5 FROM: ORAL ANTICOAGULANTS. MECHANISM OF ACTION, CLINICAL EFFECTIVENESS, AND OPTIMAL THERAPEUTIC RANGE. CHEST 1995;108:231S-246S.Performed By: #### 11495 #### [facility] [address] [place] [id number], USAPT Coag (PPP) [Time]13.9 hPfbclk19.3-14.8The [facility] HospitalComment on above:Order Comment: No: Do not add to previous drawResult Comment: ALL RESULTS MUST BE INTERPRETED WITH RESPECT TO BLOOD DRAWING ARTIFACT OR DILUTION ERROR OF ANTICOAGULANT AT THE TIME OF SAMPLING.Performed By: #### 50747 #### [facility] [address] [facility] [address], USACardiovascular Lab Reporton [id number] Lab ReportUnEast [facility] Patient Name: Julia Quispe MR #[id number] Physician: Josias Ruiz MD Service Date: 07/21/2021 Department of Birthdate: 1970 Medicine Room #: CC Division of Cardiology Adult Cardiovascular Services [place] [address] Cardiovascular Laboratory Report EP STUDY AND AVNRT [...] time, I felt t (more content not included)...NormalThe [facility]rville HospitalBASIC METABOLIC PANELon [id number] [Mass/Vol]9.3 mg/dLNormal8.6-10.3The [facility] HospitalComment on above: Performed By: #### 26236, 27902, 26172 #### [facility] [address] [place] [address], USAChloride [Moles/Vol]109 mmol/YRrql72-277Lzr [facility] HospitalComment on above:Performed By: #### 91452, 60332, 80065 #### [facility] [address] [place] [address], USACO2 [Moles/Vol]23 mmol/EHhswmd18-18Fxe [facility] HospitalComment on above:Performed By: #### 75888, 92845, 03154 #### [facility] [address] [place] [address], USACreatinine [Mass/Vol]0.87 mg/dLNormal0.60-1.20The [facility] HospitalComment on above:Performed By: #### 50264, 08923, 49275 #### [facility] [address] [place] [address], USAGFR/1.73 sq M.predicted among blacks MDRD (S/P/Bld) [Vol rate/Area]mL/min/{1.73_m2}Normal>60The [facility] Comment on above:Performed By: #### 08873, 51110, 08719 #### [facility] [address] [place] [address], USAGFR/1.73 sq M.predicted among non-blacks MDRD (S/P/Bld) [Vol rate/Area]mL/min/{1.73_m2}Normal>60The [facility] Comment on above:Performed By: #### 67834, 75550, 10379 #### [facility] [address] [facility] [address], USAGlucose [Mass/Vol]97 mg/wYAnlgpp68-917Sis [facility] HospitalComment on above:Performed By: #### 82774, 81806, 95839 #### [facility] [address] [facility] [address], USAPotassium [Moles/Vol]5.0 mmol/LNormal3.5-5.1The [facility] HospitalComment on above:Performed By: #### 62133, 90760, 97269 #### [facility] [address] [place] [place] [address], USASodium [Moles/Vol]140 mmol/FIzpwgt947-939Zzw [facility] HospitalComment on above:Performed By: #### 01987, 01637, 73484 #### [facility] [address] [facility] [address], USAUrea nitrogen [Mass/Vol]20 mg/dLNormal7-25The [facility] HospitalComment on above:Performed By: #### 48795, 25771, 91002 #### [facility] [address] [facility] [address], USACBC W/DIFFon 39-91-9822NJY IMM GRANS0.0 10*3/uLNormal 0.0-0.2The [facility] HospitalComment on above:Performed By: #### 29729 #### [facility] [address] [facility] [address], USAABS NEUTROPHILS7.4 10*3/uLNormal1.6-7.6The [facility] HospitalComment on above:Performed By: #### 57639 #### [facility] [address] [facility] [address], USABasophils (Bld) [#/Vol]0.1 10*3/uLNormal0.0-0.2The [facility] HospitalComment on above:Performed By: #### 59154 #### [facility] [address] [facility] [address], [facility]ICAL CENTERBasophils/100 WBC (Bld)0.5 %Normal0.0-1.0The [facility] HospitalComment on above:Performed By: #### 40023 #### [facility] [address] [facility] [address], USAEosinophils (Bld) [#/Vol]0.2 10*3/uLNormal0.0-0.5The [facility] HospitalComment on above:Performed By: #### 05768 #### [facility] [address] [facility] [address], USAEosinophils/100 WBC (Bld)1.6 %Normal0.0-6.0The [facility] HospitalComment on above:Performed By: #### 04268 #### [facility] [address] [facility] [address], USAErythrocyte distribution width (RBC) [Ratio]13.7 %Normal 11.5-15.0The [facility] HospitalComment on above:Performed By: #### 54147 #### [facility] [address] [facility] [place] [address], USAHematocrit (Bld) [Volume fraction]44.8 %Lnkgew47.0-45.0The [facility] HospitalComment on above:Performed By: #### 73983 #### [facility] [address] [place] [address], [facility]ICAL CENTERHemoglobin (Bld) [Mass/Vol]14.7 g/bZOleadx32.0-15.0The [facility] HospitalComment on above:Performed By: #### 45264 #### [facility] [address] [facility] [address], USAIMMATURE GRANS0.2 %Normal0.0-1.0The [facility] HospitalComment on above:Performed By: #### 40636 #### [facility] [address] [facility] [place] [address], [facility] MEDICAL CENTERLymphocytes (Bld) [#/Vol]1.7 10*3/uLNormal1.2-4.0The [facility] HospitalComment on above:Performed By: #### 40284 #### [facility] [address] [address], USALymphocytes/100 WBC (Bld)17.2 %Low20.0-45.0The [facility] HospitalComment on above:Performed By: #### 12889 #### [facility] [address] [facility] [place] [address], [facility] CENTERMCH (RBC) [Entitic mass]32.3 raMawyqi25.0-33.0The [facility] HospitalComment on above:Performed By: #### 49127 #### [facility] [address] [facility] [place] [address], [facility] CENTERMCHC (RBC) [Mass/Vol]32.8 g/qXUpmznt66.0-35.0The [facility] HospitalComment on above:Performed By: #### 21674 #### [facility] [address] [place] [address], USAMCV (RBC) [Entitic vol]98.5 wBWbvp13.0-98.0The [facility] HospitalComment on above:Performed By: #### 02647 #### [facility] [address] [place] [address], USAMonocytes (Bld) [#/Vol]0.6 10*3/uLNormal0.1-1.0The [facility] HospitalComment on above:Performed By: #### 05278 #### [facility] [address] [place] [address], USAMONOS6.1 %Normal5.0-12.0The [facility] HospitalComment on above:Performed By: #### 84701 #### [facility] [address] [place] [address], USANeutrophils/100 WBC (Bld)74.4 %High40.0-72.0The [facility] HospitalComment on above:Performed By: #### 32796 #### [facility] [address] [place] [address], USANucleated RBC/100 WBC (Bld) [Ratio]0 %Normal0-0The [facility] HospitalComment on above:Performed By: #### 71927 #### [facility] [address] [place] [address], USAPLAT VTN619 10*3/vOHvsxwj512-433Dym [facility] HospitalComment on above:Performed By: #### 46692 #### [facility] [address] [place] [address], USARBC (Bld) [#/Vol]4.55 10*6/uLNormal3.80-5.00The [facility] HospitalComment on above:Performed By: #### 62270 #### [facility] [address] [facility] [place] [address], [facility] CENTERWBC (Bld) [#/Vol]9.92 10*3/uLNormal4.00-10.60The [facility] HospitalComment on above:Performed By: #### 48618 #### [facility] [address] [facility] [place] [address], [facility] Vital Signs Date TimeVital SignValuePerforming JteuqatakXjalonjn12-04-0778 11:46-0400Body rdoptd613.02 cmJacques Zavala MD Work Phone: [phone]09-26-2025 11:46-0400 Body mass index (BMI) [Ratio]29.9 kg/j0KgtyjdJacques Zavala MD Work Phone: [phone] [place], [place] 2946609-26-2025 11:46-0400 Body litdlr87.65 kgJacques Zavala MD Work Phone: [phone]09-26-2025 11:46-0400 Diastolic blood frykzaho58 mm[Hg]Jacques Zavala MD Work Phone: [phone]09-26-2025 11:46-0400 Systolic blood hqwsoweh740 mm[Hg]Jacques Zavala MD Work Phone: [facility]09-17-2025 15:42-0400 Body mass index (BMI) [Ratio]30.11 kg/j1Yuqai Alvin DO Work Phone: [facility] HospitalUupstavwga66-23-6550 15:42-0400Body zipsoa54.11 kgCorey Alvin DO Work Phone: [facility] HospitalZnzzcooejp50-17-0328 15:42-0400Diastolic blood vdepvqvt06 mm[Hg]Luis Angel Alvin DO Work Phone: [facility] HospitalRimhipqdpu01-21-3685 15:42-0400Systolic blood kgxoggfh051 mm[Hg]Luis Angel Alvin DO Work Phone: [facility] HospitalIwdxvuyckx99-77-3578 15:20-0400Body mass index (BMI) [Ratio]30.96 kg/v2Jsrlu Alvin DO Work Phone: [facility] HospitalSngkaxrxyv74-75-7435 15:20-0400Body .27 kgCorey Alvin DO Work Phone: 1(682)[facility] [place], [place] [address]Yutljeeclj80-00-9216 16:28-0400Body mass index (BMI) [Ratio]28.84 kg/x3Umsvt Alvin DO Work Phone: 1(767)[facility] [place], [place] [address]Jjfsfurirn97-94-0075 16:28-0400Body .85 kgCorey Alvin DO Work Phone: [phone])[facility] [place], [place] [address]Rwrvenjzuz80-96-1683 16:28-0400Diastolic blood mm[Hg]Luis Angel Alvin DO Work Phone: 1(198)[facility] [place], [place] [address]Kpwbqrynez23-69-4916 16:28-0400Systolic blood ydusobvi008 mm[Hg]Luis Angel Alvin DO Work Phone: 1(689)[facility] [place], [place] [address]Smaxjbrgtj15-63-3330 15:42-0500Body mass index (BMI) [Ratio]26.57 kg/n9Nqsta Alvin DO Work Phone: 1(816)[facility] [place], [place] [address]Hmkztytell06-13-8805 15:42-0500Body ixzbgc51.04 kgCorey Alvin DO Work Phone: 1(625)[facility] [place], [place] [address]Hrymnchdfx21-66-4218 15:42-0500Diastolic blood ljletxnf69 mm[Hg]Luis Angel Alvin DO Work Phone: [phone])[facility] [place], [place] [address]Utoknaetec50-52-2960 15:42-0500Systolic blood zesurdkg029 mm[Hg]Luis Angel Alvin DO Work Phone: 1(039)[facility]-[address] HospitalZcjedtpcke61-69-9285 15:30-0400Body rkytbb507.56 cmJacques Zavala Other [facility] Other 06-12-2023 15:30-0400Body mass index (BMI) [Ratio] 21.28 kg/w4WeyaxuJacques Zavala Other [employer] Other 06-12-2023 15:30-0400Body xtuumy72.25 kgSophiechris Zavala Other [employer] [facility] Other 06-12-2023 15:30-0400Diastolic blood ifeoxkst49 mm[Hg] Jacques Zavala Other [employer] Other 06-12-2023 15:30-0400Systolic blood sfqigyrt864 mm[Hg] Jacques Zavala Other [employer] Other 05-03-2023 11:30-0400Body mwetii748.56 cmJacques Zavala Other [employer] [facility] Other 05-03-2023 11:30-0400Body mass index (BMI) [Ratio] 21.28 kg/l5XtaxnkJacques Zavala Other [employer] [facility] Other 05-03-2023 11:30-0400Body tbxigb93.25 kgJacques Zavala Other [facility] Other 05-03-2023 11:30-0400Diastolic blood ibrkwuiw58 mm[Hg] Jacques Zavala Other [employer] Other 05-03-2023 11:30-2318QkL2% (BldA) [Mass fraction]97 % Jacques Zavala Other [employer] [facility] Other 05-03-2023 11:30-0400Systolic blood mm[Hg] Jacques Zavala Other [employer] Other Encounters Encounter DateEncounter TypeCare ProviderFacilityStart: 03-22-2025 End: 77-42-4045aevifigibrWbhxfy E Braun MD Work Phone: [facility] Work Phone: Start: 03-22-2025 End: 21-71-4166Lnseuie encounter procedureJacques Zavala MD-[facility] Work Phone: Start: 03-19-2025 End: 56-74-1648nmjgutbcvxTvpcvb R. ZieberFacility:[facility] HospitalStart: 53-67-5294Rku-patient / Non-visitCorey Alvin-[facility] Work Phone: Start: 03-13-2025 End: 37-61-0555zbkiyvteynMOTFW FAZIONot AvailableStart: 03-13-2025 End: 63-23-1337Uovsqczo preventive med est patient 40-64yrsCorey Alvin DO Work Phone: [facility] [place] OBGYNComment on above:Well woman exam with routine gynecological exam; Encounter for screening mammogram for malignant neoplasm of breast; Postmenopausal stateStart: 03-13-2025 End: 95-84-6288Bjyskh flowsheetCorey Alvin DO Work Phone: [facility] [place] OBGYNStart: 03-13-2025 End: 20-10-5864Iavsjj flowsheetCorey Alvin DO Work Phone: [facility] [place] OBGYNStart: 03-13-2025 End: 24-77-1158Mfummysva Result EncounterCorey Alvin DO Work Phone: NOZN External Department UnsolicitedStart: 03-13-2025 End: 24-01-6481Gfquvff encounter procedureCorey Alvin DO Work Phone: [facility] HealthcareStart: 02-28-2025 End: 29-50-0192Cupdui outpatient visit 25 minutesCajuve Farooq DPM Work Phone: [facility] [place] PodiatryComment on above:Ingrown toenail (Primary Dx); Pain of toe of right footStart: 02-28-2025 End: 61-73-5090zsuqwbyhwiXNUGVNSQK H SMITHNot AvailableStart: 02-28-2025 End: 86-03-5094Lyefpd cassyAshutosh Veto Oseas DPM Work Phone: [facility] [place] PodiatryStart: 02-28-2025 End: 35-66-8198Mhoxvt Opal Farooq DPM Work Phone: [facility] [place] PodiatryStart: 02-26-2025 End: 79-56-4046ahyirphtibGcelof R. ZieberFacility:[facility] HospitalStart: 02-21-2025 End: 90-52-5613gamxjcvrobWLZRZRHGN SMITHNot AvailableStart: 02-19-2025 End: 43-38-6717vxobpwjoboNbahcw R. ZieberFacility:[facility] HospitalStart: 02-07-2025 End: 48-69-1425byhprqodjnVktdgy Louie HayesFacility:[facility] HospitalStart: 01-30-2025 End: 61-40-1116ozewwsxcxwCwusdf Louie JuanerFacility:[facility] HospitalStart: 01-22-2025 End: 57-06-0146hchzfluermJihwzl Louie JuanerFacility:[facility] HospitalStart: 01-17-2025 End: 35-12-9370atwcptehsuWfohqx Louie HayesFacility:[facility] HospitalStart: 01-10-2025 End: 44-11-8042nsszihksjlFtsff Jennifer UriasFacility:[facility] HospitalStart: 01-03-2025 End: 89-98-7887ikhtfeftdaWsvmmm Louie JuanerFacility:[facility] HospitalStart: 01-01-2025 End: 90-14-9994okmmglufvwAqqai Jennifer UriasFacility:[facility] HospitalStart: 12-25-2024 End: 81-24-5697sbdffjysrgRjkilv Louie HayesFacility:[facility] HospitalStart: 11-28-2024 End: 84-23-5675nvmfpninfhIwoist R. ZieberFacility:[facility] HospitalStart: 11-22-2024 End: 36-99-6220pvoqtwtplcIXOSMGOXW SMITHNot AvailableStart: 11-22-2024 End: 56-57-9682Fobkllq encounter procedureCorey Alvin DO Work Phone: [facility] BCP OBComment on above:Encounter for surveillance of injectable contraceptiveStart: 09-05-2024 End: 08-37-3384zrlzsrnoeoMDORPZAYY SMITHNot AvailableStart: 06-13-2024 End: 39-71-4577pgsvskgpzfVFGKEFLOU SMITHNot AvailableStart: 04-26-2024 End: 16-25-3611fdpbxrlbiuPL Jacques Zavala Work Phone: [facility] Work Phone: Start: 04-26-2024 End: 98-04-2663Zskgunt encounter procedureMD Jacques Zavala Work Phone: [facility] Work Phone: Start: 03-27-2024 End: 72-25-0612yfrgudguylZRKJUMAIO SMITHNot AvailableStart: 44-48-8142Nmr- patient / Non-visitMD Jacques Zavala Work Phone: [facility] Work Phone: Start: 03-07-2024 End: 39-94-5517Thucattg preventive med est patient 40-64yrsCorey Alvin DO Work Phone: [facility] BCP OBComment on above:Encounter for management and injection of depo-Provera; Breast cancer screening by mammogram; Postmenopausal stateStart: 03-07-2024 End: 57-97-1399Avtlsa flowsheetCorey Alvin DO Work Phone: [facility] OBStart: 03-07-2024 End: 38-69-6754Tiacyyggi Result EncounterCorey Alvin DO Work Phone: NOYE External Department UnsolicitedStart: 03-07-2024 End: 82-70-4087Njeuougba Result EncounterCorey Alvin DO Work Phone: noms External Department UnsolicitedStart: 03-01-2024 End: 83-90-9524nxmthxerkuIX Jacques Zavala Work Phone: [facility] Work Phone: Start: 03-01-2024 End: 87-06-6106Fonsnsv encounter procedureMD Jacques Zavala Work Phone: [facility] Work Phone: Start: 02-14-2024 End: 40-07-9546wdozqrcbhcJK Marcia E Braun Work Phone: [facility] Work Phone: Start: 02-14-2024 End: 90-18-8077Fhquswr encounter procedureMD Jacques Zavala Work Phone: [facility] [address] Work Phone: start: 12-06-2023 End: 14-25-9851nkasakntmyNU Marcia E Braun Work Phone: [facility] Work Phone: Start: 12-06-2023 End: 90-34-4280Annhogk encounter procedureMD Jacques Zavala Work Phone: [facility] [address] Work Phone: start: 09-29-2023 End: 84-06-1850dbrnjbwipsWD Marcia E Braun Work Phone: [facility] Work Phone: Start: 09-29-2023 End: 44-46-8982Qymgsft encounter procedureMD Jacques Zavala Work Phone: [facility] [address] Work Phone: start: 09-16-2023 End: 56-25-4969aqvzkncvcpOD Marcia E Braun Work Phone: [facility] Work Phone: Start: 09-16-2023 End: 34-86-8220Uzvmfhu encounter procedureMD Jacques Zavala Work Phone: [facility] [address] Work Phone: start: 08-02-2023 End: 09-56-0551Gcvnui outpatient visit 5 minutesCorey Alvin DO Work Phone: [facility] OBComment on above:Encounter for management and injection of depo-ProveraStart: 07-29-2023 End: 05-85-9704rwzliadpjzNY Marcia E Braun Work Phone: [facility] Work Phone: Start: 07-29-2023 End: 51-67-1011Edwqruu encounter procedureMD Jacques Zavala Work Phone: [facility] [address] Work Phone: start: 06-24-2023 End: 11-82-4253uaifvyvlzrGG Marcia E Braun Work Phone: [facility] Work Phone: Start: 06-24-2023 End: 63-98-6550Zupjieq encounter procedureMD Jacques Zavala Work Phone: [facility] [address] Work Phone: start: 06-22-2023 End: 76-52-9673kkcihssqanGyktpb Braun Other [facility] Other Start: 63-19-3868Mixnmuawr encounterJacques ZavalaMartin Memorial Hospitaltart: 06-07-2023 End: 05-75-0695mqxfwooxfkKT Marcia E Braun Work Phone: [facility] Work Phone: Start: 06-07-2023 End: 54-84-7655Qigbesc encounter procedureMD Jacques Zavala Work Phone: [facility] [address] Work Phone: start: 05-24-2023 End: 69-20-0720zxekczenlaAW Marcia E Braun Work Phone: [facility] Work Phone: Start: 05-24-2023 End: 48-94-8541Ecvakuo encounter procedureMD Jacques Zavala Work Phone: [facility] [address] Work Phone: start: 05-13-2023 End: 51-82-9372gmchelnhgeCR Marcia E Braun Work Phone: [facility] Work Phone: Start: 05-13-2023 End: 05-85-7576Mweczfr encounter procedureMD Jacques Zavala Work Phone: [facility] [address] Work Phone: start: 12-08-2022 End: 05-82-1292kzmxsfpfwxAqspng Braun Other [facility] Other Start: 05-13-2941Ofacorssp encounterJacques Chavira [facility]tart: 12-06-2022 End: 49-34-4961uimairilbqBoqucf Braun Other [facility] Other Start: 89-02-4009Tgqjce outpatient visit 15 minutes [facility] ClinicStart: 44-84-3215Bcejtl outpatient visit 15 minutesJacques Strauss [facility] ClinicStart: 10-27-2022 End: 96-43-6351uhmpknqhmwEK JACQUES Poon [facility] Other Start: 72-97-6776hnsxxrvlfjLRYNMIJL CULLENFacility: Start: 05-07-2022 End: 82-02-6827hopdpdqeedVN LUIS ANGEL ALVIN .Facility:V7Cubvk: 04-07-2022 Gynecological examination normalJacques Zavala Other [place] [facility] Other Start: 02-01-2022 End: 57-48-1511ezubkmmkquJT LUIS ANGEL ALVIN .Facility:K3Wvbwd: 11-05-2021 End: 88-12-4558Xympmrvldy and management of inpatientMARCIA BRAUNFacility:[facility] Start: 10-23-2021 End: 98-06-1699Iydlkkpxxc and management of inpatientMARCIA BRAUNFacility:[facility] Procedures DateProcedureProcedure DetailPerforming ClinicianStart: 14-44-4444NOY,APTIMA HPV,AGE GDLNCorey Alvin DO Work Phone: Start: 34-55-8245Bfmyi test visual color cmprsn methsCorey Alvin DO Work Phone: Start: 46-04-6108EHV,APTIMA HPV,AGE GDLNCorey Alvin DO Work Phone: Start: 70-81-3167Hclvu X-ray of left elbowMD Jacques Zavala Work Phone: Start: 12-75-9318Jfuwl test visual color cmprsn methsCorey Alvin DO Work Phone: Start: 73-68-6098Dmmxglqfg for malignant neoplasm of breastJacques Sally Other End: 25-49-7789Rssvaygpkhzkl care educationJacques Sally Other End: 16-82-4150Gptvlsfqmt screeningSophiejamara Sally Other Plan of Treatment DateCare ActivityDetailAuthorStart: 03-19-2026 End: 10-59-6792Dfhaksj encounter jxhmfhudq25/23/2026 3:00 PM EDT Procedure Visit REGINO COOL [address] [place] [address] Lius Angel Esquivel, DO [address] [address] NOMLynda [place] OBGYNStart: 03-17-2026 End: 15-29-6596Vapljjc encounter gyvqcykvs26/21/2026 8:30 AM EDT Procedure Visit [facility]GINO [facility] [address] [place] [address] Luis Angel Esquivel, DO [address] [address] REGINO [place] OBGYNStart: 05-16-2025 End: 38-09-3428Onsbjolx Fqphrmr7205/16/2025 3:00 PM EST Clinical Support REGINO COOL [address] [place], [id number] NOMLynda [place] OBGYNStart: 04-16-2025 End: 44-95-2337Irjytwa encounter qlihohugd04/21/2025 3:30 PM EDT Office Visit [facility] [address] [place] [address] Alissa Farooq DPM [address] [place] [address] NOMLynda [facility] PodiatryStart: 03-13-2025 End: 39-02-2296Fqcuytg encounter procedureNOMS BCP OBStart: 03-13-2025 End: 94-76-4119KFZ Skeletal system Views for bone densityDEXA bone density Imaging Routine Well woman exam with routine gynecological exam Postmenopausal state Expected: 03/13/2025 (Approximate), Expires: 03/13/2026[facility] Comment on above:Expected: 03/13/2025 (Approximate), Expires: 03/13/2026Start: 03-13-2025 End: 98-33-5747DA Breast - bilateral ScreeningBilateral screening mammogram Imaging Routine Well woman exam with routine gynecological exam Encounter for screening mammogram for malignant neoplasm of breast Expected: 03/13/2025, Expires: 05/13/2026[facility] Work Phone: Comment on above:Expected: 03/13/2025, Expires: 05/13/2026Start: 02-28-2025 End: 55-16-2665Vvlmubn encounter nlufabrdm03/04/2025 3:15 PM EDT Office Visit [facility] [address] [facility] [address] [place] [address] Alissa Farooq DPM [address] [facility] [address] [place] [address] ArrivedNOMS [facility] PodiatryComment on above:ArrivedStart: 02-21-2025 End: 52-39-8263Yaaaihta Qvlyset4702/21/2025 3:00 PM EDT Clinical Support [facility] [address] [place] [address] GFLY [facility] Start: 03-27-2024 End: 56-28-0215Ameqygtp Sbeqssr0403/27/2024 3:00 PM EDT Clinical Support [facility] [address] [place] [address] DNRT [facility]CP OB Start: 03-07-2024 End: 97-07-5344Ltnkxde encounter procedureNOMS BCP OBComment on above:Arrived Start: 03-07-2024 End: 74-14-1937JJJ Skeletal system Views for bone densityDEXA bone density Imaging Routine Postmenopausal state Expected: 03/07/2024 (Approximate), Expires:03/07/2025NOMS HealthcareComment on above:Expected: 03/07/2024 (Approximate), Expires: 03/07/2025Start: 03-07-2024 End: 42-86-7422GS Breast - bilateral ScreeningBilateral screening mammogram Imaging Routine Breast cancer screening by mammogram Expected: 03/07/2024, Expires: 05/07/2025[facility] Work Phone: comment on above:Expected: 03/07/2024, Expires: 05/07/2025Start: 09-41-8969Fhohc X-ray of left elbowXR elbow LT min 3V*[facility] Campustart: 24-10-0388GL Elbow - left GE 3 ViewsSumma Health Barberton Campustart: 10-25-2023 End: 66-53-8425Inegtevx Jaoylzz0010/25/2023 3:00 PM EDT Clinical Support [facility] [address] [place] [address] [place] [address] [facility] THIN PREP TIS PAP AND HR HPV DNATHIN PREP TIS PAP AND HR HPV DNA Pathology and Cytology Routine Encounter for management and injection of depo-Provera Ordered: 03/07/2024[facility] HealthcareComment on above:Ordered: 03/07/2024THIN PREP TIS PAP AND HR HPV DNATHIN PREP TIS PAP AND HR HPV DNA Pathology and Cytology Routine Well woman exam with routine gynecological exam Ordered: 03/13/2025[facility] HealthcareComment on above:Ordered: 03/13/2025 Payers DatePayer CategoryPayerPolicy [id number]-ham [id number]'s [id number] Cross Blue Shield1.2.840.101965.1.13.693.2.7.9.702499.269980.79913-77-1296 Unknown1.2.840.779178.1.13.693.2.7.3.117055.3[id number] [id number] 2.16840.1.151065.3.579.2.63792-88-0813Zjcqvvn44055503 2.840.1.706894.3.579.2.35344-45-8475Geewkjo1843592 2.840.1.565605.3.579.2.67860-71-2594Ghaoobd8332860 2.0.1.666389.3.579.2.06993-74-5014Ljnvdln4709468 2.840.1.699155.3.579.2.01364-37-4454Gkqzvjp5972791 2.0.1.339093.3.579.2.61415-93-9255Dmjoayd47680588 2.0.1.919068.3.579.2.110698-22-8153Uibirxr58684741 2.0.1.244843.3.579.2.298414-91-8892Nbrbtac07890315 2.0.1.869825.3.579.2.425094-13-3950Possxiz2373832 2.0.1.168608.3.579.2.605323-08-6376Ktaioqb8734742 2.0.1.619557.3.579.2.218363-46-7227Gqbscbw9196850 2.0.1.266467.3.579.2.615246-29-9781Hvriyfr0340604 2.840.1.999634.3.579.2.161161-29-0041Skozuux56315691 2.840.1.994447.3.579.2.24750-84-7090Hdkjsvj58305262 2.0.1.964639.3.579.2.51022-29-4725Cqrldny74488777 2.840.1.796012.3.579.2.61492-55-9992Tpqqqnm37834786 2.0.1.867714.3.579.2.08097-02-9413Rzfhrdg60003726 2..1.968426.3.579.2.79678-41-1863Dnauhso56385817 2..1.112759.3.579.2.97470-13-3236Wochjmp55675515 2..1.050545.3.579.2.06436-63-5094Zosgxcc61389241 2..1.896539.3.579.2.11155-90-2296Wirnjuw68515018 2..1.143054.3.579.2.67475-30-8105Pyozlmv10162518 2..1.576665.3.579.2.65924-06-0846Yfntbpc34090912 2..1.538310.3.579.2.25228-62-7871Qhwznpu77903644 2..1.674591.3.579.2.58778-70-6391Jakk Cross Blue KsvmkqB5R582C88974 2..3.451399.84562552-09-4085IeqrntmTEG898280354758618AdueowoCVM36399738171-62-6909VmhzxkhDQ3331444 Fywjboo82186496 2.840.1.312504.3.579.2.510Iftijgc86242212 2.0.1.978837.3.579.2.368Feswpno54121228 2.16.840.1.516294.3.579.2.531 Omxcymk83972795 2.16.840.1.785821.3.579.2.531Worker's CompensationIndustrial Self Ins [id number] Social History DateTypeDetailFacilityUnknown if ever smokedSheboygan [facility] Other Start: 07-25-2023 End: 71-65-1760Ejq Assigned At [facility] Other Start: 10-58-1936Kcbldkn smoking status NHISCurrent some day smokerSumma Health Barberton Campustart: 84-98-1982Hxm [facility]igned At [facility]tart: 12-06-2022 End: 88-91-4876Odgsghj smoking status NHISEx-smokerNOMS Healthcare End: 34-65-0778Szbrsrb of tobacco useCurrent smokerNOMS Healthcare End: 05-83-2841Haabljy of tobacco useCigarette SmokerNOMS HealthcareStart: 01-06-2023 End: 62-99-4102Onovppy use and exposureSmokeless tobacco non-userNOMS Healthcare Start: 08-02-2023 End: 73-23-5062Zfmmucs intakeCurrent drinker of alcohol (finding)[facility] Start: 07-25-2023 End: 26-24-4845Sxywbtb of Social functionNOMS HealthcareStart: 56-48-2231Jivoxbd Comment5-10 years since last smokedNOMS HealthcareStart: 64-12-8954Fuvygzt Comment3-4 drinks less than monthly in the past year, Caffeine intake: 1-2 cups per day coffeeNOMS HealthcareStart: 55-87-4321Xropgq identityIdentifies as female gender (finding)[facility] HealthcareSexFemale (finding)[facility] Clinical Notes 09-25-2021 to 03-18-2025 Note Date & BouaUvbbHiznnowj22-06-1303 NoteRadiology Sclerotherapy Sclerotherapy is a procedure that is done to make varicose veins and spider veins look better and it helps to relieve aching, swelling, cramping, and pain in the legs. Varicose veins are veins that have become enlarged, bulging, and twisted due to a damaged valve that causes blood to collect (pool)in the veins. Spider veins are small varicose [...] You may need more than one treatment toclose a vein all the way. The number of veins treated in one session depends on the size and location of the veins, and on your overall medical condition. Tell a health care provider about: ? Any allergies you have. ? All medicines you are taking, including vitamins, herbs, eye drops, creams, and arww-puq-iuesxtd medicines. ? Any bleeding problems you have. [...] care provider tells you to. ? Taking trib-kpg-lksedxp medicines, vitamins, herbs, and supplements. Tests ? [...] taken to help prevent infection. These steps mayinclude: ? Removing hair at the injection site. [...] right away. Call 911. (more content not included)...[facility] HospitalRjbaluhl77-90-1660 History of Present illness Narrative* Nikole Belcher, BOW REPAIRER CUSTOM - 03/13/2025 3:00 PM EDT Reason for Appointment: Patient ID: Julia Quispe [...] and depressive disorder SVT (supraventricular tachycardia) (HCC) Social History Tobacco Use Smoking status: Former [...] nursing note reviewed. Exam conducted with a assistant clinical nurse manager present. Vitals: Estimated body mass index is [...] them. Patient can also view results via [employer]. I reinforced importance of condom use for [...] Luis Angel Esquivel DO documented in this encounterRanken Jordan Pediatric Specialty HospitalOzuzptesji87-91-1303 History of Present illness Narrative* Alissa Farooq DPM - 02/28/2025 3:15 PM EDT [...] the future. RTC: prn. documented in this encounterRanken Jordan Pediatric Specialty HospitalLysqivzfad89-12-3578 NoteRadiology Sclerotherapy Sclerotherapy is a procedure that is done to make varicose veins and spider veins look better and it helps to relieve aching, swelling, cramping, and pain in the legs. Varicose veins are veins that have become enlarged, bulging, and twisted due to a damaged valve that causes blood to collect (pool)in the veins. Spider veins are small varicose [...] You may need more than one treatment toclose a vein all the way. The number of veins treated in one session depends on the size and location of the veins, and on your overall medical condition. Tell a health care provider about: ? Any allergies you have. ? All medicines you are taking, including vitamins, herbs, eye drops, creams, and vqaa-tvt-ziplffl medicines. ? Any bleeding problems you have. [...] care provider tells you to. ? Taking khuc-vsq-hqoxwud medicines, vitamins, herbs, and supplements. Tests ? [...] taken to help prevent infection. These steps mayinclude: ? Removing hair at the injection site. [...] right away. Call 911. (more content not included)...[facility] HospitalHibsejmz45-53-9612 NotePROCEDURE: US Injection Varicose Vein Multiple HISTORY: Varicose veins of [...] Varithenaregistered. 2. Intraoperative ultrasound guidance Physician: Janiya Hayes M.D. Anesthesia: None INDICATION : 54 year [...] Winston Liz RN Final Dictated by: Janiya Hayes MD Dictated DT/TM: 02/20/25 6:00 Signed (Electronic Signature): Janiya Hayes MD 02/20/25 6:01 am Technologist: [facility]08-13-2025 NoteRadiology Sclerotherapy Sclerotherapy is a procedure that is done to make varicose veins and spider veins look better and it helps to relieve aching, swelling, cramping, and pain in the legs. Varicose veins are veins that have become enlarged, bulging, and twisted due to a damaged valve that causes blood to collect (pool)in the veins. Spider veins are small varicose [...] You may need more than one treatment toclose a vein all the way. The number of veins treated in one session depends on the size and location of the veins, and on your overall medical condition. Tell a health care provider about: ? Any allergies you have. ? All medicines you are taking, including vitamins, herbs, eye drops, creams, and vyak-okp-ifgbllz medicines. ? Any bleeding problems you have. [...] care provider tells you to. ? Taking pvmg-ogl-gpvonul medicines, vitamins, herbs, and supplements. Tests ? [...] taken to help prevent infection. These steps mayinclude: ? Removing hair at the injection site. [...] right away. Call 911. (more content not included)...[facility] HospitalFyjxhqtc36-75-2516 NotePROCEDURE: US Injection Varicose Vein Multiple COMPARISON: None. HISTORY: Varicose [...] Seda Urias MD 01/30/25 4:13 pm Technologist: [facility]07-28-2025 NoteRadiology Sclerotherapy Sclerotherapy is a procedure that is done to make varicose veins and spider veins look better and it helps to relieve aching, swelling, cramping, and pain in the legs. Varicose veins are veins that have become enlarged, bulging, and twisted due to a damaged valve that causes blood to collect (pool)in the veins. Spider veins are small varicose [...] You may need more than one treatment toclose a vein all the way. The number of veins treated in one session depends on the size and location of the veins, and on your overall medical condition. Tell a health care provider about: ? Any allergies you have. ? All medicines you are taking, including vitamins, herbs, eye drops, creams, and xolm-iag-tcdagds medicines. ? Any bleeding problems you have. [...] care provider tells you to. ? Taking krnv-omz-pbllfey medicines, vitamins, herbs, and supplements. Tests ? [...] taken to help prevent infection. These steps mayinclude: ? Removing hair at the injection site. [...] right away. Call 911. (more content not included)...[facility] [id number] NoteProcedures Endovenous Ablation, Care After The following information [...] and water are not available, use hand per diem registered nurse. ? Change your dressing as told by [...] take short walks every 1?2 hours. This isimportant to improve blood flow. Ask for help [...] are sitting or lying down. ? Take ykbr-cha-otwjzlh and prescription medicines only as told by [...] provider. Document Revised: 11/19/2021 Document Reviewed: 11/19/2021 [employer] Patient Education ? 2024 [employer].[facility] [id number] Note Procedures Endovenous Ablation Endovenous ablation is [...] including vitamins, herbs, eye drops, creams, and uwak-xnn-vxpxtbu medicines. ? Any problems you or family [...] tells you to take them. ? Taking vlju-iol-eubqesh medicines, vitamins, herbs, and supplements. General instructions [...] stockings. These stockings help (more content not included)...[facility] [id number] NoteProcedures Endovenous Ablation, Care After The following information [...] and water are not available, use hand per diem registered nurse. ? Change your dressing as told by [...] take short walks every 1?2 hours. This isimportant to improve blood flow. Ask for help [...] are sitting or lying down. ? Take cppo-vqf-smbxtqy and prescription medicines only as told by [...] provider. Document Revised: 11/19/2021 Document Reviewed: 11/19/2021 [employer] Patient Education ? 2024 [employer].[facility] [id number] Note Procedures Endovenous Ablation Endovenous ablation is [...] including vitamins, herbs, eye drops, creams, and bkjm-hyp-ufdkjgm medicines. ? Any problems you or family [...] tells you to take them. ? Taking tzbk-xpl-juqxfdh medicines, vitamins, herbs, and supplements. General instructions [...] images of your leg veins and to meuhl the skin over the target treatment vein. [...] stockings. These stockings help (more content not included)...[facility] [id number] NoteProcedures Endovenous Ablation, Care After The following information [...] and water are not available, use hand per diem registered nurse. ? Change your dressing as told by [...] take short walks every 1?2 hours. This isimportant to improve blood flow. Ask for help [...] are sitting or lying down. ? Take gxzd-fmk-sfzirpw and prescription medicines only as told by [...] provider. Document Revised: 11/19/2021 Document Reviewed: 11/19/2021 [employer] Patient Education ? 2023 [facility]isticsSt[facility] History of Present illness Narrative* Sharon Oliver MA - 11/22/2024 3:00 PM EDT Reason for Appointment: Patient ID: Julia Quispe [...] Staff: Sharon Oliver MA documented in this encounterRanken Jordan Pediatric Specialty [id number] History of Present illness Narrative* Nikole Belcher, BOW REPAIRER CUSTOM - 03/07/2024 4:00 PM EDT Reason for Appointment: Patient ID: Julia Quispe is a 53 y.o. female who presents for [facility] Visit Patient presents today for Annual [...] Mardelle Hypertension Mother Mardelle Heart disease Mother Sophiedelle Diabetes Maternal Grandmother Sepideh aguilera SURGICAL HISTORY [...] nursing note reviewed. Exam conducted with a assistant clinical nurse manager present. Vitals: Estimated body mass index is [...] Luis Angel Esquivel DO documented in this encounterRanken Jordan Pediatric Specialty [id number] History of Present illness Narrative* Karolyn Santos LPN - 08/02/2023 3:50 PM EST Reason for Appointment: Patient ID: Julia Quispe [...] Staff: Karolyn Santos LPN documented in this encounterRanken Jordan Pediatric Specialty [id number] Evaluation note* Encounter Date Diagnosis Assessment Notes Treatment Notes Treatment Clinical Notes October, Right calf pain (ICD-10 - M79.66 1) eval w d-dimer as she presently doesn't have symptoms October,Other fatigue (ICD-10 - R53.83)discussed differential - will get labs right now. Discussed sleep quality and regular routine. October,Trochanteric bursitis, right hip (ICD-10 - M70.61)Gave HO of specific stretches. [facility] Other 05-15-2022 NoteMR#: [id number] I [facility] Pt. Name: Julia Quispe Admitted: 11/04/2021 [...] instructions included to follow up with Dr. Barbosa in 1 week. She was discharged with [...] to make a followup appoint with Dr. Barbosa. The patient understood all discharge instructions and [...] Tolentino CNP Date Trans: 11/07/2021 11:18 P/adrianna [id number] [facility]05-05-2022 NoteMR#: [id number] I [facility] Pt. Name: Julia Quispe Admitted: 10/23/2021 Discharged: 10/28/2021 Date of : 1970 Physician: Alejandrina Garza MD DISCHARGE SUMMARY PRINCIPAL DIAGNOSES: Abdominal abscess status post appendectomy on 10/14, and on 10/18, evacuation of hematoma done at outside hospital at [facility]. PROCEDURE PERFORMED: During this hospital stay was IR drain placed on 10/24 into the abdominal abscess. HOSPITAL COURSE: The patient is a 51-year-old female presented to the hospital for complaints of right lower quadrant pain. She recently underwent appendectomy on 10/14/2021 at [facility] and she was readmitted on Tuesday, 10/18 for right lower quadrant pain and she had a diagnostic laparoscopy for evacuation of hematoma on 10/19/2021 at [place]. She came back in for continued pain. [...] will request to follow up with Dr. Barbosa. She had a followup scheduled here on [...] Tolentino CNP Date Trans: 10/29/2021 05:27 A/adrianna [id number] cc: Jonatan Beltran M.D. [address] [place] [id number] History general Narrative - Reported* Type Description Date Medical History SVT Medical HistoryFactor 5Surgical HistoryAppendectomy09/2021 [facility] [employer] Other Evaluation noteNort [facility] Other Evaluation noteNo InformationNortEncompass Health Rehabilitation Hospital [facility] [employer] Other Evaluation noteNo assessment information available [facility] Work Phone: Evaluation note* Diagnosis Encounter for management and injection of depo-Provera documented in this encounter [facility]* Diagnosis Onset Date Resolution Status Lateral epicondylitis, left elbow acute [facility] Work Phone: Evaluation note* Diagnosis Onset Date Resolution Status Lateral epicondylitis, left elbow acuteLateral epicondylitis, left elbowacute [facility] Work Phone: Evaluation note* Diagnosis Encounter for management and injection of depo-Provera Breast cancer screening by mammogram Postmenopausal state Asymptomatic postmenopausal status (age-related) (natural) documented in this encounter [facility] HealthcareEvaluation note* Diagnosis Encounter for surveillance of injectable contraceptive documented in this encounter [facility] HealthcareEvaluation note* Diagnosis Ingrown toenail- Primary Ingrowing nail Pain of toe of right foot documented in this encounter [facility]* Diagnosis Well woman exam with routine gynecological exam Routine gynecological examination Encounter for screening mammogram for malignant neoplasm of breast Postmenopausal state Asymptomatic postmenopausal status (age-related) (natural) documented in this encounter [facility] HealthcareHistory general Narrative - ReportedNortEncompass Health Rehabilitation Hospital [facility] [employer] Other History general Narrative - Reported* Type Description Date Medical History SVT Medical HistoryFactor 5Medical HistoryAsthmaMedical HistoryPostmenopausalMedical HistorySituational mixed anxiety and depressive disorderMedical HistoryAcute deep vein thrombosis (DVT) of distal end of left lower extremitySurgical History Appendectomy2Surgical [id number] HistoryWRIST Hospitalization HistorySEE SURGICAL HX [facility] [employer] Other Reason for referral (narrative)No reason for referral information availableDoctors Hospital Work Phone: Summary Purpose Family History No Family History [...] M77.12 M77.12 M77.12 Chief Complaint M77.[address] [facility] DOI 05/12/23 LT ELBOW M77.12 - Lateral epicondylitis, left elbowReason for VisitLateral epicondylitis, left elbow Chief Complaint M77.12 [facility] DOI 05/12/23 LT ELBOW M77.12 - Lateral epicondylitis, left elbow 8 WEEKSReason for VisitLateral epicondylitis, left elbow Lateral epicondylitis, left elbow Chief Complaint Admit Date Blood in Bowels March 22, 2025 11:33am Additional Source Comments INFORMATION SOURCE (unrecogn ized section and content) DATE CREATED AUTHOR 01/15/2022 [facility] DATE CREATED AUTHOR AUTHOR'S ORGANIZ ATION 03/06/2022 [facility] DATE CREATED AUTHOR AUTHOR'S ORGANIZ ATION 11/04/2022 [facility] DATE CREATED AUTHOR AUTHOR'S ORGANIZ ATION 03/03/2024 [facility] DATE CREATED AUTHOR AUTHOR'S ORGANIZ ATION 03/15/2025 [facility] EPIC DATE CREATED AUTHOR AUTHOR'S ORGANIZ ATION 04/09/2025 [facility] REASON FOR VISIT (unrecogniz ed section and content) ReasonCommentsContraceptionDepo injectionReasonCommentsWell Women VisitReason CommentsContraceptionReasonCommentsGynecologic Exam Care Teams (unrecognized sec tion and content) Team Status: Active Member Role Status Dates Jacques Zavala MD Primary Care Provider Active Team Status: Active Member Role Status Dates Jacques Zavala MD Primary Care Provider Active Start: March 13, 2025 Alex Gonzalezending ProviderActiveStart: March 13, 2025 Team Status: Inactive Member Role Status Dates Jacques Zavala MD Primary Care Provider Active Start: March 22, 2025 End: March 22, 2025Jayla Raymundo ProviderActiveStart: March 22, 2025 End: March 22, 2025 Team Status: Inactive Member Role Status Dates Jacques Zavala MD Primary Care Provider Active Adriane D Rausch , APRNAttending ProviderActiveTeam MemberRelationshipSpecialty Start DateEnd Date Jacques Zavala MD [address] [place] [phone] [facility]/06/23 Team Status: Inactive Member Role Status Dates Jacques Zavala MD Primary Care Provider Active Start: May 13, 2023 End: May 13souleymane Rausch , APRNAttending ProviderActiveStart: May 13, 2023 End: May 13, 2023 Team Status: Inactive Member Role Status Dates Jacques Zavala MD Primary Care Provider Active Start: May 24, 2023 End: May 24amelkaylee Rausch , APRNAttending ProviderActiveStart: May 24, 2023 End: May 24, 2023 Team Status: Inactive Member Role Status Dates Jacques Zavala MD Primary Care Provider Active Start: June 07, 2023 End: June 07amelkayele Rausch , APRNAttending ProviderActiveStart: June 07, 2023 End: June 07, 2023 Team Status: Inactive Member Role Status Dates Jacques Zavala MD Primary Care Provider Active Start: June 24, 2023 End: June 24amelkaylee Rausch , APRNAttending ProviderActiveStart: June 24, 2023 End: June 24, 2023 Team Status: Inactive Member Role Status Dates Jacques Zavala MD Primary Care Provider Active Start: July 29, 2023 End: July 29amelkaylee Rausch , APRNAttending ProviderActiveStart: July 29, 2023 End: July 29, 2023 Team Status: Inactive Member Role Status Dates Jacques Zavala MD Primary Care Provider Active Start: September 16, 2023 End: September 154Psouleymane Rausch , APRNAttending ProviderActiveStart: September 16, 2023 End: September 16, 2023 Team Status: Inactive Member Role Status Dates Jacques Zavala MD Primary Care Provider Active Start: September 29, 2023 End: September 28souleymane Rausch , APRNAttenvalencia ProviderActiveStart: September 29, 2023 End: September 29, 2023 Team Status: Inactive Member Role Status Dates Jacques Zavala MD Primary Care Provider Active Start: December 06, 2023 End: December 05souleymane Rausch APRNAttenvalnecia ProviderActiveStart: December 06, 2023 End: December 06, 2023 Team Status: Inactive Member Role Status Dates Jacques Zavala MD Primary Care Provider Active Start: February 14, 2024 End: February 13souleymane Rausch APRNAttenvalencia ProviderActiveStart: February 14, 2024 End: February 14, 2024 Team Status: Inactive Member Role Status Dates Jacques Zavala MD Primary Care Provider Active Start: March 01, 2024 End: March 01, 2024Pasha Kinney DOAttending ProviderActiveStart: March 01, 2024 End: March 01, 2024 Team Status: Active Member Role Status Dates Jacques Zavala MD Primary Care Provider Active Start: March 01, 2024 Pasha Kinney DOAttending ProviderActiveStart: March 01, 2024 Team Status: Active Member Role Status Dates Jacques Zavala MD Primary Care Provider Active Start: March 07, 2024 Luis Angel Esquivel DOAttending ProviderActiveStart: March 07, 2024 Team Status: Inactive Member Role Status Dates Jacques Zavala MD Primary Care Provider Active Start: April 26, 2024 End: April 26, 2024Pasha Kinney DOAttending ProviderActiveStart: April 26, 2024 End: April 26, 2024Team MemberRelationshipSpecialtyStart DateEnd Date Jacques Zavala MD [address] [place] [phone] [facility] Medicine01/06/23Team MemberRelationshipSpecialtyStart DateEnd Date Jacques Zavala MD [address] [place] [phone] [facility]CP - GeneralFamiJen[facility]01/06/23Team MemberRelationshipSpecialtyStart DateEnd Date Jacques Zavala MD [address] [facility] [place] [phone] PCP - [facility]01/06/23Te MemberRelationshipSpecialtyStart DateEnd Date Jacques Zavala MD [address] [facility] [place] [phone] PCP - [facility]01/06/23Te MemberRelationshipSpecialtyStart DateEnd Date Jacques Zavala MD [address] [facility] [place] [phone] [facility] - [facility]01/06/23Te MemberRelationshipSpecialtyStart DateEnd Date Jacques Zavala MD [address] [facility] [place] [address] [facility] - [facility]01/06/23Te MemberRelationshipSpecialtyStart DateEnd Date Jacques Zavala MD [address] [facility] [place] [phone] PCP - [facility]01/06/23 Goals (unrecognized section and content) Goals may [...] BE BASED ON THE PRIMARY CLINICAL RECORDS. [facility] provides no warranty or guarantee of the accuracy or completeness of information in this document.
== END 2025-04-18 14:43 | disposition home or self-care (01) ==
LOC: MAMMO 14:42
PROVIDERS: PCP Family Medicine; Visit Provider Obstetrics & Gynecology
DX: Z12.31 Encounter for screening mammogram for malignant neoplasm of breast (principal)
CPT/HCPCS: 77063; 77067

== ENCOUNTER 2025-05-16 15:27 | Outpatient (OUT) | payer BC, SELFPAY ==
--- OUTSIDE RECORDS SUMMARY | 2025-05-09 23:59 | XMS_ITS | Continuity of Care Document ---
Author Organization [facility] Address Unknown Care Team Providers Care Insurance Advisor Name Role Phone Jesus Matias Primary Care Physician [phone] Encounter [facility] [id number] Date(s): 05/09/25 - 05/09/[address] [address] Encounter Diagnosis Varicose veins of bilateral lower extremities with pain(Discharge Diagnosis) - 04/29/25 Discharge Disposition: Home Attending Physician: Lacho Urias MD Admitting Physician: Lacho Urias MD Encounter Type: OP Allergies, Adverse Reactions, Alerts SubstanceCriticalitySeverityReactionReaction SeverityStatuscodeineHigh criticalityModerateHivesActiveVersedHigh criticalityModerateActive Treatment Plan Extracted from:Title:VeinAuthor:Winston Liz RNDate:05/09/25 Varicose veins of bilateral lower extremities with pain (I83.813) Future Appointments Future Scheduled Tests Radiology* US Injection Spider Veins 06/04/25 Medications Xarelto 15 mg oral tablet 1 tab(s) ( 15 mg ), Oral, qPM, # 30 tab(s), 0 Refill(s) Start Date: 02/26/25 Status: Ordered Medication Dispense Status: Completed Quantity: 30.0 Unit: tab(s) Total Allowed Fills: 1 Fills Dispensed: 0 Problem List ConditionConfirmationCourseEffective DatesStatusHealth StatusInformant Supraventricular tachycardiaConfirmedActive Procedures ProcedureDateRelated DiagnosisBody WkepMkmrfkAbegsnluitmpm64/12/25Completed Vqyhjpardarhq605/29/25CompletedChemical aoyeelvz79/5/25CompletedEndovenous laser ablation of varicose veinCompletedEndovenous laser ablation of varicose vein of lower limb01/02/25CompletedEndovenous laser ablation of varicose vein 12/24/24CompletedAppendectomyCompletedCesarean deliveryCompleted 1Sclerotherapy right leg 2microfoam chemical ablation right leg 3EVLT of left AASV Results Radiology Reports * Exam Date TimeProcedurePerforming LeagtqzvXqbqth53/13/25 3:53 PMUS Injection Spider VeinsAuth (Verified) Notes: (US Injection Spider Veins) Reason For Exam: I83.813 REPORT EXAMINATION: US Injection Spider Veins HISTORY: I83.813 COMPARISON: No relevant comparison available. TECHNIQUE: The risks and benefits of the procedure were explained at length to the patient and informed written consent was obtained. Winston Liz was present and assisted. The procedure was performed under sterile technique. The patient's leg was wrapped with Coban and postprocedural verbal and written instructions provided. SCLEROSANT: 4 mL, 0.5% polidocanol (5mg/ml non-compounded) VEIN(S) INJECTED: 23 veins in the left leg VISUALIZATION: Ultrasound was not used to visualize the sclerosant ANESTHESIA: Supercooled air COMPLICATIONS: None IMPRESSION: Technically successful sclerotherapy as described Final Dictated by: Lacho Urias MD Dictated DT/TM: 05/09/25 4:06 Signed (Electronic Signature): Lacho Urias MD 05/09/25 4:06 pm Technologist: KYLAH Vital Signs Most recent to oldest [Reference Range]:1Peripheral Pulse Rate [60-100 bpm]82 bpm (05/09/25 3:25 PM)Respiratory Rate [14-20 br/min]16 br/min (05/09/25 3:25 PM)Blood Pressure [90-120/60-80 mmHg]116/74mmHg (05/09/25 3:25 PM)Mean Arterial Pressure, Cuff [65-100 mmHg]88 mmHg (05/09/25 3:25 PM)BP SiteRight arm (05/09/25 3:25 PM)SpO2 [92-100 %]98 % (05/09/25 3:25 PM) Social History Social History TypeResponseTobaccoNever tobacco user Tobacco Use:. SexSex RepresentationFemale (finding) Hospital Discharge Instructions Patient Education 05/07/2025 15:15:19 Sclerotherapy, Care After Sclerotherapy, Care After After sclerotherapy, it is common to have swelling, bruising, and soreness. You may also have: ??? Some changes to skin color. ??? Slight bleeding from where you got your shot (injection site). Follow these instructions at home: The instructions below may help you care for yourself at home. Your health care provider may give you more instructions. If you have questions, ask your health care provider. Injection site care ??? Follow instructions from your health care provider about how to take care of your injection site. Make sure you: ??? Wash your hands with soap and water for at least 20 seconds before and after you change your bandage. If you cannot use soap and water, use hand pewter caster. ??? Change your bandage. ??? Check the area around any injection sites (injection areas) every day for signs of infection. Check for: ??? More redness, swelling, or pain. ??? More fluid or blood. ??? Warmth. ??? Pus or a bad smell. Activity ??? Do light exercise every day, as told by your health care provider. Walking or riding a stationary bike may be good options for you. ??? Return to your normal activities when your health care provider says that it is safe. Ask what activities are safe for you. General instructions ??? Take uzbq-mjg-pjlxzlk and prescription medicines only as told by your health care provider. ??? Do not use lotions or creams on your legs unless your health care provider approves. ??? Do not smoke or use any products that contain nicotine or tobacco before the procedure. If you need help quitting, ask your health care provider. ??? Wear compression stockings as told by your health care provider. These help to prevent blood clots and reduce swelling in your legs. ??? Wear loose-fitting clothes on the treatment area. ??? Avoid being in direct sunlight. This includes avoiding: ??? Sun tanning. ??? Using tanning beds. ??? Do not use hot, wet cloths or any form of heat near the injection site. Contact a health care provider if: ??? You have more redness, swelling, or pain at any injection area. ??? You have more fluid or blood coming from any injection site. ??? Any injection area feels warm to the touch. ??? You have pus or a bad smell coming from any injection site. ??? You have a fever. Get help right away if: ??? You have leg pain that gets worse when you walk. ??? You have redness or swelling in your leg that is getting worse. ??? You have trouble breathing. ??? You have chest pain. Summary ??? Swelling, bruising, and soreness are common after this procedure. ??? Check all injection areas every day for signs of infection. ??? Wear compression stockings as told by your health care provider. These stockings help to prevent blood clots and reduce swelling in your legs. This information is not intended to replace advice given to you by your health care provider. Make sure you discuss any questions you have with your health care provider. Document Revised: 09/16/2022 Document Reviewed: 09/16/2022 nooked Patient Education ?? 2024 [employer]. Outpatient Note * Winston Liz RN: PERFORM, MODIFY Event Display: Office/Clinic Note Authored Date: [id number] LISA QUISPE :1970 Age:54 years Sex:FEMALE Primary Care Physician: Jesus Matias MD Chief Complaint Patient in this day for sclerotherapy left leg Physical Exam Vitals & Measurements HR:??82??(Peripheral)?? RR:??16?? BP:??116/74?? SpO2:??98%?? Procedure Risks and benefits of the procedure were discussed at length and informed written consent was obtained.?? Timeout procedure was performed and the correct patient and procedure were confirmed.?? Staffpresent during timeout:?? Winston Liz RN and ??Adonay.?? Patient prepped and procedure performed in usual sterile fashion.? Injections performed by Winston Liz RN and ??Adonay Sclerosing Agent:?? 4cc 0.5% Polidocanol Site Injected:?Leftleg Number of injections:?? 23 ?? The patient tolerated the procedure well, without complication.?? Hemostasis was obtained and thigh high compression stocking applied.?? Instructed patient to wear stocking for at least 96 hours only removing it to shower.?? Patient will wear stocking for a combined total of 2 weeks.?? The patient verbalizes understanding and states they will comply.?? Patient given post-procedure instructions.?? Patient d/c in good condition.?? Assessment/Plan Varicose veins of bilateral lower extremities with pain (I83.813) Patient Education Sclerotherapy, Care After Problem List/Past Medical History Ongoing Supraventricular tachycardia Procedure/Surgical History ???Sclerotherapy Service Date: 05/09/2025???Sclerotherapy Service Date: 04/25/2025???Chemical ablation Service Date: 01/30/2025???Endovenous laser ablation of varicose vein Service Date: 01/17/2025???Endovenous laser ablation of varicose vein of lower limb Service Date: 01/03/2025???Endovenouslaser ablation of varicose vein Service Date: 12/25/2024??? delivery???Appendectomy Medications Unchanged rivaroxaban (Xarelto 15 mg oral tablet)1 tab(s) Oral (given by mouth) once a day (in the evening). Allergies Versed (Moderate) codeine (Moderate)??Hives Social History Alcohol Alcohol Use:Current Electronic Cigarette/Vaping Electronic Cigarette Use:Use, within last 90 days Tobacco Smoking tobacco use:Never tobacco user Family History Coronary heart disease: Mother. Diabetes mellitus type II: Grandparent. Heart disease: Mother. High blood pressure: Mother. Varicose veins: Grandparent. [Electronically Signed on: 05/09/2025 16:06 EST] Winston Liz RN [Electronically Signed on: 05/09/2025 16:58 EST] Lacho Urias MD [Verified on: 05/09/2025 16:58 EST] Lacho Urias MD Patient Care team information Care Team Personnel Name: Jesus Matias MD Position: [facility] RadNet: Radiologist Member Role: Primary Care Physician Address: [address] [place] [address] [address] [place], [place] [address] Telecom: Care Team Related Persons Name: BRITTANEY ASHWIN Insurance Providers Guarantor name: LISA ARREOLA BRITTANEY Health Plan Information #: 1 Payer: ANTHEM Payer Identifier: NA Member Number: [id number] Group Number: NA Subscriber Identifier: NA Relationship to Subscriber: self Coverage Type: BLUE CROSS/BLUE SHIELD Coverage Verification Date: Telecom: [facility] Address: [address] [place] [address] Health Plan Information #: 2 Payer: ANTHEM Payer Identifier: NA Member Number: [id number] Group Number: NA Subscriber Identifier: [id number] Relationship to Subscriber: self Coverage Type: BLUE CROSS/BLUE SHIELD Coverage Verification Date: 25 Telecom: [phone] Address: [facility] [id number] [place] [address] Health Plan Information #: 3 Payer: ANTHEM Payer Identifier: NA Member Number: [id number] Group Number: NA Subscriber Identifier: [id number] Relationship to Subscriber: spouse Coverage Type: BLUE CROSS/BLUE SHIELD Coverage Verification Date: 25 Telecom: [phone] Address: [address] [place] [address]
--- OUTSIDE RECORDS SUMMARY | 2025-05-16 15:34 | XMS_ITS | Clinical Summary ---
Author Organization [facility] Address [address] [place] [address] Care Team Providers Care Booster Assembler Name Role Phone Liliane Penn MD Primary Care Provider [phone] Kiran Freitas MD Unavailable Unavailabl e Josias Ruiz MD Unavailable Allergies Active AllergyReactionsCriticalityNoted WskuAjdkwljwAbntwvd77/01/2022Midazolam 02/25/2022 Medications MedicationSigDispense QuantityRefillsLast FilledStart DateEnd DateStatus medroxyPROGESTERone (Depo-Provera) 150 mg/mL injection Inject into the shoulder, thigh, or buttocks every 3 (three) months.Active Active Problems ProblemNoted DateDiagnosed DateDeep venous thrombosis of lower extremity 10/09/2019Supraventricular amjxyklhdes08/19/2019 Family History Medical HistoryRelationNameCommentsAtrial fibrillationFatherAtrial fibrillation MotherRelationNameStatusCommentsFatherMother Social History Tobacco UseTypesPacks/DayYears UsedDateSmoking Tobacco: FormerCigarettes 10/11/1994 - 10/11/2009Smokeless Tobacco: Never Tobacco Cessation:Counseling Given: Not Answered Alcohol UseStandard Drinks/WeekCommentsYes0 (1 standard drink = 0.6 oz pure alcohol)occasionalUT Safety & EnvironmentAnswerDate RecordedFear of Current or Ex-PartnerNot on file2023Emotionally AbusedNot on file2023hysically AbusedNot on file2023Sexually AbusedNot on file2023hysically or Sexually AbusedNot on file2023CommentsUnknownSex and Gender InformationValueDate RecordedSex Assigned at BirthNot on fileLegal SexFemale 12/24/2021 12:13 AM EDTGender IdentityNot on fileSexual OrientationNot on file Last Filed Vital Signs Vital SignReadingTime TakenCommentsBlood Syxtuqqx281/7609 2:57 PM EDT Qodqq284902/25/2022 2:57 PM QRNNkbcwtwqldj38.2 ??C (98.9 ??F)02/25/2022 2:56 PM EDTRespiratory Rate--Oxygen Vosipvxxji27%07/07/2021 3:44 PM ESTInhaled Oxygen Concentration--Ezotkq06.4 kg (131 lb)02/25/2022 2:54 PM FDVYjdrjy704 cm (5' 3 ) 02/25/2022 2:53 PM EDTBody Mass Index23.21002/25/2022 2:53 PM EDT Plan of Treatment Health MaintenanceDue DateLast DoneCommentsCT Hmifxfqdeuub73/22/1972Colonoscopy 1971Colorectal Cancer Xspdpljov49/22/1972FIT-DNA1971FIT1971 FOBT1970 8603Htgjrudbcsdtt93/22/1972Depression Njncaknug77/22/1984Hepatitis B Vaccines (1 of 3 - 19+ 3-dose series)1990Pap Smear1992Adult Tetanus 1993Cervical Cancer Msxzpgtsl86/22/2002HPV/Rtjzke3808/18/2001Mammogram 2011Zoster Vaccines (1 of 2)2021Influenza Vaccine (#1)2025HIB VaccinesAged OutNo longer eligible based on patient's age to complete this topic HPV VaccinesAged OutNo longer eligible based on patient's age to complete this topicIPV VaccinesAged OutNo longer eligible based on patient's age to complete this topicMeningococcal B VaccineAged OutNo longer eligible based on patient's age to complete this topicMeningococcal VaccineAged OutNo longer eligible based on patient's age to complete this topicPneumococcal Vaccine: Pediatrics (0 to 5 Years) and At-Risk Patients (6 to 64 Years)Aged OutNo longer eligible based on patient's age to complete this topicRotavirus VaccinesAged OutNo longer eligible based on patient's age to complete this topic Insurance Care Teams Team MemberRelationshipSpecialtyStart DateEnd Date Liliane Penn MD [address] [facility] PCP - General02/25/22 Kiran Freitas MD [address] [facility] [address] SurgeonGeneral Surgery02/25/22 Josias Ruiz MD [address] [facility] [address] [facility] [place] [address] Consulting PhysicianCardiology02/25/22
--- OUTSIDE RECORDS SUMMARY | 2025-05-16 15:36 | XMS_ITS | CCD ---
Author Organization [facility] CliniSyil Care Team Providers Care News Librarian Name Role Phone JACQUES ZAVALA Primary Care [...] Unavailable ALVIN ., DR SCHUMACHER Attending Unavailable [place], DR SEDA Donaldson Consulting Unavailable ZAVALA, DR [...] Provider Jacques Zavala MD Primary Care Provider MD Jacques Zavala Primary Care Provider MC Rausch Attending Provider MD Jacques Zavala Primary Care Provider MC Rausch Attending Provider MD Jacques Zavala Primary Care Provider MC Rausch Attending Provider MD Jacques Zavala Primary Care Provider MC Rausch Attending Provider DO Pasha Kinney Attending Provider MD Jacques Zavala Primary Care Provider MC Rausch Attending Provider Jacques Zavala MD Primary Care Provider ALISSA FAROOQ Attending Unavailable LUIS ANGEL ESQUIVEL Attending Unavailable Jacques Zavala MD Primary Care Provider Luis Angel Esquivel DO Attending Provider Jacques Zavala MD Attending Provider Jacques Zavala MD Primary Care Provider [phone] Jacques Zavala MD Primary Care Provider Luis Angel Esquivle DO Attending Provider [phone] Jacques Zavala MD Attending Provider [phone] Cuauhtemoc Muro MD Attending Provider Cuauhtemoc Muro MD Other Provider Cuauhtemoc Muro Attending Unavailable Cuauhtemoc Muro Admitting Unavailable Jacques Zavala Primary Care Unavailable Janiya Hayes Primary Care Unavailable Polly, Janiya Palma Admitting Unavailable Janiya Hayes Attending Unavailable Ramboeber, Janiya RLevar Primary Care Unavailable ZiebJaniya croft RLevar Attending Unavailable Ramboeblang, Janiya RLevar Admitting Unavailable Zieblang, Janiya RLevar Primary Care Unavailable Zieblang, Janiya RLevar Attending Unavailable Ramboeblang, Janiya RLevar Admitting Unavailable Zieber, Janiya RLevar Primary Care Unavailable Seda Urias V. Attending Unavailable Seda Urias V. Admitting Unavailable Seda Urias V. Attending Unavailable Seda Urias V. Admitting Unavailable Zieber, Janiya RLevar Primary Care Unavailable Zieber, Janiya RLevar Primary Care Unavailable Zieber, Janiya RLevar Admitting Unavailable RamboebJaniya croft R. Attending Unavailable Zieber, Janiya R. Primary Care Unavailable WestSeda V. Attending Unavailable West, Seda V. Admitting Unavailable Zieber, Janiya R. Primary Care Unavailable West, Seda V. Attending Unavailable Zieber, Janiya R. Admitting Unavailable [...] Admitting Unavailable Zieber, Janiya R. Attending Unavailable Allergies Allergy ClassificationReported Allergen(s)Allergy TypeDate of OnsetReaction(s) Facility (18 sources)Codeine; Translations: [codeine]Drug Owgzyrv78-09-3421[facility]uw[facility] (16 sources)MidazolamDrug Qkamwaw33-83-2604Tftyx, VERSEDCherrington Hospital Repository (20 sources)CodeineDrug Wolalum71-31-8158jynxyMWVG Healthcare Work Phone: (7 sources)Midazolam; Translations: [Versed]Drug Bgtpjap01-91-0314jfkwdWdx [facility] Repository (1 source)CodeineDrug AllergyUnkWizeline Other (1 source)Allergies ReconciledPropensity to adverse reactionsSt. Joseph Regional Medical CenterOxyBand Technologies Other (1 source)Versed *HYPNOTICS/SEDATIVES/SLEEP DISORDER AGENTS*Propensity to adverse reactionsCranberry Specialty HospitalWizeline Other (1 source)patient allergy list reviewed by nurse or physiciaPropensity to adverse -35-2026Nlltcof:[employer] Other (16 sources)MidazolamDrug Slrwwjo76-80-8378CsgwtWCEP Healthcare (10 sources)Versed *HYPNOTICS/SEDATIVES/SLAllergy to kjfnadwzr03-23-9464 Samaritan HospitalComment on above:Free Text Allergy: Versed *HYPNOTICS/SEDATIVES/SLEEP DISORDER AGENTS* Medications Current Medications MedicationDrug Class(es)DatesSig (Normalized)Sig (Original)ascorbic acid 500 mg oral capsule (1 source)Vitamin CAscorbic Acid (Vitamin C) 500 MG capsule Orally 0 Active Calcium (16 sources)Phosphate Binder, Calciumcalcium 200 MG tablet Calcium Activecalcium 200 MG tablet Calcium 0 ActiveCalcium Carb,Lactat-Vitamin D3 200 mg-6.25 mcg (250 unit) tablet (2 sources)Start: 57-74-5153byhf 1 tablet by mouth once dailyCalcium Carb,Lactat-Vitamin D3 200 mg-6.25 mcg (250 unit) tablet Active 1 TAB PO Daily March 21, 2025 11:00pm Complies with drug therapyStart: 80-37-7914Jjeipup Carb,Lactat-Vitamin D3 200 mg-6.25 mcg (250 unit) tablet Active TAB PO March 222:00am Complies with drug therapycetirizine hydrochloride 10 mg oral capsule (20 sources)Histamine-1 Receptor AntagonistStart: 97-47-9013fqbf 1 capsule by mouth once daily as neededCetirizine (Zyrtec) 10 mg capsule Active 10 MG PO Daily as needed for allergy symptoms March 21, 2025 11:00pm Complies with drug therapytake 2 tablets by mouth once dailycetirizine (ZyrTEC) 5 MG tablet Take 10 mg by mouth Daily Activetake 1 tablet by mouth once dailyZyrTEC 10 MG 1 tablet Orally Once a day Activecholecalciferol 0.025 mg oral capsule (16 sources)Vitamin Dcholecalciferol (Vitamin D-3) 25 MCG (1000 UT) capsule Vitamin D-3 Activecholecalciferol (Vitamin D-3) 25 MCG (1000 UT) capsule Vitamin D-3 0 Activeivermectin 10 mg/ml topical cream (2 sources)Antiparasitic, PediculicideStart: 82-06-8521Zfmsoksjbq 1 % cream Active 1 APPLIC TOPICAL Daily March 21, 2025 11:00pm Complies with drug t herapy1 ml medroxyPROGESTERone acetate 150 mg/ml injection (20 sources)ProgestinStart: 50-89-8579sjiuzmtFHQVJQYFOwww (Depo-Provera) injection 150 mgStart: 70-70-2328jquimjwIHISRKGACihj (Depo-Provera) injection 150 mgStart: 05-14-3724euutsm 1 dose by intramuscular injection mbbg542 mg, Intramuscular, at 150 mL/hr, Administer over 84 Days, Once, On Juliette 11/22/24 at 1530, For 1 doseStart: 06-12-2024 End: 31-89-7606yewndjqPTCJPAKCFmaz (Depo-Provera) 150 MG/ML suspension prefilled syringe injection syringe Indications: control counseling Inject 1 mL (150 mg) into the shoulder, thigh, or buttocks every 3 (three) months 1 mL 3 06/12/2024 06/12/2025 ActiveStart: 59-72-3583itbncnvKBCAPGXUKpim (Depo-Provera) injection 150 mgStart: 96-14-9319ebyzagiLHSEFOXOMhyo (Depo-Provera) 150 MG/ML injection Indications: control counseling INJECT1 ML INTO THE SHOULDER, THIGH, OR BUTTOCKS EVERY 3 MONTHS 1 mL 3 01/09/2024 ActiveStart: 08-02-2023 End: 88-07-1545uvzucmbEDEWNYIEOofj (Depo-Provera) injection 150 mgStart: 08-02-2023 End: 65-86-5231qhfdcncTZWZWBEYKeof (Depo-Provera) injection 150 mgStart: 05-09-2023 End: 33-04-9638xbitpbuFAECVUQGWyju (Depo-Provera) 150 MG/ML injection Indications: control counseling Inject1 mL (150 mg) into the shoulder, thigh, or buttocks every 3 (three) months 1 mL 0 07/25/2023 ActiveDepo-Provera 150 MG/ML 1 mL Intramuscular ActiveMultivitamin preparation (12 sources)Start: 26-03-0739voqg 1 tablet by mouth once dailyMultivitamin Active 1 TAB PO Daily August 31, 2018 1:00amStart: 85-28-1749yiot 1 tablet by mouth once dailyMultivitamin Active 1 TAB PO Daily August 31, 2018 12:00am Multivitamin Tablet (2 sources)Start: 56-69-2532xecb 1 tablet by mouth once dailyMultivitamin Tablet Active 1 TAB PO Daily August 31, 2018 12:00am Complies with drug therapyStart: 48-46-3107xleq 1 tablet by mouth once dailysertraline 50 mg oral tablet (3 sources)Serotonin Reuptake InhibitorStart: 71-11-3662mygh 1 tablet by mouth once dailySertraline HCl 50 MG 1 tablet Orally Once a day for 30 days Nov, ActiveStart: 65-08-5389fhuyrpsiyh 0.45 mg/ml topical lotion (4 sources)RetinoidArazlo 0.045 % 1 application Externally Once a day Active Arazlo 0.045 % 1 application Externally Once a day Active Completed/Discontinued Medications MedicationDrug Class(es)DatesSig (Normalized)Sig (Original)24 hr dilTIAZem hydrochloride 120 mg extended release oral capsule (14 sources)Calcium Channel BlockerStart: 08-31-2018 End: 59-85-6817bkxp 1 capsule by mouth once daily, then take 1 capsule by mouth every twenty-four hoursDiltiazem Hcl (Cardizem Cd) 120 mg capsule,extended release 24hr Discontinued 120 MG PO Daily 60 0 August 31, 2018 12:00am March 22, 2025 10:51amzolpidem tartrate 6.25 mg extended release oral tablet (19 sources)gamma-Aminobutyric Acid-ergic AgonistStart: 08-10-2023 End: 11-52-8060ucgb 1 tablet by mouth once daily at bedtimeZolpidem 6.25 mg tablet,ext release multiphase Discontinued 6.25 MG PO Daily at bedtime 30 30 0 September 26, 2023 11:45am March 22, 2025 10:51am Insomnia Insomnia, unspecifiedStart: 06-22-2023 End: 42-12-4248hswi 1 tablet by mouth once daily at [...] disorder; Translations: [Other specified anxiety disorders] Onset: 38-00-4998McejgraXyycpg (4 sources)Asthma; Translations: [Unspecified asthma, uncomplicated]Chronic Cardiac dysrhythmias (1 source)Supraventricular tachycardia; Translations: [Supraventricular tachycardia]ChronicContraceptive and procreative management (6 sources)Surveillance of depot contraception done; Translations: [Encounter for surveillance of injectable contraceptive]Onset: 04-06-2022 Resolved: 643528-93-4305HsqyzqdnMhydhnfttslkhoxc hemorrhage (3 sources)Rectal hemorrhage; Translations: [Hemorrhage of anus and rectum] EpisodicImmunizations and screening for infectious disease (2 sources)Encounter for screening for human papillomavirus (HPV); Translations: [Human papilloma virus screening]Onset: 36-73-0766ImtknxufJloaupi and fatigue (2 sources)Other fatigue; Translations: [OTHER FATIGUE]Onset: 57-97-9204Zhzfnxsr Mycoses (1 source)Candidiasis; Translations: [Candidiasis, unspecified]EpisodicOther aftercare (1 source)Long-term current use of drug therapy; Translations: [Other usp (current) drug therapy]EpisodicOther connective tissue disease (5 sources)Pain in right lower leg; Translations: [PAIN IN RIGHT LOWER LEG] Onset: 48-13-4168LepnrsrcBsgcb connective tissue disease (1 source)Trochanteric bursitis, right hipEpisodicOther connective tissue disease (5 sources)Lateral epicondylitis of left humerus; Translations: [Lateral epicondylitis, left elbow]44-94-5257KyszjvoiNyzbx connective tissue disease (4 sources)Lateral epicondylitis, left elbow; Translations: [Lateral epicondylitis]38-20-8208JzwjvpaaWwisi connective tissue disease (2 sources)Pain of toe of right foot; Translations: [Pain in right toe(s)] 99-62-6818MndycqxeFedgw screening for suspected conditions (not mental disorders or infectious disease) (16 sources)Encounter for screening mammogram for malignant neoplasm of breast; Translations: [Encounter for screening for malignant neoplasm of cervix]Onset: 00-67-7567ZwqlllldCwdhz skin disorders (2 sources)Ingrowing toenail; Translations: [Ingrowing nail]16-57-8964Rysciytd Other upper respiratory infections (1 source)Chronic sinusitis; Translations: [Chronic sinusitis, unspecified] ChronicPhlebitis; thrombophlebitis and thromboembolism (7 sources)Deep venous thrombosis of peroneal vein; Translations: [Acute embolism and thrombosis of unspecified deep veins of left distal lower extremity]Onset: 64-08-4440BylqaajpPtytyghg codes; unclassified (8 sources)Postmenopausal state; Translations: [Asymptomatic menopausal state] Onset: 120282-05-9895DwmmnkvrLqpygzzb codes; unclassified (1 source)Postprocedural state finding; Translations: [Other specified postprocedural states]EpisodicResidual codes; unclassified (1 source)Tobacco user; Translations: [Tobacco use]EpisodicResidual codes; unclassified (10 sources)Insomnia; Translations: [Insomnia, unspecified]32-24-8745Bngkotfu Unclassified (1 source)Acute candidiasis of vulva and vagina; Translations: [Acute candidiasis of vulva and vagina]Unclassified (1 source)Patient encounter statusUnclassified (1 source)K62.5 - Hemorrhage of anus and rectum,Z12.11 - Encounter for screening for malignant neoplasm of colonVaricose veins of lower extremity (3 sources)Varicose veins of bilateral lower extremities with pain; Translations: [Varicose veins of bilaterallower extremities with pain]Onset: 69-13-7917QbofdljgVolcn infection (14 sources)Disease caused by nCo; Translations: [COVID-19]05-24-2021 EpisodicComment on above:Problem List clean-up per request of Phys. EHR Cmte Viral infection (1 source)Disease caused by nCoV; Translations: [COVID-19] Past or Other Problems Problem ClassificationProblemDateDocumented DateEpisodic/ChronicBlindness and vision defects (1 source)Visual disturbance; Translations: [Unspecified visual disturbance] Onset: 46-13-8458KdqibbxbYrkfpfgy; including migraine (1 source)Headache; Translations: [Headache]Onset: 20-55-6773VcdyvpatEafoh connective tissue disease (1 source)Pain in limb; Translations: [Pain in soft tissues of limb]Onset: 61-63-6353IdgyycueErriu female genital disorders (1 source)Dysplasia of cervix; Translations: [Dysplasia of cervix uteri, unspecified]Onset: 65-05-4963GxhszcqwPqbih upper respiratory infections (1 source)Acute maxillary sinusitis; Translations: [Acute recurrent maxillary sinusitis]Onset: 15-93-6586GdpvhhscCbvozlcg codes; unclassified (1 source)Asymptomatic menopausal state; Translations: [ASYMPTOMATIC MENOPAUSAL STATE]Onset: 70-37-9297ZugkkpsnXrkelppm codes; unclassified (1 source)Other specified health status; Translations: [Health status] Resolved: 38-31-2235YxwtbumqFlfmrmifoee; intervertebral disc disorders; other back problems (1 source)Disorder of sacrococcygeal spine; Translations: [Sacrococcygeal disorders, not elsewhere classified]Onset: 91-70-9677RgqrbmtmOjvjuoxvjogn (1 source)Contraception care management; Translations: [Unspecified contraceptive management] Results Test NameValueInterpretationReference RangeFacilityPatient Handouton 05-07-2025 Patient HandoutRadiology Sclerotherapy, Care After After sclerotherapy, it [...] cannot use soap and water, use hand jig boring machine set up operator. ? Change your bandage. ? Check the [...] safe for you. General instructions ? Take jkrm-hza-brbdafo and prescription medicines only as told by [...] provider. Document Revised: 09/16/2022 Document Reviewed: 09/16/2022 Elephant.is Patient Education ? 2024 [employer].[facility],Urine on 23-12-7482Innw HCG ( test) Ql (U)NegativeNormBroward Health North Physician GroupComment on above:Result Comment: PERFORMED BY: [place] [address] [place] [address] PATHOLOGIST HVAC SERVICE TECHNICIAN SOCO LOPEZ M.D.Performed By: #### UHCG #### [place] [id number] Pao 05-01-2025L Specimen: [id number] Received: 05/01/25 Status: JUSTO Poon Num: [id number] Spec Type: Surgical Subm Dr: Cuauhtemoc Muro MD Tissues: A Colon Biopsy (RANDOM COLON BX'S) Procedures: Marcia HERNÁNDEZ/Naman L4 Age/ Patient Sex Location Account Attending Physician Julia Quipse 54/F [id number] Cuauhtemoc Muro MD SPEC NUM: [id number] RECD: 05/01/25 STATUS: JUSTO ELLEN NUM: [id number] KARLI: 05/01/[address] [facility] DR: Cuauhtemoc Muro MD ENTERED: 05/01/[address] [facility] [address]: SPEC TYPE: Surgical DEPT: S ENTERED BY: [id number] RECV BY: [id number] ORDERED: HE/2, Gross/Micro L4 ORDERED: HE/2, Gross/Micro L4 Pathological Diagnosis A. Colon, random, biopsy: ? Colonic mucosa with no significant pathologic change. Clinical Information Rectal bleeding, rule out microscopic colitis Gross Description Part A is received in formalin labeled with the patient's date of , and Basim, random colon BX's are 2 bull-oscar, focally erythematous, friable, 0.4 and 0.5 cm in greatest dimension tissue bits. The specimen is entirely submitted in a single cassette. (1, ns, [id number]) CPT Codes 65178 Specimen: [id number] Received: 05/01/25 Status: JUSTO Poon Num: [id number] Spec Type: Surgical Subm Dr: Cuauhtemoc Muro MD Tissues: A Colon Biopsy (RANDOM COLON BX'S) Procedures: HE/2, Marcia/Naman L4 Patient: Julia Quispe [id number] (Continued) Signed (signature on file) Palomo Lopez MD 05/03/25 0819 [facility] Physician GroupCoding Summaryon 50-51-0351Etzhru Summary HTMLBase 64 DcolhtuqQMh2vXn+PGhlYWQ+RG3ICVSeN88ezTPpxR1vP3RJSZpJAebrPJTMFMvLVvFhapVrZG7dlQJu ZXJu [file] ZTo (more content not included)...[facility] Medical CenterUS Injection Spider Veinson 69-19-6413PN Injection Spider VeinsEXAMINATION: US Injection Spider Veins HISTORY: I83.813 The risks and benefits of the procedure were explained at length to the patient and informed written consent was obtained. The procedure was performed under sterile technique. The patient's leg was wrapped with Coban and postprocedural verbal and written instructions provided. Winston Liz RN was present and assisted. SCLEROSANT: 4 mL 0.5% Polidocanol (5 mg/ml non-compounded). VEIN(S) INJECTED: 26 veins in the right leg. VISUALIZATION: Ultrasound was not used to visualize the sclerosant. ANESTHESIA: Supercooled air. COMPLICATIONS: None. Final Dictated by: Janiya Hayes MD Dictated DT/TM: 04/26/25 5:34 Signed (Electronic Signature): Janiya Hayes MD 04/26/25 5:35 am Technologist: [facility] SouthPatient Handouton 13-80-5483Lzuajpe HandoutSclerotherapy, Care After After sclerotherapy, it is common [...] cannot use soap and water, use hand jig boring machine set up operator. ? Change your bandage. ? Check the [...] safe for you. General instructions ? Take sckx-fij-eecsoir and prescription medicines only as told by [...] provider. Document Revised: 09/16/2022 Document Reviewed: 09/16/2022 Elephant.is Patient Education ? 2024 [employer]. Radiology Sclerotherapy, Care After After sclerotherapy, it [...] cannot use soap and water, use hand jig boring machine set up operator. ? Change your bandage. ? Check the [...] safe for you. General instructions ? Take kbze-dln-jlobcjq and prescription medicines only as told by [...] ? Wear loose-fitting clothes on the treatment (more content not included)... [facility] TOMOSYNTHESIS SCREENING BIon 64-38-3017[place], [place] [address] Mammography Report Signed Patient: JULIA QUISPE MR#: [id number] : 1970 Acct:[id number] Age/Sex: 54 / F ADM Date: 04/18/25 Loc: MAMMO Attending Dr: Luis Angel Esquivel D.O. Ordering Physician: Luis Angel Esquivel D.O. Results: Date of Service: 04/18/25 Follow Up: Procedure(s): MM tomosynthesis screening BI Accession Number(s): [id number] cc: Jacques Zavala M.D.; Luis Angel Esquivel D.O. Patient Name: JULIA QUISPE MR#: [id number] : 1970 Exam Date: 04/18/2025 Ordering Doctor: DR LUIS ANGEL ESQUIVEL . RADIOLOGY REPORT PROCEDURE: MM TOMOSYNTHESIS SCREENING BI COMPARISON: MM TOMOSYNTHESIS SCREENING BI, 04/12/2024. MG MAMM SCREEN 3D KATARINA CAD, 05/07/2022. MG MAMM SCREEN 3D KATARINA CAD, 01/08/2021. MG MAMM KATARINA SCRN W CAD DIG, 12/04/2013. INDICATIONS: screening Calculator Name NCI Breast Cancer Risk Assessment Tool 5 Year Breast Cancer Risk 2.10% Lifetime Breast Cancer Risk 15.50% Personal Breast Cancer No Personal Ovarian Cancer No Treatments None Family Cancers None LOCATION: [facility] BREAST COMPOSITION: The breasts are heterogeneously dense, which may obscure small masses. FINDINGS: RIGHT BREAST: No significant suspicious finding. LEFT BREAST: No significant suspicious finding. DIAGNOSTIC CATEGORY 1--NEGATIVE. RECOMMENDATIONS: ROUTINE MAMMOGRAM AND CLINICAL EVALUATION IN 12 MONTHS. Dictated by: Dennis Fuentes DO on 04/18/2025 at 15:25 Approved by: Dennis Fuentes DO on 04/18/2025 at 15:26 Dictated By: Dennis Fuentes D.O. Signed By: 04/18/25 1527 DD/ 1526 TD/TT: Lube Worker:TBHRadiology, Radiologist, MD - 05/07/2025 [place] [address] Mammography Report Signed Patient: JULIA QUISPE MR#: [id number] : 1970 Acct:[id number] Age/Sex: 54 / F ADM Date: 04/18/25 Loc: MAMMO Attending Dr: Luis Angel Esquivel D.O. Ordering Physician: Luis Angel Esquivel D.O. Results: Date of Service: 04/18/25 Follow Up: Procedure(s): MM tomosynthesis screening BI Accession Number(s): [id number] cc: Jacques Zavala M.D.; Luis Angel Esquivel D.O. Patient Name: JULIA QUISPE MR#: [id number] : 1970 Exam Date: 04/18/2025 Ordering Doctor: DR LUIS ANGEL ESQUIVEL . RADIOLOGY REPORT PROCEDURE: MM TOMOSYNTHESIS SCREENING BI COMPARISON: MM TOMOSYNTHESIS SCREENING BI, 04/12/2024. MG MAMM SCREEN 3D KATARINA CAD, 05/07/2022. MG MAMM SCREEN 3D KATARINA CAD, 01/08/2021. MG MAMM KATARINA SCRN W CAD DIG, 12/04/2013. INDICATIONS: screening Calculator Name NCI Breast Cancer Risk Assessment Tool 5 Year Breast Cancer Risk 2.10% Lifetime Breast Cancer Risk 15.50% Personal Breast Cancer No Personal Ovarian Cancer No Treatments None Family Cancers None LOCATION: [facility] BREAST COMPOSITION: The breasts are heterogeneously dense, which may obscure small masses. FINDINGS: RIGHT BREAST: No significant suspicious finding. LEFT BREAST: No significant suspicious finding. DIAGNOSTIC CATEGORY 1--NEGATIVE. RECOMMENDATIONS: ROUTINE MAMMOGRAM AND CLINICAL EVALUATION IN 12 MONTHS. Dictated by: Dennis Fuentes DO on 04/18/2025 at 15:25 Approved by: Dennis Fuentes DO on 04/18/2025 at 15:26 Dictated By: Dennis Fuentes D.O. Signed By: 04/18/25 1527 DD/ 1526 TD/TT: Lube Worker: [facility] CenterRadiology Study observation (narrative)[facility] TOMOSYNTHESIS SCREENING BIOrdered By: Radiologist Radiology on 29-81-4023FTSG [employer] Work Phone: Outside Recordson 10-10-2046Tqdwzre Records [id number]#1.00[facility] Coding Summaryon 22-31-4954Mghrac SummaryHTMLBase 64 IzwyioqiOOf5iPj+PGhlYWQ+MY6SDJLoS76enYFsqT7mH0JZNFuRSlmzTGOPOSsCWdArvuRkQV1zoMHq ZXJu [file] ZTo (more content not included)...NormalLima City Hospital HospitalIGP,APTIMA HPV,AGE GDLN on 16-81-1584WSM GDLN ACOG TESTINGNote.NOMS HealthcareComment on above:TESTS RESULT FLAG UNITS REF RANGE LAB Clinician Provided Cytology Information Source.............Cervix No. of containers..01 ThinPrep Vial Age Algo ACOG Berta... 30-65 01 FLAG LEGEND: L-Low Normal,H-High Normal,LL-Alert Low,HH-Alert High <-Panic Low,>-Panic High,A-Abnormal,AA-Critical Abnormal Performed at: 01 =[address] [address] Verna Velez MD, HPV APTIMANegativeNegativeNOMS HealthcareComment on above:This nucleic acid amplification test detects fourteen high- risk HPV types (16,18,31,33,35,39,45,51,52,56,58,59,66,68) without differentiation. Performed at: =[facility] [id number] Proposal Manager: Verna Velez MD, Phone: [phone] Performed at: [address] [id number] Proposal Manager: Verna Velez MD, Phone: [phone] IGP, APTIMA HPV, RFX 16/18,45Note.NOMS HealthcareComment on above:TESTS RESULT FLAG UNITS REF RANGE LAB DIAGNOSIS: 02 NEGATIVE FOR INTRAEPITHELIAL LESION OR MALIGNANCY. CELLULAR CHANGES ASSOCIATED WITH ATROPHY ARE PRESENT. Specimen adequacy: 02 Satisfactory for evaluation. Endocervical component may not be distinguished in cases of atrophy. Performed by: Jeff Braswell, Roving Weight Gauger ([facility]) . 02 Note: Note 02 [...] <-Panic Low,>-Panic High,A-Abnormal,AA-Critical Abnormal Performed at: [address] [place] [address] Verna Velez MD, BRUSH-SPATULA CERVIX CLINISYNCNOMS [facility] Medical CenterUS LE Venous Duplex Lefton 90-88-3652MI LE Venous Duplex LeftEXAMINATION: US LE Venous [...] Janiya Hayes MD 03/19/25 3:59 pm Technologist: [facility] papilloma virus 16+18+31+33+35+39+45+51+52+56+58+59+66+68 DNA [Presence] in CerOrdered By: Luis Angel Esquivel on 17-64-8210GRL 16+18+31+33+35+39+45+51+52+56+58+59+66+68 DNA Probe+sig amp Ql (Cvx)NegativeNegativeAccess Hospital DaytonComment on above: This nucleic acid amplification test detects fourteen high-risk HPV types (16,18,31,33,35,39,45,51,52,56,58,59,66,68)without differentiation.Performed at: =G - [facility] [id number] Director: Verna Velez MD, Phone: [phone] at: [facility] [id number] Director: Verna Velez MD, Phone: [phone] Panel InformationOrdered By: Luis Angel Esquivel on 82-86-5159SKU High Risk Other CommentNote.[facility] DaytonComment on above:TESTS RESULT FLAG UNITS REF RANGE LAB DIAGNOSIS: 02 NEGATIVE FOR INTRAEPITHELIAL LESION OR MALIGNANCY. CELLULAR CHANGES ASSOCIATED WITH ATROPHY ARE PRESENT.Specimen adequacy: 02 Satisfactory for evaluation. Endocervical component may not bedistinguished in cases of atrophy.Performed by: Jeff Braswell Roving Weight Gauger ([facility]). 02Note: Note 02 The Pap [...] <-Panic Low,>- Panic High,A-Abnormal,AA-Critical Abnormal Performed at:[address] [facility] [address], [place] Verna Velez MD, Agfhublze Lab Test Patient AgeNote.Access Hospital DaytonComment on above: TESTS RESULT FLAG UNITS REF RANGE LAB Clinician Provided Cytology Information Source.............Cervix No. of containers..01 ThinPrep VialAge Peggy OREILLY Berta... 30-65 FLAG LEGEND: L- Low Normal,H-High Normal,LL-Alert Low,HH-Alert High <-Panic Low,>-Panic High,A-Abnormal,AA-Critical Abnormal Performed at:01 =[address] [place] [address] Verna Velez MD, Cfgnkv Summaryon 79-69-9603Azvcnm SummaryDELTA COMMUNITY MEDICAL CENTERBase 64 IrwqgdydFCq2zPm+PGhlYWQ+BJ5WTHRtN23mdVSjaT0mP7RPNPfHBodqKZJEEOcNLzBlpoLfBW1ndQRu ZXJu [file] ZTo (more content not included)...[facility] LE Venous Duplex Lefton 65-76-8286MK LE Venous Duplex LeftEXAMINATION: US LE Venous [...] Janiya Hayes MD 02/26/25 4:38 pm Technologist: [facility] SouthCoding Summaryon 93-53-4681Okawpi Summary HTMLBase 64 FvexzmniBJr6cPr+PGhlYWQ+AB8AFWSkW93ujPSjqB5jB3WWTHgOPgbpJWKZBRxZFlXchfXgCR8yfMIn ZXJu [file] ZTo (more content not included)...[facility] CenterPatient Handouton 50-16-7511Xmbvaos HandoutRadiology Sclerotherapy, Care After After sclerotherapy, it [...] cannot use soap and water, use hand jig boring machine set up operator. ? Change your bandage. ? Check the [...] safe for you. General instructions ? Take lwol-uoc-jzgvdqy and prescription medicines only as told by [...] provider. Document Revised: 09/16/2022 Document Reviewed: 09/16/2022 Elephant.is Patient Education ? 2024 Bracketz.[facility] Medical CenterCoding Summaryon 58-29-8319Bqmkcf SummaryHTMLBase 64 GjrtjncdVCk3zUk+PGhlYWQ+IF5KEHQiO89roJMipX8iJ7PUQFcFCfbfYZBGSXjBPyZkdiWrVM4lgSWq ZXJu [file] ZTo (more content not included)...NormalSt. Francis HospitalUS LE Venous Duplex Righton 88-92-3539RX LE Venous Duplex RightEXAMINATION: US LE Venous [...] Janiya Hayes MD 02/07/25 4:03 pm Technologist: AguedaheriSt. Francis HospitalCoding Summaryon 17-99-1476Wvsmyf Summary HTMLBase 64 MjgsadguJKs4oVe+PGhlYWQ+OM6SXLOhS59wwESjyL7tU3HJFUnHKcyfLFUACDcLApSfbkYtAM6kpGRx ZXJu [file] ZTo (more content not included)...[facility] CenterPatient Handouton 35-25-9811Xehdxxj HandoutRadiology Sclerotherapy, Care After After sclerotherapy, it [...] cannot use soap and water, use hand jig boring machine set up operator. ? Change your bandage. ? Check the [...] safe for you. General instructions ? Take eguu-olz-hbowpdr and prescription medicines only as told by [...] provider. Document Revised: 09/16/2022 Document Reviewed: 09/16/2022 Elephant.is Patient Education ? 2024 Bracketz.[facility] Medical CenterCoding Summaryon 62-21-5181Hgukrm SummaryHTMLBase 64 YsqivfzwOJd6lGp+PGhlYWQ+WM3TLEEdM58hjUXhoV5wK3RJTGaYMgrcXGVUCXcFIcIashZlVA4kySZn ZXJu [file] ZTo (more content not included)...NormalLima City Hospital HospitalCoding SummaryHTMLBase 64 KiyiosarIXw8uZe+PGhlYWQ+RS9NKMAqA68pwPRsyW9lD8LMDBeALnysVCNHUFjYXcEgmzQvBM7scLKr ZXJu [file] ZTo (more content not included)...[facility] LE Venous Duplex Lefton 56-46-9317FA LE Venous Duplex LeftEXAMINATION: US LE Venous [...] Janiya Hayes MD 01/22/25 3:38 pm Technologist: [facility] SouthCoding Summaryon 68-61-0902Mesafp Summary HTMLBase 64 HrcowukpSWd4kPq+PGhlYWQ+XE5YOLLsB86csTFxiY4yC8WYJKrBFcnmXMXHJHdDFjHukfEdCF2mdRCz ZXJu [file] ZTo (more content not included)...[facility] Medical CenterUS Endovenous Ablation 1st Veinon 55-13-5242PZ Endovenous Ablation 1st VeinEXAMINATION: US Endovenous Ablation [...] Janiya Hayes MD 01/18/25 6:22 am Technologist: Fr[facility] HospitalCoding Summaryon 53-38-8765Vguhhs Summary HTMLBase 64 OcpyyebpOMd9bTu+PGhlYWQ+ES4FDSDgY44frLEcpA9mS1CAQJwYCfvhLQAPMUzCTnHrooNmIO7ogKDf ZXJu [file] ZTo (more content not included)...[facility] LE Venous Duplex Righton 55-33-6846HG LE Venous Duplex RightEXAMINATION: US LE Venous [...] Seda Urias MD 01/10/25 4:16 pm Technologist: [facility] SouthCoding Summaryon 05-68-0995Nnijea Summary HTMLBase 64 RnvftebzFRi9zPv+PGhlYWQ+GC6ENRGeA14jvQJowJ9dD9AEALkYQyhpJDCESBtQZdFsflQpMO4hkOJx ZXJu [file] ZTo (more content not included)...[facility] HospitalCoding Summaryon 85-53-3568Mkgfvi SummaryHTMLBase 64 FmsdyrqxLSu2oWf+PGhlYWQ+RJ0IWFFuI23gdPRktV2eH4RGMMyTWrflQQVMUXgGVuTgsjTvXX8ffYSh ZXJu [file] ZTo (more content not included)...[facility] Medical CenterUS Endovenous Ablation 1st Veinon 63-46-4040EW Endovenous Ablation 1st VeinEXAMINATION: US Endovenous Ablation [...] Janiya Hayes MD 01/03/25 11:07 a Technologist: [facility] LE Venous Duplex Lefton 15-48-1040HT LE Venous Duplex LeftEXAMINATION: US LE Venous [...] Seda Urias MD 01/01/25 8:26 am Technologist: [facility] Endovenous Ablation 1st Veinon 12-62-3883LV Endovenous Ablation 1st VeinEXAMINATION: US Endovenous Ablation 1st Vein HISTORY: Varicose veins of bilateral lower extremities with pain The risks and benefits of the procedure had been previously discussed, and were rediscussed at length. Informed written consent was obtained. Mera Connolly and Joy Majaon RDMS, RVT assisted. Time out procedure was [...] Janiya Hayes MD 12/26/24 6:53 am Technologist: [facility] SouthOutside Recordson 41-40-7660Jntmshf [id number]#1.00OTGTOhioHealth Pickerington Methodist HospitalCoding Summaryon 55-18-8629Uqukwe SummaryHTMLBase 64 GltdmpqvYQl8vSb+PGhlYWQ+IA4INFUvN62btURumN2oF7BZIQoKIvuoQNKLVDuIVpCqkoXiZF8evFAa ZXJu [file] bGF (more content not included)...[facility] Medical CenterConsent Forms - Physicianon 23-33-1366Jmfonef Forms - Physician [id number]#1.00OTGTIFFNoRegional Medical CenterUS Venous Insufficiency Bilaton 25-47-8229KJ Venous Insufficiency BilatEXAMINATION: US Venous Insufficiency Bilat [...] Janiya Hayes MD 11/28/24 4:23 pm Technologist: [facility] ( test) Ql (U)on 11-22-2024 Interpretation and review of laboratory resultsNormalNOMS HealthcarePreg Test, UrNegativeNegativeNOMS HealthcareNOMS HealthcarePatient Handouton 11-12-2024 Patient HandoutCardiovascular Varicose Veins [...] these instructions at home: Medicines ? Take pylq-haj-mtorngj and prescription medicines only as told by [...] trouble breathing. ? Y (more content not included)...[facility] Medical CenterXR DEXA AXIAL SKELETON on 76-[place]1968[place] [address] XRay Report Signed Patient: JULIA QUISPE MR#: [id number] : 1970 Acct:[id number] Age/Sex: 53 / F ADM Date: 04/12/24 Loc: [facility] Attending Dr: Luis Angel Esquivel D.O. Ordering Physician: Luis Angel Esquivel D.O. Date of Service: 04/12/24 Procedure(s): XR DEXA axial skeleton Accession Number(s): [id number] cc: Jacques Zavala M.D.; Luis Angel Esquivel D.O. [address] [address] Patient Name: JULIA QUISPE MRN: [id number] date: 1970 Sex: F Assigned Patient Location: [facility] Current Patient Location: Accession/Order Number: [id number] Exam Date: 04/12/2024 15:05 Report Date: 04/16/2024 07:31 At the request of: LUIS ANGEL ESQUIVEL Procedure: XR DEXA axial skeleton EXAMINATION: [...] prevention and treatment of osteoporosis. Osteoporos Int. 2021;33(10):2369-5854. doi: 10.1007/m47617-996-02797-h. Epub 2021Oct 22. Erratum in: Osteoporos Int. 2021Jan 21;: PMID: 57324428; PMCID: PPR8149338. Electronically authenticated by: SEDA URIAS Date: 04/16/2024 07:31 Dictated By: Seda Urias M.D. Signed By: 04/16/24 0734 DD/ TD/TT: Lube Worker:TBHRadiology, Radiologist, - 04/16/2024 [place] [address] XRay Report Signed Patient: JULIA QUISPE MR#: [id number] : 1970 Acct:[id number] Age/Sex: 53 / F ADM Date: 04/12/24 Loc: RAD Attending Dr: Luis Angel Esquivel D.O. Ordering Physician: Luis Angel Esquivel D.O. Date of Service: 04/12/24 Procedure(s): XR DEXA axial skeleton Accession Number(s): [id number] cc: Jacques Zavala M.D.; Luis Angel Esquivel D.O. [place] [address] Patient Name: JULIA QUISPE MRN: [id number] date: 1970 Sex: F Assigned Patient Location: [facility] Current Patient Location: Accession/Order Number: [id number] Exam Date: 04/12/2024 15:05 Report Date: 04/16/2024 07:31 At the request of: LUIS ANGEL ESQUIVEL Procedure: XR DEXA axial skeleton EXAMINATION: [...] prevention and treatment of osteoporosis. Osteoporos Int. 2021;33(10):7455-3696. doi: 10.1007/l72631-089-48737-a. Epub 2021Oct 22. Erratum in: Osteoporos Int. 2021Jan 21;: PMID: 38346739; PMCID: ZAQ8702789. Electronically authenticated by: SEDA URIAS Date: 04/16/2024 07:31 Dictated By: Seda Urias M.D. Signed By: 04/16/2434 DD/ 0 TD/TT: Lube Worker: REGINO HealthcareRadiology Study observation (narrative)[facility] HealthcareXR DEXA AXIAL SKELETONOrdered By: Radiologist Radiology on 85-96-9673QYUF [employer] Work Phone: mm TOMOSYNTHESIS SCREENING BIon 56-08-2260[place], [place] [address] Mammography Report Signed Patient: JULIA QUISPE MR#: [id number] : 1970 Acct:[id number] Age/Sex: 53 / F ADM Date: 04/12/24 Loc: RAD Attending Dr: Luis Angel Esquivel D.O. Ordering Physician: Luis Angel Esquivel D.O. Results: Date of Service: 04/12/24 Follow Up: Procedure(s): MM tomosynthesis screening BI Accession Number(s): [id number] cc: Jacques Zavala M.D.; Luis Angel Esquivel D.O. Patient Name: JULIA QUISPE MR#: [id number] : 1970 Exam Date: 04/12/2024 Ordering Doctor: DR Luis Angel Esquivel . RADIOLOGY REPORT PROCEDURE: MM TOMOSYNTHESIS SCREENING BI COMPARISON: MG MAMM SCREEN 3D KATARINA CAD, 05/07/2022. INDICATIONS: Screening Calculator Name NCI Breast Cancer Risk Assessment Tool 5 Year Breast Cancer Risk 2.00% Lifetime Breast Cancer Risk 15.70% Personal Breast Cancer No Personal Ovarian Cancer No Treatments None Family Cancers None LOCATION: [facility] BREAST COMPOSITION: The breasts are heterogeneously dense,which [...] BIOPSIED. Dictated by: Seda Urias MD on 04/12/2024 at 16:27 Approved by: eSda Urias MD on 04/12/2024 at 16:28 Dictated By: Seda Urias M.D. Signed By: 04/12/241628 DD/ 27 TD/TT: Lube Worker:JORDANHRadiology, RadiologistMD - 04/12/2024 [place] [address] Mammography Report Signed Patient: JULIA QUISPE MR#: [id number] : 1970 Acct:[id number] Age/Sex: 53 / F ADM Date: 04/12/24 Loc: RAD Attending Dr: Luis Angel Esquivel D.O. Ordering Physician: Luis Angel Esquivel D.O. Results: Date of Service: 04/12/24 Follow Up: Procedure(s): MM tomosynthesis screening BI Accession Number(s): [id number] cc: Jacques Zavala M.D.; Luis Angel Esquivel D.O. Patient Name: JULIA QUISPE MR#: [id number] : 1970 Exam Date: 04/12/2024 Ordering Doctor: DR Luis Angel Esquivel . RADIOLOGY REPORT PROCEDURE: MM TOMOSYNTHESIS SCREENING BI COMPARISON: MG MAMM SCREEN 3D KATARINA CAD, 05/07/2022. INDICATIONS: Screening Calculator Name NCI Breast Cancer Risk Assessment Tool 5 Year Breast Cancer Risk 2.00% Lifetime Breast Cancer Risk 15.70% Personal Breast Cancer No Personal Ovarian Cancer No Treatments None Family Cancers None LOCATION: [facility] BREAST COMPOSITION: The breasts are heterogeneously dense,which [...] BIOPSIED. Dictated by: Seda Urias MD on 04/12/2024 at 16:27 Approved by: Seda Urias MD on 04/12/2024 at 16:28 Dictated By: Seda Urias M.D. Signed By: 04/12/241628 DD/ 27 TD/TT: Lube Worker: [facility] HealthcareRadiology Study observation (narrative)[facility] TOMOSYNTHESIS SCREENING BIOrdered By: Radiologist Radiology on 25-36-0499SAIC Healthcare Work Phone: IGP,APTIMA HPV,AGE GDLNon 89-70-4507FXO GDLN ACOG TESTINGNote.[facility] HealthcareComment on above:TESTS RESULT FLAG UNITS REF RANGE LAB Clinician Provided Cytology Information Source.............Cervix;Endocervix No. of containers..01 ThinPrep Vial Age Algo ACOG Berta... 30-65 FLAG LEGEND: L-Low Normal,H-High Normal,LL-Alert Low,HH-Alert High <-Panic Low,>-Panic High,A-Abnormal,AA-Critical Abnormal Performed at: 01 =[address] [address] Verna Velez MD, HPV APTIMANegativeNegativeNOMS HealthcareComment on above:This nucleic acid amplification test detects fourteen high- risk HPV types (16,18,31,33,35,39,45,51,52,56,58,59,66,68) without differentiation. Performed at: =[address] [id number] Proposal Manager: Verna Velez MD, Phone: [phone] Performed at: [address] [id number] Proposal Manager: Verna Velez MD, Phone: [phone] IGP, APTIMA HPV, RFX 16/18,45Note.NOMS HealthcareComment on above:TESTS RESULT FLAG UNITS REF RANGE LAB DIAGNOSIS: 02 NEGATIVE FOR INTRAEPITHELIAL LESION OR MALIGNANCY. CELLULAR CHANGES ASSOCIATED WITH ATROPHY ARE PRESENT. Specimen adequacy: 02 Satisfactory for evaluation. Endocervical and/or squamous metaplastic cells (endocervical component) are present. Performed by: 02 Beatrice Farooq Supervisor [employer] . 02 Note: Note 02 The Pap [...] <-Panic Low,>-Panic High,A-Abnormal,AA-Critical Abnormal Performed at: [address] [address] Verna Velez MD, BRUSH-SPATULA CERVIX ENDOCERVIX CLINISYNCNOMS [facility] papilloma virus 16+18+31+33+35+39+45+51+52+56+58+59+66+68 DNA [Presence] in [place] 24-96-7312OZK 16+18+31+33+35+39+45+51+52+56+58+59+66+68 DNA Probe+sig amp Ql (Cvx)Negative NegativeAccess Hospital DaytonComment on above:This nucleic acid amplification test detects fourteen high-risk HPV types (16,18,31,33,35,39,45,51,52,56,58,59,66,68)without differentiation.Performed at: = - [address] [id number] Director: Verna Velez MD, Phone: [phone] at: [address], [place], [place] [id number] Director: Verna Velez MD, Phone: [phone] Panel Informationon 99-16-5909VRV High Risk Other CommentNote. Access Hospital DaytonComment on above:TESTS RESULT FLAG UNITS REF RANGE LAB DIAGNOSIS: 02 NEGATIVE FOR INTRAEPITHELIAL LESION OR MALIGNANCY. CELLULAR CHANGES ASSOCIATED WITH ATROPHY ARE PRESENT.Specimen adequacy: 02 Satisfactory for evaluation. Endocervical and/or squamous metaplastic cells (endocervical component) are present.Performed by: Jeff Farooq, Supervisor [employer]. 02Note: Note 02 The Pap smear is [...] Low,>-Panic High,A-Abnormal,AA-Critical Abnormal Performed at:02 [facility] [place] [address] [place] [address] Verna Velez MD, Vbvqjqivn Lab Test Patient AgeNote.Access Hospital DaytonComment on above:TESTS RESULT FLAG UNITS REF RANGE LAB Clinician Provided Cytology Information Source.............Cervix;Endocervix No. of containers..01 ThinPrep VialAge Algo ACOG Berta... FLAG LEGEND: L-Low Normal,H-High Normal,LL-Alert Low,HH-Alert High <-Panic Low,>-Panic High,A- Abnormal,AA-Critical Abnormal Performed a t:01 =[address] [address] Verna Velez MD, OHZ ( test) Ql (U)on 08-02-2023 Interpretation and review of laboratory resultsNormalNOPR HealthcarePreg Test, UrNegativeNOAspirus [facility] Hospital AUTO DIFFon 80-04-5345GXOA #0.0 103/ulNormal0.0-0.1The [facility] AndersonComment on above:Performed By: #### CBC #### [facility] [address] [place], [place] [address] Dr. Neeta Olmedophils/100 WBC (Bld)0.3 %Normal0.2-2.0The [facility] Comment on above:Performed By: #### CBC #### [facility] [address] [place] [address] [address] Neeta Barker #0.0 103/ulNormal0.0-0.7The [facility] - AndersonComment on above: Performed By: #### CBC #### [facility] [address] [place] [address] Dr. Neeta Boudreauxosinophils/100 WBC (Bld)0.3 %Critically low0.9-7.0The [facility] AndersonComment on above:Performed By: #### CBC #### [facility] [address] [place] [address] Dr. Neeta Boudreauxrythrocyte distribution width (RBC) [Ratio]12.9 %Fsaona53.0-15.0 [facility] AndersonComment on above:Performed By: #### CBC #### [facility] [address] [place] [address] Dr. Neeta NunezHematocrit (Bld) [Volume fraction]44.3 %Nhdtkj74.0-48.0The [facility] AndersonComment on above:Performed By: #### CBC #### [facility] [address] [place] [address] Dr. Neeta NunezHemoglobin (Bld) [Mass/Vol]14.6 g/hCQohzjn88.0-16.0The [facility] AndersonComment on above:Performed By: #### CBC #### [facility] [address] [place] [address] Dr. Neeta Seymour #0.01 10e3/ulNormal0.00-0.03The [facility] - AndersonComment on above:Performed By: #### CBC #### [facility] [address] [place] [address] Dr. Neeta Seymour %0.1 %Normal0.0-0.5The [facility] AndersonComment on above: Performed By: #### CBC #### [facility] [address] [place] [address] Dr. Neeta KeaneMPH #2.4 103/ulNormal1.2-3.8The [facility] - AndersonComment on above:Performed By: #### CBC #### [facility] [address] [place] [address] Dr. Neeta NunezLymphocytes/100 WBC (Bld)32.5 %Xflqhn94.5-60.0The [facility] for Rehabilitationment on above:Performed By: #### CBC #### [facility] [address] [place] [address] Dr. Neeta ShafferUAL DIFF REQNONormalThe [facility] - AndersonComment on above: Performed By: #### CBC #### [facility] [address] [place] [address] Dr. Neeta Lujan (RBC) [Entitic mass]31.7 nzXbyhcq77.7-34.0The [facility] AndersonComment on above:Performed By: #### CBC #### [facility] [address] [place] [address] Dr. Neeta Lujan (RBC) [Mass/Vol]33.0 g/aHAxnptq49.9-35.2The [facility] AndersonComment on above:Performed By: #### CBC #### [facility] [address] [place] [address] Dr. Neeta Lujan (RBC) [Entitic vol]96.1 tRCchcym78.0-99.0The [facility] AndersonComment on above:Performed By: #### CBC #### [facility] [address] [place] [address] Dr. Neeta Crawford #0.4 103/ulNormal0.3-0.8The [facility] AndersonComment on above:Performed By: #### CBC #### [facility] [address] [place] [address] Dr. Neeta Martinezocytes/100 WBC (Bld)5.3 %Normal1.7-12.0The [facility] Comment on above:Performed By: #### CBC #### [facility] [address] [place] [address] Dr. Neeta Pfeiffer #4.6 103/ulNormal1.4-6.5The [facility] AndersonComment on above:Performed By: #### CBC #### [facility] [address] [place] [address] Dr. Neeta Ohutrophils/100 WBC (Bld)61.5 %Mhogtf94.0-75.0The [facility] on above:Performed By: #### CBC #### [facility] [address] [place] [address] Dr. Neeta Farfanlet mean volume (Bld) [Entitic vol]8.6 fLCritically low 9.5-13.5The [facility] AndersonCombeaum[facility] on above:Performed By: #### CBC #### [facility] [address] [place] [address] Dr. Neeta NunezPLT278 103/fpVftbkx571-790Jzg [facility] AndersonCom[facility] on above: Performed By: #### CBC #### [facility] [address] [place] [address] Dr. Neeta NunezRBC4.61 106/ulNormal4.20-5.40The [facility] on above:Performed By: #### CBC #### [facility] [address] [place] [address] Dr. Neeta NunezWBC7.4 103/ulNormal4.0-11.0The [facility] on above: Performed By: #### CBC #### [facility] [address] [place] [address] Dr. Neeta CookDIMERon 02-79-4249B-DIMER0.22 mg/L FEUNormal<=0.59The [facility] on above:Performed By: #### DDIM #### [facility] [address] [place] [address] Dr. Neeta Stroud-DIMER COMMENTSSEE [facility] on above:Result Comment: Increases in D-Dimer concentration [...] generalized hospitalization. Performed By: #### DDIM #### [facility] [address] [place] [address] Dr. Neeta Dooley T4on 20-81-3161Ocwv T4 [Mass/Vol]0.94 ng/dLNormal0.76-1.46 The [facility] AndersonComment on above:Performed By: #### FT4 #### [facility] [address] [place] [address] Dr. Neeta NunezPROF CHEM 8 (BAS METB)on 26-65-4379Aniou gap [Moles/Vol]13.2 mmol/LNormalThe [facility] AndersonComment on above:Performed By: #### TSH, BMP #### [facility] [address] [place] [address] Dr. Neeta NunezCalcium [Mass/Vol]9.8 mg/dLNormal8.5-10.1The [facility] Comment on above:Performed By: #### TSH, BMP #### [facility] [address] [place] [address] Dr. Neeta NunezChloride [Moles/Vol]102 mmol/QNunogc62-628LhcThe [facility] Comment on above:Performed By: #### TSH, BMP #### [facility] [address] [place] [address] Dr. Neeta NunezCO2 [Moles/Vol]28.2 mmol/MBzypdx92.0-32.0The [facility] Comment on above:Performed By: #### TSH, BMP #### [facility] [address] [place] [address] Dr. Neeta NunezCreatinine [Mass/Vol]0.88 mg/dLNormal0.55-1.02The [facility] AndersonComment on above:Performed By: #### TSH, BMP #### [facility] [address] [place] [address] Dr. Santacruz ChangEGFR-AF GEORGIAN>60Normal>=60The [facility] - AndersonComment on above:Performed By: #### TSH, BMP #### [facility] [address] [place] [address] [address] Neeta BoudreauxGFR-NON AF GEORGIAN>60Normal>=60The [facility] AndersonComment on above:Performed By: #### TSH, BMP #### [facility] [address] [place] [address] [address] Neeta NunezGlucose [Mass/Vol]103 mg/wSHomuuq70-774Gyp [facility] Comment on above:Performed By: #### TSH, BMP #### [facility] [address] [place] [address] [address] Neeta NunezPotassium [Moles/Vol]3.4 mmol/LCritically low3.5-5.1The [facility] AndersonComment on above:Performed By: #### TSH, BMP #### [facility] [address] [place] [address] [address] Neeta NunezSodium [Moles/Vol]140 mmol/LCxvnvy726-411Znn [facility] Comment on above:Performed By: #### TSH, BMP #### [facility] [address] [place] [address] [address] Neeta NunezUrea nitrogen [Mass/Vol]21.0 mg/dLCritically high7.0-18.0The [facility] AndersonComment on above:Performed By: #### TSH, BMP #### [facility] [address] [place] [address] [address] Neeta English nitrogen/Creatinine [Mass ratio]23.9 mg/mgNormalThe [facility] - AndersonComment on above:Performed By: #### TSH, BMP #### [facility] [address] [place] [address] [address] Neeta Urrutia 33-51-5014MWK8.980 uIU/mLNormal0.358-3.740The [facility] AndersonComment on above:Performed By: #### TSH, BMP #### [facility] [address] [place] [address] [address] Neeta NunezMG MAMM SCREEN 3D KATARINA CADon 97-29-8004IR MAMM SCREEN 3D KATARINA CAD Patient: JULIA QUISPE Exam Date: 05/07/2022 : 1970 Gender:F Ordering : DR LUIS ANGEL ESQUIVEL . Admission #: [id number] Family : Order #: [id number] CLICK HERE TO VIEW EXAM RADIOLOGY REPORT [...] Treatments None Family Cancers None LOCATION: [facility] BREAST COMPOSITION: Heterogeneously dense,which may obscure small [...] by: Seda Urias MD on 05/07/2022 at 09:15NLouis Stokes Cleveland VA Medical CenterXR DEXA BONE DENSITYon [id number] DEXA BONE DENSITYEXAMINATION: XR DEXA BONE DENSITY, [...] Electronically authenticated by: JANIYA HAYES Date: 2022-05-07 07:27Tuscarawas HospitalAbstracton [id number] Julia Quispe 1970 F Date Provider Department Center 02/25/2022 29724-HREPQZQUITA LEEIE [facility] FM Comprehensiv Family History Problem Relation Age of Onset Atrial fibrillation Mother Atrial fibrillation Father Family Status - Relation Status Age at Mother FatherNormalUniversuniversity hospitals [facility] ACOG PANEL 2: 30 to 65on 02-05-2022..NormalThe [facility] AndersonComment on above:Result Comment: Performed at: WBPerformed By: #### [id number] #### [facility] [address] [place] [address] Dr. Neeta Ashby Gdln ACOG Vgltqdd72-34PqytjjXfwTuscarawas HospitalComment on above:Performed By: #### [id number] #### [facility] [address] [place] [address] Dr. Neeta NunezDIAGNOSIS:CommentTuscarawas HospitalComment on above: Result Comment: NEGATIVE FOR INTRAEPITHELIAL LESION OR MALIGNANCY. CELLULAR CHANGES ASSOCIATED WITH ATROPHY ARE PRESENT. Performed at: WBPerformed By: #### [id number] #### [facility] [address] [place] [address] Dr. Neeta NunezHPV AptimaNegativeNormalNegativeThe [facility]Com[facility] hospital on above:Result Comment: This nucleic acid amplification test detects fourteen high-risk HPV types (16,18,31,33,35,39,45,51,52,56,58,59,66,68) without differentiation. Performed at: =GPerformed By: #### [id number] #### [facility] [address] [place] [address] Dr. Neeta NunezMethodology:CommentTuscarawas HospitalComment on above: Result Comment: This liquid based ThinPrep(R) pap test was screened with the use of an image guided system. Performed at: WBPerformed By: #### [id number] #### [facility] [address] [place] [address] Dr. Neeta NunezNote:CommentSelect Medical Specialty Hospital - [facility] on above:Result Comment: The Pap smear is a screening test designed to aid in the detection of premalignant and malignant conditions of the uterine cervix. It is not a diagnostic procedure and should not be used as the sole means of detecting cervical cancer. Both false-positive and false-negative reports do occur. . Performed at: WBPerformed By: #### [id number] #### [facility] [address] [place] [address] Dr. Neeta NunezPerformed by:CommentSelect Medical Specialty Hospital - [place] on above: Result Comment: Priscilla White, Supervisor [employer] (ASCP) Performed at: WBPerformed By: #### [id number] #### [facility] [address] [place] [address] Dr. Neeta NunezSpecimen adequacy:CommentSelect Medical Specialty Hospital - [place]-[facility] on above:Result Comment: Satisfactory for evaluation. Endocervical component may not be distinguished in cases of atrophy. Performed at: WBPerformed By: #### [id number] #### [facility] [address] [place] [address] Dr. Neeta NunezBASHONNA METABOLIC PANELon [id number] [Mass/Vol]9.1 mg/dL Normal8.6-10.3The [facility] HamiltonComment on above:Order Comment: No: Do not add to previous drawPerformed By: #### 65674, 65106, 39994 #### [facility] [address] [place] [address], USAChloride [Moles/Vol]105 mmol/ACtbevr44-054Wcz [facility] HamiltonComment on above:Order Comment: No: Do not add to previous drawPerformed By: #### 11945, 63262, 04152 #### [facility] [address] [place] [address], USACO2 [Moles/Vol]26 mmol/GCzznjb29-41Clw [facility] HamiltonComment on above:Order Comment: No: Do not add to previous draw Performed By: #### 95355, 77484, 19637 #### [facility] [address] [place] [address], USACreatinine [Mass/Vol]0.68 mg/dLNormal0.60-1.20The [facility] HamiltonComment on above:Order Comment: No: Do not add to previous drawPerformed By: #### 21140, 46493, 38349 #### [facility] [address] [place] [address], USAGFR/1.73 sq M.predicted among blacks MDRD (S/P/Bld) [Vol rate/Area]mL/min/{1.73_m2}Normal>60The [facility] Comment on above:Order Comment: No: Do not add to previous drawPerformed By: #### 36208, 95991, 34550 #### [facility] [address] [place] [address], USAGFR/1.73 sq M.predicted among non-blacks MDRD (S/P/Bld) [Vol rate/Area]mL/min/{1.73_m2}Normal>60The [facility] Comment on above:Order Comment: No: Do not add to previous drawPerformed By: #### 83470, 31026, 92450 #### [facility] [address] [place] [address], USAGlucose [Mass/Vol]90 mg/aSSofpxr40-983Hwn [facility] HamiltonComment on above:Order Comment: No: Do not add to previous drawPerformed By: #### 85490, 81201, 19637 #### [facility] [address] [place] [address], USAPotassium [Moles/Vol]4.0 mmol/LNormal3.5-5.1The [facility] HamiltonComment on above:Order Comment: No: Do not add to previous drawPerformed By: #### 09365, 25734, 92658 #### [facility] [address] [place] [address], USASodium [Moles/Vol]137 mmol/YNhsdeu824-482Imw [facility] HamiltonComment on above:Order Comment: No: Do not add to previous drawPerformed By: #### 33247, 69231, 01829 #### [facility] [address] [place] [address], USAUrea nitrogen [Mass/Vol]7 mg/dLNormal7-25The [facility] HamiltonComment on above:Order Comment: No: Do not add to previous drawPerformed By: #### 18227, 58565, 80400 #### [facility] [address] [place] [address], USACBC COMPLETE BLOOD COUNTon 96-32-5939Purkdxjcvpc distribution width (RBC) [Ratio]13.6 %Mbymwo22.5-15.0The [facility] HamiltonComment on above:Order Comment: RLQ PERIHEPATIC FLUID DRAINAGE Performed By: #### 98413 #### [facility] [address] [place] [address], USAHematocrit (Bld) [Volume fraction]29.5 %Low36.0-45.0The [facility] HamiltonComment on above:Order Comment: RLQ PERIHEPATIC FLUID DRAINAGEPerformed By: #### 13583 #### [facility] [address] [place] [place] [address], USAHemoglobin (Bld) [Mass/Vol]8.7 g/dLLow12.0-15.0The [facility] HamiltonComment on above:Order Comment: RLQ PERIHEPATIC FLUID DRAINAGEPerformed By: #### 73488 #### [facility] [address] [place] [address], USAMCH (RBC) [Entitic mass]28.5 lnRcnexb30.0-33.0The [facility] HamiltonComment on above:Order Comment: RLQ PERIHEPATIC FLUID DRAINAGEPerformed By: #### 31068 #### [facility] [address] [place] [address], [facility]ARE FACILITYMCHC (RBC) [Mass/Vol]29.5 g/dLLow32.0-35.0The [facility] HamiltonComment on above:Order Comment: RLQ PERIHEPATIC FLUID DRAINAGEPerformed By: #### 13774 #### [facility] [address] [place] [address], [facility]ARE FACILITYMCV (RBC) [Entitic vol]96.7 jYUdfbdt62.0-98.0The [facility] HamiltonComment on above:Order Comment: RLQ PERIHEPATIC FLUID DRAINAGEPerformed By: #### 14249 #### [facility] [address] [place] [address], USANucleated RBC/100 WBC (Bld) [Ratio]0 %Normal0-0The [facility] HamiltonComment on above:Order Comment: RLQ PERIHEPATIC FLUID DRAINAGEPerformed By: #### 89867 #### [facility] [address] [place] [address], USAPLAT PTR018 10*3/vZBqpe727-432Ied [facility] HamiltonComment on above:Order Comment: RLQ PERIHEPATIC FLUID DRAINAGE Performed By: #### 25180 #### [facility] [address] [place] [address], USARBC (Bld) [#/Vol]3.05 10*6/uLLow3.80-5.00The [facility] HamiltonComment on above:Order Comment: RLQ PERIHEPATIC FLUID DRAINAGEPerformed By: #### 14106 #### [facility] [address] [place] [address], USAWBC (Bld) [#/Vol]4.76 10*3/uLNormal4.00-10.60The [facility] HamiltonComment on above:Order Comment: RLQ PERIHEPATIC FLUID DRAINAGEPerformed By: #### 67125 #### [facility] [address] [place] [address], USAAPTTon 66-52-1732aKIP Coag (Bld) [Time]32.4 sNormal 25.0-35.0The [facility] HamiltonComment on above:Order Comment: No: Do not add [...] BE USED FOR THIS PURPOSE.Performed By: #### 39542, 06287, 27019 #### [facility] [address] [place] [address], USABASIC METABOLIC PANELon 64-52-6367Jbboukb [Mass/Vol]8.9 mg/dLNormal8.6-10.3The [facility] HamiltonComment on above:Order Comment: No: Do not add to previous drawPerformed By: #### 52492, 40075, 46509 #### [facility] [address] [facility] [place] [address], USAChloride [Moles/Vol]105 mmol/ASzapjc77-397Aen [facility] HamiltonComment on above:Order Comment: No: Do not add to previous drawPerformed By: #### 62699, 52516, 43657 #### [facility] [address] [facility] [place] [address], USACO2 [Moles/Vol]25 mmol/MQgrebv85-08Kel [facility] HamiltonComment on above:Order Comment: No: Do not add to previous draw Performed By: #### 04019, 04059, 25084 #### [facility] [address] [place] [address], USACreatinine [Mass/Vol]0.72 mg/dLNormal0.60-1.20The [facility] HamiltonComment on above:Order Comment: No: Do not add to previous drawPerformed By: #### 64138, 14612, 25158 #### [facility] [address] [place] [address], USAGFR/1.73 sq M.predicted among blacks MDRD (S/P/Bld) [Vol rate/Area]mL/min/{1.73_m2}Normal>60The [facility] Comment on above:Order Comment: No: Do not add to previous drawPerformed By: #### 73843, 04389, 81229 #### [facility] [address] [place] [address], USAGFR/1.73 sq M.predicted among non-blacks MDRD (S/P/Bld) [Vol rate/Area]mL/min/{1.73_m2}Normal>60The [facility] Comment on above:Order Comment: No: Do not add to previous drawPerformed By: #### 38547, 12663, 78164 #### [facility] [address] [place] [address], USAGlucose [Mass/Vol]95 mg/zSUgkecj36-506Elv [facility] HamiltonComment on above:Order Comment: No: Do not add to previous drawPerformed By: #### 04785, 68040, 24597 #### [facility] [address] [place] [address], USAPotassium [Moles/Vol]3.9 mmol/LNormal3.5-5.1The [facility] HamiltonComment on above:Order Comment: No: Do not add to previous drawPerformed By: #### 03147, 00504, 16116 #### [facility] [address] [place] [address], USASodium [Moles/Vol]137 mmol/FQvpfiv196-832Fly [facility] HamiltonComment on above:Order Comment: No: Do not add to previous drawPerformed By: #### 75301, 05276, 00400 #### [facility] [address] [place] [address], USAUrea nitrogen [Mass/Vol]8 mg/dLNormal7-25The [facility] HamiltonComment on above:Order Comment: No: Do not add to previous drawPerformed By: #### 61464, 13551, 79188 #### [facility] [address] [place] [address], USACBC COMPLETE BLOOD COUNTon 90-84-8615Pvqnkflqnip distribution width (RBC) [Ratio]13.6 %Yjnujl94.5-15.0The [facility] HamiltonComment on above:Order Comment: RLQ PERIHEPATIC FLUID DRAINAGE Performed By: #### 55802 #### [facility] [address] [place] [address], USAHematocrit (Bld) [Volume fraction]29.6 %Low36.0-45.0The [facility] HamiltonComment on above:Order Comment: RLQ PERIHEPATIC FLUID DRAINAGEPerformed By: #### 36411 #### [facility] [address] [place] [address], USAHemoglobin (Bld) [Mass/Vol]9.2 g/dLLow12.0-15.0The [facility] HamiltonComment on above:Order Comment: RLQ PERIHEPATIC FLUID DRAINAGEPerformed By: #### 82483 #### [facility] [address] [place] [address], [facility]ARE FACILITYMCH (RBC) [Entitic mass]29.6 euQuixvy63.0-33.0The [facility] HamiltonComment on above:Order Comment: RLQ PERIHEPATIC FLUID DRAINAGEPerformed By: #### 01026 #### [facility] [address] [place] [address], USAMCHC (RBC) [Mass/Vol]31.1 g/dLLow32.0-35.0The [facility] HamiltonComment on above:Order Comment: RLQ PERIHEPATIC FLUID DRAINAGEPerformed By: #### 42022 #### [facility] [address] [place] [address], USAMCV (RBC) [Entitic vol]95.2 oOJyjpiu10.0-98.0The [facility] HamiltonComment on above:Order Comment: RLQ PERIHEPATIC FLUID DRAINAGEPerformed By: #### 11160 #### [facility] [address] [place] [address], USANucleated RBC/100 WBC (Bld) [Ratio]0 %Normal0-0The [facility] HamiltonComment on above:Order Comment: RLQ PERIHEPATIC FLUID DRAINAGEPerformed By: #### 51221 #### [facility] [address] [place] [address], USAPLAT JYG261 10*3/rKRmpe342-872Ngj [facility] HamiltonComment on above:Order Comment: RLQ PERIHEPATIC FLUID DRAINAGE Performed By: #### 40936 #### [facility] [address] [place] [address], USARBC (Bld) [#/Vol]3.11 10*6/uLLow3.80-5.00The [facility] HamiltonComment on above:Order Comment: RLQ PERIHEPATIC FLUID DRAINAGEPerformed By: #### 23895 #### [facility] [address] [place] [address], USAWBC (Bld) [#/Vol]6.78 10*3/uLNormal4.00-10.60The [facility] HamiltonComment on above:Order Comment: RLQ PERIHEPATIC FLUID DRAINAGEPerformed By: #### 20532 #### [facility] [address] [place] [address], USALIVER BATTERYon 83-21-1761Vxzzsce [Mass/Vol]3.3 g/dLLow 3.5-5.7The [facility] HamiltonComment on above:Order Comment: No: Do not add to previous drawPerformed By: #### 73342, 49811, 23200 #### [facility] [address] [place] [address], USAALKALINE MTLXRP278 IU/AMrmu63-317Suh [facility] HamiltonComment on above:Order Comment: No: Do not add to previous draw Performed By: #### 73901, 91105, 61488 #### [facility] [address] [place] [address], USAALT [Catalytic activity/Vol]50 U/LNormal7-52The [facility] HamiltonComment on above:Order Comment: No: Do not add to previous drawPerformed By: #### 20973, 86344, 91664 #### [facility] [address] [place] [address], USAAST [Catalytic activity/Vol]11 U/BYfy07-45Vzd [facility] HamiltonComment on above:Order Comment: No: Do not add to previous drawPerformed By: #### 19593, 83358, 10340 #### [facility] [address] [place] [address], USABilirubin [Mass/Vol]0.8 mg/dLNormal0.3-1.0The [facility] HamiltonComment on above:Order Comment: No: Do not add to previous drawPerformed By: #### 19552, 33249, 27696 #### [facility] [address] [place] [address], USABilirubin.direct [Mass/Vol]0.2 mg/dLNormal0.0-0.2The [facility] HamiltonComment on above:Order Comment: No: Do not add to previous drawPerformed By: #### 14274, 27340, 48578 #### [facility] [address] [place] [address], USAProtein [Mass/Vol]6.3 g/dLNormal6.0-8.3The [facility] HamiltonComment on above:Order Comment: No: Do not add to previous drawPerformed By: #### 65103, 64116, 76134 #### [facility] [address] [place] [address], USAMAGNESIUM BLOODon 58-83-2224Mdaxmmvpn [Mass/Vol]2.0 mg/dL Normal1.9-2.7The [facility] HamiltonComment on above:Order Comment: No: Do not add to previous drawPerformed By: #### 39469, 33293, 31430 #### [facility] [address] [place] [address], USAPHOSPHORUS BLOODon 84-83-5105Zcevhrlbb [Mass/Vol]4.2 mg/dL Normal2.5-5.0The [facility] HamiltonComment on above:Order Comment: No: Do not add to previous drawPerformed By: #### 22152, 88301, 85782 #### [facility] [address] [facility] [place] [address], USAPROTHROMBIN TIMEon 23-43-6218POI Coag (PPP) [Relative time] 1.12 {INR}Normal0.91-1.16The [facility] HamiltonComment on above:Order Comment: No: Do not add [...] OPTIMAL THERAPEUTIC RANGE. CHEST 1995;108:231S-246S.Performed By: #### 08372, 66925, 33225 #### [facility] [address] [facility] [address], [facility] CARE FACILITYPT Coag (PPP) [Time]14.4 iRroahz45.3-14.8The [facility] HamiltonComment on above:Order Comment: No: Do not add to previous drawResult Comment: ALL RESULTS MUST BE INTERPRETED WITH RESPECT TO BLOOD DRAWING ARTIFACT OR DILUTION ERROR OF ANTICOAGULANT AT THE TIME OF SAMPLING.Performed By: #### 86726, 47539, 99604 #### [facility] [address]*ABSCESS CULTUREon 11-05-2021*ABSCESS CULTUREClinical Report: (D) Specimen: ABSCESS Collected: 11/05/2021 13:06 Status: Final Last Updated: 11/08/2021 07:07 (1) RLQ PERIHEPATIC FLUID DRAINAGE GRAM (Final) Many Polys No Bacteria Seen ISO (Final) Escherichia coli Heavy Growth ISOLATE: Escherichia coli MILLICENT (mcg/ml) AMP./SULBAC (AMS) 8/4 Susceptible AMPICILLIN (AM) <=4 Susceptible AZTREONAM (AZM) <=2 Susceptible CEFAZOLIN (CZ) 4 Susceptible CEFTRIAXONE (RN DIABETES EDUCATOR) <=1 Susceptible CIPROFLOXACIN (CIP) <=0.25 Susceptible ESBL (-/+) (ESBL) Negative GENTAMICIN (GM) <=2 Susceptible PIP/TAZO (TZP) <=2/4 Susceptible TOBRAMYCIN (TOB) <=2 Susceptible TRIMETH/SULFA (SXT) <=0.5/9.5 SusceptibleNoalThRegency Hospital ToledoComment on above:Order Comment: RLQ PERIHEPATIC FLUID DRAINAGEPerformed By: #### 67420 #### [facility] [address]*ANAEROBIC CULTUREon 11-05-2021*ANAEROBIC CULTUREClinical Report: (D) Specimen: DRAINAGE Collected: 11/05/2021 13:06 Status: Final Last Updated: 11/10/2021 09:47 (1) RLQ PERIHEPATIC FLUID DRAINAGE ISO (Final) Bacteroides fragilis Beta-Lactamase Positive ISO (Final) Eubacterium species Result changed by [email or web address] on 11/10/2021 09:47. The previous result was: ISO (Prelim) NormalThe [facility] HamiltonComment on above:Order Comment: RLQ PERIHEPATIC FLUID DRAINAGEPerformed By: #### 66029 #### [facility] [address] [facility] [place] [address], USAAPTTon 47-60-1278jWOA Coag (Bld) [Time]28.6 sNormal 25.0-35.0The [facility] HamiltonComment on above:Order Comment: No: Do not add [...] BE USED FOR THIS PURPOSE.Performed By: #### 65079, 74691, 00496 #### [facility] [address] [facility] [place] [address], USABASIC METABOLIC PANELon 68-97-6405Jntinse [Mass/Vol]8.3 mg/dLLow8.6-10.3The [facility] HamiltonComment on above:Order Comment: No: Do not add to previous drawPerformed By: #### 36864, 95855, 03948 #### [facility] [address] [facility] [place] [address], USAChloride [Moles/Vol]108 mmol/ZAans64-773Kvk [facility] HamiltonComment on above:Order Comment: No: Do not add to previous drawPerformed By: #### 93888, 74052, 84833 #### [facility] [address] [place] [address], USACO2 [Moles/Vol]23 mmol/BDmuwgl68-62Zon [facility] HamiltonComment on above:Order Comment: No: Do not add to previous draw Performed By: #### 97232, 36460, 49853 #### [facility] [address] [place] [address], USACreatinine [Mass/Vol]0.48 mg/dLLow0.60-1.20The [facility] HamiltonComment on above:Order Comment: No: Do not add to previous drawPerformed By: #### 15813, 76241, 29240 #### [facility] [address] [place] [address], USAGFR/1.73 sq M.predicted among blacks MDRD (S/P/Bld) [Vol rate/Area]mL/min/{1.73_m2}Normal>60The [facility] Comment on above:Order Comment: No: Do not add to previous drawPerformed By: #### 21092, 73105, 16798 #### [facility] [address] [place] [address], USAGFR/1.73 sq M.predicted among non-blacks MDRD (S/P/Bld) [Vol rate/Area]mL/min/{1.73_m2}Normal>60The [facility] Comment on above:Order Comment: No: Do not add to previous drawPerformed By: #### 78087, 04071, 84122 #### [facility] [address] [place] [address], USAGlucose [Mass/Vol]94 mg/gSDzecer81-063Ayk [facility] HamiltonComment on above:Order Comment: No: Do not add to previous drawPerformed By: #### 03364, 93987, 10286 #### [facility] [address] [place] [address], USAPotassium [Moles/Vol]3.9 mmol/LNormal3.5-5.1The [facility] HamiltonComment on above:Order Comment: No: Do not add to previous drawPerformed By: #### 30337, 35114, 78927 #### [facility] [address] [place] [address], USASodium [Moles/Vol]138 mmol/HQiukrt978-214Xaq [facility] HamiltonComment on above:Order Comment: No: Do not add to previous drawPerformed By: #### 52748, 22602, 37780 #### [facility] [address] [facility] [place] [address], USAUrea nitrogen [Mass/Vol]9 mg/dLNormal7-25The [facility] HamiltonComment on above:Order Comment: No: Do not add to previous drawPerformed By: #### 37259, 22381, 41563 #### [facility] [address] [facility] [address], USACBC W/DIFFon 77-28-1547IAZ IMM GRANS0.0 10*3/uLNormal 0.0-0.2The [facility] HamiltonComment on above:Order Comment: RLQ PERIHEPATIC FLUID DRAINAGEPerformed By: #### 55334 #### [facility] [address] [facility] [place] [address], USAABS NEUTROPHILS4.5 10*3/uLNormal1.6-7.6The [facility] HamiltonComment on above:Order Comment: RLQ PERIHEPATIC FLUID DRAINAGEPerformed By: #### 52217 #### [facility] [address] [facility] [address], USABasophils (Bld) [#/Vol]0.0 10*3/uLNormal0.0-0.2The [facility] HamiltonComment on above:Order Comment: RLQ PERIHEPATIC FLUID DRAINAGEPerformed By: #### 65069 #### [facility] [address] [place] [place] [address], USABasophils/100 WBC (Bld)0.3 %Normal0.0-1.0The [facility] HamiltonComment on above:Order Comment: RLQ PERIHEPATIC FLUID DRAINAGEPerformed By: #### 72036 #### [facility] [address] [place] [address], USAEosinophils (Bld) [#/Vol]0.1 10*3/uLNormal0.0-0.5The [facility] HamiltonComment on above:Order Comment: RLQ PERIHEPATIC FLUID DRAINAGEPerformed By: #### 45258 #### [facility] [address] [place] [address], USAEosinophils/100 WBC (Bld)1.4 %Normal0.0-6.0The [facility] HamiltonComment on above:Order Comment: RLQ PERIHEPATIC FLUID DRAINAGEPerformed By: #### 91822 #### [facility] [address] [place] [address], USAErythrocyte distribution width (RBC) [Ratio]14.0 %Normal 11.5-15.0The [facility] HamiltonComment on above:Order Comment: RLQ PERIHEPATIC FLUID DRAINAGEPerformed By: #### 83966 #### [facility] [address] [place] [address], USAHematocrit (Bld) [Volume fraction]27.2 %Low36.0-45.0The [facility] HamiltonComment on above:Order Comment: RLQ PERIHEPATIC FLUID DRAINAGEPerformed By: #### 87572 #### [facility] [address] [place] [address], USAHemoglobin (Bld) [Mass/Vol]8.5 g/dLLow12.0-15.0The [facility] HamiltonComment on above:Order Comment: RLQ PERIHEPATIC FLUID DRAINAGEPerformed By: #### [id number] #### [facility] [address] [place] [address], USAIMMATURE GRANS0.5 %Normal0.0-1.0The [facility] HamiltonComment on above:Order Comment: RLQ PERIHEPATIC FLUID DRAINAGE Performed By: #### [id number] #### [facility] [address] [place] [address], USALymphocytes (Bld) [#/Vol]1.3 10*3/uLNormal1.2-4.0The [facility] HamiltonComment on above:Order Comment: RLQ PERIHEPATIC FLUID DRAINAGEPerformed By: #### [id number] #### [facility] [address] [place] [address], [facility]ARE FACILITYLymphocytes/100 WBC (Bld)20.5 %Tpxqqj52.0-45.0The [facility] HamiltonComment on above:Order Comment: RLQ PERIHEPATIC FLUID DRAINAGEPerformed By: #### 45149 #### [facility] [address] [place] [address], [facility] (RBC) [Entitic mass]29.7 vqJfxcxh94.0-33.0The [facility] HamiltonComment on above:Order Comment: RLQ PERIHEPATIC FLUID DRAINAGEPerformed By: #### 83641 #### [facility] [address] [place] [address], [facility] (RBC) [Mass/Vol]31.3 g/dLLow32.0-35.0The [facility] HamiltonComment on above:Order Comment: RLQ PERIHEPATIC FLUID DRAINAGEPerformed By: #### 63931 #### [facility] [address] [place] [address], [facility] (RBC) [Entitic vol]95.1 nGIjizkx61.0-98.0The [facility] HamiltonComment on above:Order Comment: RLQ PERIHEPATIC FLUID DRAINAGEPerformed By: #### 42161 #### [facility] [address] [place] [address], USAMonocytes (Bld) [#/Vol]0.5 10*3/uLNormal0.1-1.0The [facility] HamiltonComment on above:Order Comment: RLQ PERIHEPATIC FLUID DRAINAGEPerformed By: #### 25192 #### [facility] [address] [place] [address], USAMONOS7.3 %Normal5.0-12.0The [facility] HamiltonComment on above:Order Comment: RLQ PERIHEPATIC FLUID DRAINAGEPerformed By: #### 45181 #### [facility] [address] [place] [address], USANeutrophils/100 WBC (Bld)70.0 %Tsipac15.0-72.0The [facility] HamiltonComment on above:Order Comment: RLQ PERIHEPATIC FLUID DRAINAGEPerformed By: #### 88122 #### [facility] [address] [place] [address], USANucleated RBC/100 WBC (Bld) [Ratio]0 %Normal0-0The [facility] HamiltonComment on above:Order Comment: RLQ PERIHEPATIC FLUID DRAINAGEPerformed By: #### 95727 #### [facility] [address] [place] [address], USAPLAT KTP891 10*3/mXUvzm224-537Sji [facility] HamiltonComment on above:Order Comment: RLQ PERIHEPATIC FLUID DRAINAGE Performed By: #### 16554 #### [facility] [address] [place] [address], USARBC (Bld) [#/Vol]2.86 10*6/uLLow3.80-5.00The [facility] HamiltonComment on above:Order Comment: RLQ PERIHEPATIC FLUID DRAINAGEPerformed By: #### 60332 #### [facility] [address] [place] [address], USAWBC (Bld) [#/Vol]6.44 10*3/uLNormal4.00-10.60The [facility] HamiltonComment on above:Order Comment: RLQ PERIHEPATIC FLUID DRAINAGEPerformed By: #### 98359 #### [address] [address], USACT DRAINAGE PERITONEALon 56-14-1575FG DRAINAGE PERITONEAL [facility] Department of Radiology [address] [place] [id number] Patient Name: JULIA QUISPE : 1970 Sex: F Age: Race: White Pt. Location: [id number] Patient Status: I Ordered Date: 11/05/2021 6:55:00 [...] risks are acceptable. Consent was obtained. Timeout: [place] protocol timeout verification performed. MEDICATIONS: 2 mg [...] this time and was unsuccessful. A 10 Gambian pigtail catheter was then placed and placement [...] report. Electronically signed: Caroline Escamilla. Transcribed by: [id number], User Resident: FLIP PUENTES Electronically Signed by: CAROLINE ESCAMILLA @ 11/05/2021 01:45 PM I personally read this/these film(s) with this Memorial HospitalComment on above:Order Comment: Other, liver abscess posterior segment right lobeMAGNESIUM BLOODon 43-08-6105Mqukcwffi [Mass/Vol]2.0 mg/dLNormal1.9-2.7The [facility] HamiltonComment on above:Order Comment: No: Do not add to previous drawPerformed By: #### 69354, 61894, 08117 #### [facility] [address] [place] [address], USAPHOSPHORUS BLOODon 71-61-3409Njkbnioyq [Mass/Vol]3.7 mg/dL Normal2.5-5.0The [facility] HamiltonComment on above:Order Comment: No: Do not add to previous drawPerformed By: #### 35734, 28158, 84293 #### [facility] [address] [facility] [place] [address], USAPOC SARS COV2 ANTIGEN NEGATIVEon 56-75-6609QKI SARS COV2 ANTIGEN NEGNegativeNormalNEGATIVEThe [facility] HamiltonComment on above:Result Comment: Negative results should be [...] antigen from SARS-CoV-2 in direct nasopharyngeal swab (MAINTENANCE TECHNICIAN 2ND SHIFT) specimens from individuals who are suspected of [...] Compliance, or Certificate of Accreditation.Performed By: #### 65362 #### [facility] [address] [facility] [address], USAPROTHROMBIN TIMEon 65-69-8642DFO Coag (PPP) [Relative time] 1.14 {INR}Normal0.91-1.16The [facility] HamiltonComment on above:Order Comment: No: Do not add to previous drawResult Comment: [facility] RECOMMENDED INR FOR WARFARIN THERAPY ------- CONDITION [...] OPTIMAL THERAPEUTIC RANGE. CHEST 1995;108:231S-246S.Performed By: #### 41486, 25941, 43400 #### [facility] [address] [facility] [address], USAPT Coag (PPP) [Time]14.6 iPkyzav01.3-14.8The [facility] HamiltonComment on above:Order Comment: No: Do not add to previous drawResult Comment: ALL RESULTS MUST BE INTERPRETED WITH RESPECT TO BLOOD DRAWING ARTIFACT OR DILUTION ERROR OF ANTICOAGULANT AT THE TIME OF SAMPLING.Performed By: #### 14355, 41571, 46832 #### [facility] [address] [facility] [address], USAUS GALLBLADDERon 36-81-6499UM GALLBLADDERUnSt. Mary's Medical Center Department of Radiology [address] [place] [id number] Patient Name: JULIA QUISPE : 1970 Sex: F Age: Race: White Pt. Location: [id number] Patient Status: I Ordered Date: 11/05/2021 11:20:00 [...] sludge. Electronically signed: Vincent Velasquez. Transcribed by: [email or web address], User Resident: Electronically Signed by: VINCENT VELASQUEZ @ 11/05/2021 02:10 PMNormalThe [facility] HamiltonComment on above:Order Comment: Enlargement CBC W/DIFFon 98-82-9764QLV IMM GRANS0.0 10*3/uLNormal0.0-0.2The [facility] HamiltonComment on above:Performed By: #### 84095 #### [facility] [address] [address], USAABS NEUTROPHILS6.0 10*3/uLNormal1.6-7.6The [facility] HamiltonComment on above:Performed By: #### 32237 #### [facility] [address] [address], USABasophils (Bld) [#/Vol]0.0 10*3/uLNormal0.0-0.2The [facility] HamiltonComment on above:Performed By: #### 55030 #### [facility] [address] [facility] [place] [address], USABasophils/100 WBC (Bld)0.4 %Normal0.0-1.0The [facility] HamiltonComment on above:Performed By: #### 00819 #### [facility] [address] [facility] [place] [address], USAEosinophils (Bld) [#/Vol]0.1 10*3/uLNormal0.0-0.5The [facility] HamiltonComment on above:Performed By: #### 11465 #### [facility] [address] [facility] [place] [address], USAEosinophils/100 WBC (Bld)1.2 %Normal0.0-6.0The [facility] HamiltonComment on above:Performed By: #### 88758 #### [facility] [address] [facility] [address], USAErythrocyte distribution width (RBC) [Ratio]13.9 %Normal 11.5-15.0The [facility] HamiltonComment on above:Performed By: #### 70711 #### [facility] [address] [facility] [address], USAHematocrit (Bld) [Volume fraction]30.8 %Low36.0-45.0The [facility] HamiltonComment on above:Performed By: #### 24615 #### [facility] [address] [place] [address], USAHemoglobin (Bld) [Mass/Vol]9.8 g/dLLow12.0-15.0The [facility] HamiltonComment on above:Performed By: #### 10251 #### [facility] [address] [place] [address], USAIMMATURE GRANS0.4 %Normal0.0-1.0The [facility] HamiltonComment on above:Performed By: #### 43940 #### [facility] [address] [place] [address], [facility] FACILITYLymphocytes (Bld) [#/Vol]1.7 10*3/uLNormal1.2-4.0The [facility] HamiltonComment on above:Performed By: #### 22037 #### [facility] [address] [place] [address], [facility] FACILITYLymphocytes/100 WBC (Bld)20.3 %Yuniub35.0-45.0The [facility] HamiltonComment on above:Performed By: #### 68693 #### [facility] [address] [place] [address], [facility] (RBC) [Entitic mass]30.1 svYhkyqd95.0-33.0The [facility] HamiltonComment on above:Performed By: #### 24277 #### [facility] [address] [facility] [address], [facility] FACILITYMCHC (RBC) [Mass/Vol]31.8 g/dLLow32.0-35.0The [facility] HamiltonComment on above:Performed By: #### 79643 #### [facility] [address] [address], [facility] FACILITYMCV (RBC) [Entitic vol]94.5 fRTbcnmp62.0-98.0The [facility] HamiltonComment on above:Performed By: #### 28259 #### [facility] [address] [place] [address], USAMonocytes (Bld) [#/Vol]0.6 10*3/uLNormal0.1-1.0The [facility] HamiltonComment on above:Performed By: #### 39701 #### [facility] [address] [place] [address], USAMONOS6.6 %Normal5.0-12.0The [facility] HamiltonComment on above:Performed By: #### 25987 #### [facility] [address] [place] [address], USANeutrophils/100 WBC (Bld)71.1 %Fhwiil90.0-72.0The [facility] HamiltonComment on above:Performed By: #### 53174 #### [facility] [address] [place] [address], USANucleated RBC/100 WBC (Bld) [Ratio]0 %Normal0-0The [facility] HamiltonComment on above:Performed By: #### 14632 #### [facility] [address] [place] [address], USAPLAT KGC600 10*3/wCXppc452-608Uqs [facility] HamiltonComment on above:Performed By: #### 67415 #### [facility] [address] [place] [address], USARBC (Bld) [#/Vol]3.26 10*6/uLLow3.80-5.00The [facility] HamiltonComment on above:Performed By: #### 25542 #### [facility] [address] [place] [address], USAWBC (Bld) [#/Vol]8.43 10*3/uLNormal4.00-10.60The [facility] HamiltonComment on above:Performed By: #### 30234 #### [facility] [address] [place] [address], USACOMP METABOLIC PANELon 73-62-8729Vhteonu [Mass/Vol]3.7 g/dL Normal3.5-5.7The [facility] HamiltonComment on above:Performed By: #### 66803, 03863, 22783 #### [facility] [address] [place] [address], USAALKALINE YBMFRX104 IU/PIwci00-446Eht [facility] HamiltonComment on above:Performed By: #### 48457, 49586, 44679 #### [facility] [address] [place] [address], USAALT [Catalytic activity/Vol]99 U/LHigh7-52The [facility] HamiltonComment on above:Performed By: #### 58127, 78839, 00869 #### [facility] [address] [place] [address], USAAST [Catalytic activity/Vol]38 U/QDjkigb36-76Tlp [facility] HamiltonComment on above:Performed By: #### 91624, 32278, 82389 #### [facility] [address] [place] [address], USABilirubin [Mass/Vol]0.7 mg/dLNormal0.3-1.0The [facility] HamiltonComment on above:Performed By: #### 72594, 06991, 76235 #### [facility] [address] [place] [address], USACalcium [Mass/Vol]9.2 mg/dLNormal8.6-10.3The [facility] HamiltonComment on above:Performed By: #### 34441, 95894, 63355 #### [facility] [address] [place] [address], USAChloride [Moles/Vol]103 mmol/IRlxfsy10-176Yjl [facility] HamiltonComment on above:Performed By: #### 83320, 40951, 09969 #### [facility] [address] [place] [address], USACO2 [Moles/Vol]27 mmol/OBymwot87-87Mhm [facility] HamiltonComment on above:Performed By: #### 22685, 79331, 76702 #### [facility] [address] [place] [address], USACreatinine [Mass/Vol]0.60 mg/dLNormal0.60-1.20The [facility] HamiltonComment on above:Performed By: #### 44695, 86247, 55343 #### [facility] [address] [place] [address], USAGFR/1.73 sq M.predicted among blacks MDRD (S/P/Bld) [Vol rate/Area]mL/min/{1.73_m2}Normal>60The [facility] Comment on above:Performed By: #### 85451, 75014, 84774 #### [facility] [address] [place] [address], USAGFR/1.73 sq M.predicted among non-blacks MDRD (S/P/Bld) [Vol rate/Area]mL/min/{1.73_m2}Normal>60The [facility] Comment on above:Performed By: #### 37950, 55634, 63450 #### [facility] [address] [place] [address], USAGlucose [Mass/Vol]93 mg/sAFtzehr56-651Uwu [facility] HamiltonComment on above:Performed By: #### 96209, 86305, 84659 #### [facility] [address] [place] [address], USAPotassium [Moles/Vol]4.2 mmol/LNormal3.5-5.1The [facility] HamiltonComment on above:Performed By: #### 07095, 71191, 76691 #### [facility] [address] [facility] [place] [address], USAProtein [Mass/Vol]6.6 g/dLNormal6.0-8.3The [facility] HamiltonComment on above:Performed By: #### 63132, 38406, 79287 #### [facility] [address] [facility] [address], USASodium [Moles/Vol]139 mmol/HCdjzoo023-666Pru [facility] HamiltonComment on above:Performed By: #### 89886, 81058, 47830 #### [facility] [address] [facility] [address], USAUrea nitrogen [Mass/Vol]12 mg/dLNormal7-25The [facility] HamiltonComment on above:Performed By: #### 13074, 79026, 09385 #### [facility] [address] [facility] [address], USACT ABDOMEN AND PELVIS W IV CONTRASTon 41-36-2235OK ABDOMEN AND PELVIS W IV CONTRASTUnSt. Mary's Medical Center Department of Radiology [address] [place] [phone] Patient Name: JULIA QUISPE : 1970 [...] achievable. Electronically signed: Deacon Saenz. Transcribed by: [email or web address], User Resident: Electronically Signed by: DEACON SAENZ @ 11/04/2021 06:21 PMNSt. Charles HospitalComment on above:Order Comment: Retroperitoneal Mass/Abscess, post-appendectomy with MICHEAL drainLACTATE WITH REFLEX on 83-89-0746Sqpbgoq [Moles/Vol]1.3 mmol/LNormal.5-2.2The [facility] HamiltonComment on above:Performed By: #### 00740, 14942, 35613 #### [facility] [address] [place] [address], USALIPASE BLOODon 96-91-2203FPHSVQ556 Units/NWvmh87-01Qvk [facility] HamiltonComment on above:Performed By: #### 26348, 88639, 58441 #### [facility] [address] [place] [address], USABASIC METABOLIC PANELon 82-58-1029Wtwvsea [Mass/Vol]8.6 mg/dLNormal8.6-10.3The [facility] HamiltonComment on above:Order Comment: No: Do not add to previous drawPerformed By: #### 34824, 66211, 03644 #### [facility] [address] [place] [address], USAChloride [Moles/Vol]103 mmol/ERoutjg06-184Owk [facility] HamiltonComment on above:Order Comment: No: Do not add to previous drawPerformed By: #### 00531, 54607, 48461 #### [facility] [address] [place] [address], USACO2 [Moles/Vol]28 mmol/QKefsah80-43Jrm [facility] HamiltonComment on above:Order Comment: No: Do not add to previous draw Performed By: #### 07018, 53909, 31581 #### [facility] [address] [place] [address], USACreatinine [Mass/Vol]0.61 mg/dLNormal0.60-1.20The [facility] HamiltonComment on above:Order Comment: No: Do not add to previous drawPerformed By: #### 39709, 04211, 93896 #### [facility] [address] [place] [address], USAGFR/1.73 sq M.predicted among blacks MDRD (S/P/Bld) [Vol rate/Area]mL/min/{1.73_m2}Normal>60The [facility] Comment on above:Order Comment: No: Do not add to previous drawPerformed By: #### 28588, 82708, 86662 #### [facility] [address] [place] [address], USAGFR/1.73 sq M.predicted among non-blacks MDRD (S/P/Bld) [Vol rate/Area]mL/min/{1.73_m2}Normal>60The [facility] Comment on above:Order Comment: No: Do not add to previous drawPerformed By: #### 24074, 10587, 89723 #### [facility] [address] [place] [address], USAGlucose [Mass/Vol]101 mg/gRFpyn04-455Smh [facility] HamiltonComment on above:Order Comment: No: Do not add to previous drawPerformed By: #### 80814, 55680, 35017 #### [facility] [address] [place] [address], USAPotassium [Moles/Vol]4.0 mmol/LNormal3.5-5.1The [facility] HamiltonComment on above:Order Comment: No: Do not add to previous drawPerformed By: #### 44361, 20439, 57233 #### [facility] [address] [place] [address], USASodium [Moles/Vol]136 mmol/UTehbdy721-712Gmn [facility] HamiltonComment on above:Order Comment: No: Do not add to previous drawPerformed By: #### 77722, 86208, 22293 #### [facility] [address] [place] [address], USAUrea nitrogen [Mass/Vol]11 mg/dLNormal7-25The [facility] HamiltonComment on above:Order Comment: No: Do not add to previous drawPerformed By: #### 10718, 78247, 45577 #### [facility] [address] [place] [address], USACBC COMPLETE BLOOD COUNTon 51-56-6375Hahofapmyhn distribution width (RBC) [Ratio]14.7 %Czgcmc67.5-15.0The [facility] HamiltonComment on above:Order Comment: RLQ PERIHEPATIC FLUID DRAINAGE Performed By: #### 04898 #### [facility] [address] [facility] [address], [facility] FACILITYHematocrit (Bld) [Volume fraction]25.3 %Low36.0-45.0The [facility] HamiltonComment on above:Order Comment: RLQ PERIHEPATIC FLUID DRAINAGEPerformed By: #### 52084 #### [facility] [address] [facility] [address], USAHemoglobin (Bld) [Mass/Vol]8.0 g/dLLow12.0-15.0The [facility] HamiltonComment on above:Order Comment: RLQ PERIHEPATIC FLUID DRAINAGEPerformed By: #### 91246 #### [facility] [address] [facility] [place] [address], [facility] (RBC) [Entitic mass]30.2 fnHfosdh42.0-33.0The [facility] HamiltonComment on above:Order Comment: RLQ PERIHEPATIC FLUID DRAINAGEPerformed By: #### 15594 #### [facility] [address] [facility] [address], [facility] FACILITYMCHC (RBC) [Mass/Vol]31.6 g/dLLow32.0-35.0The [facility] HamiltonComment on above:Order Comment: RLQ PERIHEPATIC FLUID DRAINAGEPerformed By: #### 05182 #### [facility] [address] [place] [address], USAMCV (RBC) [Entitic vol]95.5 sMOstxgh68.0-98.0The [facility] HamiltonComment on above:Order Comment: RLQ PERIHEPATIC FLUID DRAINAGEPerformed By: #### 57486 #### [facility] [address] [place] [address], USANucleated RBC/100 WBC (Bld) [Ratio]0 %Normal0-0The [facility] HamiltonComment on above:Order Comment: RLQ PERIHEPATIC FLUID DRAINAGEPerformed By: #### 74264 #### [facility] [address] [place] [address], USAPLAT UMR769 10*3/gANknl985-960Joz [facility] HamiltonComment on above:Order Comment: RLQ PERIHEPATIC FLUID DRAINAGE Performed By: #### 72510 #### [facility] [address] [place] [address], USARBC (Bld) [#/Vol]2.65 10*6/uLLow3.80-5.00The [facility] HamiltonComment on above:Order Comment: RLQ PERIHEPATIC FLUID DRAINAGEPerformed By: #### 24316 #### [facility] [address] [place] [address], USAWBC (Bld) [#/Vol]8.36 10*3/uLNormal4.00-10.60The [facility] HamiltonComment on above:Order Comment: RLQ PERIHEPATIC FLUID DRAINAGEPerformed By: #### 59966 #### [facility] [address] [place] [address], USAMAGNESIUM BLOODon 06-34-9462Tbrnmioqy [Mass/Vol]2.0 mg/dL Normal1.9-2.7The [facility] HamiltonComment on above:Order Comment: No: Do not add to previous drawPerformed By: #### 49700, 37310, 18666 #### [facility] [address] [place] [address], USAPHOSPHORUS BLOODon 08-71-6210Fbrsixveo [Mass/Vol]3.5 mg/dL Normal2.5-5.0The [facility] HamiltonComment on above:Order Comment: No: Do not add to previous drawPerformed By: #### 84902, 31799, 32420 #### [facility] [address] [place] [address], USABASIC METABOLIC PANELon 47-26-8294Umvjvnp [Mass/Vol]8.6 mg/dLNormal8.6-10.3The [facility] HamiltonComment on above:Order Comment: No: Do not add to previous drawPerformed By: #### 83140, 57740, 41287 ####[facility] [place] [address], [place] Chloride [Moles/Vol]102 mmol/VVjbimw78-445Lmw [facility] HamiltonComment on above:Order Comment: No: Do not add to previous drawPerformed By: #### 43249, 37769, 81722 ####[facility] [place] [address], USACO2 [Moles/Vol]28 mmol/ELtyrtw85-63Kax [facility] HamiltonComment on above:Order Comment: No: Do not add to previous drawPerformed By: #### 09911, 47609, 99937 ####[facility] [place] [address], USACreatinine [Mass/Vol]0.52 mg/dLLow0.60-1.20The [facility] HamiltonComment on above:Order Comment: No: Do not add to previous drawPerformed By: #### 03832, 81941, 01135 ####[facility] [place] [address], USAGFR/1.73 sq M.predicted among blacks MDRD (S/P/Bld) [Vol rate/Area] mL/min/{1.73_m2}Normal>60The [facility] HamiltonComment on above:Order Comment: No: Do not add to previous drawPerformed By: #### 36684, 11686, 59275 ####[facility] [place] [address], USAGFR/1.73 sq M.predicted among non-blacks MDRD (S/P/Bld) [Vol rate/Area]mL/min/{1.73_m2}Normal>60The [facility] Comment on above:Order Comment: No: Do not add to previous drawPerformed By: #### 60246, 80413, 44521 ####[facility] [place] [address], USAGlucose [Mass/Vol]95 mg/kVBsiybl09-277Ajz [facility] HamiltonComment on above:Order Comment: No: Do not add to previous drawPerformed By: #### 79804, 30693, 00605 ####[facility] [place] [address], USAPotassium [Moles/Vol]4.1 mmol/L Normal3.5-5.1The [facility] HamiltonComment on above:Order Comment: No: Do not add to previous drawPerformed By: #### 95179, 90844, 10951 ####[facility] [place] [address], [place] Sodium [Moles/Vol]135 mmol/[id number] [facility] Comment on above:Order Comment: No: Do not add to previous drawPerformed By: #### [id number], [id number], [id number] ####[facility] [place] [address], USAUrea nitrogen [Mass/Vol]11 mg/dLNormal7-25The [facility] HamiltonComment on above:Order Comment: No: Do not add to previous drawPerformed By: #### [id number], [id number], [id number] ####[facility] [place] [address], [place]ACBC COMPLETE BLOOD COUNTon [id number] distribution width (RBC) [Ratio]14.6 %Normal 11.5-15.0The [facility] HamiltonComment on above:Order Comment: RLQ PERIHEPATIC FLUID DRAINAGEPerformed By: #### [id number] #### [facility] [address] [place] [address], USAHematocrit (Bld) [Volume fraction]25.2 %Low36.0-45.0The [facility] HamiltonComment on above:Order Comment: RLQ PERIHEPATIC FLUID DRAINAGEPerformed By: #### [id number] #### [facility] [address] [place] [address], USAHemoglobin (Bld) [Mass/Vol]7.9 g/dLLow12.0-15.0The [facility] HamiltonComment on above:Order Comment: RLQ PERIHEPATIC FLUID DRAINAGEPerformed By: #### [id number] #### [facility] [address] [place] [address], [facility] (RBC) [Entitic mass]30.2 gfMtkclf04.0-33.0The [facility] HamiltonComment on above:Order Comment: RLQ PERIHEPATIC FLUID DRAINAGEPerformed By: #### [id number] #### [facility] [address] [place] [address], [facility] FACILITYMCHC (RBC) [Mass/Vol]31.3 g/dLLow32.0-35.0The [facility] HamiltonComment on above:Order Comment: RLQ PERIHEPATIC FLUID DRAINAGEPerformed By: #### [id number] #### [facility] [address] [place] [address], [facility] FACILITYMCV (RBC) [Entitic vol]96.2 cBBdxhqu78.0-98.0The [facility] HamiltonComment on above:Order Comment: RLQ PERIHEPATIC FLUID DRAINAGEPerformed By: #### [id number] #### [facility] [address] [place] [address], USANucleated RBC/100 WBC (Bld) [Ratio]0 %Normal0-0The [facility] HamiltonComment on above:Order Comment: RLQ PERIHEPATIC FLUID DRAINAGEPerformed By: #### 32624 #### [facility] [address] [place] [address], USAPLAT NKP389 10*3/fZZwlf980-272Xcw [facility] HamiltonComment on above:Order Comment: RLQ PERIHEPATIC FLUID DRAINAGE Performed By: #### 95815 #### [facility] [address] [place] [address], USARBC (Bld) [#/Vol]2.62 10*6/uLLow3.80-5.00The [facility] HamiltonComment on above:Order Comment: RLQ PERIHEPATIC FLUID DRAINAGEPerformed By: #### 98315 #### [facility] [address] [place] [address], USAWBC (Bld) [#/Vol]8.42 10*3/uLNormal4.00-10.60The [facility] HamiltonComment on above:Order Comment: RLQ PERIHEPATIC FLUID DRAINAGEPerformed By: #### 88860 #### [facility] [address] [place] [address], USAMAGNESIUM BLOODon 30-87-8055Eqfxwdeom [Mass/Vol]2.2 mg/dL Normal1.9-2.7The [facility] HamiltonComment on above:Order Comment: No: Do not add to previous drawPerformed By: #### 91510, 99485, 51842 ####[facility] [place] [address], [place] PHOSPHORUS BLOODon 63-43-5571Urfeiutwr [Mass/Vol]3.4 mg/dLNormal2.5-5.0The [facility] HamiltonComment on above:Order Comment: No: Do not add to previous drawPerformed By: #### 35439, 06240, 23270 #### [facility] [address] [place] [address], USABASIC METABOLIC PANELon 79-60-7013Iciheia [Mass/Vol]8.4 mg/dLLow8.6-10.3The [facility] HamiltonComment on above:Order Comment: No: Do not add to previous drawPerformed By: #### 43112 #### [facility] [address] [place] [address], USAChloride [Moles/Vol]103 mmol/DYbrnvc51-789Wnn [facility] HamiltonComment on above:Order Comment: No: Do not add to previous drawPerformed By: #### 20228 #### [facility] [address] [place] [address], USACO2 [Moles/Vol]26 mmol/EAgeren14-72Ylw [facility] HamiltonComment on above:Order Comment: No: Do not add to previous draw Performed By: #### 27836 #### [facility] [address] [place] [address], USACreatinine [Mass/Vol]0.58 mg/dLLow0.60-1.20The [facility] HamiltonComment on above:Order Comment: No: Do not add to previous drawPerformed By: #### 87898 #### [facility] [address] [place] [address], USAGFR/1.73 sq M.predicted among blacks MDRD (S/P/Bld) [Vol rate/Area]mL/min/{1.73_m2}Normal>60The [facility] Comment on above:Order Comment: No: Do not add to previous drawPerformed By: #### 33668 #### [facility] [address] [place] [address], USAGFR/1.73 sq M.predicted among non-blacks MDRD (S/P/Bld) [Vol rate/Area]mL/min/{1.73_m2}Normal>60The [facility] Comment on above:Order Comment: No: Do not add to previous drawPerformed By: #### 75027 #### [facility] [address] [place] [address], USAGlucose [Mass/Vol]101 mg/aJRdta45-850Sdg [facility] HamiltonComment on above:Order Comment: No: Do not add to previous drawPerformed By: #### 19727 #### [facility] [address] [place] [address], USAPotassium [Moles/Vol]4.2 mmol/LNormal3.5-5.1The [facility] HamiltonComment on above:Order Comment: No: Do not add to previous drawPerformed By: #### 56595 #### [facility] [address] [address], USASodium [Moles/Vol]133 mmol/AIki808-927Jdx [facility] HamiltonComment on above:Order Comment: No: Do not add to previous drawPerformed By: #### 89094 #### [facility] [address] [place] [address], USAUrea nitrogen [Mass/Vol]9 mg/dLNormal7-25The [facility] HamiltonComment on above:Order Comment: No: Do not add to previous drawPerformed By: #### 12365 #### [facility] [address] [place] [address], USACBC COMPLETE BLOOD COUNTon 10-67-9942Btkdzehddko distribution width (RBC) [Ratio]14.7 %Kmaelk76.5-15.0The [facility] HamiltonComment on above:Order Comment: No: Do not add to previous draw Performed By: #### 34981, 37252, 20322 #### [facility] [address] [place] [address], USAHematocrit (Bld) [Volume fraction]24.1 %Low36.0-45.0The [facility] HamiltonComment on above:Order Comment: No: Do not add to previous drawPerformed By: #### 63821, 84648, 07537 #### [facility] [address] [place] [address], USAHemoglobin (Bld) [Mass/Vol]7.7 g/dLLow12.0-15.0The [facility] HamiltonComment on above:Order Comment: No: Do not add to previous drawPerformed By: #### 75773, 70917, 40117 #### [facility] [address] [place] [address], [facility] (RBC) [Entitic mass]29.8 iqMomfae32.0-33.0The [facility] HamiltonComment on above:Order Comment: No: Do not add to previous drawPerformed By: #### 60880, 17277, 03679 #### [facility] [address] [place] [address], [facility] FACILITYMCHC (RBC) [Mass/Vol]32.0 g/jSHptfal53.0-35.0The [facility] HamiltonComment on above:Order Comment: No: Do not add to previous drawPerformed By: #### 81776, 11846, 65021 #### [facility] [address] [place] [address], [facility]V (RBC) [Entitic vol]93.4 zNBpejot92.0-98.0The [facility] HamiltonComment on above:Order Comment: No: Do not add to previous drawPerformed By: #### 59411, 28432, 51639 #### [facility] [address] [place] [address], USANucleated RBC/100 WBC (Bld) [Ratio]0 %Normal0-0The [facility] HamiltonComment on above:Order Comment: No: Do not add to previous drawPerformed By: #### 26017, 55062, 17084 #### [facility] [address] [place] [address], USAPLAT VHE759 10*3/iSUdft478-220Zqs [facility] HamiltonComment on above:Order Comment: No: Do not add to previous draw Performed By: #### 41349, 34792, 32011 #### [facility] [address] [place] [address], USARBC (Bld) [#/Vol]2.58 10*6/uLLow3.80-5.00The [facility] HamiltonComment on above:Order Comment: No: Do not add to previous drawPerformed By: #### 44031, 92795, 72391 #### [facility] [address] [place] [address], USAWBC (Bld) [#/Vol]9.58 10*3/uLNormal4.00-10.60The [facility] HamiltonComment on above:Order Comment: No: Do not add to previous drawPerformed By: #### 94817, 95485, 02968 #### [facility] [address] [place] [address], USAMAGNESIUM BLOODon 30-08-3558Ioanjqerl [Mass/Vol]2.3 mg/dL Normal1.9-2.7The [facility] HamiltonComment on above:Order Comment: No: Do not add to previous drawPerformed By: #### 61778 #### [facility] [address] [place] [address], USAPHOSPHORUS BLOODon 10-16-1801Zewkisslt [Mass/Vol]3.5 mg/dL Normal2.5-5.0The [facility] HamiltonComment on above:Order Comment: No: Do not add to previous drawPerformed By: #### 12743 #### [facility] [address] [place] [address], USABASIC METABOLIC PANELon 68-86-8991Zdjiiid [Mass/Vol]8.1 mg/dLLow8.6-10.3The [facility] HamiltonComment on above:Order Comment: No: Do not add to previous drawPerformed By: #### 75279, 15745, 21371 #### [facility] [address] [place] [address], USAChloride [Moles/Vol]103 mmol/CCnwqmu00-609Zfn [facility] HamiltonComment on above:Order Comment: No: Do not add to previous drawPerformed By: #### 46263, 21884, 31299 #### [facility] [address] [place] [address], USACO2 [Moles/Vol]25 mmol/HJiibto28-73Sie [facility] HamiltonComment on above:Order Comment: No: Do not add to previous draw Performed By: #### 59390, 44539, 54505 #### [facility] [address] [place] [address], USACreatinine [Mass/Vol]0.60 mg/dLNormal0.60-1.20The [facility] HamiltonComment on above:Order Comment: No: Do not add to previous drawPerformed By: #### 44142, 73476, 77551 #### [facility] [address] [place] [address], USAGFR/1.73 sq M.predicted among blacks MDRD (S/P/Bld) [Vol rate/Area]mL/min/{1.73_m2}Normal>60The [facility] Comment on above:Order Comment: No: Do not add to previous drawPerformed By: #### 69695, 75267, 23184 #### [facility] [address] [place] [address], USAGFR/1.73 sq M.predicted among non-blacks MDRD (S/P/Bld) [Vol rate/Area]mL/min/{1.73_m2}Normal>60The [facility] Comment on above:Order Comment: No: Do not add to previous drawPerformed By: #### 20705, 78308, 07051 #### [facility] [address] [place] [address], USAGlucose [Mass/Vol]124 mg/oTSzks64-444Yei [facility] HamiltonComment on above:Order Comment: No: Do not add to previous drawPerformed By: #### 63829, 08782, 36429 #### [facility] [address] [facility] [place] [address], USAPotassium [Moles/Vol]4.0 mmol/LNormal3.5-5.1The [facility] HamiltonComment on above:Order Comment: No: Do not add to previous drawPerformed By: #### 83562, 26911, 11253 #### [facility] [address] [facility] [place] [address], USASodium [Moles/Vol]134 mmol/FApb380-575Mgh [facility] HamiltonComment on above:Order Comment: No: Do not add to previous drawPerformed By: #### 88592, 57720, 03551 #### [facility] [address] [facility] [place] [address], USAUrea nitrogen [Mass/Vol]8 mg/dLNormal7-25The [facility] HamiltonComment on above:Order Comment: No: Do not add to previous drawPerformed By: #### 32919, 00486, 68750 #### [facility] [address] [facility] [place] [address], USACBC W/DIFFon 10-44-3522YAJ IMM GRANS0.2 10*3/uLNormal 0.0-0.2The [facility] HamiltonComment on above:Performed By: #### 08306 #### [facility] [address] [address], USAABS NEUTROPHILS7.0 10*3/uLNormal1.6-7.6The [facility] HamiltonComment on above:Performed By: #### 47073 #### [facility] [address] [place] [address], USABasophils (Bld) [#/Vol]0.0 10*3/uLNormal0.0-0.2The [facility] HamiltonComment on above:Performed By: #### 24604 #### [facility] [address] [facility] [place] [address], USABasophils/100 WBC (Bld)0.2 %Normal0.0-1.0The [facility] HamiltonComment on above:Performed By: #### 01652 #### [facility] [address] [facility] [place] [address], USAEosinophils (Bld) [#/Vol]0.1 10*3/uLNormal0.0-0.5The [facility] HamiltonComment on above:Performed By: #### 57024 #### [facility] [address] [facility] [place] [address], USAEosinophils/100 WBC (Bld)0.9 %Normal0.0-6.0The [facility] HamiltonComment on above:Performed By: #### 29110 #### [facility] [address] [facility] [address], USAErythrocyte distribution width (RBC) [Ratio]14.5 %Normal 11.5-15.0The [facility] HamiltonComment on above:Performed By: #### 51855 #### [facility] [address] [facility] [address], USAHematocrit (Bld) [Volume fraction]23.5 %Low36.0-45.0The [facility] HamiltonComment on above:Performed By: #### 99428 #### [facility] [address] [place] [address], USAHemoglobin (Bld) [Mass/Vol]7.9 g/dLLow12.0-15.0The [facility] HamiltonComment on above:Performed By: #### 92240 #### [facility] [address] [place] [address], USAIMMATURE GRANS2.6 %High0.0-1.0The [facility] HamiltonComment on above:Performed By: #### 95036 #### [facility] [address] [place] [address], [facility] FACILITYLymphocytes (Bld) [#/Vol]1.2 10*3/uLNormal1.2-4.0The [facility] HamiltonComment on above:Performed By: #### 43580 #### [facility] [address] [place] [address], [facility] FACILITYLymphocytes/100 WBC (Bld)13.2 %Low20.0-45.0The [facility] HamiltonComment on above:Performed By: #### 80096 #### [facility] [address] [address], [facility] FACILITYMCH (RBC) [Entitic mass]31.0 jlFcetvw60.0-33.0The [facility] HamiltonComment on above:Performed By: #### 17023 #### [facility] [address] [address], USAMCHC (RBC) [Mass/Vol]33.6 g/cHUxgnmf46.0-35.0The [facility] HamiltonComment on above:Performed By: #### 31172 #### [facility] [address] [place] [address], USAMCV (RBC) [Entitic vol]92.2 tXTkpvgi96.0-98.0The [facility] HamiltonComment on above:Performed By: #### 97444 #### [facility] [address] [place] [address], USAMonocytes (Bld) [#/Vol]0.6 10*3/uLNormal0.1-1.0The [facility] HamiltonComment on above:Performed By: #### 34103 #### [facility] [address] [place] [address], USAMONOS6.5 %Normal5.0-12.0The [facility] HamiltonComment on above:Performed By: #### 27231 #### [facility] [address] [place] [address], USANeutrophils/100 WBC (Bld)76.6 %High40.0-72.0The [facility] HamiltonComment on above:Performed By: #### 37145 #### [facility] [address] [place] [address], USANucleated RBC/100 WBC (Bld) [Ratio]0 %Normal0-0The [facility] HamiltonComment on above:Performed By: #### 40051 #### [facility] [address] [place] [address], USAPLAT KFC999 10*3/dYEnmr591-823Nxm [facility] HamiltonComment on above:Performed By: #### 90087 #### [facility] [address] [place] [address], USARBC (Bld) [#/Vol]2.55 10*6/uLLow3.80-5.00The [facility] HamiltonComment on above:Performed By: #### 57215 #### [facility] [address] [place] [address], USAWBC (Bld) [#/Vol]9.12 10*3/uLNormal4.00-10.60The [facility] HamiltonComment on above:Performed By: #### 04029 #### [facility] [address] [place] [address], [facility] FACILITYMAGNESIUM BLOODon 04-17-9272Yhwldcxie [Mass/Vol]2.3 mg/dL Normal1.9-2.7The [facility] HamiltonComment on above:Order Comment: No: Do not add to previous drawPerformed By: #### 74372, 60455, 54527 #### [facility] [address] [place] [address], [facility] FACILITYPHOSPHORUS BLOODon 01-53-7145Xzkoffzuf [Mass/Vol]3.8 mg/dL Normal2.5-5.0The [facility] HamiltonComment on above:Order Comment: No: Do not add to previous drawPerformed By: #### 78406, 83098, 98102 #### [facility] [address]*ANAEROBIC CULTUREon 10-24-2021*ANAEROBIC CULTUREClinical Report: (C) Specimen: FLUID Collected: 10/24/2021 12:45 Status: Final Last Updated: 10/29/2021 07:44 (1) Post Surgical Abscess ISO (Final) ^No Anaerobes Isolated 5 Days Result changed by AVILA on 10/29/2021 07:44. The previous result was: ISO (Prelim) ^No strict anaerobes isolated to [facility] HospitalComment on above:Order Comment: Post Surgical AbscessPerformed By: #### 28074 #### [facility] [address]*BODY FLUID CULTUREon 10-24-2021*BODY FLUID CULTUREClinical Report: (D) Specimen: FLUID Collected: 10/24/2021 12:45 Status: Final Last Updated: 10/26/2021 09:49 (1) Post Surgical Abscess GRAM (Final) Many Polys No Bacteria Seen ISO (Final) Escherichia coli Light Growth ISOLATE: Escherichia coli MILLICENT (mcg/ml) AMP./SULBAC (AMS) 4/2 Susceptible AMPICILLIN (AM) <=4 Susceptible AZTREONAM (AZM) <=2 Susceptible CEFAZOLIN (CZ) 4 Susceptible CEFTRIAXONE (RN DIABETES EDUCATOR) <=1 Susceptible CIPROFLOXACIN (CIP) <=0.25 Susceptible ESBL (-/+) (ESBL) Negative GENTAMICIN (GM) <=2 Susceptible PIP/TAZO (TZP) <=2/4 Susceptible TOBRAMYCIN (TOB) <=2 Susceptible TRIMETH/SULFA (SXT) <=0.5/9.5 SusceptibleNoSt. Anthony's HospitalComment on above:Order Comment: Post Surgical AbscessPerformed By: #### 57535 #### [facility] [address] [place] [address], USABASIC METABOLIC PANELon 89-11-5152Syfmyzk [Mass/Vol]8.2 mg/dLLow8.6-10.3The [facility] HamiltonComment on above:Order Comment: No: Do not add to previous drawPerformed By: #### 08153, 18742, 88571 #### [facility] [address] [place] [address], USAChloride [Moles/Vol]103 mmol/YCzmubt56-241Nlb [facility] HamiltonComment on above:Order Comment: No: Do not add to previous drawPerformed By: #### 19919, 48281, 90268 #### [facility] [address] [place] [address], USACO2 [Moles/Vol]25 mmol/KByusmh87-66Eky [facility] HamiltonComment on above:Order Comment: No: Do not add to previous draw Performed By: #### 83281, 40873, 69976 #### [facility] [address] [place] [address], USACreatinine [Mass/Vol]0.49 mg/dLLow0.60-1.20The [facility] HamiltonComment on above:Order Comment: No: Do not add to previous drawPerformed By: #### 10946, 04544, 32569 #### [facility] [address] [place] [address], USAGFR/1.73 sq M.predicted among blacks MDRD (S/P/Bld) [Vol rate/Area]mL/min/{1.73_m2}Normal>60The [facility] Comment on above:Order Comment: No: Do not add to previous drawPerformed By: #### 65106, 71345, 02026 #### [facility] [address] [place] [address], USAGFR/1.73 sq M.predicted among non-blacks MDRD (S/P/Bld) [Vol rate/Area]mL/min/{1.73_m2}Normal>60The [facility] Comment on above:Order Comment: No: Do not add to previous drawPerformed By: #### 42406, 54937, 68251 #### [facility] [address] [place] [address], USAGlucose [Mass/Vol]94 mg/kYLhjhhe07-245Xkm [facility] HamiltonComment on above:Order Comment: No: Do not add to previous drawPerformed By: #### 75820, 90268, 32686 #### [facility] [address] [place] [address], USAPotassium [Moles/Vol]4.3 mmol/LNormal3.5-5.1The [facility] HamiltonComment on above:Order Comment: No: Do not add to previous drawPerformed By: #### 69011, 01376, 82168 #### [facility] [address] [place] [address], USASodium [Moles/Vol]134 mmol/BCjm054-129Tgw [facility] HamiltonComment on above:Order Comment: No: Do not add to previous drawPerformed By: #### 17948, 92839, 54225 #### [facility] [address] [place] [address], USAUrea nitrogen [Mass/Vol]8 mg/dLNormal7-25The [facility] HamiltonComment on above:Order Comment: No: Do not add to previous drawPerformed By: #### 65087, 48239, 29638 #### [facility] [address] [place] [address], USAC REACTIVE PROTEINon 19-24-3052PGP [Mass/Vol]136.0 mg/LHigh 0.0-7.0The [facility] HamiltonComment on above:Order Comment: No: Do not add to previous drawPerformed By: #### 00048 #### [facility] [address] [place] [address], USACALCIUM IONIZED CBGLon 01-41-0166LMRRRAP CALCIUM1.22 mmol/L Normal1.12-1.30The [facility] HamiltonComment on above:Performed By: #### 44633 #### [facility] [address] [place] [address], USACBC COMPLETE BLOOD COUNTon 59-16-8115Wfdjemcbndi distribution width (RBC) [Ratio]14.5 %Mamfml92.5-15.0The [facility] HamiltonComment on above:Order Comment: RLQ PERIHEPATIC FLUID DRAINAGE Performed By: #### 90650 #### [facility] [address] [place] [address], USAHematocrit (Bld) [Volume fraction]22.8 %Low36.0-45.0The [facility] HamiltonComment on above:Order Comment: RLQ PERIHEPATIC FLUID DRAINAGEPerformed By: #### 28715 #### [facility] [address] [place] [address], USAHemoglobin (Bld) [Mass/Vol]7.5 g/dLLow12.0-15.0The [facility] HamiltonComment on above:Order Comment: RLQ PERIHEPATIC FLUID DRAINAGEPerformed By: #### 26651 #### [facility] [address] [facility] [address], [facility]H (RBC) [Entitic mass]30.5 dkOsjvxu04.0-33.0The [facility] HamiltonComment on above:Order Comment: RLQ PERIHEPATIC FLUID DRAINAGEPerformed By: #### 31099 #### [facility] [address] [facility] [address], [facility]ULPHURHC (RBC) [Mass/Vol]32.9 g/oBYeifxl78.0-35.0The [facility] HamiltonComment on above:Order Comment: RLQ PERIHEPATIC FLUID DRAINAGEPerformed By: #### 64046 #### [facility] [address] [facility] [address], [facility] (RBC) [Entitic vol]92.7 jIUuxbat59.0-98.0The [facility] HamiltonComment on above:Order Comment: RLQ PERIHEPATIC FLUID DRAINAGEPerformed By: #### 91741 #### [facility] [address] [facility] [address], [facility] FACILITYNucleated RBC/100 WBC (Bld) [Ratio]0 %Normal0-0The [facility] HamiltonComment on above:Order Comment: RLQ PERIHEPATIC FLUID DRAINAGEPerformed By: #### 14991 #### [facility] [address] [facility] [address], [facility] FACILITYPLAT LJA073 10*3/pXHbjb844-910Sfp [facility] HamiltonComment on above:Order Comment: RLQ PERIHEPATIC FLUID DRAINAGE Performed By: #### 48688 #### [facility] [address] [facility] [address], [facility] FACILITYRBC (Bld) [#/Vol]2.46 10*6/uLLow3.80-5.00The [facility] HamiltonComment on above:Order Comment: RLQ PERIHEPATIC FLUID DRAINAGEPerformed By: #### 93588 #### [facility] [address] [place] [address], USAWBC (Bld) [#/Vol]12.81 10*3/uLHigh4.00-10.60The [facility] HamiltonComment on above:Order Comment: RLQ PERIHEPATIC FLUID DRAINAGEPerformed By: #### 31211 #### [facility] [address] [place] [address], USALIVER BATTERYon 38-39-7319Jzcbgni [Mass/Vol]2.8 g/dLLow 3.5-5.7The [facility] HamiltonComment on above:Order Comment: No: Do not add to previous drawPerformed By: #### 48000, 63349, 39104 #### [facility] [address] [place] [address], USAALKALINE [id number] IU/[id number] [facility] HamiltonComment on above:Order Comment: No: Do not add to previous draw Performed By: #### [id number], 51954, [id number] #### [facility] [address] [place] [address], [place]ALT [Catalytic activity/Vol]55 U/LHigh7-52The [facility] HamiltonComment on above:Order Comment: No: Do not add to previous drawPerformed By: #### [id number], 88549, 33099 #### [facility] [address] [place] [address], USAAST [Catalytic activity/Vol]38 U/VYobwjy27-57Dmv [facility] HamiltonComment on above:Order Comment: No: Do not add to previous drawPerformed By: #### [id number], 14842, 82676 #### [facility] [address] [place] [address], USABilirubin [Mass/Vol]2.9 mg/dLHigh0.3-1.0The [facility] HamiltonComment on above:Order Comment: No: Do not add to previous drawPerformed By: #### 23579, 87941, 73558 #### [facility] [address] [place] [address], USABilirubin.direct [Mass/Vol]1.7 mg/dLHigh0.0-0.2The [facility] HamiltonComment on above:Order Comment: No: Do not add to previous drawPerformed By: #### 09528, 81106, 30063 #### [facility] [address] [place] [address], USAProtein [Mass/Vol]5.6 g/dLLow6.0-8.3The [facility] HamiltonComment on above:Order Comment: No: Do not add to previous drawPerformed By: #### [id number], 66525, 03794 #### [facility] [address] [place] [address], USAMAGNESIUM BLOODon 74-40-3101Nfdvcappk [Mass/Vol]2.1 mg/dL Normal1.9-2.7The [facility] HamiltonComment on above:Order Comment: No: Do not add to previous drawPerformed By: #### 19678, 89621, 58628 #### [facility] [address] [place] [address], USAPHOSPHORUS BLOODon 79-99-7753Ewlycsrkc [Mass/Vol]3.6 mg/dL Normal2.5-5.0The [facility] HamiltonComment on above:Order Comment: No: Do not add to previous drawPerformed By: #### 64402, 16379, 84926 #### [facility] [address] [place] [address], USAPOC GLUCOSE LABon 09-98-8595Knacgif [Mass/Vol]101 mg/dLHigh 70-100The [facility] HamiltonComment on above:Performed By: #### 62208 #### [facility] [address] [place] [address], USAGlucose [Mass/Vol]107 mg/rOHbbp12-663Cbt [facility] HamiltonComment on above:Performed By: #### 70899 #### [facility] [address] [facility] [address], [facility]ARE FACILITYGlucose [Mass/Vol]114 mg/cXWrbd59-551Pza [facility] HamiltonComment on above:Performed By: #### 63249 #### [facility] [address] [facility] [address], [facility]ARE FACILITYPREALBUMINon 06-33-2368Nolrtkityj [Mass/Vol]12.6 mg/dLLow 17.0-34.0The [facility] HamiltonComment on above:Order Comment: No: Do not add to previous drawPerformed By: #### 39792, 57120, 19687 #### [facility] [address] [facility] [address], [facility]ARE FACILITYTRIGLYCERIDES BLOODon 50-57-7749Bjhdinnpkxmk [Mass/Vol]122 mg/oGWcigvg98-632Ivu [facility] HamiltonComment on above:Order Comment: No: Do not add to previous drawResult Comment: TRIGLYCERIDE REFERENCE RANGE: 20 YEARS AND OLDER CARDIOVASCULAR RISK LESS THAN 150 mg/dl LOW RISK 150 TO 199 mg/dl BORDERLINE RISK 200 mg/dl AND GREATER HIGH RISKPerformed By: #### 51694, 76820, 84364 #### [facility] [address] [facility] [address], USAAPTTon 04-53-8425dXOZ Coag (Bld) [Time]26.1 sNormal 25.0-35.0The [facility] HamiltonComment on above:Result Comment: ALL RESULTS MUST BE [...] BE USED FOR THIS PURPOSE.Performed By: #### 87460 #### [facility] [address] [place] [address], USABASIC METABOLIC PANELon 30-60-7147Vixvjyv [Mass/Vol]8.3 mg/dLLow8.6-10.3The [facility] HamiltonComment on above:Order Comment: No: Do not add to previous drawPerformed By: #### 46367, 70417, 01646 #### [facility] [address] [place] [address], USAChloride [Moles/Vol]102 mmol/GWnyibh13-794Buo [facility] HamiltonComment on above:Order Comment: No: Do not add to previous drawPerformed By: #### 20648, 29992, 65585 #### [facility] [address] [place] [address], USACO2 [Moles/Vol]26 mmol/IIjnvic66-98Bvy [facility] HamiltonComment on above:Order Comment: No: Do not add to previous draw Performed By: #### 44654, 96214, 38923 #### [facility] [address] [place] [address], USACreatinine [Mass/Vol]0.43 mg/dLLow0.60-1.20The [facility] HamiltonComment on above:Order Comment: No: Do not add to previous drawPerformed By: #### 62644, 30447, 99523 #### [facility] [address] [place] [address], USAGFR/1.73 sq M.predicted among blacks MDRD (S/P/Bld) [Vol rate/Area]mL/min/{1.73_m2}Normal>60The [facility] Comment on above:Order Comment: No: Do not add to previous drawPerformed By: #### 29447, 98755, 29528 #### [facility] [address] [place] [address], USAGFR/1.73 sq M.predicted among non-blacks MDRD (S/P/Bld) [Vol rate/Area]mL/min/{1.73_m2}Normal>60The [facility] Comment on above:Order Comment: No: Do not add to previous drawPerformed By: #### 87723, 69048, 42178 #### [facility] [address] [place] [address], USAGlucose [Mass/Vol]100 mg/gMQfokdp79-798Kho [facility] HamiltonComment on above:Order Comment: No: Do not add to previous drawPerformed By: #### 96073, 46720, 41061 #### [facility] [address] [place] [address], USAPotassium [Moles/Vol]3.3 mmol/LLow3.5-5.1The [facility] HamiltonComment on above:Order Comment: No: Do not add to previous drawPerformed By: #### 43080, 27899, 08903 #### [facility] [address] [place] [address], USASodium [Moles/Vol]135 mmol/AZlj547-099Kds [facility] HamiltonComment on above:Order Comment: No: Do not add to previous drawPerformed By: #### 18139, 09194, 72259 #### [facility] [address] [place] [address], USAUrea nitrogen [Mass/Vol]8 mg/dLNormal7-25The [facility] HamiltonComment on above:Order Comment: No: Do not add to previous drawPerformed By: #### 19826, 83778, 89280 #### [facility] [address] [place] [address], USACBC W/DIFFon 54-97-0256FIF IMM GRANS0.4 10*3/uLHigh0.0-0.2 The [facility] HamiltonComment on above:Order Comment: RLQ PERIHEPATIC FLUID DRAINAGEPerformed By: #### 53749 #### [facility] [address] [place] [address], USAABS GBGUWJUYJJJ15.4 10*3/uLHigh1.6-7.6The [facility] HamiltonComment on above:Order Comment: RLQ PERIHEPATIC FLUID DRAINAGEPerformed By: #### 24129 #### [facility] [address] [place] [address], USABasophils (Bld) [#/Vol]0.0 10*3/uLNormal0.0-0.2The [facility] HamiltonComment on above:Order Comment: RLQ PERIHEPATIC FLUID DRAINAGEPerformed By: #### 85892 #### [facility] [address] [place] [address], USABasophils/100 WBC (Bld)0.2 %Normal0.0-1.0The [facility] HamiltonComment on above:Order Comment: RLQ PERIHEPATIC FLUID DRAINAGEPerformed By: #### 70129 #### [facility] [address] [place] [address], USAEosinophils (Bld) [#/Vol]0.1 10*3/uLNormal0.0-0.5The [facility] HamiltonComment on above:Order Comment: RLQ PERIHEPATIC FLUID DRAINAGEPerformed By: #### 63929 #### [facility] [address] [place] [address], USAEosinophils/100 WBC (Bld)0.5 %Normal0.0-6.0The [facility] HamiltonComment on above:Order Comment: RLQ PERIHEPATIC FLUID DRAINAGEPerformed By: #### 63432 #### [facility] [address] [place] [address], USAErythrocyte distribution width (RBC) [Ratio]14.0 %Normal 11.5-15.0The [facility] HamiltonComment on above:Order Comment: RLQ PERIHEPATIC FLUID DRAINAGEPerformed By: #### 16555 #### [facility] [address] [place] [address], USAHematocrit (Bld) [Volume fraction]23.5 %Low36.0-45.0The [facility] HamiltonComment on above:Order Comment: RLQ PERIHEPATIC FLUID DRAINAGEPerformed By: #### 83281 #### [facility] [address] [place] [address], USAHemoglobin (Bld) [Mass/Vol]7.5 g/dLLow12.0-15.0The [facility] HamiltonComment on above:Order Comment: RLQ PERIHEPATIC FLUID DRAINAGEPerformed By: #### 15314 #### [facility] [address] [place] [address], USAIMMATURE GRANS2.6 %High0.0-1.0The [facility] HamiltonComment on above:Order Comment: RLQ PERIHEPATIC FLUID DRAINAGE Performed By: #### 42052 #### [facility] [address] [address], USALymphocytes (Bld) [#/Vol]1.7 10*3/uLNormal1.2-4.0The [facility] HamiltonComment on above:Order Comment: RLQ PERIHEPATIC FLUID DRAINAGEPerformed By: #### 72238 #### [facility] [address] [place] [address], USALymphocytes/100 WBC (Bld)10.9 %Low20.0-45.0The [facility] HamiltonComment on above:Order Comment: RLQ PERIHEPATIC FLUID DRAINAGEPerformed By: #### 68686 #### [facility] [address] [address], USAMCH (RBC) [Entitic mass]30.2 asCgfnkz33.0-33.0The [facility] HamiltonComment on above:Order Comment: RLQ PERIHEPATIC FLUID DRAINAGEPerformed By: #### 42607 #### [facility] [address] [place] [address], [facility]ARE FACILITYMCHC (RBC) [Mass/Vol]31.9 g/dLLow32.0-35.0The [facility] HamiltonComment on above:Order Comment: RLQ PERIHEPATIC FLUID DRAINAGEPerformed By: #### 43645 #### [facility] [address] [place] [address], [facility] FACILITYMCV (RBC) [Entitic vol]94.8 dDVmmfiq91.0-98.0The [facility] HamiltonComment on above:Order Comment: RLQ PERIHEPATIC FLUID DRAINAGEPerformed By: #### 74625 #### [facility] [address] [place] [address], USAMonocytes (Bld) [#/Vol]0.9 10*3/uLNormal0.1-1.0The [facility] HamiltonComment on above:Order Comment: RLQ PERIHEPATIC FLUID DRAINAGEPerformed By: #### 79833 #### [facility] [address] [place] [address], USAMONOS5.7 %Normal5.0-12.0The [facility] HamiltonComment on above:Order Comment: RLQ PERIHEPATIC FLUID DRAINAGEPerformed By: #### 61505 #### [facility] [address] [place] [address], USANeutrophils/100 WBC (Bld)80.1 %High40.0-72.0The [facility] HamiltonComment on above:Order Comment: RLQ PERIHEPATIC FLUID DRAINAGEPerformed By: #### 71449 #### [facility] [address] [place] [address], USANucleated RBC/100 WBC (Bld) [Ratio]0 %Normal0-0The [facility] HamiltonComment on above:Order Comment: RLQ PERIHEPATIC FLUID DRAINAGEPerformed By: #### 96265 #### [facility] [address] [place] [address], USAPLAT MOL255 10*3/jBImzv335-845Ggw [facility] HamiltonComment on above:Order Comment: RLQ PERIHEPATIC FLUID DRAINAGE Performed By: #### 52278 #### [facility] [address] [facility] [address], USARBC (Bld) [#/Vol]2.48 10*6/uLLow3.80-5.00The [facility] HamiltonComment on above:Order Comment: RLQ PERIHEPATIC FLUID DRAINAGEPerformed By: #### 72482 #### [facility] [address] [facility] [address], USAWBC (Bld) [#/Vol]15.45 10*3/uLHigh4.00-10.60The [facility] HamiltonComment on above:Order Comment: RLQ PERIHEPATIC FLUID DRAINAGEPerformed By: #### 64673 #### [facility] [address] [facility] [address], USACT ABDOMEN AND PELVIS W ORAL CONTRASTon [id number] ABDOMEN AND PELVIS W ORAL CONTRASTUnSt. Mary's Medical Center Department of Radiology [address] [place] [id number] Patient Name: JULIA QUISPE : 1970 Sex: F Age: Race: White Pt. Location: [id number] Patient Status: I Ordered Date: 10/23/2021 4:05:00 [...] atelectasis, favored over mild pneumonia There is qmpc-wg-acmavggv pericardial effusion Close follow-up is suggested to [...] within this structu (more content not included)...NormalThe [facility] HamiltonComment on above:Order Comment: Fluid Collection, distinguish colon from abscess for IR drainMAGNESIUM BLOODon 78-01-7110Cachmxxpj [Mass/Vol]2.1 mg/dLNormal1.9-2.7The [facility] HamiltonComment on above:Order Comment: No: Do not add to previous draw Performed By: #### 52593, 39761, 57466 #### [facility] [address] [place] [address], [facility]ARE FACILITYPHOSPHORUS BLOODon 39-70-1367Cjrsruhjb [Mass/Vol]2.6 mg/dL Normal2.5-5.0The [facility] HamiltonComment on above:Order Comment: No: Do not add to previous drawPerformed By: #### 35400, 35961, 82968 #### [facility] [address] [address], USAPROTHROMBIN TIMEon 59-14-1067SQF Coag (PPP) [Relative time] 1.07 {INR}Normal0.91-1.16The [facility] HamiltonComment on above:Order Comment: No: Do not add [...] OPTIMAL THERAPEUTIC RANGE. CHEST 1995;108:231S-246S.Performed By: #### 91109 #### [facility] [address] [facility] [address], USAPT Coag (PPP) [Time]13.9 oRxhwun24.3-14.8The [facility] HamiltonComment on above:Order Comment: No: Do not add to previous drawResult Comment: ALL RESULTS MUST BE INTERPRETED WITH RESPECT TO BLOOD DRAWING ARTIFACT OR DILUTION ERROR OF ANTICOAGULANT AT THE TIME OF SAMPLING.Performed By: #### 94418 #### [facility] [address] [facility] [address], USACardiovascular Lab Reporton 60-06-5372Ofgbbidukijvcp Lab ReportUnlogan regional hospital [place] Patient Name: Julia Quispe MR #: [id number] Physician: Josias Ruiz MD Service Date: 07/21/2021 Department of Birthdate: 1970 Medicine Room #: CC Division of Cardiology Adult Cardiovascular Services [facility] [address] [place] [id number] Cardiovascular Laboratory Report EP STUDY AND AVNRT [...] I felt t (more content not included)...NormalThe [facility] HamiltonBASIC METABOLIC PANELon 41-37-2862Zlpjsqx [Mass/Vol]9.3 mg/dLNormal8.6-10.3The [facility] HamiltonComment on above: Performed By: #### 30502, 38527, 05712 #### [facility] [address] [place] [address], USAChloride [Moles/Vol]109 mmol/UMzed02-958Dmj [facility] HamiltonComment on above:Performed By: #### 65222, 69999, 75386 #### [facility] [address] [place] [address], USACO2 [Moles/Vol]23 mmol/ZJtqlrb35-95Puz [facility] HamiltonComment on above:Performed By: #### 77643, 53428, 39813 #### [facility] [address] [place] [address], USACreatinine [Mass/Vol]0.87 mg/dLNormal0.60-1.20The [facility] HamiltonComment on above:Performed By: #### 33391, 17929, 16192 #### [facility] [address] [place] [address], USAGFR/1.73 sq M.predicted among blacks MDRD (S/P/Bld) [Vol rate/Area]mL/min/{1.73_m2}Normal>60The [facility] Comment on above:Performed By: #### 62090, 64194, 03701 #### [facility] [address] [place] [address], USAGFR/1.73 sq M.predicted among non-blacks MDRD (S/P/Bld) [Vol rate/Area]mL/min/{1.73_m2}Normal>60The [facility] Comment on above:Performed By: #### 19761, 79343, 91889 #### [facility] [address] [place] [address], USAGlucose [Mass/Vol]97 mg/jFBrexlr10-522Ajd [facility] HamiltonComment on above:Performed By: #### 94630, 12140, 54115 #### [facility] [address] [place] [address], USAPotassium [Moles/Vol]5.0 mmol/LNormal3.5-5.1The [facility] HamiltonComment on above:Performed By: #### 32118, 11385, 20546 #### [facility] [address] [place] [address], USASodium [Moles/Vol]140 mmol/LNhjoor894-335Ecv [facility] HamiltonComment on above:Performed By: #### 31021, 53146, 21630 #### [facility] [address] [facility] [address], USAUrea nitrogen [Mass/Vol]20 mg/dLNormal7-25The [facility] HamiltonComment on above:Performed By: #### 00381, 33315, 91218 #### [facility] [address] [facility] [address], [facility] FACILITYCBC W/DIFFon 67-82-0416YJC IMM GRANS0.0 10*3/uLNormal 0.0-0.2The [facility] HamiltonComment on above:Performed By: #### 36352 #### [facility] [address] [facility] [address], USAABS NEUTROPHILS7.4 10*3/uLNormal1.6-7.6The [facility] HamiltonComment on above:Performed By: #### 10991 #### [facility] [address] [facility] [address], USABasophils (Bld) [#/Vol]0.1 10*3/uLNormal0.0-0.2The [facility] HamiltonComment on above:Performed By: #### 66385 #### [facility] [address] [facility] [address], USABasophils/100 WBC (Bld)0.5 %Normal0.0-1.0The [facility] HamiltonComment on above:Performed By: #### 65806 #### [facility] [address] [facility] [address], USAEosinophils (Bld) [#/Vol]0.2 10*3/uLNormal0.0-0.5The [facility] HamiltonComment on above:Performed By: #### 77876 #### [facility] [address] [place] [address], USAEosinophils/100 WBC (Bld)1.6 %Normal0.0-6.0The [facility] HamiltonComment on above:Performed By: #### 54343 #### [facility] [address] [place] [address], USAErythrocyte distribution width (RBC) [Ratio]13.7 %Normal 11.5-15.0The [facility] HamiltonComment on above:Performed By: #### 28528 #### [facility] [address] [place] [address], USAHematocrit (Bld) [Volume fraction]44.8 %Xafqks23.0-45.0The [facility] HamiltonComment on above:Performed By: #### 11870 #### [facility] [address] [place] [address], USAHemoglobin (Bld) [Mass/Vol]14.7 g/vPLxzwid30.0-15.0The [facility] HamiltonComment on above:Performed By: #### 65175 #### [facility] [address] [place] [address], USAIMMATURE GRANS0.2 %Normal0.0-1.0The [facility] HamiltonComment on above:Performed By: #### 39843 #### [facility] [address] [place] [address], USALymphocytes (Bld) [#/Vol]1.7 10*3/uLNormal1.2-4.0The [facility] HamiltonComment on above:Performed By: #### 91881 #### [facility] [address] [place] [address], [facility]ARE FACILITYLymphocytes/100 WBC (Bld)17.2 %Low20.0-45.0The [facility] HamiltonComment on above:Performed By: #### 00955 #### [facility] [address] [place] [address], [facility]ARE FACILITYMCH (RBC) [Entitic mass]32.3 kiLefoot95.0-33.0The [facility] HamiltonComment on above:Performed By: #### 72858 #### [facility] [address] [place] [address], [facility]ARE FACILITYMCHC (RBC) [Mass/Vol]32.8 g/eHKslegz50.0-35.0The [facility] HamiltonComment on above:Performed By: #### 97880 #### [facility] [address] [place] [address], [facility]ARE FACILITYMCV (RBC) [Entitic vol]98.5 oXRzyu52.0-98.0The [facility] HamiltonComment on above:Performed By: #### 51684 #### [facility] [address] [place] [address], USAMonocytes (Bld) [#/Vol]0.6 10*3/uLNormal0.1-1.0The [facility] HamiltonComment on above:Performed By: #### 22810 #### [facility] [address] [place] [address], USAMONOS6.1 %Normal5.0-12.0The [facility] HamiltonComment on above:Performed By: #### 72756 #### [facility] [address] [place] [address], USANeutrophils/100 WBC (Bld)74.4 %High40.0-72.0The [facility] HamiltonComment on above:Performed By: #### 46820 #### [facility] [address] [place] [address], USANucleated RBC/100 WBC (Bld) [Ratio]0 %Normal0-0The [facility] HamiltonComment on above:Performed By: #### 36992 #### [facility] [address] [place] [address], USAPLAT DHN644 10*3/bWNpklqn597-865Cer [facility] HamiltonComment on above:Performed By: #### 71567 #### [facility] [address] [place] [address], USARBC (Bld) [#/Vol]4.55 10*6/uLNormal3.80-5.00The [facility] HamiltonComment on above:Performed By: #### 74566 #### [facility] [address] [place] [address], USAWBC (Bld) [#/Vol]9.92 10*3/uLNormal4.00-10.60The [facility] HamiltonComment on above:Performed By: #### 31910 #### [facility] [address] [place] [address], [facility] Vital Signs Date TimeVital SignValuePerforming YzuvgwjmzAkextfwe99-78-7788 10:07-0500 Diastolic blood lzpuenoh18 mm[Hg]Jacques Zavala MD Work Phone: 1(043)[address]11-05-2025 10:07-0500 Heart rate91 /Vicki Zavala MD Work Phone: 1(187)[address] [place], [place] 4845011-05-2025 10:07-0500 Respiratory rate16 /Vicki Zavala MD Work Phone: [phone])[address] [place], [place] 4845011-05-2025 10:07-0500 SaO2% (BldA) [Mass fraction]98 %Jacques Zavala MD Work Phone: 1(417)[address] [place], [place] 4845011-05-2025 10:07-0500 Systolic blood jshiytul869 mm[Hg]Jacques Zavala MD Work Phone: 1(542)[address] [place], [place] 4845011-05-2025 08:16-0500 Body hdyxel377.02 cmJacques Zavala MD Work Phone: 1(131)[address] [place], [place] 4845011-05-2025 08:16-0500 Body leqogt53.65 kgJacques Zavala MD Work Phone: 1(163)[address] [place], [place] 4845009-26-2025 11:46-0400 Body jzmitu067.02 cmJacques Zavala MD Work Phone: 1(329)[address] [place], [place] 4845009-26-2025 11:46-0400 Body mass index (BMI) [Ratio]29.9 kg/j2ExgmqoJacques Zavala MD Work Phone: 1(517)[address] [place], [place] 4845009-26-2025 11:46-0400 Body loesrc03.65 kgJacques Zavala MD Work Phone: 1(298)[address] [place], [place] 4845009-26-2025 11:46-0400 Diastolic blood qncbcenj02 mm[Hg]Jacques Zavala MD Work Phone: 1(977)[address] [place], [place] 4845009-26-2025 11:46-0400 Systolic blood hyraecre794 mm[Hg]Jacques Zavala MD Work Phone: 1(659)[address] [place], [place] 4845009-17-2025 15:42-0400 Body mass index (BMI) [Ratio]30.11 kg/n5Pyoyi Alvin DO Work Phone: 1(017)[facility] [place], [place] [address]Cjvtykdvsc21-58-3626 15:42-0400Body mwetzg41.11 kgCorey Alvin DO Work Phone: 1(464)[facility] [place], [place] [address]Dxqyrhrejn53-69-0763 15:42-0400Diastolic blood hhbjqped85 mm[Hg]Luis Angel Alvin DO Work Phone: 1(340)[facility] [place], [place] [address]Hubsrggvjm71-74-6410 15:42-0400Systolic blood xfwwixcu160 mm[Hg]Luis Angel Alvin DO Work Phone: 1([phone])[facility] [place], [place] [address]Tfdjfqahrw92-42-0646 15:20-0400Body mass index (BMI) [Ratio]30.96 kg/t7Cxjfv Alvin DO Work Phone: 1(980)[facility] [place], [place] [address]Eqnxlfrwhn44-18-1542 15:20-0400Body .27 kgCorey Alvin DO Work Phone: 1(707)[address] [place], [place] 9976509-11-2024 16:28-0400Body mass index (BMI) [Ratio]28.84 kg/v4Acnxi Alvin DO Work Phone: 1(910)[address] [place], [place] 9976509-11-2024 16:28-0400Body daynsk23.85 kgCorey Alvin DO Work Phone: 1(322)[facility] [place], [place] [address]Fomcvluyzd04-49-7574 16:28-0400Diastolic blood fhlbvfuo50 mm[Hg]Luis Angel Alvin DO Work Phone: 1(517)[facility] [place], [place] [address]Uqkfkdfhah37-86-8606 16:28-0400Systolic blood veskkygh742 mm[Hg]Luis Angel Alvin DO Work Phone: 1(095)[address] [place], [place] 9976502-06-2024 15:42-0500Body mass index (BMI) [Ratio]26.57 kg/q5Pktps Alvin DO Work Phone: [phone])[facility] [place], [place] [id number] 15:42-0500Body .04 kgCorey Alvin DO Work Phone: [phone] [place], [place] [id number] 15:42-0500Diastolic blood xjsqasht86 mm[Hg]Luis Angel Alvin DO Work Phone: [id number] 15:42-0500Systolic blood qhhtaplw215 mm[Hg]Luis Angel Alvin DO Work Phone: [id number] 15:30-0400Body bxibpz585.56 cmJacques Zavala Other [employer] Other 06-12-2023 15:30-0400Body mass index (BMI) [Ratio] 21.28 kg/d5Zyxfwi Braun Other [employer] Other 06-12-2023 15:30-0400Body ompkxw83.25 kgCharitoa Sally Other [employer] Other 06-12-2023 15:30-0400Diastolic blood trjorggg98 mm[Hg] Jacques Zavala Other [employer] Other 06-12-2023 15:30-0400Systolic blood vdouhova677 mm[Hg] Jacques Zavala Other [employer] Other 05-03-2023 11:30-0400Body fmkgda430.56 cmJacques Zavala Other [employer] Other 05-03-2023 11:30-0400Body mass index (BMI) [Ratio] 21.28 kg/r1UpoljxJacques Zavala Other [employer] Other 05-03-2023 11:30-0400Body blmkal18.25 kgCharitoa Sally Other [employer] Other 05-03-2023 11:30-0400Diastolic blood ggajgjpl53 mm[Hg] Jacques Zavala Other [facility] [employer] Other 05-03-2023 11:30-9714JzB6% (BldA) [Mass fraction]97 % Jacques Zavala Other [facility] [employer] Other 05-03-2023 11:30-0400Systolic blood tdytgryi607 mm[Hg] Jacques Sally Other [facility] [employer] Other Encounters Encounter DateEncounter TypeCare ProviderFacilityStart: [id number] HayesFacility:[facility]: 05-01-2025 End: 02-48-2214isiyrbfmjjDwfzkyo J DittyFacility:[facility] Hospitaltart: 23-08-8551Qqd-patient / Non-visitCuauhtemoc Muro MD-[facility] Work Phone: Start: 04-25-2025 End: 29-51-8844rgqvqtgttxXlpvxp R. ZieberFacility:[facility] Centertart: 04-18-2025 End: 43-82-4998Oxrcxntqo Result EncounterCorey Alvin DO Work Phone: noms External Department UnsolicitedStart: 04-18-2025 End: 56-79-9097Myxunkhyq Result EncounterCorey Alvin DO Work Phone: noms External Department UnsolicitedStart: 03-22-2025 End: 97-31-0504sfbwqiuxrlDytotz E Braun MD Work Phone: [facility] Work Phone: Start: 03-22-2025 End: 99-51-2809Lklkkjv encounter procedureJacques Zavala MD-[facility] Work Phone: Start: 03-19-2025 End: 80-63-6326bljehesfkmWwuuhj R. ZieberFacility:[facility] Centertart: 11-78-4543Sdx-patient / Non-visitCorey Alvin-[facility] Work Phone: Start: 03-13-2025 End: 75-17-2958ynsknnmhofWULPK FAZIONot AvailableStart: 03-13-2025 End: 59-19-3399Fzoqtcgh preventive med est patient 40-64yrsCorey Alvin DO Work Phone: NO Vergas OBGYNComment on above:Well woman exam with routine gynecological exam; Encounter for screening mammogram for malignant neoplasm of breast; Postmenopausal stateStart: 03-13-2025 End: 34-31-2925Gdxvbe flowsheetCorey Alvin DO Work Phone: NOOO Lyn OBGYNStart: 03-13-2025 End: 27-36-5558Oszncs flowsheetCorey Alvin DO Work Phone: NOMS Adamsue OBGYNStart: 03-13-2025 End: 87-05-1258Hgtbncdgk Result EncounterCorey Alvin DO Work Phone: noms External Department UnsolicitedStart: 03-13-2025 End: 36-30-2374Ptibisb encounter procedureCorey Alvin DO Work Phone: NO HealthcareStart: 02-28-2025 End: 25-48-8178Stsghi outpatient visit 25 minutesCajuve VARGASM Work Phone: NO [place] PodiatryComment on above:Ingrown toenail (Primary Dx); Pain of toe of right footStart: 02-28-2025 End: 56-76-0374gkioxyyxjeBWWWVZOEH H SMITHNot AvailableStart: 02-28-2025 End: 00-05-1699Deqeiw flowsAshutosh VARGASM Work Phone: no [place] PodiatryStart: 02-28-2025 End: 00-87-5905Beizxr flowsAshutosh VARGASM Work Phone: NOMS [place] PodiatryStart: 02-26-2025 End: 91-93-7483ehijyksekyNkgqyt Louie HayesFacility:[facility] HospitalStart: 02-21-2025 End: 53-29-1212dmbxtgqwmnESMIUMRBD SMITHNot AvailableStart: 02-19-2025 End: 88-78-4379zphbktvijbCftlkf Louie JuanerFacility:[facility] HospitalStart: 02-07-2025 End: 68-08-3623ivqutthvbrJftvyk Louie JuanerFacility:[facility] HospitalStart: 01-30-2025 End: 81-11-4273bqumzrclvfQocyo Jennifer UriasFacility:[facility] HospitalStart: 01-22-2025 End: 22-81-8122ilfqrghgsvMgdpvl Louie JuanerFacility:[facility] HospitalStart: 01-17-2025 End: 11-59-1695bqbprkhbimCusrdn Louie JuanerFacility:[facility] HospitalStart: 01-10-2025 End: 93-82-0639gkgjnhzlgbUgcsav Louie JuanerFacility:[facility] HospitalStart: 01-03-2025 End: 88-76-5220czybvwchrdYnscsy Louie RickseberFacility:[facility] HospitalStart: 01-01-2025 End: 61-18-6555yyyujfgmdfDslnyj Louie JuanerFacility:[facility] HospitalStart: 12-25-2024 End: 11-74-6059xyfmukggltCwdkwv Louie JuanerFacility:[facility] HospitalStart: 11-28-2024 End: 06-33-0840fhiqhognolQxgpgd Louie JuanerFacility:[facility] HospitalStart: 11-22-2024 End: 15-20-6581fipdzznfggJCTQRFJXP SMITHNot AvailableStart: 11-22-2024 End: 45-16-4137Sjjzqzs encounter procedureLuis Angel Esquivel DO Work Phone: NOMS BCP OBComment on above:Encounter for surveillance of injectable contraceptiveStart: 09-05-2024 End: 56-71-4963wtapvzolgyQLROJOTZM SMITHNot AvailableStart: 06-13-2024 End: 04-19-3979wlsoohzndjONSPUGSMU SMITHNot AvailableStart: 04-26-2024 End: 42-69-9042wmfjsqbrnhKG Jacques Poon Sally Work Phone: [facility] Work Phone: Start: 04-26-2024 End: 37-94-3471Isxmoug encounter procedureMD Jacques Zavala Work Phone: [facility] Work Phone: Start: 04-16-2024 End: 01-56-4082Cvynfmyte Result EncounterCorey Alvin DO Work Phone: noms External Department UnsolicitedStart: 04-16-2024 End: 83-25-5006Skriiezuk Result EncounterCorey Alvin DO Work Phone: noms External Department UnsolicitedStart: 04-12-2024 End: 54-19-2678Vipfizjfc Result EncounterCorey Alvin DO Work Phone: noms External Department UnsolicitedStart: 04-12-2024 End: 66-02-5898Ijujfpxdu Result EncounterCorey Alvin DO Work Phone: noms External Department UnsolicitedStart: 03-27-2024 End: 34-45-8052pbplhsztzcCPJIEDEBJ SMITHNot AvailableStart: 21-55-8618Kiu- patient / Non-visitMD Momin Sally Work Phone: [facility] Work Phone: Start: 03-07-2024 End: 61-19-2009Ueiwpknk preventive med est patient 40-64yrsCorey Alvin DO Work Phone: noms [facility] OBComment on above:Encounter for management and injection of depo-Provera; Breast cancer screening by mammogram; Postmenopausal stateStart: 03-07-2024 End: 24-23-7749Ohltzp flowsheetCorey Alvin DO Work Phone: NOBB BCP OBStart: 03-07-2024 End: 62-67-6782Jativljfq Result EncounterCorey Alvin DO Work Phone: noms External Department UnsolicitedStart: 03-07-2024 End: 06-25-0206Iizrcfdlm Result EncounterCorey Alvin DO Work Phone: noms External Department UnsolicitedStart: 03-01-2024 End: 67-27-1124zsvrnzzvsySQ Marcia E Braun Work Phone: [facility] Work Phone: Start: 03-01-2024 End: 06-63-6034Iffcwgx encounter procedureMD Jacques Zavala Work Phone: [facility] Work Phone: Start: 02-14-2024 End: 22-68-5135sukhjieknkSD Marcia E Braun Work Phone: [facility] Work Phone: Start: 02-14-2024 End: 92-16-5756Qzwzpgq encounter procedureMD Jacques Zavala Work Phone: [facility] [address] Work Phone: start: 12-06-2023 End: 46-21-5998fvjltdxlvwHF Marcia E Braun Work Phone: [facility] Work Phone: Start: 12-06-2023 End: 74-83-1007Kqlorjn encounter procedureMD Jacques Zavala Work Phone: [facility] [address] Work Phone: start: 09-29-2023 End: 08-65-9256drdcogznbdOS Marcia E Braun Work Phone: [facility] Work Phone: Start: 09-29-2023 End: 92-93-4849Loipfoi encounter procedureMD Jacques Zavala Work Phone: [facility] [address] Work Phone: start: 09-16-2023 End: 21-89-3203trlwzvwtvxTA Marcia E Braun Work Phone: [facility] Work Phone: Start: 09-16-2023 End: 83-53-9701Pwczgya encounter procedureMD Jacques Zavala Work Phone: [facility] [address] Work Phone: start: 08-02-2023 End: 01-66-3273Xcgomm outpatient visit 5 minutesCorey Alvin DO Work Phone: NOSS BCP OBComment on above:Encounter for management and injection of depo-ProveraStart: 07-29-2023 End: 74-33-7420bvuyjojjxvGN Marcia E Braun Work Phone: [facility] Work Phone: Start: 07-29-2023 End: 15-59-4560Clhjogq encounter procedureMD Jacques Zavala Work Phone: [facility] [address] Work Phone: start: 06-24-2023 End: 69-85-2879bovayiahrtDE Marcia E Braun Work Phone: [facility] Work Phone: Start: 06-24-2023 End: 48-27-8952Vrdrpuo encounter procedureMD Jacques Zavala Work Phone: [facility] [address] Work Phone: start: 06-22-2023 End: 36-74-2404npchxkvvytDqoqbp Braun Other [facility] [employer] Other Start: 60-33-9951Umakvnnql encounterJacques Chavira [facility] Systemtart: 06-07-2023 End: 79-87-6696urqejfezhaXO Marcia E Braun Work Phone: [facility] Work Phone: Start: 06-07-2023 End: 19-90-0248Yjjnjcb encounter procedure Jacques Sally Work Phone: [facility] [address] Work Phone: start: 05-24-2023 End: 36-19-2036obnpopixebMZ Marcia E Braun Work Phone: [facility] Work Phone: Start: 05-24-2023 End: 23-75-2945Rqjbkht encounter procedure Jacques Sally Work Phone: [facility] [address] Work Phone: start: 05-13-2023 End: 06-84-5611qvlsrxdvkwPD Jacques Cleve Sally Work Phone: [facility] Work Phone: Start: 05-13-2023 End: 72-92-5939Crebstu encounter procedure Jacques Zavala Work Phone: [facility] [address] Work Phone: start: 12-08-2022 End: 60-53-8768hqzzjeqjipVgamsu Braun Other [facility] [employer] Other Start: 20-50-8828Pzaomxdlb encounterJacques Chavira [facility] Systemtart: 12-06-2022 End: 36-44-4571ellaeqbtxhDgxnyv Braun Other [employer] Other Start: 50-80-1379Hmbdsg outpatient visit 15 minutes Jacques SallyKEILA [facility] ClinicStart: 62-44-9670Lzdwox outpatient visit 15 minutesJacques Chavira [facility] ClinicStart: 10-27-2022 End: 00-03-1618cfqoognkwbTH JACQUES Poon [facility] [employer] Other Start: 00-68-2514zojizqwrybLJWZUQPO CULLENFacility: Start: 05-07-2022 End: 73-07-9096ohaseyixwiIC LUIS ANGEL ALVIN .Facility:S7Kjnpv: 04-07-2022 Gynecological examination normalMarcia Sally Other [employer] Other Start: 02-01-2022 End: 62-14-9130rivnmzdbacCZ LUIS ANGEL ALVIN .Facility:P0Ctwyb: 11-05-2021 End: 59-97-3404Kkzeebiyew and management of inpatientMARCIA BRAUNFacility:[facility] Start: 10-23-2021 End: 98-37-8555Zkfmtmjwed and management of inpatientMARCIA BRAUNFacility:[facility] Procedures DateProcedureProcedure DetailPerforming ClinicianStart: 42-81-5238XR TOMOSYNTHESIS SCREENING BICorey Alvin DO Work Phone: Start: 49-83-4081APX,APTIMA HPV,AGE GDLNCorey Alvin DO Work Phone: Start: 75-01-5321Tueye test visual color cmprsn methsCorey Alvin DO Work Phone: Start: 86-75-4841LX DEXA AXIAL SKELETONCorey Alvin DO Work Phone: Start: 59-74-2232ZC TOMOSYNTHESIS SCREENING BICorey Alvin DO Work Phone: Start: 95-63-9716TLJ,APTIMA HPV,AGE GDLNCorey Alvin DO Work Phone: Start: 52-78-5357Iygvi X-ray of left elbowMD Jacques Zavala Work Phone: Start: 77-68-3178Zhbqb test visual color cmprsn methsCorey Monkeysee Work Phone: Start: 54-08-5203Raagfpmmw for malignant neoplasm of breastJacques Zavala Other End: 56-28-7756Httgsqkpuegfl care educationJacques Zavala Other End: 39-73-5616Osgyrdmcew screeningJacques Zavala Other Plan of Treatment DateCare ActivityDetailAuthorStart: 03-19-2026 End: 90-16-4891Imxzajj encounter iuvlyaool26/23/2026 3:00 PM EDT Procedure Visit [facility] [address] [place] [address] Luis Angel Esquivel DO [address] [place] [address] NOMS Lyn OBGYNStart: 03-17-2026 End: 38-33-2641Ucvehcg encounter ppembknlc11/21/2026 8:30 AM EDT Procedure Visit NOMLynda [address] [place] [address] Luis Angel Esquivel DO [address] [place] [address] NOMS Lyn OBGYNStart: 05-16-2025 End: 73-02-6253Hfheftav Iixwacv5405/16/2025 3:00 PM EST Clinical Support [facility] [address] [place], [id number] NOM[facility] Lyn OBGYNStart: 33-50-2009YyrisqenySelect Medical OhioHealth Rehabilitation Hospitaltart: 04-16-2025 End: 08-47-4716Rhglrit encounter wodkgfmah89/21/2025 3:30 PM EDT Office Visit [facility] [address] [place] [phone] Alissa Farooq DPM [address] [place] [address] NOMLynda Aguiar PodiatryStart: 03-13-2025 End: 64-83-7032Hfemzee encounter procedureNOMS BCP OBStart: 03-13-2025 End: 46-62-8659LFM Skeletal system Views for bone densityDEXA bone density Imaging Routine Well woman exam with routine gynecological exam Postmenopausal state Expected: 03/13/2025 (Approximate), Expires: 03/13/2026[facility] Comment on above:Expected: 03/13/2025 (Approximate), Expires: 03/13/2026Start: 03-13-2025 End: 99-48-9498AQ Breast - bilateral ScreeningBilateral screening mammogram Imaging Routine Well woman exam with routine gynecological exam Encounter for screening mammogram for malignant neoplasm of breast Expected: 03/13/2025, Expires: 05/13/2026[facility]estern [facility] Work Phone: comment on above:Expected: 03/13/2025, Expires: 05/13/2026Start: 02-28-2025 End: 63-93-6006Fnzgsyu encounter lqdhsgtui50/04/2025 3:15 PM EDT Office Visit [facility] [address] [place] [phone] Alissa Farooq DPM [address] [place] [address] ArrivedNOMS Aguiar PodiatryComment on above:ArrivedStart: 02-21-2025 End: 18-84-0404Xvflhmdz Xjcfzqb8002/21/2025 3:00 PM EDT Clinical Support [facility] [address] [place] [address] [place] [address] [facility] Start: 03-27-2024 End: 02-82-7941Xinvvnit Qqypoyo8203/27/2024 3:00 PM EDT Clinical Support [facility] [address] [place] [address] [place] [address] [facility] Start: 03-07-2024 End: 80-77-8686Xavmrii encounter procedureNOMS [facility] OBComment on above:Arrived Start: 03-07-2024 End: 90-38-4661JXJ Skeletal system Views for bone densityDEXA bone density Imaging Routine Postmenopausal state Expected: 03/07/2024 (Approximate), Expires:03/07/2025NOPR HealthcareComment on above:Expected: 03/07/2024 (Approximate), Expires: 03/07/2025Start: 03-07-2024 End: 23-36-0778PF Breast - bilateral ScreeningBilateral screening mammogram Imaging Routine Breast cancer screening by mammogram Expected: 03/07/2024, Expires: 05/07/2025[facility] Work Phone: comment on above:Expected: 03/07/2024, Expires: 05/07/2025Start: 51-15-4032Mnykm X-ray of left elbowXR elbow LT min 3V*[facility] Hospitaltart: 38-21-6975KP Elbow - left GE 3 ViewsSelect Medical OhioHealth Rehabilitation Hospitaltart: 10-25-2023 End: 78-52-7325Tpqsgvyv Iabjfaq1310/25/2023 3:00 PM EDT Clinical Support [facility] [address] [place] [address] [place] [address] [phone] [facility] OB Patient EducationFirsouthern virginia regional medical center Hemorrhoids Discharge Instructions Know your Meds [facility] Work Phone: THIN PREP TIS PAP AND HR HPV DNATHIN PREP TIS PAP AND HR HPV DNA Pathology and Cytology Routine Encounter for management and injection of depo-Provera Ordered: 03/07/2024NOPR HealthcareComment on above:Ordered: 03/07/2024THIN PREP TIS PAP AND HR HPV DNATHIN PREP TIS PAP AND HR HPV DNA Pathology and Cytology Routine Well woman exam with routine gynecological exam Ordered: 03/13/2025NOWestern [facility] Medical CenterComment on above:Ordered: 03/13/2025 Payers DatePayer CategoryPayerPolicy [id number] [id number] Cross Blue Shield [id number] 1.2.840.781241.1.13.693.2.7.3.274972.81113-99-4579KovzjlyWFKSY836320793-53-3071 [id number] 2.16.840.1.526242.3.57[id number] 2.840.1.369316.3.579.2.67498-00-8315Psmaptn0285997 2..840.1.541153.3.579.2.36379-41-4949Gduuqqk1514530 2..840.1.206114.3.579.2.19547-01-4310Utjwjjy2761625 2..840.1.845505.3.579.2.69203-05-9339Icryvnd0905349 2..840.1.183603.3.579.[id number] 2.16.840.1.895134.3.579.2.169360-37-0424Eudcpjf46688875 2..840.1.175078.3.579.2.062239-53-5410Aedqlfp45701913 2..840.1.958470.3.579.2.745014-04-5126Zpjbmjp7446354 2.16.840.1.000847.3.579.2.284951-44-0888Gtcrndx1187874 2.840.1.992868.3.579.2.352458-07-6519Zenwjay0656233 2.16840.1.235257.3.579.2.994276-57-3785Vzhcpuc6746139 2.840.1.608257.3.579.2.911227-41-0225Nwmpbmi63843491 2.0.1.397716.3.579.2.36670-77-6219Ecditkg46942475 2..1.890137.3.579.2.00228-81-2245Akxqvhc90254764 2.0.1.984819.3.579.2.21643-31-5858Laxmiiy52306088 2..1.742312.3.579.2.46186-15-2870Qwtprbe12108654 2..1.749039.3.579.2.09109-75-8573Yooyqzn96658448 2..1.607233.3.579.2.51249-19-8998Tqpxtwd32237897 2..1.393258.3.579.2.18829-03-8636Tjmiwee43667307 2..1.748805.3.579.2.77184-40-4917Fpwjpwq23559654 2.0.1.128740.3.579.2.16297-53-6098Cwltupi33213519 2.840.1.572116.3.579.2.68486-68-1226Amcdhmg34441284 2.0.1.160002.3.579.2.00304-86-2681Lplgfzh20935643 2..840.1.756479.3.579.2.32694-41-7777Okhnynn47061574 2.0.1.164972.3.579.2.90105-20-6010Djrvhdf44794562 2.0.1.053034.3.579.2.12973-25-2825GvozLovelace Medical CenterX5H007M62235 2.840.1.713733.55270953-33-6394YpqlkfqOZB503771658389450FgbsjkjVJL6629271[id number] Self-paySelf Qaw22u82sg9-3861-7py7-k105-64mmwhdkp9ndJoqwec's Compensation [id number]'s CompensationIndustrial Self Ins [id number] Social History DateTypeDetailFacilityUnknown if ever smokedPutnam [employer] Other Start: 07-25-2023 End: 44-36-5186Fgt Assigned At [facility] [employer] Other Start: 52-07-9202Nwvzmlb smoking status NHISCurrent some day smokerSelect Medical OhioHealth Rehabilitation Hospitaltart: 30-26-0194Ptf Assigned At [facility]tart: 01-06-2023 End: 84-60-3875Gkaalcr smoking status NHISEx-smokerNOMS Healthcare End: 75-23-0812Nwzejvo of tobacco useCurrent smokerNOMS Healthcare End: 60-03-0569Cauoiri of tobacco useCigarette SmokerNOMS HealthcareStart: 01-06-2023 End: 39-15-0436Rtpptxo use and exposureSmokeless tobacco non-userNOMS Healthcare Start: 08-02-2023 End: 99-70-6117Rcekxtd intakeCurrent drinker of alcohol (finding)[facility] Start: 07-25-2023 End: 85-24-6885Vqhhhgo of Social functionTIMPANOGOS REGIONAL HOSPITAL HealthcareStart: 34-87-7261Zfbuhag Comment5-10 years since last smokedTIMPANOGOS REGIONAL HOSPITAL HealthcareStart: 43-31-4269Rcrnfqi Comment3-4 drinks less than monthly in the past year, Caffeine intake: 1-2 cups per day coffeeTIMPANOGOS REGIONAL HOSPITAL HealthcareStart: 96-95-2766Ikumnp identityIdentifies as female gender (finding)[facility] HealthcareSexFemale (finding)[facility] Hospitaltart: 64-52-7355TkrEmnoowDXYZ Healthcare Clinical Notes 09-25-2021 to 03-22-2025 Note Date & JbcxHllmMrpcclwr53-39-4274 Evaluation note* Diagnosis Onset Date Resolution Status Admit Date Colon cancer screening acuteSeptember 2024 11:33amRectal bleedingacuteSept2024 11:33am [facility] Work Phone: 1(107) 871-855609-22-2025 NoteRadiology Sclerotherapy Sclerotherapy is a procedure that [...] including vitamins, herbs, eye drops, creams, and dzvb-oub-wmiajrm medicines. ? Any bleeding problems you have. [...] care provider tells you to. ? Taking hwxh-cmp-ysjnzrd medicines, vitamins, herbs, and supplements. Tests ? [...] right away. Call 911. (more content not included)...[facility] HospitalNjopjezc26-08-2554 History of Present illness Narrative* Nikole BelcherKAITLIN - 03/13/2025 3:00 PM EDT Reason for [...] nursing note reviewed. Exam conducted with a studio manager present. Vitals: Estimated body mass index [...] them. Patient can also view results via [employer]. I reinforced importance of condom use for [...] Luis Angel Esquivel DO documented in this encounterMadison Medical CenterDhjrznphzt26-44-7007 History of Present illness Narrative* Alissa Farooq [...] the future. RTC: prn. documented in this encounterMadison Medical CenterCpsvbdpnpu71-59-1791 NoteRadiology Sclerotherapy Sclerotherapy is a procedure that [...] including vitamins, herbs, eye drops, creams, and rxug-bqy-ahdndtc medicines. ? Any bleeding problems you have. [...] care provider tells you to. ? Taking fgwm-qup-jnislxw medicines, vitamins, herbs, and supplements. Tests ? [...] right away. Call 911. (more content not included)...[facility] HospitalUpuiqmvd98-64-4135 NotePROCEDURE: US Injection Varicose Vein Multiple HISTORY: [...] Janiya Hayes MD 02/20/25 6:01 am Technologist: [facility]08-13-2025 NoteRadiology Sclerotherapy Sclerotherapy is a procedure that [...] including vitamins, herbs, eye drops, creams, and fkoa-jjg-stneadl medicines. ? Any bleeding problems you have. [...] care provider tells you to. ? Taking gfbt-mgs-mzxhdlk medicines, vitamins, herbs, and supplements. Tests ? [...] right away. Call 911. (more content not included)...[facility] HospitalBbngpdzq26-16-9020 NotePROCEDURE: US Injection Varicose Vein Multiple COMPARISON: [...] Seda Urias MD 01/30/25 4:13 pm Technologist: [facility]07-28-2025 NoteRadiology Sclerotherapy Sclerotherapy is a procedure that [...] including vitamins, herbs, eye drops, creams, and mtze-axz-fwrbrof medicines. ? Any bleeding problems you have. [...] care provider tells you to. ? Taking omas-ejy-aupgysc medicines, vitamins, herbs, and supplements. Tests ? [...] right away. Call 911. (more content not included)...[facility] HospitalCongukrh81-47-3834 NoteProcedures Endovenous Ablation, Care After The following [...] and water are not available, use hand jig boring machine set up operator. ? Change your dressing as told by [...] are sitting or lying down. ? Take dkdh-ktv-ynuscft and prescription medicines only as told by [...] provider. Document Revised: 11/19/2021 Document Reviewed: 11/19/2021 Elephant.is Patient Education ? 2024 [facility]07-16-2025 Note Procedures Endovenous Ablation Endovenous ablation is [...] including vitamins, herbs, eye drops, creams, and atzb-rho-iudjzhf medicines. ? Any problems you or family [...] tells you to take them. ? Taking jmlu-gdi-nutuqii medicines, vitamins, herbs, and supplements. General instructions [...] stockings. These stockings help (more content not included)...[facility] HospitalWgwwdgrp77-74-2897 NoteProcedures Endovenous Ablation, Care After The following [...] and water are not available, use hand jig boring machine set up operator. ? Change your dressing as told by [...] are sitting or lying down. ? Take ogqp-wmk-vzkajtv and prescription medicines only as told by [...] provider. Document Revised: 11/19/2021 Document Reviewed: 11/19/2021 Elephant.is Patient Education ? 2024 [facility]zUniversity [facility]als [facility]07-07-2025 Note Procedures Endovenous Ablation Endovenous ablation is [...] including vitamins, herbs, eye drops, creams, and zwyn-tib-xiszjxs medicines. ? Any problems you or family [...] tells you to take them. ? Taking gsve-uoi-agatwrk medicines, vitamins, herbs, and supplements. General instructions [...] stockings. These stockings help (more content not included)...[facility] HospitalVnowsncf81-21-1040 NoteProcedures Endovenous Ablation, Care After The following [...] and water are not available, use hand jig boring machine set up operator. ? Change your dressing as told by [...] are sitting or lying down. ? Take tncu-mwz-talgzga and prescription medicines only as told by [...] provider. Document Revised: 11/19/2021 Document Reviewed: 11/19/2021 [employer]phant.is Patient Education ? [address] [facility] HospitalCjskxcqq86-82-5277 History of Present illness Narrative* Sharon Oliver [...] Staff: Sharon Oliver MA documented in this encounterMadison Medical CenterUmhyhxmhvr43-67-2603 History of Present illness Narrative* Nikole Belcher LPN - 03/07/2024 4:00 PM EDT Reason for Appointment: Patient ID: Julia Quispe is a 53 y.o. female who presents for [facility] Women Visit Patient presents today for [...] Abnormal Pap smear of cervix 1994? Asthma ([facility]) BMI 23.0-23.9, adult Breast cancer screening by [...] nursing note reviewed. Exam conducted with a studio manager present. Vitals: Estimated body mass index is 28.84 kg/m as calculated from the following: Height as of 01/09/24: 5' 3 . Weight as of this [...] Luis Angel Esquivel DO documented in this encounterMadison Medical CenterLuwtwlfvjv75-83-6574 History of Present illness Narrative* Karolyn Tom, [employer] - 08/02/2023 3:50 PM EST Reason for [...] Staff: Karolyn Santos LPN documented in this encounterMadison Medical [id number] Evaluation note* Encounter Date Diagnosis Assessment Notes Treatment Notes Treatment Clinical Notes October, Right calf pain (ICD-10 - M79.66 1) eval w d-dimer as she presently doesn't have symptoms October,Other fatigue (ICD-10 - R53.83)discussed differential - will get labs right now. Discussed sleep quality and regular routine. October,Trochanteric bursitis, right hip (ICD-10 - M70.61)Gave HO of specific stretches. [employer] Other 05-15-2022 NoteMR#: [id number] I [facility] Pt. Name: Julia Quispe Admitted: 11/04/2021 Discharged: [...] Tolentino CNP Date Trans: 11/07/2021 11:18 P/adrianna [id number] [facility]05-05-2022 NoteMR#: [id number] I [facility] Pt. Name: Julia Quispe Admitted: 10/23/2021 Discharged: 10/28/2021 Date of : 1970 Physician: Alejandrina Garza MD DISCHARGE SUMMARY PRINCIPAL DIAGNOSES: Abdominal abscess status post appendectomy on 10/14, and on 10/18, evacuation of hematoma done at outside hospital at [facility]. PROCEDURE PERFORMED: During this hospital stay was IR drain placed on 10/24 into the abdominal abscess. HOSPITAL COURSE: The patient is a 51-year-old female presented to the hospital for complaints of right lower quadrant pain. She recently underwent appendectomy on 10/14/2021 at [facility] and she was readmitted on 10/18 for right lower quadrant pain and she had a diagnostic laparoscopy for evacuation of hematoma on 10/19/2021 at [place]. She came back in for continued pain. [...] documentation from me. Date Dict: 10/28/2021/03:51 P/Katie Tolentino, SLAB TRIPPER Date Trans: 10/29/2021 05:27 A/mmo [id number] cc: Jonatan Beltran M.D. [address] [place] [address] [facility] [id number] History general Narrative - Reported* Type Description Date Medical History SVT Medical HistoryFactor 5Surgical HistoryAppendectomy09/2021 [facility] Other Evaluation [facility] Other Evaluation noteNo InformationNortSurgical Special[facility] Other Evaluation noteNo assessment information available [facility] Work Phone: Evaluation note* Diagnosis Encounter for management and injection of depo-Provera documented in this encounter [facility]* Diagnosis Onset Date Resolution Status Lateral epicondylitis, left elbow acute [facility] Work Phone: evaluation note* Diagnosis Onset Date Resolution Status Lateral epicondylitis, left elbow acuteLateral epicondylitis, left elbowacute [facility] Work Phone: Evaluation note* Diagnosis Encounter for management and injection of depo-Provera Breast cancer screening by mammogram Postmenopausal state Asymptomatic postmenopausal status (age-related) (natural) documented in this encounter [facility]* Diagnosis Encounter for surveillance of [...] status (age-related) (natural) documented in this encounter [facility] HealthcareHistory general Narrative - ReportedNortSurgical [facility] Other History general Narrative - Reported* Type Description Date Medical History SVT Medical HistoryFactor 5Medical HistoryAsthmaMedical HistoryPostmenopausalMedical HistorySituational mixed anxiety and depressive disorderMedical HistoryAcute deep vein thrombosis (DVT) of distal end of left lower extremitySurgical History Appendectomyurgical [id number] HistoryWRIST Hospitalization HistorySEE SURGICAL HX [facility] Other Hospital Discharge instructionsAdditional Instructions DISCHARGE INSTRUCTIONS FOR COLONOSCOPY WHAT TO EXPECT: - You may feel full, gassy or cramping after your procedure. In some cases, this may be from a few hours to a day. Walking may help relieve the discomfort. - If you have polyp(s) removed you may note some minor bloody discharge after your first bowel movements. - You should begin to recover from anesthesia within 1 hour of the procedure, however may feel groggy for the next 24 hours. DO's AND DON'Ts: - Call your doctor right away if you have a hard abdomen, severe pain, are passing lots of bright red blood or clots. - Call your doctor if you develop any rashes, hives or difficulty breathing. - Let your doctor know if you have not had a bowel movement by 3 days after your procedure. - If you take 81 mg aspirin for your heart it is safe to resume this medication. - If you take other blood thinner medications your doctor will instruct you when these can safely be resumed. - Do NOT drive for 24 hours. - Do NOT operate machinery such as power tools, lawn mowers, snow blowers, sewing machines, etc. for 24 hours. - Avoid alcoholic beverages and drugs for allergies, nerves, or sleep. - Do NOT stay alone. Do NOT leave your child unattended. - Do NOT make important personal or business decisions or sign any legal documents. - Eat solid foods and drink liquids in smaller amounts than usual until normal appetite returns. If you should experience an upset stomach, liquids high in sugar content (soda, Hector-Aid, non-acid juices) are recommended. - You can resume normal activities tomorrow. FOLLOW UP & RECOMMENDATIONS: - You did not need a colonoscopy for 10 years for colon cancer screening. - Notify the doctor if you have any problems. - The GI office will schedule you a follow-up. - Follow up with PCP. - Office number [phone].[facility] Work Phone: Reason for referral (narrative)No reason for referral information availableElyria Memorial Hospital Work Phone: Summary Purpose Family History No Family History Records Found Relationship Condition Age at Onset Recorded Date/T dianne Not Specified Heart disease Unknown Relationship Condition Age at Onset Recorded Date/T dianne mother Heart disease Unknown Relationship Condition Age at Onset Recorded Date/T dianne mother Heart disease Unknown Atrial fibrillationUnknownChronic obstructive pulmonary diseaseUnknown Advance Directives No Advanced Directives Records Found [...] M77.12 M77.12 M77.12 Chief Complaint M77.12 M77.12 [facility] DOI 05/12/23 LT ELBOW M77.12 - Lateral epicondylitis, left elbowReason for VisitLateral epicondylitis, left elbow Chief Complaint M77.12 [facility] DOI 05/12/23 LT ELBOW M77.12 - Lateral epicondylitis, left elbow 8 WEEKSReason for VisitLateral epicondylitis, left elbow Lateral epicondylitis, left elbow Chief Complaint Admit Date Blood in Bowels March 22, 2025 11:33am Chief Complaint Admit Date Blood in Bowels March 22, 2025 11:33am RECTAL BLEEDING May 01, 2025 7 :43am Reason for Visit Admit Date Colon cancer screening March 22, 11:33am Rectal bleeding March 22, 2025 11:33am Additional Source Comments INFORMATION SOURCE (unrecogn ized section and content) DATE CREATED AUTHOR 01/15/2022 [facility] DATE CREATED AUTHOR AUTHOR'S ORGANIZ ATION 03/06/2022 [facility] DATE CREATED AUTHOR AUTHOR'S ORGANIZ ATION 11/04/2022 [facility] DATE CREATED AUTHOR AUTHOR'S ORGANIZ ATION 03/15/2025 [facility] EPIC DATE CREATED AUTHOR AUTHOR'S ORGANIZ ATION 05/04/2025 [facility] DATE CREATED AUTHOR AUTHOR'S ORGANIZ ATION 05/09/2025 [facility] REASON FOR VISIT (unrecogniz ed section and content) ReasonCommentsContraceptionDepo injectionReasonCommentsWell Women VisitReason CommentsContraceptionReasonCommentsGynecologic Exam Care Teams (unrecognized sec tion and content) Team Status: Active Member Role Status Dates Jacques Zavala MD Primary Care Provider Active Team Status: Active Member Role Status Dates Jacques Zavala MD Primary Care Provider Active Start: March 13, 2025 Royer Gonzalez ProviderActiveStart: March 13, 2025 Team Status: Inactive Member Role Status Dates Jacques Zavala MD Primary Care Provider Active Start: March 22, 2025 End: March 22, 2025Jacques Zavala MDAttsilver ProviderActiveStart: March 22, 2025 End: March 22, 2025 Team Status: Inactive Member Role Status Dates Jacques Zavala MD Primary Care Provider Active Zaida Mckinney ProviderActiveTeam MemberRelationshipSpecialty Start DateEnd Date Jacques Zavala MD [address] [place] [phone] PCP - GeneralFamily Medicine01/06/23 Team Status: Inactive Member Role Status Dates Jacques Zavala MD Primary Care Provider Active Start: May 13, 2023 End: May 13Zaida Zeng ProviderActiveStart: May 13, 2023 End: May 13, 2023 Team Status: Inactive Member Role Status Dates Jacques Zavala MD Primary Care Provider Active Start: May 24, 2023 End: May 24Zaida Zeng ProviderActiveStart: May 24, 2023 End: May 24, 2023 Team Status: Inactive Member Role Status Dates Jacques Zavala MD Primary Care Provider Active Start: June 07, 2023 End: June 073Pamela D Rausch , APRNAttending ProviderActiveStart: June 07, 2023 End: June 07, 2023 Team Status: Inactive Member Role Status Dates Jacques Zavala MD Primary Care Provider Active Start: June 24, 2023 End: June 243Pamela D Rausch , APRNAttending ProviderActiveStart: June 24, 2023 End: June 24, 2023 Team Status: Inactive Member Role Status Dates Jacques Zavala MD Primary Care Provider Active Start: July 29, 2023 End: July 294Pamela D Rausch , APRNAttending ProviderActiveStart: July 29, 2023 End: July 29, 2023 Team Status: Inactive Member Role Status Dates Jacques Zavala MD Primary Care Provider Active Start: September 16, 2023 End: September 154Pamela D Rausch , APRNAttending ProviderActiveStart: September 16, 2023 End: September 16, 2023 Team Status: Inactive Member Role Status Dates Jacques Zavala MD Primary Care Provider Active Start: September 29, 2023 End: September 284Pamela D Rausch , APRNAttending ProviderActiveStart: September 29, 2023 End: September 29, 2023 Team Status: Inactive Member Role Status Dates Jacques Zavala MD Primary Care Provider Active Start: December 06, 2023 End: December 054Pamela D Rausch , APRNAttending ProviderActiveStart: December 06, 2023 End: December 06, 2023 Team Status: Inactive Member Role Status Dates Jacques Zavala MD Primary Care Provider Active Start: February 14, 2024 End: February 134Pamela D Rausch , APRNAttending ProviderActiveStart: February 14, 2024 End: February 14, 2024 Team Status: Inactive Member Role Status Dates Jacques Zavala MD Primary Care Provider Active Start: March 01, 2024 End: March 01, 2024Royer Bryant ProviderActiveStart: March 01, 2024 End: March 01, 2024 Team Status: Active Member Role Status Dates Jacques Zavala MD Primary Care Provider Active Start: March 01, 2024 Pasha A Gregoria , DOAttending ProviderActiveStart: March 01, 2024 Team Status: Active Member Role Status Dates Jacques Zavala MD Primary Care Provider Active Start: March 07, 2024 Luis Angel Alvin DOEloisa ProviderActiveStart: March 07, 2024 Team Status: Inactive Member Role Status Dates Jacques Zavala MD Primary Care Provider Active Start: April 26, 2024 End: April 26, 2024Pasha Kinney DOAttending ProviderActiveStart: April 26, 2024 End: April 26, 2024Team MemberRelationshipSpecialtyStart DateEnd Date Jacques Zavala MD [address] [facility] [place] [phone] PCP - GeneralFamily Medicine01/06/23Team MemberRelationshipSpecialtyStart DateEnd Date Jacques Zavala MD [address] [facility] [place] [address] PCP - GeneralFamily Medicine01/06/23Team MemberRelationshipSpecialtyStart DateEnd Date Jacques Zavala MD [address] [facility] [place] [phone] PCP - GeneralFamily Medicine01/06/23Team MemberRelationshipSpecialtyStart DateEnd Date Jacques Zavala MD [address] [facility] [place] [address] PCP - GeneralFamily Medicine01/06/23Team MemberRelationshipSpecialtyStart DateEnd Date Jacques Zavala MD [address] [facility] [place] [address] PCP - GeneralFamily Medicine01/06/23Team MemberRelationshipSpecialtyStart DateEnd Date Jacques Zavala MD [address] [facility] [place] [address] PCP - [facility]01/06/23Team MemberRelationshipSpecialtyStart DateEnd Date Jacques Zavala MD [address] [facility] [place] [address] PCP - [facility]01/06/23Team MemberRelationshipSpecialtyStart DateEnd Date Jacques Zavala MD [address] [facility] [place] [address] PCP - [facility]01/06/23 Team Status: Active Member Role/Relationship Status Dates Jacques Zavala MD Primary Care Provider Active Team Status: Active Member Role/Relationship Status Dates Jacques Zavala MD Primary Care Provider Active Start: March 13, 2025 Royer Gonzalez ProviderActiveStart: March 13, 2025 Team Status: Inactive Member Role/Relationship Status Dates Jacques Zavala MD Primary Care Provider Active Start: March 22, 2025 End: March 22, 2025Jayla Raymundo ProviderActiveStart: March 22, 2025 End: March 22, 2025 Team Status: Active Member Role/Relationship Status Dates Jacques Zavala MD Primary Care Provider Active Start: May 01, 2025 Jayla Calero ProviderActiveStart: May 01, 2025 Cuauhtemoc Muro MDOther ProviderActiveStart: May 01, 2025 Goals (unrecognized section and content) Goals may [...] BE BASED ON THE PRIMARY CLINICAL RECORDS. [facility]. provides no warranty or guarantee of the accuracy or completeness of information in this document.
[2025-05-16 16:18] LABS: Thyroid Stimulating Hormone 1.652 uIU/mL (0.358-3.740)
[2025-05-18 04:07] LABS: FSH 46.1 mIU/mL (.)
== END 2025-05-16 15:28 | disposition home or self-care (01) ==
LOC: LAB 15:29
PROVIDERS: PCP Family Medicine; Visit Provider Family Medicine
DX: R63.5 Abnormal weight gain (principal)
CPT/HCPCS: 36415; 83001; 84439; 84443